=== PATIENT | female | born 1940 | race Caucasian/White ===

== ENCOUNTER 2021-02-08 10:16 | Inpatient (IN) ==
[2021-02-08] MEDS ORDERED: dexAMETHasone**PF** 10 MG/ML VIAL IV ONE (10:26)
[2021-02-08] MEDS ORDERED: ALBUT/IPRATROP 3MG/0.5MG NEB 3 ML VIAL INH STA (10:26)
--- NOTE | 2021-02-08 10:29 | Emergency Department Note ---
Impression & Plan Chronic respiratory failure with hypoxia and hypercapnia, AICD (automatic cardioverter/defibrillator) present, Influenza A ED Provider Note NAME: JENNI ARECHIGA AGE: 81 SEX: F : 1940 ARRIVES VIA: Ambulance INFORMANT: Patient, ED PROVIDER(S): Dain Fonseca MD Chief Complaint: Shortness of breath HPI: Patient does present due to concern for shortness of breath which is been ongoing. The daughter Kristine with whom I spoke via telephone and stated that she has been home since the from [facility] after an illness with flu and Covid. Patient was pending last dose of steroid and Tamiflu today. The patient has had significant shortness of breath tachypnea and decreased oxygen saturation on her baseline 4 L with just moving from the bed to the bedside commode. The daughter states that typically she would improve in about 5 to 10 minutes of time over the last several days but that today after about 45 to 50 minutes did not improve in her symptoms. The patient has had some shortness of breath and cough. Patient last smoked 3 weeks ago. The patient was vaccinated for Covid with maternal but did not receive a booster. No seasonal flu shot. The patient has not had any chest pains abdominal pains vomiting or diarrhea. No loss of taste or smell. The daughter is the power of claims attorney and states that she is DNR/DNI but if she is in significant distress she would like her to be made comfortable. ROS: See HPI for pertinent positives and negatives. A total of 10 systems were reviewed and otherwise negative. Past medical history: See below Surgical history: See below Social history: See below Physical Exam: GENERAL: Moderately ill in appearance, wearing a mask, nasal cannula in place EYE EXAM: Normal conjunctiva. PERRL, no anisocoria and EOM's grossly intact w/o pain. NECK: Supple, no nuchal rigidity, no adenopathy, non-tender. No signs of meningismus. LUNGS: Coarse sounds bilateral bases with associated tachypnea. HEART: Tachycardic, no MRG. ABDOMEN: Abdomen soft, non-tender, normo-active bowel sounds, no masses, no rebound or guarding. BACK: No CVA TTP. SKIN: No rashes and no bruising. UPPER EXTREMITIES: Upper extremities are grossly normal. LOWER EXTREMITIES: Grossly normal, no edema. Negative Homans' sign bilaterally. NEURO EXAM: A&O x3, cranial nerves II-XII grossly intact, normal speech, moves all 4 extremities on command w/o issue. Differential diagnoses: Reactive airway disease, pneumonia, pneumothorax, COPD, CHF, infections, cardiac ischemia, pulmonary embolism, musculoskeletal, gastrointestinal, as well as other pathologies. Course: Patient was seen and evaluated the bedside. Full history physical exam was performed. EKG interpreted by me Sinus tachycardia, rate of 107, PVCs noted. Normal axis. Imaging Studies: See Below Cardiac monitoring: An order was placed for continuous cardiac monitoring. The monitor shows a rate of 98 with sinus rhythm. MDM: Patient was seen due to concern for worsening shortness of breath. Patient was ordered dexamethasone as well as duo nebs. The patient was placed on CPAP blood work was obtained. Patient is a white count of 13 with a normal H&H and platelet count. Patient's kidney function is normal with an elevated bicarb. The patient likely does have an elements of chronic CO2 retention as the patient's VBG shows a PCO2 of 65 with a pH of 7.38. Patient does have an elevated BUN to creatinine ratio. The patient's flu is positive Covid negative. RSV negative. Patient's chest x-ray does show atelectasis versus pneumonia with a trace left pleural effusion. I did speak to the on-call hospitalist Dr. Jaffe a CT angiography was ordered. Patient has no evidence of PE. No acute abnormalities based on CT angiography. Patient's procalcitonin is not elevated. BNP is not elevated. Critical Care: I have personally spent 75 minutes of critical care time in direct management of this patient. This includes bedside care, interpretation of diagnostic studies, and testing, discussion with consultants, patient, and family members, and other require inpatient management activities. This 75 minutes is in excess of all separately billable procedures. Past Med/Surg History Medical History Arthritis Chronic back pain Chronic systolic CHF (congestive heart failure) Dementia Depression GERD (gastroesophageal reflux disease) Goiter, nodular Hypokalemia Myocardial infarction Nephrolithiasis Paroxysmal atrial fibrillation Peripheral neuropathy Ulcerative colitis UTI (urinary tract infection) Surgical History AICD (automatic cardioverter/defibrillator) present Hx of cholecystectomy Social History Smoking Status: Unknown if ever smoked Tobacco Type: Cigarettes Smoking End Date: Last smoked 3 weeks ago; Hx Alcohol Use: No Hx Substance Use: No Current Living Situation: Family current occupational status: retired Feels Safe at Home: Yes Immunizations: Vaccinated for COVID-19 Moderna but without booster, unvaccinated for seasonal flu. Allergies Allergies Allergy/AdvReac Type Severity Reaction Status Date / Time No Known Allergies Allergy Verified 02/08/21 12:09 Home Meds Home Medications Medication Instructions Recorded Confirmed Lactobac 51-Bifidobac 1 cap PO DAILY@1200 03/28/20 02/08/21 3-L.lactis-S.thermophilus 4 billion cell capsule (Daily Probiotic (10 Strains)) atorvastatin 40 mg tablet 40 mg PO DAILY@1500 03/28/20 02/08/21 biotin 10,000 mcg capsule 10,000 mcg PO DAILY 03/28/20 02/08/21 cetirizine 10 mg tablet 10 mg PO QAM 03/28/20 02/08/21 cyanocobalamin (vitamin B-12) 5,000 mcg PO QAM 03/28/20 02/08/21 5,000 mcg sublingual tablet (Vitamin B-12) furosemide 40 mg tablet 40 mg PO QAM 03/28/20 02/08/21 lamotrigine 100 mg tablet 100 mg PO AMHS 03/28/20 02/08/21 lorazepam 0.5 mg tablet 0.5 mg PO DAILY@1500 03/28/20 02/08/21 multivitamin with calcium and 1 tab PO DAILY 03/28/20 02/08/21 minerals-folic acid 200 mcg tablet (One-A-Day Proactive 65 Plus) naloxegol 25 mg tablet (Movantik) 25 mg PO QAM 03/28/20 02/08/21 omeprazole 20 mg capsule,delayed 20 mg PO BID 03/28/20 02/08/21 release oxycodone-acetaminophen 10 mg-325 1 tab PO QID PRN 03/28/20 02/08/21 mg tablet paroxetine HCl 30 mg tablet 30 mg PO DAILY 03/28/20 02/08/21 potassium chloride 20 mEq 20 meq PO DAILY@1500 03/28/20 02/08/21 tablet,extended release(part/cryst) rivastigmine 1 patch TRANSDERMAL DAILY 03/28/20 02/08/21 sennosides 8.6 mg-docusate sodium 1 tab PO HS 03/28/20 02/08/21 50 mg tablet (Stool Softener-Laxative) baclofen 10 mg tablet 10 mg PO BID 02/08/21 02/08/21 fluticasone furoate 100 2 inh INHALATION BID 02/08/21 02/08/21 mcg-vilanterol 25 mcg/dose inhalation powder (Breo Ellipta) fluticasone propionate 50 2 spray INTRANASAL DAILY PRN 02/08/21 02/08/21 mcg/actuation nasal spray,suspension paroxetine HCl 37.5 mg 37.5 mg PO DAILY 02/08/21 02/08/21 tablet,extended release 24 hr quetiapine 25 mg tablet 50 mg PO HS 02/08/21 02/08/21 Results & Data (ED) Vital Signs Vital Signs - 24 hr 02/08/21 10:33 02/08/21 10:54 02/08/21 11:00 Temperature Temperature Source Pulse Rate 95 H 107 H 107 H Pulse Rate [Right Finger] Pulse Rate from SpO2 Sensor 106 H 114 H Respiratory Rate 40 H 33 H 32 H Respiratory Effort / Characteristics Spontaneous Respiratory Depth Shallow Respiratory Pattern Tachypnea Blood Pressure 135/90 Blood Pressure Mean 105 Pulse Oximetry 99 97 89 L Oxygen Delivery Method Fraction of Inspired Oxygen 50 Sepsis Recent Fever Within 48 Hours Sepsis New/Unexplained Change in Mental Status Sepsis Action Taken by Nursing 02/08/21 11:13 02/08/21 11:30 02/08/21 11:45 Temperature Temperature Source Pulse Rate 103 H Pulse Rate [Right Finger] 103 H Pulse Rate from SpO2 Sensor 99 H Respiratory Rate 40 H 34 H 20 Respiratory Effort / Characteristics Spontaneous Labored Spontaneous Respiratory Depth Respiratory Pattern Tachypnea Blood Pressure 118/84 Blood Pressure Mean 95 Pulse Oximetry 40 L 100 95 Oxygen Delivery Method CPAP CPAP Fraction of Inspired Oxygen Sepsis Recent Fever Within 48 Hours Sepsis New/Unexplained Change in Mental Status Sepsis Action Taken by Nursing 02/08/21 11:54 02/08/21 12:00 02/08/21 13:48 Temperature 37.3 C Temperature Source Oral Pulse Rate 99 H 96 H Pulse Rate [Right Finger] Pulse Rate from SpO2 Sensor 97 H Respiratory Rate 32 H 22 Respiratory Effort / Characteristics Spontaneous Respiratory Depth Normal Respiratory Pattern Regular Blood Pressure 117/78 Blood Pressure Mean 91 Pulse Oximetry 96 98 Oxygen Delivery Method Fraction of Inspired Oxygen 40 Sepsis Recent Fever Within 48 Hours No Sepsis New/Unexplained Change in Mental Status No Sepsis Action Taken by Nursing No Action Required Home Medications Current Medication List: was personally reviewed by me Laboratory Data Attestation: I reviewed the patient's lab results. Result diagrams: 02/08/21 11:04 02/08/21 11:04 Lab Results 02/08/21 02/08/21 02/08/21 Range/Units 10:48 11:04 11:04 WBC 13.49 H (4.8-10.8) K/uL RBC 4.22 (4.2-5.4) M/uL Hgb 12.2 (12.0-16.0) g/dL Hct 39.3 (37-47) % MCV 93.1 (80-100) fL MCH 28.9 (25-34) pg MCHC 31.0 L (32-36) g/dL RDW Std Deviation 57.4 H (36.4-46.3) fL RDW Coeff of Eric 17.3 H (11.5-14.5) % Plt Count 257 (130-400) K/uL MPV 10.8 H (7.4-10.4) fL Immature Gran % (Auto) 0.7 % Neut % (Auto) 80.2 % Lymph % (Auto) 11.4 % Ware % (Auto) 7.4 % Eos % (Auto) 0.2 % Baso % (Auto) 0.1 % Neut # (Auto) 10.81 H (1.4-6.5) K/uL Lymph # (Auto) 1.54 (1.2-3.4) K/uL Ware # (Auto) 1.00 H (0.11-0.59) K/uL Eos # (Auto) 0.03 (0-0.5) K/uL Baso # (Auto) 0.01 (0-0.2) K/uL Immature Gran # (Auto) 0.10 H (0.00-0.02) K/uL VBG pH (7.36-7.41) VBG pCO2 (38-50) mmHg VBG pO2 mmHg VBG HCO3 mmol/L VBG O2 Saturation % VBG Base Excess mEq/L Barometric Pressure mm/Hg Sodium 141 (136-145) mmol/L Potassium 3.8 (3.5-5.1) mmol/L Chloride 100 (98-107) mmol/L Carbon Dioxide 41 H* (21-32) mmol/L Anion Gap 0 L (3-11) BUN 24 H (7-18) mg/dl Creatinine 0.79 (0.6-1.2) mg/dl Est Cr Clr Drug Dosing 45.8 ml/min Est GFR ( Amer) 80.2 ml/min Est GFR (Non-Af Amer) 69.2 ml/min BUN/Creatinine Ratio 30.5 H (10-20) Glucose 98 (70-99) mg/dl Calcium 9.7 (8.5-10.1) mg/dl Magnesium 2.4 (1.8-2.4) mg/dl AST 17 (15-37) U/L ALT 23 (12-78) Alkaline Phosphatase 50 (45-117) U/L Troponin I < 0.015 (0-0.045) ng/ml NT-Pro-B Natriuret Pep 1406 (0-1800) pg/ml Total Protein 6.5 (6.4-8.2) gm/dl Albumin 3.1 L (3.4-5.0) gm/dl Globulin 3.4 (2.5-4.0) gm/dl Albumin/Globulin Ratio 0.9 (0.9-2) Procalcitonin (0-0.5) ng/ml SARS-CoV-2 (PCR) NEGATIVE (Negative) Influenza Type A (PCR) Positive A* (Neg) Influenza Type B (PCR) Negative (Neg) RSV (RT-PCR) Negative (Neg) 02/08/21 02/08/21 Range/Units 11:04 11:04 WBC (4.8-10.8) K/uL RBC (4.2-5.4) M/uL Hgb (12.0-16.0) g/dL Hct (37-47) % MCV (80-100) fL MCH (25-34) pg MCHC (32-36) g/dL RDW Std Deviation (36.4-46.3) fL RDW Coeff of Eric (11.5-14.5) % Plt Count (130-400) K/uL MPV (7.4-10.4) fL Immature Gran % (Auto) % Neut % (Auto) % Lymph % (Auto) % Ware % (Auto) % Eos % (Auto) % Baso % (Auto) % Neut # (Auto) (1.4-6.5) K/uL Lymph # (Auto) (1.2-3.4) K/uL Ware # (Auto) (0.11-0.59) K/uL Eos # (Auto) (0-0.5) K/uL Baso # (Auto) (0-0.2) K/uL Immature Gran # (Auto) (0.00-0.02) K/uL VBG pH 7.38 (7.36-7.41) VBG pCO2 65 H (38-50) mmHg VBG pO2 35 mmHg VBG HCO3 38 mmol/L VBG O2 Saturation < 60.0 % VBG Base Excess 10.5 mEq/L Barometric Pressure 740.1 mm/Hg Sodium (136-145) mmol/L Potassium (3.5-5.1) mmol/L Chloride (98-107) mmol/L Carbon Dioxide (21-32) mmol/L Anion Gap (3-11) BUN (7-18) mg/dl Creatinine (0.6-1.2) mg/dl Est Cr Clr Drug Dosing ml/min Est GFR ( Amer) ml/min Est GFR (Non-Af Amer) ml/min BUN/Creatinine Ratio (10-20) Glucose (70-99) mg/dl Calcium (8.5-10.1) mg/dl Magnesium (1.8-2.4) mg/dl AST (15-37) U/L ALT (12-78) Alkaline Phosphatase (45-117) U/L Troponin I (0-0.045) ng/ml NT-Pro-B Natriuret Pep (0-1800) pg/ml Total Protein (6.4-8.2) gm/dl Albumin (3.4-5.0) gm/dl Globulin (2.5-4.0) gm/dl Albumin/Globulin Ratio (0.9-2) Procalcitonin < 0.05 (0-0.5) ng/ml SARS-CoV-2 (PCR) (Negative) Influenza Type A (PCR) (Neg) Influenza Type B (PCR) (Neg) RSV (RT-PCR) (Neg) Administered Medications Discontinued Medications Albuterol (Albut/Ipratrop 3mg/0.5mg Neb 3 Ml Vial) 6 ml INH NOW STA Stop: 02/08/21 10:27 Last Admin: 02/08/21 11:12 Dose: 6 ml Documented by: [id number] Dexamethasone Sodium Phosphate (DexamethasonePf 10 Mg/Ml Vial) 6 mg IV NOW ONE Stop: 02/08/21 10:27 Last Admin: 02/08/21 11:10 Dose: 6 mg Documented by: [id number] Ioversol (Optiray 320 125ml) 88 ml IV ONCE ONE Stop: 02/08/21 14:05 Last Admin: 02/08/21 14:12 Dose: 88 ml Documented by: [id number] Imaging Data Radiologist's Impression: Chest X-Ray 02/08/21 10:26 XR chest 1V portable HISTORY: Dyspnea COMPARISON: Chest and left rib series 03/28/2020. FINDINGS: No pneumothorax. Blunting of the left lateral costophrenic sulcus may represent a trace left pleural effusion. Faint patchy density also noted at the left lung base. The right lung appears clear. The heart is normal in size. There are poststernotomy changes and left-sided pacemaker/defibrillator. No evidence for pulmonary edema. IMPRESSION: 1. Trace left pleural effusion. 2. Patchy densities within the left lung base may represent atelectasis or pneumonia. 3. No evidence for pulmonary edema. ACT 112: Negative or not required by law. Electronically signed by: Fred Corbett M.D. 02/08/2021 10:58 AM Chest CTA 02/08/21 12:46 CT angio chest PE protocol CLINICAL HISTORY: Dyspnea TECHNIQUE: Multidetector row helical CT of the chest was performed. Coronal and sagittal reformations were obtained. Coronal and sagittal MIPS were obtained from the axial data set and were submitted for review. Automated dose lowering techniques and/or adjustment according to patient size were utilized for this e xam. Comparison: Comparison is made to chest one view 02/08/2021 FINDINGS: Lungs and pleura: Scattered calcified granulomata are seen. There is atelectasis at the bilateral lung bases. Heart and pericardium: There is cardiomegaly without evidence of pericardial effusion. Mitral valvular prosthesis is partially visualized. Vessels: No evidence of pulmonary embolism. Moderate atherosclerotic disease is seen. Mediastinum and vaishnavi: Unremarkable. Chest wall and lower neck: Unremarkable. Abdomen: A hiatal hernia is seen. Bones: Degenerative changes in the thoracic spine. IMPRESSION: No evidence of pulmonary embolism. No acute abnormalities are seen. ACT 112: Negative or not required by law. Electronically signed by: Gerald Hawk M.D. 02/08/2021 2:31 PM Discharge Plan Visit Data Chief Complaint: Shortness of Breath/Dyspnea Stated Complaint: SOB ED Provider: Dain Fonseca Discharge Problem: Chronic respiratory failure with hypoxia and hypercapnia, AICD (automatic cardioverter/defibrillator) present, Influenza A Forms Stand Alone Forms: [facility] Prescriptions Prescriptions: No Action furosemide 40 mg tablet 40 mg PO QAM RF: 0 atorvastatin 40 mg tablet 40 mg PO DAILY@1500 RF: 0 cetirizine 10 mg tablet 10 mg PO QAM RF: 0 sennosides-docusate sodium [Stool Softener-Laxative] 8.6-50 mg tablet 1 tab PO HS RF: 0 potassium chloride 20 mEq tablet,ER particles/crystals 20 meq PO DAILY@1500 RF: 0 lorazepam 0.5 mg tablet 0.5 mg PO DAILY@1500 RF: 0 oxycodone-acetaminophen 10-325 mg tablet 1 tab PO QID PRN (Reason: Pain) RF: 0 paroxetine HCl 30 mg tablet 30 mg PO DAILY RF: 0 biotin 10,000 mcg capsule 10,000 mcg PO DAILY RF: 0 omeprazole 20 mg capsule,delayed release(DR/EC) 20 mg PO BID RF: 0 lamotrigine 100 mg tablet 100 mg PO AMHS RF: 0 rivastigmine 9.5 mg/24 hr patch 24 hour 1 patch transdermal DAILY RF: 0 cyanocobalamin (vitamin B-12) [Vitamin B-12] 5,000 mcg tablet, sublingual 5,000 mcg PO QAM RF: 0 Movantik 25 mg tablet 25 mg PO QAM RF: 0 One-A-Day Proactive 65 Plus 200 mcg tablet 1 tab PO DAILY RF: 0 Daily Probiotic (10 Strains) 4 billion cell capsule 1 cap PO DAILY@1200 RF: 0 quetiapine 25 mg tablet 50 mg PO HS RF: 0 baclofen 10 mg tablet 10 mg PO BID RF: 0 fluticasone propionate 50 mcg/actuation spray,suspension 2 spray INTRANASAL DAILY PRN (Reason: Congestion) RF: 0 paroxetine HCl 37.5 mg tablet extended release 24 hr 37.5 mg PO DAILY RF: 0 Breo Ellipta 100-25 mcg/dose blister with device 2 inh INHALATION BID RF: 0 Referrals Referrals: Bony Guerrero M.D. [Primary Care Provider] -
--- NOTE | 2021-02-08 11:00 | XRay Report ---
XR chest 1V portable HISTORY: Dyspnea COMPARISON: Chest and left rib series 03/28/2020. FINDINGS: No pneumothorax. Blunting of the left lateral costophrenic sulcus may represent a trace lef t pleural effusion. Faint patchy density also noted at the left lung base. The right lung appears mahnaz ar. The heart is normal in size. There are poststernotomy changes and left-sided pacemaker/defibrilla tor. No evidence for pulmonary edema. IMPRESSION: 1. Trace left pleural effusion. 2. Patchy densities within the left lung base may represent atelectasis or pneumonia. 3. No evidence for pulmonary edema. ACT 112: Negative or not required by law. Electronically signed by: Fred Corbett M.D. 02/08/2021 10:58 AM
[2021-02-08 11:24] LABS: Base Excess VBG 10.5 mEq/L; HCO3 VBG 38 mmol/L; PCO2 VBG 65 mmHg (38-50); PO2 VBG 35 mmHg; pH VBG 7.38 (7.36-7.41)
[2021-02-08 11:26] LABS: Basophils # (auto) 0.01 K/uL (0-0.2); Basophils % (auto) 0.1 %; Eosinophils # (auto) 0.03 K/uL (0-0.5); Eosinophils % (auto) 0.2 %; Hematocrit (blood only) 39.3 % (37-47); Hemoglobin 12.2 g/dL (12.0-16.0); Immature Granulocytes % (auto) 0.7 %; Lymphocytes # (auto) 1.54 K/uL (1.2-3.4); Lymphocytes % (auto) 11.4 %; Mean Corpuscular Hemoglobin 28.9 pg (25-34); Mean Corpuscular Volume 93.1 fL (80-100); Mean Platelet Volume 10.8 fL (7.4-10.4); Monocytes % (auto) 7.4 %; Neutrophils # (auto) 10.81 K/uL (1.4-6.5); Neutrophils % (auto) 80.2 %; Platelet Count 257 K/uL (130-400); RDW Coefficient of Variation 17.3 % (11.5-14.5); RDW Standard Deviation 57.4 fL (36.4-46.3); Red Blood Count 4.22 M/uL (4.2-5.4); White Blood Count 13.49 K/uL (4.8-10.8)
[2021-02-08 11:29] LABS: Oxygen Saturation VBG < 60.0 %
[2021-02-08 12:01] LABS: Alanine Aminotransferase 23 (12-78); Albumin Globulin Ratio 0.9 (0.9-2); Albumin Level 3.1 gm/dl (3.4-5.0); Alkaline Phosphatase 50 U/L (45-117); Anion Gap 0 (3-11); Aspartate Aminotransferase 17 U/L (15-37); BUN Creatinine Ratio 30.5 (10-20); Blood Urea Nitrogen 24 mg/dl (7-18); Calcium 9.7 mg/dl (8.5-10.1); Carbon Dioxide 41 mmol/L (21-32); Chloride 100 mmol/L (98-107); Creatinine Clr Calc Pharmacy 45.8 ml/min; Est GFR (African American) 80.2 ml/min; Est GFR (Non-African American) 69.2 ml/min; Globulin 3.4 gm/dl (2.5-4.0); Glucose 98 mg/dl (70-99); Magnesium 2.4 mg/dl (1.8-2.4); NT Pro B Type Natriuretic Pept 1406 pg/ml (0-1800); Potassium 3.8 mmol/L (3.5-5.1); Sodium 141 mmol/L (136-145); Total Protein 6.5 gm/dl (6.4-8.2); Troponin I < 0.015 ng/ml (0-0.045)
[2021-02-08 12:06] LABS: Influenza B virus by PCR Negative (Neg); RSV by PCR Negative (Neg); SARS CoV2 RNA(COVID-19) InHosp NEGATIVE (Negative)
[2021-02-08 12:20] LABS: Influenza A virus by PCR Positive (Neg)
--- NOTE | 2021-02-08 12:20 | Electrocardiogram Report ---
Test Reason : Blood Pressure : / mmHG Vent. Rate : 107 BPM Atrial Rate : 108 BPM P-R Int : 142 ms QRS Dur : 092 ms QT Int : 322 ms P-R-T Axes : 058 061 -26 degrees QTc Int : 429 ms Poor data quality, interpretation may be adversely affected Sinus tachycardia with frequent , and consecutive Premature ventricular complexes Poor R wave progression, consider anterior FL vs. lead placement vs. LVH Abnormal ECG No previous ECGs available Confirmed by Malick Barfield ([id number]) on 02/08/2021 12:19:49 PM Referred By: REFERRED SELF Confirmed By:Malick Barfield
--- NOTE | 2021-02-08 13:32 | History & Physical Report ---
Date of Service February 08, 2021 Assessment & Plan (1) Influenza A: (2) Pneumonia and influenza: Plan: Ms. Keita is an 81 year old female with a history of Asthma, COPD, Chronic Hypoxic and Hypercapnic Respiratory Failure (on chronic supplemental O2 at 4 L/min), CAD s/p NM 2005 s/p 2 Intracoronary Stents followed by CABG x 2 Vessels, Ischemic Cardiomyopathy s/p AICD, Chronic Systolic CHF, Dementia, GERD, Depression, Nodular Goiter, Peripheral Neuropathy, Ulcerative Colitis, Nephrolithiasis, and Paroxysmal Atrial Fibrillation who developed significant shortness of breath, adventitious breath sounds, coughing, and hypoxemia on 01/21/2021. She was subsequently admitted [facility] on 01/25/25 -- but I do not have access to her medical records that hospitalization but this is when she was diagnosed with COVID 19 pneumonia. She was subsequently discharged, but she continued to have SOB, hypoxia, cough, pleuritic chest pain and was subsequently admitted [facility] from 01/29/21 through 02/03/21 with SARS Co-V 2 Pneumonia, tested positive for Influenza, and was diagnosed with Acute on Chronic Hypoxic and Hypercapnic Respiratory Failure. During that hospitalization her troponin level was elevated and she was diagnosed with an NSTEMI. Patient was treated with IV Solu-Medrol, supplemental O2, and Tamiflu. She continued on oral Dexamethasone and Tamiflu x 5 days following discharge (today was her last day of these medications). Patient has continued to cough, is SOB at rest and with exertion, becomes hypoxic with minimal exertion (according to her daughter her SpO2 dropped from the mid 90's into the mid 80's just transferring to her bedside commode today). Her oxygen level would come back up within 5-10 minutes of rest, however over the past couple of days her SpO2 remained in the mid 80s for about 45 to 50 minutes after resting. Today she was struggling very much to catch her breath, so EMS was activated, and she was brought here for further evaluation. Patient was started on CPAP in the ER, her oxygen saturations are staying up in the upper 90's and she is much less short of breath at this point. CTA of the chest shows no evidence of pulmonary embolism. Chest x-ray shows patchy densities in the left base which could represent pneumonia versus atelectasis. She is currently afebrile, but has an elevated WBC count of 13.49 K/uL with a leftward shift. Venous blood gas shows a pCO2 of 65 with a PO2 of 35 and a pH of 7.38. Procalcitonin level is < 0.05ng/ml. Influenza a is positive. SARS-CoV-2 PCR is negative. Recommend the followin. Admit to telemetry. 2. Continue CPAP with supplemental oxygen, wean off as tolerated. 3. Continue Cefepime and azithro in case of secondary bacterial PNA, Gram neg PNA given recent hospitalizations -check MRSA swab and start MRSA coverage if positive 4. Continue IV Dexamethasone 6 mg daily. 5. DuoNeb nebulizers q.i.d.. 6. Monitor daily laboratories. 7. Pulmonology consult. 8. COVID precautions, droplet precautions. 9. Repeat SARS-CoV-2 PCR on 02/09/21 and if negative again, can come off COVID precautions as per Infection Control (3) Chronic respiratory failure with hypoxia and hypercapnia: Plan: -- As outlined above. (4) COPD (chronic obstructive pulmonary disease): Plan: -- Continue usual inhalers. -- Duoneb nebulizer treatments. -- Continue supplemental O2. -- Wean off of CPAP as tolerated. (5) CAD (coronary artery disease): Plan: CAD s/p NM 2004 s/p 2 Intracoronary Stents followed by CABG x 2 Vessels. Details not known. -- Continue Atorvastatin 40 mg daily. -- She should be on Aspirin 81 mg daily. -- Troponin I undetectable. (6) Cardiomyopathy: Plan: -- Obtain records from recent hospitalizations, she likely had an echocardiogram when she bumped her troponin I level. -- No evidence of heart failure at this time. -- Continue Lasix 40 mg daily. -- Monitor I&O's. (7) AICD (automatic cardioverter/defibrillator) present: Plan: DVT proph-Lovenox Dispo-admit to PCU, COVID precautions History of Present Illness Chief Complaint: -- SOB, Tachypnea, Hypoxia secondary to Pneumonia. -- Influenza. -- Recent SARS CoV 2 Pneumonia complicated by Acute on Chronic Respiratory Failure. -- COPD Exacerbation. Primary Care Provider: Bony Guerrero Ms. Keita is an 81 year old female with a history of Asthma, COPD, Chronic Hypoxic and Hypercapnic Respiratory Failure (on chronic supplemental O2 at 4 L/min), CAD s/p NM 2004 s/p 2 Intracoronary Stents followed by CABG x 2 Vessels, Ischemic Cardiomyopathy s/p AICD, Chronic Systolic CHF, Dementia, GERD, D epression, Nodular Goiter, Peripheral Neuropathy, Ulcerative Colitis, Nephrolithiasis, and Paroxysmal Atrial Fibrillation who developed significant shortness of breath, adventitious breath sounds, coughing, and hypoxemia on 01/21/2021. She was subsequently admitted [facility] on 01/25/25 -- but I do not have access to her medical records that hospitalization. She continued to have SOB, hypoxia, cough, pleuritic chest pain and was subsequently admitted [facility] from 01/29/21 through 02/03/21 with SARS Co-V 2 Pneumonia, tested positive for Influenza, and was diagnosed with Acute on Chronic Hypoxic and Hypercapnic Respiratory Failure. During that hospitalization her troponin level was elevated and she was diagnosed with an NSTEMI. Patient was treated with IV Solu-Medrol, supplemental O2, and Tamiflu. She continued on oral Dexamethasone and Tamiflu x 5 days following discharge (today was her last day of these medications). Patient has continued to cough, is SOB at rest and with exertion, becomes hypoxic with minimal exertion (according to her daughter her SpO2 dropped from the mid 90's into the mid 80's). Typically her oxygen level would come back up within 5-10 minutes of rest, however over the past couple of days her SpO2 remained in the mid 80s for about 45 to 50 minutes after resting. Today she was struggling very much to catch her breath, so EMS was activated, and she was brought here for further evaluation. Patient was started on CPAP in the ER, her oxygen saturations are staying up in the upper 90's and she is much less short of breath at this point. Patient denies any fevers, chills, headache, stiff neck. She does admit to pleuritic right anterior chest pain, but has not had any anginal discomfort. She denies any nausea, vomiting, or diaphoresis. She has not been coughing up sputum but she has been wheezing a lot. She denies any hemoptysis. Allergies Allergy/AdvReac Type Severity Reaction Status Date / Time No Known Allergies Allergy Verified 02/08/21 12:09 Home Medications Medication Instructions Recorded Confirmed Type Lactobac 51-Bifidobac 1 cap PO DAILY@1200 03/28/20 02/08/21 History 3-L.lactis-S.thermophilus 4 billion cell capsule (Daily Probiotic (10 Strains)) atorvastatin 40 mg tablet 40 mg PO DAILY@1500 03/28/20 02/08/21 History biotin 10,000 mcg capsule 10,000 mcg PO DAILY 03/28/20 02/08/21 History cetirizine 10 mg tablet 10 mg PO QAM 03/28/20 02/08/21 History cyanocobalamin (vitamin B-12) 5,000 mcg PO QAM 03/28/20 02/08/21 History 5,000 mcg sublingual tablet (Vitamin B-12) furosemide 40 mg tablet 40 mg PO QAM 03/28/20 02/08/21 History lamotrigine 100 mg tablet 100 mg PO AMHS 03/28/20 02/08/21 History lorazepam 0.5 mg tablet 0.5 mg PO DAILY@1500 03/28/20 02/08/21 History multivitamin with calcium and 1 tab PO DAILY 03/28/20 02/08/21 History minerals-folic acid 200 mcg tablet (One-A-Day Proactive 65 Plus) naloxegol 25 mg tablet (Movantik) 25 mg PO QAM 03/28/20 02/08/21 History omeprazole 20 mg capsule,delayed 20 mg PO BID 03/28/20 02/08/21 History release oxycodone-acetaminophen 10 mg-325 1 tab PO QID PRN 03/28/20 02/08/21 History mg tablet potassium chloride 20 mEq 20 meq PO DAILY@1500 03/28/20 02/08/21 History tablet,extended release(part/cryst) rivastigmine 1 patch TRANSDERMAL DAILY 03/28/20 02/08/21 History sennosides 8.6 mg-docusate sodium 1 tab PO HS 03/28/20 02/08/21 History 50 mg tablet (Stool Softener-Laxative) baclofen 10 mg tablet 10 mg PO BID 02/08/21 02/08/21 History fluticasone furoate 100 1 inh INHALATION DAILY 02/08/21 02/08/21 History mcg-vilanterol 25 mcg/dose inhalation powder (Breo Ellipta) fluticasone propionate 50 2 spray INTRANASAL DAILY PRN 02/08/21 02/08/21 History mcg/actuation nasal spray,suspension paroxetine HCl 37.5 mg 37.5 mg PO DAILY 02/08/21 02/08/21 History tablet,extended release 24 hr quetiapine 25 mg tablet 50 mg PO HS 02/08/21 02/08/21 History Past Med/Surg History Medical History Arthritis Chronic back pain Chronic systolic CHF (congestive heart failure) Dementia Depression GERD (gastroesophageal reflux disease) Goiter, nodular Hypokalemia Myocardial infarction Nephrolithiasis Paroxysmal atrial fibrillation Peripheral neuropathy Ulcerative colitis UTI (urinary tract infection) Surgical History AICD (automatic cardioverter/defibrillator) present Hx of cholecystectomy Social History Smoking Status: Unknown if ever smoked Tobacco Type: Cigarettes Smoking End Date: Last smoked 3 weeks ago; Hx Alcohol Use: No Hx Substance Use: No Current Living Situation: Family current occupational status: retired Feels Safe at Home: Yes Review of Systems Review of Systems: Ten point review of systems was completed and is negative with the exception of what is mentioned in the HPI. Physical Exam Physical Exam: GENERAL: Patient sitting upright in hospital bed with CPAP mask in place, she is in no acute distress. HEENT: Head is atraumatic, normocephalic. EOM's intact. Facies symmetric. No perioral cyanosis. NECK: No JVD. JVP is not elevated. Carotid upstrokes are + 2 bilaterally. CHEST/LUNGS: Diffuse expiratory wheezes throughout, with crackles in the left base. CVS: S1 and S2 are regular without obvious murmurs, gallops, or rubs. PMI is nonpalpable. No lifts, heaves, or thrills. No abdominal aortic or renal bruits. ABDOMINAL EXAM: Bowel sounds are present. No masses, organomegaly, or tenderness. EXTREMITIES: No clubbing or cyanosis. No edema. Intact radial pulses bilaterally. NEUROLOGIC EXAM: Patient is awake, alert, and interactive. She is oriented to self, place, and year. Pleasant and cooperative. Answers questions appropriately. Speech is clear. Normal movement in all 4 extremities. Gait pattern was not assessed. shelter monitor shows normal sinus rhythm to sinus tachycardia. EKG 02/08/2021: Sinus tachycardia at 107 beats per minute, with ventricular couplets, poor R-wave progression across precordium, consider anterior NM versus lead placement verses LVH. No prior tracings available for comparison. Results & Data Results & Data ([facility]) Vital Signs (Past 12 Hours) Vital Signs Temp Pulse Pulse Resp BP Pulse Ox 02/08/21 12:00 99 H 32 H 117/78 96 02/08/21 11:54 37.3 C 02/08/21 11:45 20 95 02/08/21 11:30 103 H 34 H 118/84 100 02/08/21 11:13 103 H 40 H 40 L 02/08/21 11:00 107 H 32 H 135/90 89 L 02/08/21 10:54 107 H 33 H 97 02/08/21 10:33 95 H 40 H 99 Laboratory Results Laboratory Results - last 24 hr 02/08/21 02/08/21 02/08/21 10:48 11:04 11:04 WBC 13.49 H RBC 4.22 Hgb 12.2 Hct 39.3 MCV 93.1 MCH 28.9 MCHC 31.0 L RDW Std Deviation 57.4 H RDW Coeff of Eric 17.3 H Plt Count 257 MPV 10.8 H Immature Gran % (Auto) 0.7 Neut % (Auto) 80.2 Lymph % (Auto) 11.4 Whitfield % (Auto) 7.4 Eos % (Auto) 0.2 Baso % (Auto) 0.1 Neut # (Auto) 10.81 H Lymph # (Auto) 1.54 Whitfield # (Auto) 1.00 H Eos # (Auto) 0.03 Baso # (Auto) 0.01 Immature Gran # (Auto) 0.10 H VBG pH VBG pCO2 VBG pO2 VBG HCO3 VBG O2 Saturation VBG Base Excess Barometric Pressure Sodium 141 Potassium 3.8 Chloride 100 Carbon Dioxide 41 H* Anion Gap 0 L BUN 24 H Creatinine 0.79 Est Cr Clr Drug Dosing 45.8 Est GFR ( Amer) 80.2 Est GFR (Non-Af Amer) 69.2 BUN/Creatinine Ratio 30.5 H Glucose 98 Calcium 9.7 Magnesium 2.4 Total Bilirubin Pending AST 17 ALT 23 Alkaline Phosphatase 50 Troponin I < 0.015 NT-Pro-B Natriuret Pep 1406 Total Protein 6.5 Albumin 3.1 L Globulin 3.4 Albumin/Globulin Ratio 0.9 Procalcitonin SARS-CoV-2 (PCR) NEGATIVE Influenza Type A (PCR) Positive A* Influenza Type B (PCR) Negative RSV (RT-PCR) Negative 02/08/21 02/08/21 11:04 11:04 WBC RBC Hgb Hct MCV MCH MCHC RDW Std Deviation RDW Coeff of Eric Plt Count MPV Immature Gran % (Auto) Neut % (Auto) Lymph % (Auto) Whitfield % (Auto) Eos % (Auto) Baso % (Auto) Neut # (Auto) Lymph # (Auto) Whitfield # (Auto) Eos # (Auto) Baso # (Auto) Immature Gran # (Auto) VBG pH 7.38 VBG pCO2 65 H VBG pO2 35 VBG HCO3 38 VBG O2 Saturation < 60.0 VBG Base Excess 10.5 Barometric Pressure 740.1 Sodium Potassium Chloride Carbon Dioxide Anion Gap BUN Creatinine Est Cr Clr Drug Dosing Est GFR ( Amer) Est GFR (Non-Af Amer) BUN/Creatinine Ratio Glucose Calcium Magnesium Total Bilirubin AST ALT Alkaline Phosphatase Troponin I NT-Pro-B Natriuret Pep Total Protein Albumin Globulin Albumin/Globulin Ratio Procalcitonin < 0.05 SARS-CoV-2 (PCR) Influenza Type A (PCR) Influenza Type B (PCR) RSV (RT-PCR) Diagnostic Findings CTA 02/08/21: Lungs and pleura: Scattered calcified granulomata are seen. There is atelectasis at the bilateral lung bases. Heart and pericardium: There is cardiomegaly without evidence of pericardial effusion. Mitral valvular prosthesis is partially visualized. Vessels: No evidence of pulmonary embolism. Moderate atherosclerotic disease is seen. Mediastinum and vaishnavi: Unremarkable. Chest wall and lower neck: Unremarkable. Abdomen: A hiatal hernia is seen. Bones: Degenerative changes in the thoracic spine. IMPRESSION: -- No evidence of pulmonary embolism. -- No acute abnormalities are seen. CXR 02/08/21: No pneumothorax. Blunting of the left lateral costophrenic sulcus may represent a trace left pleural effusion. Faint patchy density also noted at the left lung base. The right lung appears clear. The heart is normal in size. There are poststernotomy changes and left-sided pacemaker/defibrillator. No evidence for pulmonary edema. IMPRESSION: 1. Trace left pleural effusion. 2. Patchy densities within the left lung base may represent atelectasis or pneumonia. 3. No evidence for pulmonary edema. Code Status & VTE Plan Code Status DNR/DNI VTE Prophylaxis Plan VTE Prophylaxis will be ordered: Yes Supervising Physician Co-Signing Physician Notes PA Supervision Note: I personally saw and examined the patient. I verified all rivero points and agree with PATRICIA Garcia with the following exceptions and/or additions: Pt presents with owrsening hypoxia after wo recent hospitalizations for COVID-19 PNA and Influenza A simultaneously. SH ehas a long h/o COPD and CHF, cardiac issues as noted above. Is on 4L NC O2 at home since hospitalization. Here appears more comfortable on CPAP. Knows she is in the hospital and is pleasant, interactive. History and ROS reviewed Vitals reviewed NAD, AAOx2, CPAP in place RRR no mgr Lungs with bilat wheezes and rhonchi Abd +BS soft NT ND Ext mild edema legs L>R, no calf tenderness Labs and Rads reviewed 81 yo female with Influenza A and recent COVID-19 infection, with COPD and acute on chronic resp failure with hypoxia and hypercapnia, requiring more O2 and with tachypnea Ruled out PE and no PTX, no significant PNA really on CTA Chest Could be from wheezing or atypical secondary bacterial infection Continue supplemental O2 and wean down as tolerated continue abx continue steroids PG Care Time/CCT Total # of Minutes Spent Total Time Spent with Patient: Total time spent is greater than 50% in coordination of care (as documented) at patient's floor/unit and/or counseling patient:46 Coding Level of Care Code 99141 Initial Inpt Care Lvl 3 Diagnoses Influenza A J10.1 Pneumonia and influenza J11.00 Chronic respiratory failure with hypoxia and hypercapnia J96.11; J96.12 COPD (chronic obstructive pulmonary disease) J44.9 CAD (coronary artery disease) I25.10 Cardiomyopathy I42.9 AICD (automatic cardioverter/defibrillator) present Z95.810 Time Spent (min) 64
[2021-02-08] MEDS ORDERED: OPTIRAY 320 125ml IV ONE (14:04)
--- NOTE | 2021-02-08 14:32 | CT Scan Report ---
CT angio chest PE protocol CLINICAL HISTORY: Dyspnea TECHNIQUE: Multidetector row helical CT of the chest was performed. Coronal and sagittal reformations were obtained. Coronal and sagittal MIPS were obtained from the axial data set and were submitted fo r review. Automated dose lowering techniques and/or adjustment according to patient size were utiliz ed for this exam. Comparison: Comparison is made to chest one view 02/08/2021 FINDINGS: Lungs and pleura: Scattered calcified granulomata are seen. There is atelectasis at the bilateral daysi g bases. Heart and pericardium: There is cardiomegaly without evidence of pericardial effusion. Mitral valvula r prosthesis is partially visualized. Vessels: No evidence of pulmonary embolism. Moderate atherosclerotic disease is seen. Mediastinum and vaishnavi: Unremarkable. Chest wall and lower neck: Unremarkable. Abdomen: A hiatal hernia is seen. Bones: Degenerative changes in the thoracic spine. IMPRESSION: No evidence of pulmonary embolism. No acute abnormalities are seen. ACT 112: Negative or not required by law. Electronically signed by: Gerald Hawk M.D. 02/08/2021 2:31 PM
[2021-02-08] MEDS ORDERED: MoRPHine SULFATE 2 MG/ML CARP IV PRN (17:37)
[2021-02-08] MEDS ORDERED: MAGNESIUM HYDROXIDE SUSP 30 ML UDC PO PRN (17:37)
[2021-02-08] MEDS ORDERED: ALUMINUM/MAGNESIUM SUSP 30 ML UDC PO PRN (17:37)
[2021-02-08] MEDS ORDERED: FLUTICASONE PROPIONATE NA SPR 16 GM BTL PRN (17:37)
[2021-02-08] MEDS ORDERED: NITROGLYCERIN SL 0.4 MG/TAB TAB SL PRN (17:37)
[2021-02-08] MEDS ORDERED: ONDANSETRON INJ 2 MG/ML 2 ML VIAL IV PRN (17:37)
[2021-02-08] MEDS ORDERED: oxyCODONE/ACETAMINOPHEN 10-325 TAB PO PRN (17:37)
[2021-02-08] MEDS ORDERED: POLYETHYLENE (MIRALAX) 17 GM PACK PO PRN (17:37)
[2021-02-08] MEDS ORDERED: PIPERACILL/TAZOBAC CONSULT ACTIVE PRN (18:02)
[2021-02-08] MEDS ORDERED: PIPERACILLIN/TAZOBACTAM 3.375 GM in DEXTROSE 5% 100 ML IV SCH (18:15)
[2021-02-08 18:43] LABS: Bilirubin,Total 0.2 mg/dl (0.2-1)
[2021-02-08] MEDS: ATORVASTATIN 40 MG TAB PO SCH (20:18)
[2021-02-08] MEDS: ALBUT/IPRATROP 3MG/0.5MG NEB 3 ML VIAL NEB SCH ×2 (20:47→20:48)
[2021-02-08] MEDS: LORazepam 0.5 MG TAB PO SCH (20:56)
[2021-02-08] MEDS: POTASSIUM CHLORIDE CRTAB 20 MEQ TABCR PO SCH (20:56)
[2021-02-08] MEDS: AZITHROMYCIN 500 MG in DEXTROSE 5% 250 ML IV SCH (21:00)
[2021-02-08] MEDS: CEFEPIME 2,000 MG in SYRINGE 0 ML IV SCH (21:01)
[2021-02-08] MEDS: ENOXAPARIN INJ 30 MG/0.3 ML SYR SQ SCH (21:02)
[2021-02-08] MEDS: BACLOFEN 10 MG TAB PO SCH (21:04)
[2021-02-08] MEDS: QUEtiapine FUMARATE 25 MG TABLET PO SCH (21:07)
[2021-02-08] MEDS: lamoTRIgine 100 MG TAB PO SCH (21:07)
[2021-02-08] MEDS: PANTOprazole 40 MG TAB PO SCH (21:08)
[2021-02-08] MEDS: DOCUSATE SODIUM/SENNA 50/8.6MG TAB PO SCH (21:09)
[2021-02-09] MEDS: CEFEPIME 2,000 MG in SYRINGE 0 ML IV SCH (06:03)
[2021-02-09] MEDS: ALBUT/IPRATROP 3MG/0.5MG NEB 3 ML VIAL NEB SCH ×4 (07:40→19:13)
[2021-02-09 08:07] LABS: Basophils # (auto) 0.01 K/uL (0-0.2); Basophils % (auto) 0.1 %; Eosinophils # (auto) 0.03 K/uL (0-0.5); Eosinophils % (auto) 0.2 %; Hematocrit (blood only) 37.2 % (37-47); Hemoglobin 11.6 g/dL (12.0-16.0); Immature Granulocytes # (auto) 0.06 K/uL (0.00-0.02); Immature Granulocytes % (auto) 0.5 %; Lymphocytes # (auto) 1.33 K/uL (1.2-3.4); Lymphocytes % (auto) 10.8 %; Mean Corpuscular Hemoglobin 28.8 pg (25-34); Mean Corpuscular Hgb Conc 31.2 g/dL (32-36); Mean Corpuscular Volume 92.3 fL (80-100); Mean Platelet Volume 10.3 fL (7.4-10.4); Monocytes # (auto) 0.91 K/uL (0.11-0.59); Monocytes % (auto) 7.4 %; Neutrophils # (auto) 9.92 K/uL (1.4-6.5); Platelet Count 237 K/uL (130-400); RDW Coefficient of Variation 17.2 % (11.5-14.5); RDW Standard Deviation 56.4 fL (36.4-46.3); Red Blood Count 4.03 M/uL (4.2-5.4); White Blood Count 12.26 K/uL (4.8-10.8)
[2021-02-09 08:34] LABS: BUN Creatinine Ratio 33.1 (10-20); Calcium 9.6 mg/dl (8.5-10.1); Creatinine Clr Calc Pharmacy 50.1 ml/min; Est GFR (African American) 92.9 ml/min; Est GFR (Non-African American) 80.1 ml/min; Magnesium 2.6 mg/dl (1.8-2.4); Potassium 4.3 mmol/L (3.5-5.1)
--- NOTE | 2021-02-09 08:36 | Pulmonary Consultation ---
Date of Consultation February 09, 2021 Assessment & Plan (1) Influenza A: (2) COPD (chronic obstructive pulmonary disease): (3) Chronic respiratory failure with hypoxia and hypercapnia: CT chest 02/08/2021 personally reviewed: Centrilobular emphysema appreciated bilaterally Right lower lobe cyst, Right lower lobe peripheral nodule. No clear pulmonary infiltrate Air trapping No PE No mediastinal adenopathy --Acute on chronic hypoxic hypercapnic respiratory failure Multifactorial Patient's underlying CHF playing a role on top of COPD and recent influenza COVID-19 PCR negative x2 on this admission Influenza A positive Procalcitonin negative NT BNP 1406 Patient has completed Tamiflu --COPD Continue with inhaled bronchodilators as well as nebulizers I will add Incruse to the regimen --History of COVID-19 pneumonia 01/25/2021 S/p hospitalization and discharge on 01/29/2021 Plan: O2 supplementation only to keep oxygen saturation 88-92%. Patient is back to her baseline O2 requirement. I would actually recommend to go lower than 4 L Given the recent COVID-19 pneumonia as well as influenza she might need more oxygen on exertion I am going to discontinue dexamethasone as it is not a good combination to be given if the patient has flu positive. I did not hear any wheezing on physical exam as well I had added Tamiflu but then I realized the patient has already completed the course of Tamiflu and will discontinue it. I do not see any clear pulmonary infiltrate. Procalcitonin is negative. Can discontinue cefepime if it is for pulmonary source. Can continue with azithromycin for 3 days and then stop BiPAP nightly and as needed shortness of breath Anxiety might also be playing a role in patient's complaint of chest pain. Will defer this to primary care If any respiratory depressant medications are given to the patient I would recommend to give a lower dose and if higher dose are given to keep the patient on BiPAP during that time No further recommendation from pulmonary perspective. Would recommend to have pulmonary rehab on discharge We will sign off. Please call directly with any questions Please note the above document was generated using voice recognition software. It may contain grammatical, syntax or spelling errors.Any formal questions or concerns about the content, text or information contained within the body of this dictation should be directly addressed to the provider for clarification. History of Present Illness Attending Physician: Sumi Jaffe MD History of Present Illness 81-year-old female past medical history of COPD on chronic oxygen 4 L, coronary artery disease s/p SD and CABG in the past, cardiomyopathy s/p AICD, dementia, GERD presented to the hospital with complaints of Shortness of breath as well as hypoxia on exertion. Patient had prolonged course of admissions in the last month. She tested positive for COVID-19 on 01/25/2025 where she was treated for it. She again had another admission at [facility] where she tested positive for influenza and was treated with 5 days of Tamiflu. She has completed dexamethasone course as well Please make note patient is a very poor historian At the time of examination denied any issues when it comes to her breathing She was only complaining of chest pain and wanted hot coffee with extra sugar in it. On asking if she has any cough she denies. As per the patient she has been having chest pain for a long time it is not new. Denies any radiation. Has been coughing. Does not bring up any phlegm. Denies any dysuria or diarrhea Social history: [id number] smoking history Allergies Allergy/AdvReac Type Severity Reaction Status Date / Time No Known Allergies Allergy Verified 02/08/21 12:09 Home Medications Medication Instructions Recorded Confirmed Type Lactobac 51-Bifidobac 1 cap PO DAILY@1200 03/28/20 02/08/21 History 3-L.lactis-S.thermophilus 4 billion cell capsule (Daily Probiotic (10 Strains)) atorvastatin 40 mg tablet 40 mg PO DAILY@1500 03/28/20 02/08/21 History biotin 10,000 mcg capsule 10,000 mcg PO DAILY 03/28/20 02/08/21 History cetirizine 10 mg tablet 10 mg PO QAM 03/28/20 02/08/21 History cyanocobalamin (vitamin B-12) 5,000 mcg PO QAM 03/28/20 02/08/21 History 5,000 mcg sublingual tablet (Vitamin B-12) furosemide 40 mg tablet 40 mg PO QAM 03/28/20 02/08/21 History lamotrigine 100 mg tablet 100 mg PO AMHS 03/28/20 02/08/21 History lorazepam 0.5 mg tablet 0.5 mg PO DAILY@1500 03/28/20 02/08/21 History multivitamin with calcium and 1 tab PO DAILY 03/28/20 02/08/21 History minerals-folic acid 200 mcg tablet (One-A-Day Proactive 65 Plus) naloxegol 25 mg tablet (Movantik) 25 mg PO QAM 03/28/20 02/08/21 History omeprazole 20 mg capsule,delayed 20 mg PO BID 03/28/20 02/08/21 History release oxycodone-acetaminophen 10 mg-325 1 tab PO QID PRN 03/28/20 02/08/21 History mg tablet potassium chloride 20 mEq 20 meq PO DAILY@1500 03/28/20 02/08/21 History tablet,extended release(part/cryst) rivastigmine 1 patch TRANSDERMAL DAILY 03/28/20 02/08/21 History sennosides 8.6 mg-docusate sodium 1 tab PO HS 03/28/20 02/08/21 History 50 mg tablet (Stool Softener-Laxative) baclofen 10 mg tablet 10 mg PO BID 02/08/21 02/08/21 History fluticasone furoate 100 1 inh INHALATION DAILY 02/08/21 02/08/21 History mcg-vilanterol 25 mcg/dose inhalation powder (Breo Ellipta) fluticasone propionate 50 2 spray INTRANASAL DAILY PRN 02/08/21 02/08/21 History mcg/actuation nasal spray,suspension paroxetine HCl 37.5 mg 37.5 mg PO DAILY 02/08/21 02/08/21 History tablet,extended release 24 hr quetiapine 25 mg tablet 50 mg PO HS 02/08/21 02/08/21 History Patient History Medical History (Updated 02/09/21 @ 15:52 by Sumi Jaffe MD) Arthritis Chronic back pain Chronic systolic CHF (congestive heart failure) Dementia Depression GERD (gastroesophageal reflux disease) Goiter, nodular Hypokalemia Myocardial infarction Nephrolithiasis Paroxysmal atrial fibrillation Peripheral neuropathy Ulcerative colitis UTI (urinary tract infection) Surgical History AICD (automatic cardioverter/defibrillator) present Hx of cholecystectomy Social History Smoking Status: Unknown if ever smoked Tobacco Type: Cigarettes Smoking End Date: Last smoked 3 weeks ago; Hx Alcohol Use: No Hx Substance Use: No Communication Ability: Impaired Current Living Situation: Family current occupational status: retired Feels Safe at Home: Yes Assistive Devices: Oxygen - Continuous, Walker and Wheelchair Review of Systems Review of Systems: All systems reviewed & are unremarkable except as noted in HPI & below Physical Exam Physical Exam: Constitutional: No acute distress HEENT: EOMI, PERRLA Respiratory system: Decreased air entry bilaterally, no wheeze, rhonchi, positive crackles bilateral lower lobe CVS: S1-S2 positive, positive 2 out of 6 systolic murmur appreciated best at the aorta, left-sided AICD Abdomen: Soft, nontender, nondistended, positive bowel sounds x4, obese Extremities: +2 pulses bilaterally radialis/ dorsalis pedis, no cyanosis, no edema Neuro: Awake alert oriented x3 Psych: Normal mood and affect G/U: No Velasquez Skin: no rashes, warm and dry Lymphatic: no cervical or axillary lymphadenopathy Results & Data Results & Data ([facility]) Vital Signs (Past 12 Hours) Vital Signs Temp Pulse Pulse Resp BP Pulse Ox 02/09/21 07:41 90 18 94 02/09/21 06:43 36.8 C 86 19 113/69 94 02/09/21 03:23 36.6 C 85 18 109/71 97 02/09/21 00:11 82 02/09/21 00:10 86 02/08/21 23:24 36.7 C 84 18 102/70 99 02/08/21 22:13 37.1 C 89 16 131/78 99 02/08/21 20:47 83 18 99 Laboratory Results 02/09/21 07:48 PG Care Time/CCT Total # of Minutes Spent Total Time Spent with Patient: Total time spent is greater than 50% in coordination of care (as documented) at patient's floor/unit and/or counseling patient: Coding Level of Care Code 86006 Initial Inpt Care Lvl 3 Diagnoses Influenza A J10.1 COPD (chronic obstructive pulmonary disease) J44.9 Chronic respiratory failure with hypoxia and hypercapnia J96.11; J96.12
[2021-02-09] MEDS ORDERED: OSELTAMIVIR PHOSPHATE 75 MG CAP PO SCH (09:00)
[2021-02-09] MEDS ORDERED: PARoxetine HCL 10 MG TAB PO SCH (09:00)
[2021-02-09] MEDS ORDERED: OSELTAMIVIR PHOSPHATE SUSP 30 MG/5 ML UDP PO SCH (09:00)
[2021-02-09] MEDS ORDERED: dexAMETHasone 6 MG in SYRINGE 0 ML IV SCH (09:00)
[2021-02-09] MEDS: ASPIRIN 81 MG ECTAB PO SCH (09:12)
[2021-02-09] MEDS: CETIRIZINE HCL 10 MG TABLET PO SCH (09:12)
[2021-02-09] MEDS: BACLOFEN 10 MG TAB PO SCH ×2 (09:12→21:53)
[2021-02-09] MEDS: CYANOCOBALAMIN (B-12) 2,500 MCG TABLET SCH (09:13)
[2021-02-09] MEDS: FLUTICASONE/VILANTEROL 100/25MCG 14 PUFFS/INHALER INH SCH (09:13)
[2021-02-09] MEDS: lamoTRIgine 100 MG TAB PO SCH ×2 (09:13→20:35)
[2021-02-09] MEDS: FUROSEMIDE 40 MG TAB PO SCH (09:13)
[2021-02-09] MEDS: CEROVITE ADV FORMULA TAB PO SCH (09:14)
[2021-02-09] MEDS: PANTOprazole 40 MG TAB PO SCH ×2 (09:16→20:37)
[2021-02-09] MEDS: PARoxetine HCl CONTROLLED REL 12.5 MG TABCR PO SCH (09:16)
--- NOTE | 2021-02-09 12:46 | Electrocardiogram Report ---
Test Reason : Blood Pressure : / mmHG Vent. Rate : 096 BPM Atrial Rate : 096 BPM P-R Int : 148 ms QRS Dur : 094 ms QT Int : 372 ms P-R-T Axes : 074 071 030 degrees QTc Int : 469 ms Sinus rhythm with Premature supraventricular complexes and with occasional Premature ventricular comp lexes Low voltage QRS Borderline ECG When compared with ECG of 08-FEB-2021 10:37, Premature supraventricular complexes are now Present Nonspecific T wave abnormality, improved in Inferior leads Confirmed by Malick Barfield ([id number]) on 02/09/2021 12:46:41 PM Referred By: REFERRED SELF Confirmed By:Malick Barfield
[2021-02-09] MEDS: ACETAMINOPHEN 325 MG TAB PO PRN (13:02)
[2021-02-09] MEDS: ADVANCED PROBIOTIC 1250 MG CAPSULE PO SCH (13:03)
--- NOTE | 2021-02-09 16:01 | Hospitalist Progress Note ---
Date of Service February 09, 2021 Assessment & Plan (1) Pneumonia and influenza: Plan: Ms. Keita is an 81 year old female with a history of Asthma, COPD, Chronic Hypoxic and Hypercapnic Respiratory Failure (on chronic supplemental O2 at 4 L/min), CAD s/p AR 2005 s/p 2 Intracoronary Stents followed by CABG x 2 Vessels, Ischemic Cardiomyopathy s/p AICD, Chronic Systolic CHF, Dementia, GERD, Depression, Nodular Goiter, Peripheral Neuropathy, Ulcerative Colitis, Neph rolithiasis, and Paroxysmal Atrial Fibrillation who developed significant shortness of breath, adventitious breath sounds, coughing, and hypoxemia on 01/21/2021. She was subsequently admitted [facility] on 01/25/25 -- but I do not have access to her medical records that hospitalization but this is when she was diagnosed with COVID 19 pneumonia. She was subsequently discharged, but she continued to have SOB, hypoxia, cough, pleuritic chest pain and was subsequently admitted [facility] from 01/29/21 through 02/03/21 with SARS Co-V 2 Pneumonia, tested positive for Influenza, and was diagnosed with Acute on Chronic Hypoxic and Hypercapnic Respiratory Failure. During that hospitalization her troponin level was elevated and she was diagnosed with an NSTEMI. Patient was treated with IV Solu-Medrol, supplemental O2, and Tamiflu. She continued on oral Dexamethasone and Tamiflu x 5 days following discharge (today was her last day of these medications). Patient has continued to cough, is SOB at rest and with exertion, becomes hypoxic with minimal exertion (according to her daughter her SpO2 dropped from the mid 90's into the mid 80's just transferring to her bedside commode today). Her oxygen level would come back up within 5-10 minutes of rest, however over the past couple of days her SpO2 remained in the mid 80s for about 45 to 50 minutes after resting. Today she was struggling very much to catch her breath, so EMS was activated, and she was brought here for further evaluation. Patient was started on CPAP in the ER, her oxygen saturations are staying up in the upper 90's and she is much less short of breath at this point. CTA of the chest shows no evidence of pulmonary embolism. Chest x-ray shows patchy densities in the left base which could represent pneumonia versus atelectasis. She is currently afebrile, but has an elevated WBC count of 13.49 K/uL with a leftward shift. Venous blood gas shows a pCO2 of 65 with a PO2 of 35 and a pH of 7.38. Procalcitonin level is < 0.05ng/ml. Influenza a is positive. SARS-CoV-2 PCR is negative. Improved today, is back to baseline 4LNC and POx 96%--> can wean down -Continue Cefepime and azithro in case of secondary bacterial PNA, Gram neg PNA given recent hospitalizations MRSA swab neg--> no need for MRSA abx coverage -Continue IV Dexamethasone 6 mg daily. -continue DuoNeb nebulizers q.i.d.. -Pulmonology consult appreciated -repeat COVID negative today--> can remove COVID precautions, maintain droplet precautions for Flu -PULM added Tamiflu back but did complete a 5 day course already, could be ext ending the course (2) Chronic respiratory failure with hypoxia and hypercapnia: Plan: with evidence of chronic CO2 retention on VBG requiring CPAP on arrival, now on 4LNC which was her baseline prior to admission, but unclear if this is just since discharge from outside hospital recently (3) COPD (chronic obstructive pulmonary disease): Plan: -- Continue usual inhalers. -- Duoneb nebulizer treatments. -- Continue supplemental O2. (4) CAD (coronary artery disease): Plan: CAD s/p AR 2004 s/p 2 Intracoronary Stents followed by CABG x 2 Vessels. Details not known. -- Continue Atorvastatin 40 mg daily. -- She should be on Aspirin 81 mg daily-started this here -- Troponin I undetectable. (5) Cardiomyopathy: Plan: -- Obtain records from recent hospitalizations, she likely had an echocardiogram when she bumped her troponin I level. -- No evidence of heart failure at this time. -- Continue Lasix 40 mg daily. -- Monitor I&O's. (6) AICD (automatic cardioverter/defibrillator) present: (7) Dementia: Plan: supportive care continue Rivastigmine (8) Chronic systolic CHF (congestive heart failure): Plan: as above (9) Peripheral neuropathy: Plan: not on meds (10) Ulcerative colitis: Plan: not on meds (11) Paroxysmal atrial fibrillation: Plan: in sinus rhythm here maintain tele (12) GERD (gastroesophageal reflux disease): Plan: continue PPI (13) Depression: Plan: continue Paxil, lorazepam Plan: DVT proph-Lovenox Dispo-continued stay PCU,now off COIVD precautions Admission and Anticipated Discharge Date Admission Date: February 08, 2021 Subjective Pt feels much better, asks repeatedly if she can go home and states she has 24/7 caregivers that can help her. She denies SOB. Says she still has some right sided chest pains at times but improved from previous. No other concerns. Tele with NSR, bigem, rates 80-90s Review of Systems Review of Systems: All systems reviewed & are unremarkable except as noted in HPI & below Physical Exam Constitutional: WD/WN, vitals as above Eyes: + anicteric sclerae Neck: trachea midline, no thyromegaly Respiratory: normal respiratory effort; no cough Auscultation: + rhonchi (bilat); no crackles and no wheezes Cardiovascular: RRR, no murmur, no edema Chest (Breasts): Chest: normal inspection of chest Gastrointestinal (Abdomen): normal bowel sounds, soft, nontender, no hepatosplenomegaly Musculoskeletal: Extremities: extremities normal to inspection; no cyanosis and no clubbing Skin: no rashes, warm and dry Neurologic: moves all extremities and awake; no focal motor deficits Psychiatric: Orientation: alert, oriented to person, oriented to place and cooperative Lymphatic: no lymphedema Results & Data Results & Data ([facility]) Vital Signs (Past 12 Hours) Vital Signs Temp Pulse Pulse Resp BP Pulse Ox 02/09/21 15:13 81 22 96 02/09/21 12:35 36.7 C 87 24 109/60 95 02/09/21 10:44 103 H 22 93 02/09/21 08:00 88 02/09/21 07:41 90 18 94 02/09/21 06:43 36.8 C 86 19 113/69 94 Laboratory Results 02/09/21 02/09/21 02/09/21 Range/Units 13:05 07:48 07:48 WBC 12.26 H (4.8-10.8) K/uL RBC 4.03 L (4.2-5.4) M/uL Hgb 11.6 L (12.0-16.0) g/dL Hct 37.2 (37-47) % MCV 92.3 (80-100) fL MCH 28.8 (25-34) pg MCHC 31.2 L (32-36) g/dL RDW Std Deviation 56.4 H (36.4-46.3) fL RDW Coeff of Eric 17.2 H (11.5-14.5) % Plt Count 237 (130-400) K/uL MPV 10.3 (7.4-10.4) fL Immature Gran % (Auto) 0.5 % Neut % (Auto) 81.0 % Lymph % (Auto) 10.8 % [place] % (Auto) 7.4 % Eos % (Auto) 0.2 % Baso % (Auto) 0.1 % Neut # (Auto) 9.92 H (1.4-6.5) K/uL Lymph # (Auto) 1.33 (1.2-3.4) K/uL [place] # (Auto) 0.91 H (0.11-0.59) K/uL Eos # (Auto) 0.03 (0-0.5) K/uL Baso # (Auto) 0.01 (0-0.2) K/uL Immature Gran # (Auto) 0.06 H (0.00-0.02) K/uL Sodium 140 (136-145) mmol/L Potassium 4.3 (3.5-5.1) mmol/L Chloride 102 (98-107) mmol/L Carbon Dioxide 36 H (21-32) mmol/L Anion Gap 2.0 L (3-11) BUN 23 H (7-18) mg/dl Creatinine 0.70 (0.6-1.2) mg/dl Est Cr Clr Drug Dosing 50.1 ml/min Est GFR ( Amer) 92.9 ml/min Est GFR (Non-Af Amer) 80.1 ml/min BUN/Creatinine Ratio 33.1 H (10-20) Glucose 91 (70-99) mg/dl Calcium 9.6 (8.5-10.1) mg/dl Magnesium 2.6 H (1.8-2.4) mg/dl Total Bilirubin (0.2-1) mg/dl Nasal Screen MRSA (PCR) (Negative) SARS-CoV-2, RNA, NAAT NEGATIVE (NEGATIVE) 02/08/21 02/08/21 Range/Units Unknown 11:04 WBC (4.8-10.8) K/uL RBC (4.2-5.4) M/uL Hgb (12.0-16.0) g/dL Hct (37-47) % MCV (80-100) fL MCH (25-34) pg MCHC (32-36) g/dL RDW Std Deviation (36.4-46.3) fL RDW Coeff of Eric (11.5-14.5) % Plt Count (130-400) K/uL MPV (7.4-10.4) fL Immature Gran % (Auto) % Neut % (Auto) % Lymph % (Auto) % [place] % (Auto) % Eos % (Auto) % Baso % (Auto) % Neut # (Auto) (1.4-6.5) K/uL Lymph # (Auto) (1.2-3.4) K/uL [place] # (Auto) (0.11-0.59) K/uL Eos # (Auto) (0-0.5) K/uL Baso # (Auto) (0-0.2) K/uL Immature Gran # (Auto) (0.00-0.02) K/uL Sodium (136-145) mmol/L Potassium (3.5-5.1) mmol/L Chloride (98-107) mmol/L Carbon Dioxide (21-32) mmol/L Anion Gap (3-11) BUN (7-18) mg/dl Creatinine (0.6-1.2) mg/dl Est Cr Clr Drug Dosing ml/min Est GFR ( Amer) ml/min Est GFR (Non-Af Amer) ml/min BUN/Creatinine Ratio (10-20) Glucose (70-99) mg/dl Calcium (8.5-10.1) mg/dl Magnesium (1.8-2.4) mg/dl Total Bilirubin 0.2 (0.2-1) mg/dl Nasal Screen MRSA (PCR) Negative (Negative) SARS-CoV-2, RNA, NAAT (NEGATIVE) PG Care Time/CCT Total # of Minutes Spent Total Time Spent with Patient: Total time spent is greater than 50% in coordination of care (as documented) at patient's floor/unit and/or counseling patient: Coding Level of Care Code 90399 Subseq Hosp Care Lvl 3 Diagnoses Pneumonia and influenza J11.00 Chronic respiratory failure with hypoxia and hypercapnia J96.11; J96.12 COPD (chronic obstructive pulmonary disease) J44.9 CAD (coronary artery disease) I25.10 Cardiomyopathy I42.9 AICD (automatic cardioverter/defibrillator) present Z95.810 Dementia F03.90 Chronic systolic CHF (congestive heart failure) I50.22 Peripheral neuropathy G62.9 Ulcerative colitis K51.90 Paroxysmal atrial fibrillation I48.0 GERD (gastroesophageal reflux disease) K21.9 Depression F32.A
[2021-02-09] MEDS: POTASSIUM CHLORIDE CRTAB 20 MEQ TABCR PO SCH (16:25)
[2021-02-09] MEDS: LORazepam 0.5 MG TAB PO SCH (16:25)
[2021-02-09] MEDS: ATORVASTATIN 40 MG TAB PO SCH (17:13)
[2021-02-09] MEDS: AZITHROMYCIN 500 MG in DEXTROSE 5% 250 ML IV SCH (18:17)
[2021-02-09] MEDS: ENOXAPARIN INJ 30 MG/0.3 ML SYR SQ SCH (20:32)
[2021-02-09] MEDS: QUEtiapine FUMARATE 25 MG TABLET PO SCH (20:36)
[2021-02-09] MEDS: ZOLPIDEM TARTRATE 5 MG TAB PO PRN (20:36)
[2021-02-09] MEDS: DOCUSATE SODIUM/SENNA 50/8.6MG TAB PO SCH (21:53)
[2021-02-10] MEDS: ALBUT/IPRATROP 3MG/0.5MG NEB 3 ML VIAL NEB SCH ×4 (07:19→20:08)
[2021-02-10 08:12] LABS: Eosinophils # (auto) 0.01 K/uL (0-0.5); Eosinophils % (auto) 0.1 %; Hematocrit (blood only) 35.4 % (37-47); Hemoglobin 11.1 g/dL (12.0-16.0); Immature Granulocytes # (auto) 0.04 K/uL (0.00-0.02); Immature Granulocytes % (auto) 0.4 %; Lymphocytes # (auto) 1.03 K/uL (1.2-3.4); Lymphocytes % (auto) 9.2 %; Mean Corpuscular Hemoglobin 28.9 pg (25-34); Mean Corpuscular Hgb Conc 31.4 g/dL (32-36); Mean Corpuscular Volume 92.2 fL (80-100); Mean Platelet Volume 10.3 fL (7.4-10.4); Monocytes # (auto) 0.66 K/uL (0.11-0.59); Monocytes % (auto) 5.9 %; Neutrophils # (auto) 9.45 K/uL (1.4-6.5); Neutrophils % (auto) 84.4 %; Platelet Count 192 K/uL (130-400); RDW Coefficient of Variation 17.4 % (11.5-14.5); RDW Standard Deviation 56.4 fL (36.4-46.3); Red Blood Count 3.84 M/uL (4.2-5.4); White Blood Count 11.19 K/uL (4.8-10.8)
[2021-02-10] MEDS: FLUTICASONE/VILANTEROL 100/25MCG 14 PUFFS/INHALER INH SCH (08:34)
[2021-02-10] MEDS: ASPIRIN 81 MG ECTAB PO SCH (08:35)
[2021-02-10] MEDS: PANTOprazole 40 MG TAB PO SCH ×2 (08:36→20:01)
[2021-02-10] MEDS: FUROSEMIDE 40 MG TAB PO SCH (08:36)
[2021-02-10] MEDS: CETIRIZINE HCL 10 MG TABLET PO SCH (08:36)
[2021-02-10] MEDS: PARoxetine HCl CONTROLLED REL 12.5 MG TABCR PO SCH (08:36)
[2021-02-10] MEDS: lamoTRIgine 100 MG TAB PO SCH ×2 (08:36→20:01)
[2021-02-10] MEDS: BACLOFEN 10 MG TAB PO SCH ×2 (08:36→20:00)
[2021-02-10] MEDS: CEROVITE ADV FORMULA TAB PO SCH (08:36)
[2021-02-10] MEDS: CYANOCOBALAMIN (B-12) 2,500 MCG TABLET SCH (08:36)
[2021-02-10] MEDS: UMECLIDINIUM BROMIDE 62.5MCG/BLISTER 7 PUFFS/INHALER INH SCH (08:41)
[2021-02-10] MEDS: ACETAMINOPHEN 325 MG TAB PO PRN (08:41)
[2021-02-10 08:46] LABS: BUN Creatinine Ratio 27.3 (10-20); Calcium 9.1 mg/dl (8.5-10.1); Creatinine Clr Calc Pharmacy 49.4 ml/min; Est GFR (African American) 91.3 ml/min; Est GFR (Non-African American) 78.8 ml/min; Magnesium 2.2 mg/dl (1.8-2.4); Potassium 3.7 mmol/L (3.5-5.1)
[2021-02-10] MEDS: ADVANCED PROBIOTIC 1250 MG CAPSULE PO SCH (11:15)
[2021-02-10] MEDS ORDERED: FUROSEMIDE INJ 20 MG/2 ML VIAL IV ONE (13:30)
--- NOTE | 2021-02-10 15:56 | Hospitalist Progress Note ---
Date of Service February 10, 2021 Assessment & Plan (1) Pneumonia and influenza: Plan: Ms. Keita is an 81 year old female with a history of Asthma, COPD, Chronic Hypoxic and Hypercapnic Respiratory Failure (on chronic supplemental O2 at 4 L/min), CAD s/p [place] 2005 s/p 2 Intracoronary Stents followed by CABG x 2 Vessels, Ischemic Cardiomyopathy s/p AICD, Chronic Systolic CHF, Dementia, GERD, Depression, Nodular Goiter, Peripheral Neuropathy, Ulcerative Colitis, Neph rolithiasis, and Paroxysmal Atrial Fibrillation who developed significant shortness of breath, adventitious breath sounds, coughing, and hypoxemia on 01/21/2021. She was subsequently admitted [facility] on 01/25/25 -- but I do not have access to her medical records that hospitalization but this is when she was diagnosed with COVID 19 pneumonia. She was subsequently discharged, but she continued to have SOB, hypoxia, cough, pleuritic chest pain and was subsequently admitted [facility] from 01/29/21 through 02/03/21 with SARS Co-V 2 Pneumonia, tested positive for Influenza, and was diagnosed with Acute on Chronic Hypoxic and Hypercapnic Respiratory Failure. During that hospitalization her troponin level was elevated and she was diagnosed with an NSTEMI. Patient was treated with IV Solu-Medrol, supplemental O2, and Tamiflu. She continued on oral Dexamethasone and Tamiflu x 5 days following discharge. Patient has continued to cough, is SOB at rest and with exertion, becomes hypoxic with minimal exertion (according to her daughter her SpO2 dropped from the mid 90's into the mid 80's just transferring to her bedside commode). Her oxygen level would come back up within 5-10 minutes of rest, however over the past couple of days her SpO2 remained in the mid 80s for about 45 to 50 minutes after resting. Today she was struggling very much to catch her breath, so EMS was activated, and she was brought here for further evaluation. Patient was started on CPAP in the ER, her oxygen saturations are staying up in the upper 90's and she is much less short of breath at this point. CTA of the chest shows no evidence of pulmonary embolism and no pneumonia. Chest x-ray shows patchy densities in the left base which could represent pneumonia versus atelectasis. She is currently afebrile, but has an elevated WBC count of 13.49 K/uL with a leftward shift. Venous blood gas shows a pCO2 of 65 with a PO2 of 35 and a pH of 7.38. Procalcitonin level is < 0.05ng/ml. Influenza A is positive. SARS-CoV-2 PCR is negative. Patient is significantly improved since admission, is back to baseline 4LNC and POx 96%--> did wean down to 2 L earlier on 02/10, but may need increased amounts of oxygen with exertion When working with physical therapy, her pulse ox did increase to 96% when she took 2 steps to the bedside chair Daughter's biggest concern is that she needs reassessment of the O2 requirement prior to discharge-I will order a two-step for tomorrow which will hopefully be the day of discharge She still has a lot of wheezing and some rhonchi throughout. Seen by pulmonology-does not feel that antibiotics for pneumonia are necessary- cefepime was discontinued and azithromycin to only be continued for total of 3 days She completed a 10-day course of steroids on 02/09 and none further recommended She completed a 5-day course of Tamiflu prior to admission -continue DuoNeb nebulizers q.i.d.. Her repeat COVID-19 test here was negative and infection control instructed that she could be removed from COVID precautions, but should maintain droplet precautions for Flu The patient's daughter did not feel the patient was ready for discharge on 02/10 which is understandable given that this is her third admission in 2 weeks to the hospital -Two-step walk test in the morning, hopeful for discharge to home on 02/11 (2) Chronic respiratory failure with hypoxia and hypercapnia: Plan: with evidence of chronic CO2 retention on VBG requiring CPAP on arrival, now on 4LNC which was her baseline prior to ad mission, but unclear if this is just since discharge from outside hospital recently Check two-step walk test prior to discharge to reassess O2 need (3) COPD (chronic obstructive pulmonary disease): Plan: -- Continue usual inhalers. -- Duoneb nebulizer treatments. -- Continue supplemental O2. (4) CAD (coronary artery disease): Plan: CAD s/p AR 2004 s/p 2 Intracoronary Stents followed by CABG x 2 Vessels. Details not known. -- Continue Atorvastatin 40 mg daily. -- She should be on Aspirin 81 mg daily-started this here -- Troponin I undetectable. (5) Cardiomyopathy: Plan: -No records for review -- No evidence of heart failure at this time. -- Continue Lasix 40 mg daily. -- Monitor I&O's. (6) AICD (automatic cardioverter/defibrillator) present: Plan: Noted (7) Dementia: Plan: supportive care continue Rivastigmine (8) Chronic systolic CHF (congestive heart failure): Plan: as above (9) Peripheral neuropathy: Plan: not on meds (10) Ulcerative colitis: Plan: not on meds (11) Paroxysmal atrial fibrillation: Plan: in sinus rhythm here maintain tele (12) GERD (gastroesophageal reflux disease): Plan: continue PPI (13) Depression: Plan: continue Paxil, lorazepam Plan: DVT proph-Lovenox Dispo-continued stay PCU, hopeful for discharge to home on 02/11. She has 12 hours of caretakers every day and her daughter stays with her overnight, therefore she has 28/08 care and family not interested in her going to SNF Admission and Anticipated Discharge Date Admission Date: February 08, 2021 Subjective Patient reports she is feeling much better. And she repeatedly requests that I talk to her daughter to see if she will take her home today. I did discuss her care with her daughter and her concern was that her oxygen levels were dropping as soon as she would stand up to transfer to the bedside chair at home. The daughter would like to see how she does with physical therapy and what her oxygen levels do to ensure that this will not happen again when she goes home. Otherwise the patient is somewhat pleasantly confused and has no other concerns. Telemetry with normal sinus rhythm and sinus tachycardia with rates in the 80s to 110s. Review of Systems Review of Systems: All systems reviewed & are unremarkable except as noted in HPI & below Physical Exam Constitutional: WD/WN, vitals as above Constantly makes a humming sound when she is not speaking Eyes: + anicteric sclerae Neck: trachea midline, no thyromegaly Respiratory: normal respiratory effort; no cough Auscultation: + rhonchi (bilat) and + wheezes (Bilateral, diffuse); no crackles Cardiovascular: RRR, no murmur, no edema Chest (Breasts): Chest: normal inspection of chest Gastrointestinal (Abdomen): normal bowel sounds, soft, nontender, no hepatosplenomegaly Musculoskeletal: Extremities: extremities normal to inspection; no cyanosis and no clubbing Skin: no rashes, warm and dry Neurologic: moves all extremities and awake; no focal motor deficits Psychiatric: Orientation: alert, oriented to person, oriented to place and cooperative Lymphatic: no lymphedema Results & Data Results & Data ([facility]) Vital Signs (Past 12 Hours) Vital Signs Temp Pulse Pulse Resp BP Pulse Ox 02/10/21 15:29 106 H 20 92 02/10/21 13:53 93 02/10/21 12:24 36.8 C 98 H 20 103/68 95 02/10/21 10:36 76 18 93 02/10/21 08:02 36.8 C 103 H 20 109/69 95 02/10/21 07:19 103 H 20 92 02/10/21 07:07 103 H 02/10/21 04:15 36.8 C 109 H 20 147/89 H 92 Laboratory Results 02/10/21 02/10/21 Range/Units 07:52 07:52 WBC 11.19 H (4.8-10.8) K/uL RBC 3.84 L (4.2-5.4) M/uL Hgb 11.1 L (12.0-16.0) g/dL Hct 35.4 L (37-47) % MCV 92.2 (80-100) fL MCH 28.9 (25-34) pg MCHC 31.4 L (32-36) g/dL RDW Std Deviation 56.4 H (36.4-46.3) fL RDW Coeff of Eric 17.4 H (11.5-14.5) % Plt Count 192 (130-400) K/uL MPV 10.3 (7.4-10.4) fL Immature Gran % (Auto) 0.4 % Neut % (Auto) 84.4 % Lymph % (Auto) 9.2 % [place] % (Auto) 5.9 % Eos % (Auto) 0.1 % Baso % (Auto) 0.0 % Neut # (Auto) 9.45 H (1.4-6.5) K/uL Lymph # (Auto) 1.03 L (1.2-3.4) K/uL [place] # (Auto) 0.66 H (0.11-0.59) K/uL Eos # (Auto) 0.01 (0-0.5) K/uL Baso # (Auto) 0.00 (0-0.2) K/uL Immature Gran # (Auto) 0.04 H (0.00-0.02) K/uL Sodium 138 (136-145) mmol/L Potassium 3.7 (3.5-5.1) mmol/L Chloride 100 (98-107) mmol/L Carbon Dioxide 34 H (21-32) mmol/L Anion Gap 3.0 (3-11) BUN 19 H (7-18) mg/dl Creatinine 0.71 (0.6-1.2) mg/dl Est Cr Clr Drug Dosing 49.4 ml/min Est GFR ( Amer) 91.3 ml/min Est GFR (Non-Af Amer) 78.8 ml/min BUN/Creatinine Ratio 27.3 H (10-20) Glucose 91 (70-99) mg/dl Calcium 9.1 (8.5-10.1) mg/dl Magnesium 2.2 (1.8-2.4) mg/dl PG Care Time/CCT Total # of Minutes Spent Total Time Spent with Patient: Total time spent is greater than 50% in coordination of care (as documented) at patient's floor/unit and/or counseling patient: Coding Level of Care Code 80384 Subseq Hosp Care Lvl 3 Diagnoses Pneumonia and influenza J11.00 Chronic respiratory failure with hypoxia and hypercapnia J96.11; J96.12 COPD (chronic obstructive pulmonary disease) J44.9 CAD (coronary artery disease) I25.10 Cardiomyopathy I42.9 AICD (automatic cardioverter/defibrillator) present Z95.810 Dementia F03.90 Chronic systolic CHF (congestive heart failure) I50.22 Peripheral neuropathy G62.9 Ulcerative colitis K51.90 Paroxysmal atrial fibrillation I48.0 GERD (gastroesophageal reflux disease) K21.9 Depression F32.A
[2021-02-10] MEDS: LORazepam 0.5 MG TAB PO SCH (16:30)
[2021-02-10] MEDS: ATORVASTATIN 40 MG TAB PO SCH (16:30)
[2021-02-10] MEDS: POTASSIUM CHLORIDE CRTAB 20 MEQ TABCR PO SCH (16:31)
[2021-02-10] MEDS: AZITHROMYCIN 500 MG in DEXTROSE 5% 250 ML IV SCH (18:30)
[2021-02-10] MEDS: ENOXAPARIN INJ 30 MG/0.3 ML SYR SQ SCH (19:58)
[2021-02-10] MEDS: ZOLPIDEM TARTRATE 5 MG TAB PO PRN (20:00)
[2021-02-10] MEDS: DOCUSATE SODIUM/SENNA 50/8.6MG TAB PO SCH (20:00)
[2021-02-10] MEDS: QUEtiapine FUMARATE 25 MG TABLET PO SCH (20:02)
[2021-02-11 07:08] LABS: Eosinophils # (auto) 0.05 K/uL (0-0.5); Eosinophils % (auto) 0.5 %; Hematocrit (blood only) 35.5 % (37-47); Hemoglobin 11.3 g/dL (12.0-16.0); Immature Granulocytes # (auto) 0.05 K/uL (0.00-0.02); Immature Granulocytes % (auto) 0.5 %; Lymphocytes # (auto) 1.01 K/uL (1.2-3.4); Lymphocytes % (auto) 10.6 %; Mean Corpuscular Hgb Conc 31.8 g/dL (32-36); Mean Corpuscular Volume 91.3 fL (80-100); Mean Platelet Volume 10.2 fL (7.4-10.4); Monocytes % (auto) 6.3 %; Neutrophils % (auto) 82.1 %; Platelet Count 180 K/uL (130-400); RDW Coefficient of Variation 16.7 % (11.5-14.5); Red Blood Count 3.89 M/uL (4.2-5.4); White Blood Count 9.51 K/uL (4.8-10.8)
[2021-02-11] MEDS: ALBUT/IPRATROP 3MG/0.5MG NEB 3 ML VIAL NEB SCH ×2 (07:08→10:55)
[2021-02-11 07:36] LABS: Calcium 9.1 mg/dl (8.5-10.1); Creatinine Clr Calc Pharmacy 49.3 ml/min; Est GFR (African American) 91.3 ml/min; Est GFR (Non-African American) 78.8 ml/min; Potassium 3.6 mmol/L (3.5-5.1)
[2021-02-11] MEDS: BACLOFEN 10 MG TAB PO SCH (08:17)
[2021-02-11] MEDS: CETIRIZINE HCL 10 MG TABLET PO SCH (08:18)
[2021-02-11] MEDS: PANTOprazole 40 MG TAB PO SCH (08:18)
[2021-02-11] MEDS: lamoTRIgine 100 MG TAB PO SCH (08:18)
[2021-02-11] MEDS: ASPIRIN 81 MG ECTAB PO SCH (08:18)
[2021-02-11] MEDS: CYANOCOBALAMIN (B-12) 2,500 MCG TABLET SCH (08:18)
[2021-02-11] MEDS: FLUTICASONE/VILANTEROL 100/25MCG 14 PUFFS/INHALER INH SCH (08:19)
[2021-02-11] MEDS: PARoxetine HCl CONTROLLED REL 12.5 MG TABCR PO SCH (08:19)
[2021-02-11] MEDS: CEROVITE ADV FORMULA TAB PO SCH (08:19)
[2021-02-11] MEDS: UMECLIDINIUM BROMIDE 62.5MCG/BLISTER 7 PUFFS/INHALER INH SCH (08:19)
[2021-02-11] MEDS: FUROSEMIDE 40 MG TAB PO SCH (08:20)
--- NOTE | 2021-02-11 11:45 | Discharge Summary ---
Date of Service February 11, 2021 Admission HPI Per Admitting Provider Ms. Keita is an 81 year old female with a history of Asthma, COPD, Chronic Hypoxic and Hypercapnic Respiratory Failure (on chronic supplemental O2 at 4 L/min), CAD s/p [place] 2005 s/p 2 Intracoronary Stents followed by CABG x 2 Vessels, Ischemic Cardiomyopathy s/p AICD, Chronic Systolic CHF, Dementia, GERD, Depression, Nodular Goiter, Peripheral Neuropathy, Ulcerative Colitis, Nephrolithiasis, and Paroxysmal Atrial Fibrillation who developed significant shortness of breath, adventitious breath sounds, coughing, and hypoxemia on 01/21/2021. She was subsequently admitted [facility] on 01/25/25 -- but I do not have access to her medical records that hospitalization. She continued to have SOB, hypoxia, cough, pleuritic chest pain and was subsequently admitted [facility] from 01/29/21 through 02/03/21 with SARS Co-V 2 Pneumonia, tested positive for Influenza, and was diagnosed with Acute on Chronic Hypoxic and Hypercapnic Respiratory Failure. During that hospitalization her troponin level was elevated and she was diagnosed with an NSTEMI. Patient was treated with IV Solu-Medrol, supplemental O2, and Tamiflu. She continued on oral Dexamethasone and Tamiflu x 5 days following discharge (today was her last day of these medications). Patient has continued to cough, is SOB at rest and with exertion, becomes hypoxic with minimal exertion (according to her daughter her SpO2 dropped from the mid 90's into the mid 80's). Typically her oxygen level would come back up within 5-10 minutes of rest, however over the past couple of days her SpO2 remained in the mid 80s for about 45 to 50 minutes after resting. Today she was struggling very much to catch her breath, so EMS was activated, and she was brought here for further evaluation. Patient was started on CPAP in the ER, her oxygen saturations are staying up in the upper 90's and she is much less short of breath at this point. Patient denies any fevers, chills, headache, stiff neck. She does admit to pleuritic right anterior chest pain, but has not had any anginal discomfort. She denies any nausea, vomiting, or diaphoresis. She has not been coughing up sputum but she has been wheezing a lot. She denies any hemoptysis. Principal Diagnosis Acute on chronic hypoxic respiratory failure Discharge Exam General: well developed, well nourished, elderly female, confused but cooperative, no distress Neck: supple, trachea midline, normal thyroid Lungs: clear to auscultation bilaterally, normal respiratory effort, no accessory muscle use, no distress Heart: regular S1 and S2, no murmur, peripheral pulses normal, capillary refill normal, no edema Abdomen: soft, NT, ND, + BS, no hepatomegaly, normal to percussion Extremities: normal in appearance, no cyanosis, no petechiae, strength is 5/5 bilaterally Neuro: awake, cooperative, moves all extremities, no focal motor deficits, CN II-XII intact Skin: warm, dry, no rash, normal turgor Psych: Awake, oriented to person but not place or time Discharge Data Allergies Allergy/AdvReac Type Severity Reaction Status Date / Time No Known Allergies Allergy Verified 02/08/21 12:09 Consultations 02/08/21 12:25 ED Decision to Admit Stat 02/08/21 17:37 Consult Pulmonology Routine Ordered Studies 02/08/21 12:46 CT angio chest PE protocol Stat Hospital Course (1) Pneumonia and influenza: Ms. Keita is an 81 year old female with a history of Asthma, COPD, Chronic Hypoxic and Hypercapnic Respiratory Failure (on chronic supplemental O2 at 4 L/min), CAD s/p [place] 2005 s/p 2 Intracoronary Stents followed by CABG x 2 Vessels, Ischemic Cardiomyopathy s/p AICD, Chronic Systolic CHF, Dementia, GERD, Depression, Nodular Goiter, Peripheral Neuropathy, Ulcerative Colitis, Nephrolithiasis, and Paroxysmal Atrial Fibrillation who developed significant shortness of breath, adventitious breath sounds, coughing, and hypoxemia on 01/21/2021. She was subsequently admitted [facility] on 01/25/25 -- but I do not have access to her medical records that hospitalization but this is when she was diagnosed with COVID 19 pneumonia. She was subsequently discharged, but she continued to have SOB, hypoxia, cough, pleuritic chest pain and was subsequently admitted [facility] from 01/29/21 through 02/03/21 with SARS Co-V 2 Pneumonia, tested positive for Influenza, and was diagnosed with Acute on Chronic Hypoxic and Hypercapnic Respiratory Failure. During that hospitalization her troponin level was elevated and she was diagnosed with an NSTEMI. Patient was treated with IV Solu-Medrol, supplemental O2, and Tamiflu. She continued on oral Dexamethasone and Tamiflu x 5 days following discharge. Patient has continued to cough, is SOB at rest and with exertion, becomes hypoxic with minimal exertion (according to her daughter her SpO2 dropped from the mid 90's into the mid 80's just transferring to her bedside commode). Her oxygen level would come back up within 5-10 minutes of rest, however over the past couple of days her SpO2 remained in the mid 80s for about 45 to 50 minutes after resting. Today she was struggling very much to catch her breath, so EMS was activated, and she was brought here for further evaluation. Patient was started on CPAP in the ER, her oxygen saturations are staying up in the upper 90's and she is much less short of breath at this point. CTA of the chest shows no evidence of pulmonary embolism and no pneumonia. Chest x-ray shows patchy densities in the left base which could represent pneumonia versus atelectasis. She is currently afebrile, but has an elevated WBC count of 13.49 K/uL with a leftward shift. Venous blood gas shows a pCO2 of 65 with a PO2 of 35 and a pH of 7.38. Procalcitonin level is < 0.05ng/ml. Influenza A is positive. SARS-CoV-2 PCR is negative. lungs are clearing up on day of discharge she was evaluated by pulmonology-does not feel that antibiotics for pneumonia are necessary-cefepime was discontinued and azithromycin to only be continued for total of 3 days She completed a 10-day course of steroids on 02/09 and none further recommended She completed a 5-day course of Tamiflu prior to admission -continue DuoNeb nebulizers q.i.d.. Her repeat COVID-19 test here was negative and infection control instructed that she could be removed from COVID precautions, but should maintain droplet precautions for Flu 2 step on the day of discharge shows that she needs no oxygen at rest but needed 2L on exertion arranged for home oxygen and daughter took her home (2) Chronic respiratory failure with hypoxia and hypercapnia: with evidence of chronic CO2 retention on VBG 2 step: only needed 2L on exertion (3) COPD (chronic obstructive pulmonary disease): -- Continue usual inhalers. -- Duoneb nebulizer treatments. -- Continue supplemental O2. (4) CAD (coronary artery disease): CAD s/p [place] 2004 s/p 2 Intracoronary Stents followed by CABG x 2 Vessels. Details not known. -- Continue Atorvastatin 40 mg daily. -- She should be on Aspirin 81 mg daily-started this here -- Troponin I undetectable. (5) Cardiomyopathy: -No records for review -- No evidence of heart failure at this time. -- Continue Lasix 40 mg daily. -- Monitor I&O's. (6) AICD (automatic cardioverter/defibrillator) present: Noted (7) Dementia: supportive care continue Rivastigmine (8) Chronic systolic CHF (congestive heart failure): as above (9) Peripheral neuropathy: not on meds (10) Ulcerative colitis: not on meds (11) Paroxysmal atrial fibrillation: in sinus rhythm here maintain tele (12) GERD (gastroesophageal reflux disease): continue PPI (13) Depression: continue Paxil, lorazepam DVT proph-Lovenox Total Time Total Time Spent Total Time Spent (In Minutes): 33 minutes Total Time Includes: Examination of the Patient, Discharge Planning, Medication Reconciliation and Other (discussion with her daughter) Discharge Plan Discharge Items Patient Disposition: Home - Home Health Services Reason For Visit: PNEUMONIA, INFLUENZA A, RECENT COVID, COPD Discharge Diagnosis: Acute on chronic hypoxic respiratory failure Influenza A Recent COVID 19 infection Condition on Discharge: Good Goals: stay well nourished, well rested gradually increase activity, improve strength Activity: Resume your previous activity Weightbearing: Full weightbearing Non-emergency contact: Primary Care Provider Call non-emergency contact if: you have any medication questions and your symptoms worsen Follow-up/Referrals: Bony Guerrero M.D. [Primary Care Provider] - 02/17/21 2:45 pm (Please follow up with Dr. Guerrero on 02/17/21 at 2:45 pm. Please arrive to the office at 2:30 pm for your appointment. If you are unable to keep this appointment, please call the office to reschedule at [phone].) Diet: Regular Addtl Attending Provider Instructions: Medications: no changes to prior medications Acute on chronic hypoxic respiratory failure: unclear etiology, responded quickly to CPAP then down to 4L, now down to room air at rest 2 step oxygen test on day of discharge shows saturations 93% at rest, went down to 86% on exertion, placed on 2L and rebounded above 90% so you need 2L on exertion only adequately treated for COVID, influenza, no concerns for bacterial infection (antibiotics stopped) no evidence of acute heart failure on imaging continue with therapy at home, continue to encourage adequate nutrition, improve strength Pending Studies at Discharge: No Stand-Alone Forms: My [facility] Help/Systems, Smoking Cessation Medications and DC Order Prescriptions: Continued furosemide 40 mg tablet 40 mg PO QAM RF: 0 atorvastatin 40 mg tablet 40 mg PO DAILY@1500 RF: 0 cetirizine 10 mg tablet 10 mg PO QAM RF: 0 sennosides-docusate sodium [Stool Softener-Laxative] 8.6-50 mg tablet 1 tab PO HS RF: 0 potassium chloride 20 mEq tablet,ER particles/crystals 20 meq PO DAILY@1500 RF: 0 lorazepam 0.5 mg tablet 0.5 mg PO DAILY@1500 RF: 0 oxycodone-acetaminophen 10-325 mg tablet 1 tab PO QID PRN (Reason: Pain) RF: 0 biotin 10,000 mcg capsule 10,000 mcg PO DAILY RF: 0 omeprazole 20 mg capsule,delayed release(DR/EC) 20 mg PO BID RF: 0 lamotrigine 100 mg tablet 100 mg PO AMHS RF: 0 rivastigmine 9.5 mg/24 hr patch 24 hour 1 patch transdermal DAILY RF: 0 cyanocobalamin (vitamin B-12) [Vitamin B-12] 5,000 mcg tablet, sublingual 5,000 mcg PO QAM RF: 0 Movantik 25 mg tablet 25 mg PO QAM RF: 0 One-A-Day Proactive 65 Plus 200 mcg tablet 1 tab PO DAILY RF: 0 Daily Probiotic (10 Strains) 4 billion cell capsule 1 cap PO DAILY@1200 RF: 0 quetiapine 25 mg tablet 50 mg PO HS RF: 0 baclofen 10 mg tablet 10 mg PO BID RF: 0 fluticasone propionate 50 mcg/actuation spray,suspension 2 spray INTRANASAL DAILY PRN (Reason: Congestion) RF: 0 paroxetine HCl 37.5 mg tablet extended release 24 hr 37.5 mg PO DAILY RF: 0 Breo Ellipta 100-25 mcg/dose blister with device 1 inh INHALATION DAILY RF: 0 Discharge Orders: Discharge Order (Routine); Ordered 02/11/21 Ordered By: Gerald Kulkarni Admission Data Admit Date/Time: 02/08/21 14:14 Attending Provider: Gerald Kulkarni Admit Provider: Sumi Jaffe Primary Care Provider: Bony Guerrero Other Providers: Sumi Jaffe ; Carmelita Landers ; [facility] ; [facility] Other Interventions: Discharge Summary Assessment (RN) Last Done: 02/11/21 13:54 Coding Level of Care Code D/C DAY MANAGEMENT >30 MINS Diagnoses Pneumonia and influenza J11.00 Chronic respiratory failure with hypoxia and hypercapnia J96.11; J96.12 COPD (chronic obstructive pulmonary disease) J44.9 CAD (coronary artery disease) I25.10 Cardiomyopathy I42.9 AICD (automatic cardioverter/defibrillator) present Z95.810 Dementia F03.90 Chronic systolic CHF (congestive heart failure) I50.22 Peripheral neuropathy G62.9 Ulcerative colitis K51.90 Paroxysmal atrial fibrillation I48.0 GERD (gastroesophageal reflux disease) K21.9 Depression F32.A
[2021-02-11] MEDS: ADVANCED PROBIOTIC 1250 MG CAPSULE PO SCH (12:25)
--- NOTE | 2021-02-28 07:14 | Coding Query ---
CODING QUERY To promote full compliance with coding requirements relating to patient care, provider participation is requested in all cases of focuser uncertainty. Please assist us with the question(s) below: Coding Question(s): Pt with recent prior adm for covid pneumonia and influenza A. Admitted with acute/chronic resp failure with hypoxia/hypercarbia. Pulmonary consult- antibiotics discontinued. CTA/Chest showed no pneumonia. Please check below the phrase that describes the pneumonia.Thanks for your help. Zach Mcwilliams [facility] Physician's Response(s): Patient admitted/treated for pneumonia Patient did not have pneumonia Cannot clinically correlate if paitent had pneumonia Other: Please document: Principal Diagnosis: "that condition established after study, to be chiefly responsible for occasioning the admission of the patient to the hospital for care." Co-Existing Principal Diagnosis: "when two or more diagnoses equally meet the criteria for principal diagnosis as determined by the circumstances of admission, diagnostic work up, and/or therapy provided, and the Alphabetic Index, Tabular List, or another coding guideline does not provide sequencing direction, any one of the diagnoses may be sequenced first." "When the physician has documented what appears to be a current diagnosis in the body of the record, but has not included the diagnosis in the final diagnostic statement, the physician should be asked whether the diagnosis should be added." (Source Coding [facility] 2 QTR90. p3-4) RANDY
== END 2021-02-11 15:00 | disposition home health service (06) | DRG 193 ==
LOC: ED 10:16 → SUATTDRO 14:14 → EDINP 14:14 → 2S 17:43

== ENCOUNTER 2021-02-27 08:09 | Inpatient (IN) ==
--- NOTE | 2021-02-27 08:25 | Emergency Department Note ---
History of Present Illness General Chief complaint: Fall Stated complaint: FALL, CONFUSION, NECK & BACK PAIN Time Seen by Provider: 02/27/21 08:14 Source: patient, family, EMS, RN notes reviewed and old records reviewed Mode of arrival: EMS Limitations: no limitations History of Present Illness Maximum Pain Intensity: 2 This patient was brought in by EMS after apparently falling out of her bed. She does wear oxygen and they said there was a brand advisor nearby and they think she was smoking in bed but took the oxygen off when they arrived she did not have her oxygen on and was on the floor. He is carpeted she has been having back pain the patient tells me she did not actually fall she says her back pain preexisted this she is also has neck pain so they brought her in. The paramedics do know her well they said they been out to her house multiple times for falls and issues. She does have some mild dementia and has some help during the day but nobody at night. Patient has chronic shortness of breath which is unchanged. No new numbness weakness. no fever or chills. She has been vaccinated against COVID. Denies chest pain or headache or head trauma. The paramedics did not note any injuries. Her neck and back pain she feels are chronic and predated her fall Home Medications Medication Instructions Recorded Confirmed Type Lactobac 51-Bifidobac 1 cap PO DAILY@1200 03/28/20 02/27/21 History 3-L.lactis-S.thermophilus 4 billion cell capsule (Daily Probiotic (10 Strains)) atorvastatin 40 mg tablet 40 mg PO DAILY@1500 03/28/20 02/27/21 History biotin 10,000 mcg capsule 10,000 mcg PO DAILY 03/28/20 02/27/21 History cetirizine 10 mg tablet 10 mg PO QAM 03/28/20 02/27/21 History cyanocobalamin (vitamin B-12) 5,000 mcg PO QAM 03/28/20 02/27/21 History 5,000 mcg sublingual tablet (Vitamin B-12) furosemide 40 mg tablet 40 mg PO QAM 03/28/20 02/27/21 History lamotrigine 100 mg tablet 100 mg PO AMHS 03/28/20 02/27/21 History lorazepam 0.5 mg tablet 0.5 mg PO DAILY@1500 03/28/20 02/27/21 History multivitamin with calcium and 1 tab PO DAILY 03/28/20 02/27/21 History minerals-folic acid 200 mcg tablet (One-A-Day Proactive 65 Plus) naloxegol 25 mg tablet (Movantik) 25 mg PO QAM 03/28/20 02/27/21 History omeprazole 20 mg capsule,delayed 20 mg PO BID 03/28/20 02/27/21 History release oxycodone-acetaminophen 10 mg-325 1 tab PO QID PRN 03/28/20 02/27/21 History mg tablet potassium chloride 20 mEq 20 meq PO DAILY@1500 03/28/20 02/27/21 History tablet,extended release(part/cryst) rivastigmine 1 patch TRANSDERMAL DAILY 03/28/20 02/27/21 History sennosides 8.6 mg-docusate sodium 1 tab PO HS 03/28/20 02/27/21 History 50 mg tablet (Stool Softener-Laxative) baclofen 10 mg tablet 10 mg PO BID 02/08/21 02/27/21 History fluticasone furoate 100 1 inh INHALATION DAILY 02/08/21 02/27/21 History mcg-vilanterol 25 mcg/dose inhalation powder (Breo Ellipta) fluticasone propionate 50 2 spray INTRANASAL DAILY PRN 02/08/21 02/27/21 History mcg/actuation nasal spray,suspension paroxetine HCl 37.5 mg 37.5 mg PO DAILY 02/08/21 02/27/21 History tablet,extended release 24 hr quetiapine 25 mg tablet 50 mg PO HS 02/08/21 02/27/21 History sucralfate 1 gram tablet 1 g PO TID 02/27/21 02/27/21 History Allergies Allergy/AdvReac Type Severity Reaction Status Date / Time No Known Allergies Allergy Verified 02/08/21 12:09 Past Med/Surg History Medical History Arthritis Chronic back pain Chronic systolic CHF (congestive heart failure) Dementia Depression GERD (gastroesophageal reflux disease) Goiter, nodular Hypokalemia Myocardial infarction Nephrolithiasis Paroxysmal atrial fibrillation Peripheral neuropathy Ulcerative colitis UTI (urinary tract infection) Surgical History AICD (automatic cardioverter/defibrillator) present Hx of cholecystectomy Social History Smoking Status: Current every day smoker Tobacco Type: Cigarettes Hx Alcohol Use: No Hx Substance Use: No Communication Ability: Impaired Current Living Situation: Family current occupational status: retired Feels Safe at Home: Yes Assistive Devices: Oxygen - Continuous Review of Systems A total of 10 systems reviewed and were otherwise negative Physical Exam Vital Signs Vital Signs - 24 hr 02/27/21 08:10 02/27/21 08:19 02/27/21 08:20 Temperature 36.6 C 36.6 C Temperature Source Oral Oral Pulse Rate 101 H Pulse Rate [Finger] 98 H Respiratory Rate 22 24 Blood Pressure 108/77 Blood Pressure [Left Arm] 108/77 Blood Pressure Mean 87 Blood Pressure Mean [Left Arm] 87 Blood Pressure Position Lying Blood Pressure Position [Left Arm] Lying Pulse Oximetry 100 100 100 Oxygen Delivery Method Nasal Cannula Nasal Cannula Nasal Cannula Oxygen Flow Rate 3 3 3 Sepsis Recent Fever Within 48 Hours No Sepsis New/Unexplained Change in Mental Status No Sepsis Action Taken by Nursing No Action Required 02/27/21 10:00 02/27/21 12:36 Temperature Temperature Source Pulse Rate Pulse Rate [Finger] 102 H 71 Respiratory Rate Blood Pressure Blood Pressure [Left Arm] 138/89 154/72 H Blood Pressure Mean Blood Pressure Mean [Left Arm] 105 99 Blood Pressure Position Blood Pressure Position [Left Arm] Lying Lying Pulse Oximetry 99 98 Oxygen Delivery Method Nasal Cannula Nasal Cannula Oxygen Flow Rate 3 3 Sepsis Recent Fever Within 48 Hours Sepsis New/Unexplained Change in Mental Status Sepsis Action Taken by Nursing General: Well developed well nourished not ill-appearing older female who is wearing her baseline oxygen and appears in no acute distress, breathing comfortably on room air. Normal speech HEENT: Normal cephalic atraumatic. Pupils are equal round and reactive to light. Extraocular movements are intact. Oropharynx is pink with moist mucous membranes. No swelling of the mouth lips or tongue. Neck: Cervical collar is in place with a midline trachea. Chest: Clear to auscultation bilaterally. No wheezes or rhonchi. No increased work of breathing. Heart: Regular rate and rhythm without murmurs or gallops. Abdomen: Soft nontender, nondistended without rebound guarding or rigidity. Extremities: No cyanosis clubbing or edema. No calf tenderness or assymetry Spine/Back. Non tender to palpation. No CVA tenderness Skin: Good turgor without rashes. Neurologic exam: Cranial nerves two through 12 are intact. Motor and sensation are intact and symmetrical throughout. Medical Decision Making Differential Diagnosis Traumatic injury, cervical strain, cervical fracture, lumbar strain, lumbar fracture, cardiac disease, infection, electrolyte or metabolic abnormality, COVID Medical Records Attestation: I reviewed the patient's medical records. Home Medications Current Medication List: was personally reviewed by me Laboratory Data Attestation: I reviewed the patient's lab results. Result diagrams: 02/27/21 08:30 02/27/21 08:30 Lab Results 02/27/21 02/27/21 02/27/21 Range/Units 08:30 08:30 08:30 WBC 5.55 (4.8-10.8) K/uL RBC 4.03 L (4.2-5.4) M/uL Hgb 11.9 L (12.0-16.0) g/dL Hct 37.8 (37-47) % MCV 93.8 (80-100) fL MCH 29.5 (25-34) pg MCHC 31.5 L (32-36) g/dL RDW Std Deviation 57.6 H (36.4-46.3) fL RDW Coeff of Eric 16.9 H (11.5-14.5) % Plt Count 286 (130-400) K/uL MPV 9.9 (7.4-10.4) fL Immature Gran % (Auto) 0.4 % Neut % (Auto) 65.7 % Lymph % (Auto) 20.4 % Living[place] % (Auto) 12.4 % Eos % (Auto) 0.9 % Baso % (Auto) 0.2 % Neut # (Auto) 3.65 (1.4-6.5) K/uL Lymph # (Auto) 1.13 L (1.2-3.4) K/uL Livingston # (Auto) 0.69 H (0.11-0.59) K/uL Eos # (Auto) 0.05 (0-0.5) K/uL Baso # (Auto) 0.01 (0-0.2) K/uL Immature Gran # (Auto) 0.02 (0.00-0.02) K/uL PT 10.3 (9.0-12.0) Seconds INR 1.0 (0.9-1.1) Sodium 140 (136-145) mmol/L Potassium 3.6 (3.5-5.1) mmol/L Chloride 105 (98-107) mmol/L Carbon Dioxide 32 (21-32) mmol/L Anion Gap 3 (3-11) BUN 15 (6-23) mg/dl Creatinine 0.56 L (0.6-1.2) mg/dl Est Cr Clr Drug Dosing 66.8 ml/min Est GFR ( Amer) 99.9 ml/min Est GFR (Non-Af Amer) 86.2 ml/min BUN/Creatinine Ratio 26.8 H (10-20) Glucose 98 (70-99(Fasting)) mg/dl Calcium 9.5 (8.5-10.1) mg/dl Total Bilirubin 0.3 (0.2-1.0) mg/dl AST 22 (13-39) U/L ALT 12 (7-52) U/L Alkaline Phosphatase 47 (34-104) U/L Total Creatine Kinase 188 (26-192) U/L Troponin I 0.03 (0-0.04) ng/ml Total Protein 6.4 (6.0-8.3) gm/dl Albumin 3.5 (3.4-5.0) gm/dl Globulin 2.9 (2.5-4.0) gm/dl Albumin/Globulin Ratio 1.2 (0.9-2) TSH (0.300-4.500) uIu/ml SARS-CoV-2, RNA, NAAT (NEGATIVE) 02/27/21 02/27/21 Range/Units 08:30 08:40 WBC (4.8-10.8) K/uL RBC (4.2-5.4) M/uL Hgb (12.0-16.0) g/dL Hct (37-47) % MCV (80-100) fL MCH (25-34) pg MCHC (32-36) g/dL RDW Std Deviation (36.4-46.3) fL RDW Coeff of Eric (11.5-14.5) % Plt Count (130-400) K/uL MPV (7.4-10.4) fL Immature Gran % (Auto) % Neut % (Auto) % Lymph % (Auto) % Livingston % (Auto) % Eos % (Auto) % Baso % (Auto) % Neut # (Auto) (1.4-6.5) K/uL Lymph # (Auto) (1.2-3.4) K/uL Livingston # (Auto) (0.11-0.59) K/uL Eos # (Auto) (0-0.5) K/uL Baso # (Auto) (0-0.2) K/uL Immature Gran # (Auto) (0.00-0.02) K/uL PT (9.0-12.0) Seconds INR (0.9-1.1) Sodium (136-145) mmol/L Potassium (3.5-5.1) mmol/L Chloride (98-107) mmol/L Carbon Dioxide (21-32) mmol/L Anion Gap (3-11) BUN (6-23) mg/dl Creatinine (0.6-1.2) mg/dl Est Cr Clr Drug Dosing ml/min Est GFR ( Amer) ml/min Est GFR (Non-Af Amer) ml/min BUN/Creatinine Ratio (10-20) Glucose (70-99(Fasting)) mg/dl Calcium (8.5-10.1) mg/dl Total Bilirubin (0.2-1.0) mg/dl AST (13-39) U/L ALT (7-52) U/L Alkaline Phosphatase (34-104) U/L Total Creatine Kinase (26-192) U/L Troponin I (0-0.04) ng/ml Total Protein (6.0-8.3) gm/dl Albumin (3.4-5.0) gm/dl Globulin (2.5-4.0) gm/dl Albumin/Globulin Ratio (0.9-2) TSH 3.492 (0.300-4.500) uIu/ml SARS-CoV-2, RNA, NAAT NEGATIVE (NEGATIVE) Imaging Data Attestation: I personally reviewed and interpreted this imaging study as follow s: My Impression: Chest x-raycardiomegaly without any definite focal infiltrates, increased opacities in the bases bilaterally. Radiologist's Impression: Chest X-Ray 02/27/21 08:15 XR chest 1V portable CLINICAL HISTORY: weakness TECHNIQUE: Single frontal radiograph of the chest was obtained. Comparison: Comparison is made to chest one view 02/08/2021 FINDINGS: Median sternotomy wires are seen. Pacemaker defibrillator is noted. Cardiomegaly is noted. Bilateral lower lung predominant airspace opacities are seen. No evidence of pleural effusion or pneumothorax. IMPRESSION: Bilateral lower lung predominant airspace opacities which may represent atelectasis, pneumonia, and/or aspiration. ACT 112: Negative or not required by law. Electronically signed by: Gerald Hawk M.D. 02/27/2021 9:00 AM Abdomen/Pelvis CT 02/27/21 08:16 CT abd pelvis wo con, CT lumbar spine wo con CLINICAL HISTORY: fall, back pain TECHNIQUE: Helical axial images of the abdomen and pelvis were obtained. Automated dose lowering techniques and/or adjustment according to patient size were utilized for this exam. Dedicated images of the lumbar spine were obtained. This exam was performed without intravenous contrast. COMPARISON: None available at the time of this dictation. FINDINGS: Lower chest: Bibasilar atelectasis versus scarring is seen. Cardiomegaly is seen with partial visualization of severe atherosclerotic disease. Liver: Unremarkable. No focal lesions are seen. Gallbladder and biliary tree: Patient is status post cholecystectomy. No intra- or extrahepatic biliary ductal dilation. Pancreas: Fatty replacement of the pancreas is seen. Spleen: Unremarkable. Adrenals: There is mild diffuse thickening of the left adrenal gland. 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 Kidneys and ureters: Unremarkable. Bladder: Limited evaluation due to underdistention. Reproductive organs: Unremarkable. Bowel: Diverticulosis is seen without evidence of diverticulitis. A hiatal hernia is seen. Lymph nodes Retroperitoneal: Unremarkable. Mesenteric: Unremarkable. Pelvic: Unremarkable. Peritoneum: Normal. Vessels: Unremarkable. Abdominal wall: Unremarkable. Bones: Multilevel degenerative changes are seen. Anterior wedge deformity is seen at T12. Posterior fixation hardware is seen at L4-L5. IMPRESSION: No evidence of acute abnormalities. In particular no evidence of fractures in this patient with low back pain. ACT 112: Negative or not required by law. Electronically signed by: Gerald Hawk M.D. 02/27/2021 9:[address] 02/27/21 08:16 CT cervical spine wo con CLINICAL HISTORY: fall TECHNIQUE: Multidetector row helical CT of the cervical spine was performed without administration of intravenous contrast. Coronal and sagittal reformations were obtained. Automated dose lowering techniques and/or adjustment according to patient size were utilized for this exam. Comparison: Comparison is made to CT cervical spine 03/28/2020 FINDINGS: No acute fractures or subluxations are identified. Degenerative changes are seen in the visualized spine. The alignment is normal. An 8 millimeter nodule seen in the left upper lobe. IMPRESSION: Degenerative changes without evidence of acute bony injury. 7.5 mm nodule in the right upper lobe. According to Fleischner criteria, CT chest should be performed at 6-12 months. In high-risk patients, a 18-24 month follow-up is recommended, in low-risk patients, this 18-24 month follow-up CT is optional. ACT 112: Negative or not required by law. Electronically signed by: Gerald Hawk M.D. 02/27/2021 9:[address] 02/27/21 08:16 CT head/brain w con CLINICAL HISTORY: fall TECHNIQUE: Contiguous axial CT images of the head from the base of the skull to the vertex before and after intravenous administration of IV contrast and submitted for interpretation. Automated dose lowering techniques and/or adjustment according to patient size were utilized for this examination. COMPARISON: Comparison is made to CT head 03/28/2020 FINDINGS: Areas of decreased attenuation are present in the periventricular and subcortical white matter bilaterally consistent with small vessel ischemic disease. Generalized cerebral atrophy with commensurate enlargement of the ventricles, sulci, and cisterns is also present. There is no acute intracranial hemorrhage or evidence of acute territorial infarction. No shift of the midline structures, mass effect, or extra-axial abnormalities are shown. Atherosclerotic calcifications are present in the intracranial segments of the internal carotid arteries. Imaged portions of the paranasal sinuses and mastoid air cells are clear. The orbits appear normal. There are no acute fractures of the calvaria or scalp swelling. IMPRESSION: No acute intracranial hemorrhage, evidence of large acute territorial infarction, or other acute intracranial disease process. ACT 112: Negative or not required by law. Electronically signed by: Gerald Hawk M.D. 02/27/2021 9:[address] 02/27/21 08:16 CT abd pelvis wo con, CT lumbar spine wo con CLINICAL HISTORY: fall, back pain TECHNIQUE: Helical axial images of the abdomen and pelvis were obtained. Automated dose lowering techniques and/or adjustment according to patient size were utilized for this exam. Dedicated images of the lumbar spine were obtained. This exam was performed without intravenous contrast. COMPARISON: None available at the time of this dictation. FINDINGS: Lower chest: Bibasilar atelectasis versus scarring is seen. Cardiomegaly is seen with partial visualization of severe atherosclerotic disease. Liver: Unremarkable. No focal lesions are seen. Gallbladder and biliary tree: Patient is status post cholecystectomy. No intra- or extrahepatic biliary ductal dilation. Pancreas: Fatty replacement of the pancreas is seen. Spleen: Unremarkable. Adrenals: There is mild diffuse thickening of the left adrenal gland. 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 Kidneys and ureters: Unremarkable. Bladder: Limited evaluation due to underdistention. Reproductive organs: Unremarkable. Bowel: Diverticulosis is seen without evidence of diverticulitis. A hiatal hernia is seen. Lymph nodes Retroperitoneal: Unremarkable. Mesenteric: Unremarkable. Pelvic: Unremarkable. Peritoneum: Normal. Vessels: Unremarkable. Abdominal wall: Unremarkable. Bones: Multilevel degenerative changes are seen. Anterior wedge deformity is seen at T12. Posterior fixation hardware is seen at L4-L5. IMPRESSION: No evidence of acute abnormalities. In particular no evidence of fractures in this patient with low back pain. ACT 112: Negative or not required by law. Electronically signed by: Gerald Hawk M.D. 02/27/2021 9:44 AM ECG Data Attestation: I personally reviewed and interpreted this ECG as follows: Indication: + weakness Rate (beats per minute): 99 Rhythm: + normal sinus ECG Intervals/blocks: + Normal QRS and + Normal QT ECG ST segments: + Nonspecific ST abnormalities ECG Findings: + PVCs; no PACs Comparison ECG Date: from (02/08/21) Change: no significant change MDM Narrative This patient is an 81-year-old female who is brought in by EMS. They do know her well because she apparently falls frequently she has had some neck and back pain which apparently predated seeded the fall. Given the fact that she did fall, I did order CAT scans as well as blood work and EKG and cardiac monitoring. A CK-MB was ordered as well. She was reassessed frequently. COVID test was negative. Chest x-ray does not show any definite pathology she has some slight haziness in the base which is likely atelectasis. she has no symptoms to suggest pneumonia. The patient remained stable and asymptomatic. I do think she needs to be admitted/observed. Our case management team talked to the daughter. She has been falling frequently and they have tried at home but the daughter does not feel she is safe at home. She stable here although she did have 1 episode where she had about a 15 or so beat of wide-complex tachycardia she does have a ICD in place it did not fire. I did report this to Dr. 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 Upon interpretation was noted to be normal sinus rhythm with a rate of 95 Impression & Plan Weakness, Fall, AICD (automatic cardioverter/defibrillator) present, Tachycardia Discharge Plan Visit Data Chief Complaint: Fall Stated Complaint: FALL, CONFUSION, NECK & BACK PAIN ED Provider: Noam Hastings Discharge Problem: Weakness, Fall, AICD (automatic cardioverter/defibrillator) present, Tachycardia Patient Disposition: Admitted As Inpatient Discharge Instructions Interventions: ED Discharge Assessment Last Done: 02/27/21 13:55
[2021-02-27 08:48] LABS: Basophils # (auto) 0.01 K/uL (0-0.2); Basophils % (auto) 0.2 %; Eosinophils # (auto) 0.05 K/uL (0-0.5); Eosinophils % (auto) 0.9 %; Hematocrit (blood only) 37.8 % (37-47); Hemoglobin 11.9 g/dL (12.0-16.0); Immature Granulocytes # (auto) 0.02 K/uL (0.00-0.02); Immature Granulocytes % (auto) 0.4 %; Lymphocytes # (auto) 1.13 K/uL (1.2-3.4); Lymphocytes % (auto) 20.4 %; Mean Corpuscular Hemoglobin 29.5 pg (25-34); Mean Corpuscular Hgb Conc 31.5 g/dL (32-36); Mean Corpuscular Volume 93.8 fL (80-100); Mean Platelet Volume 9.9 fL (7.4-10.4); Monocytes # (auto) 0.69 K/uL (0.11-0.59); Monocytes % (auto) 12.4 %; Neutrophils # (auto) 3.65 K/uL (1.4-6.5); Neutrophils % (auto) 65.7 %; Platelet Count 286 K/uL (130-400); RDW Coefficient of Variation 16.9 % (11.5-14.5); RDW Standard Deviation 57.6 fL (36.4-46.3); Red Blood Count 4.03 M/uL (4.2-5.4); White Blood Count 5.55 K/uL (4.8-10.8)
[2021-02-27 08:56] LABS: Prothrombin Time 10.3 Seconds (9.0-12.0)
--- NOTE | 2021-02-27 09:02 | XRay Report ---
XR chest 1V portable CLINICAL HISTORY: weakness TECHNIQUE: Single frontal radiograph of the chest was obtained. Comparison: Comparison is made to chest one view 02/08/2021 FINDINGS: Median sternotomy wires are seen. Pacemaker defibrillator is noted. Cardiomegaly is noted. Bilateral lower lung predominant airspace opacities are seen. No evidence of pleural effusion or pneumothorax. IMPRESSION: Bilateral lower lung predominant airspace opacities which may represent atelectasis, pneumonia, and/o r aspiration. ACT 112: Negative or not required by law. Electronically signed by: Gerald Hawk M.D. 02/27/2021 9:00 AM
[2021-02-27 09:13] LABS: Troponin I 0.03 ng/ml (0-0.04)
[2021-02-27 09:32] LABS: Albumin Globulin Ratio 1.2 (0.9-2); Albumin Level 3.5 gm/dl (3.4-5.0); BUN Creatinine Ratio 26.8 (10-20); Bilirubin,Total 0.3 mg/dl (0.2-1.0); Calcium 9.5 mg/dl (8.5-10.1); Creatinine Clr Calc Pharmacy 66.8 ml/min; Est GFR (African American) 99.9 ml/min; Est GFR (Non-African American) 86.2 ml/min; Globulin 2.9 gm/dl (2.5-4.0); Potassium 3.6 mmol/L (3.5-5.1); Total Protein 6.4 gm/dl (6.0-8.3)
--- NOTE | 2021-02-27 09:34 | CT Scan Report ---
CT head/brain w con CLINICAL HISTORY: fall TECHNIQUE: Contiguous axial CT images of the head from the base of the skull to the vertex before and after intravenous administration of IV contrast and submitted for interpretation. Automated dose low ering techniques and/or adjustment according to patient size were utilized for this examination. COMPARISON: Comparison is made to CT head 03/28/2020 FINDINGS: Areas of decreased attenuation are present in the periventricular and subcortical white matter bilate rally consistent with small vessel ischemic disease. Generalized cerebral atrophy with commensurate e nlargement of the ventricles, sulci, and cisterns is also present. There is no acute intracranial hem orrhage or evidence of acute territorial infarction. No shift of the midline structures, mass effect, or extra-axial abnormalities are shown. Atherosclerotic calcifications are present in the intracran ial segments of the internal carotid arteries. Imaged portions of the paranasal sinuses and mastoid air cells are clear. The orbits appear normal. There are no acute fractures of the calvaria or scalp swelling. IMPRESSION: No acute intracranial hemorrhage, evidence of large acute territorial infarction, or othe r acute intracranial disease process. ACT 112: Negative or not required by law. Electronically signed by: Gerald Hawk M.D. 02/27/2021 9:33 AM
--- NOTE | 2021-02-27 09:37 | CT Scan Report ---
CT cervical spine wo con CLINICAL HISTORY: fall TECHNIQUE: Multidetector row helical CT of the cervical spine was performed without administration of intravenous contrast. Coronal and sagittal reformations were obtained. Automated dose lowering techn iques and/or adjustment according to patient size were utilized for this exam. Comparison: Comparison is made to CT cervical spine 03/28/2020 FINDINGS: No acute fractures or subluxations are identified. Degenerative changes are seen in the visualized sp ine. The alignment is normal. An 8 millimeter nodule seen in the left upper lobe. IMPRESSION: Degenerative changes without evidence of acute bony injury. 7.5 mm nodule in the right upper lobe. Ac cording to Fleischner criteria, CT chest should be performed at 6-12 months. In high-risk patients, a 18-24 month follow-up is recommended, in low-risk patients, this 18-24 month follow-up CT is optiona l. ACT 112: Negative or not required by law. Electronically signed by: Gerald Hawk M.D. 02/27/2021 9:36 AM
--- NOTE | 2021-02-27 09:46 | CT Scan Report ---
CT abd pelvis wo con, CT lumbar spine wo con CLINICAL HISTORY: fall, back pain TECHNIQUE: Helical axial images of the abdomen and pelvis were obtained. Automated dose lowering tech niques and/or adjustment according to patient size were utilized for this exam. Dedicated images of t he lumbar spine were obtained. This exam was performed without intravenous contrast. COMPARISON: None available at the time of this dictation. FINDINGS: Lower chest: Bibasilar atelectasis versus scarring is seen. Cardiomegaly is seen with partial visual ization of severe atherosclerotic disease. Liver: Unremarkable. No focal lesions are seen. Gallbladder and biliary tree: Patient is status post cholecystectomy. No intra- or extrahepatic bilia ry ductal dilation. Pancreas: Fatty replacement of the pancreas is seen. Spleen: Unremarkable. Adrenals: There is mild diffuse thickening of the left adrenal gland. There is a lipid rich adenoma i n the right adrenal gland. Kidneys and ureters: Unremarkable. Bladder: Limited evaluation due to underdistention. Reproductive organs: Unremarkable. Bowel: Diverticulosis is seen without evidence of diverticulitis. A hiatal hernia is seen. Lymph nodes Retroperitoneal: Unremarkable. Mesenteric: Unremarkable. Pelvic: Unremarkable. Peritoneum: Normal. Vessels: Unremarkable. Abdominal wall: Unremarkable. Bones: Multilevel degenerative changes are seen. Anterior wedge deformity is seen at T12. Posterior f ixation hardware is seen at L4-L5. IMPRESSION: No evidence of acute abnormalities. In particular no evidence of fractures in this patient with low b ack pain. ACT 112: Negative or not required by law. Electronically signed by: Gerald Hawk M.D. 02/27/2021 9:44 AM
--- NOTE | 2021-02-27 11:39 | History & Physical Report ---
Date of Service February 27, 2021 Assessment & Plan (1) Fall: Plan: recurrent falls in an 81 yo female with history of dementia Patient will be admitted to tele under OBS due to a brief run of V tach. (noted in communication report) Patient appears that she will ultimately need placement as she does not appear to be safe at home. (2) Tachycardia: Plan: paroxysmal a fib noted in history. current sinus tach. will monitor. ordered d-dimer, P/E appears low in differential, will order lower extremity doppler. If positive, WILL THEN order P/E CT scan. (3) Ulcerative colitis: Plan: not on meds (4) GERD (gastroesophageal reflux disease): Plan: continue PPI (5) Chronic systolic CHF (congestive heart failure): Plan: -No records for review -- No evidence of heart failure at this time. -- Continue Lasix 40 mg daily. -- Monitor I&O's. (6) Dementia: Plan: supportive care continue Rivastigmine \ (7) COPD (chronic obstructive pulmonary disease): Plan: -- Continue usual inhalers. -- Duoneb nebulizer treatments. -- Continue supplemental O2. (8) Stented coronary artery: (9) S/P CABG x 2: (10) AICD (automatic cardioverter/defibrillator) present: Plan: Noted (11) Cardiomyopathy: Plan: as above (12) CAD (coronary artery disease): History of Present Illness Chief Complaint: fall Primary Care Provider: Bony Guerrero Ms. Keita is an 81 year old female with a history of Dementia, multiple falls, Asthma, COPD, Chronic Hypoxic and Hypercapnic Respiratory Failure (on chronic supplemental O2 at 4 L/min), CAD s/p ID 2004 s/p 2 Intracoronary Stents followed by CABG x 2 Vessels, Ischemic Cardiomyopathy s/p AICD, Chronic Systolic CHF, GERD, Depression, Nodular Goiter, Peripheral Neuropathy, Ulcerative Colitis, Nephrolithiasis, and Paroxysmal Atrial Fibrillation, presents with a fall. Patient was found to be on the floor near her bed. She appears to have been smoking, and was not wearing her oxygen when the paramedics arrived. Patient has COPD and normally requires to be on oxygen. Paramedics have been visiting her house for falls, and due to this, ER provider relays that patient may not be safe to live home. Allergies Allergy/AdvReac Type Severity Reaction Status Date / Time No Known Allergies Allergy Verified 02/08/21 12:09 Home Medications Medication Instructions Recorded Confirmed Type Lactobac 51-Bifidobac 1 cap PO DAILY@1200 03/28/20 02/27/21 History 3-L.lactis-S.thermophilus 4 billion cell capsule (Daily Probiotic (10 Strains)) atorvastatin 40 mg tablet 40 mg PO DAILY@1500 03/28/20 02/27/21 History biotin 10,000 mcg capsule 10,000 mcg PO DAILY 03/28/20 02/27/21 History cetirizine 10 mg tablet 10 mg PO QAM 03/28/20 02/27/21 History cyanocobalamin (vitamin B-12) 5,000 mcg PO QAM 03/28/20 02/27/21 History 5,000 mcg sublingual tablet (Vitamin B-12) furosemide 40 mg tablet 40 mg PO QAM 03/28/20 02/27/21 History lamotrigine 100 mg tablet 100 mg PO AMHS 03/28/20 02/27/21 History lorazepam 0.5 mg tablet 0.5 mg PO DAILY@1500 03/28/20 02/27/21 History multivitamin with calcium and 1 tab PO DAILY 03/28/20 02/27/21 History minerals-folic acid 200 mcg tablet (One-A-Day Proactive 65 Plus) naloxegol 25 mg tablet (Movantik) 25 mg PO QAM 03/28/20 02/27/21 History omeprazole 20 mg capsule,delayed 20 mg PO BID 03/28/20 02/27/21 History release oxycodone-acetaminophen 10 mg-325 1 tab PO QID PRN 03/28/20 02/27/21 History mg tablet potassium chloride 20 mEq 20 meq PO DAILY@1500 03/28/20 02/27/21 History tablet,extended release(part/cryst) rivastigmine 1 patch TRANSDERMAL DAILY 03/28/20 02/27/21 History sennosides 8.6 mg-docusate sodium 1 tab PO HS 03/28/20 02/27/21 History 50 mg tablet (Stool Softener-Laxative) baclofen 10 mg tablet 10 mg PO BID 02/08/21 02/27/21 History fluticasone furoate 100 1 inh INHALATION DAILY 02/08/21 02/27/21 History mcg-vilanterol 25 mcg/dose inhalation powder (Breo Ellipta) fluticasone propionate 50 2 spray INTRANASAL DAILY PRN 02/08/21 02/27/21 History mcg/actuation nasal spray,suspension paroxetine HCl 37.5 mg 37.5 mg PO DAILY 02/08/21 02/27/21 History tablet,extended release 24 hr quetiapine 25 mg tablet 50 mg PO HS 02/08/21 02/27/21 History sucralfate 1 gram tablet 1 g PO TID 02/27/21 02/27/21 History Past Med/Surg History Medical History Arthritis Chronic back pain Chronic systolic CHF (congestive heart failure) Dementia Depression GERD (gastroesophageal reflux disease) Goiter, nodular Hypokalemia Myocardial infarction Nephrolithiasis Paroxysmal atrial fibrillation Peripheral neuropathy Ulcerative colitis UTI (urinary tract infection) Surgical History AICD (automatic cardioverter/defibrillator) present Hx of cholecystectomy Social History Smoking Status: Former smoker Tobacco Type: Cigarettes Cigarettes Per Day: 1 pack per day; Smoking End Date: approx August 2020; Second Hand Exposure: No; Tobacco Cessation Education Requested by Patient: No Hx Alcohol Use: No Hx Substance Use: No Preferred Language: Hungarian Communication Ability: Impaired Science Intern Required: No Beliefs That Will Affect Care: None Current Living Situation: Alone and Other Current Living Situation Comment: Caregivers, see CM note in EHR current occupational status: retired Other Information That Helps Us Care for You: Yes ( approx 2018) Feels Safe at Home: Yes Safety Concerns: Feels Safe At This Time Assistive Devices: Oxygen - Continuous Assistive Devices Comment: Upper dentures not in room 303, Pt thinks they are still at home Review of Systems Review of Systems: All systems reviewed & are unremarkable except as noted in HPI & below Physical Exam Physical Exam: GENERAL: Patient lying in bed, she is in no acute distress. HEENT: Head is atraumatic, normocephalic. EOM's intact. Facies symmetric. No perioral cyanosis. NECK: No JVD. JVP is not elevated. Carotid upstrokes are + 2 bilaterally. CHEST/LUNGS: lungs appear clear. CVS: S1 and S2 are regular without obvious murmurs, gallops, or rubs. PMI is nonpalpable. No lifts, heaves, or thrills. No abdominal aortic or renal bruits. ABDOMINAL EXAM: Bowel sounds are present. No masses, organomegaly, or tenderness. EXTREMITIES: No clubbing or cyanosis. No edema. Intact radial pulses bilaterally. NEUROLOGIC EXAM: Patient is awake, alert, and interactive. She is oriented to self, place. Not to time. Results & Data Results & Data ([facility]) Vital Signs (Past 12 Hours) Vital Signs Temp Pulse Pulse Resp BP BP Pulse Ox 02/27/21 10:00 102 H 138/89 99 02/27/21 08:20 100 02/27/21 08:19 36.6 C 98 H 24 108/77 100 02/27/21 08:10 36.6 C 101 H 22 108/77 100 PG Care Time/CCT Total # of Minutes Spent Total Time Spent with Patient: Total time spent is greater than 50% in coordination of care (as documented) at patient's floor/unit and/or counseling patient: Coding Level of Care Code INT OBSERVATION CARE 70M LVL 3 Diagnoses Fall W19.XXXA Encounter type: initial encounter Tachycardia R00.0 Ulcerative colitis K51.90 GERD (gastroesophageal reflux disease) K21.9 Chronic systolic CHF (congestive heart failure) I50.22 Dementia F03.90 COPD (chronic obstructive pulmonary disease) J44.9 Stented coronary artery Z95.5 S/P CABG x 2 Z95.1 AICD (automatic cardioverter/defibrillator) present Z95.810 Cardiomyopathy I42.9 CAD (coronary artery disease) I25.10 (1) Fall Encounter type: initial encounter Qualified Code(s): W19.XXXA - Unspecified fall, initial encounter
[2021-02-27] MEDS ORDERED: ACETAMINOPHEN 325 MG TAB PO PRN (12:44)
[2021-02-27] MEDS ORDERED: ONDANSETRON INJ 2 MG/ML 2 ML VIAL IV PRN (12:44)
[2021-02-27] MEDS ORDERED: oxyCODONE/ACETAMINOPHEN 10-325 TAB PO PRN (12:47)
--- NOTE | 2021-02-27 13:40 | Communication Note ---
Date of Service: February 27, 2021 I was notified by emergency room physician the patient had an asymptomatic run of what appeared to be a wide-complex tachycardia that self resolved. Patient's chart was reviewed and cardiac enzymes checked initially at time of emergency room visit were negative. No significant electrolyte deficiencies or abnormalities were noted on admission labs. Due to this noted arrhythmia we will upgrade the patient's admission status to telemetry and repeat cardiac enzymes approximately 6 hours from time of initial labs. We will continue to monitor closely.
[2021-02-27 15:35] LABS: D Dimer 2190 ug/L FEU (0-500)
[2021-02-27] MEDS: POTASSIUM CHLORIDE CRTAB 20 MEQ TABCR PO SCH (15:46)
[2021-02-27] MEDS: SUCRALFATE 1 GM TAB PO SCH ×2 (15:46→21:53)
[2021-02-27] MEDS: LORazepam 0.5 MG TAB PO SCH (15:46)
[2021-02-27] MEDS: ATORVASTATIN 40 MG TAB PO SCH (16:12)
--- NOTE | 2021-02-27 20:33 | Electrocardiogram Report ---
Test Reason : Blood Pressure : / mmHG Vent. Rate : 099 BPM Atrial Rate : 099 BPM P-R Int : 158 ms QRS Dur : 088 ms QT Int : 370 ms P-R-T Axes : 060 059 -33 degrees QTc Int : 474 ms Poor data quality, interpretation may be adversely affected Sinus rhythm with frequent Premature ventricular complexes and Fusion complexes Abnormal ECG When compared with ECG of 08-FEB-2021 18:46, Fusion complexes are now Present Premature supraventricular complexes are no longer Present ST now depressed in Anterior leads T wave inversion now evident in Inferior leads Confirmed by Hiram Perez ([id number]) on 02/27/2021 8:33:20 PM Referred By: REFERRED SELF Confirmed By:Talib Perez
[2021-02-27] MEDS: ENOXAPARIN INJ 40 MG/0.4 ML SYR SQ SCH (21:53)
[2021-02-27] MEDS: PANTOprazole 40 MG TAB PO SCH (21:53)
[2021-02-27] MEDS: BACLOFEN 10 MG TAB PO SCH (21:54)
[2021-02-27] MEDS: DOCUSATE SODIUM/SENNA 50/8.6MG TAB PO SCH (21:54)
[2021-02-27] MEDS: lamoTRIgine 100 MG TAB PO SCH (21:54)
[2021-02-27] MEDS: QUEtiapine FUMARATE 25 MG TABLET PO SCH (21:55)
[2021-02-28 06:48] LABS: Appearance Urine Clear (Clear); Bilirubin Urine Negative (Negative); Blood Urine Negative (Negative); Color Urine Yellow; Epithelial Cell Urine Auto >30 /lpf (0-5); Glucose Urine UA Negative (Negative); Ketones Urine Trace (Negative); Leukocyte Esterase Urine 1+ (Negative); Nitrite Urine Negative (Negative); Protein Urine Negative (Negative); Specific Gravity Urine 1.022 (1.000-1.030); Urobilinogen Urine Negative (Negative); WBC Urine Automated >30 /hpf (0-5)
[2021-02-28 07:02] LABS: Calcium Oxalate Crystals Urine Present (None Prsent); Mucus Urine Present (None Prsent); RBC Urine Automated 0-4 /hpf (0-4)
[2021-02-28 07:03] LABS: Bacteria Urine Automated 1+ (Negative)
[2021-02-28] MEDS: SUCRALFATE 1 GM TAB PO SCH ×3 (07:50→20:18)
[2021-02-28] MEDS: PANTOprazole 40 MG TAB PO SCH ×2 (07:50→20:18)
[2021-02-28] MEDS: MULTIVITAMIN TAB PO SCH (07:50)
[2021-02-28] MEDS: PARoxetine HCl CONTROLLED REL 12.5 MG TABCR PO SCH (07:50)
[2021-02-28] MEDS: lamoTRIgine 100 MG TAB PO SCH ×2 (07:51→20:17)
[2021-02-28] MEDS: CETIRIZINE HCL 10 MG TABLET PO SCH (07:51)
[2021-02-28] MEDS: BACLOFEN 10 MG TAB PO SCH ×2 (07:51→20:29)
[2021-02-28] MEDS: FUROSEMIDE 40 MG TAB PO SCH (07:51)
[2021-02-28] MEDS: FLUTICASONE/VILANTEROL 100/25MCG 14 PUFFS/INHALER INH SCH (07:51)
--- NOTE | 2021-02-28 08:35 | Hospitalist Progress Note ---
Date of Service February 28, 2021 Assessment & Plan (1) Fall: Plan: recurrent falls in an 81 yo female with history of dementia. Patient appears that she will ultimately need placement as she does not appear to be safe at home per EMS reported finding patient at end of bed possibly smoking, not wearing supplemental oxygen Patient will be admitted to tele under OBS due to a brief run of V tach. (noted in communication report --> notified by emergency room physician the patient had an asymptomatic run of what appeared to be a wide-complex tachycardia that self resolved. Patient's chart was reviewed and cardiac enzymes checked initially at time of emergency room visit were negative. No significant electrolyte deficiencies or abnormalities were noted on admission labs. Due to this noted arrhythmia we will upgrade the patient's admission status to telemetry and repeat cardiac enzymes approximately 6 hours from time of initial labs, repeat negative) Recent COVID/Flu admission and previously completed 10 days dexamethasone and [address] Head No acute intracranial hemorrhage, evidence of large acute territorial infarction, or other acute intracranial disease process CT Cervical Spine Degenerative changes without evidence of acute bony injury. 7.5 mm nodule in the right upper lobe. According to Fleischner criteria, CT chest should be performed at 6-12 months. In high-risk patients, a 18-24 month follow-up is recommended, in low-risk patients, this 18-24 month follow-up CT is optional. CTA/P IMPRESSION: No evidence of acute abnormalities. In particular no evidence of fractures in this patient with low back pain. CXR on admission b/l lower lung predominant airspace opacities which may represent atelectasis, pneumonia or aspiration Ddimer positive on admission Venous Dopplers NEGATIVE for DVT Check CTA to r/o PE --> NEGATIVE for PE, but did note: * mild patchy nodular airspace consolidation as above, greatest in the left upper lobe. This is new from 02/08/2021 and typical for an infectious/inflammatory pneumonitis. A follow-up chest CT in 3-4 months time is recommended to document complete resolution. Will add azithromycin for COPD exacerbation (got last admission), add mucinex. Sputum cx if able to obtain Check iron studies as well as B12 given anemia. TSH wnl B12 >1500 Will start on empiric thiamine UA pending -- appears contaminated but follow cx. No urinary symptoms reported but given dementia/negative ROS will monitor cx. No fever. No leukocytosis (2) Tachycardia: Plan: paroxysmal a fib noted in history, ?unclear why not on anticoagulation ?hx GI bleeding? --> Hx bleeding on plavix 150mg (2 tablets daily) and aspirin but nothing since that time --> has hx parosyxmal afib but has a watchman device per daughter On aspirin 81mg daily -- per daughter, she had been providing and patient has been getting Remains sinus tachy on monitor CTA NEGATIVE for PE ?anxiety -- she is very anxious about being in hospital and not wanting to go to rehab as well. However, daughter states this has been chronic issue Not on BB --> will request records from her yard hostler in [place] for more information Monitor on telemetry -- no further episodes of wide complex tachy (on admission, self-resolved). will check mag as well, not checked on admit (3) Ulcerative colitis: Plan: hx of such, increased risk of clotting. checking CTA/venous doppler as above not on meds (4) GERD (gastroesophageal reflux disease): Plan: continue PPI, also on Carafate (5) Chronic systolic CHF (congestive heart failure): Plan: CAD s/p MD 2004 s/p 2 Intracoronary Stents followed by CABG x 2 Vessels, Ischemic Cardiomyopathy s/p AICD, Chronic Systolic CHF -No records for review -- No evidence of heart failure at this time. -- Continue Lasix 40 mg daily -- Monitor I&O's. Continue ASA (will restart as started last admission, not continued at discharge but daughter did state she does take 81mg daily that she provides for her), atorvastatin (6) Dementia: Plan: supportive care continue Rivastigmine will check B12 as well, TSH wnl on admission (7) COPD (chronic obstructive pulmonary disease): Plan: -- Continue usual inhalers -- breo -- Duoneb nebulizer treatments. -- Continue supplemental O2. --> Last admission 2 step done prior to d/c and no need supplemental O2 at rest, 2L needed with exertion --> wean O2 as tolerated, currently upper 90s on 3L NC titrate as able check iron studies/b12/folate (8) Stented coronary artery: Plan: remains on aspirin daily (9) S/P CABG x 2: Plan: continue home medications (10) AICD (automatic cardioverter/defibrillator) present: Plan: Noted also has watchman device/history of paroxysmal afib (11) Cardiomyopathy: Plan: as above req records from [place] for more information (12) CAD (coronary artery disease): Plan: continue ASA/statin Plan: PT/OT consults pending -- will likely need rehab/placement as unsafe to return home safely Admission and Anticipated Discharge Date Admission Date: February 27, 2021 Supervising Physician Co-Signing Physician Notes PATRICIA Supervision Note: I did not personally see or examine the patient today, but I verified all rivero points of PATRICIA Justice's assessment and plan with the following exceptions/additions: None Subjective patient evaluated this afternoon states she is doing well and wanting to leave hospital as she is bored denied falling discussed will need therapy evals to determine safety prior to d/c and ok'd if I called her daughter to discuss. She agreed patient denies fever, chills, chest pain, shortness of breath, cough, abdominal pain, nausea, vomiting, dysuria at this time. Eating/drinking no issues. Per daughter, patient with progressive decline/increased needs at home. Upon admission thought 24/7 care at home but per daughter 12 hours at home and got approved for 4 additional but obviously this has not been enough. Discussed therapy evals and rehab facilities and if able to make improvements they may consider d/c back with caregivers but if does not would look into cell installer placement. She notes mother did have hx GIB in past many years ago after being on plavix 150mg daily (on generic and name brand and pharmacy did not notice) as well as 81mg aspirin daily and once this was caught, no further GI bleeding issues. Discussed hx of paroxysmal afib -- daughter does note this history but unsure why no on has ever mentioned AC, but then did note her mother has Watchman device, which as discussed likely why not on AC. She does note her mothers HR has been on the higher side and concerned about her working with rehab. Questioned if patient on BB in the past -- unsure but did not BPs always on the lower side so that may be why. Review of Systems Review of Systems: All systems reviewed & are unremarkable except as noted in HPI & below Physical Exam Physical Exam: GENERAL:WD/WN elderly female, laying in bed, no acute distress. On 3L NC with SpO2 90s. ENT: slightly dry mm, no JVD CV: regular rhythm, rate 102bpm, no m/r/g, trace b/l edema Resp: diminished in the bases, scattered crackles, rales/rhonchi to L>R anterior/posterior lung miller, on 3L NC GI: +BS, soft, non-tender : no dumont MSK: moves all extremities, no calf edema/erythema/tenderness, no focal back pain/spinal tenderness Neuro: CN intact grossly, 4/5 strength b/l LE Psych: awake, alert and oriented to self/that she is in the hospital. Not to time/situation. Poor insight. Results & Data Results & Data ([facility]) Vital Signs (Past 12 Hours) Vital Signs Temp Pulse Pulse Resp BP BP Pulse Ox 02/28/21 07:31 36.8 C 99 H 19 122/74 98 02/28/21 04:56 37.0 C 99 H 20 144/78 H 96 02/27/21 23:51 91 H 02/27/21 22:55 36.6 C 93 H 16 94/63 L 97 02/27/21 20:37 101 H 02/27/21 20:36 36.8 C 95 H 22 116/77 95 Laboratory Results 02/28/21 02/28/21 02/28/21 Range/Units 15:20 11:25 09:47 WBC (4.8-10.8) K/uL RBC (4.2-5.4) M/uL Hgb (12.0-16.0) g/dL Hct (37-47) % MCV (80-100) fL MCH (25-34) pg MCHC (32-36) g/dL RDW Std Deviation (36.4-46.3) fL RDW Coeff of Eric (11.5-14.5) % Plt Count (130-400) K/uL MPV (7.4-10.4) fL Sodium (136-145) mmol/L Potassium (3.5-5.1) mmol/L Chloride (98-107) mmol/L Carbon Dioxide (21-32) mmol/L Anion Gap (3-11) BUN (6-23) mg/dl Creatinine (0.6-1.2) mg/dl Est Cr Clr Drug Dosing ml/min Est GFR ( Amer) ml/min Est GFR (Non-Af Amer) ml/min BUN/Creatinine Ratio (10-20) Glucose (70-99(Fasting)) mg/dl POC Glucose 116 H (70-99) mg/dl Calcium (8.5-10.1) mg/dl Iron Pending TIBC Pending Unsaturated IBC Pending Transferrin Pending Transferrin % Sat Pending Vitamin B12 (211-911) pg/ml Urine Color Urine Appearance (Clear) Urine pH (4.5-7.5) Ur Specific [place] (1.000-1.030) Urine Protein (Negative) Urine Glucose (UA) (Negative) Urine Ketones (Negative) Urine Blood (Negative) Urine Nitrite (Negative) Urine Bilirubin (Negative) Urine Urobilinogen (Negative) Ur Leukocyte Esterase (Negative) Urine WBC (Auto) (0-5) /hpf Urine RBC (Auto) (0-4) /hpf U Hyaline Cast (Auto) (0-5) /lpf U Epithel Cells (Auto) (0-5) /lpf Urine Bacteria (Auto) (Negative) Ur Renal Epithelial Cell Calcium Oxalate Crystal (None Prsent) Urine Mucus (None Prsent) Nasal Screen MRSA (PCR) Pending 02/28/21 02/28/21 02/28/21 Range/Units 09:47 09:47 09:47 WBC 3.27 L (4.8-10.8) K/uL RBC 3.72 L (4.2-5.4) M/uL Hgb 10.9 L (12.0-16.0) g/dL Hct 34.8 L (37-47) % MCV 93.5 (80-100) fL MCH 29.3 (25-34) pg MCHC 31.3 L (32-36) g/dL RDW Std Deviation 58.2 H (36.4-46.3) fL RDW Coeff of Eric 17.1 H (11.5-14.5) % Plt Count 225 (130-400) K/uL MPV 9.8 (7.4-10.4) fL Sodium 136 (136-145) mmol/L Potassium 3.7 (3.5-5.1) mmol/L Chloride 100 (98-107) mmol/L Carbon Dioxide 31 (21-32) mmol/L Anion Gap 5 (3-11) BUN 14 (6-23) mg/dl Creatinine 0.70 (0.6-1.2) mg/dl Est Cr Clr Drug Dosing 53.5 ml/min Est GFR ( Amer) 92.9 ml/min Est GFR (Non-Af Amer) 80.1 ml/min BUN/Creatinine Ratio 20.0 (10-20) Glucose 137 H (70-99(Fasting)) mg/dl POC Glucose (70-99) mg/dl Calcium 8.7 (8.5-10.1) mg/dl Iron TIBC Unsaturated IBC Transferrin Transferrin % Sat Vitamin B12 > 1500 H (211-911) pg/ml Urine Color Urine Appearance (Clear) Urine pH (4.5-7.5) Ur Specific [place] (1.000-1.030) Urine Protein (Negative) Urine Glucose (UA) (Negative) Urine Ketones (Negative) Urine Blood (Negative) Urine Nitrite (Negative) Urine Bilirubin (Negative) Urine Urobilinogen (Negative) Ur Leukocyte Esterase (Negative) Urine WBC (Auto) (0-5) /hpf Urine RBC (Auto) (0-4) /hpf U Hyaline Cast (Auto) (0-5) /lpf U Epithel Cells (Auto) (0-5) /lpf Urine Bacteria (Auto) (Negative) Ur Renal Epithelial Cell Calcium Oxalate Crystal (None Prsent) Urine Mucus (None Prsent) Nasal Screen MRSA (PCR) 02/28/21 02/28/21 Range/Units 07:29 06:30 WBC (4.8-10.8) K/uL RBC (4.2-5.4) M/uL Hgb (12.0-16.0) g/dL Hct (37-47) % MCV (80-100) fL MCH (25-34) pg MCHC (32-36) g/dL RDW Std Deviation (36.4-46.3) fL RDW Coeff of Eric (11.5-14.5) % Plt Count (130-400) K/uL MPV (7.4-10.4) fL Sodium (136-145) mmol/L Potassium (3.5-5.1) mmol/L Chloride (98-107) mmol/L Carbon Dioxide (21-32) mmol/L Anion Gap (3-11) BUN (6-23) mg/dl Creatinine (0.6-1.2) mg/dl Est Cr Clr Drug Dosing ml/min Est GFR ( Amer) ml/min Est GFR (Non-Af Amer) ml/min BUN/Creatinine Ratio (10-20) Glucose (70-99(Fasting)) mg/dl POC Glucose 108 H (70-99) mg/dl Calcium (8.5-10.1) mg/dl Iron TIBC Unsaturated IBC Transferrin Transferrin % Sat Vitamin B12 (211-911) pg/ml Urine Color Yellow Urine Appearance Clear (Clear) Urine pH 5.0 (4.5-7.5) Ur Specific [place] 1.022 (1.000-1.030) Urine Protein Negative (Negative) Urine Glucose (UA) Negative (Negative) Urine Ketones Trace H (Negative) Urine Blood Negative (Negative) Urine Nitrite Negative (Negative) Urine Bilirubin Negative (Negative) Urine Urobilinogen Negative (Negative) Ur Leukocyte Esterase 1+ H (Negative) Urine WBC (Auto) >30 H (0-5) /hpf Urine RBC (Auto) 0-4 (0-4) /hpf U Hyaline Cast (Auto) 1-5 (0-5) /lpf U Epithel Cells (Auto) >30 H (0-5) /lpf Urine Bacteria (Auto) 1+ H (Negative) Ur Renal Epithelial Cell Not Reportable Calcium Oxalate Crystal Present A (None Prsent) Urine Mucus Present A (None Prsent) Nasal Screen MRSA (PCR) Diagnostic Findings Chest X-Ray 02/27/21 08:15 XR chest 1V portable CLINICAL HISTORY: weakness TECHNIQUE: Single frontal radiograph of the chest was obtained. Comparison: Comparison is made to chest one view 02/08/2021 FINDINGS: Median sternotomy wires are seen. Pacemaker defibrillator is noted. Cardiomegaly is noted. Bilateral lower lung predominant airspace opacities are seen. No evidence of pleural effusion or pneumothorax. IMPRESSION: Bilateral lower lung predominant airspace opacities which may represent atelectasis, pneumonia, and/or aspiration. ACT 112: Negative or not required by law. Electronically signed by: Gerald Hawk M.D. 02/27/2021 9:00 AM Abdomen/Pelvis CT 02/27/21 08:16 CT abd pelvis wo con, CT lumbar spine wo con CLINICAL HISTORY: fall, back pain TECHNIQUE: Helical axial images of the abdomen and pelvis were obtained. Automated dose lowering techniques and/or adjustment according to patient size were utilized for this exam. Dedicated images of the lumbar spine were obtained. This exam was performed without intravenous contrast. COMPARISON: None available at the time of this dictation. FINDINGS: Lower chest: Bibasilar atelectasis versus scarring is seen. Cardiomegaly is seen with partial visualization of severe atherosclerotic disease. Liver: Unremarkable. No focal lesions are seen. Gallbladder and biliary tree: Patient is status post cholecystectomy. No intra- or extrahepatic biliary ductal dilation. Pancreas: Fatty replacement of the pancreas is seen. Spleen: Unremarkable. Adrenals: There is mild diffuse thickening of the left adrenal gland. 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 Kidneys and ureters: Unremarkable. Bladder: Limited evaluation due to underdistention. Reproductive organs: Unremarkable. Bowel: Diverticulosis is seen without evidence of diverticulitis. A hiatal hernia is seen. Lymph nodes Retroperitoneal: Unremarkable. Mesenteric: Unremarkable. Pelvic: Unremarkable. Peritoneum: Normal. Vessels: Unremarkable. Abdominal wall: Unremarkable. Bones: Multilevel degenerative changes are seen. Anterior wedge deformity is seen at T12. Posterior fixation hardware is seen at L4-L5. IMPRESSION: No evidence of acute abnormalities. In particular no evidence of fractures in this patient with low back pain. ACT 112: Negative or not required by law. Electronically signed by: Gerald Hawk M.D. 02/27/2021 9:[address] 02/27/21 08:16 CT cervical spine wo con CLINICAL HISTORY: fall TECHNIQUE: Multidetector row helical CT of the cervical spine was performed without administration of intravenous contrast. Coronal and sagittal reformations were obtained. Automated dose lowering techniques and/or adjustment according to patient size were utilized for this exam. Comparison: Comparison is made to CT cervical spine 03/28/2020 FINDINGS: No acute fractures or subluxations are identified. Degenerative changes are seen in the visualized spine. The alignment is normal. An 8 millimeter nodule seen in the left upper lobe. IMPRESSION: Degenerative changes without evidence of acute bony injury. 7.5 mm nodule in the right upper lobe. According to Fleischner criteria, CT chest should be performed at 6-12 months. In high-risk patients, a 18-24 month follow-up is recommended, in low-risk patients, this 18-24 month follow-up CT is optional. ACT 112: Negative or not required by law. Electronically signed by: Gerald Hawk M.D. 02/27/2021 9:[address] 02/27/21 08:16 CT head/brain w con CLINICAL HISTORY: fall TECHNIQUE: Contiguous axial CT images of the head from the base of the skull to the vertex before and after intravenous administration of IV contrast and submitted for interpretation. Automated dose lowering techniques and/or a djustment according to patient size were utilized for this examination. COMPARISON: Comparison is made to CT head 03/28/2020 FINDINGS: Areas of decreased attenuation are present in the periventricular and subcortical white matter bilaterally consistent with small vessel ischemic disease. Generalized cerebral atrophy with commensurate enlargement of the ventricles, sulci, and cisterns is also present. There is no acute intracranial hemorrhage or evidence of acute territorial infarction. No shift of the midline structures, mass effect, or extra-axial abnormalities are shown. Atherosclerotic calcifications are present in the intracranial segments of the internal carotid arteries. Imaged portions of the paranasal sinuses and mastoid air cells are clear. The orbits appear normal. There are no acute fractures of the calvaria or scalp swelling. IMPRESSION: No acute intracranial hemorrhage, evidence of large acute territorial infarction, or other acute intracranial disease process. ACT 112: Negative or not required by law. Electronically signed by: Gerald Hawk M.D. 02/27/2021 9:[address] 02/27/21 08:16 CT abd pelvis wo con, CT lumbar spine wo con CLINICAL HISTORY: fall, back pain TECHNIQUE: Helical axial images of the abdomen and pelvis were obtained. Automated dose lowering techniques and/or adjustment according to patient size were utilized for this exam. Dedicated images of the lumbar spine were obtained. This exam was performed without intravenous contrast. COMPARISON: None available at the time of this dictation. FINDINGS: Lower chest: Bibasilar atelectasis versus scarring is seen. Cardiomegaly is seen with partial visualization of severe atherosclerotic disease. Liver: Unremarkable. No focal lesions are seen. Gallbladder and biliary tree: Patient is status post cholecystectomy. No intra- or extrahepatic biliary ductal dilation. Pancreas: Fatty replacement of the pancreas is seen. Spleen: Unremarkable. Adrenals: There is mild diffuse thickening of the left adrenal gland. 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 Kidneys and ureters: Unremarkable. Bladder: Limited evaluation due to underdistention. Reproductive organs: Unremarkable. Bowel: Diverticulosis is seen without evidence of diverticulitis. A hiatal hernia is seen. Lymph nodes Retroperitoneal: Unremarkable. Mesenteric: Unremarkable. Pelvic: Unremarkable. Peritoneum: Normal. Vessels: Unremarkable. Abdominal wall: Unremarkable. Bones: Multilevel degenerative changes are seen. Anterior wedge deformity is seen at T12. Posterior fixation hardware is seen at L4-L5. IMPRESSION: No evidence of acute abnormalities. In particular no evidence of fractures in this patient with low back pain. ACT 112: Negative or not required by law. Electronically signed by: Gerald Hawk M.D. 02/27/2021 9:44 AM Chest CTA 02/28/21 08:25 CT ANGIOGRAM OF THE CHEST CLINICAL HISTORY: Fall. Elevated d-dimer. Recent Covid. COMPARISON STUDY: Chest x-ray dated 02/27/2021. Chest CT dated 02/08/2021. TECHNIQUE: Following the IV administration of 118 cc of Optiray 320, CT angiogram of the chest was performed from the upper abdomen to the thoracic inlet utilizing the pulmonary embolus protocol. Images are reviewed in the axial, sagittal, and coronal planes. 3-D MIPS images are created and assessed. IV contrast was administered without complication. A dose lowering technique was utilized adhering to the principles of ALARA. CT DOSE: 279.85 mGycm FINDINGS: Thyroid: Imaged portions of the thyroid gland are normal in size and attenuation. Thoracic aorta: There is atherosclerotic calcification of the thoracic aorta, which is normal in caliber and demonstrates standard 3-vessel arch anatomy. No dissection is seen. Pulmonary vasculature: The pulmonary trunk is normal in caliber. There are no filling defects identified in main or lobar pulmonary branches to suggest pulmonary embolus. The segmental and subsegmental branches are not well assessed due to motion artifact. Heart: A 2-lead cardiac AICD is present in the left chest wall. The patient is status post midline sternotomy. The heart is enlarged and without pericardial effusion. The coronary arteries are densely calcified. Lungs and pleural spaces: Evaluation of the lung parenchyma is compromised by motion artifact. There is moderate emphysema. The trachea and central airways appear clear. No pleural effusion is identified. There is mild patchy nodular airspace consolidation in the left upper lobe, with faint groundglass opacities also seen in the right upper lobe and the superior segment of the right lower lobe. Scarring/atelectasis is seen at the lung bases. There are scattered calcified granulomas. Mediastinum: There is no mediastinal lymphadenopathy. Tammie: Clear. Axillae: There is no axillary lymphadenopathy. Upper abdomen: Partially visualized upper abdominal viscera is within normal limits. Skeletal structures: The skeletal structures are osteopenic. Degenerative change is noted in the shoulders and thoracic spine. There is a minimal chronic superior endplate compression deformity of T4. No lytic or blastic bony lesions are seen. IMPRESSION: 1. Significantly motion compromised examination. 2. There is no evidence of central pulmonary embolus in the main or lobar pulmonary arteries. Evaluation of the segmental and subsegmental branches is significantly compromised by motion artifact. 3. Cardiomegaly and emphysema. 4. There is mild patchy nodular airspace consolidation as above, greatest in the left upper lobe. This is new from 02/08/2021 and typical for an infectious/inflammatory pneumonitis. A follow-up chest CT in 3-4 months time is recommended to document complete resolution. ACT 112: Negative or not required by law. Electronically signed by: Doe Thibodeaux M.D. 02/28/2021 9:50 AM Venous Doppler Study 02/28/21 08:51 ULTRASOUND BILATERAL LOWER EXTREMITY VENOUS CLINICAL HISTORY: Hypoxia. Tachycardia. Clinical concern for deep venous thrombosis. COMPARISON STUDY: No priors. TECHNIQUE: Real-time, grayscale, and color Doppler sonography of the deep veins of the right and left lower extremity was performed from the inguinal crease to the calf. Compression and augmentation were utilized. FINDINGS: There is no sonographic evidence of deep venous thrombosis identified in the right or left lower extremity. The common femoral, superficial femoral, and popliteal veins are patent and normally compressible bilaterally. The greater saphenous vein and the profunda femoris vein at the junction with the common femoral vein are clear in both legs. The visualized calf veins are patent bilaterally. IMPRESSION: There is no sonographic evidence of deep venous thrombosis identified in the right or left lower extremity. ACT 112: Negative or not required by law. Electronically signed by: Doe Thibodeaux M.D. 02/28/2021 9:11 AM PG Care Time/CCT Total # of Minutes Spent Total Time Spent with Patient: Total time spent is greater than 50% in coordination of care (as documented) at patient's floor/unit and/or counseling patient: Coding Level of Care Code 59701 Subseq Obs Care Lvl 3 Diagnoses Fall W19.XXXA Encounter type: initial encounter Tachycardia R00.0 Ulcerative colitis K51.90 GERD (gastroesophageal reflux disease) K21.9 Chronic systolic CHF (congestive heart failure) I50.22 Dementia F03.90 COPD (chronic obstructive pulmonary disease) J44.9 Stented coronary artery Z95.5 S/P CABG x 2 Z95.1 AICD (automatic cardioverter/defibrillator) present Z95.810 Cardiomyopathy I42.9 CAD (coronary artery disease) I25.10 (1) Fall Encounter type: initial encounter Qualified Code(s): W19.XXXA - Unspecified fall, initial encounter
--- NOTE | 2021-02-28 09:12 | Ultrasound Report ---
ULTRASOUND BILATERAL LOWER EXTREMITY VENOUS CLINICAL HISTORY: Hypoxia. Tachycardia. Clinical concern for deep venous thrombosis. COMPARISON STUDY: No priors. TECHNIQUE: Real-time, grayscale, and color Doppler sonography of the deep veins of the right and left lower extremity was performed from the inguinal crease to the calf. Compression and augmentation wer e utilized. FINDINGS: There is no sonographic evidence of deep venous thrombosis identified in the right or left lower extremity. The common femoral, superficial femoral, and popliteal veins are patent and normally compressible bilaterally. The greater saphenous vein and the profunda femoris vein at the junction w ith the common femoral vein are clear in both legs. The visualized calf veins are patent bilaterally. IMPRESSION: There is no sonographic evidence of deep venous thrombosis identified in the right or lef t lower extremity. ACT 112: Negative or not required by law. Electronically signed by: Doe Thibodeaux M.D. 02/28/2021 9:11 AM
[2021-02-28] MEDS ORDERED: OPTIRAY 320 125ml IV ONE (09:35)
--- NOTE | 2021-02-28 09:51 | CT Scan Report ---
CT ANGIOGRAM OF THE CHEST CLINICAL HISTORY: Fall. Elevated d-dimer. Recent Covid. COMPARISON STUDY: Chest x-ray dated 02/27/2021. Chest CT dated 02/08/2021. TECHNIQUE: Following the IV administration of 118 cc of Optiray 320, CT angiogram of the chest was pe rformed from the upper abdomen to the thoracic inlet utilizing the pulmonary embolus protocol. Images are reviewed in the axial, sagittal, and coronal planes. 3-D MIPS images are created and assessed. I V contrast was administered without complication. A dose lowering technique was utilized adhering to the principles of ALARA. CT DOSE: 279.85 mGycm FINDINGS: Thyroid: Imaged portions of the thyroid gland are normal in size and attenuation. Thoracic aorta: There is atherosclerotic calcification of the thoracic aorta, which is normal in johnson flip and demonstrates standard 3-vessel arch anatomy. No dissection is seen. Pulmonary vasculature: The pulmonary trunk is normal in caliber. There are no filling defects identif ied in main or lobar pulmonary branches to suggest pulmonary embolus. The segmental and subsegmental branches are not well assessed due to motion artifact. Heart: A 2-lead cardiac AICD is present in the left chest wall. The patient is status post midline st ernotomy. The heart is enlarged and without pericardial effusion. The coronary arteries are densely c alcified. Lungs and pleural spaces: Evaluation of the lung parenchyma is compromised by motion artifact. There is moderate emphysema. The trachea and central airways appear clear. No pleural effusion is identifie d. There is mild patchy nodular airspace consolidation in the left upper lobe, with faint groundglass opacities also seen in the right upper lobe and the superior segment of the right lower lobe. Scarri ng/atelectasis is seen at the lung bases. There are scattered calcified granulomas. Mediastinum: There is no mediastinal lymphadenopathy. Tammie: Clear. Axillae: There is no axillary lymphadenopathy. Upper abdomen: Partially visualized upper abdominal viscera is within normal limits. Skeletal structures: The skeletal structures are osteopenic. Degenerative change is noted in the shou lders and thoracic spine. There is a minimal chronic superior endplate compression deformity of T4. N o lytic or blastic bony lesions are seen. IMPRESSION: 1. Significantly motion compromised examination. 2. There is no evidence of central pulmonary embolus in the main or lobar pulmonary arteries. Evaluat ion of the segmental and subsegmental branches is significantly compromised by motion artifact. 3. Cardiomegaly and emphysema. 4. There is mild patchy nodular airspace consolidation as above, greatest in the left upper lobe. Thi s is new from 02/08/2021 and typical for an infectious/inflammatory pneumonitis. A follow-up chest CT i n 3-4 months time is recommended to document complete resolution. ACT 112: Negative or not required by law. Electronically signed by: Doe Thibodeaux M.D. 02/28/2021 9:50 AM
[2021-02-28 10:00] LABS: Hematocrit (blood only) 34.8 % (37-47); Hemoglobin 10.9 g/dL (12.0-16.0); Mean Corpuscular Hemoglobin 29.3 pg (25-34); Mean Corpuscular Hgb Conc 31.3 g/dL (32-36); Mean Corpuscular Volume 93.5 fL (80-100); Mean Platelet Volume 9.8 fL (7.4-10.4); Platelet Count 225 K/uL (130-400); RDW Coefficient of Variation 17.1 % (11.5-14.5); RDW Standard Deviation 58.2 fL (36.4-46.3); Red Blood Count 3.72 M/uL (4.2-5.4); White Blood Count 3.27 K/uL (4.8-10.8)
[2021-02-28 10:19] LABS: Calcium 8.7 mg/dl (8.5-10.1); Creatinine Clr Calc Pharmacy 53.5 ml/min; Est GFR (African American) 92.9 ml/min; Est GFR (Non-African American) 80.1 ml/min; Potassium 3.7 mmol/L (3.5-5.1)
[2021-02-28] MEDS: ADVANCED PROBIOTIC 1250 MG CAPSULE PO SCH (11:01)
[2021-02-28] MEDS: ASPIRIN 81 MG ECTAB PO SCH (11:01)
[2021-02-28] MEDS ORDERED: AZITHROMYCIN 250 MG TAB PO ONE (13:32)
[2021-02-28] MEDS ORDERED: CYANOCOBALAMIN 1000 MCG/ML VIAL IM SCH (13:45)
[2021-02-28] MEDS: LORazepam 0.5 MG TAB PO SCH (15:05)
[2021-02-28] MEDS: ATORVASTATIN 40 MG TAB PO SCH (15:06)
[2021-02-28] MEDS: POTASSIUM CHLORIDE CRTAB 20 MEQ TABCR PO SCH (15:09)
[2021-02-28] MEDS ORDERED: THIAMINE HCL 100 MG in SYRINGE 9 ML IV STA (17:00)
[2021-02-28 17:47] LABS: Iron 68 mcg/dl (35-150); Total Iron Binding Cap Calc 319 mcg/dl (250-450); Transferrin 232 mg/dl (200-360); Transferrin (FE) Percent Satur 21 % (15-50); Unsaturated Iron Binding Cap 251 mcg/dl (155-355)
[2021-02-28] MEDS: guaiFENesin 600 MG TABCR PO SCH (20:18)
[2021-02-28] MEDS: QUEtiapine FUMARATE 25 MG TABLET PO SCH (20:18)
[2021-02-28] MEDS: DOCUSATE SODIUM/SENNA 50/8.6MG TAB PO SCH (20:29)
--- NOTE | 2021-02-28 20:40 | Communication Note ---
Date of Service: February 28, 2021 I was called to bedside at 8PM. Patient had fallen and was found lying on floor next to bed by nursing. Patient has baseline dementia. Initially told nurses she did not hit her head but told me that she hit her occiput. This exacerbated her previous head and neck pain. She has full neck ROM but is painful when turning neck to right. Tender to touch at c spine but not at occiput. No mental status change, no numbness/tingling, no weakness of extremities on my exam. Patient is not on anticoagulation. Currently, the pain is milder than initially after the fall. She had head and neck imaging yesterday but in the context of worsened pain after a fall, I will check CT head and c spine without contrast. Continue fall precautions and use of bed alarm.
[2021-02-28] MEDS: MAGNESIUM SULFATE / D5W 1 GM/100 ML BAG IV SCH (22:29)
[2021-02-28] MEDS: ENOXAPARIN INJ 40 MG/0.4 ML SYR SQ SCH (22:30)
[2021-03-01] MEDS: MAGNESIUM SULFATE / D5W 1 GM/100 ML BAG IV SCH (00:21)
[2021-03-01 06:12] LABS: Hematocrit (blood only) 35.5 % (37-47); Hemoglobin 11.4 g/dL (12.0-16.0); Mean Corpuscular Hemoglobin 29.3 pg (25-34); Mean Corpuscular Hgb Conc 32.1 g/dL (32-36); Mean Corpuscular Volume 91.3 fL (80-100); Mean Platelet Volume 9.9 fL (7.4-10.4); Platelet Count 239 K/uL (130-400); RDW Coefficient of Variation 16.9 % (11.5-14.5); RDW Standard Deviation 55.8 fL (36.4-46.3); Red Blood Count 3.89 M/uL (4.2-5.4); White Blood Count 3.79 K/uL (4.8-10.8)
[2021-03-01 06:27] LABS: BUN Creatinine Ratio 16.4 (10-20); Calcium 8.9 mg/dl (8.5-10.1); Creatinine Clr Calc Pharmacy 54.8 ml/min; Est GFR (African American) 94.2 ml/min; Est GFR (Non-African American) 81.3 ml/min; Potassium 3.6 mmol/L (3.5-5.1)
--- NOTE | 2021-03-01 07:05 | CT Scan Report ---
CT SCAN OF THE BRAIN WITHOUT IV CONTRAST CLINICAL HISTORY: Fall. Head injury. COMPARISON STUDY: CT of the brain dated 02/27/2021. TECHNIQUE: Unenhanced axial CT scan of the brain is performed from the vertex to the skull base. A do se lowering technique was utilized adhering to the principles of ALARA. FINDINGS: Brain parenchyma: There are age-related involutional changes noting moderate to advanced confluent s ubcortical and periventricular microangiopathic change. There is no hemorrhage, mass effect, or evide nce of acute territorial ischemia by CT criteria. Apple-white matter differentiation is preserved. No extra-axial fluid collection is seen. Mineralization is noted in the basal ganglia. Ventricles, sulci, cisterns: Prominent secondary to involutional change. Intracranial vasculature: There is atherosclerotic calcification of the cavernous carotid arteries. Calvarium: The skeletal structures are osteopenic. There is no depressed calvarial fracture. Sinuses and mastoids: The visualized paranasal sinuses are clear. The mastoid air cells are well pneu matized. Orbits: The bony orbits are grossly intact. There are bilateral ocular lens implants. IMPRESSION: There is no hemorrhage, mass effect, or evidence of acute territorial ischemia by CT carlos neri. ACT 112: Negative or not required by law. Electronically signed by: Doe Thibodeaux M.D. 03/01/2021 7:04 AM
[2021-03-01] MEDS: FLUTICASONE/VILANTEROL 100/25MCG 14 PUFFS/INHALER INH SCH (07:30)
--- NOTE | 2021-03-01 07:30 | CT Scan Report ---
CT SCAN OF THE CERVICAL SPINE CLINICAL HISTORY: Fall. COMPARISON STUDY: CT of the cervical spine dated 02/27/2021 and 03/28/2020. TECHNIQUE: CT scan of the cervical spine is performed from the skull base to the upper thoracic spine . Images are reviewed in the axial, sagittal, and coronal planes. IV contrast was not administered fo r this examination. A dose lowering technique was utilized adhering to the principles of ALARA. CT DOSE: 985.77 mGy.cm FINDINGS: Skeletal structures: The skeletal structures are osteopenic. There is no evidence of fracture or subl uxation involving the cervical spine. Vertebral body height is maintained. There is minimal anterolis thesis at C3-C4, and minimal retrolisthesis at C4-C5. Alignment is otherwise preserved. Anterior oste ophytes are seen throughout. There is straightening of the cervical lordosis. The odontoid process an d lateral masses are intact. The atlantoaxial articulation is preserved noting productive degenerativ e change. The spinous processes appear intact. There is moderate to advanced multilevel cervical spon dylosis. Uncovertebral and facet arthropathy contribute to neural foraminal narrowing at most levels. Intervertebral discs: There is moderate to advanced disc space narrowing at all cervical levels betwe en C3-C4 and C6-C7. Central canal: Posterior disc osteophyte complexes at C4-C5, C5-C6, and C6-C7 may contribute to acqui red compromise of the central canal. Soft tissues: The prevertebral and paraspinous soft tissues are within normal limits. Pacemaker leads are noted at the left thoracic inlet. There is atherosclerotic calcification of the carotid bulbs. Calvarium: The visualized calvarium at the skull base appears intact. Brain parenchyma: Partially visualized brain parenchyma at the skull base is within normal limits. Sinuses and mastoids: The visualized paranasal sinuses are clear. The mastoid air cells are well pneu matized. Lung apices: Emphysematous change is noted. A 9 mm nodular density is seen at the left apex on image #[id number]. IMPRESSION: 1. There is no evidence of fracture or subluxation involving the cervical spine. 2. Osteopenia and spondylotic change as above. 3. Emphysema. 4. There is a nodular opacity at the left apex which is unchanged from yesterday but new from older p rior studies. This may be on an inflammatory basis. Chest CT follow-up is again recommended to docume nt resolution. ACT 112: Negative or not required by law. Electronically signed by: Doe Thibodeaux M.D. 03/01/2021 7:29 AM
[2021-03-01] MEDS: FUROSEMIDE 40 MG TAB PO SCH (07:31)
[2021-03-01] MEDS: THIAMINE HCL 100 MG in SYRINGE 9 ML IV SCH (07:31)
[2021-03-01] MEDS: guaiFENesin 600 MG TABCR PO SCH ×2 (07:32→20:29)
[2021-03-01] MEDS: SUCRALFATE 1 GM TAB PO SCH ×3 (07:32→20:29)
[2021-03-01] MEDS: PANTOprazole 40 MG TAB PO SCH ×2 (07:32→20:30)
[2021-03-01] MEDS: PARoxetine HCl CONTROLLED REL 12.5 MG TABCR PO SCH (07:33)
[2021-03-01] MEDS: CETIRIZINE HCL 10 MG TABLET PO SCH (07:33)
[2021-03-01] MEDS: lamoTRIgine 100 MG TAB PO SCH ×2 (07:33→20:30)
[2021-03-01] MEDS: MULTIVITAMIN TAB PO SCH (07:33)
[2021-03-01] MEDS: ASPIRIN 81 MG ECTAB PO SCH (07:33)
[2021-03-01] MEDS: AZITHROMYCIN 250 MG TAB PO SCH (07:34)
[2021-03-01] MEDS: BACLOFEN 10 MG TAB PO SCH ×2 (07:40→20:30)
--- NOTE | 2021-03-01 07:51 | Hospitalist Progress Note ---
Date of Service March 01, 2021 Assessment & Plan (1) Fall: Plan: recurrent falls in an 81 yo female with history of dementia. Patient appears that she will ultimately need placement as she does not appear to be safe at home per EMS reported finding patient at end of bed possibly smoking, not wearing supplemental oxygen Recent COVID/Flu admission -->previously completed 10 days dexamethasone and [address] Head * No acute intracranial hemorrhage, evidence of large acute territorial infarction, or other acute intracranial disease process CT Cervical Spine * Degenerative changes without evidence of acute bony injury. 7.5 mm nodule in the right upper lobe. According to Fleischner criteria, CT chest should be performed at 6-12 months. In high-risk patients, a 18-24 month follow-up is recommended, in low-risk patients, this 18-24 month follow-up CT is optional. CTA/P * No evidence of acute abnormalities. In particular no evidence of fractures in this patient with low back pain. CXR * b/l lower lung predominant airspace opacities which may represent atelectasis, pneumonia or aspiration D-dimer positive on admission Venous Dopplers NEGATIVE for DVT Check CTA to r/o PE --> NEGATIVE for PE, but did note: * mild patchy nodular airspace consolidation as above, greatest in the left upper lobe. This is new from 02/08/2021 and typical for an infectious/inflammatory pneumonitis. A follow-up chest CT in 3-4 months time is recommended to document complete resolution. Azithromycin for COPD exacerbation (got last admission, on day 2/5), added mucinex 02/28 -- continue Sputum cx if able to obtain Iron studies wnl, B12 >1500, folate wnl TSH wnl Fall again overnight 02/28 --> repeat CT head and cervical spine --> no acute findings/stroke/fracture Started on empiric thiamine 02/28 --> continue Repeat UA obtained -- did not appear affected, +ketones, no nitrates/leuk est/bacteria Will also check carotid US given +bruits on examination and underlying CAD --> ?if contributing to falls/also with hx dementia (2) Tachycardia: Plan: paroxysmal a fib noted in history, ?unclear why not on anticoagulation ?hx GI bleeding? --> Hx bleeding on plavix 150mg (2 tablets daily) and aspirin but nothing since that time --> has hx parosyxmal afib but has a watchman device per daughter Admitted to tele under OBS due to a brief run of V tach. (noted in communication report --> notified by emergency room physician the patient had an asymptomatic run of what appeared to be a wide-complex tachycardia that self resolved. Patient's chart was reviewed and cardiac enzymes checked initially at time of emergency room visit were negative. No significant electrolyte deficiencies or abnormalities were noted on admission labs. Due to this noted arrhythmia we will upgrade the patient's admission status to telemetry and repeat cardiac enzymes approximately 6 hours from time of initial labs, repeat negative) --> no mag checked on admission, low at 1.6 and ordered 2gm IV last night Repeat wnl On aspirin 81mg daily -- per daughter, she had been providing and patient has been getting Remains sinus tachy on monitor CTA NEGATIVE for PE ?anxiety -- she is very anxious about being in hospital and not wanting to go to rehab as well. 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 checking CTA/venous doppler as above --> negative but does note pulm nodule that will need follow up not on meds (4) GERD (gastroesophageal reflux disease): Plan: continue PPI, also on Carafate (5) Chronic systolic CHF (congestive heart failure): Plan: CAD s/p TX 2004 s/p 2 Intracoronary Stents followed by CABG x 2 Vessels, Ischemic Cardiomyopathy s/p AICD, Chronic Systolic CHF -No records for review -- No evidence of heart failure at this time. -- Continue Lasix 40 mg daily -- Monitor I&O's. Continue ASA (will restart as started last admission, not continued at discharge but daughter did state she does take 81mg daily that she provides for her), atorvastatin (6) Dementia: Plan: supportive care continue Rivastigmine will check B12 as well, TSH wnl on admission (7) COPD (chronic obstructive pulmonary disease): Plan: -- Continue usual inhalers -- breo -- Duoneb nebulizer treatments. -- Continue supplemental O2. --> Last admission 2 step done prior to d/c and no need supplemental O2 at rest, 2L needed with exertion --> wean O2 as tolerated, currently upper 90s on 3L NC titrate as able check iron studies/b12/folate (8) Stented coronary artery: Plan: remains on aspirin daily (9) S/P CABG x 2: Plan: continue home medications (10) AICD (automatic cardioverter/defibrillator) present: Plan: Noted also has watchman device/history of paroxysmal afib (11) Cardiomyopathy: Plan: as above req records from [employer] for more information (12) CAD (coronary artery disease): Plan: continue ASA/statin (13) Hypomagnesemia: Plan: ordered for tachycardia, low 1.6 on 02/28, 2gm IV ordered repeat wnl Plan: PT/OT consults pending -- will likely need rehab/placement as unsafe to return home safely Admission and Anticipated Discharge Date Admission Date: February 27, 2021 Supervising Physician Co-Signing Physician Notes PA Supervision Note: I did not personally see or examine the patient today, but I verified all rivero points of PATRICIA Justice's assessment and plan with the following exceptions/additions: None Subjective patient evaluated this morning had fall last evening -- she denies remembering this and also denied letting nursing overnight contact her daughter regarding such discussed this is reason not safe to return home, but this is patient's ideal wish discussed short term rehab to see if able to make progress and daughter working on addiditonal help at home. she is agreeable to short term rehab denies fever, chills, lightheadedness, dizziness, chest pain, shortness of breath, abdominal pain, nausea or vomiting at this time. she does not like the idea of remaining in the hospital, but discussed once able to get to SNF will arrange and hopefully she will make some improvements started on empiric thiamine yesterday, continued mag was low last evening and replaced --> HRs now low 90s-100s today and overnight Review of Systems Review of Systems: All systems reviewed & are unremarkable except as noted in HPI & below Physical Exam Physical Exam: GENERAL:WD/WN elderly female, laying in bed, no acute distress. On 2L NC with SpO2 96. ENT: mmm, no JVD, +bruit bilaterally CV: regular rhythm, rate 92bpm, no m/r/g, trace b/l edema Resp: much improved, better air movement, less crackles, faint rales to L posterior upper lung field, no wheezing, on 2L NC GI: +BS, soft, non-tender : no dumont MSK: moves all extremities, no calf edema/erythema/tenderness, +paraspinal muscle tenderness Neuro: CN intact grossly, 4/5 strength b/l LE Psych: awake, alert and oriented to self/that she is in the hospital. Not to time/situation. Poor insight. Results & Data Results & Data ([facility]) Vital Signs (Past 12 Hours) Vital Signs Temp Pulse Pulse Resp BP BP Pulse Ox 03/01/21 12:00 36.6 C 79 20 106/70 96 03/01/21 09:39 105 H 03/01/21 08:27 36.7 C 96 H 18 109/78 96 03/01/21 06:02 36.7 C 103 H 18 97/62 L 96 02/28/21 22:44 36.7 C 108 H 18 90/60 L 98 02/28/21 19:42 36.3 C L 107 H 18 117/79 92 02/28/21 16:00 101 H 02/28/21 15:19 36.7 C 105 H 19 118/78 97 Intake and Output 02/28/21 03/01/21 03/01/21 22:59 06:59 14:59 Intake Total 193.333 / 673.333 Balance 193.333 / 423.333 Intake: IV 193.333 / 193.333 Magnesium Sulfate / D5w 1 gm In 193.333 / 193.333 100 ml @ 50 mls/hr IV Q1H CHANA Rx#:[id number] Other: Other Intake Source sips sips # Unmeasured Voids 2 Weight 61.3 kg Weight Measurement Method Built in [facility] Laboratory Results 03/01/21 03/01/21 03/01/21 Range/Units 05:40 05:40 05:40 WBC 3.79 L (4.8-10.8) K/uL RBC 3.89 L (4.2-5.4) M/uL Hgb 11.4 L (12.0-16.0) g/dL Hct 35.5 L (37-47) % MCV 91.3 (80-100) fL MCH 29.3 (25-34) pg MCHC 32.1 (32-36) g/dL RDW Std Deviation 55.8 H (36.4-46.3) fL RDW Coeff of Eirc 16.9 H (11.5-14.5) % Plt Count 239 (130-400) K/uL MPV 9.9 (7.4-10.4) fL Sodium 139 (136-145) mmol/L Potassium 3.6 (3.5-5.1) mmol/L Chloride 103 (98-107) mmol/L Carbon Dioxide 30 (21-32) mmol/L Anion Gap 6 (3-11) BUN 11 (6-23) mg/dl Creatinine 0.67 (0.6-1.2) mg/dl Est Cr Clr Drug Dosing 54.8 ml/min Est GFR ( Amer) 94.2 ml/min Est GFR (Non-Af Amer) 81.3 ml/min BUN/Creatinine Ratio 16.4 (10-20) Glucose 95 (70-99(Fasting)) mg/dl POC Glucose (70-99) mg/dl Calcium 8.9 (8.5-10.1) mg/dl Magnesium (1.7-2.4) mg/dl Iron (35-150) mcg/dl TIBC (250-450) mcg/dl Unsaturated IBC (155-355) mcg/dl Transferrin (200-360) mg/dl Transferrin % Sat (15-50) % Vitamin B12 (211-911) pg/ml Folate > 22.30 (>5.38) ng/ml Nasal Screen MRSA (PCR) (Negative) 02/28/21 02/28/21 02/28/21 Range/Units 15:20 11:25 09:47 WBC (4.8-10.8) K/uL RBC (4.2-5.4) M/uL Hgb (12.0-16.0) g/dL Hct (37-47) % MCV (80-100) fL MCH (25-34) pg MCHC (32-36) g/dL RDW Std Deviation (36.4-46.3) fL RDW Coeff of Eric (11.5-14.5) % Plt Count (130-400) K/uL MPV (7.4-10.4) fL Sodium (136-145) mmol/L Potassium (3.5-5.1) mmol/L Chloride (98-107) mmol/L Carbon Dioxide (21-32) mmol/L Anion Gap (3-11) BUN (6-23) mg/dl Creatinine (0.6-1.2) mg/dl Est Cr Clr Drug Dosing ml/min Est GFR ( Amer) ml/min Est GFR (Non-Af Amer) ml/min BUN/Creatinine Ratio (10-20) Glucose (70-99(Fasting)) mg/dl POC Glucose 116 H (70-99) mg/dl Calcium (8.5-10.1) mg/dl Magnesium 1.6 L (1.7-2.4) mg/dl Iron (35-150) mcg/dl TIBC (250-450) mcg/dl Unsaturated IBC (155-355) mcg/dl Transferrin (200-360) mg/dl Transferrin % Sat (15-50) % Vitamin B12 (211-911) pg/ml Folate (>5.38) ng/ml Nasal Screen MRSA (PCR) Negative (Negative) 02/28/21 02/28/21 02/28/21 Range/Units 09:47 09:47 09:47 WBC (4.8-10.8) K/uL RBC (4.2-5.4) M/uL Hgb (12.0-16.0) g/dL Hct (37-47) % MCV (80-100) fL MCH (25-34) pg MCHC (32-36) g/dL RDW Std Deviation (36.4-46.3) fL RDW Coeff of Eric (11.5-14.5) % Plt Count (130-400) K/uL MPV (7.4-10.4) fL Sodium 136 (136-145) mmol/L Potassium 3.7 (3.5-5.1) mmol/L Chloride 100 (98-107) mmol/L Carbon Dioxide 31 (21-32) mmol/L Anion Gap 5 (3-11) BUN 14 (6-23) mg/dl Creatinine 0.70 (0.6-1.2) mg/dl Est Cr Clr Drug Dosing 53.5 ml/min Est GFR ( Amer) 92.9 ml/min Est GFR (Non-Af Amer) 80.1 ml/min BUN/Creatinine Ratio 20.0 (10-20) Glucose 137 H (70-99(Fasting)) mg/dl POC Glucose (70-99) mg/dl Calcium 8.7 (8.5-10.1) mg/dl Magnesium (1.7-2.4) mg/dl Iron 68 (35-150) mcg/dl TIBC 319 (250-450) mcg/dl Unsaturated IBC 251 (155-355) mcg/dl Transferrin 232 (200-360) mg/dl Transferrin % Sat 21 (15-50) % Vitamin B12 > 1500 H (211-911) pg/ml Folate (>5.38) ng/ml Nasal Screen MRSA (PCR) (Negative) 02/28/21 Range/Units 09:47 WBC 3.27 L (4.8-10.8) K/uL RBC 3.72 L (4.2-5.4) M/uL Hgb 10.9 L (12.0-16.0) g/dL Hct 34.8 L (37-47) % MCV 93.5 (80-100) fL MCH 29.3 (25-34) pg MCHC 31.3 L (32-36) g/dL RDW Std Deviation 58.2 H (36.4-46.3) fL RDW Coeff of Eric 17.1 H (11.5-14.5) % Plt Count 225 (130-400) K/uL MPV 9.8 (7.4-10.4) fL Sodium (136-145) mmol/L Potassium (3.5-5.1) mmol/L Chloride (98-107) mmol/L Carbon Dioxide (21-32) mmol/L Anion Gap (3-11) BUN (6-23) mg/dl Creatinine (0.6-1.2) mg/dl Est Cr Clr Drug Dosing ml/min Est GFR ( Amer) ml/min Est GFR (Non-Af Amer) ml/min BUN/Creatinine Ratio (10-20) Glucose (70-99(Fasting)) mg/dl POC Glucose (70-99) mg/dl Calcium (8.5-10.1) mg/dl Magnesium (1.7-2.4) mg/dl Iron (35-150) mcg/dl TIBC (250-450) mcg/dl Unsaturated IBC (155-355) mcg/dl Transferrin (200-360) mg/dl Transferrin % Sat (15-50) % Vitamin B12 (211-911) pg/ml Folate (>5.38) ng/ml Nasal Screen MRSA (PCR) (Negative) Diagnostic Findings Cervical Spine CT 02/28/21 20:40 CT SCAN OF THE CERVICAL SPINE CLINICAL HISTORY: Fall. COMPARISON STUDY: CT of the cervical spine dated 02/27/2021 and 03/28/2020. TECHNIQUE: CT scan of the cervical spine is performed from the skull base to the upper thoracic spine. Images are reviewed in the axial, sagittal, and coronal planes. IV contrast was not administered for this examination. A dose lowering technique was utilized adhering to the principles of ALARA. CT DOSE: 985.77 mGy.cm FINDINGS: Skeletal structures: The skeletal structures are osteopenic. There is no evidence of fracture or subluxation involving the cervical spine. Vertebral body height is maintained. There is minimal anterolisthesis at C3-C4, and minimal retrolisthesis at C4-C5. Alignment is otherwise preserved. Anterior osteophytes are seen throughout. There is straightening of the cervical lordosis. The odontoid process and lateral masses are intact. The atlantoaxial articulation is preserved noting productive degenerative change. The spinous processes appear intact. There is moderate to advanced multilevel cervical spondylosis. Uncovertebral and facet arthropathy contribute to neural foraminal narrowing at most levels. Intervertebral discs: There is moderate to advanced disc space narrowing at all cervical levels between C3-C4 and C6-C7. Central canal: Posterior disc osteophyte complexes at C4-C5, C5-C6, and C6-C7 may contribute to acquired compromise of the central canal. Soft tissues: The prevertebral and paraspinous soft tissues are within normal limits. Pacemaker leads are noted at the left thoracic inlet. There is atherosclerotic calcification of the carotid bulbs. Calvarium: The visualized calvarium at the skull base appears intact. Brain parenchyma: Partially visualized brain parenchyma at the skull base is within normal limits. Sinuses and mastoids: The visualized paranasal sinuses are clear. The mastoid air cells are well pneumatized. Lung apices: Emphysematous change is noted. A 9 mm nodular density is seen at the left apex on image #[id number]. IMPRESSION: 1. There is no evidence of fracture or subluxation involving the cervical spine. 2. Osteopenia and spondylotic change as above. 3. Emphysema. 4. There is a nodular opacity at the left apex which is unchanged from yesterday but new from older prior studies. This may be on an inflammatory basis. Chest CT follow-up is again recommended to document resolution. ACT 112: Negative or not required by law. Electronically signed by: Doe Thibodeaux M.D. 03/01/2021 7:[address] 02/28/21 20:40 CT SCAN OF THE BRAIN WITHOUT IV CONTRAST CLINICAL HISTORY: Fall. Head injury. COMPARISON STUDY: CT of the brain dated 02/27/2021. TECHNIQUE: Unenhanced axial CT scan of the brain is performed from the vertex to the skull base. A dose lowering technique was utilized adhering to the principles of ALARA. FINDINGS: Brain parenchyma: There are age-related involutional changes noting moderate to advanced confluent subcortical and periventricular microangiopathic change. There is no hemorrhage, mass effect, or evidence of acute territorial ischemia by CT criteria. Apple-white matter differentiation is preserved. No extra-axial fluid collection is seen. Mineralization is noted in the basal ganglia. Ventricles, sulci, cisterns: Prominent secondary to involutional change. Intracranial vasculature: There is atherosclerotic calcification of the cavernous carotid arteries. Calvarium: The skeletal structures are osteopenic. There is no depressed calvarial fracture. Sinuses and mastoids: The visualized paranasal sinuses are clear. The mastoid air cells are well pneumatized. Orbits: The bony orbits are grossly intact. There are bilateral ocular lens implants. IMPRESSION: There is no hemorrhage, mass effect, or evidence of acute territorial ischemia by CT criteria. ACT 112: Negative or not required by law. Electronically signed by: Doe Thibodeaux M.D. 03/01/2021 7:04 AM PG Care Time/CCT Total # of Minutes Spent Total Time Spent with Patient: Total time spent is greater than 50% in coordination of care (as documented) at patient's floor/unit and/or counseling patient: Coding Level of Care Code 48018 Subseq Hosp Care Lvl 3 Diagnoses Fall W19.XXXA Encounter type: initial encounter Tachycardia R00.0 Ulcerative colitis K51.90 GERD (gastroesophageal reflux disease) K21.9 Chronic systolic CHF (congestive heart failure) I50.22 Dementia F03.90 COPD (chronic obstructive pulmonary disease) J44.9 Stented coronary artery Z95.5 S/P CABG x 2 Z95.1 AICD (automatic cardioverter/defibrillator) present Z95.810 Cardiomyopathy I42.9 CAD (coronary artery disease) I25.10 Hypomagnesemia E83.42 (1) Fall Encounter type: initial encounter Qualified Code(s): W19.XXXA - Unspecified fall, initial encounter
[2021-03-01 09:22] LABS: Appearance Urine Clear (Clear); Bilirubin Urine Negative (Negative); Blood Urine Negative (Negative); Color Urine Dark Yellow; Glucose Urine UA Negative (Negative); Ketones Urine Trace (Negative); Leukocyte Esterase Urine Negative (Negative); Nitrite Urine Negative (Negative); Protein Urine Negative (Negative); Specific Gravity Urine > 1.045 (1.000-1.030); Urobilinogen Urine Negative (Negative)
[2021-03-01] MEDS: ADVANCED PROBIOTIC 1250 MG CAPSULE PO SCH (12:01)
--- NOTE | 2021-03-01 14:42 | Ultrasound Report ---
US carotid doppler BI CLINICAL HISTORY: 81 years-old Female with falls, hx CEA. Follow-up study in a patient with history of prior stroke COMPARISON: Head CT 02/28/2021 TECHNIQUE: Multiple real time sonographic images of the carotid bifurcations were obtained assessing mancini scale, color Doppler and spectral wave form appearance FINDINGS: RIGHT CAROTID: The peak systolic velocity measured within the right ICA is76 cm/sec. The end diasto lic velocity measured 28 cm/sec. The ICA to CCA ratio measured 2.7 which correlates with a stenosis of 0-50%. Moderate atherosclerotic plaque of the right carotid bulb and proximal right ICA. LEFT CAROTID: The peak systolic velocity measured within the left ICA is82 cm/sec. The end diastoli c velocity measured 18 cm/sec. The ICA to CCA ratio measured 1.5 which correlates with a stenosis of 0-50%. Moderate atherosclerotic plaque of the left carotid bulb and proximal left ICA. There is normal antegrade vertebral flow bilaterally. IMPRESSION: 1. Moderate atherosclerosis without hemodynamically significant stenosis. 2. Normal antegrade vertebral flow bilaterally. ACT 112: Negative or not required by law. The above report was generated using voice recognition software. It may contain grammatical, syntax o r spelling errors. Electronically signed by: Monster Viera M.D. 03/01/2021 2:41 PM
[2021-03-01] MEDS: ATORVASTATIN 40 MG TAB PO SCH (15:43)
[2021-03-01] MEDS: LORazepam 0.5 MG TAB PO SCH (15:43)
[2021-03-01] MEDS: POTASSIUM CHLORIDE CRTAB 20 MEQ TABCR PO SCH (15:46)
[2021-03-01] MEDS: DOCUSATE SODIUM/SENNA 50/8.6MG TAB PO SCH (20:28)
[2021-03-01] MEDS: ENOXAPARIN INJ 40 MG/0.4 ML SYR SQ SCH (20:28)
[2021-03-01] MEDS: QUEtiapine FUMARATE 25 MG TABLET PO SCH (20:29)
[2021-03-02 07:20] LABS: Estimated Average Glucose 137 mg/dl; Hemoglobin A1C 6.4 % (4.5-5.6)
[2021-03-02] MEDS: FLUTICASONE/VILANTEROL 100/25MCG 14 PUFFS/INHALER INH SCH (08:16)
[2021-03-02] MEDS: PANTOprazole 40 MG TAB PO SCH ×2 (08:16→20:12)
[2021-03-02] MEDS: PARoxetine HCl CONTROLLED REL 12.5 MG TABCR PO SCH (08:16)
[2021-03-02] MEDS: SUCRALFATE 1 GM TAB PO SCH ×3 (08:16→20:15)
[2021-03-02] MEDS: FUROSEMIDE 40 MG TAB PO SCH (08:17)
[2021-03-02] MEDS: lamoTRIgine 100 MG TAB PO SCH ×2 (08:17→20:12)
[2021-03-02] MEDS: ASPIRIN 81 MG ECTAB PO SCH (08:17)
[2021-03-02] MEDS: guaiFENesin 600 MG TABCR PO SCH ×2 (08:17→20:12)
[2021-03-02] MEDS: THIAMINE HCL 100 MG in SYRINGE 9 ML IV SCH (08:17)
[2021-03-02] MEDS: AZITHROMYCIN 250 MG TAB PO SCH (08:17)
[2021-03-02] MEDS: CETIRIZINE HCL 10 MG TABLET PO SCH (08:17)
[2021-03-02] MEDS: MULTIVITAMIN TAB PO SCH (08:17)
--- NOTE | 2021-03-02 09:02 | Hospitalist Progress Note ---
Date of Service March 02, 2021 Assessment & Plan (1) Fall: Plan: recurrent falls in an 81 yo female with history of dementia. Patient appears that she will ultimately need placement as she does not appear to be safe at home per EMS reported finding patient at end of bed possibly smoking, not wearing supplemental oxygen Recent COVID/Flu admission -->previously completed 10 days dexamethasone and [address] Head * No acute intracranial hemorrhage, evidence of large acute territorial infarction, or other acute intracranial disease process CT Cervical Spine * Degenerative changes without evidence of acute bony injury. 7.5 mm nodule in the right upper lobe. According to Fleischner criteria, CT chest should be performed at 6-12 months. In high-risk patients, a 18-24 month follow-up is recommended, in low-risk patients, this 18-24 month follow-up CT is optional. CTA/P * No evidence of acute abnormalities. In particular no evidence of fractures in this patient with low back pain. CXR * b/l lower lung predominant airspace opacities which may represent atelectasis, pneumonia or aspiration D-dimer positive on admission Venous Dopplers NEGATIVE for DVT Check CTA to r/o PE --> NEGATIVE for PE, but did note: * mild patchy nodular airspace consolidation as above, greatest in the left upper lobe. This is new from 02/08/2021 and typical for an infectious/inflammatory pneumonitis. A follow-up chest CT in 3-4 months time is recommended to document complete resolution. Azithromycin for COPD exacerbation (got last admission, on day 3/5), added mucinex 02/28 -- continue Sputum cx if able to obtain Iron studies wnl, B12 >1500, folate wnl TSH wnl Fall again overnight 02/28 --> repeat CT head and cervical spine --> no acute findings/stroke/fracture Started on empiric thiamine 02/28 --> continue Repeat UA obtained -- did not appear affected, +ketones, no nitrates/leuk est/bacteria Carotid dopplers NEGATIVE for significant stenosis Awaiting placement -- daughter to call CM back today after reviewing options provided last night Pacemaker interrogation to be done this afternoon to see if possibly contributing to falls -- no arrythmia on monitor and rates have been in the 90s (with exception of low 100 this aftenoon after room change) (2) Tachycardia: Plan: paroxysmal a fib noted in history, ?unclear why not on anticoagulation ?hx GI bleeding? --> Hx bleeding on plavix 150mg (2 tablets daily) and aspirin but nothing since that time --> has hx parosyxmal afib but has a watchman device per daughter Admitted to tele under OBS due to a brief run of V tach. (noted in communication report --> notified by emergency room physician the patient had an asymptomatic run of what appeared to be a wide-complex tachycardia that self resolved. Patient's chart was reviewed and cardiac enzymes checked initially at time of emergency room visit were negative. No significant electrolyte deficiencies or abnormalities were noted on admission labs. Due to this noted arrhythmia we will upgrade the patient's admission status to telemetry and repeat cardiac enzymes approximately 6 hours from time of initial labs, repeat negative) --> no mag checked on admission, low at 1.6 and ordered 2gm IV--> repeat wnl and remains stable On aspirin 81mg daily -- per daughter, she had been providing and patient has been getting Remains sinus tachy on monitor CTA NEGATIVE for PE ?anxiety -- she is very anxious about being in hospital and not wanting to go to rehab as well. However, daughter states this has been chronic issue Not on BB --> will request records from her bacon slicer in [place] for more information. still have not received Monitor on telemetry -- no further episodes of wide complex tachy (on admission, self-resolved, also replaced mag) --> Has been running 90s overnight into this morning, currently in 90s -Add metoprolol succinate 25 mg once daily (3) Ulcerative colitis: Plan: hx of such, increased risk of clotting. checking CTA/venous doppler as above --> negative but does note pulm nodule that will need follow up not on meds (4) GERD (gastroesophageal reflux disease): Plan: continue PPI, also on Carafate (5) Chronic systolic CHF (congestive heart failure): Plan: CAD s/p HI 2004 s/p 2 Intracoronary Stents followed by CABG x 2 Vessels, Ischemic Cardiomyopathy s/p AICD, Chronic Systolic CHF -No records for review -- No evidence of heart failure at this time. -- Continue Lasix 40 mg daily -- Monitor I&O's. Continue ASA (will restart as started last admission, not continued at discharge but daughter did state she does take 81mg daily that she provides for her), atorvastatin (6) Dementia: Plan: supportive care continue Rivastigmine No def in B12/TSH (7) COPD (chronic obstructive pulmonary disease): Plan: -- Continue usual inhalers -- breo -- Duoneb nebulizer treatments. -- Continue supplemental O2. --> Last admission 2 step done prior to d/c and no need supplemental O2 at rest, 2L needed with exertion --> wean O2 as tolerated, currently upper 97s on 2L NC --> asked RN to wean while at rest as does not need and given underlying COPD should not be 97% on 2L while in bed resting titrate as able checked iron studies/b12/folate -- no deficiency (8) Stented coronary artery: Plan: remains on aspirin daily per daughter. recs from [place] not yet obtained (9) S/P CABG x 2: Plan: continue home medications (10) AICD (automatic cardioverter/defibrillator) present: Plan: Noted also has watchman device/history of paroxysmal afib (11) Cardiomyopathy: Plan: as above req'd records from [facility] for more information (12) CAD (coronary artery disease): Plan: continue ASA/statin (13) Hypomagnesemia: Plan: ordered for tachycardia, low 1.6 on 02/28, 2gm IV ordered repeat wnl Plan: PT/OT consults pending -- will likely need rehab/placement as unsafe to return home safely CM discussion with daughter and she is to call back later today to discuss other option. centre care without bed likely the rest of the week, but if no other options will reach back on sunday if no arrythmia on monitor/pacer interrogation can consider moving off tele later today Admission and Anticipated Discharge Date Admission Date: March 01, 2021 Supervising Physician Co-Signing Physician Notes PA Supervision Note: I did not personally see or examine the patient today, but I verified all rivero points of PATRICIA Justice's assessment and plan with the following exceptions/additions: None Subjective patient eval this afternoon changed rooms no issues currently, no increased pain continues to decline falling but discussed looking into rehabs. updated daughter on phone last evening -- she was to review placement options and call CM today to discuss alternative options.of note, daughter confirmed patient to only be on ASA daily, not plavix at all per cards [place] pacemaker rep contacted for interrogation as not reading/?any issues contributing to current fall. Review of Systems Review of Systems: All systems reviewed & are unremarkable except as noted in HPI & below Physical Exam Physical Exam: GENERAL:WD/WN elderly female, laying in bed, no acute distress. On 2L NC with SpO2 97. ENT: mmm, no JVD, +bruit bilaterally CV: regular rhythm, rate 86bpm, no m/r/g, trace b/l edema Resp: much improved, better air movement, less crackles, faint rales to L posterior upper lung field, no wheezing, on 2L NC GI: +BS, soft, non-tender : no dumont MSK: moves all extremities, no calf edema/erythema/tenderness, +paraspinal muscle tenderness Neuro: CN intact grossly, 4/5 strength b/l LE, poor gait/balance Psych: awake, alert and oriented to self/that she is in the hospital. Not to time/situation. Poor insight. Results & Data Results & Data ([facility]) Vital Signs (Past 12 Hours) Vital Signs Temp Pulse Pulse Resp BP BP Pulse Ox 03/02/21 07:59 37.1 C 89 18 115/71 93 03/02/21 07:58 92 H 03/02/21 04:25 37.1 C 92 H 18 110/69 93 03/02/21 00:07 36.8 C 88 18 99/54 L 96 Laboratory Results 03/02/21 03/01/21 03/01/21 Range/Units 05:40 08:50 05:40 Estimat Average Glucose 137 mg/dl Hemoglobin A1c 6.4 H (4.5-5.6) % Magnesium 2.4 (1.7-2.4) mg/dl Urine Color Dark Yellow Urine Appearance Clear (Clear) Urine pH 5.0 (4.5-7.5) Ur Specific [place] > 1.045 H (1.000-1.030) Urine Protein Negative (Negative) Urine Glucose (UA) Negative (Negative) Urine Ketones Trace H (Negative) Urine Blood Negative (Negative) Urine Nitrite Negative (Negative) Urine Bilirubin Negative (Negative) Urine Urobilinogen Negative (Negative) Ur Leukocyte Esterase Negative (Negative) PG Care Time/CCT Total # of Minutes Spent Total Time Spent with Patient: Total time spent is greater than 50% in coordination of care (as documented) at patient's floor/unit and/or counseling patient: Coding Level of Care Code 83709 Subseq Hosp Care Lvl 2 Diagnoses Fall W19.XXXA Encounter type: initial encounter Tachycardia R00.0 Ulcerative colitis K51.90 GERD (gastroesophageal reflux disease) K21.9 Chronic systolic CHF (congestive heart failure) I50.22 Dementia F03.90 COPD (chronic obstructive pulmonary disease) J44.9 Stented coronary artery Z95.5 S/P CABG x 2 Z95.1 AICD (automatic cardioverter/defibrillator) present Z95.810 Cardiomyopathy I42.9 CAD (coronary artery disease) I25.10 Hypomagnesemia E83.42 (1) Fall Encounter type: initial encounter Qualified Code(s): W19.XXXA - Unspecified fall, initial encounter
[2021-03-02] MEDS: BACLOFEN 10 MG TAB PO SCH ×2 (10:27→21:44)
[2021-03-02] MEDS: ADVANCED PROBIOTIC 1250 MG CAPSULE PO SCH (12:48)
--- NOTE | 2021-03-02 14:07 | Cardiology Consultation ---
Date of Consultation March 02, 2021 Assessment & Plan (1) Paroxysmal atrial fibrillation: (2) AICD (automatic cardioverter/defibrillator) present: (3) Cardiomyopathy: (4) CAD (coronary artery disease): (5) Mitral regurgitation: 1. Cardiomyopathy: She has a history of coronary artery disease. There was some mention in her record of her LV dysfunction being nonischemic in nature. She has been revascularized. She is not on guideline directed medical therapy at the time of this admission. Her records report a history of metoprolol use. No TOSHIA-inhibitor was listed on her prior medicine list. I suspect this was related to a history of hypotension and falls. She seems well compensated currently. Lung examination is benign. She is lying flat. She be continued on her current dose of diuretic. I would add metoprolol succinate 25 mg daily. 2. Normally functioning dual-chamber [employer] ICD: Normal longevity. 3. Atrial fibrillation: This is reported in her record. Does not appear that she has had any documented atrial fibrillation in some time. She did undergo implantation a Watchman left atrial appendage occlusion device. This obviates the need for systemic anticoagulation. No recent episodes of atrial fibrillation recorded on her device interrogation. 4. Mitral regurgitation: Mild to moderate. 5. Coronary artery disease: She had a catheterization performed just over a year ago. Patent bypass grafts. No new obstructive lesions. Not currently manifesting symptoms of angina or coronary insufficiency. She should continue aggressive secondary prevention with high-dose atorvastatin and a daily aspirin. 6. Ventricular tachycardia: Nonsustained VT noted in the emergency room. This was also recorded on her device. She did have 1 episode of wide complex tachycardia on February 07 that resolved spontaneously. We will restart her beta-blockade 7. Falls: Does not appear that any particular arrhythmia is responsible for her falls. 8. Recent NSTEMI: This was in the setting of an acute respiratory process. This was not felt to represent an acute coronary syndrome. Continued daily aspirin and management of her comorbidities would be the preferred strategy. Her current dose of diuretic, continue atorvastatin and daily baby aspirin. Would reinstitute metoprolol succinate 25 mg daily. She can follow-up with her regular director validation at some point after discharge. History of Present Illness Reason for Consultation: Sinus tachycardia Requesting Physician: mitchell Attending Physician: Sumi Jaffe MD History of Present Illness The patient is an 81-year-old woman with an extensive cardiac history to include coronary artery disease status post surgical revascularization, reduced LV systolic function, paroxysmal atrial fibrillation, mild to moderate mitral regurgitation, prior implantation of Watchman device and dual-chamber [employer] ICD. She was brought to the hospital after being found on the ground at home. The patient states that she laid on the floor to sleep, but there was some concern that she had fallen. Apparently she has a history of falls. The patient states that she is normally ambulatory but unsteady on her feet. She generally uses a walker at home for ambulation. She did not endorse symptoms of dizziness or lightheadedness. She did not endorse breathing difficulty. She denies orthopnea. She did not report chest pains. She has not been aware of any palpitations. She denies any history of syncope. She has not noticed any swelling in her lower extremities. Currently she claims to be feeling well and wishes to go home. Allergies Allergy/AdvReac Type Severity Reaction Status Date / Time No Known Allergies Allergy Verified 02/08/21 12:09 Home Medications Medication Instructions Recorded Confirmed Type Lactobac 51-Bifidobac 1 cap PO DAILY@1200 03/28/20 02/27/21 History 3-L.lactis-S.thermophilus 4 billion cell capsule (Daily Probiotic (10 Strains)) atorvastatin 40 mg tablet 40 mg PO DAILY@1500 03/28/20 02/27/21 History biotin 10,000 mcg capsule 10,000 mcg PO DAILY 03/28/20 02/27/21 History cetirizine 10 mg tablet 10 mg PO QAM 03/28/20 02/27/21 History cyanocobalamin (vitamin B-12) 5,000 mcg PO QAM 03/28/20 02/27/21 History 5,000 mcg sublingual tablet (Vitamin B-12) furosemide 40 mg tablet 40 mg PO QAM 03/28/20 02/27/21 History lamotrigine 100 mg tablet 100 mg PO AMHS 03/28/20 02/27/21 History lorazepam 0.5 mg tablet 0.5 mg PO DAILY@1500 03/28/20 02/27/21 History multivitamin with calcium and 1 tab PO DAILY 03/28/20 02/27/21 History minerals-folic acid 200 mcg tablet (One-A-Day Proactive 65 Plus) naloxegol 25 mg tablet (Movantik) 25 mg PO QAM 03/28/20 02/27/21 History omeprazole 20 mg capsule,delayed 20 mg PO BID 03/28/20 02/27/21 History release oxycodone-acetaminophen 10 mg-325 1 tab PO QID PRN 03/28/20 02/27/21 History mg tablet potassium chloride 20 mEq 20 meq PO DAILY@1500 03/28/20 02/27/21 History tablet,extended release(part/cryst) rivastigmine 1 patch TRANSDERMAL DAILY 03/28/20 02/27/21 History sennosides 8.6 mg-docusate sodium 1 tab PO HS 03/28/20 02/27/21 History 50 mg tablet (Stool Softener-Laxative) baclofen 10 mg tablet 10 mg PO BID 02/08/21 02/27/21 History fluticasone furoate 100 1 inh INHALATION DAILY 02/08/21 02/27/21 History mcg-vilanterol 25 mcg/dose inhalation powder (Breo Ellipta) fluticasone propionate 50 2 spray INTRANASAL DAILY PRN 02/08/21 02/27/21 History mcg/actuation nasal spray,suspension paroxetine HCl 37.5 mg 37.5 mg PO DAILY 02/08/21 02/27/21 History tablet,extended release 24 hr quetiapine 25 mg tablet 50 mg PO HS 02/08/21 02/27/21 History sucralfate 1 gram tablet 1 g PO TID 02/27/21 02/27/21 History Patient History Medical History Arthritis Chronic back pain Chronic systolic CHF (congestive heart failure) Dementia Depression GERD (gastroesophageal reflux disease) Goiter, nodular Hypokalemia Myocardial infarction Nephrolithiasis Paroxysmal atrial fibrillation Peripheral neuropathy Ulcerative colitis UTI (urinary tract infection) Surgical History AICD (automatic cardioverter/defibrillator) present Hx of cholecystectomy Social History Smoking Status: Former smoker Tobacco Type: Cigarettes Cigarettes Per Day: 1 pack per day; Smoking End Date: approx August 2020; Second Hand Exposure: No; Tobacco Cessation Education Requested by Patient: No Hx Alcohol Use: No Hx Substance Use: No Preferred Language: Northern Irish Communication Ability: Effective Medical Doctor Md Required: No Beliefs That Will Affect Care: None Current Living Situation: Alone and Other Current Living Situation Comment: Caregivers, see CM note in EHR current occupational status: retired How many Children do You have: 3 Other Information That Helps Us Care for You: Yes ( approx 2019) Feels Safe at Home: Yes Safety Concerns: Feels Safe At This Time Assistive Devices: Oxygen - Continuous and Walker Assistive Devices Comment: Upper dentures not in room 303, Pt thinks they are still at home Review of Systems Review of Systems: Per HPI Physical Exam 2 Physical Exam: She is alert and oriented to person. She answer questions appropriately. She was forgetful at times. HEENT: Sclerae are anicteric. Pupils are equal and reactive to light and accommodation. Extraocular movements were intact. Neuro: Cranial nerves intact Lungs: Lungs are clear to auscultation bilaterally. There are no rales wheezes or rhonchi. She has normal respiratory effort without use of accessory muscles. There is normal pulmonary excursion. Cardiac: The rhythm was regular. S1 and S2 were normal. Soft holosystolic murmur. The PMI was not markedly displaced on palpation. Chest: Well-healed sternotomy scar. Abdomen: The abdomen was soft and nontender. Extremities: Patient has bilateral radial pulses that are equal in intensity. There is no evidence cyanosis or clubbing. There was no evidence of significant peripheral edema bilaterally. Skin: There are no rashes noted on examination today. Results & Data ([facility]) Vital Signs (Past 12 Hours) Vital Signs Temp Pulse Pulse Resp BP BP Pulse Ox 03/02/21 12:00 36.8 C 74 18 141/73 H 97 03/02/21 07:59 37.1 C 89 18 115/71 93 03/02/21 07:58 92 H 03/02/21 04:25 37.1 C 92 H 18 110/69 93 Laboratory Results Abnormal Lab Results 03/02/21 05:40 Estimat Average Glucose 137 Hemoglobin A1c 6.4 H Diagnostic Findings I performed a complete interrogation of her dual-chamber [employer] ICD. Estimated longevity of 4.5 years. Normal sensing and threshold parameters on the atrial ventricular leads. She did have several arrhythmias recorded. Most of these represent sinus tachycardia. There were 2 episodes, 1 occurred on February 27 and represented an episode of nonsustained ventricular tachycardia. One episode occurred on February 07 and represented polymorphic ventricular tachycardia versus VF that resolved spontaneously. Coronary bypass grafting 2005, saphenous vein graft to OM and saphenous vein graft to right coronary artery Cardiac catheterization 12/2019: Ejection fraction 25-30%. Normal left main. 70% proximal OM1 with patent graft, 80% proximal RCA with patent graft, nonobstructive disease in left anterior descending Echocardiogram 10/2020: Ejection fraction 25-30%, [id number] mitral regurgitation Echocardiogram 11/2019: Ejection fraction 30 35%, [id number] mitral regurgitation Watchman implantation 08/2019 PG Care Time/CCT Total # of Minutes Spent Total Time Spent with Patient: Total time spent is greater than 50% in coordination of care (as documented) at patient's floor/unit and/or counseling patient: Coding Level of Care Code 30636 Initial Inpt Care Lvl 3 Diagnoses Paroxysmal atrial fibrillation I48.0 AICD (automatic cardioverter/defibrillator) present Z95.810 Cardiomyopathy I42.9 CAD (coronary artery disease) I25.10 Mitral regurgitation I34.0
[2021-03-02] MEDS: ATORVASTATIN 40 MG TAB PO SCH (15:49)
[2021-03-02] MEDS: POTASSIUM CHLORIDE CRTAB 20 MEQ TABCR PO SCH (15:52)
[2021-03-02] MEDS: LORazepam 0.5 MG TAB PO SCH (15:52)
[2021-03-02] MEDS: METOPROLOL SUCC 25MG EXT REL TAB PO SCH (15:52)
[2021-03-02] MEDS ORDERED: FLUTICASONE PROPIONATE NA SPR 16 GM BTL NAE PRN (18:06)
[2021-03-02] MEDS: QUEtiapine FUMARATE 25 MG TABLET PO SCH (20:12)
[2021-03-02] MEDS: ENOXAPARIN INJ 40 MG/0.4 ML SYR SQ SCH (20:15)
[2021-03-02] MEDS: DOCUSATE SODIUM/SENNA 50/8.6MG TAB PO SCH (20:17)
[2021-03-03 06:33] LABS: Basophils # (auto) 0.01 K/uL (0-0.2); Basophils % (auto) 0.3 %; Eosinophils # (auto) 0.04 K/uL (0-0.5); Eosinophils % (auto) 1.1 %; Hematocrit (blood only) 34.8 % (37-47); Immature Granulocytes # (auto) 0.01 K/uL (0.00-0.02); Immature Granulocytes % (auto) 0.3 %; Lymphocytes # (auto) 1.03 K/uL (1.2-3.4); Lymphocytes % (auto) 29.4 %; Mean Corpuscular Hemoglobin 29.3 pg (25-34); Mean Corpuscular Hgb Conc 31.6 g/dL (32-36); Mean Corpuscular Volume 92.8 fL (80-100); Monocytes # (auto) 0.57 K/uL (0.11-0.59); Monocytes % (auto) 16.3 %; Neutrophils # (auto) 1.84 K/uL (1.4-6.5); Neutrophils % (auto) 52.6 %; Platelet Count 215 K/uL (130-400); RDW Standard Deviation 57.7 fL (36.4-46.3); Red Blood Count 3.75 M/uL (4.2-5.4)
[2021-03-03 06:57] LABS: BUN Creatinine Ratio 15.7 (10-20); Calcium 8.6 mg/dl (8.5-10.1); Creatinine Clr Calc Pharmacy 48.2 ml/min; Est GFR (African American) 92.9 ml/min; Est GFR (Non-African American) 80.1 ml/min; Magnesium 1.9 mg/dl (1.7-2.4); Potassium 3.6 mmol/L (3.5-5.1)
--- NOTE | 2021-03-03 08:39 | Hospitalist Progress Note ---
Date of Service March 03, 2021 Assessment & Plan (1) Fall: Plan: recurrent falls in an 81 yo female with history of dementia. Patient appears that she will ultimately need placement as she does not appear to be safe at home per EMS reported finding patient at end of bed possibly smoking, not wearing supplemental oxygen Recent COVID/Flu admission -->previously completed 10 days dexamethasone and [address] Head - No acute intracranial hemorrhage, evidence of large acute territorial infarction, or other acute intracranial disease process CT Cervical Spine - Degenerative changes without evidence of acute bony injury. 7.5 mm nodule in the right upper lobe. According to Fleischner criteria, CT chest should be performed at 6-12 months. In high-risk patients, a 18-24 month follow-up is recommended, in low-risk patients, this 18-24 month follow-up CT is optional. CTA/P No evidence of acute abnormalities. In particular no evidence of fractures in this patient with low back pain. CXR b/l lower lung predominant airspace opacities which may represent atelectasis, pneumonia or aspiration D-dimer positive on admission Venous Dopplers NEGATIVE for DVT Check CTA to r/o PE --> NEGATIVE for PE, but did note: mild patchy nodular airspace consolidation as above, greatest in the left upper lobe. This is new from 02/08/2021 and typical for an infectious/inflammatory pneumonitis. A follow- up chest CT in 3-4 months time is recommended to document complete resolution. Azithromycin for COPD exacerbation (got last admission, on day 4/5), added mucinex 02/28 -- continue Iron studies wnl, B12 >1500, folate wnl TSH wnl Fall again overnight 02/28 --> repeat CT head and cervical spine --> no acute findings/stroke/fracture Started on empiric thiamine 02/28 --> continue at discharge Repeat UA obtained -- did not appear affected, +ketones, no nitrates/leuk est/bacteria Carotid dopplers NEGATIVE for significant stenosis Awaiting placement -- Additional referrals placed 03/02, pending response. [facility] without beds until next week Pacemaker interrogation --> pacemaker interrogation with several arrhythmias per Dr Perez, most sinus tachycardia --> 2 episodes--> 1 on Feb 27 non-sustained vtach, one spidoe February 07 polymorphic ventricular tachycardia vs VF that responded spontaneously which would have been day prior to admission on 02/08 (2) Tachycardia: Plan: paroxysmal a fib noted in history, ?unclear why not on anticoagulation ?hx GI bleeding? --> Hx bleeding on plavix 150mg (2 tablets daily) and aspirin but nothing since that time --> has hx parosyxmal afib but has a watchman device per daughter Admitted to tele under OBS due to a brief run of V tach. (noted in communication report --> notified by emergency room physician the patient had an asymptomatic run of what appeared to be a wide-complex tachycardia that self resolved. Patient's chart was reviewed and cardiac enzymes checked initially at time of emergency room visit were negative. No significant electrolyte deficiencies or abnormalities were noted on admission labs. Due to this noted arrhythmia we will upgrade the patient's admission status to telemetry and repeat cardiac enzymes approximately 6 hours from time of initial labs, repeat negative) --> no mag checked on admission, low at 1.6 and ordered 2gm IV--> repeat wnl and remains stable On aspirin 81mg daily -- per daughter, she had been providing and patient has been getting Remains sinus tachy on monitor--> CTA NEGATIVE for PE records from cards w patient previously on metoprolol --> started back 25mg succinate daily and continued --> HRs in 70-80s, up to 90s but overall improved. Will d/c telemetry later this evening if remains stable -- no further episodes of wide complex tachy (on admission, self-resolved, also replaced mag) (3) Ulcerative colitis: Plan: hx of such, increased risk of clotting. checking CTA/venous doppler as above --> negative but does note pulm nodule that will need follow up not on meds (4) GERD (gastroesophageal reflux disease): Plan: continue PPI, also on Carafate (5) Chronic systolic CHF (congestive heart failure): Plan: CAD s/p MN 2004 s/p 2 Intracoronary Stents followed by CABG x 2 Vessels, Ischemic Cardiomyopathy s/p AICD, Chronic Systolic CHF Coronary bypass grafting 2005, saphenous vein graft to OM and saphenous vein graft to right coronary artery Cardiac catheterization 12/2019: Ejection fraction 25-30%. Normal left main. 70% proximal OM1 with patent graft, 80% proximal RCA with patent graft, nonobstructive disease in left anterior descending No evidence of heart failure at this time. Continues on lasix 40mg daily Continue ASA, atorvastatin, restarted metoprolol (6) Dementia: Plan: supportive care continue Rivastigmine No def in B12/TSH (7) COPD (chronic obstructive pulmonary disease): Plan: -- Continue usual inhalers -- breo -- Duoneb nebulizer treatments. -- Continue supplemental O2. --> Last admission 2 step done prior to d/c and no need supplemental O2 at rest, 2L needed with exertion --> wean O2 as tolerated, currently upper 97s on 2L NC --> asked RN to wean while at rest as does not need and given underlying COPD should not be 97% on 2L while in bed resting --> taken off today and remains stable. will ask rn again to wean today as being placed back on O2 at times without desaturation checked iron studies/b12/folate -- no deficiency (8) Stented coronary artery: Plan: as above remains on aspirin daily per daughter. recs from [facility] (9) S/P CABG x 2: Plan: continue home medications (10) AICD (automatic cardioverter/defibrillator) present: Plan: Noted also has watchman device/history of paroxysmal afib (11) Cardiomyopathy: Plan: as above req'd records from [facility] for more information ECHO Nov 2019 with EF 30-35% (prior sept with EF 25-30%), mild-moderate mitral regurgitation (12) CAD (coronary artery disease): Plan: continue ASA/statin (13) Hypomagnesemia: Plan: ordered for tachycardia, low 1.6 on 02/28, 2gm IV ordered repeat wnl HRs improved, no further tachycardia Plan: PT/OT consults pending -- will likely need rehab/placement as unsafe to return home safely CM discussion with daughter and she is to call back later today to discuss other option. [facility] care without bed likely the rest of the week, but if no other options will reach back on sunday --> additional referrals placed 03/02 D/c telemetry later this afternoon Admission and Anticipated Discharge Date Admission Date: March 01, 2021 Supervising Physician Co-Signing Physician Notes PATRICIA Supervision Note: I did not personally see or examine the patient today, but I verified all rivero points of PATRICIA Justice's assessment and plan with the following exceptions/additions: None Subjective patient seen this morning. no new complaints no fever, chills, chest pain, shortness of breath, abdominal pain, nausea or vomiting. Review of Systems Review of Systems: All systems reviewed & are unremarkable except as noted in HPI & below Physical Exam Physical Exam: GENERAL:WD/WN elderly female, laying in bed, no acute distress. On 2L NC with SpO2 97. ENT: mmm, no JVD, +bruit b/l CV: regular rhythm, rate 78bpm, no m/r/g, trace pedal edema Resp: much improved, better air movement, less crackles but still diminished in the bases, faint crackles L upper post field, no wheezing, on room air GI: +BS, soft, non-tender MSK: moves all extremities, no calf edema/erythema/tenderness Neuro: CN intact grossly, 4/5 strength b/l LE, poor gait/balance Psych: awake, alert and oriented to self/that she is in the hospital. Not to time/situation. Poor insight. Results & Data Results & Data ([facility]) Vital Signs (Past 12 Hours) Vital Signs Temp Pulse Pulse Resp BP Pulse Ox 03/03/21 07:25 36.4 C L 74 18 117/80 97 03/03/21 07:00 87 03/03/21 03:13 36.3 C L 73 16 100/65 100 03/02/21 23:28 36.4 C L 81 16 106/65 97 Laboratory Results 03/03/21 03/03/21 Range/Units 06:13 06:13 WBC 3.50 L (4.8-10.8) K/uL RBC 3.75 L (4.2-5.4) M/uL Hgb 11.0 L (12.0-16.0) g/dL Hct 34.8 L (37-47) % MCV 92.8 (80-100) fL MCH 29.3 (25-34) pg MCHC 31.6 L (32-36) g/dL RDW Std Deviation 57.7 H (36.4-46.3) fL RDW Coeff of Eric 17.0 H (11.5-14.5) % Plt Count 215 (130-400) K/uL MPV 10.0 (7.4-10.4) fL Immature Gran % (Auto) 0.3 % Neut % (Auto) 52.6 % Lymph % (Auto) 29.4 % Crenshaw % (Auto) 16.3 % Eos % (Auto) 1.1 % Baso % (Auto) 0.3 % Neut # (Auto) 1.84 (1.4-6.5) K/uL Lymph # (Auto) 1.03 L (1.2-3.4) K/uL Crenshaw # (Auto) 0.57 (0.11-0.59) K/uL Eos # (Auto) 0.04 (0-0.5) K/uL Baso # (Auto) 0.01 (0-0.2) K/uL Immature Gran # (Auto) 0.01 (0.00-0.02) K/uL Sodium 139 (136-145) mmol/L Potassium 3.6 (3.5-5.1) mmol/L Chloride 105 (98-107) mmol/L Carbon Dioxide 29 (21-32) mmol/L Anion Gap 5 (3-11) BUN 11 (6-23) mg/dl Creatinine 0.70 (0.6-1.2) mg/dl Est Cr Clr Drug Dosing 48.2 ml/min Est GFR ( Amer) 92.9 ml/min Est GFR (Non-Af Amer) 80.1 ml/min BUN/Creatinine Ratio 15.7 (10-20) Glucose 90 (70-99(Fasting)) mg/dl Calcium 8.6 (8.5-10.1) mg/dl Magnesium 1.9 (1.7-2.4) mg/dl PG Care Time/CCT Total # of Minutes Spent Total Time Spent with Patient: Total time spent is greater than 50% in coordination of care (as documented) at patient's floor/unit and/or counseling patient: Coding Level of Care Code 33706 Subseq Hosp Care Lvl 2 Diagnoses Fall W19.XXXA Encounter type: initial encounter Tachycardia R00.0 Ulcerative colitis K51.90 GERD (gastroesophageal reflux disease) K21.9 Chronic systolic CHF (congestive heart failure) I50.22 Dementia F03.90 COPD (chronic obstructive pulmonary disease) J44.9 Stented coronary artery Z95.5 S/P CABG x 2 Z95.1 AICD (automatic cardioverter/defibrillator) present Z95.810 Cardiomyopathy I42.9 CAD (coronary artery disease) I25.10 Hypomagnesemia E83.42 (1) Fall Encounter type: initial encounter Qualified Code(s): W19.XXXA - Unspecified fall, initial encounter
[2021-03-03] MEDS: BACLOFEN 10 MG TAB PO SCH ×2 (08:56→20:26)
[2021-03-03] MEDS: CETIRIZINE HCL 10 MG TABLET PO SCH (08:56)
[2021-03-03] MEDS: METOPROLOL SUCC 25MG EXT REL TAB PO SCH (08:56)
[2021-03-03] MEDS: MULTIVITAMIN TAB PO SCH (08:57)
[2021-03-03] MEDS: PARoxetine HCl CONTROLLED REL 12.5 MG TABCR PO SCH (08:57)
[2021-03-03] MEDS: PANTOprazole 40 MG TAB PO SCH ×2 (08:57→20:27)
[2021-03-03] MEDS: SUCRALFATE 1 GM TAB PO SCH ×3 (08:57→20:27)
[2021-03-03] MEDS: ASPIRIN 81 MG ECTAB PO SCH (08:57)
[2021-03-03] MEDS: FUROSEMIDE 40 MG TAB PO SCH (08:57)
[2021-03-03] MEDS: AZITHROMYCIN 250 MG TAB PO SCH (08:57)
[2021-03-03] MEDS: lamoTRIgine 100 MG TAB PO SCH ×2 (08:58→20:27)
[2021-03-03] MEDS: guaiFENesin 600 MG TABCR PO SCH ×2 (08:58→20:26)
[2021-03-03] MEDS: FLUTICASONE/VILANTEROL 100/25MCG 14 PUFFS/INHALER INH SCH (08:58)
[2021-03-03] MEDS: THIAMINE HCL 100 MG in SYRINGE 9 ML IV SCH (11:50)
[2021-03-03] MEDS: ADVANCED PROBIOTIC 1250 MG CAPSULE PO SCH (11:51)
[2021-03-03] MEDS: LORazepam 0.5 MG TAB PO SCH (14:09)
[2021-03-03] MEDS: ATORVASTATIN 40 MG TAB PO SCH (15:23)
[2021-03-03] MEDS: POTASSIUM CHLORIDE CRTAB 20 MEQ TABCR PO SCH (15:23)
[2021-03-03] MEDS: DOCUSATE SODIUM/SENNA 50/8.6MG TAB PO SCH (20:26)
[2021-03-03] MEDS: QUEtiapine FUMARATE 25 MG TABLET PO SCH (20:27)
[2021-03-03] MEDS: ENOXAPARIN INJ 40 MG/0.4 ML SYR SQ SCH (20:28)
--- NOTE | 2021-03-04 07:28 | Discharge Summary ---
Date of Service March 04, 2021 Admission HPI Per Admitting Provider Ms. Keita is an 81 year old female with a history of Dementia, multiple falls, Asthma, COPD, Chronic Hypoxic and Hypercapnic Respiratory Failure (on chronic supplemental O2 at 4 L/min), CAD s/p LA 2005 s/p 2 Intracoronary Stents followed by CABG x 2 Vessels, Ischemic Cardiomyopathy s/p AICD, Chronic Systolic CHF, GERD, Depression, Nodular Goiter, Peripheral Neuropathy, Ulcerative Colitis, Nephrolithiasis, and Paroxysmal Atrial Fibrillation, presents with a fall. Patient was found to be on the floor near her bed. She appears to have been smoking, and was not wearing her oxygen when the paramedics arrived. Patient has COPD and normally requires to be on oxygen. Paramedics have been visiting her house for falls, and due to this, ER provider relays that patient may not be safe to live home. Admission Exam Per Admitting Provider GENERAL: Patient lying in bed, she is in no acute distress. HEENT: Head is atraumatic, normocephalic. EOM's intact. Facies symmetric. No perioral cyanosis. NECK: No JVD. JVP is not elevated. Carotid upstrokes are + 2 bilaterally. CHEST/LUNGS: lungs appear clear. CVS: S1 and S2 are regular without obvious murmurs, gallops, or rubs. PMI is nonpalpable. No lifts, heaves, or thrills. No abdominal aortic or renal bruits. ABDOMINAL EXAM: Bowel sounds are present. No masses, organomegaly, or tenderness. EXTREMITIES: No clubbing or cyanosis. No edema. Intact radial pulses bilaterally. NEUROLOGIC EXAM: Patient is awake, alert, and interactive. She is oriented to self, place. Not to time. Principal Diagnosis Fall Discharge Exam GENERAL:WD/WN elderly female, laying in bed, no acute distress. On room air sitting in bed ENT: mmm, no JVD, +bruit b/l CV: regular rhythm, rate 84bpm, no m/r/g, trace pedal edema Resp: much improved, better air movement, less crackles but still diminished in the bases, faint crackles L upper post field, no wheezing, on room air GI: +BS, soft, non-tender MSK: moves all extremities, no calf edema/erythema/tenderness Neuro: CN intact grossly, 4/5 strength b/l LE, poor gait/balance Psych: awake, alert and oriented to self/that she is in the hospital. Not to time/situation. Poor insight. Discharge Data Allergies Allergy/AdvReac Type Severity Reaction Status Date / Time No Known Allergies Allergy Verified 02/08/21 12:09 Consultations 02/27/21 11:32 ED Decision to Admit Stat 02/28/21 14:05 Consult Health Information Management Routine Consult Health Information Management Routine 02/28/21 14:13 Consult Health Information Management Routine 03/01/21 20:22 Consult Cardiology Routine Ordered Studies Chest X-Ray 02/27/21 08:15 XR chest 1V portable CLINICAL HISTORY: weakness TECHNIQUE: Single frontal radiograph of the chest was obtained. Comparison: Comparison is made to chest one view 02/08/2021 FINDINGS: Median sternotomy wires are seen. Pacemaker defibrillator is noted. Cardiomegaly is noted. Bilateral lower lung predominant airspace opacities are seen. No evidence of pleural effusion or pneumothorax. IMPRESSION: Bilateral lower lung predominant airspace opacities which may represent atelectasis, pneumonia, and/or aspiration. ACT 112: Negative or not required by law. Electronically signed by: Gerald Hawk M.D. 02/27/2021 9:00 AM Abdomen/Pelvis CT 02/27/21 08:16 CT abd pelvis wo con, CT lumbar spine wo con CLINICAL HISTORY: fall, back pain TECHNIQUE: Helical axial images of the abdomen and pelvis were obtained. Automated dose lowering techniques and/or adjustment according to patient size were utilized for this exam. Dedicated images of the lumbar spine were obtained. This exam was performed without intravenous contrast. COMPARISON: None available at the time of this dictation. FINDINGS: Lower chest: Bibasilar atelectasis versus scarring is seen. Cardiomegaly is seen with partial visualization of severe atherosclerotic disease. Liver: Unremarkable. No focal lesions are seen. Gallbladder and biliary tree: Patient is status post cholecystectomy. No intra- or extrahepatic biliary ductal dilation. Pancreas: Fatty replacement of the pancreas is seen. Spleen: Unremarkable. Adrenals: There is mild diffuse thickening of the left adrenal gland. 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 Kidneys and ureters: Unremarkable. Bladder: Limited evaluation due to underdistention. Reproductive organs: Unremarkable. Bowel: Diverticulosis is seen without evidence of diverticulitis. A hiatal hernia is seen. Lymph nodes Retroperitoneal: Unremarkable. Mesenteric: Unremarkable. Pelvic: Unremarkable. Peritoneum: Normal. Vessels: Unremarkable. Abdominal wall: Unremarkable. Bones: Multilevel degenerative changes are seen. Anterior wedge deformity is seen at T12. Posterior fixation hardware is seen at L4-L5. IMPRESSION: No evidence of acute abnormalities. In particular no evidence of fractures in this patient with low back pain. ACT 112: Negative or not required by law. Electronically signed by: Gerald Hawk M.D. 02/27/2021 9:[address] 02/27/21 08:16 CT cervical spine wo con CLINICAL HISTORY: fall TECHNIQUE: Multidetector row helical CT of the cervical spine was performed without administration of intravenous contrast. Coronal and sagittal reformations were obtained. Automated dose lowering techniques and/or adjustment according to patient size were utilized for this exam. Comparison: Comparison is made to CT cervical spine 03/28/2020 FINDINGS: No acute fractures or subluxations are identified. Degenerative changes are seen in the visualized spine. The alignment is normal. An 8 millimeter nodule seen in the left upper lobe. IMPRESSION: Degenerative changes without evidence of acute bony injury. 7.5 mm nodule in the right upper lobe. According to Fleischner criteria, CT chest should be performed at 6-12 months. In high-risk patients, a 18-24 month follow-up is recommended, in low-risk patients, this 18-24 month follow-up CT is optional. ACT 112: Negative or not required by law. Electronically signed by: Gerald Hawk M.D. 02/27/2021 9:[address] 02/27/21 08:16 CT head/brain w con CLINICAL HISTORY: fall TECHNIQUE: Contiguous axial CT images of the head from the base of the skull to the vertex before and after intravenous administration of IV contrast and submitted for interpretation. Automated dose lowering techniques and/or adjustment according to patient size were utilized for this examination. COMPARISON: Comparison is made to CT head 03/28/2020 FINDINGS: Areas of decreased attenuation are present in the periventricular and subcortical white matter bilaterally consistent with small vessel ischemic disease. Generalized cerebral atrophy with commensurate enlargement of the ventricles, sulci, and cisterns is also present. There is no acute intracranial hemorrhage or evidence of acute territorial infarction. No shift of the midline structures, mass effect, or extra-axial abnormalities are shown. Atherosclerotic calcifications are present in the intracranial segments of the internal carotid arteries. Imaged portions of the paranasal sinuses and mastoid air cells are clear. The orbits appear normal. There are no acute fractures of the calvaria or scalp swelling. IMPRESSION: No acute intracranial hemorrhage, evidence of large acute territorial infarction, or other acute intracranial disease process. ACT 112: Negative or not required by law. Electronically signed by: Gerald Hawk M.D. 02/27/2021 9:[address] 02/27/21 08:16 CT abd pelvis wo con, CT lumbar spine wo con CLINICAL HISTORY: fall, back pain TECHNIQUE: Helical axial images of the abdomen and pelvis were obtained. Automated dose lowering techniques and/or adjustment according to patient size were utilized for this exam. Dedicated images of the lumbar spine were obtained. This exam was performed without intravenous contrast. COMPARISON: None available at the time of this dictation. FINDINGS: Lower chest: Bibasilar atelectasis versus scarring is seen. Cardiomegaly is seen with partial visualization of severe atherosclerotic disease. Liver: Unremarkable. No focal lesions are seen. Gallbladder and biliary tree: Patient is status post cholecystectomy. No intra- or extrahepatic biliary ductal dilation. Pancreas: Fatty replacement of the pancreas is seen. Spleen: Unremarkable. Adrenals: There is mild diffuse thickening of the left adrenal gland. 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 Kidneys and ureters: Unremarkable. Bladder: Limited evaluation due to underdistention. Reproductive organs: Unremarkable. Bowel: Diverticulosis is seen without evidence of diverticulitis. A hiatal hernia is seen. Lymph nodes Retroperitoneal: Unremarkable. Mesenteric: Unremarkable. Pelvic: Unremarkable. Peritoneum: Normal. Vessels: Unremarkable. Abdominal wall: Unremarkable. Bones: Multilevel degenerative changes are seen. Anterior wedge deformity is seen at T12. Posterior fixation hardware is seen at L4-L5. IMPRESSION: No evidence of acute abnormalities. In particular no evidence of fractures in this patient with low back pain. ACT 112: Negative or not required by law. Electronically signed by: Gerald Hawk M.D. 02/27/2021 9:44 AM Chest CTA 02/28/21 08:25 CT ANGIOGRAM OF THE CHEST CLINICAL HISTORY: Fall. Elevated d-dimer. Recent Covid. COMPARISON STUDY: Chest x-ray dated 02/27/2021. Chest CT dated 02/08/2021. TECHNIQUE: Following the IV administration of 118 cc of Optiray 320, CT angiogram of the chest was performed from the upper abdomen to the thoracic inlet utilizing the pulmonary embolus protocol. Images are reviewed in the axial, sagittal, and coronal planes. 3-D MIPS images are created and assessed. IV contrast was administered without complication. A dose lowering technique was utilized adhering to the principles of ALARA. CT DOSE: 279.85 mGycm FINDINGS: Thyroid: Imaged portions of the thyroid gland are normal in size and attenuation. Thoracic aorta: There is atherosclerotic calcification of the thoracic aorta, which is normal in caliber and demonstrates standard 3-vessel arch anatomy. No dissection is seen. Pulmonary vasculature: The pulmonary trunk is normal in caliber. There are no filling defects identified in main or lobar pulmonary branches to suggest pulmonary embolus. The segmental and subsegmental branches are not well assessed due to motion artifact. Heart: A 2-lead cardiac AICD is present in the left chest wall. The patient is status post midline sternotomy. The heart is enlarged and without pericardial effusion. The coronary arteries are densely calcified. Lungs and pleural spaces: Evaluation of the lung parenchyma is compromised by motion artifact. There is moderate emphysema. The trachea and central airways appear clear. No pleural effusion is identified. There is mild patchy nodular airspace consolidation in the left upper lobe, with faint groundglass opacities also seen in the right upper lobe and the superior segment of the right lower lobe. Scarring/atelectasis is seen at the lung bases. There are scattered calcified granulomas. Mediastinum: There is no mediastinal lymphadenopathy. Tammie: Clear. Axillae: There is no axillary lymphadenopathy. Upper abdomen: Partially visualized upper abdominal viscera is within normal limits. Skeletal structures: The skeletal structures are osteopenic. Degenerative change is noted in the shoulders and thoracic spine. There is a minimal chronic superior endplate compression deformity of T4. No lytic or blastic bony lesions are seen. IMPRESSION: 1. Significantly motion compromised examination. 2. There is no evidence of central pulmonary embolus in the main or lobar pulmonary arteries. Evaluation of the segmental and subsegmental branches is significantly compromised by motion artifact. 3. Cardiomegaly and emphysema. 4. There is mild patchy nodular airspace consolidation as above, greatest in the left upper lobe. This is new from 02/08/2021 and typical for an infectious/inflammatory pneumonitis. A follow-up chest CT in 3-4 months time is recommended to document complete resolution. ACT 112: Negative or not required by law. Electronically signed by: Doe Thibodeaux M.D. 02/28/2021 9:50 AM Venous Doppler Study 02/28/21 08:51 ULTRASOUND BILATERAL LOWER EXTREMITY VENOUS CLINICAL HISTORY: Hypoxia. Tachycardia. Clinical concern for deep venous thrombosis. COMPARISON STUDY: No priors. TECHNIQUE: Real-time, grayscale, and color Doppler sonography of the deep veins of the right and left lower extremity was performed from the inguinal crease to the calf. Compression and augmentation were utilized. FINDINGS: There is no sonographic evidence of deep venous thrombosis identified in the right or left lower extremity. The common femoral, superficial femoral, and popliteal veins are patent and normally compressible bilaterally. The greater saphenous vein and the profunda femoris vein at the junction with the common femoral vein are clear in both legs. The visualized calf veins are patent bilaterally. IMPRESSION: There is no sonographic evidence of deep venous thrombosis identified in the right or left lower extremity. ACT 112: Negative or not required by law. Electronically signed by: Doe Thibodeaux M.D. 02/28/2021 9:[address] 02/28/21 20:40 CT SCAN OF THE CERVICAL SPINE CLINICAL HISTORY: Fall. COMPARISON STUDY: CT of the cervical spine dated 02/27/2021 and 03/28/2020. TECHNIQUE: CT scan of the cervical spine is performed from the skull base to the upper thoracic spine. Images are reviewed in the axial, sagittal, and coronal planes. IV contrast was not administered for this examination. A dose lowering technique was utilized adhering to the principles of ALARA. CT DOSE: 985.77 mGy.cm FINDINGS: Skeletal structures: The skeletal structures are osteopenic. There is no evidence of fracture or subluxation involving the cervical spine. Vertebral body height is maintained. There is minimal anterolisthesis at C3-C4, and minimal retrolisthesis at C4-C5. Alignment is otherwise preserved. Anterior osteophytes are seen throughout. There is straightening of the cervical lordosis. The odontoid process and lateral masses are intact. The atlantoaxial articulation is preserved noting productive degenerative change. The spinous processes appear intact. There is moderate to advanced multilevel cervical spondylosis. Uncovertebral and facet arthropathy contribute to neural foraminal narrowing at most levels. Intervertebral discs: There is moderate to advanced disc space narrowing at all cervical levels between C3-C4 and C6-C7. Central canal: Posterior disc osteophyte complexes at C4-C5, C5-C6, and C6-C7 may contribute to acquired compromise of the central canal. Soft tissues: The prevertebral and paraspinous soft tissues are within normal limits. Pacemaker leads are noted at the left thoracic inlet. There is atherosclerotic calcification of the carotid bulbs. Calvarium: The visualized calvarium at the skull base appears intact. Brain parenchyma: Partially visualized brain parenchyma at the skull base is within normal limits. Sinuses and mastoids: The visualized paranasal sinuses are clear. The mastoid air cells are well pneumatized. Lung apices: Emphysematous change is noted. A 9 mm nodular density is seen at the left apex on image #[id number]. IMPRESSION: 1. There is no evidence of fracture or subluxation involving the cervical spine. 2. Osteopenia and spondylotic change as above. 3. Emphysema. 4. There is a nodular opacity at the left apex which is unchanged from yesterday but new from older prior studies. This may be on an inflammatory basis. Chest CT follow-up is again recommended to document resolution. ACT 112: Negative or not required by law. Electronically signed by: Doe Thibodeaux M.D. 03/01/2021 7:[address] 02/28/21 20:40 CT SCAN OF THE BRAIN WITHOUT IV CONTRAST CLINICAL HISTORY: Fall. Head injury. COMPARISON STUDY: CT of the brain dated 02/27/2021. TECHNIQUE: Unenhanced axial CT scan of the brain is performed from the vertex to the skull base. A dose lowering technique was utilized adhering to the principles of ALARA. FINDINGS: Brain parenchyma: There are age-related involutional changes noting moderate to advanced confluent subcortical and periventricular microangiopathic change. There is no hemorrhage, mass effect, or evidence of acute territorial ischemia by CT criteria. Apple-white matter differentiation is preserved. No extra-axial fluid collection is seen. Mineralization is noted in the basal ganglia. Ventricles, sulci, cisterns: Prominent secondary to involutional change. Intracranial vasculature: There is atherosclerotic calcification of the cavernous carotid arteries. Calvarium: The skeletal structures are osteopenic. There is no depressed calvarial fracture. Sinuses and mastoids: The visualized paranasal sinuses are clear. The mastoid air cells are well pneumatized. Orbits: The bony orbits are grossly intact. There are bilateral ocular lens implants. IMPRESSION: There is no hemorrhage, mass effect, or evidence of acute territorial ischemia by CT criteria. ACT 112: Negative or not required by law. Electronically signed by: Doe Thibodeaux M.D. 03/01/2021 7:04 AM Carotid Doppler Study 03/01/21 14:00 US carotid doppler BI CLINICAL HISTORY: 81 years-old Female with falls, hx CEA. Follow-up study in a patient with history of prior stroke COMPARISON: Head CT 02/28/2021 TECHNIQUE: Multiple real time sonographic images of the carotid bifurcations were obtained assessing apple scale, color Doppler and spectral wave form appearance FINDINGS: RIGHT CAROTID: The peak systolic velocity measured within the right ICA is76 cm/sec. The end diastolic velocity measured 28 cm/sec. The ICA to CCA ratio measured 2.7 which correlates with a stenosis of 0-50%. Moderate atherosclerotic plaque of the right carotid bulb and proximal right ICA. LEFT CAROTID: The peak systolic velocity measured within the left ICA is82 cm/sec. The end diastolic velocity measured 18 cm/sec. The ICA to CCA ratio measured 1.5 which correlates with a stenosis of 0-50%. Moderate atherosclerotic plaque of the left carotid bulb and proximal left ICA. There is normal antegrade vertebral flow bilaterally. IMPRESSION: 1. Moderate atherosclerosis without hemodynamically significant stenosis. 2. Normal antegrade vertebral flow bilaterally. ACT 112: Negative or not required by law. The above report was generated using voice recognition software. It may contain grammatical, syntax or spelling errors. Electronically signed by: Monster Viera M.D. 03/01/2021 2:41 PM Hospital Course (1) Fall: recurrent falls in an 81 yo female with history of dementia. Patient appears that she will ultimately need placement as she does not appear to be safe at home per EMS reported finding patient at end of bed possibly smoking, not wearing supplemental oxygen Recent COVID/Flu admission -->previously completed 10 days dexamethasone and [address] Head - No acute intracranial hemorrhage, evidence of large acute territorial infarction, or other acute intracranial disease process CT Cervical Spine - Degenerative changes without evidence of acute bony injury. 7.5 mm nodule in the right upper lobe. According to Fleischner criteria, CT chest should be performed at 6-12 months. In high-risk patients, a 18-24 month follow-up is recommended, in low-risk patients, this 18-24 month follow-up CT is optional. CTA/P No evidence of acute abnormalities. In particular no evidence of fractures in this patient with low back pain. CXR b/l lower lung predominant airspace opacities which may represent atelectasis, pneumonia or aspiration D-dimer positive on admission (recent COVID/flu) Venous Dopplers NEGATIVE for DVT Check CTA to r/o PE --> NEGATIVE for PE, but did note: mild patchy nodular airspace consolidation as above, greatest in the left upper lobe. This is new from 02/08/2021 and typical for an infectious/inflammatory pneumonitis. A follow- up chest CT in 3-4 months time is recommended to document complete resolution. Azithromycin for COPD exacerbation - completed 5 days while inpatient + MUcinex Iron studies wnl, B12 >1500, folate wnl TSH wnl Fall again overnight 02/28 --> repeat CT head and cervical spine --> no acute findings/stroke/fracture Started on empiric thiamine 02/28 --> continued at discharge 100mg BID Repeat UA obtained -- did not appear affected, +ketones, no nitrates/leuk est/bacteria Carotid dopplers NEGATIVE for significant stenosis Awaiting placement -- Additional referrals placed 03/02, pending response. [facility] without beds until next week. --> Discussion with daughter and looking into additional hours at home. Has 16 now through [employer] and working on 28/08 but staying with her until caregivers able to be arranged arranged home health therapy PT/OT through [facility] Pacemaker interrogation. Normal longevity. --> pacemaker interrogation with several arrhythmias per Dr Perez, most sinus tachycardia --> 2 episodes--> 1 on Feb 27 non-sustained vtach, one episode February 07 polymorphic ventricular tachycardia vs VF that responded spontaneously which would have been day prior to admission on 02/08 [id number] daily added, decreased to 12.5mg daily due to low BPs but if BP tolerates would increase back to 25mg during follow up with her usual [facility] Dr Barger Of note, could have progressive decline in patient with dementia and recent covid/flu and continued worsening/falls over past several months. --> IF continued issues likely will need long term care social worker placement. Patient adamantly against this and daughter wanting to take home but will need to consider in the future for recurrent events if remains unstable at home/unable to obtain additional caregivers (2) Tachycardia: paroxysmal a fib noted in history, ?unclear why not on anticoagulation ?hx GI bleeding? --> Hx bleeding on plavix 150mg (2 tablets daily) and aspirin but nothing since that time --> has hx parosyxmal afib but has a watchman device per daughter Admitted to tele under OBS due to a brief run of V tach. (noted in communication report --> notified by emergency room physician the patient had an asymptomatic run of what appeared to be a wide-complex tachycardia that self resolved. Patient's chart was reviewed and cardiac enzymes checked initially at time of emergency room visit were negative. No significant electrolyte deficiencies or abnormalities were noted on admission labs. Due to this noted arrhythmia we will upgrade the patient's admission status to telemetry and repeat cardiac enzymes approximately 6 hours from time of initial labs, repeat negative) --> no mag checked on admission, low at 1.6 and ordered 2gm IV--> repeat wnl and remains stable On aspirin 81mg daily -- per daughter, she had been providing and patient has been getting Remains sinus tachy on monitor--> CTA NEGATIVE for PE records from cards w patient previously on metoprolol --> started back 25mg succinate daily, decreased to 12.5mg due to hypotension to decrease risk of falls. --> Titrate at cards follow up if BPs tolerated at follow up with Dr. Barger. nurse navigator called their office and they have availability and will be calling patient this upcoming week this appointment d/c'd telemetry as no further episode of wide complex tachy after replacement of mag on admission (3) Ulcerative colitis: hx of such, increased risk of clotting. checking CTA/venous doppler as above --> negative but does note pulm nodule that will need follow up --> follow up with PCP not on meds, no blood in stool noted/abd pain, hgb stable (4) GERD (gastroesophageal reflux disease): continued PPI, Carafate (5) Chronic systolic CHF (congestive heart failure): CAD s/p LA 2004 s/p 2 Intracoronary Stents followed by CABG x 2 Vessels, Ischemic Cardiomyopathy s/p AICD, Chronic Systolic CHF Coronary bypass grafting 2005, saphenous vein graft to OM and saphenous vein graft to right coronary artery Cardiac catheterization 12/2019: Ejection fraction 25-30%. Normal left main. 70% proximal OM1 with patent graft, 80% proximal RCA with patent graft, nonobstructive disease in left anterior descending No evidence of heart failure at this time. Continued on lasix 40mg daily restarted metoprolol as above Continue ASA, atorvastatin for CAD Would recommend considering addition of lisinopril at follow up with her usual clay miller, unclear why she was not on in the past -- per cards on consult, would consider addition in outpatient setting (6) Dementia: supportive care continue Rivastigmine No def in B12/TSH (7) COPD (chronic obstructive pulmonary disease): Continue home inhalers Duoneb prn Supplemental O2 as needed Prior 2 step --2L w ambulation/ none at rest. Remains stable on ambulation, sometimes slow to recover. Encouraged continued follow up with PCP/ref to pulm in [place] near primary webbing supervisor at discretion of PCP (8) Stented coronary artery: as above remains on aspirin daily per daughter. f/u Dr Kaplan at discharge (9) S/P CABG x 2: continue home medications (10) AICD (automatic cardioverter/defibrillator) present: Noted also has watchman device/history of paroxysmal afib (11) Cardiomyopathy: as above ECHO Nov 2019 with EF 30-35% (prior sept with EF 25-30%), mild-moderate mitral regurgitation follow up Dr Kaplan Added metoprolol as above COnsider lisinopril in outpatient setting (12) CAD (coronary artery disease): continued ASA/statin (13) Hypomagnesemia: ordered for tachycardia, low 1.6 on 02/28, 2gm IV ordered repeat wnl x2 supp mag at discharge to prevent further arrythmias given on protonix BID I certify that this patient is under my care and that I, or a physicians assistant manager working with me, had a face to-face encounter that meets the home health [id number] encounter requirements with this patient. The encounter with the patient was in whole, or in part, for the following medical condition, which is the primary reason for home health care (list medical condition): I certify that, based on my findings, the following services are medically necessary home health services: My clinical findings support the need for the above services because: OT Assess ADL Status and Restore Function w ADLs PT Assessment for Endurance / Balance / Strength Skilled Nsg Assessment Further, I certify that my clinical findings support that this patient is homebound (i.e. absences from home require considerable and taxing effort and are for medical reasons or episcopal services or infrequently or of short du ration when for other reasons) because: Certification for Home Health Services: Based on the above findings, I certify that this patient is confined to the home and needs intermittent mcc care, physical therapy and/or speech therapy or continues to need occupational therapy. The patient is under my care, and I have initiated the establishment of the plan of care. This patient will be followed by a physician who will periodically review the plan of care. Total Time Total Time Spent Total Time Spent (In Minutes): 40 Discharge Plan Discharge Items Patient Disposition: Home - Home Health Services Reason For Visit: FALL Discharge Diagnosis: Fall Goals: You have been hospitalized for an acute medical problem. During your stay at [facility], we have made an effort to correct the problem that brought you to the hospital while keeping you as comfortable as possible. Medications were used to bring your condition under control and your discharge instructions will include directions for any medications you should take after leaving the hospital. Please make sure you see your Primary Care Provider as part of your follow up plan. Activity: As commented below Activity Comment: ambulate with walker as tolerated, advance with therpy Non-emergency contact: Primary Care Provider and Financial Sales Associate Call non-emergency contact if: you have any medication questions, your symptoms worsen and your pain is not controlled Follow-up/Referrals: Bony Guerrero M.D. [Primary Care Provider] - (PLEASE CALL YOUR PRIMARY CARE PROVIDER TO SCHEDULE A DISCHARGE FOLLOW-UP APPOINTMENT WITHIN 7-10 DAYS.) Kamar Barger MD [Outside Practitioners] - (Dr. Barger's office will call your daughter to get a hospital follow up appointment scheduled.) Diet: Heart Healthy Addtl Attending Provider Instructions: You have been hospitalized for a fall. You had a low magnesium and this was replaced and stable, and all imaging was negative for acute process. You completed a course of azithromycin for a COPD exacerbation while in the hospital. You should continue 2L oxygen with and do not need anything at rest. B12 was normal. Thyroid function was normal. You have been started back on metoprolol but at reduced 12.5mg dose to prevent low blood pressure that could contribute to falls. This can be further increased to 25mg if your blood pressure tolerates. You were seen by cardiology while in the hospital and should have follow up with Dr. Kaplan at discharge for continued monitoring. Given dementia, you were started on B1 supplementation empirically as this can contribute to balance issues/memory issues and will not hurt at discharge. You should continue thiamine (b1) 100mg by mouth twice daily for a month to see if this helps with symptoms.. Your daughter is working on getting additional caregivers at the house and you should not be left alone. Home therapy has been arranged and if this issue persists you may end up needing fci placement but wishes are to return home with family support at this time. You were switched from omeprazole to protonix twice daily at discharge and also sent in magnesium just in case as prior levels low and omeprazole and protonix can sometimes cause these lows. Your magnesium has been stable and the same for the past two days without supplementation currently. Please follow up with your PCP in a week after discharge to monitor your progress. Please return to the emergency department with any fever/chills, chest pain, shortness of breath or for any other symptoms concerning for you. Take care! Pending Studies at Discharge: No Stand-Alone Forms: My [facility] Sync.ME, Smoking Cessation Medications and DC Order Prescriptions: New aspirin 81 mg Tablet,Delayed Release (Dr/Ec) 81 mg PO QAM 30 Days Qty: 30 RF: 0 pantoprazole 40 mg Tablet,Delayed Release (Dr/Ec) 40 mg PO BID 30 Days Qty: 60 RF: 0 metoprolol succinate 25 mg Tablet Extended Release 24 Hr 12.5 mg PO QAM Qty: 30 RF: 0 thiamine HCl (vitamin B1) 100 mg tablet 100 mg PO BID Qty: 60 RF: 3 magnesium oxide 500 mg capsule 500 mg PO DAILY Qty: 30 RF: 0 Continued furosemide 40 mg tablet 40 mg PO QAM RF: 0 atorvastatin 40 mg tablet 40 mg PO DAILY@1500 RF: 0 cetirizine 10 mg tablet 10 mg PO QAM RF: 0 sennosides-docusate sodium [Stool Softener-Laxative] 8.6-50 mg tablet 1 tab PO HS RF: 0 potassium chloride 20 mEq tablet,ER particles/crystals 20 meq PO DAILY@1500 RF: 0 lorazepam 0.5 mg tablet 0.5 mg PO DAILY@1500 RF: 0 oxycodone-acetaminophen 10-325 mg tablet 1 tab PO QID PRN (Reason: Pain) RF: 0 biotin 10,000 mcg capsule 10,000 mcg PO DAILY RF: 0 lamotrigine 100 mg tablet 100 mg PO AMHS RF: 0 rivastigmine 9.5 mg/24 hr patch 24 hour 1 patch transdermal DAILY RF: 0 cyanocobalamin (vitamin B-12) [Vitamin B-12] 5,000 mcg tablet, sublingual 5,000 mcg PO QAM RF: 0 Movantik 25 mg tablet 25 mg PO QAM RF: 0 One-A-Day Proactive 65 Plus 200 mcg tablet 1 tab PO DAILY RF: 0 Daily Probiotic (10 Strains) 4 billion cell capsule 1 cap PO DAILY@1200 RF: 0 quetiapine 25 mg tablet 50 mg PO HS RF: 0 baclofen 10 mg tablet 10 mg PO BID RF: 0 fluticasone propionate 50 mcg/actuation spray,suspension 2 spray INTRANASAL DAILY PRN (Reason: Congestion) RF: 0 paroxetine HCl 37.5 mg tablet extended release 24 hr 37.5 mg PO DAILY RF: 0 Breo Ellipta 100-25 mcg/dose blister with device 1 inh INHALATION DAILY RF: 0 sucralfate 1 gram tablet 1 g PO TID RF: 0 Discontinued omeprazole 20 mg capsule,delayed release(DR/EC) 20 mg PO BID RF: 0 Discharge Orders: Discharge Order (Routine); Ordered 03/04/21 Ordered By: Sharri Talamantes/Other Patient Handouts: A1C Admission Data Admit Date/Time: 03/01/21 12:44 Attending Provider: Sumi Jaffe Admit Provider: Kamar Metcalf Primary Care Provider: Bony Guerrero [facility] ; [place] ; [facility] ; Kamar Metcalf ; Robbin Mcclelland ; [facility] Other Interventions: Discharge Summary Assessment (RN) Last Done: 03/04/21 14:11 Supervising Physician Co-Signing Physician Notes PA Supervision Note: I personally saw and examined the patient. I verified all rivero points and agree with PATRICIA Justice with the following exceptions and/or additions: S-Pt anxious to go home. Has no complaints otherwise O- Vitals reviewed Gen: [AAOx2, NAD] HEENT: [anicteric sclerae, EOMI] CV: [RRR no mgr nl S1S2] Pulm: [CTAB no wcr] Abd: [+BS soft NT ND no masses or hernias] Ext: [no edema] Skin: [no rashes, warm/dry] Neuro: [full strength throughout] A/P-81 yo female here with fall from bed, atypical PNA, no other acute issues but did note NSVT as above, added on Toprol XL Dc to home with 28/08 care Coding Level of Care Code D/C DAY MANAGEMENT >30 MINS Diagnoses Fall W19.XXXA Encounter type: initial encounter Tachycardia R00.0 Ulcerative colitis K51.90 GERD (gastroesophageal reflux disease) K21.9 Chronic systolic CHF (congestive heart failure) I50.22 Dementia F03.90 COPD (chronic obstructive pulmonary disease) J44.9 Stented coronary artery Z95.5 S/P CABG x 2 Z95.1 AICD (automatic cardioverter/defibrillator) present Z95.810 Cardiomyopathy I42.9 CAD (coronary artery disease) I25.10 Hypomagnesemia E83.42
[2021-03-04 07:54] LABS: BUN Creatinine Ratio 17.7 (10-20); Creatinine Clr Calc Pharmacy 42.7 ml/min; Est GFR (African American) 80.2 ml/min; Est GFR (Non-African American) 69.2 ml/min; Magnesium 1.9 mg/dl (1.7-2.4); Potassium 3.7 mmol/L (3.5-5.1)
[2021-03-04] MEDS ORDERED: METOPROLOL SUCC 25MG EXT REL TAB PO SCH (09:00)
[2021-03-04] MEDS: THIAMINE HCL 100 MG in SYRINGE 9 ML IV SCH (09:23)
[2021-03-04] MEDS: BACLOFEN 10 MG TAB PO SCH (09:24)
[2021-03-04] MEDS: lamoTRIgine 100 MG TAB PO SCH (09:24)
[2021-03-04] MEDS: guaiFENesin 600 MG TABCR PO SCH (09:24)
[2021-03-04] MEDS: SUCRALFATE 1 GM TAB PO SCH ×2 (09:25→14:24)
[2021-03-04] MEDS: PANTOprazole 40 MG TAB PO SCH (09:25)
[2021-03-04] MEDS: ASPIRIN 81 MG ECTAB PO SCH (09:25)
[2021-03-04] MEDS: MULTIVITAMIN TAB PO SCH (09:25)
[2021-03-04] MEDS: PARoxetine HCl CONTROLLED REL 12.5 MG TABCR PO SCH (09:26)
[2021-03-04] MEDS: AZITHROMYCIN 250 MG TAB PO SCH (09:26)
[2021-03-04] MEDS: FLUTICASONE/VILANTEROL 100/25MCG 14 PUFFS/INHALER INH SCH (09:27)
[2021-03-04] MEDS: CETIRIZINE HCL 10 MG TABLET PO SCH (09:27)
[2021-03-04] MEDS: FUROSEMIDE 40 MG TAB PO SCH (09:27)
[2021-03-04] MEDS: ADVANCED PROBIOTIC 1250 MG CAPSULE PO SCH (12:39)
--- NOTE | 2021-03-04 13:10 | Cardiology Progress Note ---
Date of Service March 04, 2021 Assessment & Plan (1) Paroxysmal atrial fibrillation: (2) AICD (automatic cardioverter/defibrillator) present: (3) Cardiomyopathy: (4) CAD (coronary artery disease): (5) Mitral regurgitation: Plan: 1. Cardiomyopathy: No evidence of decompensation, pulmonary vascular congestion or edema. I think she can continue on metoprolol succinate and a daily dose of Lasix. We could consider the addition of lisinopril in the outpatient setting. 2. Normally functioning dual-chamber [employer] ICD: Normal longevity. 3. Atrial fibrillation: Currently off telemetry. No recorded atrial fibrillation during her hospitalization. Not on anticoagulation as she has a left atrial appendage occluder 4. Mitral regurgitation: Mild to moderate. 5. Coronary artery disease: No current symptoms of coronary insufficiency or angina. She can be continued on her daily aspirin and atorvastatin. 6. Ventricular tachycardia: No additional symptoms. Continue metoprolol succinate 7. Falls: Does not appear that any particular arrhythmia is responsible for her falls. 8. Recent NSTEMI: No current symptoms of coronary insufficiency or angina I would suggest increasing her metoprolol succinate 25 mg daily. Otherwise, she can continue her current medical therapy. She can follow-up with her regular vise hand at some point after discharge. I will be out of the hospital for the next 2 days. If there are any questions regarding her care these can be directed to the on-call [facility] vise hand. Admission and Anticipated Discharge Date Admission Date: March 01, 2021 Subjective This morning the patient claims to be feeling well. She reported being ambulatory with a walker. She denies breathing difficulty. No symptoms of chest discomfort. No sense of palpitation. Anxious for discharge. Review of Systems Review of Systems: Per HPI Physical Exam Physical Exam: She is alert and oriented to person. She answer questions appropriately. HEENT: Sclerae are anicteric. Pupils are equal and reactive to light and accommodation. Extraocular movements were intact. Neuro: Cranial nerves intact Lungs: Lungs are clear to auscultation bilaterally. There are no rales wheezes or rhonchi. She has normal respiratory effort without use of accessory muscles. There is normal pulmonary excursion. Cardiac: The rhythm was regular. S1 and S2 were normal. Soft holosystolic murmur. Chest: Well-healed sternotomy scar. Extremities: Patient has bilateral radial pulses that are equal in intensity. There is no evidence cyanosis or clubbing. Skin: There are no rashes noted on examination today. Results & Data ([facility]) Vital Signs (Past 12 Hours) Vital Signs Temp Pulse Resp BP Pulse Ox 03/04/21 07:59 36.6 C 110 H 18 125/79 90 Laboratory Results Abnormal Lab Results 03/04/21 06:54 Sodium 139 Potassium 3.7 Chloride 103 Carbon Dioxide 30 Anion Gap 6 BUN 14 Creatinine 0.79 Est Cr Clr Drug Dosing 42.7 Est GFR ( Amer) 80.2 Est GFR (Non-Af Amer) 69.2 BUN/Creatinine Ratio 17.7 Glucose 88 Calcium 9.0 Magnesium 1.9 Diagnostic Findings Coronary bypass grafting 2005, saphenous vein graft to OM and saphenous vein graft to right coronary artery Cardiac catheterization 12/2019: Ejection fraction 25-30%. Normal left main. 70% proximal OM1 with patent graft, 80% proximal RCA with patent graft, nonobstructive disease in left anterior descending Echocardiogram 10/2020: Ejection fraction 25-30%, [id number] mitral regurgitation Echocardiogram 11/2019: Ejection fraction 30 35%, [id number] mitral regurgitation Watchman implantation 08/2019 PG Care Time/CCT Total # of Minutes Spent Total Time Spent with Patient: Total time spent is greater than 50% in coordination of care (as documented) at patient's floor/unit and/or counseling patient: Coding Level of Care Code 95659 Subseq Hosp Care Lvl 2 Diagnoses Paroxysmal atrial fibrillation I48.0 AICD (automatic cardioverter/defibrillator) present Z95.810 Cardiomyopathy I42.9 CAD (coronary artery disease) I25.10 Mitral regurgitation I34.0
[2021-03-04] MEDS: LORazepam 0.5 MG TAB PO SCH (14:24)
[2021-03-04] MEDS: ATORVASTATIN 40 MG TAB PO SCH (14:51)
[2021-03-04] MEDS: POTASSIUM CHLORIDE CRTAB 20 MEQ TABCR PO SCH (14:56)
== END 2021-03-04 16:38 | disposition home health service (06) | DRG 191 ==
LOC: 3E 08:09 → ED 08:09 → SUATTDRO 13:23 → 3E 13:55 → 2S 20:03 → 2N 03-02 17:57

== ENCOUNTER 2021-07-10 09:01 | Inpatient (IN) ==
[2021-07-10] MEDS ORDERED: SODIUM CHLORIDE 0.9% 1000ML 1,000 ML IV STA (09:15)
--- NOTE | 2021-07-10 09:18 | Emergency Department Note ---
Impression & Plan Fall, Elevated troponin, CAD (coronary artery disease) ED Provider Note NAME: JENNI ARECHIGA AGE: 81 SEX: F : 1940 ARRIVES VIA: Ambulance INFORMANT: Patient ED PROVIDER(S): Cain Wilhelm DO CHIEF COMPLAINT: fall HPI: Patient is an 81-year-old female who presents to the ER with a past medical history of CAD, AICD, cardiomyopathy, COPD chronically on 4L NC, and dementia who notes that she was tring to get out of bed last night and fell on the ground. She was unable to get up. She is complaining of mild headache and neck pain but currently has no pain as she is at rest. Denies any chest pain, shortness of breath or belly pain. No pain in the extremities. No other exacerbating or remitting factors. ROS: See above HPI for pertinent positives & negatives. A total of 10 systems reviewed and were otherwise negative. PAST MEDICAL HISTORY:See Below PAST SURGICAL HISTORY:See Below FAMILY HISTORY:See Below SOCIAL HISTORY:See Below HOME MEDICATIONS:See Below ALLERGIES:See Below VITALS:See Below PHYSICAL EXAMINATION: GENERAL: Sitting up in bed, alert, well appearing, well nourished, no distress, non-toxic HEAD: Cervical collar in place with 4 L nasal cannula and bruising and swelling around the left eye EYE EXAM: normal conjunctiva. PERRL and EOM's grossly intact. OROPHARYNX: no exudate, no erythema, lips, buccal mucosa, and tongue normal and mucous membranes are moist CHEST: Stable compression anteriorly and posterior with an old midline incision no tenderness to palpation NECK: supple, no nuchal rigidity, no adenopathy, non-tender LUNGS: Clear to auscultation. Normal chest wall mechanics HEART: no murmurs, S1 normal and S2 normal ABDOMEN: abdomen soft, non-tender, normo-active bowel sounds, no masses, no rebound or guarding. UPPER EXTREMITIES: upper extremities are grossly normal. LOWER EXTREMITIES: No pitting edema. NEURO EXAM: Awake alert following commands, cranial nerves II-XII intact, normal speech, no weakness of arms, no weakness of legs. No drift. Finger to nose intact. Gross sensation intact. MEDICAL DECISION MAKING: Patient is an 81-year-old female with extensive cardiac history that presents to the ER following a fall. She has no other complaints with exception of some mild headache and facial pain. IV was established blood work was obtained. Labs show no significant leukocytosis or anemia. INR was unremarkable. BMP with a CO2 of 33. LFTs bilirubin magnesium was unremarkable. Troponin was elevated at 170. BNP was up at 305. Lipase normal. UA with small amount of k etones suggesting dehydration. COVID was negative. No blood in the urine to suggest rhabdo and there is no skin breakdown to suggest this either. X-rays of the pelvis and chest were unremarkable. CT head face cervical spine was negative. She has no cardiac complaints. Nothing to suggest PE at this time. She was discussed with hospitalist admitted for further work-up for repeat troponins. Did add on a CK as well. Triage Nursing notes reviewed. Limited review of prior medical records performed Vital Signs: reviewed and remarkable for HTN Differential diagnosis: Differential diagnoses include major intracranial, cervical, spinal, thoracic, abdominal, pelvic and neurologic injury. Fracture, contusion, sprain, strain, laceration, abrasions included as well. ER treatment provided: See below Diagnostics interpreted by me: ECG: Sinus rhythm rate of 76 Normal axis T wave inversion in the inferior leads ST depressions in inferior leads No significant change from previous June 25, 2021 Cardiac Monitoring: An order was placed for continuous cardiac monitoring. The monitor shows a rate of 80 with sinus rhythm. Laboratory studies: As stated above and show below. Imaging studies: CT head face and cervical spine were negative Portable AP upright 1 view the chest and pelvic x-ray was unremarkable Consultation(s): Discussed with Siva from the hospitalist for further evaluation Procedures: none Critical Care: None Past Med/Surg History Medical History Arthritis Chronic back pain Chronic systolic CHF (congestive heart failure) Dementia Depression GERD (gastroesophageal reflux disease) Goiter, nodular Hypokalemia Influenza A Myocardial infarction Nephrolithiasis Paroxysmal atrial fibrillation Peripheral neuropathy Ulcerative colitis UTI (urinary tract infection) Surgical History AICD (automatic cardioverter/defibrillator) present Hx of cholecystectomy Social History Smoking Status: Unknown if ever smoked Tobacco Type: E-cigarettes / Vaping Cigarettes Per Day: 1 pack per day; Second Hand Exposure: No; Hx Alcohol Use: No Hx Substance Use: No Preferred Language: [place] Communication Ability: 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 Beliefs That Will Affect Care: None Current Living Situation: Alone Current Living Situation Comment: Caregivers, see CM note in EHR current occupational status: retired How many Children do You have: 3 Other Information That Helps Us Care for You: No Feels Safe at Home: Yes Safety Concerns: Feels Safe At This Time Assistive Devices: Oxygen - Continuous Allergies Allergies Allergy/AdvReac Type Severity Reaction Status Date / Time No Known Allergies Allergy Verified 07/10/21 10:55 Home Meds Home Medications Medication Instructions Recorded Confirmed Lactobac 51-Bifidobac 1 cap PO DAILY@1200 03/28/20 07/10/21 3-L.lactis-S.thermophilus 4 billion cell capsule (Daily Probiotic (10 Strains)) atorvastatin 40 mg tablet 40 mg PO DAILY@1500 03/28/20 07/10/21 biotin 10,000 mcg capsule 10,000 mcg PO DAILY 03/28/20 07/10/21 cetirizine 10 mg tablet 10 mg PO QAM 03/28/20 07/10/21 cyanocobalamin (vitamin B-12) 5,000 mcg PO QAM 03/28/20 07/10/21 5,000 mcg sublingual tablet (Vitamin B-12) furosemide 40 mg tablet 40 mg PO QAM 03/28/20 07/10/21 lamotrigine 100 mg tablet 100 mg PO AMHS 03/28/20 07/10/21 multivitamin with calcium and 1 tab PO DAILY 03/28/20 07/10/21 minerals-folic acid 200 mcg tablet (One-A-Day Proactive 65 Plus) naloxegol 25 mg tablet (Movantik) 25 mg PO QAM 03/28/20 07/10/21 oxycodone-acetaminophen 10 mg-325 1 tab PO QID PRN 03/28/20 07/10/21 mg tablet potassium chloride 20 mEq 20 meq PO DAILY@1500 03/28/20 07/10/21 tablet,extended release(part/cryst) rivastigmine 1 patch TRANSDERMAL DAILY 03/28/20 07/10/21 sennosides 8.6 mg-docusate sodium 1 tab PO HS 03/28/20 07/10/21 50 mg tablet (Stool Softener-Laxative) baclofen 10 mg tablet 10 mg PO BID 02/08/21 07/10/21 fluticasone furoate 100 1 inh INHALATION DAILY 02/08/21 07/10/21 mcg-vilanterol 25 mcg/dose inhalation powder (Breo Ellipta) fluticasone propionate 50 2 spray INTRANASAL DAILY PRN 02/08/21 07/10/21 mcg/actuation nasal spray,suspension paroxetine HCl 37.5 mg 37.5 mg PO DAILY 02/08/21 07/10/21 tablet,extended release 24 hr quetiapine 25 mg tablet 75 mg PO HS 02/08/21 07/10/21 sucralfate 1 gram tablet 1 g PO TID 02/27/21 07/10/21 aspirin 81 mg tablet,delayed 81 mg PO QAM 05/28/21 07/10/21 release lorazepam 0.5 mg tablet 0.5 mg PO .DAILY AT 1500 05/28/21 07/10/21 metoprolol succinate 25 mg 25 mg PO QAM 05/28/21 07/10/21 tablet,extended release 24 hr onabotulinumtoxinA 200 unit 0 unit UD 05/28/21 07/10/21 solution for injection (Botox) pantoprazole 40 mg tablet,delayed 40 mg PO BID 05/28/21 07/10/21 release polyethylene glycol 3350 17 17 g PO DAILY 05/28/21 07/10/21 gram/dose oral powder (Gavilax) Previous Rx's Medication Instructions Recorded magnesium oxide 500 mg capsule 500 mg PO DAILY #30 cap 03/04/21 thiamine HCl (vitamin B1) 100 mg 100 mg PO BID #60 tab 03/04/21 tablet Results & Data (ED) Vital Signs Vital Signs - 24 hr 07/10/21 08:53 07/10/21 09:16 07/10/21 09:28 Temperature 36.9 C Temperature Source Oral Pulse Rate 76 Pulse Rate from SpO2 Sensor Pulse Rhythm Regular Pulse Strength Normal Respiratory Rate 16 Respiratory Effort / Characteristics Non-Labored Respiratory Depth Normal Blood Pressure 144/71 H Blood Pressure Mean 95 Pulse Oximetry 98 98 96 Oxygen Delivery Method Room Air Nasal Cannula Nasal Cannula Oxygen Flow Rate 4 4 Sepsis Recent Fever Within 48 Hours No Sepsis New/Unexplained Change in Mental Status No Sepsis Action Taken by Nursing No Action Required 07/10/21 09:44 07/10/21 10:17 07/10/21 10:31 Temperature Temperature Source Pulse Rate 77 66 78 Pulse Rate from SpO2 Sensor 82 71 Pulse Rhythm Pulse Strength Respiratory Rate 22 17 20 Respiratory Effort / Characteristics Respiratory Depth Blood Pressure 120/74 117/69 140/68 Blood Pressure Mean 89 85 92 Pulse Oximetry 100 99 99 Oxygen Delivery Method Nasal Cannula Nasal Cannula Nasal Cannula Oxygen Flow Rate 4 4 4 Sepsis Recent Fever Within 48 Hours Sepsis New/Unexplained Change in Mental Status Sepsis Action Taken by Nursing Laboratory Data Result diagrams: 07/10/21 Unknown 07/10/21 Unknown Lab Results 07/10/21 Range/Units 10:07 Urine Color Dark Yellow Urine Appearance Clear (Clear) Urine pH 8.0 H (4.5-7.5) Ur Specific [place] 1.025 (1.000-1.030) Urine Protein 1+ H (Negative) Urine Glucose (UA) Negative (Negative) Urine Ketones Trace H (Negative) Urine Blood Negative (Negative) Urine Nitrite Negative (Negative) Urine Bilirubin Negative (Negative) Urine Urobilinogen Negative (Negative) Ur Leukocyte Esterase Negative (Negative) Urine WBC (Auto) 1-5 (0-5) /hpf Urine RBC (Auto) 0-4 (0-4) /hpf U Hyaline Cast (Auto) 1-5 (0-5) /lpf U Epithel Cells (Auto) 20-30 H (0-5) /lpf Urine Bacteria (Auto) Negative (Negative) Administered Medications Enoxaparin Sodium (Enoxaparin Inj 40 Mg/0.4 Ml Syr) 40 mg SQ Q24H [facility] Stop: 08/09/21 13:59 Last Admin: 07/10/21 13:40 Dose: 40 mg Documented by: [id number] Lorazepam (Lorazepam 0.5 Mg Tab) 0.5 mg PO DAILY@1500 [facility] Stop: 08/09/21 14:59 Last Admin: 07/10/21 14:38 Dose: 0.5 mg Documented by: [id number] Miscellaneous (Naloxegol [Movantik] 25 Mg Tablet ~ Order Awaiting Action) 1 ea N/A [facility] Stop: 08/09/21 15:59 Last Admin: 07/10/21 14:38 Dose: Not Given Documented by: [id number] Miscellaneous (Rivastigmine 9.5 Mg/24 Hr Patch~ Order Awaiting Action) 1 ea N/A [facility] Stop: 08/09/21 15:59 Last Admin: 07/10/21 14:39 Dose: Not Given Documented by: [id number] Oxycodone/Acetaminophen (Oxycodone/Acetaminophen 10-325 Tab) 1 tab PO QID PRN PRN Reason: Pain Stop: 07/24/21 13:03 Last Admin: 07/10/21 14:46 Dose: 1 tab Documented by: [id number] Potassium Chloride (Potassium Chloride Crtab 20 Meq Tabcr) 20 meq PO DAILY@1500 [facility] Stop: 08/09/21 14:59 Last Admin: 07/10/21 14:46 Dose: 20 meq Documented by: [id number] Sucralfate (Sucralfate 1 Gm Tab) 1 gm PO TID [facility] Stop: 08/09/21 13:59 Last Admin: 07/10/21 13:40 Dose: 1 gm Documented by: [id number] Discontinued Medications Sodium Chloride (Nss 1000ml) 1,000 mls @ 999 mls/hr IV .Q1H1M [facility] Stop: 07/10/21 10:15 Last Infusion: 07/10/21 11:40 Dose: 0 mls/hr Documented by: [id number] Admin: 07/10/21 09:45 Dose: 999 mls/hr Documented by: [id number] Imaging Data Radiologist's Impression: Cervical Spine CT 07/10/21 09:15 CT SCAN OF THE CERVICAL SPINE CLINICAL HISTORY: Fall. COMPARISON STUDY: CT of the cervical spine dated 05/27/2021. TECHNIQUE: CT scan of the cervical spine is performed from the skull base to the upper thoracic spine. Images are reviewed in the axial, sagittal, and coronal planes. IV contrast was not administered for this examination. A dose lowering technique was utilized adhering to the principles of ALARA. CT DOSE: 903.36 mGy.cm FINDINGS: Skeletal structures: The skeletal structures are osteopenic. There is no evidence of fracture or subluxation involving the cervical spine. Vertebral body height is maintained. There is minimal anterolisthesis at C3-C4, and minimal retrolisthesis at C4-C5. Alignment is otherwise preserved. Anterior osteophytes are seen throughout. There is straightening of the cervical lordosis. The odontoid process and lateral masses are intact. The atlantoaxial articulation is preserved noting productive degenerative change. The spinous processes appear intact. There is moderate to advanced multilevel cervical spondylosis. Uncovertebral and facet arthropathy contribute to neural foraminal narrowing at most levels. Intervertebral discs: There is moderate to advanced disc space narrowing at all cervical levels between C3-C4 and C6-C7. Central canal: Posterior disc osteophyte complexes at C4-C5, C5-C6, and C6-C7 may contribute to acquired compromise of the central canal. Soft tissues: The prevertebral and paraspinous soft tissues are within normal limits. Pacemaker leads are noted at the left thoracic inlet. There is atherosclerotic calcification of the carotid bulbs. Calvarium: The visualized calvarium at the skull base appears intact. Brain parenchyma: Partially visualized brain parenchyma at the skull base is within normal limits. Sinuses and mastoids: The visualized paranasal sinuses are clear. The mastoid air cells are well pneumatized. Lung apices: Emphysematous change is noted. IMPRESSION: 1. There is no evidence of fracture or subluxation involving the cervical spine. 2. Osteopenia and spondylotic change as above. 3. Emphysema. ACT 112: Negative or not required by law. Electronically signed by: Doe Thibodeaux M.D. 07/10/2021 10:[address] 07/10/21 09:15 CT SCAN OF THE FACIAL BONES WITHOUT IV CONTRAST CLINICAL HISTORY: Fall. Left facial injury. COMPARISON STUDY: CT of the facial bones dated 03/28/2020. TECHNIQUE: High-resolution CT scan of the facial bones is performed. Images are reviewed in the axial, sagittal, and coronal planes. IV contrast was not administered for this examination. A dose lowering technique was utilized adhering to the principles of ALARA. FINDINGS: The skeletal structures are osteopenic. There is no evidence of facial bone fracture. The bony orbits are intact and the orbital contents are within normal limits noting bilateral ocular lens implants. There is chronic deformity of the nasal bones. The zygomatic arches, nasal bones, and pterygoid plates are preserved. The maxilla and mandible are intact. There are no layering blood products within the paranasal sinuses. There is trace mucosal thickening within the maxillary antra. The remaining nasal sinuses are clear. The mastoid air cells are well pneumatized. The visualized calvarium and upper cervical spine are maintained. Partially imaged brain parenchyma is within normal limits noting age-related involutional change. There are no remaining maxillary teeth. Several dental caries are noted within the remaining mandibular teeth. IMPRESSION: 1. There is no evidence of facial bone fracture. 2. Several dental caries are noted within the remaining mandibular teeth. Nonemergent follow-up with dentistry is recommended. ACT 112: Negative or not required by law. Electronically signed by: Doe Thibodeaux M.D. 07/10/2021 10:[address] 07/10/21 09:15 CT SCAN OF THE BRAIN WITHOUT IV CONTRAST CLINICAL HISTORY: Fall. COMPARISON STUDY: CT of the brain dated 05/27/2021. TECHNIQUE: Unenhanced axial CT scan of the brain is performed from the vertex to the skull base. A dose lowering technique was utilized adhering to the principles of ALARA. FINDINGS: Brain parenchyma: There is age-related involutional change noting moderate to advanced confluent subcortical and periventricular microangiopathic disease. There is no hemorrhage, mass effect, or evidence of acute territorial ischemia by CT criteria. Apple-white matter differentiation is preserved. No extra-axial fluid collection is seen. Mineralization is noted in the basal ganglia. Ventricles, sulci, cisterns: Prominent secondary to involutional change. Intracranial vasculature: There is atherosclerotic calcification of the cavernous carotid and vertebral arteries. Calvarium: The skeletal structures are osteopenic. No depressed calvarial fracture is identified. Sinuses and mastoids: The visualized paranasal sinuses are clear. The mastoid air cells are well pneumatized. Orbits: The bony orbits are grossly intact. There are bilateral ocular lens implants. IMPRESSION: There is no hemorrhage, mass effect, or evidence of acute territorial ischemia by CT criteria. ACT 112: Negative or not required by law. Electronically signed by: Doe Thibodeaux M.D. 07/10/2021 10:18 AM Chest X-Ray 07/10/21 09:18 SINGLE VIEW CHEST CLINICAL HISTORY: Fall. FINDINGS: An AP, portable, upright chest radiograph is compared to study dated 06/25/2021. Correlation is made with chest CT dated 02/28/2021 The examination is degraded by portable technique and apical lordotic positioning. The patient is status post midline sternotomy. A 2-lead cardiac ICD is unchanged in position and largely obscures the left upper chest. The heart is enlarged noting atherosclerotic calcification of the thoracic aorta. The pulmonary vasculature is noncongested. Emphysema and chronic interstitial thickening is similar to previous. There are low lung volumes with mild elevation of the right hemidiaphragm and bibasilar atelectasis. The lungs and pleural spaces are otherwise clear. No pneumothorax is seen. The skeletal structures are osteopenic. The bony thorax is grossly intact. IMPRESSION: 1. Cardiomegaly and AICD without radiographic evidence of congestive failure. 2. Emphysematous change with no airspace consolidation or large pleural effusion identified. 3. The left apical pulmonary lesion seen on the recent chest CT is not visualized by x-ray. ACT 112: Negative or not required by law. Electronically signed by: Doe Thibodeaux M.D. 07/10/2021 9:47 AM Pelvis X-Ray 07/10/21 09:18 SINGLE VIEW PELVIS CLINICAL HISTORY: Fall. FINDINGS: An AP view of the pelvis is compared to study dated 03/28/2020 and correlated with pelvic CT dated 05/28/2021. The skeletal structures are osteopenic. There is no radiographic evidence of acute fracture involving the hips or bony pelvis. Mild arthritic change and joint space narrowing seen in the hips. Degenerative sclerosis is noted in the sacroiliac joints. Fusion hardware is noted at the lumbosacral junction. The overlying soft tissues are within normal limits. Numerous phleboliths are seen in the pelvis. Surgical clips proje ct over the left groin. IMPRESSION: No acute bony abnormality is identified. Electronically signed by: Doe Thibodeaux M.D. 07/10/2021 9:41 AM Discharge Plan Visit Data Chief Complaint: Fall ED Provider: Cain Wilhelm Discharge Problem: Fall, Elevated troponin, CAD (coronary artery disease) Patient Disposition: Admitted As Inpatient Discharge Instructions Interventions: ED Discharge Assessment Last Done: 07/10/21 12:39 Discharge Problem: Fall Qualifiers: Encounter type: initial encounter Qualified Code(s): W19.XXXA - Unspecified fall, initial encounter CAD (coronary artery disease) Qualifiers: Coronary Disease-Associated Artery/Lesion type: unspecified vessel or lesion type [place] vs. transplanted heart: unspecified whether [place] or transplanted heart Associated angina: unspecified whether angina present Qualified Code(s): I25.10 - Atherosclerotic heart disease of [place] coronary artery without angina pectoris
--- NOTE | 2021-07-10 09:42 | XRay Report ---
SINGLE VIEW PELVIS CLINICAL HISTORY: Fall. FINDINGS: An AP view of the pelvis is compared to study dated 03/28/2020 and correlated with pelvic CT dated 05/28/2021. The skeletal structures are osteopenic. There is no radiographic evidence of acute fracture involving the hips or bony pelvis. Mild arthritic change and joint space narrowing seen in t he hips. Degenerative sclerosis is noted in the sacroiliac joints. Fusion hardware is noted at the zia mbosacral junction. The overlying soft tissues are within normal limits. Numerous phleboliths are see n in the pelvis. Surgical clips project over the left groin. IMPRESSION: No acute bony abnormality is identified. Electronically signed by: Doe Thibodeaux M.D. 07/10/2021 9:41 AM
--- NOTE | 2021-07-10 09:48 | XRay Report ---
SINGLE VIEW CHEST CLINICAL HISTORY: Fall. FINDINGS: An AP, portable, upright chest radiograph is compared to study dated 06/25/2021. Correlation is made with chest CT dated 02/28/2021 The examination is degraded by portable technique and apical l ordotic positioning. The patient is status post midline sternotomy. A 2-lead cardiac ICD is unchanged in position and largely obscures the left upper chest. The heart is enlarged noting atherosclerotic calcification of the thoracic aorta. The pulmonary vasculature is noncongested. Emphysema and chronic interstitial thickening is similar to previous. There are low lung volumes with mild elevation of th e right hemidiaphragm and bibasilar atelectasis. The lungs and pleural spaces are otherwise clear. No pneumothorax is seen. The skeletal structures are osteopenic. The bony thorax is grossly intact. IMPRESSION: 1. Cardiomegaly and AICD without radiographic evidence of congestive failure. 2. Emphysematous change with no airspace consolidation or large pleural effusion identified. 3. The left apical pulmonary lesion seen on the recent chest CT is not visualized by x-ray. ACT 112: Negative or not required by law. Electronically signed by: Doe Thibodeaux M.D. 07/10/2021 9:47 AM
[2021-07-10 09:53] LABS: Eosinophils # (auto) 0.03 K/uL (0-0.5); Eosinophils % (auto) 0.3 %; Hematocrit (blood only) 37.4 % (37-47); Hemoglobin 12.2 g/dL (12.0-16.0); Immature Granulocytes # (auto) 0.02 K/uL (0.00-0.02); Immature Granulocytes % (auto) 0.2 %; Lymphocytes # (auto) 1.56 K/uL (1.2-3.4); Lymphocytes % (auto) 18.2 %; Mean Corpuscular Hemoglobin 30.3 pg (25-34); Mean Corpuscular Hgb Conc 32.6 g/dL (32-36); Mean Corpuscular Volume 92.8 fL (80-100); Mean Platelet Volume 10.5 fL (7.4-10.4); Monocytes # (auto) 0.53 K/uL (0.11-0.59); Monocytes % (auto) 6.2 %; Neutrophils # (auto) 6.45 K/uL (1.4-6.5); Neutrophils % (auto) 75.1 %; Platelet Count 173 K/uL (130-400); RDW Coefficient of Variation 17.5 % (11.5-14.5); RDW Standard Deviation 59.3 fL (36.4-46.3); Red Blood Count 4.03 M/uL (4.2-5.4); White Blood Count 8.59 K/uL (4.8-10.8)
[2021-07-10 09:59] LABS: Prothrombin Time 10.7 Seconds (9.0-12.0)
--- NOTE | 2021-07-10 10:21 | CT Scan Report ---
CT SCAN OF THE BRAIN WITHOUT IV CONTRAST CLINICAL HISTORY: Fall. COMPARISON STUDY: CT of the brain dated 05/27/2021. TECHNIQUE: Unenhanced axial CT scan of the brain is performed from the vertex to the skull base. A do se lowering technique was utilized adhering to the principles of ALARA. FINDINGS: Brain parenchyma: There is age-related involutional change noting moderate to advanced confluent subc ortical and periventricular microangiopathic disease. There is no hemorrhage, mass effect, or evidenc e of acute territorial ischemia by CT criteria. Apple-white matter differentiation is preserved. No ex tra-axial fluid collection is seen. Mineralization is noted in the basal ganglia. Ventricles, sulci, cisterns: Prominent secondary to involutional change. Intracranial vasculature: There is atherosclerotic calcification of the cavernous carotid and vertebr al arteries. Calvarium: The skeletal structures are osteopenic. No depressed calvarial fracture is identified. Sinuses and mastoids: The visualized paranasal sinuses are clear. The mastoid air cells are well pneu matized. Orbits: The bony orbits are grossly intact. There are bilateral ocular lens implants. IMPRESSION: There is no hemorrhage, mass effect, or evidence of acute territorial ischemia by CT carlos neri. ACT 112: Negative or not required by law. Electronically signed by: Doe Thibodeaux M.D. 07/10/2021 10:18 AM
[2021-07-10 10:22] LABS: Albumin Globulin Ratio 1.4 (0.9-2); Albumin Level 3.9 gm/dl (3.4-5.0); Bilirubin,Total 0.4 mg/dl (0.2-1.0); Calcium 9.9 mg/dl (8.5-10.1); Creatinine Clr Calc Pharmacy 38.1 ml/min; Est GFR (African American) 63.4 ml/min; Est GFR (Non-African American) 54.7 ml/min; Globulin 2.7 gm/dl (2.5-4.0); Potassium 4.5 mmol/L (3.5-5.1); Total Protein 6.6 gm/dl (6.0-8.3)
[2021-07-10 10:23] LABS: Appearance Urine Clear (Clear); Bacteria Urine Automated Negative (Negative); Bilirubin Urine Negative (Negative); Blood Urine Negative (Negative); Color Urine Dark Yellow; Epithelial Cell Urine Auto 20-30 /lpf (0-5); Glucose Urine UA Negative (Negative); Ketones Urine Trace (Negative); Leukocyte Esterase Urine Negative (Negative); Nitrite Urine Negative (Negative); RBC Urine Automated 0-4 /hpf (0-4); Specific Gravity Urine 1.025 (1.000-1.030); Urobilinogen Urine Negative (Negative)
[2021-07-10 10:25] LABS: Protein Urine 1+ (Negative)
--- NOTE | 2021-07-10 10:25 | CT Scan Report ---
CT SCAN OF THE CERVICAL SPINE CLINICAL HISTORY: Fall. COMPARISON STUDY: CT of the cervical spine dated 05/27/2021. TECHNIQUE: CT scan of the cervical spine is performed from the skull base to the upper thoracic spine . Images are reviewed in the axial, sagittal, and coronal planes. IV contrast was not administered fo r this examination. A dose lowering technique was utilized adhering to the principles of ALARA. CT DOSE: 903.36 mGy.cm FINDINGS: Skeletal structures: The skeletal structures are osteopenic. There is no evidence of fracture or subl uxation involving the cervical spine. Vertebral body height is maintained. There is minimal anterolis thesis at C3-C4, and minimal retrolisthesis at C4-C5. Alignment is otherwise preserved. Anterior oste ophytes are seen throughout. There is straightening of the cervical lordosis. The odontoid process an d lateral masses are intact. The atlantoaxial articulation is preserved noting productive degenerativ e change. The spinous processes appear intact. There is moderate to advanced multilevel cervical spon dylosis. Uncovertebral and facet arthropathy contribute to neural foraminal narrowing at most levels. Intervertebral discs: There is moderate to advanced disc space narrowing at all cervical levels betwe en C3-C4 and C6-C7. Central canal: Posterior disc osteophyte complexes at C4-C5, C5-C6, and C6-C7 may contribute to acqui red compromise of the central canal. Soft tissues: The prevertebral and paraspinous soft tissues are within normal limits. Pacemaker leads are noted at the left thoracic inlet. There is atherosclerotic calcification of the carotid bulbs. Calvarium: The visualized calvarium at the skull base appears intact. Brain parenchyma: Partially visualized brain parenchyma at the skull base is within normal limits. Sinuses and mastoids: The visualized paranasal sinuses are clear. The mastoid air cells are well pneu matized. Lung apices: Emphysematous change is noted. IMPRESSION: 1. There is no evidence of fracture or subluxation involving the cervical spine. 2. Osteopenia and spondylotic change as above. 3. Emphysema. ACT 112: Negative or not required by law. Electronically signed by: Doe Thibodeaux M.D. 07/10/2021 10:22 AM
[2021-07-10 10:31] LABS: Troponin I High Sensitivity 172.8 pg/ml (0-14)
--- NOTE | 2021-07-10 10:47 | CT Scan Report ---
CT SCAN OF THE FACIAL BONES WITHOUT IV CONTRAST CLINICAL HISTORY: Fall. Left facial injury. COMPARISON STUDY: CT of the facial bones dated 03/28/2020. TECHNIQUE: High-resolution CT scan of the facial bones is performed. Images are reviewed in the axia l, sagittal, and coronal planes. IV contrast was not administered for this examination. A dose lower ing technique was utilized adhering to the principles of ALARA. FINDINGS: The skeletal structures are osteopenic. There is no evidence of facial bone fracture. The b demetrio orbits are intact and the orbital contents are within normal limits noting bilateral ocular lens implants. There is chronic deformity of the nasal bones. The zygomatic arches, nasal bones, and ptery goid plates are preserved. The maxilla and mandible are intact. There are no layering blood products within the paranasal sinuses. There is trace mucosal thickening within the maxillary antra. The remai guy nasal sinuses are clear. The mastoid air cells are well pneumatized. The visualized calvarium an d upper cervical spine are maintained. Partially imaged brain parenchyma is within normal limits noti ng age-related involutional change. There are no remaining maxillary teeth. Several dental caries are noted within the remaining mandibular teeth. IMPRESSION: 1. There is no evidence of facial bone fracture. 2. Several dental caries are noted within the remaining mandibular teeth. Nonemergent follow-up with dentistry is recommended. ACT 112: Negative or not required by law. Electronically signed by: Doe Thibodeaux M.D. 07/10/2021 10:44 AM
--- NOTE | 2021-07-10 11:31 | History & Physical Report ---
Date of Service July 10, 2021 Assessment & Plan (1) NSTEMI (non-ST elevated myocardial infarction): Plan: NStemi with HScTNI elevation level - ECG without acute changes - unclear at this time if rate/device related/stress related - or if she had some ischemia- as she states she has some chest pain on and off - but unclear when - Will follow HScTNI levels and ECG - She is noted to have nonsustained VT on [id number] per device interrogation - Continue BB, ASA, BP control - Cardiology consultation for further risk stratification/evaluation (2) Fall: Plan: Recent fall with bruising to face - CT and plain films as above without acute fractures or dislocations - cervical spine cleared by EMD- cervical collar removed by EMD - Neurological exam q 4 hours any change obtain non-con head CT evaluate for DASH - PT/OT consult (3) Cervical disc disease: Plan: Posterior disc osteophyte complexes at C4-C5, C5-C6, and C6-C7 moderate to advanced disc space narrowing at all cervical levels between C3-C4 and C6-C7 No medical intervention needed- PT/OT pain control (4) Paroxysmal atrial fibrillation: Plan: With watchman's device- not on chronic anticoagulation - Continue with BB - follow rates and rhythm- trend for any change needed to current pharmacological therapy (5) GERD (gastroesophageal reflux disease): Plan: Continue Carafate Continue PPI (6) Depression: Plan: Continue Seroquel continue lamotrigine Continue paroxetine (7) COPD (chronic obstructive pulmonary disease): Plan: Continue SHERITA PRN Continue BREO or equivalent Continue Cetirizine (8) CAD (coronary artery disease): Plan: CAB with CABG (2005) to SVG-OM and SVG to RPDA - Continue ASA - Cardiology consult appreciated for further risk stratication Cardiac catheterization 12/2019: Ejection fraction 25-30%. Normal left main. 70% proximal OM1 with patent graft, 80% proximal RCA with patent graft, nonobstructive disease in left anterior descending (9) Cardiomyopathy: Plan: ECHO from 10/26 with EF 25-30% with mild to moderate MR - Continue with BB and Lasix- consideration was in the past to adition of TOSHIA/ARB - this may have been limited secondary to hypotensive episodes in the past - With AICD (10) AICD (automatic cardioverter/defibrillator) present: Plan: AICD- DDDR with ATR - interrogated on admission to EMD- report on hard chart History of Present Illness Primary Care Provider: Bony Guerrero 81 YOF with medical history of: PAF(watchman's procedure), AICD secondary to CM, MR, CAD with CABG, Frequent Falls, Dementia, COVID and influenza 01/25. Patient was brought to the EMD today secondary to what she reports was a fall out of bed last night. She presents with left eye bruising, and bruising to her extremities. She reports that she falls all the time at home, but she knows she has a problem with her heart and legs. She says that at times she has some chest pain, but is unsure of when and can't characterize this. In the EMD the patient had routine labs performed to include HScTNI, ECG, interrogation of her AICD, and CT scan of head, cervical, face, Pelvis X-ray, Chest X-ray. The patient cervical spine was cleared by EMD radiographically and clinically- C- collar was removed. She had no other fractures. She was noted to have increase in her HScTNI to 172.8, with ECG without acute ST elevations or depressions. Interrogation of her AICD has nonsustained VT on , with no discharge and Anti-tachycardic response on Apr 21. Patient will be admitted for evaluation of her cardiac markers and following her ECG. Will have PT/OT consult. Did discuss the patient status with the daughter- The patient has fallen multiple times over the past 3 days at home. She is interested if rehab may help her out. Will consult Case management COVID test on admission is: NEGATIVE Allergies Allergy/AdvReac Type Severity Reaction Status Date / Time No Known Allergies Allergy Verified 07/10/21 10:55 Home Medications Medication Instructions Recorded Confirmed Type Lactobac 51-Bifidobac 1 cap PO DAILY@1200 03/28/20 07/10/21 History 3-L.lactis-S.thermophilus 4 billion cell capsule (Daily Probiotic (10 Strains)) atorvastatin 40 mg tablet 40 mg PO DAILY@1500 03/28/20 07/10/21 History biotin 10,000 mcg capsule 10,000 mcg PO DAILY 03/28/20 07/10/21 History cetirizine 10 mg tablet 10 mg PO QAM 03/28/20 07/10/21 History cyanocobalamin (vitamin B-12) 5,000 mcg PO QAM 03/28/20 07/10/21 History 5,000 mcg sublingual tablet (Vitamin B-12) furosemide 40 mg tablet 40 mg PO QAM 03/28/20 07/10/21 History lamotrigine 100 mg tablet 100 mg PO AMHS 03/28/20 07/10/21 History multivitamin with calcium and 1 tab PO DAILY 03/28/20 07/10/21 History minerals-folic acid 200 mcg tablet (One-A-Day Proactive 65 Plus) naloxegol 25 mg tablet (Movantik) 25 mg PO QAM 03/28/20 07/10/21 History oxycodone-acetaminophen 10 mg-325 1 tab PO QID PRN 03/28/20 07/10/21 History mg tablet potassium chloride 20 mEq 20 meq PO DAILY@1500 03/28/20 07/10/21 History tablet,extended release(part/cryst) rivastigmine 1 patch TRANSDERMAL DAILY 03/28/20 07/10/21 History sennosides 8.6 mg-docusate sodium 1 tab PO HS 03/28/20 07/10/21 History 50 mg tablet (Stool Softener-Laxative) baclofen 10 mg tablet 10 mg PO BID 02/08/21 07/10/21 History fluticasone furoate 100 1 inh INHALATION DAILY 02/08/21 07/10/21 History mcg-vilanterol 25 mcg/dose inhalation powder (Breo Ellipta) fluticasone propionate 50 2 spray INTRANASAL DAILY PRN 02/08/21 07/10/21 History mcg/actuation nasal spray,suspension paroxetine HCl 37.5 mg 37.5 mg PO DAILY 02/08/21 07/10/21 History tablet,extended release 24 hr quetiapine 25 mg tablet 75 mg PO HS 02/08/21 07/10/21 History sucralfate 1 gram tablet 1 g PO TID 02/27/21 07/10/21 History magnesium oxide 500 mg capsule 500 mg PO DAILY #30 cap 03/04/21 07/10/21 Rx thiamine HCl (vitamin B1) 100 mg 100 mg PO BID #60 tab 03/04/21 07/10/21 Rx tablet aspirin 81 mg tablet,delayed 81 mg PO QAM 05/28/21 07/10/21 History release lorazepam 0.5 mg tablet 0.5 mg PO .DAILY AT 1500 05/28/21 07/10/21 History metoprolol succinate 25 mg 25 mg PO QAM 05/28/21 07/10/21 History tablet,extended release 24 hr onabotulinumtoxinA 200 unit 0 unit UD 05/28/21 07/10/21 History solution for injection (Botox) pantoprazole 40 mg tablet,delayed 40 mg PO BID 05/28/21 07/10/21 History release polyethylene glycol 3350 17 17 g PO DAILY 05/28/21 07/10/21 History gram/dose oral powder (Gavilax) Past Med/Surg History Medical History Arthritis Chronic back pain Chronic systolic CHF (congestive heart failure) Dementia Depression GERD (gastroesophageal reflux disease) Goiter, nodular Hypokalemia Influenza A Myocardial infarction Nephrolithiasis Paroxysmal atrial fibrillation Peripheral neuropathy Ulcerative colitis UTI (urinary tract infection) Surgical History AICD (automatic cardioverter/defibrillator) present Hx of cholecystectomy Social History Smoking Status: Unknown if ever smoked Tobacco Type: E-cigarettes / Vaping Cigarettes Per Day: 1 pack per day; Second Hand Exposure: No; Hx Alcohol Use: No Hx Substance Use: No Preferred Language: Indonesian Communication Ability: Effective Brand Inspector Required: No Beliefs That Will Affect Care: None Current Living Situation: Alone Current Living Situation Comment: Caregivers, see CM note in EHR current occupational status: retired How many Children do You have: 3 Other Information That Helps Us Care for You: No Feels Safe at Home: Yes Safety Concerns: Feels Safe At This Time Assistive Devices: Oxygen - Continuous Review of Systems Review of Systems: REVIEW OF SYSTEMS: Limited by dementia response Constitutional: No fever, sweats or chills Eyes: No diplopia, no worsening or blurred vision ENT: normal hearing, no trouble swallowing Respiratory: No cough, sputum, dyspnea at rest or on exertion Cardiovascular: (+) chest pain comes and goes, palpitations Abdomen: No pain, nausea, vomiting, diarrhea or constipation Musculoskeletal: (+) legs get weak, frequent falls No joint pain, calf pain, swelling Neurologic: No weakness, numbness/tingling, or balance problems Psychiatric: No anxiety or depression Skin: (+) bruising Physical Exam Physical Exam: PHYSICAL EXAM: General: awake, alert, no apparent distress Head: Normocephalic, atraumatic ENT: PERRLA, EOMI, no pharyngeal exudate, mucous membranes dry Neuro: AAO x 2, Person place, speech clear strength intact bilaterally 5/5, sensation intact and equal all extremities and dermatomes, no pronator drift Chest: equal rise and fall of the chest, no accessory muscle use, no heaves or thrills, Clear to auscultation, on room air, Cardiac: irregular rate and rhythm, telemetry reviewed-V pace, skin warm dry, cap refill <3 seconds, peripheral pulses +2 no JVD, no murmur, no edema GI: NABS x 4 quadrants, soft, nontender to palpation, no rebound, guarding or tenderness : Spontaneously voiding, no pain, no CVA tenderness, Extremities: Normal inspection, no peripheral edema or erythema, calfs non tender to palpation Skin: bruise to left face, arm, lower leg Results & Data Results & Data ([facility]) Vital Signs (Past 12 Hours) Vital Signs Temp Pulse Resp BP Pulse Ox 07/10/21 10:31 78 20 140/68 99 07/10/21 10:17 66 17 117/69 99 07/10/21 09:44 77 22 120/74 100 07/10/21 09:28 96 07/10/21 09:16 98 07/10/21 08:53 36.9 C 76 16 144/71 H 98 Laboratory Results Abnormal lab results 07/10/21 07/10/21 07/10/21 Range/Units 10:07 Unknown Unknown RBC 4.03 L (4.2-5.4) M/uL RDW Std Deviation 59.3 H (36.4-46.3) fL RDW Coeff of Eric 17.5 H (11.5-14.5) % MPV 10.5 H (7.4-10.4) fL Carbon Dioxide 33 H (21-32) mmol/L BUN/Creatinine Ratio 24.0 H (10-20) Glucose 100 H (70-99(Fasting)) mg/dl AST 51 H (13-39) U/L Troponin I High Sens 172.8 H* (0-14) pg/ml Lipase 10 L (11-82) U/L Urine pH 8.0 H (4.5-7.5) Urine Protein 1+ H (Negative) Urine Ketones Trace H (Negative) U Epithel Cells (Auto) 20-30 H (0-5) /lpf Diagnostic Findings Cervical Spine CT 07/10/21 09:15 CT SCAN OF THE CERVICAL SPINE CLINICAL HISTORY: Fall. COMPARISON STUDY: CT of the cervical spine dated 05/27/2021. TECHNIQUE: CT scan of the cervical spine is performed from the skull base to the upper thoracic spine. Images are reviewed in the axial, sagittal, and coronal planes. IV contrast was not administered for this examination. A dose lowering technique was utilized adhering to the principles of ALARA. CT DOSE: 903.36 mGy.cm FINDINGS: Skeletal structures: The skeletal structures are osteopenic. There is no evidence of fracture or subluxation involving the cervical spine. Vertebral body height is maintained. There is minimal anterolisthesis at C3-C4, and minimal retrolisthesis at C4-C5. Alignment is otherwise preserved. Anterior osteophytes are seen throughout. There is straightening of the cervical lordosis. The odontoid process and lateral masses are intact. The atlantoaxial articulation is preserved noting productive degenerative change. The spinous processes appear intact. There is moderate to advanced multilevel cervical spondylosis. Uncovertebral and facet arthropathy contribute to neural foraminal narrowing at most levels. Intervertebral discs: There is moderate to advanced disc space narrowing at all cervical levels between C3-C4 and C6-C7. Central canal: Posterior disc osteophyte complexes at C4-C5, C5-C6, and C6-C7 may contribute to acquired compromise of the central canal. Soft tissues: The prevertebral and paraspinous soft tissues are within normal limits. Pacemaker leads are noted at the left thoracic inlet. There is atherosclerotic calcification of the carotid bulbs. Calvarium: The visualized calvarium at the skull base appears intact. Brain parenchyma: Partially visualized brain parenchyma at the skull base is within normal limits. Sinuses and mastoids: The visualized paranasal sinuses are clear. The mastoid air cells are well pneumatized. Lung apices: Emphysematous change is noted. IMPRESSION: 1. There is no evidence of fracture or subluxation involving the cervical spine. 2. Osteopenia and spondylotic change as above. 3. Emphysema. ACT 112: Negative or not required by law. Electronically signed by: Doe Thibodeaux M.D. 07/10/2021 10:[address] 07/10/21 09:15 CT SCAN OF THE FACIAL BONES WITHOUT IV CONTRAST CLINICAL HISTORY: Fall. Left facial injury. COMPARISON STUDY: CT of the facial bones dated 03/28/2020. TECHNIQUE: High-resolution CT scan of the facial bones is performed. Images are reviewed in the axial, sagittal, and coronal planes. IV contrast was not administered for this examination. A dose lowering technique was utilized adhering to the principles of ALARA. FINDINGS: The skeletal structures are osteopenic. There is no evidence of facial bone fracture. The bony orbits are intact and the orbital contents are within normal limits noting bilateral ocular lens implants. There is chronic deformity of the nasal bones. The zygomatic arches, nasal bones, and pterygoid plates are preserved. The maxilla and mandible are intact. There are no layering blood products within the paranasal sinuses. There is trace mucosal thickening within the maxillary antra. The remaining nasal sinuses are clear. The mastoid air cells are well pneumatized. The visualized calvarium and upper cervical spine are maintained. Partially imaged brain parenchyma is within normal limits noting age-related involutional change. There are no remaining maxillary teeth. Several dental caries are noted within the remaining mandibular teeth. IMPRESSION: 1. There is no evidence of facial bone fracture. 2. Several dental caries are noted within the remaining mandibular teeth. Nonemergent follow-up with dentistry is recommended. ACT 112: Negative or not required by law. Electronically signed by: Doe Thibodeaux M.D. 07/10/2021 10:[address] 07/10/21 09:15 CT SCAN OF THE BRAIN WITHOUT IV CONTRAST CLINICAL HISTORY: Fall. COMPARISON STUDY: CT of the brain dated 05/27/2021. TECHNIQUE: Unenhanced axial CT scan of the brain is performed from the vertex to the skull base. A dose lowering technique was utilized adhering to the principles of ALARA. FINDINGS: Brain parenchyma: There is age-related involutional change noting moderate to advanced confluent subcortical and periventricular microangiopathic disease. There is no hemorrhage, mass effect, or evidence of acute territorial ischemia by CT criteria. Apple-white matter differentiation is preserved. No extra-axial fluid collection is seen. Mineralization is noted in the basal ganglia. Ventricles, sulci, cisterns: Prominent secondary to involutional change. Intracranial vasculature: There is atherosclerotic calcification of the cavernous carotid and vertebral arteries. Calvarium: The skeletal structures are osteopenic. No depressed calvarial fracture is identified. Sinuses and mastoids: The visualized paranasal sinuses are clear. The mastoid air cells are well pneumatized. Orbits: The bony orbits are grossly intact. There are bilateral ocular lens implants. IMPRESSION: There is no hemorrhage, mass effect, or evidence of acute territorial ischemia by CT criteria. ACT 112: Negative or not required by law. Electronically signed by: Doe Thibodeaux M.D. 07/10/2021 10:18 AM Chest X-Ray 07/10/21 09:18 SINGLE VIEW CHEST CLINICAL HISTORY: Fall. FINDINGS: An AP, portable, upright chest radiograph is compared to study dated 06/25/2021. Correlation is made with chest CT dated 02/28/2021 The examination is degraded by portable technique and apical lordotic positioning. The patient is status post midline sternotomy. A 2-lead cardiac ICD is unchanged in position and largely obscures the left upper chest. The heart is enlarged noting atherosclerotic calcification of the thoracic aorta. The pulmonary vasculature is noncongested. Emphysema and chronic interstitial thickening is similar to previous. There are low lung volumes with mild elevation of the right hemidiaphragm and bibasilar atelectasis. The lungs and pleural spaces are otherwise clear. No pneumothorax is seen. The skeletal structures are osteopenic. The bony thorax is grossly intact. IMPRESSION: 1. Cardiomegaly and AICD without radiographic evidence of congestive failure. 2. Emphysematous change with no airspace consolidation or large pleural effusion identified. 3. The left apical pulmonary lesion seen on the recent chest CT is not visualized by x-ray. ACT 112: Negative or not required by law. Electronically signed by: Doe Thibodeaux M.D. 07/10/2021 9:47 AM Pelvis X-Ray 07/10/21 09:18 SINGLE VIEW PELVIS CLINICAL HISTORY: Fall. FINDINGS: An AP view of the pelvis is compared to study dated 03/28/2020 and co rrelated with pelvic CT dated 05/28/2021. The skeletal structures are osteopenic. There is no radiographic evidence of acute fracture involving the hips or bony pelvis. Mild arthritic change and joint space narrowing seen in the hips. Degenerative sclerosis is noted in the sacroiliac joints. Fusion hardware is noted at the lumbosacral junction. The overlying soft tissues are within normal limits. Numerous phleboliths are seen in the pelvis. Surgical clips project over the left groin. IMPRESSION: No acute bony abnormality is identified. Electronically signed by: Doe Thibodeaux M.D. 07/10/2021 9:41 AM Medications Administered Home Medications Lactobac 51-Bifidobac 3-L.lactis-S.thermophilus 4 billion cell capsule (Daily Probiotic (10 Strains)) 1 cap PO DAILY@1200 03/28/20 [History Confirmed 07/10/21] atorvastatin 40 mg tablet 40 mg PO DAILY@1500 03/28/20 [History Confirmed 07/10/21] biotin 10,000 mcg capsule 10,000 mcg PO DAILY 03/28/20 [History Confirmed 07/10/21] cetirizine 10 mg tablet 10 mg PO QAM 03/28/20 [History Confirmed 07/10/21] cyanocobalamin (vitamin B-12) 5,000 mcg sublingual tablet (Vitamin B-12) 5,000 mcg PO QAM 03/28/20 [History Confirmed 07/10/21] furosemide 40 mg tablet 40 mg PO QAM 03/28/20 [History Confirmed 07/10/21] lamotrigine 100 mg tablet 100 mg PO AMHS 03/28/20 [History Confirmed 07/10/21] multivitamin with calcium and minerals-folic acid 200 mcg tablet (One-A-Day Proactive 65 Plus) 1 tab PO DAILY 03/28/20 [History Confirmed 07/10/21] naloxegol 25 mg tablet (Movantik) 25 mg PO QAM 03/28/20 [History Confirmed 07/10/21] oxycodone-acetaminophen 10 mg-325 mg tablet 1 tab PO QID PRN 03/28/20 [History Confirmed 07/10/21] potassium chloride 20 mEq tablet,extended release(part/cryst) 20 meq PO DAILY@1500 03/28/20 [History Confirmed 07/10/21] rivastigmine 1 patch TRANSDERMAL DAILY 03/28/20 [History Confirmed 07/10/21] sennosides 8.6 mg-docusate sodium 50 mg tablet (Stool Softener-Laxative) 1 tab PO HS 03/28/20 [History Confirmed 07/10/21] baclofen 10 mg tablet 10 mg PO BID 02/08/21 [History Confirmed 07/10/21] fluticasone furoate 100 mcg-vilanterol 25 mcg/dose inhalation powder (Breo Ellipta) 1 inh INHALATION DAILY 02/08/21 [History Confirmed 07/10/21] fluticasone propionate 50 mcg/actuation nasal spray,suspension 2 spray INTRANASAL DAILY PRN 02/08/21 [History Confirmed 07/10/21] paroxetine HCl 37.5 mg tablet,extended release 24 hr 37.5 mg PO DAILY 02/08/21 [History Confirmed 07/10/21] quetiapine 25 mg tablet 75 mg PO HS 02/08/21 [History Confirmed 07/10/21] sucralfate 1 gram tablet 1 g PO TID 02/27/21 [History Confirmed 07/10/21] magnesium oxide 500 mg capsule 500 mg PO DAILY #30 cap 03/04/21 [Rx Confirmed 07/10/21] thiamine HCl (vitamin B1) 100 mg tablet 100 mg PO BID #60 tab 03/04/21 [Rx Confirmed 07/10/21] aspirin 81 mg tablet,delayed release 81 mg PO QAM 05/28/21 [History Confirmed 07/10/21] lorazepam 0.5 mg tablet 0.5 mg PO .DAILY AT 1500 05/28/21 [History Confirmed 07/10/21] metoprolol succinate 25 mg tablet,extended release 24 hr 25 mg PO QAM 05/28/21 [History Confirmed 07/10/21] onabotulinumtoxinA 200 unit solution for injection (Botox) 0 unit UD 05/28/21 [History Confirmed 07/10/21] pantoprazole 40 mg tablet,delayed release 40 mg PO BID 05/28/21 [History Confirmed 07/10/21] polyethylene glycol 3350 17 gram/dose oral powder (Gavilax) 17 g PO DAILY 05/28/21 [History Confirmed 07/10/21] Discontinued Medications Sodium Chloride (Nss 1000ml) 1,000 mls @ 999 mls/hr IV .Q1H1M STA Stop: 07/10/21 10:15 Last Infusion: 07/10/21 11:40 Dose: 0 mls/hr Documented by: [id number] Admin: 07/10/21 09:45 Dose: 999 mls/hr Documented by: [id number] ECG Additional Comments: Normal sinus rhythm ST & T wave abnormality, consider inferior ischemia Abnormal ECG When compared with ECG of 25-JUN-2021 04:17, Nonspecific T wave abnormality no longer evident in Anterior leads Code Status & VTE Plan Code Status CODE: DNR/DNI VTE: SCD, Lovenox 40mg SQ daily VTE Prophylaxis Plan VTE Prophylaxis will be ordered: Yes Supervising Physician Co-Signing Physician Notes 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 I verified all rivero points and agree with SHAYNA Bello with the following exceptions and/or additions: Patient presents after a fall out of bed. She does not remember what happened but knows that she hit her left side of her face. Denies chest pains or pains anywhere else except for her lower back. No shortness of breath. Has some pain around the left eye. In the ER, troponin was found to be somewhat elevated compared to previous. O- Vitals reviewed Gen: AAOx1-knew she was in the hospital but said it was [facility], did not know the date, NAD HEENT: Anicteric sclerae, EOMI, PERRL, periorbital ecchymosis on left, cervical spine collar in place CV: RRR no mgr nl S1S2 Pulm: CTAB no wcr Abd: +BS soft NT ND no masses or hernias Ext: No edema, 2+ DP pulses Skin: No rashes, warm/dry Neuro: Full strength throughout Labs, rads, ECG reviewed A/M-79-xf[age]-old female with history as above, here with fall from bed with left facial contusions, found to have mildly elevated troponin. No ventricular arrhythmias during the time of her fall. Bring in for further evaluation of cardiac status PT/OT consults and likely needs rehab placement due to history of multiple falls PG Care Time/CCT Total # of Minutes Spent Total Time Spent with Patient: Total time spent is greater than 50% in coordination of care (as documented) at patient's floor/unit and/or counseling patient: Coding Level of Care Code 07358 Initial Inpt Care Lvl 3 Diagnoses Fall W19.XXXA Encounter type: initial encounter Cervical disc disease M50.90 Paroxysmal atrial fibrillation I48.0 GERD (gastroesophageal reflux disease) K21.9 Depression F32.A COPD (chronic obstructive pulmonary disease) J44.9 CAD (coronary artery disease) I25.10 Cardiomyopathy I42.9 AICD (automatic cardioverter/defibrillator) present Z95.810 NSTEMI (non-ST elevated myocardial infarction) I21.4 (1) Fall Encounter type: initial encounter Qualified Code(s): W19.XXXA - Unspecified fall, initial encounter
[2021-07-10] MEDS ORDERED: FLUTICASONE PROPIONATE NA SPR 16 GM BTL NAE PRN (13:04)
[2021-07-10] MEDS ORDERED: ONDANSETRON INJ 2 MG/ML 2 ML VIAL IV PRN (13:04)
--- NOTE | 2021-07-10 13:14 | Electrocardiogram Report ---
Test Reason : Blood Pressure : / mmHG Vent. Rate : 076 BPM Atrial Rate : 076 BPM P-R Int : 168 ms QRS Dur : 098 ms QT Int : 396 ms P-R-T Axes : 066 053 -35 degrees QTc Int : 445 ms Normal sinus rhythm Abnormal ECG When compared with ECG of 25-JUN-2021 04:17, Nonspecific T wave abnormality no longer evident in Anterior leads Confirmed by Robbin Mcclelland ([id number]) on 07/10/2021 1:14:02 PM Referred By: Confirmed By:Robbin Mcclelland
[2021-07-10] MEDS: ENOXAPARIN INJ 40 MG/0.4 ML SYR SQ SCH (13:40)
[2021-07-10] MEDS: SUCRALFATE 1 GM TAB PO SCH ×2 (13:40→20:56)
[2021-07-10] MEDS: LORazepam 0.5 MG TAB PO SCH (14:38)
[2021-07-10] MEDS: POTASSIUM CHLORIDE CRTAB 20 MEQ TABCR PO SCH (14:46)
[2021-07-10] MEDS: oxyCODONE/ACETAMINOPHEN 10-325 TAB PO PRN (14:46)
[2021-07-10] MEDS: ATORVASTATIN 40 MG TAB PO SCH (16:46)
--- NOTE | 2021-07-10 17:58 | XCELERA ---
[id number]
[2021-07-10] MEDS: BACLOFEN 10 MG TAB PO SCH (20:55)
[2021-07-10] MEDS: THIAMINE HCL 100 MG TAB PO SCH (20:55)
[2021-07-10] MEDS: PANTOprazole 40 MG TAB PO SCH (20:56)
[2021-07-10] MEDS: lamoTRIgine 100 MG TAB PO SCH (20:56)
[2021-07-10] MEDS: DOCUSATE SODIUM/SENNA 50/8.6MG TAB PO SCH (20:56)
[2021-07-10] MEDS: QUEtiapine FUMARATE 25 MG TABLET PO SCH (20:56)
[2021-07-10] MEDS ORDERED: OLANZAPINE 2.5 MG TAB PO ONE (23:45)
[2021-07-11 07:35] LABS: Eosinophils # (auto) 0.08 K/uL (0-0.5); Eosinophils % (auto) 1.5 %; Hematocrit (blood only) 34.5 % (37-47); Immature Granulocytes # (auto) 0.02 K/uL (0.00-0.02); Immature Granulocytes % (auto) 0.4 %; Lymphocytes # (auto) 1.51 K/uL (1.2-3.4); Lymphocytes % (auto) 28.8 %; Mean Corpuscular Hemoglobin 29.3 pg (25-34); Mean Corpuscular Hgb Conc 31.9 g/dL (32-36); Mean Platelet Volume 10.2 fL (7.4-10.4); Monocytes # (auto) 0.51 K/uL (0.11-0.59); Monocytes % (auto) 9.7 %; Neutrophils # (auto) 3.13 K/uL (1.4-6.5); Neutrophils % (auto) 59.6 %; Platelet Count 149 K/uL (130-400); RDW Coefficient of Variation 17.8 % (11.5-14.5); Red Blood Count 3.75 M/uL (4.2-5.4); White Blood Count 5.25 K/uL (4.8-10.8)
[2021-07-11 07:56] LABS: BUN Creatinine Ratio 20.3 (10-20); Calcium 9.4 mg/dl (8.5-10.1); Creatinine Clr Calc Pharmacy 46.3 ml/min; Est GFR (African American) 80.2 ml/min; Est GFR (Non-African American) 69.2 ml/min; Magnesium 1.8 mg/dl (1.7-2.4)
[2021-07-11] MEDS: ASPIRIN 81 MG ECTAB PO SCH (08:31)
[2021-07-11] MEDS: SUCRALFATE 1 GM TAB PO SCH ×3 (08:31→22:22)
[2021-07-11] MEDS: FUROSEMIDE 40 MG TAB PO SCH (08:32)
[2021-07-11] MEDS: lamoTRIgine 100 MG TAB PO SCH ×2 (08:32→22:20)
[2021-07-11] MEDS: PANTOprazole 40 MG TAB PO SCH ×2 (08:32→22:21)
[2021-07-11] MEDS: BACLOFEN 10 MG TAB PO SCH ×2 (08:32→22:20)
[2021-07-11] MEDS: THIAMINE HCL 100 MG TAB PO SCH ×2 (08:32→22:22)
[2021-07-11] MEDS: CETIRIZINE HCL 10 MG TABLET PO SCH (08:33)
[2021-07-11] MEDS: METOPROLOL SUCC 25MG EXT REL TAB PO SCH (08:33)
[2021-07-11] MEDS: MAGNESIUM OXIDE 400 MG TAB PO SCH (08:33)
[2021-07-11] MEDS: PARoxetine HCl CONTROLLED REL 12.5 MG TABCR PO SCH (08:33)
[2021-07-11] MEDS: POLYETHYLENE (MIRALAX) 17 GM PACK PO SCH (08:34)
[2021-07-11] MEDS: FLUTICASONE/VILANTEROL 100/25MCG 14 PUFFS/INHALER INH SCH (08:35)
[2021-07-11] MEDS: ENOXAPARIN INJ 40 MG/0.4 ML SYR SQ SCH (14:53)
--- NOTE | 2021-07-11 15:46 | Cardiology Consultation ---
Date of Consultation July 11, 2021 Assessment & Plan (1) Elevated troponin: (2) CAD (coronary artery disease): (3) S/P CABG x 2: (4) Cardiomyopathy: (5) Fall: (6) Mitral regurgitation: (7) Dementia: (8) Nonsustained ventricular tachycardia: (9) Paroxysmal atrial fibrillation: (10) Presence of Watchman left atrial appendage closure device: ASSESSMENT/PLAN: 1. Nonsustained ventricular tachycardia: Not a new diagnosis for her. With only 1 episode detected by ICD, would not account for her multiple falls. Has known ischemic heart disease and evidence of myocardial infarction not echo, which could be a nidus for ventricular tachycardia. Would continue beta-ever and can titrate if necessary. No ventricular tachycardia noted since presentation. 2. CAD s/p CABG x 2: No reported definite angina however poor historian given baseline dementia and now unable to communicate verbally. Continue anti- platelet therapy if no contraindication. Continue statin therapy and beta- ever. 3. Elevated troponin: Not diagnostic of myocardial infarction. No ischemic evaluation recommended at this time, especially given the fact that her mental status change and frequent falls are not likely related to her cardiac issues. 4. Cardiomyopathy: Severely reduced LV systolic function in the past however improved based on current echo. Can optimize medical therapy if possible a based on outside cardiology records, she has had issues with symptomatic hypotension, which has limited optimization of her medical therapy. This can be left to her primary elevator service mechanic as an outpatient, especially with frequent falls as cannot exclude orthostatic hypotension as the cause of her symptoms. ICD in place. 5. Chronic heart failure with improved EF: She appears euvolemic. Can continue on her outpatient regimen of diuretic. 6. Chest pain: There are records indicating that she has chronic chest discomfort including a cardiology note from 11/05/2020 from her primary elevator service mechanic team. 7. Mitral regurgitation: Non severe. Has been evaluated by transesophageal echo in the past. Appears to be moderate on current echo. Follow with primary elevator service mechanic. 8. Paroxysmal atrial fibrillation: Details not well known. Watchman device in place without leak. Not on anticoagulation therapy chronically. Currently in sinus rhythm. 9. Dementia/mental status change: Has baseline dementia and has episodes of worsening disorientation per her daughter. Being nonverbal is new and may be related to medication administration during this hospital stay, per primary service. Will defer her mental status evaluation to primary service. 10. Disposition: Please call with any other questions or concerns. She does not appear to be experiencing any significant acute cardiology issue. She should follow-up with her primary elevator service mechanic on discharge. Patient care discussed with Dr. Lujan of the primary hospitalist service. Thank you for allowing me to participate in the care of your patient. Please call for any other questions or concerns. Sincerely, Max Maria M.D. History of Present Illness Reason for Consultation: Nonsustained VT and elevated troponin Requesting Physician: Nura Bello Attending Physician: Cain Lujan DO History of Present Illness Ms. Keita his an 81-year-old female with a history significant for CAD s/p CABG, cardiomyopathy, paroxysmal atrial fibrillation, mitral regurgitation, watchman device, dual chamber ICD ([employer]), dementia and systolic CHF. She was admitted on 07/10/2021 after a fall. Her primary elevator service mechanic is Dr. Garcia. She has been seen in this facility by Dr. Perez in the past. She has had the following studies/procedures: 1. CABG x 2 in [place] 2004. 2. Watchman device implantation August 2019. 3. Nuclear stress December 2019: EF 27%. 4. Cardiac catheterization December 2019: Mild LAD disease. Proximal OM1 70%. SVG to OM patent. Proximal RCA 80%. SVG to PDA patent. EF 25-30%. 5. ROXANE 10/14/2020 [facility]: EF 25-30%. Watchman closure device visualized. No evidence of thrombus or significant angelo device leak. Mild to moderate MR. Mild to moderate TR. Unfortunately, her mental status does not allow for her to provide any history. When asked questions, she moved her lips at times and sometimes mumbles with no discernible words. When discussing this with Dr. Lujan of the primary hospitalist service, her mental status has been like this since receiving olanzapine at 12:12 a.m. this morning. According to the history and physical she was brought to the emergency department due to falling out of bed the previous night, bruising the left side of her face and extremities. She reportedly mention that she falls often at home. There were apparently multiple falls over the 3 days prior to presentation. She reported some degree of chest pain at times but was unable to further characterize it. She underwent imaging including the C-spine, head, pelvis, with no fractures reported. High sensitivity troponin was elevated and interrogation of her ICD reported 1 episode of nonsustained ventricular tachycardia on 07/07/2021, but it did not require any therapy. She has a history of nonsustained ventricular tachycardia per records and ICD interrogation but only 1 episode since last interrogation a few months ago. I spoke with her daughter via telephone. She states that she has been falling. After falling, she seems to be more distant oriented compared to baseline for approximately 1 week. She is able to speak however, which is different than her current status. She admits that when she has any medication that can be sedating, it tends to affect her more significantly. She is on oxycodone chronically and therefore if she has to use another medication for anxiety or such, she will typically reduce or hold oxycodone. Review of systems: Unobtainable due to patient's mental status. Family history: Unobtainable. Social history: Unobtainable due to current mental status. Allergies Allergy/AdvReac Type Severity Reaction Status Date / Time No Known Allergies Allergy Verified 07/10/21 10:55 Home Medications Medication Instructions Recorded Confirmed Type Lactobac 51-Bifidobac 1 cap PO DAILY@1200 03/28/20 07/10/21 History 3-L.lactis-S.thermophilus 4 billion cell capsule (Daily Probiotic (10 Strains)) atorvastatin 40 mg tablet 40 mg PO DAILY@1500 03/28/20 07/10/21 History biotin 10,000 mcg capsule 10,000 mcg PO DAILY 03/28/20 07/10/21 History cetirizine 10 mg tablet 10 mg PO QAM 03/28/20 07/10/21 History cyanocobalamin (vitamin B-12) 5,000 mcg PO QAM 03/28/20 07/10/21 History 5,000 mcg sublingual tablet (Vitamin B-12) furosemide 40 mg tablet 40 mg PO QAM 03/28/20 07/10/21 History lamotrigine 100 mg tablet 100 mg PO AMHS 03/28/20 07/10/21 History multivitamin with calcium and 1 tab PO DAILY 03/28/20 07/10/21 History minerals-folic acid 200 mcg tablet (One-A-Day Proactive 65 Plus) naloxegol 25 mg tablet (Movantik) 25 mg PO QAM 03/28/20 07/10/21 History oxycodone-acetaminophen 10 mg-325 1 tab PO QID PRN 03/28/20 07/10/21 History mg tablet potassium chloride 20 mEq 20 meq PO DAILY@1500 03/28/20 07/10/21 History tablet,extended release(part/cryst) rivastigmine 1 patch TRANSDERMAL DAILY 03/28/20 07/10/21 History sennosides 8.6 mg-docusate sodium 1 tab PO HS 03/28/20 07/10/21 History 50 mg tablet (Stool Softener-Laxative) baclofen 10 mg tablet 10 mg PO BID 02/08/21 07/10/21 History fluticasone furoate 100 1 inh INHALATION DAILY 02/08/21 07/10/21 History mcg-vilanterol 25 mcg/dose inhalation powder (Breo Ellipta) fluticasone propionate 50 2 spray INTRANASAL DAILY PRN 02/08/21 07/10/21 History mcg/actuation nasal spray,suspension paroxetine HCl 37.5 mg 37.5 mg PO DAILY 02/08/21 07/10/21 History tablet,extended release 24 hr quetiapine 25 mg tablet 75 mg PO HS 02/08/21 07/10/21 History sucralfate 1 gram tablet 1 g PO TID 02/27/21 07/10/21 History magnesium oxide 500 mg capsule 500 mg PO DAILY #30 cap 03/04/21 07/10/21 Rx thiamine HCl (vitamin B1) 100 mg 100 mg PO BID #60 tab 03/04/21 07/10/21 Rx tablet aspirin 81 mg tablet,delayed 81 mg PO QAM 05/28/21 07/10/21 History release lorazepam 0.5 mg tablet 0.5 mg PO .DAILY AT 1500 05/28/21 07/10/21 History metoprolol succinate 25 mg 25 mg PO QAM 05/28/21 07/10/21 History tablet,extended release 24 hr onabotulinumtoxinA 200 unit 0 unit UD 05/28/21 07/10/21 History solution for injection (Botox) pantoprazole 40 mg tablet,delayed 40 mg PO BID 05/28/21 07/10/21 History release polyethylene glycol 3350 17 17 g PO DAILY 05/28/21 07/10/21 History gram/dose oral powder (Gavilax) Patient History Medical History Arthritis CAD (coronary artery disease) Cardiomyopathy Chronic back pain Chronic systolic CHF (congestive heart failure) Dementia Depression GERD (gastroesophageal reflux disease) Goiter, nodular Hypokalemia Influenza A Mitral regurgitation Myocardial infarction Nephrolithiasis Nonsustained ventricular tachycardia Paroxysmal atrial fibrillation Peripheral neuropathy Presence of Watchman left atrial appendage closure device Ulcerative colitis UTI (urinary tract infection) Surgical History (Updated 07/11/21 @ 16:19 by Phani Maria MD) AICD (automatic cardioverter/defibrillator) present Hx of cholecystectomy S/P CABG x 2 Social History Smoking Status: Unknown if ever smoked Tobacco Type: E-cigarettes / Vaping Cigarettes Per Day: 1 pack per day; Second Hand Exposure: No; Hx Alcohol Use: No Hx Substance Use: No Preferred Language: Niuean Communication Ability: Effective [employer] Required: No Beliefs That Will Affect Care: None Current Living Situation: Alone Current Living Situation Comment: Caregivers, see CM note in EHR current occupational status: retired How many Children do You have: 3 Other Information That Helps Us Care for You: No Feels Safe at Home: Yes Safety Concerns: Feels Safe At This Time Assistive Devices: Oxygen - Continuous Physical Exam Physical Exam: Gen.: No acute distress. Awake. HEENT: Anicteric sclera. Neck: No JVD. No bruits. Normal carotid upstrokes bilaterally. Cardiac: PMI was nondisplaced. No ventricular heave. Regular. Normal S1-S2. No murmurs, rubs, or gallops. Pulmonary: Clear to auscultation bilaterally without wheezes, rales, or rhonchi. Abdomen: Soft, nontender, nondistended, with normoactive bowel sounds. No bruits noted. Extremities: 2+ radial pulses bilaterally. 2+ posterior tibialis pulses bilaterally. No edema or cyanosis. Psychiatric: Affect appears appropriate. Results & Data ([facility]) Vital Signs (Past 12 Hours) Vital Signs Temp Pulse Pulse Resp BP Pulse Ox 07/11/21 14:09 36.4 C L 63 20 102/64 98 07/11/21 10:58 36.2 C L 76 20 123/79 94 07/11/21 07:27 36.4 C L 73 20 116/70 99 07/11/21 06:03 70 07/11/21 03:50 36.6 C 80 16 128/77 99 Laboratory Results Laboratory Results - last 24 hr 07/10/21 07/11/21 07/11/21 18:36 00:29 07:17 WBC RBC Hgb Hct MCV MCH MCHC RDW Std Deviation RDW Coeff of Eric Plt Count MPV Immature Gran % (Auto) Neut % (Auto) Lymph % (Auto) Wise % (Auto) Eos % (Auto) Baso % (Auto) Neut # (Auto) Lymph # (Auto) Wise # (Auto) Eos # (Auto) Baso # (Auto) Immature Gran # (Auto) Sodium 142 Potassium 4.0 Chloride 108 H Carbon Dioxide 29 Anion Gap 5 BUN 16 Creatinine 0.79 Est Cr Clr Drug Dosing 46.3 Est GFR ( Amer) 80.2 Est GFR (Non-Af Amer) 69.2 BUN/Creatinine Ratio 20.3 H Glucose 102 H Calcium 9.4 Magnesium 1.8 Total Creatine Kinase 1900 H Troponin I High Sens 173.0 H* 133.0 H* D 07/11/21 07:17 WBC 5.25 RBC 3.75 L Hgb 11.0 L Hct 34.5 L MCV 92.0 MCH 29.3 MCHC 31.9 L RDW Std Deviation 60.0 H RDW Coeff of Eric 17.8 H Plt Count 149 MPV 10.2 Immature Gran % (Auto) 0.4 Neut % (Auto) 59.6 Lymph % (Auto) 28.8 Wise % (Auto) 9.7 Eos % (Auto) 1.5 Baso % (Auto) 0.0 Neut # (Auto) 3.13 Lymph # (Auto) 1.51 Wise # (Auto) 0.51 Eos # (Auto) 0.08 Baso # (Auto) 0.00 Immature Gran # (Auto) 0.02 Sodium Potassium Chloride Carbon Dioxide Anion Gap BUN Creatinine Est Cr Clr Drug Dosing Est GFR ( Amer) Est GFR (Non-Af Amer) BUN/Creatinine Ratio Glucose Calcium Magnesium Total Creatine Kinase Troponin I High Sens Diagnostic Findings Telemetry personally reviewed: Sinus rhythm. No arrhythmia. ICD interrogation report reviewed: 1 episode of nonsustained ventricular tachycardia since last interrogation. As noted above in HPI. No therapy administered. Head CT 07/10/2021: No hemorrhage, mass effect, or evidence of acute territorial ischemia. Chest x-ray 07/10/2021: Cardiomegaly. Emphysematous change. No congestion. Echo images personally reviewed from 07/10/2021: Probable mildly reduced LV systolic function. Akinesis of the basal inferior wall. Hypokinesis of the inferolateral wall and mid to distal inferior wall. Moderate mitral regurgitation. ECGs personally reviewed: ECG 07/10/2021 at 9:09 a.m.: Sinus rhythm 76 beats per minute. Inferior T-wave abnormality. ECG 07/11/2021 at 6:42 a.m.: Sinus rhythm 82 beats per minute. PVCs. Inferior T-wave abnormality. Medications Administered Current Inpatient Medications Aspirin (Aspirin 81 Mg Ectab) [facility] [place] Stop: 08/10/21 08:59 Last Admin: 07/11/21 08:31 Dose: 81 mg Documented by: Atorvastatin Calcium (Atorvastatin 40 Mg Tab) 40 mg PO DAILY@1500 [facility] Stop: 08/09/21 14:59 Last Admin: 07/11/21 16:20 Dose: 40 mg Documented by: Baclofen (Baclofen 10 Mg Tab) 10 mg PO BID [facility] Stop: 08/09/21 20:59 Last Admin: 07/11/21 08:32 Dose: 10 mg Documented by: Cetirizine HCl (Cetirizine Hcl 10 Mg Tablet) 10 mg PO QAM [facility] Stop: 08/10/21 08:59 Last Admin: 07/11/21 08:33 Dose: 10 mg Documented by: Enoxaparin Sodium (Enoxaparin Inj 40 Mg/0.4 Ml Syr) 40 mg SQ Q24H [facility] Stop: 08/09/21 13:59 Last Admin: 07/11/21 14:53 Dose: 40 mg Documented by: Fluticasone Propionate (Fluticasone Propionate Na Spr 16 Gm Btl) 2 sprays MANJIT DAILY PRN PRN Reason: Congestion Stop: 08/09/21 13:03 Fluticasone/Vilanterol (Fluticasone/Vilanterol 100/25mcg 14 Puffs/Inhaler) 1 puffs INH DAILY [facility] Stop: 08/10/21 08:59 Last Admin: 07/11/21 08:35 Dose: 1 puffs Documented by: Furosemide (Furosemide 40 Mg Tab) 40 mg PO QAM [facility] Stop: 08/10/21 08:59 Last Admin: 07/11/21 08:32 Dose: 40 mg Documented by: Lamotrigine (Lamotrigine 100 Mg Tab) 100 mg PO AMHS [facility] Stop: 08/09/21 20:59 Last Admin: 07/11/21 08:32 Dose: 100 mg Documented by: Lorazepam (Lorazepam 0.5 Mg Tab) 0.5 mg PO DAILY@1500 [facility] Stop: 08/09/21 14:59 Last Admin: 07/11/21 16:22 Dose: 0.5 mg Documented by: Magnesium Oxide (Magnesium Oxide 400 Mg Tab) 400 mg PO DAILY [facility] Stop: 08/10/21 08:59 Last Admin: 07/11/21 08:33 Dose: 400 mg Documented by: Metoprolol Succinate (Metoprolol Succ 25mg Ext Rel Tab) [facility] [place] Stop: 08/10/21 08:59 Last Admin: 07/11/21 08:33 Dose: 25 mg Documented by: Miscellaneous (Naloxegol [Movantik] 25 Mg Tablet ~ Order Awaiting Action) 1 ea N/A QS [facility] Stop: 08/09/21 15:59 Last Admin: 07/11/21 16:19 Dose: Not Given Documented by: Miscellaneous (Rivastigmine 9.5 Mg/24 Hr Patch~ Order Awaiting Action) 1 ea N/A QS [facility] Stop: 08/09/21 15:59 Last Admin: 07/11/21 16:19 Dose: Not Given Documented by: Ondansetron HCl (Ondansetron Inj 2 Mg/Ml 2 Ml Vial) 4 mg IV Q6H PRN PRN Reason: Nausea Stop: 08/09/21 13:03 Oxycodone/Acetaminophen (Oxycodone/Acetaminophen 10-325 Tab) 1 tab PO QID PRN PRN Reason: Pain Stop: 07/24/21 13:03 Last Admin: 07/10/21 14:46 Dose: 1 tab Documented by: Pantoprazole Sodium (Pantoprazole 40 Mg Tab) 40 mg PO BID [facility] Stop: 08/09/21 20:59 Last Admin: 07/11/21 08:32 Dose: 40 mg Documented by: Paroxetine HCl (Paroxetine Hcl Controlled Rel 12.5 Mg Tabcr) 37.5 mg PO DAILY [facility] Stop: 08/10/21 08:59 Last Admin: 07/11/21 08:33 Dose: 37.5 mg Documented by: Polyethylene Glycol (Polyethylene (Miralax) 17 Gm Pack) 17 gm PO DAILY [facility] Stop: 08/10/21 08:59 Last Admin: 07/11/21 08:34 Dose: 17 gm Documented by: Potassium Chloride (Potassium Chloride Crtab 20 Meq Tabcr) 20 meq PO DAILY@1500 [facility] Stop: 08/09/21 14:59 Last Admin: 07/11/21 16:19 Dose: 20 meq Documented by: Quetiapine Fumarate (Quetiapine Fumarate 25 Mg Tablet) 75 mg PO HS [facility] Stop: 08/09/21 20:59 Last Admin: 07/10/21 20:56 Dose: 75 mg Documented by: Senna/Docusate Sodium (Docusate Sodium/Senna 50/8.6mg Tab) 1 tab PO HS [facility] Stop: 08/09/21 20:59 Last Admin: 07/10/21 20:56 Dose: 1 tab Documented by: Sucralfate (Sucralfate 1 Gm Tab) 1 gm PO TID [facility] Stop: 08/09/21 13:59 Last Admin: 07/11/21 14:54 Dose: 1 gm Documented by: Thiamine HCl (Thiamine Hcl 100 Mg Tab) 100 mg PO BID [facility] Stop: 08/09/21 20:59 Last Admin: 07/11/21 08:32 Dose: 100 mg Documented by: PG Care Time/CCT Total # of Minutes Spent Total Time Spent with Patient: Total time spent is greater than 50% in coordination of care (as documented) at patient's floor/unit and/or counseling patient: Coding Level of Care Code 43758 Initial Inpt Care Lvl 3 Diagnoses Elevated troponin R77.8 CAD (coronary artery disease) I25.10 Associated angina: unspecified whether angina present Coronary Disease-Associated Artery/Lesion type: unspecified vessel or lesion type [place] vs. transplanted heart: unspecified whether [place] or transplanted heart S/P CABG x 2 Z95.1 Cardiomyopathy I42.9 Fall W19.XXXA Encounter type: initial encounter Mitral regurgitation I34.0 Dementia F03.91 Dementia behavioral disturbance: with behavioral disturbance Dementia type: unspecified type Nonsustained ventricular tachycardia I47.2 Paroxysmal atrial fibrillation I48.0 Presence of Watchman left atrial appendage closure device Z95.818 (1) CAD (coronary artery disease) Associated angina: unspecified whether angina present Coronary Disease- Associated Artery/Lesion type: unspecified vessel or lesion type [place] vs. transplanted heart: unspecified whether [place] or transplanted heart Qualified Code(s): I25.10 - Atherosclerotic heart disease of [place] coronary artery without angina pectoris (2) Fall Encounter type: initial encounter Qualified Code(s): W19.XXXA - Unspecified fall, initial encounter (3) Dementia Dementia behavioral disturbance: with behavioral disturbance Dementia type: unspecified type Qualified Code(s): F03.91 - Unspecified dementia with behavioral disturbance
[2021-07-11] MEDS: POTASSIUM CHLORIDE CRTAB 20 MEQ TABCR PO SCH (16:19)
[2021-07-11] MEDS: ATORVASTATIN 40 MG TAB PO SCH (16:20)
[2021-07-11] MEDS: LORazepam 0.5 MG TAB PO SCH (16:22)
--- NOTE | 2021-07-11 17:56 | Hospitalist Progress Note ---
Date of Service July 11, 2021 Assessment & Plan (1) Fall: Plan: Patient is an 81 y/o female with pmh of dementia, CHF, COPD, paroxysmal afib, watchman and AICD who presented after a fall and increased high sensitivity troponin and CK. ECG without acute changes. Fall: Recent fall with bruising to face - Etiology ddx polypharmacy, arrhythmia, fall due to tripping, dehydration - Avoid additional sedating PRN medications due to suspicion for polypharmacy - Confirm home medications with daughter/pharmacy - CT and plain films as above without acute fractures or dislocations - cervical spine cleared by EMD- cervical collar removed by EMD - increased CK likely due to fall - Neurological exam q 4 hours any change obtain non-con head CT evaluate for DASH - PT/OT consult - repeat CBC, CMP, mag, EKG tomorrow AM Non-sustained vtach: - ECG without acute changes, high sensitivity troponin 183->133 today - On admission, she stated she has some chest pain on and off - but unclear when. Not able to corroborate today - She is noted to have nonsustained VT on [id number] per device interrogation - Continue BB, ASA, BP control - Appreciate cardiology consultation: "No ischemic evaluation recommended at this time, especially given the fact that her mental status change and frequent falls are not likely related to her cardiac issues." Paroxysmal atrial fibrillation: With watchman's device- not on chronic anticoagulation - Continue with BB - follow rates and rhythm- trend for any change needed to current pharmacological therapy - currently sinus rhythm GERD (gastroesophageal reflux disease): - Continue Carafate - Continue PPI Depression/Dementia: - Continue Seroquel - continue lamotrigine - Continue paroxetine COPD (chronic obstructive pulmonary disease): - Continue SHERITA PRN - Continue BREO or equivalent - Continue Cetirizine - On 4L O2 NC saturation at 98%, CO2 at 29 CAD (coronary artery disease): - CAB with CABG (2005) to SVG-OM and SVG to RPDA - Continue ASA Cardiac catheterization 12/2019: Ejection fraction 25-30%. Normal left main. 70% proximal OM1 with patent graft, 80% proximal RCA with patent graft, nonobstructive disease in left anterior descending Echo from 07/10: EF 50-55% Cardiomyopathy: ECHO from 10/26 with EF 25-30% with mild to moderate MR - Continue with BB and Lasix- consideration was in the past to adition of TOSHIA/ARB - this may have been limited secondary to hypotensive episodes in the past - With AICD AICD (automatic cardioverter/defibrillator) present: AICD- DDDR with ATR - interrogated on admission to [facility]- report on hard chart Cervical disc disease: Posterior disc osteophyte complexes at C4-C5, C5-C6, and C6-C7 moderate to advanced disc space narrowing at all cervical levels between C3-C4 and C6-C7 No medical intervention needed- PT/OT pain control Code Status: DNR/DNI DVT prophylaxis: lovenox FEN/GI: heart healthy minced and moist Dispo: med/surg with tele (2) Dementia: (3) Chronic systolic CHF (congestive heart failure): (4) COPD (chronic obstructive pulmonary disease): (5) Paroxysmal atrial fibrillation: (6) Nonsustained ventricular tachycardia: Admission and Anticipated Discharge Date Admission Date: July 10, 2021 Supervising Physician Co-Signing Physician Notes I personally examined the patient and verified all rivero points of history and exam, discussed case, and agree with decision making with Beth Celeste MS4 no meaningful HPI or ROS obtainable viatls noted nad heent nc bruising L eyelid eomi mmm breathing unlabored no accessory muscles good effort skin no rashes no pallor or icterus neuro no focal deficits fall, AMS - polypharmacy, maybe dehydration; fortunately after discussion w cardiology rhythm issues do not appear to be culprit. PT/OT eval and treat, obtain collateral hx from family, work on safe discharge planning - likely will need facility. probably wean/taper/transition of home meds otherwise as above Subjective Overnight, patient received 1 dose of olanzapine. Patient was not coherent or oriented to person place or time this morning so was not able to elicit any history. Per cardiology who spoke to the patient's daughter, this is not her baseline mental status. She has been falling and more disoriented for about 1 week but has been verbal at home. Daughter states that she is usually sensitive to sedating medications. Unclear which medications patient is actually taking at home. Review of Systems Review of Systems: unable to elicit coherent response Physical Exam Physical Exam: physical exam limited by patient being unable to respond to commands Constitutional: patient laying comfortably in bed, in no apparent distress Respiratory: normal respiratory effort Skin: warm and dry. Bruise around left scientologist/eye Neurologic: States that her name is Anton, correct , unable to recall year or location. Results & Data Results & Data ([facility]) Vital Signs (Past 12 Hours) Vital Signs Temp Pulse Pulse Resp BP Pulse Ox 07/11/21 14:09 36.4 C L 63 20 102/64 98 07/11/21 10:58 36.2 C L 76 20 123/79 94 07/11/21 07:27 36.4 C L 73 20 116/70 99 07/11/21 06:03 70 (1) Dementia Dementia behavioral disturbance: with behavioral disturbance Dementia type: unspecified type Qualified Code(s): F03.91 - Unspecified dementia with behavioral disturbance (2) Fall Encounter type: initial encounter Qualified Code(s): W19.XXXA - Unspecified fall, initial encounter
--- NOTE | 2021-07-11 18:44 | Billing Data ---
Date of Service July 11, 2021 Coding Level of Care Code 60775 Subseq Hosp Care Lvl 3
[2021-07-11] MEDS: QUEtiapine FUMARATE 25 MG TABLET PO SCH (22:21)
[2021-07-11] MEDS: DOCUSATE SODIUM/SENNA 50/8.6MG TAB PO SCH (22:21)
[2021-07-12 07:36] LABS: Basophils # (auto) 0.01 K/uL (0-0.2); Basophils % (auto) 0.2 %; Eosinophils # (auto) 0.07 K/uL (0-0.5); Eosinophils % (auto) 1.2 %; Hematocrit (blood only) 34.2 % (37-47); Hemoglobin 11.3 g/dL (12.0-16.0); Immature Granulocytes # (auto) 0.01 K/uL (0.00-0.02); Immature Granulocytes % (auto) 0.2 %; Lymphocytes # (auto) 1.36 K/uL (1.2-3.4); Lymphocytes % (auto) 23.9 %; Mean Corpuscular Hemoglobin 30.1 pg (25-34); Mean Corpuscular Volume 91.2 fL (80-100); Mean Platelet Volume 9.8 fL (7.4-10.4); Monocytes # (auto) 0.52 K/uL (0.11-0.59); Monocytes % (auto) 9.1 %; Neutrophils # (auto) 3.72 K/uL (1.4-6.5); Neutrophils % (auto) 65.4 %; Platelet Count 157 K/uL (130-400); RDW Coefficient of Variation 17.5 % (11.5-14.5); Red Blood Count 3.75 M/uL (4.2-5.4); White Blood Count 5.69 K/uL (4.8-10.8)
[2021-07-12 07:54] LABS: BUN Creatinine Ratio 14.6 (10-20); Calcium 9.4 mg/dl (8.5-10.1); Creatinine Clr Calc Pharmacy 41.1 ml/min; Est GFR (African American) 76.7 ml/min; Est GFR (Non-African American) 66.2 ml/min; Potassium 3.9 mmol/L (3.5-5.1)
[2021-07-12] MEDS: lamoTRIgine 100 MG TAB PO SCH ×2 (08:14→21:17)
[2021-07-12] MEDS: METOPROLOL SUCC 25MG EXT REL TAB PO SCH (08:14)
[2021-07-12] MEDS: BACLOFEN 10 MG TAB PO SCH ×2 (08:14→21:16)
[2021-07-12] MEDS: THIAMINE HCL 100 MG TAB PO SCH ×2 (08:14→21:17)
[2021-07-12] MEDS: ASPIRIN 81 MG ECTAB PO SCH (08:15)
[2021-07-12] MEDS: PARoxetine HCl CONTROLLED REL 12.5 MG TABCR PO SCH (08:15)
[2021-07-12] MEDS: CETIRIZINE HCL 10 MG TABLET PO SCH (08:15)
[2021-07-12] MEDS: MAGNESIUM OXIDE 400 MG TAB PO SCH (08:15)
[2021-07-12] MEDS: FUROSEMIDE 40 MG TAB PO SCH (08:15)
[2021-07-12] MEDS: SUCRALFATE 1 GM TAB PO SCH ×3 (08:16→21:18)
[2021-07-12] MEDS: PANTOprazole 40 MG TAB PO SCH ×2 (08:16→21:18)
[2021-07-12] MEDS: FLUTICASONE/VILANTEROL 100/25MCG 14 PUFFS/INHALER INH SCH (08:16)
[2021-07-12] MEDS: POLYETHYLENE (MIRALAX) 17 GM PACK PO SCH (08:19)
[2021-07-12] MEDS ORDERED: DICLOFENAC SOD 1% GEL 100 GM TUBE EXT PRN (11:46)
--- NOTE | 2021-07-12 14:45 | Hospitalist Progress Note ---
Date of Service July 12, 2021 Assessment & Plan (1) Fall: Plan: Patient is an 81 y/o female with pmh of dementia, CHF, COPD, paroxysmal afib, watchman and AICD who presented after a fall and increased high sensitivity troponin and CK. ECG without acute changes. Fall: Recent fall with bruising to face - Etiology ddx polypharmacy, arrhythmia, fall due to tripping or deconditioning, dehydration, UTI - Avoid additional sedating PRN medications due to suspicion for polypharmacy - Confirm home medications with daughter/pharmacy - CT and plain films as above without acute fractures or dislocations - cervical spine cleared by EMD- cervical collar removed by EMD - increased CK likely due to fall - Neurological exam q 4 hours any change obtain non-con head CT evaluate for DASH - PT/OT consult - fell today while transferring to the bedside commode by herself - fell to her knees likely due to weakness/loss of balance - no arrhythmias on telemetry - did not hit head, no tenderness on knees or head on exam - reiterated importance of using call parry when she needs to use the bathroom and to not attempt to walk without assistance - bed alarm set, patient provided with diaper brief due to significant urinary urgency - orthostatic BPs ordered - repeat CBC, CMP, mag, EKG tomorrow AM UTI: - patient endorses dysuria, frequency, and urinary incontinence for a few days - per daughter patient has had daily falls starting this weekend which is more than her baseline occasional falls, mainly when patient is trying to transfer herself to her bedside commode without help - UA indicative of UTI with +leuk est, WBC, bacteria without epithelial contamination. trace RBCs - Urine culture pending - Ordered blood cultures pre-abx treatment - Start 1g ceftriaxone IV Non-sustained vtach: - ECG without acute changes, high sensitivity troponin 183->133 on admission - On admission, she stated she has some chest pain on and off - but unclear when. Denies chest pain today - She is noted to have nonsustained VT on [id number] per device interrogation - Continue BB, ASA, BP control - Appreciate cardiology consultation: "No ischemic evaluation recommended at this time, especially given the fact that her mental status change and frequent falls are not likely related to her cardiac issues." Paroxysmal atrial fibrillation: With watchman's device- not on chronic anticoagulation - Continue with BB - follow rates and rhythm- trend for any change needed to current pharmacological therapy - currently sinus rhythm GERD (gastroesophageal reflux disease): - Continue Carafate - Continue PPI Depression/Dementia: - Decrease Seroquel from 75 to 50mg PO HS due to potential polypharmacy/sedation etiology for falls - continue lamotrigine - Continue paroxetine - history of neurosyphilis - Per daughter, patient's mental status waxes and wanes, recently more . States patient got Covid in January and has been declining mentally since then - daughter has POA and prefers rehab faciilty over a senior living for a few weeks while she prepares to move the patient into her home COPD (chronic obstructive pulmonary disease): - Continue SHERITA PRN - Continue BREO or equivalent - Continue Cetirizine - On 4L O2 NC saturation at 98%, CO2 at 29 CAD (coronary artery disease): - CAB with CABG (2005) to SVG-OM and SVG to RPDA - Continue ASA Cardiac catheterization 12/2019: Ejection fraction 25-30%. Normal left main. 70% proximal OM1 with patent graft, 80% proximal RCA with patent graft, nonobstructive disease in left anterior descending Echo from 07/10: EF 50-55% Cardiomyopathy: ECHO from 10/26 with EF 25-30% with mild to moderate MR - Continue with BB and Lasix- consideration was in the past to adition of TOSHIA/ARB - this may have been limited secondary to hypotensive episodes in the past - With AICD AICD (automatic cardioverter/defibrillator) present: AICD- DDDR with ATR - interrogated on admission to [facility]- report on hard chart Cervical disc disease: Posterior disc osteophyte complexes at C4-C5, C5-C6, and C6-C7 moderate to advanced disc space narrowing at all cervical levels between C3-C4 and C6-C7 No medical intervention needed- PT/OT pain control Code Status: DNR/DNI DVT prophylaxis: lovenox FEN/GI: heart healthy minced and moist Dispo: med/surg with tele (2) Dementia: (3) Chronic systolic CHF (congestive heart failure): (4) COPD (chronic obstructive pulmonary disease): (5) Paroxysmal atrial fibrillation: (6) Nonsustained ventricular tachycardia: Admission and Anticipated Discharge Date Admission Date: July 10, 2021 Supervising Physician Co-Signing Physician Notes I personally examined the patient and verified all rivero points of history and exam, discussed case, and agree with decision making with Beth Celeste MS4 more alert, HPI and ROS of questionable veracity but does have some R sided neck pain viatls noted nad heent nc bruising L eyelid eomi mmm breathing unlabored no accessory muscles good effort skin no rashes no pallor or icterus neuro no focal deficits ost/msk - R sided Cspine paraspinals high tone/tender/decreased ROM - counterstrain and direct myofascial - tissue texture improved some although tenderness did not fall, AMS - polypharmacy (possible toxic encephalopathy due to polypharmacy), maybe dehydration; fortunately after discussion w cardiology rhythm issues do not appear to be culprit. PT/OT eval and treat, needs safe discharge planning - likely will need facility. slowly wean/taper/transition of home meds (for now reduce seroquel to 50 HS) otherwise as above Subjective Today patient is more oriented (+person, place but not time or reason for hospitalization). She states that she is in the hospital to treat her neck pain and arrived by bus (she arrived by ambulance after a fall). Today her main complaint is neck pain 08/14. She does endorse burning when she pees with frequency and incontinence. Patient fell today while transferring to her bedside commode without assistance. She fell on her knees and did not injure her knees or head. Called patient's daughter Kristine Dick ([phone]) today. Per daughter, patient's mental status waxes and wanes, recently more . States patient got Covid in January and has been declining mentally since then. Daughter has POA and prefers rehab facility over a senior living for a few weeks while she prepares to move the patient into her home. Currently the patient lives alone in [place] with home nursing that is unreliable. Historically, patient has refused going to rehab facility. Daughter states that the patient has had rare falls and has had neck and back pain for years treated with oxycodone, injections, lumbar fusion and past spinal cord stimulator. However, patient started having daily falls starting this past weekend when trying to get to the bedside commode without assistance and had been found on the floor several times. Review of Systems Constitutional: no fever or chills Respiratory: no cough, chronic SOB Cardiovascular: Additional Comments: no chest pain or palpitations Gastrointestinal: no abdominal pain, no constipation or diarrhea Genitourinary: dysuria, increased frequency and urgency with urinary incontinence Musculoskeletal: pain in neck 7/10 when moving head Physical Exam Constitutional: laying comfortably in bed, no acute distress Eyes: bruising on left muslim, bruising extending to left eyelid, no increase in swelling Neck: tenderness to palpation along right paraspinals in neck, no point tenderness over bony prominences Respiratory: normal respiratory effort, decreased lung sounds bilaterally in base of lungs, no crackles Cardiovascular: RRR no murmurs of gallops appreciated due to distant heart sounds Gastrointestinal (Abdomen): some pain to palpation in lower abdomen, unable to localize to specific quadrant, active bowel sounds Results & Data Results & Data ([facility]) Vital Signs (Past 12 Hours) Vital Signs Temp Pulse Pulse Resp BP BP Pulse Ox 07/12/21 11:41 36.7 C 74 18 120/65 96 07/12/21 08:00 36.7 C 67 18 146/60 H 95 07/12/21 07:44 79 07/12/21 04:00 36.7 C 74 18 144/87 H 95 Laboratory Results Laboratory Results - last 24 hr 07/12/21 07/12/21 07/12/21 07:15 07:15 15:50 WBC 5.69 RBC 3.75 L Hgb 11.3 L Hct 34.2 L MCV 91.2 MCH 30.1 MCHC 33.0 RDW Std Deviation 59.0 H RDW Coeff of Eric 17.5 H Plt Count 157 MPV 9.8 Immature Gran % (Auto) 0.2 Neut % (Auto) 65.4 Lymph % (Auto) 23.9 [place] % (Auto) 9.1 Eos % (Auto) 1.2 Baso % (Auto) 0.2 Neut # (Auto) 3.72 Lymph # (Auto) 1.36 [place] # (Auto) 0.52 Eos # (Auto) 0.07 Baso # (Auto) 0.01 Immature Gran # (Auto) 0.01 Sodium 140 Potassium 3.9 Chloride 106 Carbon Dioxide 31 Anion Gap 3 BUN 12 Creatinine 0.82 Est Cr Clr Drug Dosing 41.1 Est GFR ( Amer) 76.7 Est GFR (Non-Af Amer) 66.2 BUN/Creatinine Ratio 14.6 Glucose 91 Calcium 9.4 Magnesium 2.0 Urine Color Yellow Urine Appearance Clear Urine pH 5.0 Ur Specific [place] 1.010 Urine Protein Negative Urine Glucose (UA) Negative Urine Ketones Negative Urine Blood Trace H Urine Nitrite Negative Urine Bilirubin Negative Urine Urobilinogen Negative Ur Leukocyte Esterase 2+ H Urine WBC (Auto) >30 H Urine RBC (Auto) 0-4 U Hyaline Cast (Auto) 1-5 U Epithel Cells (Auto) 0-5 Urine Bacteria (Auto) 4+ H (1) Dementia Dementia behavioral disturbance: with behavioral disturbance Dementia type: unspecified type Qualified Code(s): F03.91 - Unspecified dementia with behavioral disturbance (2) Fall Encounter type: initial encounter Qualified Code(s): W19.XXXA - Unspecified fall, initial encounter
[2021-07-12] MEDS: LORazepam 0.5 MG TAB PO SCH (15:30)
[2021-07-12] MEDS: ATORVASTATIN 40 MG TAB PO SCH (15:31)
[2021-07-12] MEDS: POTASSIUM CHLORIDE CRTAB 20 MEQ TABCR PO SCH (15:32)
[2021-07-12] MEDS: ENOXAPARIN INJ 40 MG/0.4 ML SYR SQ SCH (15:33)
[2021-07-12 16:25] LABS: Appearance Urine Clear (Clear); Bacteria Urine Automated 4+ (Negative); Bilirubin Urine Negative (Negative); Blood Urine Trace (Negative); Color Urine Yellow; Epithelial Cell Urine Auto 0-5 /lpf (0-5); Glucose Urine UA Negative (Negative); Ketones Urine Negative (Negative); Leukocyte Esterase Urine 2+ (Negative); Nitrite Urine Negative (Negative); Protein Urine Negative (Negative); RBC Urine Automated 0-4 /hpf (0-4); Urobilinogen Urine Negative (Negative); WBC Urine Automated >30 /hpf (0-5)
[2021-07-12] MEDS ORDERED: cefTRIAXone SODIUM 1,000 MG in DEXTROSE 5% 50 ML IV STA (17:30)
--- NOTE | 2021-07-12 18:29 | Billing Data ---
Date of Service July 12, 2021 Coding Level of Care Code 45571 Subseq Hosp Care Lvl 3
[2021-07-12] MEDS: QUEtiapine FUMARATE 25 MG TABLET PO SCH (21:18)
[2021-07-12] MEDS: DOCUSATE SODIUM/SENNA 50/8.6MG TAB PO SCH (21:23)
--- NOTE | 2021-07-13 06:12 | Electrocardiogram Report ---
Test Reason : Blood Pressure : / mmHG Vent. Rate : 082 BPM Atrial Rate : 085 BPM P-R Int : 172 ms QRS Dur : 092 ms QT Int : 360 ms P-R-T Axes : 079 092 -55 degrees QTc Int : 420 ms Normal sinus rhythm with frequent Premature ventricular complexes Rightward axis Abnormal ECG When compared with ECG of 10-JUL-2021 09:09, Premature ventricular complexes are now Present Confirmed by Phani Maria ([id number]) on 07/13/2021 6:11:38 AM Referred By: REFERRED SELF Confirmed By:Phani Maria
[2021-07-13 06:57] LABS: Basophils # (auto) 0.01 K/uL (0-0.2); Basophils % (auto) 0.2 %; Eosinophils # (auto) 0.11 K/uL (0-0.5); Eosinophils % (auto) 2.1 %; Hematocrit (blood only) 37.6 % (37-47); Hemoglobin 12.1 g/dL (12.0-16.0); Immature Granulocytes # (auto) 0.01 K/uL (0.00-0.02); Immature Granulocytes % (auto) 0.2 %; Lymphocytes # (auto) 1.43 K/uL (1.2-3.4); Lymphocytes % (auto) 27.7 %; Mean Corpuscular Hemoglobin 29.1 pg (25-34); Mean Corpuscular Hgb Conc 32.2 g/dL (32-36); Mean Corpuscular Volume 90.4 fL (80-100); Mean Platelet Volume 10.4 fL (7.4-10.4); Monocytes # (auto) 0.55 K/uL (0.11-0.59); Monocytes % (auto) 10.6 %; Neutrophils # (auto) 3.06 K/uL (1.4-6.5); Neutrophils % (auto) 59.2 %; Platelet Count 184 K/uL (130-400); RDW Coefficient of Variation 17.2 % (11.5-14.5); RDW Standard Deviation 57.4 fL (36.4-46.3); Red Blood Count 4.16 M/uL (4.2-5.4); White Blood Count 5.17 K/uL (4.8-10.8)
[2021-07-13 07:14] LABS: BUN Creatinine Ratio 14.8 (10-20); Calcium 9.8 mg/dl (8.5-10.1); Creatinine Clr Calc Pharmacy 41.6 ml/min; Est GFR (African American) 77.8 ml/min; Est GFR (Non-African American) 67.2 ml/min; Magnesium 2.2 mg/dl (1.7-2.4)
--- NOTE | 2021-07-13 08:01 | Hospitalist Progress Note ---
Date of Service July 13, 2021 Assessment & Plan (1) Fall: Plan: Patient is an 81 y/o female with pmh of dementia, CHF, COPD, paroxysmal afib, watchman and AICD who presented after a fall and increased high sensitivity troponin and CK. ECG without acute changes. Fall: Recent fall with bruising to face - Etiology ddx polypharmacy, arrhythmia, fall due to tripping or deconditioning, dehydration, UTI - Avoid additional sedating PRN medications due to suspicion for polypharmacy - CT and plain films as above without acute fractures or dislocations - cervical spine cleared by EMD- cervical collar removed by EMD - increased CK likely due to fall - Neurological exam q 4 hours any change obtain non-con head CT evaluate for DASH - PT/OT consult - fell on 07/12 while transferring to the bedside commode by herself - fell to her knees likely due to weakness/loss of balance - no arrhythmias on telemetry - did not hit head, no tenderness on knees or head on exam - reiterated importance of using call parry when she needs to use the bathroom and to not attempt to walk without assistance - bed alarm set, patient provided with diaper brief due to significant urinary urgency - orthostatic BPs ordered -med rec done with [facility] [place] in [place]: per pharmacy pt is prescribed Lamictal 100mg BID not QD, lorazepam 0.5 PRN not scheduled QD, and baclofen 20 BID not 10mg BID. Also on movantic 25mg QD and exelon patch 9.5mg BID outpatient. Other home meds correct in chart. -re-start UTI: - patient endorses dysuria, frequency, and urinary incontinence for a few days - per daughter patient has had daily falls starting this weekend which is more than her baseline occasional falls, mainly when patient is trying to transfer herself to her bedside commode without help - UA indicative of UTI with +leuk est, WBC, bacteria without epithelial contamination. trace RBCs - Urine culture with gram negative bacilli - Blood cultures pre-abx treatment pending - Day 2 of 1g ceftriaxone IV Non-sustained vtach: - ECG without acute changes, high sensitivity troponin 183->133 on admission - On admission, she stated she has some chest pain on and off - but unclear when. Denies chest pain today - She is noted to have nonsustained VT on [id number] per device interrogation - Continue BB, ASA, BP control - Appreciate cardiology consultation: "No ischemic evaluation recommended at this time, especially given the fact that her mental status change and frequent falls are not likely related to her cardiac issues." Paroxysmal atrial fibrillation: With watchman's device- not on chronic anticoagulation - Continue with BB - follow rates and rhythm- trend for any change needed to current pharmacological therapy - currently sinus rhythm GERD (gastroesophageal reflux disease): - Continue Carafate - Continue PPI Depression/Dementia: - On 07/12, decreased Seroquel from 75 to 50mg PO HS due to potential polypharmacy/sedation etiology for falls - continue lamotrigine - Continue paroxetine - history of neurosyphilis - Per daughter, patient's mental status waxes and wanes, recently more . States patient got Covid in January and has been declining mentally since then - daughter has POA and prefers rehab facility over a shelter for a few weeks while she prepares to move the patient into her home COPD (chronic obstructive pulmonary disease): - Continue SHERITA PRN - Continue BREO or equivalent - Continue Cetirizine - On 4L O2 NC saturation at 98%, CO2 at 29 CAD (coronary artery disease): - CAB with CABG (2005) to SVG-OM and SVG to RPDA - Continue ASA Cardiac catheterization 12/2019: Ejection fraction 25-30%. Normal left main. 70% proximal OM1 with patent graft, 80% proximal RCA with patent graft, nonobstructive disease in left anterior descending Echo from 07/10: EF 50-55% Cardiomyopathy: ECHO from 10/26 with EF 25-30% with mild to moderate MR - Continue with BB and Lasix- consideration was in the past to adition of TOSHIA/ARB - this may have been limited secondary to hypotensive episodes in the past - With AICD AICD (automatic cardioverter/defibrillator) present: AICD- DDDR with ATR - interrogated on admission to [facility]- report on hard chart Cervical disc disease: Posterior disc osteophyte complexes at C4-C5, C5-C6, and C6-C7 moderate to advanced disc space narrowing at all cervical levels between C3-C4 and C6-C7 No medical intervention needed- PT/OT pain control Code Status: DNR/DNI DVT prophylaxis: lovenox FEN/GI: heart healthy minced and moist Dispo: med/surg with tele (2) Dementia: (3) Chronic systolic CHF (congestive heart failure): (4) COPD (chronic obstructive pulmonary disease): (5) Paroxysmal atrial fibrillation: (6) Nonsustained ventricular tachycardia: Admission and Anticipated Discharge Date Admission Date: July 10, 2021 Supervising Physician Co-Signing Physician Notes I personally examined the patient and verified all rivero points of history and exam, discussed case, and agree with decision making with O Roula MS4 alert and disoriented. worried about family. worried about coming to the hospital. hard to redirect. viatls noted awake and dysphoric, no physical distress. heent nc healing bruising L eye mmm breathing unlabored no accessory muscles good effort skin no rashes no pallor or icterus fall, AMS - polypharmacy (possible toxic encephalopathy due to polypharmacy), maybe dehydration; fortunately after discussion w cardiology rhythm issues do not appear to be culprit. PT/OT eval and treat, needs safe discharge planning - likely will need facility. slowly wean/taper/transition of home meds (but follow dysphoria - very common with delirium but if it is a persistent mood then may need to consider risk/benefit of increasing meds again) otherwise as above, pending placement Subjective No acute events overnight. Patient states she slept well. Her main complaint this morning is 7/10 pain in her neck and upper back which is chronic. She also has chronic SOB. No headache, chest pain, abdominal pain. Still having dysuria and urinary urgency but no fever or chill. Review of Systems Constitutional: no fever or chills Respiratory: chronic SOB, no cough Cardiovascular: Additional Comments: no palpitations o chest pain Gastrointestinal: no abdominal pain. +constipation Genitourinary: dysuria, urgency and frequency with urinary incontinence Musculoskeletal: 7/10 pain in neck and upper back Physical Exam Constitutional: resting comfortably in bed, no acute distress Respiratory: normal respiratory effort, clear to auscultation bilaterally, decreased breath sounds in lower lobes bilaterally Cardiovascular: RRR no murmurs of gallops appreciated due to distant heart sounds Gastrointestinal (Abdomen): some tenderness to palpation in lower abdomen, soft with no masses Musculoskeletal: tenderness to palpation of right paraspinals in neck, no point tenderness over body prominences in neck Neurologic: oriented to person, not oriented to place, time, or reason for hospitalization Results & Data Results & Data ([facility]) Vital Signs (Past 12 Hours) Vital Signs Temp Pulse Pulse Resp BP BP Pulse Ox 07/13/21 07:58 74 07/13/21 03:00 36 C L 64 20 129/69 95 07/12/21 23:00 36.4 C L 60 18 113/72 96 07/12/21 22:18 65 (1) Dementia Dementia behavioral disturbance: with behavioral disturbance Dementia type: unspecified type Qualified Code(s): F03.91 - Unspecified dementia with behavioral disturbance (2) Fall Encounter type: initial encounter Qualified Code(s): W19.XXXA - Unspecified fall, initial encounter
[2021-07-13] MEDS: METOPROLOL SUCC 25MG EXT REL TAB PO SCH (08:55)
[2021-07-13] MEDS: lamoTRIgine 100 MG TAB PO SCH ×2 (08:55→20:24)
[2021-07-13] MEDS: THIAMINE HCL 100 MG TAB PO SCH ×2 (08:55→20:25)
[2021-07-13] MEDS: PARoxetine HCl CONTROLLED REL 12.5 MG TABCR PO SCH (08:55)
[2021-07-13] MEDS: ASPIRIN 81 MG ECTAB PO SCH (08:55)
[2021-07-13] MEDS: MAGNESIUM OXIDE 400 MG TAB PO SCH (08:55)
[2021-07-13] MEDS: FUROSEMIDE 40 MG TAB PO SCH (08:56)
[2021-07-13] MEDS: FLUTICASONE/VILANTEROL 100/25MCG 14 PUFFS/INHALER INH SCH (08:56)
[2021-07-13] MEDS: SUCRALFATE 1 GM TAB PO SCH ×3 (08:56→20:25)
[2021-07-13] MEDS: CETIRIZINE HCL 10 MG TABLET PO SCH (08:56)
[2021-07-13] MEDS: PANTOprazole 40 MG TAB PO SCH ×2 (08:56→20:24)
[2021-07-13] MEDS: BACLOFEN 10 MG TAB PO SCH (08:59)
[2021-07-13] MEDS: POLYETHYLENE (MIRALAX) 17 GM PACK PO SCH (08:59)
--- NOTE | 2021-07-13 14:03 | Electrocardiogram Report ---
Test Reason : Blood Pressure : / mmHG Vent. Rate : 068 BPM Atrial Rate : 068 BPM P-R Int : 160 ms QRS Dur : 098 ms QT Int : 406 ms P-R-T Axes : 073 075 -34 degrees QTc Int : 431 ms Sinus rhythm with occasional Premature ventricular complexes Low voltage QRS T wave abnormality, consider inferior ischemia Abnormal ECG When compared with ECG of 11-JUL-2021 06:42, No significant change Confirmed by Phani Maria ([id number]) on 07/13/2021 2:03:08 PM Referred By: REFERRED SELF Confirmed By:Phani Maria
[2021-07-13] MEDS: ATORVASTATIN 40 MG TAB PO SCH (16:01)
[2021-07-13] MEDS: ENOXAPARIN INJ 40 MG/0.4 ML SYR SQ SCH (16:01)
[2021-07-13] MEDS: POTASSIUM CHLORIDE CRTAB 20 MEQ TABCR PO SCH (16:01)
[2021-07-13] MEDS: LORazepam 0.5 MG TAB PO SCH (16:01)
[2021-07-13] MEDS: DICLOFENAC SOD 1% GEL 100 GM TUBE EXT SCH ×3 (16:02→23:13)
--- NOTE | 2021-07-13 16:14 | Billing Data ---
Date of Service July 13, 2021 Coding Level of Care Code 94956 Subseq Hosp Care Lvl 3
[2021-07-13] MEDS: cefTRIAXone SODIUM 1,000 MG in DEXTROSE 5% 50 ML IV SCH (17:32)
[2021-07-13] MEDS: QUEtiapine FUMARATE 25 MG TABLET PO SCH (20:23)
[2021-07-13] MEDS: BACLOFEN 20 MG TAB PO SCH (20:23)
[2021-07-13] MEDS: DOCUSATE SODIUM/SENNA 50/8.6MG TAB PO SCH (20:26)
[2021-07-14] MEDS: DICLOFENAC SOD 1% GEL 100 GM TUBE EXT SCH ×4 (06:03→23:43)
[2021-07-14 06:49] LABS: Hemoglobin 11.4 g/dL (12.0-16.0); Mean Corpuscular Hemoglobin 29.9 pg (25-34); Mean Corpuscular Hgb Conc 31.7 g/dL (32-36); Mean Corpuscular Volume 94.5 fL (80-100); Mean Platelet Volume 10.2 fL (7.4-10.4); Platelet Count 150 K/uL (130-400); RDW Coefficient of Variation 17.4 % (11.5-14.5); RDW Standard Deviation 59.9 fL (36.4-46.3); Red Blood Count 3.81 M/uL (4.2-5.4); White Blood Count 4.97 K/uL (4.8-10.8)
[2021-07-14 07:05] LABS: BUN Creatinine Ratio 18.6 (10-20); Calcium 9.5 mg/dl (8.5-10.1); Creatinine Clr Calc Pharmacy 39.2 ml/min; Est GFR (African American) 72.4 ml/min; Est GFR (Non-African American) 62.5 ml/min; Potassium 4.1 mmol/L (3.5-5.1)
[2021-07-14] MEDS: lamoTRIgine 100 MG TAB PO SCH ×2 (07:37→20:14)
[2021-07-14] MEDS: PARoxetine HCl CONTROLLED REL 12.5 MG TABCR PO SCH (07:38)
[2021-07-14] MEDS: CETIRIZINE HCL 10 MG TABLET PO SCH (07:38)
[2021-07-14] MEDS: MAGNESIUM OXIDE 400 MG TAB PO SCH (07:39)
[2021-07-14] MEDS: BACLOFEN 20 MG TAB PO SCH ×2 (07:41→20:15)
[2021-07-14] MEDS: ASPIRIN 81 MG ECTAB PO SCH (07:41)
[2021-07-14] MEDS: METOPROLOL SUCC 25MG EXT REL TAB PO SCH (07:41)
[2021-07-14] MEDS: THIAMINE HCL 100 MG TAB PO SCH ×2 (07:42→20:13)
[2021-07-14] MEDS: SUCRALFATE 1 GM TAB PO SCH ×3 (07:42→20:14)
[2021-07-14] MEDS: FUROSEMIDE 40 MG TAB PO SCH (07:42)
[2021-07-14] MEDS: POLYETHYLENE (MIRALAX) 17 GM PACK PO SCH (07:43)
[2021-07-14] MEDS: FLUTICASONE/VILANTEROL 100/25MCG 14 PUFFS/INHALER INH SCH (07:43)
[2021-07-14] MEDS: PANTOprazole 40 MG TAB PO SCH ×2 (07:43→20:14)
--- NOTE | 2021-07-14 11:23 | Hospitalist Progress Note ---
Date of Service July 14, 2021 Assessment & Plan (1) Fall: Plan: 81 y/o female with PMHx of dementia, CHF, COPD, paroxysmal afib, watchman and AICD who presented after a fall and increased high sensitivity troponin and CK. ECG without acute changes. Fall: Recent fall with bruising to face - Etiology ddx polypharmacy, arrhythmia, fall due to tripping or deconditioning, dehydration, UTI -Avoid additional sedating PRN medications due to suspicion for polypharmacy - CT and plain on admission without acute fractures or dislocations - PT/OT consult - Patient with fall in hospital on 07/12 when transferring to the bedside commode by herself - fell to her knees likely due to weakness/loss of balance; immediately evaluated by hospitalist team; patient with no arrhythmias on telemetry, did not hit head, no tenderness on knees or head on exam - reiterated importance of using call parry when she needs to use the bathroom and to not attempt to walk without assistance - bed alarm set, patient provided with diaper brief due to significant urinary urgency - orthostatic BPs ordered -med rec done with [facility] - [place] in [place]: per pharmacy pt is prescribed Lamictal 100mg BID not QD, lorazepam 0.5 PRN not scheduled QD, and baclofen 20 BID not 10mg BID. Also on movantic 25mg QD and exelon patch 9.5mg BID outpatient. Other home meds correct in chart. UTI: - patient endorses dysuria, frequency, and urinary incontinence for a few days, improving - per daughter patient has had daily falls starting this weekend which is more than her baseline occasional falls, mainly when patient is trying to transfer herself to her bedside commode without help - UA indicative of UTI with +leuk est, WBC, bacteria without epithelial contamination. trace RBCs - Urine culture + pansensitive E. coli - Blood cultures pre-abx treatment with no growth to date. -Day 3 of 1g ceftriaxone IV (will complete 5 day course with last day of tx being 07/18/21) Non-sustained vtach: - ECG without acute changes, high sensitivity troponin 183->133 on admission - On admission, she stated she has some chest pain on and off - but unclear when. No recurrent complaints of chest pain. - Previously noted to have nonsustained VT on per device interrogation - Continue BB, ASA, BP control - Appreciate cardiology consultation: "No ischemic evaluation recommended at this time, especially given the fact that her mental status change and frequent falls are not likely related to her cardiac issues." Paroxysmal atrial fibrillation: With watchman's device- not on chronic anticoagulation - Continue with BB - currently sinus rhythm GERD (gastroesophageal reflux disease): - Continue Carafate - Continue PPI Depression/Dementia: - On 07/12, decreased Seroquel from 75 to 50mg PO HS due to potential polypharmacy/sedation etiology for falls - continue lamotrigine - Continue paroxetine - history of neurosyphilis - Per daughter, patient's mental status waxes and wanes, recently more . States patient got Covid in January and has been declining mentally since then - daughter has POA and prefers rehab facility over a chcf for a few weeks while she prepares to move the patient into her home COPD (chronic obstructive pulmonary disease): - Continue SHERITA PRN - Continue BREO or equivalent - Continue Cetirizine - On 4L O2 NC saturation at 98%, CO2 at 29 CAD (coronary artery disease) and cardiomyopathy: - CAB with CABG (2005) to SVG-OM and SVG to RPDA - Continue ASA - Cardiac catheterization 12/2019: Ejection fraction 25-30%. Normal left main. 70% proximal OM1 with patent graft, 80% proximal RCA with patent graft, nonobstructive disease in left anterior descending - ECHO from 10/26 with EF 25-30% with mild to moderate MR - Echo from 07/10/21: EF 50-55% - Continue with BB and Lasix- consideration was in the past to addition of TOSHIA/ARB - this may have been limited secondary to hypotensive episodes in the past - With AICD AICD (automatic cardioverter/defibrillator) present: AICD- DDDR with ATR: interrogated on admission to [facility]- report on hard chart Cervical disc disease: - Posterior disc osteophyte complexes at C4-C5, C5-C6, and C6-C7. Moderate to advanced disc space narrowing at all cervical levels between C3-C4 and C6-C7 - No medical intervention needed - Continue PT/OT and pain control Code Status: DNR/DNI DVT prophylaxis: lovenox FEN/GI: heart healthy minced and moist Dispo: med/surg; awaiting placement (2) UTI (urinary tract infection): (3) Nonsustained ventricular tachycardia: (4) Paroxysmal atrial fibrillation: (5) GERD (gastroesophageal reflux disease): (6) Depression: (7) Dementia: (8) Chronic systolic CHF (congestive heart failure): (9) COPD (chronic obstructive pulmonary disease): (10) Cervical disc disease: (11) AICD (automatic cardioverter/defibrillator) present: Admission and Anticipated Discharge Date Admission Date: July 10, 2021 Supervising Physician Co-Signing Physician Notes I personally examined the patient and verified all rivero points of history and exam, discussed case, and agree with decision making with Dr Rios alert and disoriented. eating. not upset today. viatls noted awake pleasant nad. heent nc healing bruising L eye mmm breathing unlabored no accessory muscles good effort skin no rashes no pallor or icterus fall, AMS - polypharmacy (possible toxic encephalopathy due to polypharmacy), maybe dehydration; fortunately after discussion w cardiology rhythm issues do not appear to be culprit. PT/OT eval and treat, needs safe discharge planning - likely will need facility - referral process pending. slowly wean/taper/transition of home meds (but follow dysphoria - very common with delirium but if it is a persistent mood then may need to consider risk/benefit of increasing meds again - not a problem today though so continue on current dosing) otherwise as above, pending placement Subjective Patient seen and evaluated at bedside this AM. No acute events overnight. Eating well and sleeping well. Complains of neck pain that is unchanged. Patient states dysuria has resolved. Patient with no new concerns or questions. Review of Systems Review of Systems: See HPI Physical Exam Physical Exam: GENERAL: No acute distress. Resting comfortably in bed. Vital signs reviewed. HENT: Moist mucous membranes. RESPIRATORY: Unlabored respirations. Able to speak in full sentences without increased work of breathing. ABDOMEN: Soft, non-tender and non-distended. Normal bowel sounds. EXTREMITIES: No edema. Non-tender. SKIN: Warm, dry. NEUROLOGIC: Alert and oriented x2 (person and place). Not oriented to time or situation. PSYCHIATRIC: Cooperative. Mood labile. Results & Data Results & Data ([facility]) Vital Signs (Past 12 Hours) Vital Signs Temp Pulse Pulse Resp BP Pulse Ox 07/14/21 07:27 62 07/14/21 07:24 36.5 C 65 20 122/70 92 07/14/21 03:47 37 C 58 L 20 120/64 96 Laboratory Results 07/14/21 07/14/21 Range/Units 05:48 05:48 WBC 4.97 (4.8-10.8) K/uL RBC 3.81 L (4.2-5.4) M/uL Hgb 11.4 L (12.0-16.0) g/dL Hct 36.0 L (37-47) % MCV 94.5 (80-100) fL MCH 29.9 (25-34) pg MCHC 31.7 L (32-36) g/dL RDW Std Deviation 59.9 H (36.4-46.3) fL RDW Coeff of Eric 17.4 H (11.5-14.5) % Plt Count 150 (130-400) K/uL MPV 10.2 (7.4-10.4) fL Sodium 139 (136-145) mmol/L Potassium 4.1 (3.5-5.1) mmol/L Chloride 105 (98-107) mmol/L Carbon Dioxide 28 (21-32) mmol/L Anion Gap 6 (3-11) BUN 16 (6-23) mg/dl Creatinine 0.86 (0.6-1.2) mg/dl Est Cr Clr Drug Dosing 39.2 ml/min Est GFR ( Amer) 72.4 ml/min Est GFR (Non-Af Amer) 62.5 ml/min BUN/Creatinine Ratio 18.6 (10-20) Glucose 97 (70-99(Fasting)) mg/dl Calcium 9.5 (8.5-10.1) mg/dl Resident Activity Tracking Resident Involvement: Resident Care Provided Care Provided: Adult Hospital Medicine (1) Dementia Dementia behavioral disturbance: with behavioral disturbance Dementia type: unspecified type Qualified Code(s): F03.91 - Unspecified dementia with behavioral disturbance (2) Fall Encounter type: initial encounter Qualified Code(s): W19.XXXA - Unspecified fall, initial encounter
[2021-07-14] MEDS: ENOXAPARIN INJ 40 MG/0.4 ML SYR SQ SCH (13:18)
[2021-07-14] MEDS: ATORVASTATIN 40 MG TAB PO SCH (15:22)
[2021-07-14] MEDS: POTASSIUM CHLORIDE CRTAB 20 MEQ TABCR PO SCH (15:23)
[2021-07-14] MEDS: LORazepam 0.5 MG TAB PO SCH (15:32)
[2021-07-14] MEDS: cefTRIAXone SODIUM 1,000 MG in DEXTROSE 5% 50 ML IV SCH ×2 (17:13→17:50)
--- NOTE | 2021-07-14 17:49 | Billing Data ---
Date of Service July 14, 2021 Coding Level of Care Code 28384 Subseq Hosp Care Lvl 2
[2021-07-14] MEDS: QUEtiapine FUMARATE 25 MG TABLET PO SCH (20:14)
[2021-07-14] MEDS: DOCUSATE SODIUM/SENNA 50/8.6MG TAB PO SCH (20:14)
[2021-07-15] MEDS: DICLOFENAC SOD 1% GEL 100 GM TUBE EXT SCH ×4 (05:57→23:24)
[2021-07-15] MEDS: PANTOprazole 40 MG TAB PO SCH ×2 (08:39→21:37)
[2021-07-15] MEDS: lamoTRIgine 100 MG TAB PO SCH ×2 (08:39→21:35)
[2021-07-15] MEDS: FUROSEMIDE 40 MG TAB PO SCH (08:39)
[2021-07-15] MEDS: BACLOFEN 20 MG TAB PO SCH ×2 (08:40→21:34)
[2021-07-15] MEDS: PARoxetine HCl CONTROLLED REL 12.5 MG TABCR PO SCH (08:40)
[2021-07-15] MEDS: THIAMINE HCL 100 MG TAB PO SCH ×2 (08:40→21:36)
[2021-07-15] MEDS: POLYETHYLENE (MIRALAX) 17 GM PACK PO SCH (08:40)
[2021-07-15] MEDS: CETIRIZINE HCL 10 MG TABLET PO SCH (08:40)
[2021-07-15] MEDS: FLUTICASONE/VILANTEROL 100/25MCG 14 PUFFS/INHALER INH SCH (08:40)
[2021-07-15] MEDS: METOPROLOL SUCC 25MG EXT REL TAB PO SCH (08:40)
[2021-07-15] MEDS: ASPIRIN 81 MG ECTAB PO SCH (08:40)
[2021-07-15] MEDS: SUCRALFATE 1 GM TAB PO SCH ×3 (08:41→21:37)
[2021-07-15] MEDS: MAGNESIUM OXIDE 400 MG TAB PO SCH (08:41)
--- NOTE | 2021-07-15 09:34 | Hospitalist Progress Note ---
Date of Service July 15, 2021 Assessment & Plan (1) Fall: Plan: 81 y/o female with PMHx of dementia, CHF, COPD, paroxysmal afib, watchman and AICD who presented after a fall and increased high sensitivity troponin and CK. ECG without acute changes. Fall: Recent fall with bruising to face - Etiology ddx polypharmacy, arrhythmia, fall due to tripping or deconditioning, dehydration, UTI -Avoid additional sedating PRN medications due to suspicion for polypharmacy - CT and plain film on admission without acute fractures or dislocations - PT/OT consult - Patient with fall in hospital on 07/12 when transferring to the bedside commode by herself - fell to her knees likely due to weakness/loss of balance; immediately evaluated by hospitalist team; patient with no arrhythmias on telemetry, did not hit head, no tenderness on knees or head on exam - reiterated importance of using call parry when she needs to use the bathroom and to not attempt to walk without assistance - bed alarm set, patient provided with diaper brief due to significant urinary urgency - orthostatic BPs normal -[place] [facility] [place]: per pharmacy pt is prescribed Lamictal 100mg BID not QD, lorazepam 0.5 PRN not scheduled QD, and baclofen 20 BID not 10mg BID. Also on movantic 25mg QD and exelon patch 9.5mg BID outpatient. Other home meds correct in chart. UTI: - patient endorses dysuria, frequency, and urinary incontinence for a few days, improving - per daughter patient has had daily falls starting this weekend which is more than her baseline occasional falls, mainly when patient is trying to transfer herself to her bedside commode without help - UA indicative of UTI with +leuk est, WBC, bacteria without epithelial contamination. trace RBCs - Urine culture + pansensitive E. coli - Blood cultures pre-abx treatment with no growth to date. -Day 4/5 of 1g ceftriaxone IV (last day of tx being 07/16/21) Non-sustained vtach: - ECG without acute changes, high sensitivity troponin 183->133 on admission - On admission, she stated she has some chest pain on and off - but unclear when. No recurrent complaints of chest pain. - Previously noted to have nonsustained VT on per device interrogation - Continue BB, ASA, BP control - Appreciate cardiology consultation: "No ischemic evaluation recommended at this time, especially given the fact that her mental status change and frequent falls are not likely related to her cardiac issues." Paroxysmal atrial fibrillation: With watchman's device- not on chronic anticoagulation - Continue with BB - currently sinus rhythm GERD (gastroesophageal reflux disease): - Continue Carafate - Continue PPI Depression/Dementia: - On 07/12, decreased Seroquel from 75 to 50mg PO HS due to potential polypharmacy/sedation etiology for falls - continue lamotrigine - Continue paroxetine - history of neurosyphilis - Per daughter, patient's mental status waxes and wanes, recently more . States patient got Covid in January and has been declining mentally since then - daughter has POA and prefers rehab facility over a [facility] for a few weeks while she prepares to move the patient into her home COPD (chronic obstructive pulmonary disease): - Continue SHERITA PRN - Continue BREO or equivalent - Continue Cetirizine - On room air, saturation at 98% CAD (coronary artery disease) and cardiomyopathy: - CAB with CABG (2005) to SVG-OM and SVG to RPDA - Continue ASA - Cardiac catheterization 12/2019: Ejection fraction 25-30%. Normal left main. 70% proximal OM1 with patent graft, 80% proximal RCA with patent graft, nonobstructive disease in left anterior descending - ECHO from 10/26 with EF 25-30% with mild to moderate MR - Echo from 07/10/21: EF 50-55% - Continue with BB and Lasix- consideration was in the past to addition of TOSHIA/ARB - this may have been limited secondary to hypotensive episodes in the past - With AICD AICD (automatic cardioverter/defibrillator) present: AICD- DDDR with ATR: interrogated on admission to [facility]- report on hard chart Cervical disc disease: - Posterior disc osteophyte complexes at C4-C5, C5-C6, and C6-C7. Moderate to advanced disc space narrowing at all cervical levels between C3-C4 and C6-C7 - No medical intervention needed - Continue PT/OT and pain control Code Status: DNR/DNI DVT prophylaxis: lovenox FEN/GI: heart healthy minced and moist + nutritional supplement drink Dispo: med/surg; awaiting placement (2) UTI (urinary tract infection): (3) Nonsustained ventricular tachycardia: (4) Paroxysmal atrial fibrillation: (5) GERD (gastroesophageal reflux disease): (6) Depression: (7) Dementia: (8) Chronic systolic CHF (congestive heart failure): (9) COPD (chronic obstructive pulmonary disease): (10) Cervical disc disease: (11) AICD (automatic cardioverter/defibrillator) present: Admission and Anticipated Discharge Date Admission Date: July 10, 2021 Supervising Physician Co-Signing Physician Notes I personally examined the patient and verified all rivero points of history and exam, discussed case, and agree with decision making with Beth Celeste MS4 alert and disoriented. Pleasant, happy, no complaints viatls noted awake pleasant nad. heent nc healing bruising L eye healing nicelyfar less noticeable today mmm breathing unlabored no accessory muscles good effort skin no rashes no pallor or icterus fall, AMS - polypharmacy (possible toxic encephalopathy due to polypharmacy), maybe dehydration; fortunately after discussion w cardiology rhythm issues do not appear to be culprit. PT/OT eval and treat, needs safe discharge planning - likely will need facility - referral process pending. slowly wean/taper/transition of home meds (but follow dysphoria -but this has not been persistently present, so I suspect its really more a function of the delirium) otherwise as above, pending placement Subjective No acute events overnight. Patient was not complaining of any pain this morning. She was perseverating on family members passing away and was confused but re- directable. She says she still has urinary incontinence but no dysuria. She remembered that she had a UTI and was being treated without prompting. She stated that she did not like the food and did not want to eat. She agreed to try a meal replacement drink. Spoke to daughter Kristine today ([phone]) to update her that the patient is medically stable and is waiting for placement at a rehab facility. Per case management, patient may have a bed early next week, possibly Sunday. The daughter would like to be updated daily by the medical team. Review of Systems Respiratory: no cough Cardiovascular: Additional Comments: no chest pain Gastrointestinal: no abdominal pain Genitourinary: no dysuria, +urinary incontinence Musculoskeletal: no neck or back pain today Physical Exam Constitutional: laying in bed comfortably, no acute distress Respiratory: normal respiratory effort, upper frontal lung miller clear, unable to assess posterior lung miller due to patient being unable to follow directions to sit up Cardiovascular: RRR no murmurs or gallops appreciated Gastrointestinal (Abdomen): soft, no guarding, no pain to palpation Musculoskeletal: no dystonia or muscle rigidity with passive movement of upper extremities Neurologic: oriented to person, not oriented to place or time. Results & Data Results & Data ([facility]) Vital Signs (Past 12 Hours) Vital Signs Temp Pulse Resp BP BP Pulse Ox 07/15/21 08:14 36.5 C 64 17 146/55 H 98 07/14/21 22:35 36.4 C L 72 20 135/78 93 (1) Dementia Dementia behavioral disturbance: with behavioral disturbance Dementia type: unspecified type Qualified Code(s): F03.91 - Unspecified dementia with behavioral disturbance (2) Fall Encounter type: initial encounter Qualified Code(s): W19.XXXA - Unspecified fall, initial encounter
[2021-07-15] MEDS: ENOXAPARIN INJ 40 MG/0.4 ML SYR SQ SCH (13:34)
[2021-07-15] MEDS: oxyCODONE/ACETAMINOPHEN 10-325 TAB PO PRN (13:44)
[2021-07-15] MEDS ORDERED: OLANZapine ZYDIS 5 MG ORALLY DIS. TAB PO ONE (18:02)
[2021-07-15] MEDS ORDERED: HALOPERIDOL LACTATE 5 MG/ML 1 ML VIAL IV STA (18:06)
[2021-07-15] MEDS ORDERED: HALOPERIDOL LACTATE 5 MG/ML 1 ML VIAL IM STA (18:15)
--- NOTE | 2021-07-15 18:16 | Billing Data ---
Date of Service July 15, 2021 Coding Level of Care Code 73904 Subseq Hosp Care Lvl 2
[2021-07-15] MEDS: cefTRIAXone SODIUM 1,000 MG in DEXTROSE 5% 50 ML IV SCH (18:40)
[2021-07-15] MEDS: POTASSIUM CHLORIDE CRTAB 20 MEQ TABCR PO SCH (18:40)
[2021-07-15] MEDS: LORazepam 0.5 MG TAB PO SCH (18:40)
[2021-07-15] MEDS: ATORVASTATIN 40 MG TAB PO SCH (18:40)
[2021-07-15] MEDS: QUEtiapine FUMARATE 25 MG TABLET PO SCH (21:36)
[2021-07-15] MEDS: DOCUSATE SODIUM/SENNA 50/8.6MG TAB PO SCH (21:38)
[2021-07-16] MEDS: DICLOFENAC SOD 1% GEL 100 GM TUBE EXT SCH ×3 (05:51→18:50)
--- NOTE | 2021-07-16 07:07 | Hospitalist Progress Note ---
Date of Service July 16, 2021 Assessment & Plan (1) Fall: Plan: 81 y/o female with PMHx of dementia, CHF, COPD, paroxysmal afib, watchman and AICD who presented after a fall and increased high sensitivity troponin and CK. ECG without acute changes. Fall: Recent fall with bruising to face - Etiology ddx polypharmacy, arrhythmia, fall due to tripping or deconditioning, dehydration, UTI -Avoid additional sedating PRN medications due to suspicion for polypharmacy - CT and plain film on admission without acute fractures or dislocations - PT/OT consult - Patient with fall in hospital on 07/12 when transferring to the bedside commode by herself - fell to her knees likely due to weakness/loss of balance; immediately evaluated by hospitalist team; patient with no arrhythmias on telemetry, did not hit head, no tenderness on knees or head on exam - reiterated importance of using call parry when she needs to use the bathroom and to not attempt to walk without assistance - bed alarm set, patient provided with diaper brief due to significant urinary urgency - orthostatic BPs normal -med rec done with [facility] - [place] in [place]: per pharmacy pt is prescribed Lamictal 100mg BID not QD, lorazepam 0.5 PRN not scheduled QD, and baclofen 20 BID not 10mg BID. Also on movantic 25mg QD and exelon patch 9.5mg BID outpatient. Other home meds correct in chart. UTI: - patient endorses dysuria, frequency, and urinary incontinence for a few days, improving - per daughter patient has had daily falls starting this weekend which is more than her baseline occasional falls, mainly when patient is trying to transfer herself to her bedside commode without help - UA indicative of UTI with +leuk est, WBC, bacteria without epithelial contamination. trace RBCs - Urine culture + pansensitive E. coli - Blood cultures pre-abx treatment with no growth to date. - Completed 5 day course of Ceftriaxone on 07/16/21 Non-sustained vtach: - ECG without acute changes, high sensitivity troponin 183->133 on admission - On admission, she stated she has some chest pain on and off - but unclear whe n. No recurrent complaints of chest pain. - Previously noted to have nonsustained VT on per device interrogation - Continue BB, ASA, BP control - Appreciate cardiology consultation: "No ischemic evaluation recommended at this time, especially given the fact that her mental status change and frequent falls are not likely related to her cardiac issues." Paroxysmal atrial fibrillation: With watchman's device- not on chronic anticoagulation - Continue with BB - currently sinus rhythm GERD (gastroesophageal reflux disease): - Continue Carafate - Continue PPI Depression/Dementia: - On 07/12, decreased Seroquel from 75 to 50mg PO HS due to potential polypharmacy/sedation etiology for falls - continue lamotrigine - Continue paroxetine - history of neurosyphilis - Per daughter, patient's mental status waxes and wanes, recently more . States patient got Covid in January and has been declining mentally since then - daughter has POA and prefers rehab facility over a custodial for a few weeks while she prepares to move the patient into her home COPD (chronic obstructive pulmonary disease): - Continue SHERITA PRN - Continue BREO or equivalent - Continue Cetirizine - On room air, saturation at 98% CAD (coronary artery disease) and cardiomyopathy: - CAB with CABG (2005) to SVG-OM and SVG to RPDA - Continue ASA - Cardiac catheterization 12/2019: Ejection fraction 25-30%. Normal left main. 70% proximal OM1 with patent graft, 80% proximal RCA with patent graft, nonobstructive disease in left anterior descending - ECHO from 10/26 with EF 25-30% with mild to moderate MR -Echo from 07/10/21: EF 50-55% - Continue with BB and Lasix- consideration was in the past to addition of TOSHIA/ARB - this may have been limited secondary to hypotensive episodes in the past - With AICD AICD (automatic cardioverter/defibrillator) present: AICD- DDDR with ATR: interrogated on admission to [facility]- report on hard chart Cervical disc disease: - Posterior disc osteophyte complexes at C4-C5, C5-C6, and C6-C7. Moderate to advanced disc space narrowing at all cervical levels between C3-C4 and C6-C7 - No medical intervention needed - Continue PT/OT and pain control Code Status: DNR/DNI DVT prophylaxis: lovenox FEN/GI: heart healthy minced and moist + nutritional supplement drink Dispo: med/surg; awaiting placement (2) UTI (urinary tract infection): (3) Nonsustained ventricular tachycardia: (4) Paroxysmal atrial fibrillation: (5) GERD (gastroesophageal reflux disease): (6) Depression: (7) Dementia: (8) Chronic systolic CHF (congestive heart failure): (9) COPD (chronic obstructive pulmonary disease): (10) Cervical disc disease: (11) AICD (automatic cardioverter/defibrillator) present: Admission and Anticipated Discharge Date Admission Date: July 10, 2021 Supervising Physician Co-Signing Physician Notes I personally examined the patient and verified all rivero points of history and exam, discussed case, and agree with decision making with Dr Sosa alert and disoriented. Pleasant, happy, no complaints viatls noted awake pleasant nad. heent nc healing bruising L eye healing nicelynow barely noticeable mmm breathing unlabored no accessory muscles good effort skin no rashes no pallor or icterus fall, AMS - polypharmacy (possible toxic encephalopathy due to polypharmacy), maybe dehydration; fortunately after discussion w cardiology rhythm issues do not appear to be culprit. PT/OT eval and treat, needs safe discharge planning - likely will need facility - referral process pending. slowly wean/taper/transition of home meds (but follow dysphoria -but this has not been persistently present, so I suspect its really more a function of the delirium)continue current dosing for now since she required 1 small dose of Haldol last night otherwise as above, pending placement Subjective Patient evaluated at the bedside this AM. Patient pleasant, though confused on her location. Believed that we were in [place] at this time. Was able to note that she was not in any pain or discomfort currently. Review of Systems Review of Systems: All systems reviewed & are unremarkable except as noted in Subjective Physical Exam Constitutional: no acute distress Eyes: normal visual miller by confrontation ENMT: external ear and nose normal, oropharynx normal Neck: trachea midline, no thyromegaly Respiratory: normal respiratory effort, lungs clear to auscultation Cardiovascular: Rate/Rhythm: regular rate and regular rhythm Heart Sounds: no murmur Extremities: no calf tenderness Gastrointestinal (Abdomen): normal bowel sounds, soft, nontender, no hepatosplenomegaly Results & Data Results & Data ([facility]) Vital Signs (Past 12 Hours) Vital Signs Pulse Resp BP Pulse Ox 07/16/21 04:23 94 07/16/21 03:32 73 18 153/88 H 90 Resident Activity Tracking Resident Involvement: Resident Care Provided Care Provided: Adult Hospital Medicine (1) Dementia Dementia behavioral disturbance: with behavioral disturbance Dementia type: unspecified type Qualified Code(s): F03.91 - Unspecified dementia with behavioral disturbance (2) Fall Encounter type: initial encounter Qualified Code(s): W19.XXXA - Unspecified fall, initial encounter
[2021-07-16 08:05] LABS: Basophils # (auto) 0.01 K/uL (0-0.2); Basophils % (auto) 0.2 %; Eosinophils # (auto) 0.09 K/uL (0-0.5); Eosinophils % (auto) 2.2 %; Hematocrit (blood only) 35.5 % (37-47); Hemoglobin 11.6 g/dL (12.0-16.0); Immature Granulocytes # (auto) 0.01 K/uL (0.00-0.02); Immature Granulocytes % (auto) 0.2 %; Lymphocytes # (auto) 1.46 K/uL (1.2-3.4); Lymphocytes % (auto) 35.4 %; Mean Corpuscular Hemoglobin 29.6 pg (25-34); Mean Corpuscular Hgb Conc 32.7 g/dL (32-36); Mean Corpuscular Volume 90.6 fL (80-100); Mean Platelet Volume 10.4 fL (7.4-10.4); Monocytes # (auto) 0.46 K/uL (0.11-0.59); Monocytes % (auto) 11.1 %; Neutrophils % (auto) 50.9 %; Platelet Count 199 K/uL (130-400); RDW Coefficient of Variation 17.5 % (11.5-14.5); RDW Standard Deviation 57.6 fL (36.4-46.3); Red Blood Count 3.92 M/uL (4.2-5.4); White Blood Count 4.13 K/uL (4.8-10.8)
[2021-07-16 08:23] LABS: BUN Creatinine Ratio 15.9 (10-20); Calcium 9.5 mg/dl (8.5-10.1); Creatinine Clr Calc Pharmacy 38.3 ml/min; Est GFR (African American) 70.4 ml/min; Est GFR (Non-African American) 60.8 ml/min; Potassium 3.6 mmol/L (3.5-5.1)
[2021-07-16] MEDS: CETIRIZINE HCL 10 MG TABLET PO SCH (09:15)
[2021-07-16] MEDS: lamoTRIgine 100 MG TAB PO SCH ×2 (09:15→20:33)
[2021-07-16] MEDS: MAGNESIUM OXIDE 400 MG TAB PO SCH (09:15)
[2021-07-16] MEDS: SUCRALFATE 1 GM TAB PO SCH ×3 (09:16→20:36)
[2021-07-16] MEDS: PANTOprazole 40 MG TAB PO SCH ×2 (09:16→20:34)
[2021-07-16] MEDS: FLUTICASONE/VILANTEROL 100/25MCG 14 PUFFS/INHALER INH SCH (09:16)
[2021-07-16] MEDS: ASPIRIN 81 MG ECTAB PO SCH (09:16)
[2021-07-16] MEDS: PARoxetine HCl CONTROLLED REL 12.5 MG TABCR PO SCH (09:16)
[2021-07-16] MEDS: METOPROLOL SUCC 25MG EXT REL TAB PO SCH (09:16)
[2021-07-16] MEDS: THIAMINE HCL 100 MG TAB PO SCH ×2 (09:16→20:35)
[2021-07-16] MEDS: FUROSEMIDE 40 MG TAB PO SCH (09:16)
[2021-07-16] MEDS: BACLOFEN 20 MG TAB PO SCH ×2 (09:17→20:32)
[2021-07-16] MEDS: POLYETHYLENE (MIRALAX) 17 GM PACK PO SCH (09:19)
[2021-07-16] MEDS: ENOXAPARIN INJ 40 MG/0.4 ML SYR SQ SCH (13:19)
[2021-07-16] MEDS: LORazepam 0.5 MG TAB PO SCH (14:57)
[2021-07-16] MEDS: ATORVASTATIN 40 MG TAB PO SCH (14:58)
[2021-07-16] MEDS: POTASSIUM CHLORIDE CRTAB 20 MEQ TABCR PO SCH (15:01)
--- NOTE | 2021-07-16 16:19 | Billing Data ---
Date of Service July 16, 2021 Coding Level of Care Code 30638 Subseq Hosp Care Lvl 2
[2021-07-16] MEDS ORDERED: OLANZapine ZYDIS 5 MG ORALLY DIS. TAB PO ONE (16:48)
[2021-07-16] MEDS: cefTRIAXone SODIUM 1,000 MG in DEXTROSE 5% 50 ML IV SCH (18:50)
[2021-07-16] MEDS: DOCUSATE SODIUM/SENNA 50/8.6MG TAB PO SCH (20:33)
[2021-07-16] MEDS: QUEtiapine FUMARATE 25 MG TABLET PO SCH (20:34)
[2021-07-17] MEDS: DICLOFENAC SOD 1% GEL 100 GM TUBE EXT SCH ×5 (00:21→23:27)
[2021-07-17 07:36] LABS: Basophils # (auto) 0.01 K/uL (0-0.2); Basophils % (auto) 0.2 %; Eosinophils # (auto) 0.11 K/uL (0-0.5); Eosinophils % (auto) 2.2 %; Hemoglobin 11.8 g/dL (12.0-16.0); Immature Granulocytes # (auto) 0.01 K/uL (0.00-0.02); Immature Granulocytes % (auto) 0.2 %; Lymphocytes # (auto) 1.63 K/uL (1.2-3.4); Lymphocytes % (auto) 32.4 %; Mean Corpuscular Hemoglobin 29.8 pg (25-34); Mean Corpuscular Hgb Conc 32.8 g/dL (32-36); Mean Corpuscular Volume 90.9 fL (80-100); Mean Platelet Volume 10.4 fL (7.4-10.4); Monocytes % (auto) 11.9 %; Neutrophils # (auto) 2.67 K/uL (1.4-6.5); Neutrophils % (auto) 53.1 %; Platelet Count 214 K/uL (130-400); RDW Coefficient of Variation 17.2 % (11.5-14.5); RDW Standard Deviation 56.7 fL (36.4-46.3); Red Blood Count 3.96 M/uL (4.2-5.4); White Blood Count 5.03 K/uL (4.8-10.8)
--- NOTE | 2021-07-17 07:36 | Hospitalist Progress Note ---
Date of Service July 17, 2021 Assessment & Plan (1) Fall: Plan: 81 y/o female with PMHx of dementia, CHF, COPD, paroxysmal afib, watchman and AICD who presented after a fall and increased high sensitivity troponin and CK. ECG without acute changes. Fall: Recent fall with bruising to face - Etiology ddx polypharmacy, arrhythmia, fall due to tripping or deconditioning, dehydration, UTI -Avoid additional sedating PRN medications due to suspicion for polypharmacy - CT and plain film on admission without acute fractures or dislocations - PT/OT consult - Patient with fall in hospital on 07/12 when transferring to the bedside commode by herself - fell to her knees likely due to weakness/loss of balance; immediately evaluated by hospitalist team; patient with no arrhythmias on telemetry, did not hit head, no tenderness on knees or head on exam - reiterated importance of using call parry when she needs to use the bathroom and to not attempt to walk without assistance - bed alarm set, patient provided with diaper brief due to significant urinary urgency - orthostatic BPs normal -[place] [facility] [place] [place]: per pharmacy pt is prescribed Lamictal 100mg BID not QD, lorazepam 0.5 PRN not scheduled QD, and baclofen 20 BID not 10mg BID. Also on movantic 25mg QD and exelon patch 9.5mg BID outpatient. Other home meds correct in chart. UTI: - patient endorses dysuria, frequency, and urinary incontinence for a few days, improving - per daughter patient has had daily falls starting this weekend which is more than her baseline occasional falls, mainly when patient is trying to transfer herself to her bedside commode without help - UA indicative of UTI with +leuk est, WBC, bacteria without epithelial contamination. trace RBCs - Urine culture + pansensitive E. coli - Blood cultures pre-abx treatment with no growth to date. - Completed 5 day course of Ceftriaxone on 07/16/21 Non-sustained vtach: - ECG without acute changes, high sensitivity troponin 183->133 on admission - On admission, she stated she has some chest pain on and off - but unclear whe n. No recurrent complaints of chest pain. - Previously noted to have nonsustained VT on per device interrogation - Continue BB, ASA, BP control - Appreciate cardiology consultation: "No ischemic evaluation recommended at this time, especially given the fact that her mental status change and frequent falls are not likely related to her cardiac issues." Paroxysmal atrial fibrillation: With watchman's device- not on chronic anticoagulation - Continue with BB - currently sinus rhythm GERD (gastroesophageal reflux disease): - Continue Carafate - Continue PPI Depression/Dementia: - On 07/12, decreased Seroquel from 75 to 50mg PO HS due to potential polypharmacy/sedation etiology for falls - continue lamotrigine - Continue paroxetine - history of neurosyphilis - Per daughter, patient's mental status waxes and wanes, recently more . States patient got Covid in January and has been declining mentally since then - daughter has POA and prefers rehab facility over a shelter for a few weeks while she prepares to move the patient into her home - With waxing and waning of symptoms, consider re-increase of Seroquel if dementia/delirium worsens while inpatient COPD (chronic obstructive pulmonary disease): - Continue SHERITA PRN - Continue BREO or equivalent - Continue Cetirizine - On room air, saturation at 98% CAD (coronary artery disease) and cardiomyopathy: - CAB with CABG (2005) to SVG-OM and SVG to RPDA - Continue ASA - Cardiac catheterization 12/2019: Ejection fraction 25-30%. Normal left main. 70% proximal OM1 with patent graft, 80% proximal RCA with patent graft, nonobstructive disease in left anterior descending - ECHO from 10/26 with EF 25-30% with mild to moderate MR -Echo from 07/10/21: EF 50-55% - Continue with BB and Lasix- consideration was in the past to addition of TOSHIA/ARB - this may have been limited secondary to hypotensive episodes in the past - With AICD AICD (automatic cardioverter/defibrillator) present: AICD- DDDR with ATR: interrogated on admission to [facility]- report on hard chart Cervical disc disease: - Posterior disc osteophyte complexes at C4-C5, C5-C6, and C6-C7. Moderate to advanced disc space narrowing at all cervical levels between C3-C4 and C6-C7 - No medical intervention needed - Continue PT/OT and pain control Code Status: DNR/DNI DVT prophylaxis: lovenox FEN/GI: heart healthy minced and moist + nutritional supplement drink Dispo: med/surg; awaiting placement (2) UTI (urinary tract infection): (3) Nonsustained ventricular tachycardia: (4) Paroxysmal atrial fibrillation: (5) GERD (gastroesophageal reflux disease): (6) Depression: (7) Dementia: (8) Chronic systolic CHF (congestive heart failure): (9) COPD (chronic obstructive pulmonary disease): (10) Cervical disc disease: (11) AICD (automatic cardioverter/defibrillator) present: Admission and Anticipated Discharge Date Admission Date: July 10, 2021 Supervising Physician Co-Signing Physician Notes I personally examined the patient and verified all rivero points of history and exam, discussed case, and agree with decision making with Dr Sosa alert and disoriented. Again today she is pleasant, happy, no complaints viatls noted awake pleasant nad. heent nc healing bruising L eye healing nicelynow barely noticeable mmm breathing unlabored no accessory muscles good effort skin no rashes no pallor or icterus fall, AMS - polypharmacy (possible toxic encephalopathy due to polypharmacy), maybe dehydration; fortunately after discussion w cardiology rhythm issues do not appear to be culprit. PT/OT eval and treat, needs safe discharge planning - likely will need facility - referral process pending. slowly wean/taper/transition of home meds (depending on dysphoria, and/or recurrence of agitation, probably have to keep Seroquel at current dosing, or possibly even bump back to 75but given that her mental status also easily could tie to hospital delirium in this regard, keep at the reduced 50 mg and follow for now) otherwise as above, pending placement Subjective Patient evaluated at the bedside. Fairly disoriented this morning and thinking that her daughter had fallen and had previously been hospitalized in the bed adjacent to hers. Difficult to reorient. Allowed for physical exam. No meaningful history obtainable this AM. Review of Systems Review of Systems: Unobtainable due to cognitive status Physical Exam Constitutional: + disheveled and + in distress Eyes: normal visual miller by confrontation ENMT: external ear and nose normal, oropharynx normal Neck: trachea midline, no thyromegaly Respiratory: normal respiratory effort, lungs clear to auscultation Cardiovascular: Rate/Rhythm: regular rate and regular rhythm Heart Sounds: no murmur Extremities: no calf tenderness Gastrointestinal (Abdomen): normal bowel sounds, soft, nontender, no hepatosplenomegaly Results & Data Results & Data ([facility]) Vital Signs (Past 12 Hours) Vital Signs Temp Pulse Resp BP Pulse Ox 07/17/21 00:45 36.6 C 64 14 102/60 94 Resident Activity Tracking Resident Involvement: Resident Care Provided Care Provided: Adult Hospital Medicine (1) Dementia Dementia behavioral disturbance: with behavioral disturbance Dementia type: unspecified type Qualified Code(s): F03.91 - Unspecified dementia with behavioral disturbance (2) Fall Encounter type: initial encounter Qualified Code(s): W19.XXXA - Unspecified fall, initial encounter
[2021-07-17 07:57] LABS: BUN Creatinine Ratio 25.3 (10-20); Calcium 8.9 mg/dl (8.5-10.1); Creatinine Clr Calc Pharmacy 40.6 ml/min; Est GFR (African American) 75.6 ml/min; Est GFR (Non-African American) 65.2 ml/min; Potassium 3.4 mmol/L (3.5-5.1)
[2021-07-17] MEDS ORDERED: POTASSIUM CHLORIDE CRTAB 20 MEQ TABCR PO STA (08:01)
[2021-07-17] MEDS: lamoTRIgine 100 MG TAB PO SCH ×2 (10:49→21:40)
[2021-07-17] MEDS: ASPIRIN 81 MG ECTAB PO SCH (10:49)
[2021-07-17] MEDS: METOPROLOL SUCC 25MG EXT REL TAB PO SCH (10:49)
[2021-07-17] MEDS: CETIRIZINE HCL 10 MG TABLET PO SCH (10:50)
[2021-07-17] MEDS: MAGNESIUM OXIDE 400 MG TAB PO SCH (10:50)
[2021-07-17] MEDS: FUROSEMIDE 40 MG TAB PO SCH (10:50)
[2021-07-17] MEDS: SUCRALFATE 1 GM TAB PO SCH ×3 (10:50→21:41)
[2021-07-17] MEDS: PANTOprazole 40 MG TAB PO SCH ×2 (10:50→21:40)
[2021-07-17] MEDS: THIAMINE HCL 100 MG TAB PO SCH ×2 (10:50→21:41)
[2021-07-17] MEDS: POLYETHYLENE (MIRALAX) 17 GM PACK PO SCH (10:50)
[2021-07-17] MEDS: BACLOFEN 20 MG TAB PO SCH ×2 (10:50→21:38)
[2021-07-17] MEDS: PARoxetine HCl CONTROLLED REL 12.5 MG TABCR PO SCH (10:51)
[2021-07-17] MEDS: FLUTICASONE/VILANTEROL 100/25MCG 14 PUFFS/INHALER INH SCH (10:51)
[2021-07-17] MEDS: POTASSIUM CHLORIDE CRTAB 20 MEQ TABCR PO SCH (14:54)
[2021-07-17] MEDS: ENOXAPARIN INJ 40 MG/0.4 ML SYR SQ SCH (14:54)
[2021-07-17] MEDS: LORazepam 0.5 MG TAB PO SCH (14:54)
[2021-07-17] MEDS: ATORVASTATIN 40 MG TAB PO SCH (14:55)
--- NOTE | 2021-07-17 15:30 | Billing Data ---
Date of Service July 17, 2021 Coding Level of Care Code 31566 Subseq Hosp Care Lvl 1
[2021-07-17] MEDS: DOCUSATE SODIUM/SENNA 50/8.6MG TAB PO SCH (21:39)
[2021-07-17] MEDS: QUEtiapine FUMARATE 25 MG TABLET PO SCH (21:42)
[2021-07-18] MEDS: DICLOFENAC SOD 1% GEL 100 GM TUBE EXT SCH ×3 (06:06→17:23)
--- NOTE | 2021-07-18 07:23 | Hospitalist Progress Note ---
Date of Service July 18, 2021 Assessment & Plan (1) Fall: Plan: 81 y/o female with PMHx of dementia, CHF, COPD, paroxysmal afib (s/p watchman and AICD) who presented after a mechanical fall and increased high sensitivity troponin and CK. ECG without acute changes. Mechanical Fall Recent fall with bruising to face. Multifactorial etiology: polypharmacy, deconditioning, dehydration, UTI. -Avoid additional sedating PRN medications due to suspicion for polypharmacy - CT and plain film on admission without acute fractures or dislocations - PT/OT consulted - recommends rehab placement (pending) - med rec done with [facility] in [place]: per pharmacy pt is prescribed Lamictal 100mg BID not QD, lorazepam 0.5 PRN not scheduled QD, and baclofen 20 BID not 10mg BID. Also on movantic 25mg QD and exelon patch 9.5mg BID outpatient. Other home meds correct in chart. UTI, resolved Presented dysuria, frequency, and urinary incontinence. Urine cx + for huggins- sensitive E. coli. May have contributed to fall. - Symptoms resolved s/p CTX x5 days (completed on 07/16). - blood cx no growth Non-sustained Ventricular Tachycardia - ECG without acute changes, high sensitivity troponin 183->133 on admission - On admission, she stated she has some chest pain on and off - but unclear when. No recurrent complaints of chest pain. - Previously noted to have nonsustained VT on [id number] per device interrogation - Continue BB, ASA, BP control - Appreciate cardiology consultation: "No ischemic evaluation recommended at this time, especially given the fact that her mental status change and frequent falls are not likely related to her cardiac issues." Paroxysmal atrial fibrillation With watchman's device- not on chronic anticoagulation - Continue with BB - currently sinus rhythm GERD - Continue Carafate - Continue PPI Depression;Dementia - On 07/12, decreased Seroquel from 75 to 50mg PO HS due to potential polyph armacy/sedation etiology for falls - continue lamotrigine - Continue paroxetine - history of neurosyphilis - Per daughter, patient's mental status waxes and wanes, recently more . States patient got Covid in January and has been declining mentally since then - daughter has POA and prefers rehab facility over a senior care for a few weeks while she prepares to move the patient into her home - With waxing and waning of symptoms, consider re-increase of Seroquel if dementia/delirium worsens while inpatient COPD (chronic obstructive pulmonary disease) - Continue SHERITA PRN - Continue BREO or equivalent - Continue Cetirizine CAD (coronary artery disease) and cardiomyopathy CAD with CABG (2005) to SVG-OM and SVG to RPDA - Continue ASA - Cardiac catheterization 12/2019: Ejection fraction 25-30%. Normal left main. 70% proximal OM1 with patent graft, 80% proximal RCA with patent graft, nonobstructive disease in left anterior descending - ECHO from 10/26 with EF 25-30% with mild to moderate MR -Echo from 07/10/21: EF 50-55% - Continue with BB and Lasix- consideration was in the past to addition of TOSHIA/ARB - this may have been limited secondary to hypotensive episodes in the past - With AICD AICD (automatic cardioverter/defibrillator) present AICD- DDDR with ATR: interrogated on admission to [facility]- report on hard chart Cervical disc disease - Posterior disc osteophyte complexes at C4-C5, C5-C6, and C6-C7. Moderate to advanced disc space narrowing at all cervical levels between C3-C4 and C6-C7 - No medical intervention needed - Continue PT/OT and pain control Code Status: DNR/DNI DVT prophylaxis: Lovenox FEN/GI: heart healthy minced and moist + nutritional supplement drink Dispo: med/surg; awaiting rehab placement (2) UTI (urinary tract infection): (3) Nonsustained ventricular tachycardia: (4) Paroxysmal atrial fibrillation: (5) GERD (gastroesophageal reflux disease): (6) Depression: (7) Dementia: (8) Chronic systolic CHF (congestive heart failure): (9) COPD (chronic obstructive pulmonary disease): (10) Cervical disc disease: (11) AICD (automatic cardioverter/defibrillator) present: Admission and Anticipated Discharge Date Admission Date: July 10, 2021 Supervising Physician Co-Signing Physician Notes Attending attestation Pt seen and examined in concert with Dr. Pike. In agreement with the documented findings as noted in the resident documentation with any exceptions or additions as noted here. No acute complaints at present, pleasantly confused. On examination, S1/S2 nl RRR no MCG. CTAB. Abd NT/ND BS+ve Mechanical fall with contusions - PT/OT consult NSVT - continue ASA, BB Dementia in the setting of polypharmacy with h/o neurosyphilis - tolerating decreased seroquel at 50mg. Continue to monitor and increase if worsened confusion. Else see resident documentation as noted. Subjective No acute events overnight, no agitation. This morning patient is pleasant and oriented to self and year only (chronic baseline). Does not complain of pain. Remainder of history/ROS limited by mental status. Review of Systems Review of Systems: Unobtainable due to cognitive status Physical Exam Physical Exam: General: A&Ox2 (self and year only). NAD. Cooperative. HEENT: Atraumatic, normocephalic. Pulm: CTAB A&P. -wheezes, -rales, -rhonchi. Symmetrical chest rise. No increase work of breathing. No respiratory distress. Cardiac: RRR, -mrg. Radial pulses intact and symmetrical. No LE edema. Abdominal: soft, non-tender, non-distended, BS x 4 Skin: warm, dry, no rash Results & Data Results & Data ([facility]) Vital Signs (Past 12 Hours) Vital Signs Temp Pulse Resp BP Pulse Ox 07/17/21 23:52 36.5 C 74 18 117/75 95 07/17/21 19:46 36.5 C 75 18 119/72 92 Resident Activity Tracking Resident Involvement: Resident Care Provided Care Provided: Adult Hospital Medicine (1) Dementia Dementia behavioral disturbance: with behavioral disturbance Dementia type: unspecified type Qualified Code(s): F03.91 - Unspecified dementia with behavioral disturbance (2) Fall Encounter type: initial encounter Qualified Code(s): W19.XXXA - Unspecified fall, initial encounter
[2021-07-18] MEDS: ASPIRIN 81 MG ECTAB PO SCH (08:00)
[2021-07-18] MEDS: MAGNESIUM OXIDE 400 MG TAB PO SCH (08:00)
[2021-07-18] MEDS: PANTOprazole 40 MG TAB PO SCH ×2 (08:00→21:53)
[2021-07-18] MEDS: BACLOFEN 20 MG TAB PO SCH ×2 (08:00→21:52)
[2021-07-18] MEDS: lamoTRIgine 100 MG TAB PO SCH ×2 (08:00→21:52)
[2021-07-18] MEDS: FUROSEMIDE 40 MG TAB PO SCH (08:00)
[2021-07-18] MEDS: THIAMINE HCL 100 MG TAB PO SCH ×2 (08:00→21:54)
[2021-07-18] MEDS: CETIRIZINE HCL 10 MG TABLET PO SCH (08:01)
[2021-07-18] MEDS: FLUTICASONE/VILANTEROL 100/25MCG 14 PUFFS/INHALER INH SCH (08:01)
[2021-07-18] MEDS: SUCRALFATE 1 GM TAB PO SCH ×3 (08:01→21:53)
[2021-07-18] MEDS: METOPROLOL SUCC 25MG EXT REL TAB PO SCH (08:02)
[2021-07-18 09:15] LABS: Basophils # (auto) 0.01 K/uL (0-0.2); Basophils % (auto) 0.2 %; Eosinophils # (auto) 0.08 K/uL (0-0.5); Eosinophils % (auto) 1.3 %; Hematocrit (blood only) 40.4 % (37-47); Hemoglobin 13.2 g/dL (12.0-16.0); Immature Granulocytes # (auto) 0.01 K/uL (0.00-0.02); Immature Granulocytes % (auto) 0.2 %; Lymphocytes # (auto) 2.18 K/uL (1.2-3.4); Lymphocytes % (auto) 34.2 %; Mean Corpuscular Hemoglobin 29.5 pg (25-34); Mean Corpuscular Hgb Conc 32.7 g/dL (32-36); Mean Corpuscular Volume 90.4 fL (80-100); Mean Platelet Volume 10.1 fL (7.4-10.4); Monocytes # (auto) 0.58 K/uL (0.11-0.59); Monocytes % (auto) 9.1 %; Neutrophils # (auto) 3.52 K/uL (1.4-6.5); Platelet Count 241 K/uL (130-400); RDW Coefficient of Variation 17.2 % (11.5-14.5); RDW Standard Deviation 56.9 fL (36.4-46.3); Red Blood Count 4.47 M/uL (4.2-5.4); White Blood Count 6.38 K/uL (4.8-10.8)
[2021-07-18] MEDS: PARoxetine HCl CONTROLLED REL 12.5 MG TABCR PO SCH (09:37)
[2021-07-18 09:56] LABS: Calcium 9.8 mg/dl (8.5-10.1); Creatinine Clr Calc Pharmacy 40.1 ml/min; Est GFR (African American) 74.5 ml/min; Est GFR (Non-African American) 64.3 ml/min; Potassium 3.4 mmol/L (3.5-5.1)
[2021-07-18] MEDS: POLYETHYLENE (MIRALAX) 17 GM PACK PO SCH (09:58)
[2021-07-18] MEDS ORDERED: POTASSIUM CHLORIDE CRTAB 20 MEQ TABCR PO STA (10:14)
[2021-07-18] MEDS: ENOXAPARIN INJ 40 MG/0.4 ML SYR SQ SCH (12:33)
[2021-07-18] MEDS: ATORVASTATIN 40 MG TAB PO SCH (12:33)
[2021-07-18] MEDS: POTASSIUM CHLORIDE CRTAB 20 MEQ TABCR PO SCH (12:35)
[2021-07-18] MEDS: LORazepam 0.5 MG TAB PO SCH (15:36)
[2021-07-18] MEDS: DOCUSATE SODIUM/SENNA 50/8.6MG TAB PO SCH (21:52)
[2021-07-18] MEDS: QUEtiapine FUMARATE 25 MG TABLET PO SCH (21:53)
[2021-07-19] MEDS: DICLOFENAC SOD 1% GEL 100 GM TUBE EXT SCH ×4 (00:48→17:20)
--- NOTE | 2021-07-19 08:02 | Hospitalist Progress Note ---
Date of Service July 19, 2021 Assessment & Plan (1) Fall: Plan: 81 y/o female with PMHx of dementia, CHF, COPD, paroxysmal afib (s/p watchman and AICD) who presented after a mechanical fall and increased high sensitivity troponin and CK. ECG without acute changes. Mechanical Fall Recent fall with bruising to face. Multifactorial etiology: polypharmacy, deconditioning, dehydration, UTI. -Avoid additional sedating PRN medications due to suspicion for polypharmacy - CT and plain film on admission without acute fractures or dislocations - PT/OT consulted - recommends rehab placement (pending) - med rec done with [facility] [place]: per pharmacy pt is prescribed Lamictal 100mg BID not QD, lorazepam 0.5 PRN not scheduled QD, and baclofen 20 BID not 10mg BID. Also on movantic 25mg QD and exelon patch 9.5mg BID outpatient. Other home meds correct in chart. UTI, resolved Presented dysuria, frequency, and urinary incontinence. Urine cx + for huggins- sensitive E. coli. May have contributed to fall. - Symptoms resolved s/p CTX x5 days (completed on 07/16). - blood cx no growth Non-sustained Ventricular Tachycardia - ECG without acute changes, high sensitivity troponin 183->133 on admission - On admission, she stated she has some chest pain on and off - but unclear when. No recurrent complaints of chest pain. - Previously noted to have nonsustained VT on [id number] per device interrogation - Continue BB, ASA, BP control - Appreciate cardiology consultation: "No ischemic evaluation recommended at this time, especially given the fact that her mental status change and frequent falls are not likely related to her cardiac issues." Paroxysmal atrial fibrillation With watchman's device- not on chronic anticoagulation - Continue with BB - currently sinus rhythm GERD - Continue Carafate - Continue PPI Depression;Dementia - On 07/12, decreased Seroquel from 75 to 50mg PO HS due to potential polyph armacy/sedation etiology for falls - continue lamotrigine - Continue paroxetine - history of neurosyphilis - With waxing and waning of symptoms, consider re-increase of Seroquel if dementia/delirium worsens while inpatient COPD (chronic obstructive pulmonary disease) - Continue SHERITA PRN - Continue BREO or equivalent - Continue Cetirizine CAD (coronary artery disease) and cardiomyopathy CAD with CABG (2005) to SVG-OM and SVG to RPDA - Continue ASA - Cardiac catheterization 12/2019: Ejection fraction 25-30%. Normal left main. 70% proximal OM1 with patent graft, 80% proximal RCA with patent graft, nonobstructive disease in left anterior descending - ECHO from 10/26 with EF 25-30% with mild to moderate MR -Echo from 07/10/21: EF 50-55% - Continue with BB and Lasix- consideration was in the past to addition of TOSHIA/ARB - this may have been limited secondary to hypotensive episodes in the past - With AICD AICD (automatic cardioverter/defibrillator) present AICD- DDDR with ATR: interrogated on admission to [facility]- report on hard chart Cervical disc disease - Posterior disc osteophyte complexes at C4-C5, C5-C6, and C6-C7. Moderate to advanced disc space narrowing at all cervical levels between C3-C4 and C6-C7 - No medical intervention needed - Continue PT/OT and pain control Code Status: DNR/DNI DVT prophylaxis: Lovenox FEN/GI: heart healthy minced and moist + nutritional supplement drink Dispo: med/surg; awaiting rehab placement (2) UTI (urinary tract infection): (3) Nonsustained ventricular tachycardia: (4) Paroxysmal atrial fibrillation: (5) GERD (gastroesophageal reflux disease): (6) Depression: (7) Dementia: (8) Chronic systolic CHF (congestive heart failure): (9) COPD (chronic obstructive pulmonary disease): (10) Cervical disc disease: (11) AICD (automatic cardioverter/defibrillator) present: Admission and Anticipated Discharge Date Admission Date: July 10, 2021 Supervising Physician Co-Signing Physician Notes Attending attestation Pt seen and examined in concert with Dr. Pike. In agreement with the documented findings as noted in the resident documentation with any exceptions or additions as noted here. Patient reports mild neck pain which is positional and nonradiating, improves with stretching. Still pleasant, confused, tangential VS reviewed. On examination, S1/S2 nl RRR no MCG. CTAB. Abd NT/ND BS+ve Mechanical fall with contusions - PT/OT consult - pending placement NSVT - continue ASA, BB Dementia in the setting of polypharmacy with h/o neurosyphilis - continues to tolerate decreased 50 mg seroquel. Continue to monitor, consider return to 75mg if needed. Neck pain - likely MSK - APAP for pain control and monitor Else see resident documentation as noted. Subjective No acute events overnight, no agitation. This morning patient is pleasant and oriented to self and year only (chronic baseline). Does not complain of pain. Remainder of history/ROS limited by mental status. Review of Systems Review of Systems: Unobtainable due to cognitive status Physical Exam Physical Exam: General: A&Ox2 (self and year only). NAD. Cooperative. HEENT: Atraumatic, normocephalic. Pulm: CTAB A&P. -wheezes, -rales, -rhonchi. Symmetrical chest rise. No increase work of breathing. No respiratory distress. Cardiac: RRR, -mrg. Radial pulses intact and symmetrical. No LE edema. Abdominal: soft, non-tender, non-distended, BS x 4 Skin: warm, dry, no rash Results & Data Results & Data ([facility]) Vital Signs (Past 12 Hours) Vital Signs Temp Pulse Resp BP Pulse Ox 07/19/21 06:43 36.6 C 62 18 115/69 94 07/18/21 23:08 36.8 C 70 18 112/70 93 Resident Activity Tracking Resident Involvement: Resident Care Provided Care Provided: Adult Hospital Medicine (1) Dementia Dementia behavioral disturbance: with behavioral disturbance Dementia type: unspecified type Qualified Code(s): F03.91 - Unspecified dementia with behavioral disturbance (2) Fall Encounter type: initial encounter Qualified Code(s): W19.XXXA - Unspecified fall, initial encounter
[2021-07-19] MEDS: SUCRALFATE 1 GM TAB PO SCH ×3 (09:18→20:17)
[2021-07-19] MEDS: THIAMINE HCL 100 MG TAB PO SCH ×2 (09:18→20:16)
[2021-07-19] MEDS: METOPROLOL SUCC 25MG EXT REL TAB PO SCH (09:18)
[2021-07-19] MEDS: MAGNESIUM OXIDE 400 MG TAB PO SCH (09:18)
[2021-07-19] MEDS: CETIRIZINE HCL 10 MG TABLET PO SCH (09:19)
[2021-07-19] MEDS: BACLOFEN 20 MG TAB PO SCH ×2 (09:19→20:18)
[2021-07-19] MEDS: FUROSEMIDE 40 MG TAB PO SCH (09:19)
[2021-07-19] MEDS: PANTOprazole 40 MG TAB PO SCH ×2 (09:19→20:17)
[2021-07-19] MEDS: ASPIRIN 81 MG ECTAB PO SCH (09:19)
[2021-07-19] MEDS: lamoTRIgine 100 MG TAB PO SCH ×2 (09:19→20:18)
[2021-07-19] MEDS: FLUTICASONE/VILANTEROL 100/25MCG 14 PUFFS/INHALER INH SCH (09:20)
[2021-07-19] MEDS: POLYETHYLENE (MIRALAX) 17 GM PACK PO SCH (09:25)
[2021-07-19] MEDS: PARoxetine HCl CONTROLLED REL 12.5 MG TABCR PO SCH (11:17)
[2021-07-19] MEDS: ENOXAPARIN INJ 40 MG/0.4 ML SYR SQ SCH (14:37)
[2021-07-19] MEDS: ATORVASTATIN 40 MG TAB PO SCH (14:37)
[2021-07-19] MEDS: POTASSIUM CHLORIDE CRTAB 20 MEQ TABCR PO SCH (14:37)
[2021-07-19] MEDS: LORazepam 0.5 MG TAB PO SCH (14:37)
[2021-07-19] MEDS: QUEtiapine FUMARATE 25 MG TABLET PO SCH (20:17)
[2021-07-19] MEDS: DOCUSATE SODIUM/SENNA 50/8.6MG TAB PO SCH (20:18)
[2021-07-20] MEDS: DICLOFENAC SOD 1% GEL 100 GM TUBE EXT SCH ×2 (00:36→07:47)
--- NOTE | 2021-07-20 06:57 | Hospitalist Progress Note ---
Date of Service July 20, 2021 Assessment & Plan (1) Fall: Plan: 81 y/o female with PMHx of dementia, CHF, COPD, paroxysmal afib (s/p watchman and AICD) who presented after a mechanical fall and increased high sensitivity troponin and CK. ECG without acute changes. Mechanical Fall Recent fall with bruising to face. Multifactorial etiology: polypharmacy, deconditioning, dehydration, UTI. -Avoid additional sedating PRN medications due to suspicion for polypharmacy - CT and plain film on admission without acute fractures or dislocations - PT/OT consulted - recommends rehab placement (pending) - med rec done with [facility] in [place]: per pharmacy pt is prescribed Lamictal 100mg BID not QD, lorazepam 0.5 PRN not scheduled QD, and baclofen 20 BID not 10mg BID. Also on movantic 25mg QD and exelon patch 9.5mg BID outpatient. Other home meds correct in chart. UTI, resolved Presented dysuria, frequency, and urinary incontinence. Urine cx + for huggins- sensitive E. coli. May have contributed to fall. - Symptoms resolved s/p CTX x5 days (completed on 07/16). - blood cx no growth Non-sustained Ventricular Tachycardia - ECG without acute changes, high sensitivity troponin 183->133 on admission - On admission, she stated she has some chest pain on and off - but unclear when. No recurrent complaints of chest pain. - Previously noted to have nonsustained VT on [id number] per device interrogation - Continue BB, ASA, BP control - Appreciate cardiology consultation: "No ischemic evaluation recommended at this time, especially given the fact that her mental status change and frequent falls are not likely related to her cardiac issues." Paroxysmal atrial fibrillation With watchman's device- not on chronic anticoagulation - Continue with BB - currently sinus rhythm GERD - Continue Carafate - Continue PPI Depression;Dementia - On 07/12, decreased Seroquel from 75 to 50mg PO HS due to potential polyph armacy/sedation etiology for falls - continue lamotrigine - Continue paroxetine - history of neurosyphilis - With waxing and waning of symptoms, consider re-increase of Seroquel if dementia/delirium worsens while inpatient COPD (chronic obstructive pulmonary disease) - Continue SHERITA PRN - Continue BREO or equivalent - Continue Cetirizine CAD (coronary artery disease) and cardiomyopathy CAD with CABG (2005) to SVG-OM and SVG to RPDA - Continue ASA - Cardiac catheterization 12/2019: Ejection fraction 25-30%. Normal left main. 70% proximal OM1 with patent graft, 80% proximal RCA with patent graft, nonobstructive disease in left anterior descending - ECHO from 10/26 with EF 25-30% with mild to moderate MR -Echo from 07/10/21: EF 50-55% - Continue with BB and Lasix- consideration was in the past to addition of TOSHIA/ARB - this may have been limited secondary to hypotensive episodes in the past - With AICD AICD (automatic cardioverter/defibrillator) present AICD- DDDR with ATR: interrogated on admission to [facility]- report on hard chart Cervical disc disease - Posterior disc osteophyte complexes at C4-C5, C5-C6, and C6-C7. Moderate to advanced disc space narrowing at all cervical levels between C3-C4 and C6-C7 - No medical intervention needed - Continue PT/OT and pain control Code Status: DNR/DNI DVT prophylaxis: Lovenox FEN/GI: heart healthy minced and moist + nutritional supplement drink Dispo: med/surg; awaiting rehab placement (2) UTI (urinary tract infection): (3) Nonsustained ventricular tachycardia: (4) Paroxysmal atrial fibrillation: (5) GERD (gastroesophageal reflux disease): (6) Depression: (7) Dementia: (8) Chronic systolic CHF (congestive heart failure): (9) COPD (chronic obstructive pulmonary disease): (10) Cervical disc disease: (11) AICD (automatic cardioverter/defibrillator) present: Admission and Anticipated Discharge Date Admission Date: July 10, 2021 (1) Fall Encounter type: initial encounter Qualified Code(s): W19.XXXA - Unspecified fall, initial encounter (2) Dementia Dementia behavioral disturbance: with behavioral disturbance Dementia type: unspecified type Qualified Code(s): F03.91 - Unspecified dementia with behavioral disturbance
[2021-07-20] MEDS: FLUTICASONE/VILANTEROL 100/25MCG 14 PUFFS/INHALER INH SCH (07:49)
[2021-07-20] MEDS: BACLOFEN 20 MG TAB PO SCH (07:49)
[2021-07-20] MEDS: SUCRALFATE 1 GM TAB PO SCH (07:50)
[2021-07-20] MEDS: MAGNESIUM OXIDE 400 MG TAB PO SCH (07:50)
[2021-07-20] MEDS: PARoxetine HCl CONTROLLED REL 12.5 MG TABCR PO SCH (07:50)
[2021-07-20] MEDS: lamoTRIgine 100 MG TAB PO SCH (07:50)
[2021-07-20] MEDS: METOPROLOL SUCC 25MG EXT REL TAB PO SCH (07:50)
[2021-07-20] MEDS: FUROSEMIDE 40 MG TAB PO SCH (07:50)
[2021-07-20] MEDS: PANTOprazole 40 MG TAB PO SCH (07:50)
[2021-07-20] MEDS: ASPIRIN 81 MG ECTAB PO SCH (07:51)
[2021-07-20] MEDS: CETIRIZINE HCL 10 MG TABLET PO SCH (07:51)
[2021-07-20] MEDS: THIAMINE HCL 100 MG TAB PO SCH (07:51)
[2021-07-20] MEDS: POLYETHYLENE (MIRALAX) 17 GM PACK PO SCH (07:53)
--- NOTE | 2021-07-20 09:38 | Discharge Summary ---
Date of Service July 20, 2021 Admission HPI Per Admitting Provider 81 YOF with medical history of: PAF(watchman's procedure), AICD secondary to CM, MR, CAD with CABG, Frequent Falls, Dementia, COVID and influenza 01/25. Patient was brought to the EMD today secondary to what she reports was a fall out of bed last night. She presents with left eye bruising, and bruising to her extremities. She reports that she falls all the time at home, but she knows she has a problem with her heart and legs. She says that at times she has some chest pain, but is unsure of when and can't characterize this. In the EMD the patient had routine labs performed to include HScTNI, ECG, interrogation of her AICD, and CT scan of head, cervical, face, Pelvis X-ray, Chest X-ray. The patient cervical spine was cleared by EMD radiographically and clinically- C- collar was removed. She had no other fractures. She was noted to have increase in her HScTNI to 172.8, with ECG without acute ST elevations or depressions. Interrogation of her AICD has nonsustained VT on , with no discharge and Anti-tachycardic response on Apr 21. Patient will be admitted for evaluation of her cardiac markers and following her ECG. Will have PT/OT consult. Did discuss the patient status with the daughter- The patient has fallen multiple times over the past 3 days at home. She is interested if rehab may help her out. Will consult Case management COVID test on admission is: NEGATIVE Admission Exam Per Admitting Provider PHYSICAL EXAM: General: awake, alert, no apparent distress Head: Normocephalic, atraumatic ENT: PERRLA, EOMI, no pharyngeal exudate, mucous membranes dry Neuro: AAO x 2, Person place, speech clear strength intact bilaterally 5/5, sensation intact and equal all extremities and dermatomes, no pronator drift Chest: equal rise and fall of the chest, no accessory muscle use, no heaves or thrills, Clear to auscultation, on room air, Cardiac: irregular rate and rhythm, telemetry reviewed-V pace, skin warm dry, cap refill <3 seconds, peripheral pulses +2 no JVD, no murmur, no edema GI: NABS x 4 quadrants, soft, nontender to palpation, no rebound, guarding or tenderness : Spontaneously voiding, no pain, no CVA tenderness, Extremities: Normal inspection, no peripheral edema or erythema, calfs nontender to palpation Skin: bruise to left face, arm, lower leg Principal Diagnosis Mechanical Fall UTI Discharge Exam General: A&Ox2 (self and year only). NAD. Cooperative. HEENT: Atraumatic, normocephalic. Pulm: CTAB A&P. -wheezes, -rales, -rhonchi. Symmetrical chest rise. No increase work of breathing. No respiratory distress. Cardiac: RRR, -mrg. Radial pulses intact and symmetrical. No LE edema. Abdominal: soft, non-tender, non-distended, BS x 4 Skin: warm, dry, no rash Discharge Data Allergies Allergy/AdvReac Type Severity Reaction Status Date / Time No Known Allergies Allergy Verified 07/10/21 10:55 Consultations 07/10/21 11:11 ED Decision to Admit Stat 07/10/21 13:04 Consult Cardiology Routine Ordered Studies 07/10/21 09:15 CT cervical spine wo con Stat CT facial bones wo con Stat CT head/brain wo con Stat Hospital Course (1) Fall: 81 y/o female with PMHx of dementia, CHF, COPD, paroxysmal afib (s/p watchman and AICD) who presented after a mechanical fall and was found to have UTI - admitted from 07/10 to 07/20 and will be transferred to [facility] SN[facility]. Mechanical Fall Recent fall with bruising to face. Multifactorial etiology: polypharmacy, deconditioning, dehydration, UTI. -Avoid additional sedating PRN medications due to suspicion for polypharmacy - CT and plain film on admission without acute fractures or dislocations - PT/OT consulted - recommends rehab placement - will be transferred to SNF on 07/20 as stated above - med rec done with [facility] in [place]: per pharmacy pt is prescribed Lamictal 100mg BID not QD, lorazepam 0.5 PRN not scheduled QD, and baclofen 20 BID not 10mg BID. Also on movantic 25mg QD and exelon patch 9.5mg BID outpatient. Other home meds correct in chart. UTI, resolved Presented dysuria, frequency, and urinary incontinence. Urine cx + for huggins- sensitive E. coli. May have contributed to fall. - Symptoms resolved s/p CTX x5 days (completed on 07/16). - blood cx no growth Non-sustained Ventricular Tachycardia; Elevated Troponin ECG without acute changes, high sensitivity troponin 183->133 on admission. No chest pain while in the hospital. Suspect demand ischemia due to nonsustained ventricular tachycardia. - Previously noted to have nonsustained VT on [id number] per device interrogation - Continue BB, ASA, BP control - Appreciate cardiology consultation: "No ischemic evaluation recommended at this time, especially given the fact that her mental status change and frequent falls are not likely related to her cardiac issues." Paroxysmal atrial fibrillation With watchman's device- not on chronic anticoagulation - Continue with BB - currently sinus rhythm GERD - Continue Carafate - Continue PPI Depression; Dementia - On 07/12, decreased Seroquel from 75 to 50mg PO HS due to potential polypharmacy/sedation etiology for falls - continue lamotrigine - Continue paroxetine - history of neurosyphilis - With waxing and waning of symptoms, consider re-increase of Seroquel if dementia/delirium worsens while inpatient COPD (chronic obstructive pulmonary disease) - Continue SHERITA PRN - Continue BREO or equivalent - Continue Cetirizine CAD (coronary artery disease) and cardiomyopathy CAD with CABG (2005) to SVG-OM and SVG to RPDA - Continue ASA - Cardiac catheterization 12/2019: Ejection fraction 25-30%. Normal left main. 70% proximal OM1 with patent graft, 80% proximal RCA with patent graft, nonobstructive disease in left anterior descending - ECHO from 10/26 with EF 25-30% with mild to moderate MR -Echo from 07/10/21: EF 50-55% - Continue with BB and Lasix- consideration was in the past to addition of TOSHIA/ARB - this may have been limited secondary to hypotensive episodes in the past - With AICD AICD (automatic cardioverter/defibrillator) present AICD- DDDR with ATR: interrogated on admission to [facility]- report on hard chart Cervical disc disease - Posterior disc osteophyte complexes at C4-C5, C5-C6, and C6-C7. Moderate to advanced disc space narrowing at all cervical levels between C3-C4 and C6-C7 - No medical intervention needed - Continue PT/OT and pain control Code Status: DNR/DNI DVT prophylaxis: Lovenox FEN/GI: heart healthy minced and moist + nutritional supplement drink (2) UTI (urinary tract infection): (3) Nonsustained ventricular tachycardia: (4) Paroxysmal atrial fibrillation: (5) GERD (gastroesophageal reflux disease): (6) Depression: (7) Dementia: (8) Chronic systolic CHF (congestive heart failure): (9) COPD (chronic obstructive pulmonary disease): (10) Cervical disc disease: (11) AICD (automatic cardioverter/defibrillator) present: Total Time Total Time Spent Total Time Spent (In Minutes): 30 minutes Discharge Plan Discharge Items Patient Disposition: Transfer Inpatient Rehab Fac Reason For Visit: ELEVATED TROPONIN Discharge Diagnosis: Mechanical Fall UTI Activity: Per Instructions section Non-emergency contact: Primary Care Provider Call non-emergency contact if: you have any medication questions Follow-up/Referrals: Bony Guerrero M.D. [Primary Care Provider] - Diet: Heart Healthy Addtl Attending Provider Instructions: 81 y/o female with PMHx of dementia, CHF, COPD, paroxysmal afib (s/p watchman and AICD) who presented after a mechanical fall and was found to have UTI - admitted from 07/10 to 07/20 and will be transferred to [facility] SNF. Mechanical Fall Recent fall with bruising to face. Multifactorial etiology: polypharmacy, deconditioning, dehydration, UTI. -Avoid additional sedating PRN medications due to suspicion for polypharmacy - CT and plain film on admission without acute fractures or dislocations - PT/OT consulted - recommends rehab placement - will be transferred to SNF on 07/20 as stated above - med rec done with [facility] in [place]: per pharmacy pt is prescribed Lamictal 100mg BID not QD, lorazepam 0.5 PRN not scheduled QD, and baclofen 20 BID not 10mg BID. Also on movantic 25mg QD and exelon patch 9.5mg BID outpatient. Other home meds correct in chart. UTI, resolved Presented dysuria, frequency, and urinary incontinence. Urine cx + for huggins- sensitive E. coli. May have contributed to fall. - Symptoms resolved s/p CTX x5 days (completed on 07/16). - blood cx no growth Non-sustained Ventricular Tachycardia; Elevated Troponin ECG without acute changes, high sensitivity troponin 183->133 on admission. No chest pain while in the hospital. Suspect demand ischemia due to nonsustained ventricular tachycardia. - Previously noted to have nonsustained VT on [id number] per device interrogation - Continue BB, ASA, BP control - Appreciate cardiology consultation: "No ischemic evaluation recommended at this time, especially given the fact that her mental status change and frequent falls are not likely related to her cardiac issues." Paroxysmal atrial fibrillation With watchman's device- not on chronic anticoagulation - Continue with BB - currently sinus rhythm GERD - Continue Carafate - Continue PPI Depression; Dementia - On 07/12, decreased Seroquel from 75 to 50mg PO HS due to potential polypharmacy/sedation etiology for falls - continue lamotrigine - Continue paroxetine - history of neurosyphilis - With waxing and waning of symptoms, consider re-increase of Seroquel if dementia/delirium worsens while inpatient COPD (chronic obstructive pulmonary disease) - Continue SHERITA PRN - Continue BREO or equivalent - Continue Cetirizine CAD (coronary artery disease) and cardiomyopathy CAD with CABG (2005) to SVG-OM and SVG to RPDA - Continue ASA - Cardiac catheterization 12/2019: Ejection fraction 25-30%. Normal left main. 70% proximal OM1 with patent graft, 80% proximal RCA with patent graft, nonobstructive disease in left anterior descending - ECHO from 10/26 with EF 25-30% with mild to moderate MR -Echo from 07/10/21: EF 50-55% - Continue with BB and Lasix- consideration was in the past to addition of TOSHIA/ARB - this may have been limited secondary to hypotensive episodes in the past - With AICD AICD (automatic cardioverter/defibrillator) present AICD- DDDR with ATR: interrogated on admission to [facility]- report on hard chart Cervical disc disease - Posterior disc osteophyte complexes at C4-C5, C5-C6, and C6-C7. Moderate to advanced disc space narrowing at all cervical levels between C3-C4 and C6-C7 - No medical intervention needed - Continue PT/OT and pain control Code Status: DNR/DNI DVT prophylaxis: Lovenox FEN/GI: heart healthy minced and moist + nutritional supplement drink Pending Studies at Discharge: No Stand-Alone Forms: My [employer] Skilled Items Patient informed of condition?: Yes DNR: Yes Discharge Level of Care: Skilled Communicable Disease: No Discharge Prognosis: Stable Lines: None Urinary Catheter: No Medications and DC Order Prescriptions: Continued furosemide 40 mg tablet 40 mg PO QAM RF: 0 atorvastatin 40 mg tablet 40 mg PO DAILY@1500 RF: 0 cetirizine 10 mg tablet 10 mg PO QAM RF: 0 sennosides-docusate sodium [Stool Softener-Laxative] 8.6-50 mg tablet 1 tab PO HS RF: 0 potassium chloride 20 mEq tablet,ER particles/crystals 20 meq PO DAILY@1500 RF: 0 oxycodone-acetaminophen 10-325 mg tablet 1 tab PO QID PRN (Reason: Pain) RF: 0 biotin 10,000 mcg capsule 10,000 mcg PO DAILY RF: 0 lamotrigine 100 mg tablet 100 mg PO AMHS RF: 0 rivastigmine 9.5 mg/24 hr patch 24 hour 1 patch transdermal DAILY RF: 0 cyanocobalamin (vitamin B-12) [Vitamin B-12] 5,000 mcg tablet, sublingual 5,000 mcg PO QAM RF: 0 Movantik 25 mg tablet 25 mg PO QAM RF: 0 One-A-Day Proactive 65 Plus 200 mcg tablet 1 tab PO DAILY RF: 0 Daily Probiotic (10 Strains) 4 billion cell capsule 1 cap PO DAILY@1200 RF: 0 baclofen 10 mg tablet 10 mg PO BID RF: 0 fluticasone propionate 50 mcg/actuation spray,suspension 2 spray INTRANASAL DAILY PRN (Reason: Congestion) RF: 0 paroxetine HCl 37.5 mg tablet extended release 24 hr 37.5 mg PO DAILY RF: 0 fluticasone furoate-vilanterol [Breo Ellipta] 100-25 mcg/dose blister with device 1 inh INHALATION DAILY RF: 0 sucralfate 1 gram tablet 1 g PO TID RF: 0 thiamine HCl (vitamin B1) 100 mg tablet 100 mg PO BID Qty: 60 RF: 3 magnesium oxide 500 mg capsule 500 mg PO DAILY Qty: 30 RF: 0 pantoprazole 40 mg tablet,delayed release (DR/EC) 40 mg PO BID RF: 0 aspirin 81 mg tablet,delayed release (DR/EC) 81 mg PO QAM RF: 0 lorazepam 0.5 mg tablet 0.5 mg PO .DAILY AT 1500 RF: 0 metoprolol succinate 25 mg tablet extended release 24 hr 25 mg PO QAM RF: 0 Botox 200 unit recon soln 0 unit UD RF: 0 polyethylene glycol 3350 [Gavilax] 17 gram/dose powder 17 g PO DAILY RF: 0 Changed quetiapine 25 mg tablet 50 mg PO HS 30 Days Qty: 1 RF: 0 Discharge Orders: Discharge Order (Routine); Ordered 07/20/21 Ordered By: Gray Pike Admission Data Admit Date/Time: 07/10/21 11:12 Attending Provider: David Yeung Admit Provider: Sumi Jaffe Primary Care Provider: Bony Guerrero Other Providers: Sumi Jaffe ; Robbin Mcclelland Other Interventions: Discharge Summary Assessment (RN) Last Done: 07/20/21 09:44 Supervising Physician Co-Signing Physician Notes Attending attestation Pt seen and examined in concert with Dr. Pike. In agreement with the documented findings as noted in the resident documentation with any exceptions or additions as noted here. Resting comfortably in bed without complaint at present. Ongoing baseline confusion/tangentiality VS reviewed. On examination, S1/S2 nl RRR no MCG. CTAB. Abd NT/ND BS+ve Mechanical fall with contusions - PT/OT consult with impending SNF for continued management NSVT - continue ASA, BB Dementia in the setting of polypharmacy with h/o neurosyphilis - continues to tolerate decreased 50 mg seroquel. Continue to monitor, consider return to 75mg if needed. Neck pain - likely MSK - APAP for pain control and monitor Else see resident documentation as noted. Total attending physician time spent on this patient's care on the day of discharge: 35 minutes. Resident Activity Tracking Resident Involvement: Resident Care Provided Care Provided: Adult Hospital Medicine
[2021-07-20] MEDS ORDERED: LORazepam 0.5 MG TAB PO ONE (11:30)
[2021-07-20] MEDS ORDERED: COVID-19 VACC, TRIS(PFIZER)/PF 30 MCG/0.3 ML VIAL IM ONE (12:00)
== END 2021-07-20 12:37 | DRG 689 ==
LOC: ED 09:01 → 2W 11:12 → SUATTDRO 11:12 → 2W 12:39

== ENCOUNTER 2021-10-27 12:55 | Inpatient (IN) ==
--- NOTE | 2021-10-27 14:17 | Emergency Department Note ---
History of Present Illness General Chief complaint: Fall Stated complaint: FALL Time Seen by Provider: 10/27/21 13:43 Source: patient, family (Daughter who is at the bedside), RN notes reviewed and old records reviewed Mode of arrival: ambulatory Limitations: no limitations History of Present Illness Maximum Pain Intensity: 7 This patient 6-year-old female who has a history of multiple medical problems including cardiac disease frequent falls and dementia, comes in after falling. Her daughter says she was hospitalized in her approximately July and went to the prison she said that the patient begged them to take her home and she did 5 weeks ago she said they have been difficult time with her and cannot handle her. Apparently PT and OT stopped coming to the house because she would not be compliant. They had a rough day yesterday she fell again yesterday as well and has pain in her right wrist which is chronic in her neck which is also chronic which may have hit her head as well. She is on no blood thinners. She denies any fevers. No sick contacts no exposure to COVID no urinary symptoms no cough. Her daughter feels she needs to be placed. Home Medications Medication Instructions Recorded Confirmed Type Lactobac 51-Bifidobac 1 cap PO DAILY@1200 03/28/20 07/10/21 History 3-L.lactis-S.thermophilus 4 billion cell capsule (Daily Probiotic (10 Strains)) atorvastatin 40 mg tablet 40 mg PO DAILY@1500 03/28/20 07/10/21 History biotin 10,000 mcg capsule 10,000 mcg PO DAILY 03/28/20 07/10/21 History cetirizine 10 mg tablet 10 mg PO QAM 03/28/20 07/10/21 History cyanocobalamin (vitamin B-12) 5,000 mcg PO QAM 03/28/20 07/10/21 History 5,000 mcg sublingual tablet (Vitamin B-12) furosemide 40 mg tablet 40 mg PO QAM 03/28/20 07/10/21 History lamotrigine 100 mg tablet 100 mg PO AMHS 03/28/20 07/10/21 History multivitamin with calcium and 1 tab PO DAILY 03/28/20 07/10/21 History minerals-folic acid 200 mcg tablet (One-A-Day Proactive 65 Plus) naloxegol 25 mg tablet (Movantik) 25 mg PO QAM 03/28/20 07/10/21 History oxycodone-acetaminophen 10 mg-325 1 tab PO QID PRN Pain 03/28/20 07/10/21 History mg tablet potassium chloride 20 mEq 20 meq PO DAILY@1500 03/28/20 07/10/21 History tablet,extended release(part/cryst) rivastigmine 9.5 mg/24 hour 1 patch transdermal DAILY 03/28/20 07/10/21 History transdermal patch sennosides 8.6 mg-docusate sodium 1 tab PO HS 03/28/20 07/10/21 History 50 mg tablet (Stool Softener-Laxative) baclofen 10 mg tablet 10 mg PO BID 02/08/21 07/10/21 History fluticasone furoate 100 1 inh inhalation DAILY 02/08/21 07/10/21 History mcg-vilanterol 25 mcg/dose inhalation powder (Breo Ellipta) fluticasone propionate 50 2 spray intranasal DAILY PRN 02/08/21 07/10/21 History mcg/actuation nasal Congestion spray,suspension paroxetine HCl 37.5 mg 37.5 mg PO DAILY 02/08/21 07/10/21 History tablet,extended release 24 hr sucralfate 1 gram tablet 1 g PO TID 02/27/21 07/10/21 History magnesium oxide 500 mg capsule 500 mg PO DAILY #30 caps 03/04/21 07/10/21 Rx thiamine HCl (vitamin B1) 100 mg 100 mg PO BID #60 tabs 03/04/21 07/10/21 Rx tablet aspirin 81 mg tablet,delayed 81 mg PO QAM 05/28/21 07/10/21 History release lorazepam 0.5 mg tablet 0.5 mg PO .DAILY AT 1500 05/28/21 07/10/21 History metoprolol succinate 25 mg 25 mg PO QAM 05/28/21 07/10/21 History tablet,extended release 24 hr onabotulinumtoxinA 200 unit 0 unit UD 05/28/21 07/10/21 History solution for injection (Botox) pantoprazole 40 mg tablet,delayed 40 mg PO BID 05/28/21 07/10/21 History release polyethylene glycol 3350 17 17 g PO DAILY 05/28/21 07/10/21 History gram/dose oral powder (Gavilax) quetiapine 25 mg tablet 50 mg PO HS 30 days #1 tab 07/20/21 07/10/21 Rx Allergies Allergy/AdvReac Type Severity Reaction Status Date / Time No Known Allergies Allergy Verified 07/10/21 10:55 Past Med/Surg History Medical History Arthritis CAD (coronary artery disease) Cardiomyopathy Chronic back pain Chronic systolic CHF (congestive heart failure) Dementia Depression Elevated troponin GERD (gastroesophageal reflux disease) Goiter, nodular Hypokalemia Influenza A Mitral regurgitation Myocardial infarction Nephrolithiasis Nonsustained ventricular tachycardia Paroxysmal atrial fibrillation Peripheral neuropathy Presence of Watchman left atrial appendage closure device Ulcerative colitis Surgical History AICD (automatic cardioverter/defibrillator) present Hx of cholecystectomy S/P CABG x 2 Social History Smoking Status: Current every day smoker Tobacco Type: Cigarettes Cigarettes Per Day: 1 pack per day; Second Hand Exposure: No; Hx Alcohol Use: No Hx Substance Use: No Preferred Language: Korean Communication Ability: Effective Civil Celebrant Required: No Beliefs That Will Affect Care: None marital status: Current Living Situation: Alone Current Living Situation Comment: Caregivers, see CM note in EHR current occupational status: retired How many Children do You have: 3 Feels Safe at Home: Yes Assistive Devices: Cane, Oxygen - Continuous, Walker and Wheelchair Review of Systems A total of 10 systems reviewed and were otherwise negative Physical Exam Vital Signs Vital Signs - 24 hr 10/27/21 13:02 10/27/21 14:55 Temperature 36.6 C Temperature Source Temporal Artery Scan Pulse Rate 103 H Pulse Rate [Finger] 91 H Pulse Rhythm Regular Pulse Strength Normal Respiratory Rate 18 20 Respiratory Effort / Characteristics Non-Labored Spontaneous Non-Labored Spontaneous Respiratory Depth Normal Normal Blood Pressure 127/67 Blood Pressure [Left Arm] 130/94 Blood Pressure Mean 87 Blood Pressure Mean [Left Arm] 106 Blood Pressure Position Sitting Blood Pressure Position [Left Arm] Lying Pulse Oximetry 92 99 Oxygen Delivery Method Room Air Nasal Cannula Oxygen Flow Rate 3 Sepsis Recent Fever Within 48 Hours No Sepsis New/Unexplained Change in Mental Status No Sepsis Action Taken by Nursing No Action Required General: Well developed well nourished older female who appears in no acute distress, breathing comfortably on room air. Normal speech HEENT: Normal cephalic atraumatic. Pupils are equal round and reactive to light. Extraocular movements are intact. Oropharynx is pink with moist mucous membranes. No swelling of the mouth lips or tongue. Neck: Supple with a midline trachea. No meningeal signs or stiffness, no JVD or bruits. No Stridor. Chest: Clear to auscultation bilaterally. No wheezes or rhonchi. No increased work of breathing. Heart: Regular rate and rhythm without murmurs or gallops. Abdomen: Soft nontender, nondistended without rebound guarding or rigidity. Extremities: No cyanosis clubbing or edema. No calf tenderness or assymetry Spine/Back. Non tender to palpation. No CVA tenderness Skin: Good turgor without rashes. Neurologic exam: Cranial nerves two through 12 are intact. Motor and sensation are intact and symmetrical throughout. Medical Decision Making Differential Diagnosis Fall, trauma, electrolyte or metabolic abnormality, dementia, COVID, UTI, cardiac disease Medical Records Attestation: I reviewed the patient's medical records. Home Medications Current Medication List: was personally reviewed by me Laboratory Data Attestation: I reviewed the patient's lab results. Result diagrams: 10/27/21 15:00 10/27/21 15:00 Lab Results 10/27/21 10/27/21 10/27/21 Range/Units 15:00 15:00 15:00 WBC 5.75 (4.8-10.8) K/ul RBC 4.30 (3.93-5.22) M/uL Hgb 12.3 (12.0-16.0) g/dl Hct 38.2 (34.1-44.9) % MCV 88.8 (80.0-100.0) fL MCH 28.6 (25.0-34.0) pg MCHC 32.2 (32.0-36.0) g/dL RDW Std Deviation 45.8 (36.4-46.3) fL RDW Coeff of Eric 14.2 (11.5-14.5) % Plt Count 311 (130-400) K/uL MPV 10.2 (9.4-12.3) fL Immature Gran % (Auto) 0.3 % Neut % (Auto) 69.6 % Lymph % (Auto) 15.5 % Hernando % (Auto) 11.5 % Eos % (Auto) 2.8 % Baso % (Auto) 0.3 % Neut # (Auto) 4.00 (1.4-6.5) K/uL Lymph # (Auto) 0.89 L (1.2-3.4) K/uL Hernando # (Auto) 0.66 (0.24-0.82) K/uL Eos # (Auto) 0.16 (0-0.50) K/uL Baso # (Auto) 0.02 (0-0.2) K/uL Immature Gran # (Auto) 0.02 (0.00-0.02) K/uL PT 11.6 (9.0-12.0) Seconds INR 1.1 (0.9-1.1) APTT 28.3 (21.0-31.0) Seconds PTT Ratio 1.0 Sodium 141 (136-145) mmol/L Potassium 3.0 L (3.5-5.1) mmol/L Chloride 97 L (98-107) mmol/L Carbon Dioxide 34 H (21-32) mmol/L Anion Gap 10 (3-11) BUN 12 (6-23) mg/dl Creatinine 0.61 (0.6-1.2) mg/dl Est Cr Clr Drug Dosing 55.3 ml/min Est GFR ( Amer) 97.2 ml/min Est GFR (Non-Af Amer) 83.8 ml/min BUN/Creatinine Ratio 19.7 (10-20) Glucose 98 (70-99(Fasting)) mg/dl Calcium 9.5 (8.5-10.1) mg/dl Total Bilirubin 0.4 (0.2-1.0) mg/dl AST 24 (13-39) U/L ALT 10 (7-52) U/L Alkaline Phosphatase 66 (34-104) U/L Troponin I High Sens 16.6 H D (0-14) pg/ml Total Protein 6.6 (6.0-8.3) gm/dl Albumin 3.5 (3.4-5.0) gm/dl Globulin 3.1 (2.5-4.0) gm/dl Albumin/Globulin Ratio 1.1 (0.9-2) Lipase 7 L (11-82) U/L SARS-CoV-2, RNA, NAAT (NEGATIVE) 10/27/21 Range/Units 15:00 WBC (4.8-10.8) K/ul RBC (3.93-5.22) M/uL Hgb (12.0-16.0) g/dl Hct (34.1-44.9) % MCV (80.0-100.0) fL MCH (25.0-34.0) pg MCHC (32.0-36.0) g/dL RDW Std Deviation (36.4-46.3) fL RDW Coeff of Eric (11.5-14.5) % Plt Count (130-400) K/uL MPV (9.4-12.3) fL Immature Gran % (Auto) % Neut % (Auto) % Lymph % (Auto) % Hernando % (Auto) % Eos % (Auto) % Baso % (Auto) % Neut # (Auto) (1.4-6.5) K/uL Lymph # (Auto) (1.2-3.4) K/uL Hernando # (Auto) (0.24-0.82) K/uL Eos # (Auto) (0-0.50) K/uL Baso # (Auto) (0-0.2) K/uL Immature Gran # (Auto) (0.00-0.02) K/uL PT (9.0-12.0) Seconds INR (0.9-1.1) APTT (21.0-31.0) Seconds PTT Ratio Sodium (136-145) mmol/L Potassium (3.5-5.1) mmol/L Chloride (98-107) mmol/L Carbon Dioxide (21-32) mmol/L Anion Gap (3-11) BUN (6-23) mg/dl Creatinine (0.6-1.2) mg/dl Est Cr Clr Drug Dosing ml/min Est GFR ( Amer) ml/min Est GFR (Non-Af Amer) ml/min BUN/Creatinine Ratio (10-20) Glucose (70-99(Fasting)) mg/dl Calcium (8.5-10.1) mg/dl Total Bilirubin (0.2-1.0) mg/dl AST (13-39) U/L ALT (7-52) U/L Alkaline Phosphatase (34-104) U/L Troponin I High Sens (0-14) pg/ml Total Protein (6.0-8.3) gm/dl Albumin (3.4-5.0) gm/dl Globulin (2.5-4.0) gm/dl Albumin/Globulin Ratio (0.9-2) Lipase (11-82) U/L SARS-CoV-2, RNA, NAAT NEGATIVE (NEGATIVE) Imaging Data Attestation: I personally reviewed and interpreted this imaging study as follows: My Impression: X-ray of right wristor acute fracture dislocation or abnormality seen. Head CT--no hemorrhage or mass-effect seen. Radiologist's Impression: Cervical Spine CT 10/27/21 13:[address] DOSE: HISTORY: Neck pain. fall TECHNIQUE: Multiaxial CT images of the cervical spine were performed and reformatted in the sagittal and coronal plane without the use of contrast. A dose lowering technique was utilized adhering to the principles of ALARA. COMPARISON: Cervical spine CT 07/10/2021. FINDINGS: No fractures. Prevertebral soft tissues and the C1-C2 interval are intact. No pneumothorax. Left-sided pacemaker wires are noted. Emphysema. Interstitial thickening within the right lung apex. Moderate to severe disc space narrowing from C3 through C7, unchanged. There is stable 2 mm of ante rolisthesis of C3 on C4 likely due to the long-standing degenerative change. IMPRESSION: No fractures within the cervical spine. ACT 112: Negative or not required by law. Electronically signed by: Fred Corbett M.D. 10/27/2021 3:[address] 10/27/21 13:57 CT SCAN OF THE CHEST WITHOUT IV CONTRAST; CT SCAN OF THE THORACIC SPINE WITHOUT IV CONTRAST CLINICAL HISTORY: Trauma. Fall. COMPARISON STUDY: Chest x-ray dated 10/27/2021. Chest CT dated 02/28/2021. TECHNIQUE: CT scan of the thorax was performed from the thoracic inlet to the upper abdomen. Additionally, CT scan of the thoracic spine is performed from the lower cervical spine to the upper lumbar spine. Images for both examinations are reviewed in the axial, sagittal, and coronal planes. IV contrast was not administered for this examination as per the referring clinician. A dose lowering technique was utilized adhering to the principles of ALARA. CT DOSE: 1666.95 mGy.cm FINDINGS: Thyroid: Normal in size and heterogeneous in attenuation. Thoracic aorta: There is atherosclerotic calcification of the thoracic aorta, which is normal in caliber and demonstrates standard 3-vessel arch anatomy. Heart: A cardiac pacemaker is present in the left chest wall. The patient is status post midline sternotomy appear The heart is enlarged and without pericardial effusion. There is diminished attenuation of the cardiac blood pool as compared to the myocardium suggesting anemia. The coronary arteries are densely calcified. A presumed occlusion device is noted in the left atrial appendage. Lungs and pleural spaces: Evaluation of the lung parenchyma is degraded by motion artifact. The trachea and central airways are clear. There is moderate emphysema. No airspace consolidation, pleural effusion, or pneumothorax is identified. Foci of probable scarring/atelectasis are seen throughout both lungs. There are scattered calcified granulomas. A 6 mm pulmonary nodule in the right lower lobe is seen on image #[id number]. Mediastinum: There is no mediastinal hematoma or lymphadenopathy. Tammie: Not well assessed without IV contrast. Axillae: There is no axillary lymphadenopathy. Upper abdomen: There is a calcified hepatic granuloma. Partially visualized upper abdominal viscera is otherwise grossly unremarkable. Skeletal structures: The skeletal structures are osteopenic. See below for dedicated discussion of the thoracic spine. No lytic or blastic bony lesions are seen. The bony thorax appears intact. There is a mild chronic superior endplate compression deformity of L1. THORACIC SPINE: There is a minimal chronic superior endplate compression de formity of T4. Vertebral body height and alignment are otherwise maintained throughout the thoracic spine. There is no evidence of fracture or malalignment. Anterior osteophytes are seen throughout. The transverse and spinous processes are intact. There is multilevel degenerative disc space narrowing with associated endplate sclerosis. This is greatest between T8-T9 and T11-T12. There is no CT evidence of large disc herniation or high-grade central canal stenosis The paraspinous soft tissues are normal in appearance. IMPRESSION: 1. There is no acute posttraumatic intrathoracic abnormality. 2. There is no airspace consolidation, pleural effusion, or pneumothorax. 3. There is no evidence of fracture or malalignment involving the thoracic spine. 4. Cardiomegaly and emphysema. 5. There is a 6 mm right lower lobe pulmonary nodule. This is is unchanged from previous and can be followed as per the Fleischner criteria. See below. 6. Additional findings as above. Please refer to below summary of Fleischner criteria recommendations for follow-up of incidental CT nodules (Lisseth Quiñones, Guidelines for management of small pulmonary nodules detected on CT scans: A statement from the Fleischner Society, Radiology 237: [phone].) SOLID NODULES Solitary nodule size: <6 mm * low risk patients: no follow-up needed * high risk patients: optional CT at 12 months Solitary nodule size: 6-8 mm * low risk patients: follow-up at 6-12 months, then consider further follow-up at 18-24 months * high risk patients: initial follow-up CT at 6-12 months and then at 18-24 months if no change Solitary nodule size: >8 mm * either low or high risk patients - consider follow-up CT at 3 months, and/or CT-PET, and/or biopsy Multiple nodules size: <6 mm * low risk patients: no routine follow-up * high risk patients: optional CT at 12 months Multiple nodules size: 6-8 mm * low risk patients: follow-up at 3-6 months, then consider further follow-up at 18-24 months * high risk patients: follow-up at 3-6 months, then at 18-24 months if no change Multiple nodules size: >8 mm * low risk patients: follow-up at 3-6 months, then consider further follow-up at 18-24 months * high risk patients: follow-up at 3-6 months, then at 18-24 months if no change Note: newly detected indeterminate nodule in persons 35 years of age or older. * low risk patients: minimal or absent history of smoking and/or other known risk factors * high risk patients: history of smoking or of other known risk factors (e.g. first degree relative with lung cancer, or exposure to asbestos, radon, uranium) * if a nodule up to 8 mm is partly solid or is ground glass further follow-up is required after 24 months to exclude possible slow growing adenocarcinoma (CAYLA) SUBSOLID NODULES Solitary pure ground-glass nodule * nodule size <6 mm - no CT follow-up required * nodule size >=6 mm - follow-up CT at 6-12 months, then every 2 years until 5 years Solitary part-solid nodule * nodule size <6 mm - no CT follow-up required * nodule size >=6 mm - follow-up CT at 3-6 months. If unchanged, and solid component remains <6 mm, then annual follow-up for 5 years Multiple subsolid nodules * nodule size <6 mm - follow-up CT at 3-6 months, consider further follow-up at 2 and 4 years if stable * nodule size >=6 mm - follow-up CT at 3-6 months, subsequent management based on the most suspicious nodule(s) ACT 112: Negative or not required by law. Electronically signed by: Doe Thibodeaux M.D. 10/27/2021 3:29 PM Chest X-Ray 10/27/21 13:57 XR chest 1V portable HISTORY: 81 years-old Female Chest Pain . Acute atypical chest pain COMPARISON: Chest radiograph 07/10/2021 TECHNIQUE: Portable AP view of the chest FINDINGS: Cardiac silhouette is enlarged. Prior median sternotomy. Left subclavian pacer/AICD. An occlusion device projects over the left heart border. Athe rosclerosis of the thoracic aorta. No pneumothorax, pleural effusion, airspace consolidation or overt pulmonary edema. Chronic interstitial coarsening. Degenerative changes of the shoulders and spine. IMPRESSION: Cardiomegaly without acute process. ACT 112: Negative or not required by law. The above report was generated using voice recognition software. It may contain grammatical, syntax or spelling errors. Electronically signed by: Monster Viera M.D. 10/27/2021 2:[address] 10/27/21 13:57 CT head/brain wo con CLINICAL HISTORY: 81 years-old Female with fall. Acute head trauma status post fall TECHNIQUE: Multiple axial CT images of the head were obtained without contrast. A dose lowering technique was utilized adhering to the principles of ALARA. COMPARISON: Head CT 07/10/2021 FINDINGS: No acute intracranial hemorrhage, midline shift, intracranial mass, hydrocephalus, territorial ischemia or abnormal extra-axial collection. Age-related involutional changes with ex vacuo ventriculomegaly. Extensive white matter hypodensities suggest chronic microvascular ischemic disease. Cerebral vascular and senescent basal ganglia calcifications. The calvarium is intact. Prior bilateral lens repair. Paranasal sinuses, mastoid air cells, and middle ear cavities are clear. IMPRESSION: No acute intracranial abnormality or calvarial fracture. ACT 112: Negative or not required by law. The above report was generated using voice recognition software. It may contain grammatical, syntax or spelling errors. Electronically signed by: Monster Viera M.D. 10/27/2021 3:[address] 10/27/21 13:57 CT SCAN OF THE CHEST WITHOUT IV CONTRAST; CT SCAN OF THE THORACIC SPINE WITHOUT IV CONTRAST CLINICAL HISTORY: Trauma. Fall. COMPARISON STUDY: Chest x-ray dated 10/27/2021. Chest CT dated 02/28/2021. TECHNIQUE: CT scan of the thorax was performed from the thoracic inlet to the upper abdomen. Additionally, CT scan of the thoracic spine is performed from the lower cervical spine to the upper lumbar spine. Images for both examinations are reviewed in the axial, sagittal, and coronal planes. IV contrast was not administered for this examination as per the referring clinician. A dose lowering technique was utilized adhering to the principles of ALARA. CT DOSE: 1666.95 mGy.cm FINDINGS: Thyroid: Normal in size and heterogeneous in attenuation. Thoracic aorta: There is atherosclerotic calcification of the thoracic aorta, which is normal in caliber and demonstrates standard 3-vessel arch anatomy. Heart: A cardiac pacemaker is present in the left chest wall. The patient is status post midline sternotomy appear The heart is enlarged and without pericardial effusion. There is diminished attenuation of the cardiac blood pool as compared to the myocardium suggesting anemia. The coronary arteries are densely calcified. A presumed occlusion device is noted in the left atrial appendage. Lungs and pleural spaces: Evaluation of the lung parenchyma is degraded by motion artifact. The trachea and central airways are clear. There is moderate emphysema. No airspace consolidation, pleural effusion, or pneumothorax is identified. Foci of probable scarring/atelectasis are seen throughout both lungs. There are scattered calcified granulomas. A 6 mm pulmonary nodule in the right lower lobe is seen on image #198. Mediastinum: There is no mediastinal hematoma or lymphadenopathy. Tammie: Not well assessed without IV contrast. Axillae: There is no axillary lymphadenopathy. Upper abdomen: There is a calcified hepatic granuloma. Partially visualized upper abdominal viscera is otherwise grossly unremarkable. Skeletal structures: The skeletal structures are osteopenic. See below for dedicated discussion of the thoracic spine. No lytic or blastic bony lesions are seen. The bony thorax appears intact. There is a mild chronic superior endplate compression deformity of L1. THORACIC SPINE: There is a minimal chronic superior endplate compression deformity of T4. Vertebral body height and alignment are otherwise maintained throughout the thoracic spine. There is no evidence of fracture or malalignment. Anterior osteophytes are seen throughout. The transverse and spinous processes are intact. There is multilevel degenerative disc space narrowing with associated endplate sclerosis. This is greatest between T8-T9 and T11-T12. There is no CT evidence of large disc herniation or high-grade central canal stenosis The paraspinous soft tissues are normal in appearance. IMPRESSION: 1. There is no acute posttraumatic intrathoracic abnormality. 2. There is no airspace consolidation, pleural effusion, or pneumothorax. 3. There is no evidence of fracture or malalignment involving the thoracic spine. 4. Cardiomegaly and emphysema. 5. There is a 6 mm right lower lobe pulmonary nodule. This is is unchanged from previous and can be followed as per the Fleischner criteria. See below. 6. Additional findings as above. Please refer to below summary of Fleischner criteria recommendations for follow- up of incidental CT nodules (Lisseth Quiñones, Guidelines for management of small pulmonary nodules detected on CT scans: A statement from the Fleischner Society, Radiology 237: [phone].) SOLID NODULES Solitary nodule size: <6 mm * low risk patients: no follow-up needed * high risk patients: optional CT at 12 months Solitary nodule size: 6-8 mm * low risk patients: follow-up at 6-12 months, then consider further follow-up at 18-24 months * high risk patients: initial follow-up CT at 6-12 months and then at 18-24 months if no change Solitary nodule size: >8 mm * either low or high risk patients - consider follow-up CT at 3 months, and/or CT-PET, and/or biopsy Multiple nodules size: <6 mm * low risk patients: no routine follow-up * high risk patients: optional CT at 12 months Multiple nodules size: 6-8 mm * low risk patients: follow-up at 3-6 months, then consider further follow-up at 18-24 months * high risk patients: follow-up at 3-6 months, then at 18-24 months if no change Multiple nodules size: >8 mm * low risk patients: follow-up at 3-6 months, then consider further follow-up at 18-24 months * high risk patients: follow-up at 3-6 months, then at 18-24 months if no change Note: newly detected indeterminate nodule in persons 35 years of age or older. * low risk patients: minimal or absent history of smoking and/or other known risk factors * high risk patients: history of smoking or of other known risk factors (e.g. first degree relative with lung cancer, or exposure to asbestos, radon, uranium) * if a nodule up to 8 mm is partly solid or is ground glass further follow-up is required after 24 months to exclude possible slow growing adenocarcinoma (CAYLA) SUBSOLID NODULES Solitary pure ground-glass nodule * nodule size <6 mm - no CT follow-up required * nodule size >=6 mm - follow-up CT at 6-12 months, then every 2 years until 5 years Solitary part-solid nodule * nodule size <6 mm - no CT follow-up required * nodule size >=6 mm - follow-up CT at 3-6 months. If unchanged, and solid component remains <6 mm, then annual follow-up for 5 years Multiple subsolid nodules * nodule size <6 mm - follow-up CT at 3-6 months, consider further follow-up at 2 and 4 years if stable * nodule size >=6 mm - follow-up CT at 3-6 months, subsequent management based on the most suspicious nodule(s) ACT 112: Negative or not required by law. Electronically signed by: Doe Thibodeaux M.D. 10/27/2021 3:29 PM Wrist X-Ray 10/27/21 13:59 RIGHT WRIST 4 VIEWS CLINICAL HISTORY: Fall. Right wrist pain. FINDINGS: 4 views of the right wrist are obtained. No prior studies are avai lable for comparison at the time of dictation. The skeletal structures are osteopenic. No acute fracture is seen. There is chronic posttraumatic deformity of the distal radius with a buttress plate along the volar cortex. The orthopedic hardware appears intact. There is a chronic avulsion injury of the ulnar styloid. Degenerative narrowing is seen at the radiocarpal articulation. 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 Milder degenerative change is seen throughout the remainder of the wrist. There is chondrocalcinosis of the triangular fibrocartilage. Mild soft tissue swelling is suggested dorsally. IMPRESSION: 1. No acute fracture is identified. 2. Osteopenia with chronic posttraumatic, postoperative, and degenerative changes as above. Electronically signed by: Doe Thibodeaux M.D. 10/27/2021 2:44 PM ECG Data Attestation: I personally reviewed and interpreted this ECG as follows: Indication: + weakness Rate (beats per minute): 88 Rhythm: + normal sinus ECG Intervals/blocks: + Normal QRS, + Normal QT and + Normal PA ECG [place]: + Normal ECG ST segments: + Nonspecific ST abnormalities ECG Findings: + PVCs Comparison ECG Date: from (07/11/21) Change: no significant change MDM Narrative This patient comes in as described above. She was placed in room C1. She has frequent falls. Multiple blood testing was obtained. She was hydrated with IV normal saline. CAT scans and x-rays were obtained, she was reassessed frequently. EKG was obtained. There is no ischemic changes. She has no severe electrolyte or metabolic abnormalities. CAT scans not show any acute findings. There is no acute findings on her chest x-ray and her right wrist has no acute findings. Although work-up looks negative the family feels she is unsafe to go home. And she needs to be placed as well. They feel they cannot safely handle her at home. I did consult the hospitalist to see her in the ER for these measures Continuous cardiac monitoring: Given the patient's cardiac history and frequent fall she was placed on a continuous gas prover. She was noted upon my interpretation to be normal sinus rhythm at a rate of 75. Impression & Plan Weakness, Cardiomyopathy, AICD (automatic cardioverter/defibrillator) present, Dementia, Fall Discharge Plan Visit Data Chief Complaint: Fall Stated Complaint: FALL ED Provider: Noam Hastings Discharge Problem: Weakness, Cardiomyopathy, AICD (automatic cardioverter/defibrillator) present, Dementia, Fall Forms Stand Alone Forms: My [facility] Prescriptions Prescriptions: No Action furosemide 40 mg tablet 40 mg PO QAM atorvastatin 40 mg tablet 40 mg PO DAILY@1500 cetirizine 10 mg tablet 10 mg PO QAM sennosides-docusate sodium [Stool Softener-Laxative] 8.6-50 mg tablet 1 tab PO HS potassium chloride 20 mEq tablet,ER particles/crystals 20 meq PO DAILY@1500 oxycodone-acetaminophen 10-325 mg tablet 1 tab PO QID PRN (Reason: Pain) biotin 10,000 mcg capsule 10,000 mcg PO DAILY lamotrigine 100 mg tablet 100 mg PO AMHS rivastigmine 9.5 mg/24 hr patch 24 hour 1 patch transdermal DAILY cyanocobalamin (vitamin B-12) [Vitamin B-12] 5,000 mcg tablet, sublingual 5,000 mcg PO QAM Movantik 25 mg tablet 25 mg PO QAM One-A-Day Proactive 65 Plus 200 mcg tablet 1 tab PO DAILY Daily Probiotic (10 Strains) 4 billion cell capsule 1 cap PO DAILY@1200 baclofen 10 mg tablet 10 mg PO BID fluticasone propionate 50 mcg/actuation spray,suspension 2 spray INTRANASAL DAILY PRN (Reason: Congestion) paroxetine HCl 37.5 mg tablet extended release 24 hr 37.5 mg PO DAILY fluticasone furoate-vilanterol [Breo Ellipta] 100-25 mcg/dose blister with device 1 inh INHALATION DAILY sucralfate 1 gram tablet 1 g PO TID thiamine HCl (vitamin B1) 100 mg tablet 100 mg PO BID Qty: 60 3RF magnesium oxide 500 mg capsule 500 mg PO DAILY Qty: 30 0RF pantoprazole 40 mg tablet,delayed release (DR/EC) 40 mg PO BID aspirin 81 mg tablet,delayed release (DR/EC) 81 mg PO QAM lorazepam 0.5 mg tablet 0.5 mg PO .DAILY AT 1500 metoprolol succinate 25 mg tablet extended release 24 hr 25 mg PO QAM Botox 200 unit recon soln 0 unit UD polyethylene glycol 3350 [Gavilax] 17 gram/dose powder 17 g PO DAILY quetiapine 25 mg tablet 50 mg PO HS 30 Days Qty: 1 0RF Rx Instructions: 3 tablet dose Referrals Referrals: Bony Guerrero M.D. [Primary Care Provider] -
--- NOTE | 2021-10-27 14:43 | XRay Report ---
XR chest 1V portable HISTORY: 81 years-old Female Chest Pain . Acute atypical chest pain COMPARISON: Chest radiograph 07/10/2021 TECHNIQUE: Portable AP view of the chest FINDINGS: Cardiac silhouette is enlarged. Prior median sternotomy. Left subclavian pacer/AICD. An occlusion dev ice projects over the left heart border. Atherosclerosis of the thoracic aorta. No pneumothorax, pleu ral effusion, airspace consolidation or overt pulmonary edema. Chronic interstitial coarsening. Degen erative changes of the shoulders and spine. IMPRESSION: Cardiomegaly without acute process. ACT 112: Negative or not required by law. The above report was generated using voice recognition software. It may contain grammatical, syntax o r spelling errors. Electronically signed by: Monster Viera M.D. 10/27/2021 2:42 PM
--- NOTE | 2021-10-27 14:46 | XRay Report ---
RIGHT WRIST 4 VIEWS CLINICAL HISTORY: Fall. Right wrist pain. FINDINGS: 4 views of the right wrist are obtained. No prior studies are available for comparison at t he time of dictation. The skeletal structures are osteopenic. No acute fracture is seen. There is chr onic posttraumatic deformity of the distal radius with a buttress plate along the volar cortex. The o rthopedic hardware appears intact. There is a chronic avulsion injury of the ulnar styloid. Degenerat lachelle narrowing is seen at the radiocarpal articulation. 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 Milder degenerative change is seen throughout the remainder of the wrist. There is chondrocalcinosis of the triangular fibrocartilage. Mild soft tissue swelling is suggested dorsally. IMPRESSION: 1. No acute fracture is identified. 2. Osteopenia with chronic posttraumatic, postoperative, and degenerative changes as above. Electronically signed by: Doe Thibodeaux M.D. 10/27/2021 2:44 PM
--- NOTE | 2021-10-27 15:08 | CT Scan Report ---
CT head/brain wo con CLINICAL HISTORY: 81 years-old Female with fall. Acute head trauma status post fall TECHNIQUE: Multiple axial CT images of the head were obtained without contrast. A dose lowering tech nique was utilized adhering to the principles of ALARA. COMPARISON: Head CT 07/10/2021 FINDINGS: No acute intracranial hemorrhage, midline shift, intracranial mass, hydrocephalus, territorial ischem ia or abnormal extra-axial collection. Age-related involutional changes with ex vacuo ventriculomegal y. Extensive white matter hypodensities suggest chronic microvascular ischemic disease. Cerebral vasc ular and senescent basal ganglia calcifications. The calvarium is intact. Prior bilateral lens repair. Paranasal sinuses, mastoid air cells, and midd le ear cavities are clear. IMPRESSION: No acute intracranial abnormality or calvarial fracture. ACT 112: Negative or not required by law. The above report was generated using voice recognition software. It may contain grammatical, syntax o r spelling errors. Electronically signed by: Monster Viera M.D. 10/27/2021 3:07 PM
--- NOTE | 2021-10-27 15:21 | CT Scan Report ---
CERVICAL SPINE CT CT DOSE: HISTORY: Neck pain. fall TECHNIQUE: Multiaxial CT images of the cervical spine were performed and reformatted in the sagittal and coronal plane without the use of contrast. A dose lowering technique was utilized adhering to e principles of ALARA. COMPARISON: Cervical spine CT 07/10/2021. FINDINGS: No fractures. Prevertebral soft tissues and the C1-C2 interval are intact. No pneumothorax. Left-sided pacemaker wires are noted. Emphysema. Interstitial thickening within the right lung apex. Moderate to severe disc space narrowing from C3 through C7, unchanged. There is stable 2 mm of anter olisthesis of C3 on C4 likely due to the long-standing degenerative change. IMPRESSION: No fractures within the cervical spine. ACT 112: Negative or not required by law. Electronically signed by: Fred Corbett M.D. 10/27/2021 3:19 PM
--- NOTE | 2021-10-27 15:30 | CT Scan Report ---
CT SCAN OF THE CHEST WITHOUT IV CONTRAST; CT SCAN OF THE THORACIC SPINE WITHOUT IV CONTRAST CLINICAL HISTORY: Trauma. Fall. COMPARISON STUDY: Chest x-ray dated 10/27/2021. Chest CT dated 02/28/2021. TECHNIQUE: CT scan of the thorax was performed from the thoracic inlet to the upper abdomen. Additio hernan, CT scan of the thoracic spine is performed from the lower cervical spine to the upper lumbar s pine. Images for both examinations are reviewed in the axial, sagittal, and coronal planes. IV contra st was not administered for this examination as per the referring clinician. A dose lowering techniq ue was utilized adhering to the principles of ALARA. CT DOSE: 1666.95 mGy.cm FINDINGS: Thyroid: Normal in size and heterogeneous in attenuation. Thoracic aorta: There is atherosclerotic calcification of the thoracic aorta, which is normal in johnson flip and demonstrates standard 3-vessel arch anatomy. Heart: A cardiac pacemaker is present in the left chest wall. The patient is status post midline ster notomy appear The heart is enlarged and without pericardial effusion. There is diminished attenuation of the cardiac blood pool as compared to the myocardium suggesting anemia. The coronary arteries are densely calcified. A presumed occlusion device is noted in the left atrial appendage. Lungs and pleural spaces: Evaluation of the lung parenchyma is degraded by motion artifact. The trach ea and central airways are clear. There is moderate emphysema. No airspace consolidation, pleural eff usion, or pneumothorax is identified. Foci of probable scarring/atelectasis are seen throughout both lungs. There are scattered calcified granulomas. A 6 mm pulmonary nodule in the right lower lobe is s een on image #[id number]. Mediastinum: There is no mediastinal hematoma or lymphadenopathy. Tammie: Not well assessed without IV contrast. Axillae: There is no axillary lymphadenopathy. Upper abdomen: There is a calcified hepatic granuloma. Partially visualized upper abdominal viscera i s otherwise grossly unremarkable. Skeletal structures: The skeletal structures are osteopenic. See below for dedicated discussion of th e thoracic spine. No lytic or blastic bony lesions are seen. The bony thorax appears intact. There is a mild chronic superior endplate compression deformity of L1. THORACIC SPINE: There is a minimal chronic superior endplate compression deformity of T4. Vertebral b santo height and alignment are otherwise maintained throughout the thoracic spine. There is no evidence of fracture or malalignment. Anterior osteophytes are seen throughout. The transverse and spinous pr ocesses are intact. There is multilevel degenerative disc space narrowing with associated endplate sc lerosis. This is greatest between T8-T9 and T11-T12. There is no CT evidence of large disc herniation or high-grade central canal stenosis The paraspinous soft tissues are normal in appearance. IMPRESSION: 1. There is no acute posttraumatic intrathoracic abnormality. 2. There is no airspace consolidation, pleural effusion, or pneumothorax. 3. There is no evidence of fracture or malalignment involving the thoracic spine. 4. Cardiomegaly and emphysema. 5. There is a 6 mm right lower lobe pulmonary nodule. This is is unchanged from previous and can be f ollowed as per the Fleischner criteria. See below. 6. Additional findings as above. Please refer to below summary of Fleischner criteria recommendations for follow-up of incidental CT n odules (Lisseth Quiñones, Guidelines for management of small pulmonary nodules detected on CT scans: A sta tement from the Fleischner Society, Radiology 237: [phone].) SOLID NODULES Solitary nodule size: <6 mm * low risk patients: no follow-up needed * high risk patients: optional CT at 12 months Solitary nodule size: 6-8 mm * low risk patients: follow-up at 6-12 months, then consider further follow-up at 18-24 months * high risk patients: initial follow-up CT at 6-12 months and then at 18-24 months if no change Solitary nodule size: >8 mm * either low or high risk patients - consider follow-up CT at 3 months, and/or CT-PET, and/or biopsy Multiple nodules size: <6 mm * low risk patients: no routine follow-up * high risk patients: optional CT at 12 months Multiple nodules size: 6-8 mm * low risk patients: follow-up at 3-6 months, then consider further follow-up at 18-24 months * high risk patients: follow-up at 3-6 months, then at 18-24 months if no change Multiple nodules size: >8 mm * low risk patients: follow-up at 3-6 months, then consider further follow-up at 18-24 months * high risk patients: follow-up at 3-6 months, then at 18-24 months if no change Note: newly detected indeterminate nodule in persons 35 years of age or older. * low risk patients: minimal or absent history of smoking and/or other known risk factors * high risk patients: history of smoking or of other known risk factors (e.g. first degree relative with lung cancer, or exposure to asbestos, radon, uranium) * if a nodule up to 8 mm is partly solid or is ground glass further follow-up is required after 24 m onths to exclude possible slow growing adenocarcinoma (CAYLA) SUBSOLID NODULES Solitary pure ground-glass nodule * nodule size <6 mm - no CT follow-up required * nodule size >=6 mm - follow-up CT at 6-12 months, then every 2 years until 5 years Solitary part-solid nodule * nodule size <6 mm - no CT follow-up required * nodule size >=6 mm - follow-up CT at 3-6 months. If unchanged, and solid component remains <6 mm, then annual follow-up for 5 years Multiple subsolid nodules * nodule size <6 mm - follow-up CT at 3-6 months, consider further follow-up at 2 and 4 years if sta ble * nodule size >=6 mm - follow-up CT at 3-6 months, subsequent management based on the most suspiciou s nodule(s) ACT 112: Negative or not required by law. Electronically signed by: Doe Thibodeaux M.D. 10/27/2021 3:29 PM
[2021-10-27 15:47] LABS: Basophils # (auto) 0.02 K/uL (0-0.2); Basophils % (auto) 0.3 %; Eosinophils # (auto) 0.16 K/uL (0-0.50); Eosinophils % (auto) 2.8 %; Hematocrit (blood only) 38.2 % (34.1-44.9); Hemoglobin 12.3 g/dl (12.0-16.0); Immature Granulocytes # (auto) 0.02 K/uL (0.00-0.02); Immature Granulocytes % (auto) 0.3 %; Lymphocytes # (auto) 0.89 K/uL (1.2-3.4); Lymphocytes % (auto) 15.5 %; Mean Corpuscular Hemoglobin 28.6 pg (25.0-34.0); Mean Corpuscular Hgb Conc 32.2 g/dL (32.0-36.0); Mean Corpuscular Volume 88.8 fL (80.0-100.0); Mean Platelet Volume 10.2 fL (9.4-12.3); Monocytes # (auto) 0.66 K/uL (0.24-0.82); Monocytes % (auto) 11.5 %; Neutrophils % (auto) 69.6 %; Platelet Count 311 K/uL (130-400); RDW Coefficient of Variation 14.2 % (11.5-14.5); RDW Standard Deviation 45.8 fL (36.4-46.3); White Blood Count 5.75 K/ul (4.8-10.8)
[2021-10-27 16:04] LABS: INR 1.1 (0.9-1.1); Partial Thromboplastin Time 28.3 Seconds (21.0-31.0); Prothrombin Time 11.6 Seconds (9.0-12.0)
--- NOTE | 2021-10-27 16:13 | Electrocardiogram Report ---
Test Reason : Blood Pressure : / mmHG Vent. Rate : 088 BPM Atrial Rate : 088 BPM P-R Int : 158 ms QRS Dur : 102 ms QT Int : 420 ms P-R-T Axes : 060 059 -11 degrees QTc Int : 508 ms Sinus rhythm with Premature supraventricular complexes and with occasional Premature ventricular comp lexes Diffuse Minor Nonspecific ST and T wave abnormality Abnormal ECG When compared with ECG of 12-JUL-2021 06:59, Premature supraventricular complexes are now Present Confirmed by Bryce Flynn ([id number]) on 10/27/2021 4:13:12 PM Referred By: REFERRED SELF Confirmed By:Bryce Flynn
[2021-10-27 16:18] LABS: Troponin I High Sensitivity 16.6 pg/ml (0-14)
[2021-10-27 16:21] LABS: Albumin Globulin Ratio 1.1 (0.9-2); Albumin Level 3.5 gm/dl (3.4-5.0); BUN Creatinine Ratio 19.7 (10-20); Bilirubin,Total 0.4 mg/dl (0.2-1.0); Calcium 9.5 mg/dl (8.5-10.1); Creatinine Clr Calc Pharmacy 55.3 ml/min; Est GFR (African American) 97.2 ml/min; Est GFR (Non-African American) 83.8 ml/min; Globulin 3.1 gm/dl (2.5-4.0); Total Protein 6.6 gm/dl (6.0-8.3)
--- NOTE | 2021-10-27 18:00 | History & Physical Report ---
Date of Service October 27, 2021 Assessment & Plan (1) Fall: Plan: -admit to medicine -Patient is currently afebrile, hemodynamically stable, and stable on her baseline 3L NC -Multiple mechanical falls at home, trauma workup today is negative, family is requesting placement -Fall precautions ordered -PT/OT consults placed -Pain control with tylenol and lidocaine patch for now, will continue [employer] baclofen but reduce dose from 10 mg BID to 5 mg BID to reduce sedative effects (2) Hypokalemia: Plan: -Likely poor oral intake and continue lasix use -Currently at 3.0, will order PO now -No EKG changes noted -Will add on mag level now -Continue [employer] KCL while on lasix and consider increasing dose if needed (3) Elevated troponin: Plan: -Noted to be 16.6 on ED labs -No chest pain or ECG changes, likely due to demand -Will repeat another troponin to monitor for adequate plateau (4) Paroxysmal atrial fibrillation: Plan: -S/P watchman procedure so not on anticoagulation -Continue [employer] metoprolol (5) Nonsustained ventricular tachycardia: Plan: -See afib (6) CAD (coronary artery disease): Plan: -[employer] aspirin (7) GERD (gastroesophageal reflux disease): Plan: -[employer] protonix (8) Chronic systolic CHF (congestive heart failure): Plan: -[employer] lasix and KCL -Appears euvolemic on exam (9) Dementia: Plan: -[employer] Seroquel, lamictal, and ativan (10) Chronic respiratory failure with hypoxia and hypercapnia: Plan: -Baseline O2 is 3L NC, currently stable on 3L NC here -Continue [employer] breathing treatments with prn albuterol for wheezing (11) COPD (chronic obstructive pulmonary disease): Plan: -See chronic respiratory failure with hypoxia and hypercapnia Plan The patient was discussed with Dr. Metcalf at the time of admisison History of Present Illness Chief Complaint: fall Primary Care Provider: Bony Guerrero 81 YOF with medical history of: PAF(watchman's procedure), AICD secondary to CM, MR, CAD with CABG, COPD, GERD, Frequent Falls, Dementia, COVID and influenza 01/25 who presented to the [facility] ED on 10/27/21 with a chief complaint of fall. In the ED the patient was found to be afebrile, hemodynamically stable, and stable on 3L NC. Trauma scans including xray of the wrsit, thoracic spine CT, head CT, chest CT, and cervical spine CT were negative for acute trauma. Labs were remarkable for a potassium of 3.0, high sensitivity troponin of 16.6. At the time of the exam the patient was resting comfortably in bed in no acute distress. History is difficult to obtain as patient has a history of dementia. The patient knows who she is and where she is, she tells me she is here because she fell out of bed. She states that her neck and right wrist hurt but has no other complaints at this time. I called and spoke to her Daughter (Kristine [phone]) to get the rest of the history. She states that her mother was initially in a fpc a few months ago for recurrent falls but her daughter brought her back home when the patient was begging her. Initially the patient was doing well at her daughter's home with PT/OT but she has become progressively less compliant, aggressive, weak, and has had multiple falls over the past week. Her Daughter states that she cannot safely take care of her mother at this time and she will need to be placed again. She confirmed that the patient is normally on 3L NC at all times and is a DNR/DNI. Allergies Allergy/AdvReac Type Severity Reaction Status Date / Time No Known Allergies Allergy Verified 07/10/21 10:55 Home Medications Medication Instructions Recorded Confirmed Type Lactobac 51-Bifidobac 1 cap PO DAILY@1200 03/28/20 10/28/21 History 3-L.lactis-S.thermophilus 4 billion cell capsule (Daily Probiotic (10 Strains)) atorvastatin 40 mg tablet 40 mg PO DAILY@1500 03/28/20 10/28/21 History furosemide 40 mg tablet 40 mg PO QAM 03/28/20 10/28/21 History lamotrigine 100 mg tablet 100 mg PO AMHS 03/28/20 10/28/21 History multivitamin with calcium and 1 tab PO DAILY 03/28/20 10/28/21 History minerals-folic acid 200 mcg tablet (One-A-Day Proactive 65 Plus) naloxegol 25 mg tablet (Movantik) 25 mg PO QAM 03/28/20 10/28/21 History oxycodone-acetaminophen 10 mg-325 1 tab PO QID 03/28/20 10/28/21 History mg tablet potassium chloride 20 mEq 20 meq PO DAILY@1500 03/28/20 10/28/21 History tablet,extended release(part/cryst) sennosides 8.6 mg-docusate sodium 1 tab PO HS 03/28/20 10/28/21 History 50 mg tablet (Stool Softener-Laxative) fluticasone furoate 100 1 inh inhalation DAILY 02/08/21 10/30/21 History mcg-vilanterol 25 mcg/dose inhalation powder (Breo Ellipta) sucralfate 1 gram tablet 1 g PO TID 02/27/21 10/28/21 History aspirin 81 mg tablet,delayed 81 mg PO QAM 05/28/21 10/30/21 History release lorazepam 0.5 mg tablet 0.5 mg PO HS 05/28/21 10/29/21 History quetiapine 25 mg tablet 50 mg PO HS 30 days #1 tab 07/20/21 10/28/21 Rx omeprazole 20 mg capsule,delayed 20 mg PO BID 10/28/21 10/28/21 History release biotin 10,000 mcg capsule 10,000 mcg PO DAILY 10/29/21 10/29/21 History cyanocobalamin (vitamin B-12) 500 500 mcg PO DAILY 10/29/21 10/29/21 History mcg tablet metoprolol succinate 25 mg 25 mg PO QAM 10/29/21 10/29/21 History tablet,extended release 24 hr paroxetine HCl 37.5 mg 37.5 mg PO QAM 10/29/21 10/29/21 History tablet,extended release 24 hr Past Med/Surg History Medical History Anemia Arthritis CAD (coronary artery disease) Cardiomyopathy Chronic back pain Chronic systolic CHF (congestive heart failure) Dementia Depression Elevated troponin GERD (gastroesophageal reflux disease) Goiter, nodular Hypokalemia Influenza A Mitral regurgitation Myocardial infarction Nephrolithiasis Nonsustained ventricular tachycardia Paroxysmal atrial fibrillation Peripheral neuropathy Presence of Watchman left atrial appendage closure device Ulcerative colitis Surgical History AICD (automatic cardioverter/defibrillator) present Hx of cholecystectomy S/P CABG x 2 Social History Smoking Status: Current every day smoker Tobacco Type: Cigarettes Cigarettes Per Day: 1 pack per day; Second Hand Exposure: No; Do You Dip or Chew Tobacco: No; Hx Alcohol Use: No Hx Substance Use: No Preferred Language: Malian Communication Ability: Effective Porcelain Buildup Assistant Required: No Beliefs That Will Affect Care: None marital status: Current Living Situation: Family Current Living Situation Comment: Caregivers, see CM note in EHR current occupational status: retired How many Children do You have: 3 Feels Safe at Home: Yes Safety Concerns: Feels Safe At This Time Assistive Devices: Walker Review of Systems Review of Systems: Denies current fever, chills, headache, changes in vision, hearing, taste, and smell, chest pain, SOB, cough, abdominal pain, nausea, vomiting, diarrhea, hematemesis, melena, dysuria, hematuria, and recent falls. All systems have been reviewed and are otherwise negative. Physical Exam Physical Exam: Physical Exam: General: In no acute distress, stated age, chronically ill-appearing HEENT: Normocephalic, atraumatic, no scleral icterus, pupils around round, symmetrical, and reactive to light, moist mucus membranes, trachea midline, no thyromegaly Chest/Pulm: Currently on 3L NC, No respiratory distress, symmetrical chest expansion, expiratory wheezing noted throughout Cardiac: RRR, systolic murmur noted Abdomen: Negative for ascites and bruising, normoactive bowel sounds, soft, non-tender to palpation throughout Musculoskeletal: Patient is tender to palpation over the cervical spine but without acute trauma or crepitus, pain/tenderness to the right wrist but has full ROM of the upper and lower extremities, no other acute trauma noted Extremities: Radial, dorsalis pedis, and posterior tibial pulses are intact and symmetrical, no edema noted in the BL LE's Skin: Warm, dry, no rashes , lesions, or scars noted Neuro: Alert and oriented to person and place but not to month, year, or president, no focal defects, CN II-XII tested and intact Psych: No acute distress, calm and cooperative during the exam Results & Data Results & Data ([facility]) Vital Signs (Past 12 Hours) Vital Signs Temp Pulse Pulse Resp BP BP Pulse Ox 10/27/21 14:55 91 H 20 130/94 99 10/27/21 13:02 36.6 C 103 H 18 127/67 92 O2 Del Method O2 Flow Rate 10/27/21 14:55 Nasal Cannula 3 10/27/21 13:02 Room Air Laboratory Results Abnormal lab results 10/27/21 10/27/21 Range/Units 15:00 15:00 Lymph # (Auto) 0.89 L (1.2-3.4) K/uL Potassium 3.0 L (3.5-5.1) mmol/L Chloride 97 L (98-107) mmol/L Carbon Dioxide 34 H (21-32) mmol/L Troponin I High Sens 16.6 H D (0-14) pg/ml Lipase 7 L (11-82) U/L Diagnostic Findings Cervical Spine CT 10/27/21 13:[address] DOSE: HISTORY: Neck pain. fall TECHNIQUE: Multiaxial CT images of the cervical spine were performed and reformatted in the sagittal and coronal plane without the use of contrast. A dose lowering technique was utilized adhering to the principles of ALARA. COMPARISON: Cervical spine CT 07/10/2021. FINDINGS: No fractures. Prevertebral soft tissues and the C1-C2 interval are intact. No pneumothorax. Left-sided pacemaker wires are noted. Emphysema. Interstitial thickening within the right lung apex. Moderate to severe disc space narrowing from C3 through C7, unchanged. There is stable 2 mm of anterolisthesis of C3 on C4 likely due to the long-standing degenerative change. IMPRESSION: No fractures within the cervical spine. ACT 112: Negative or not required by law. Electronically signed by: Fred Corbett M.D. 10/27/2021 3:[address] 10/27/21 13:57 CT SCAN OF THE CHEST WITHOUT IV CONTRAST; CT SCAN OF THE THORACIC SPINE WITHOUT IV CONTRAST CLINICAL HISTORY: Trauma. Fall. COMPARISON STUDY: Chest x-ray dated 10/27/2021. Chest CT dated 02/28/2021. TECHNIQUE: CT scan of the thorax was performed from the thoracic inlet to the upper abdomen. Additionally, CT scan of the thoracic spine is performed from the lower cervical spine to the upper lumbar spine. Images for both examinations are reviewed in the axial, sagittal, and coronal planes. IV contrast was not administered for this examination as per the referring clinician. A dose lowering technique was utilized adhering to the principles of ALARA. CT DOSE: 1666.95 mGy.cm FINDINGS: Thyroid: Normal in size and heterogeneous in attenuation. Thoracic aorta: There is atherosclerotic calcification of the thoracic aorta, which is normal in caliber and demonstrates standard 3-vessel arch anatomy. Heart: A cardiac pacemaker is present in the left chest wall. The patient is status post midline sternotomy appear The heart is enlarged and without pericardial effusion. There is diminished attenuation of the cardiac blood pool as compared to the myocardium suggesting anemia. The coronary arteries are densely calcified. A presumed occlusion device is noted in the left atrial appendage. Lungs and pleural spaces: Evaluation of the lung parenchyma is degraded by motion artifact. The trachea and central airways are clear. There is moderate emphysema. No airspace consolidation, pleural effusion, or pneumothorax is identified. Foci of probable scarring/atelectasis are seen throughout both lungs. There are scattered calcified granulomas. A 6 mm pulmonary nodule in the right lower lobe is seen on image #[id number]. Mediastinum: There is no mediastinal hematoma or lymphadenopathy. Tammie: Not well assessed without IV contrast. Axillae: There is no axillary lymphadenopathy. Upper abdomen: There is a calcified hepatic granuloma. Partially visualized upper abdominal viscera is otherwise grossly unremarkable. Skeletal structures: The skeletal structures are osteopenic. See below for dedicated discussion of the thoracic spine. No lytic or blastic bony lesions are seen. The bony thorax appears intact. There is a mild chronic superior endplate compression deformity of L1. THORACIC SPINE: There is a minimal chronic superior endplate compression deformity of T4. Vertebral body height and alignment are otherwise maintained throughout the thoracic spine. There is no evidence of fracture or malalignment. Anterior osteophytes are seen throughout. The transverse and spinous processes are intact. There is multilevel degenerative disc space narrowing with associated endplate sclerosis. This is greatest between T8-T9 and T11-T12. There is no CT evidence of large disc herniation or high-grade central canal stenosis The paraspinous soft tissues are normal in appearance. IMPRESSION: 1. There is no acute posttraumatic intrathoracic abnormality. 2. There is no airspace consolidation, pleural effusion, or pneumothorax. 3. There is no evidence of fracture or malalignment involving the thoracic spine. 4. Cardiomegaly and emphysema. 5. There is a 6 mm right lower lobe pulmonary nodule. This is is unchanged from previous and can be followed as per the Fleischner criteria. See below. 6. Additional findings as above. Please refer to below summary of Fleischner criteria recommendations for follow- up of incidental CT nodules (Lisseth Quiñones, Guidelines for management of small pulmonary nodules detected on CT scans: A statement from the Fleischner Society, Radiology 237: [phone].) SOLID NODULES Solitary nodule size: <6 mm * low risk patients: no follow-up needed * high risk patients: optional CT at 12 months Solitary nodule size: 6-8 mm * low risk patients: follow-up at 6-12 months, then consider further follow-up at 18-24 months * high risk patients: initial follow-up CT at 6-12 months and then at 18-24 months if no change Solitary nodule size: >8 mm * either low or high risk patients - consider follow-up CT at 3 months, and/or CT-PET, and/or biopsy Multiple nodules size: <6 mm * low risk patients: no routine follow-up * high risk patients: optional CT at 12 months Multiple nodules size: 6-8 mm * low risk patients: follow-up at 3-6 months, then consider further follow-up at 18-24 months * high risk patients: follow-up at 3-6 months, then at 18-24 months if no change Multiple nodules size: >8 mm * low risk patients: follow-up at 3-6 months, then consider further follow-up at 18-24 months * high risk patients: follow-up at 3-6 months, then at 18-24 months if no change Note: newly detected indeterminate nodule in persons 35 years of age or older. * low risk patients: minimal or absent history of smoking and/or other known risk factors * high risk patients: history of smoking or of other known risk factors (e.g. first degree relative with lung cancer, or exposure to asbestos, radon, uranium) * if a nodule up to 8 mm is partly solid or is ground glass further follow-up is required after 24 months to exclude possible slow growing adenocarcinoma (CAYLA) SUBSOLID NODULES Solitary pure ground-glass nodule * nodule size <6 mm - no CT follow-up required * nodule size >=6 mm - follow-up CT at 6-12 months, then every 2 years until 5 years Solitary part-solid nodule * nodule size <6 mm - no CT follow-up required * nodule size >=6 mm - follow-up CT at 3-6 months. If unchanged, and solid component remains <6 mm, then annual follow-up for 5 years Multiple subsolid nodules * nodule size <6 mm - follow-up CT at 3-6 months, consider further follow-up at 2 and 4 years if stable * nodule size >=6 mm - follow-up CT at 3-6 months, subsequent management based on the most suspicious nodule(s) ACT 112: Negative or not required by law. Electronically signed by: Doe Thibodeaux M.D. 10/27/2021 3:29 PM Chest X-Ray 10/27/21 13:57 XR chest 1V portable HISTORY: 81 years-old Female Chest Pain . Acute atypical chest pain COMPARISON: Chest radiograph 07/10/2021 TECHNIQUE: Portable AP view of the chest FINDINGS: Cardiac silhouette is enlarged. Prior median sternotomy. Left subclavian pacer/AICD. An occlusion device projects over the left heart border. Atherosclerosis of the thoracic aorta. No pneumothorax, pleural effusion, airspace consolidation or overt pulmonary edema. Chronic interstitial coarsening. Degenerative changes of the shoulders and spine. IMPRESSION: Cardiomegaly without acute process. ACT 112: Negative or not required by law. The above report was generated using voice recognition software. It may contain grammatical, syntax or spelling errors. Electronically signed by: Monster Viera M.D. 10/27/2021 2:[address] 10/27/21 13:57 CT head/brain wo con CLINICAL HISTORY: 81 years-old Female with fall. Acute head trauma status post fall TECHNIQUE: Multiple axial CT images of the head were obtained without contrast. A dose lowering technique was utilized adhering to the principles of ALARA. COMPARISON: Head CT 07/10/2021 FINDINGS: No acute intracranial hemorrhage, midline shift, intracranial mass, hydrocephalus, territorial ischemia or abnormal extra-axial collection. Age- related involutional changes with ex vacuo ventriculomegaly. Extensive white ma tter hypodensities suggest chronic microvascular ischemic disease. Cerebral vascular and senescent basal ganglia calcifications. The calvarium is intact. Prior bilateral lens repair. Paranasal sinuses, mastoid air cells, and middle ear cavities are clear. IMPRESSION: No acute intracranial abnormality or calvarial fracture. ACT 112: Negative or not required by law. The above report was generated using voice recognition software. It may contain grammatical, syntax or spelling errors. Electronically signed by: Monster Viera M.D. 10/27/2021 3:[address] 10/27/21 13:57 CT SCAN OF THE CHEST WITHOUT IV CONTRAST; CT SCAN OF THE THORACIC SPINE WITHOUT IV CONTRAST CLINICAL HISTORY: Trauma. Fall. COMPARISON STUDY: Chest x-ray dated 10/27/2021. Chest CT dated 02/28/2021. TECHNIQUE: CT scan of the thorax was performed from the thoracic inlet to the upper abdomen. Additionally, CT scan of the thoracic spine is performed from the lower cervical spine to the upper lumbar spine. Images for both examinations are reviewed in the axial, sagittal, and coronal planes. IV contrast was not administered for this examination as per the referring clinician. A dose lowering technique was utilized adhering to the principles of ALARA. CT DOSE: 1666.95 mGy.cm FINDINGS: Thyroid: Normal in size and heterogeneous in attenuation. Thoracic aorta: There is atherosclerotic calcification of the thoracic aorta, which is normal in caliber and demonstrates standard 3-vessel arch anatomy. Heart: A cardiac pacemaker is present in the left chest wall. The patient is status post midline sternotomy appear The heart is enlarged and without pericardial effusion. There is diminished attenuation of the cardiac blood pool as compared to the myocardium suggesting anemia. The coronary arteries are densely calcified. A presumed occlusion device is noted in the left atrial appendage. Lungs and pleural spaces: Evaluation of the lung parenchyma is degraded by motion artifact. The trachea and central airways are clear. There is moderate emphysema. No airspace consolidation, pleural effusion, or pneumothorax is identified. Foci of probable scarring/atelectasis are seen throughout both lungs. There are scattered calcified granulomas. A 6 mm pulmonary nodule in the right lower lobe is seen on image #198. Mediastinum: There is no mediastinal hematoma or lymphadenopathy. Tammie: Not well assessed without IV contrast. Axillae: There is no axillary lymphadenopathy. Upper abdomen: There is a calcified hepatic granuloma. Partially visualized upper abdominal viscera is otherwise grossly unremarkable. Skeletal structures: The skeletal structures are osteopenic. See below for dedicated discussion of the thoracic spine. No lytic or blastic bony lesions are seen. The bony thorax appears intact. There is a mild chronic superior endplate compression deformity of L1. THORACIC SPINE: There is a minimal chronic superior endplate compression deformity of T4. Vertebral body height and alignment are otherwise maintained throughout the thoracic spine. There is no evidence of fracture or malalignment. Anterior osteophytes are seen throughout. The transverse and spinous processes are intact. There is multilevel degenerative disc space narrowing with associated endplate sclerosis. This is greatest between T8-T9 and T11-T12. There is no CT evidence of large disc herniation or high-grade central canal stenosis The paraspinous soft tissues are normal in appearance. IMPRESSION: 1. There is no acute posttraumatic intrathoracic abnormality. 2. There is no airspace consolidation, pleural effusion, or pneumothorax. 3. There is no evidence of fracture or malalignment involving the thoracic spine. 4. Cardiomegaly and emphysema. 5. There is a 6 mm right lower lobe pulmonary nodule. This is is unchanged from previous and can be followed as per the Fleischner criteria. See below. 6. Additional findings as above. Please refer to below summary of Fleischner criteria recommendations for follow- up of incidental CT nodules (Lisseth Quiñones, Guidelines for management of small pulmonary nodules detected on CT scans: A statement from the Fleischner Society, Radiology 237: [phone].) SOLID NODULES Solitary nodule size: <6 mm * low risk patients: no follow-up needed * high risk patients: optional CT at 12 months Solitary nodule size: 6-8 mm * low risk patients: follow-up at 6-12 months, then consider further follow-up at 18-24 months * high risk patients: initial follow-up CT at 6-12 months and then at 18-24 months if no change Solitary nodule size: >8 mm * either low or high risk patients - consider follow-up CT at 3 months, and/or CT-PET, and/or biopsy Multiple nodules size: <6 mm * low risk patients: no routine follow-up * high risk patients: optional CT at 12 months Multiple nodules size: 6-8 mm * low risk patients: follow-up at 3-6 months, then consider further follow-up at 18-24 months * high risk patients: follow-up at 3-6 months, then at 18-24 months if no change Multiple nodules size: >8 mm * low risk patients: follow-up at 3-6 months, then consider further follow-up at 18-24 months * high risk patients: follow-up at 3-6 months, then at 18-24 months if no change Note: newly detected indeterminate nodule in persons 35 years of age or older. * low risk patients: minimal or absent history of smoking and/or other known risk factors * high risk patients: history of smoking or of other known risk factors (e.g. first degree relative with lung cancer, or exposure to asbestos, radon, uranium) * if a nodule up to 8 mm is partly solid or is ground glass further follow-up is required after 24 months to exclude possible slow growing adenocarcinoma (CAYLA) SUBSOLID NODULES Solitary pure ground-glass nodule * nodule size <6 mm - no CT follow-up required * nodule size >=6 mm - follow-up CT at 6-12 months, then every 2 years until 5 years Solitary part-solid nodule * nodule size <6 mm - no CT follow-up required * nodule size >=6 mm - follow-up CT at 3-6 months. If unchanged, and solid component remains <6 mm, then annual follow-up for 5 years Multiple subsolid nodules * nodule size <6 mm - follow-up CT at 3-6 months, consider further follow-up at 2 and 4 years if stable * nodule size >=6 mm - follow-up CT at 3-6 months, subsequent management based on the most suspicious nodule(s) ACT 112: Negative or not required by law. Electronically signed by: Doe Thibodeaux M.D. 10/27/2021 3:29 PM Wrist X-Ray 10/27/21 13:59 RIGHT WRIST 4 VIEWS CLINICAL HISTORY: Fall. Right wrist pain. FINDINGS: 4 views of the right wrist are obtained. No prior studies are available for comparison at the time of dictation. The skeletal structures are osteopenic. No acute fracture is seen. There is chronic posttraumatic deformity of the distal radius with a buttress plate along the volar cortex. The orthopedic hardware appears intact. There is a chronic avulsion injury of the ulnar styloid. Degenerative narrowing is seen at the radiocarpal articulation. 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 Milder degenerative change is seen throughout the remainder of the wrist. There is chondrocalcinosis of the triangular fibrocartilage. Mild soft tissue swelling is suggested dorsally. IMPRESSION: 1. No acute fracture is identified. 2. Osteopenia with chronic posttraumatic, postoperative, and degenerative changes as above. Electronically signed by: Doe Thibodeaux M.D. 10/27/2021 2:44 PM ECG Additional Comments: Sinus rhythm with Premature supraventricular complexes and with occasional Premature ventricular complexes Diffuse Minor Nonspecific ST and T wave abnormality Abnormal ECG When compared with ECG of 12-JUL-2021 06:59, Premature supraventricular complexes are now Present Confirmed by Bryce Flynn ([id number]) on 10/27/2021 4:13:12 PM Code Status & VTE Plan Code Status DNR/DNI VTE Prophylaxis Plan VTE Prophylaxis will be ordered: Yes Supervising Physician Co-Signing Physician Notes Patient seen and examined at bedside. During face to face encounter obtained a history and physical examination. I reviewed above note and agree with it. Plan of care discussed with patient and APC Peno. Due to multiple falls, patient will require PT for likely placement. PG Care Time/CCT Total # of Minutes Spent Total Time Spent with Patient: Total time spent is greater than 50% in coordination of care (as documented) at patient's floor/unit and/or counseling patient: [place] [id number] Initial Inpt Care Lvl 2 Patient Type Established Medical Decision Making Moderate Complexity Diagnoses Fall W19.XXXA Encounter type: initial encounter Hypokalemia E87.6 Elevated troponin R77.8 Paroxysmal atrial fibrillation I48.0 Nonsustained ventricular tachycardia I47.2 CAD (coronary artery disease) I25.10 Associated angina: unspecified whether angina present Coronary Disease-Associated Artery/Lesion type: unspecified vessel or lesion type [place] vs. transplanted heart: unspecified whether [place] or transplanted heart GERD (gastroesophageal reflux disease) K21.9 Chronic systolic CHF (congestive heart failure) I50.22 Dementia F03.91 Dementia behavioral disturbance: with behavioral disturbance Dementia type: unspecified type Chronic respiratory failure with hypoxia and hypercapnia J96.11; J96.12 COPD (chronic obstructive pulmonary disease) J44.9 (1) CAD (coronary artery disease) Associated angina: unspecified whether angina present Coronary Disease- Associated Artery/Lesion type: unspecified vessel or lesion type [place] vs. transplanted heart: unspecified whether [place] or transplanted heart Qualified Code(s): I25.10 - Atherosclerotic heart disease of [place] coronary artery without angina pectoris (2) Dementia Dementia behavioral disturbance: with behavioral disturbance Dementia type: unspecified type Qualified Code(s): F03.91 - Unspecified dementia with behavioral disturbance (3) Fall Encounter type: initial encounter Qualified Code(s): W19.XXXA - Unspecified fall, initial encounter
[2021-10-27 19:45] LABS: Magnesium 1.7 mg/dl (1.7-2.4)
[2021-10-27] MEDS ORDERED: ALBUTEROL 0.5% NEB SOLN 2.5 MG/0.5 ML VIAL NEB PRN (20:48)
[2021-10-27] MEDS: POTASSIUM CHLORIDE CRTAB 20 MEQ TABCR PO SCH ×2 (21:55→21:56)
[2021-10-27] MEDS: PANTOprazole 40 MG TAB PO SCH (21:56)
[2021-10-27] MEDS: lamoTRIgine 100 MG TAB PO SCH (21:56)
[2021-10-27] MEDS: QUEtiapine FUMARATE 25 MG TABLET PO SCH (21:56)
[2021-10-27] MEDS: THIAMINE HCL 100 MG TAB PO SCH (21:56)
[2021-10-27] MEDS: BACLOFEN 10 MG TAB PO SCH (21:57)
[2021-10-27] MEDS: [UNRECOGNIZED DRUG - REMARK] SCH (21:58)
[2021-10-27] MEDS: LIDOCAINE 5% 1 PATCH TD SCH (21:58)
[2021-10-28] MEDS: [UNRECOGNIZED DRUG - REMARK] SCH ×3 (00:04→15:35)
[2021-10-28 00:05] LABS: Appearance Urine Cloudy (Clear); Bacteria Urine Automated 4+ (Negative); Blood Urine Negative (Negative); Color Urine Dark Yellow; Epithelial Cell Urine Auto >30 /lpf (0-5); Glucose Urine UA Negative (Negative); Ketones Urine 2+ (Negative); Leukocyte Esterase Urine 2+ (Negative); Nitrite Urine Positive (Negative); Protein Urine 1+ (Negative); Urobilinogen Urine Negative (Negative); WBC Urine Automated >30 /hpf (0-5); pH Urine 5.5 (4.5-7.5)
[2021-10-28 00:10] LABS: Bilirubin Urine 1+ (Negative)
[2021-10-28 00:35] LABS: RBC Urine Automated 0-4 /hpf (0-4)
[2021-10-28] MEDS: POTASSIUM CHLORIDE CRTAB 20 MEQ TABCR PO SCH ×2 (00:36→15:35)
[2021-10-28 06:28] LABS: Hematocrit (blood only) 33.3 % (34.1-44.9); Hemoglobin 11.1 g/dl (12.0-16.0); Mean Corpuscular Hemoglobin 28.9 pg (25.0-34.0); Mean Corpuscular Hgb Conc 33.3 g/dL (32.0-36.0); Mean Corpuscular Volume 86.7 fL (80.0-100.0); Platelet Count 282 K/uL (130-400); RDW Coefficient of Variation 14.2 % (11.5-14.5); RDW Standard Deviation 45.1 fL (36.4-46.3); Red Blood Count 3.84 M/uL (3.93-5.22); White Blood Count 6.04 K/ul (4.8-10.8)
[2021-10-28] MEDS: SUCRALFATE 1 GM TAB PO SCH ×3 (06:33→17:40)
[2021-10-28 06:57] LABS: BUN Creatinine Ratio 17.3 (10-20); Calcium 9.2 mg/dl (8.5-10.1); Est GFR (African American) 85.4 ml/min; Est GFR (Non-African American) 73.7 ml/min; Magnesium 1.7 mg/dl (1.7-2.4); Potassium 3.9 mmol/L (3.5-5.1)
[2021-10-28] MEDS ORDERED: PARoxetine HCl CONTROLLED REL 12.5 MG TABCR PO SCH (09:00)
[2021-10-28] MEDS ORDERED: METOPROLOL SUCC 25MG EXT REL TAB PO SCH (09:00)
[2021-10-28] MEDS ORDERED: POLYETHYLENE (MIRALAX) 17 GM PACK PO SCH (09:00)
[2021-10-28] MEDS ORDERED: MAGNESIUM OXIDE 400 MG TAB PO SCH (09:00)
[2021-10-28] MEDS: ASPIRIN 81 MG ECTAB PO SCH (09:58)
[2021-10-28] MEDS: BACLOFEN 10 MG TAB PO SCH (09:58)
[2021-10-28] MEDS: FLUTICASONE/VILANTEROL 100/25MCG 14 PUFFS/INHALER INH SCH (09:59)
[2021-10-28] MEDS: FUROSEMIDE 40 MG TAB PO SCH (09:59)
[2021-10-28] MEDS: lamoTRIgine 100 MG TAB PO SCH ×2 (10:00→20:37)
[2021-10-28] MEDS: PANTOprazole 40 MG TAB PO SCH ×2 (10:00→20:36)
[2021-10-28] MEDS: THIAMINE HCL 100 MG TAB PO SCH (10:02)
[2021-10-28] MEDS: cefTRIAXone SODIUM 1,000 MG in DEXTROSE 5% 50 ML IV SCH (11:11)
[2021-10-28] MEDS ORDERED: LORazepam 0.5 MG TAB PO SCH (15:00)
[2021-10-28] MEDS: ATORVASTATIN 40 MG TAB PO SCH (15:34)
--- NOTE | 2021-10-28 20:09 | Hospitalist Progress Note ---
Date of Service October 28, 2021 Assessment & Plan (1) Fall: Plan: -with h/o falls and weakness, needs placement Was previously in a NH but then was brought home after a few months at pt's request -Patient is currently afebrile, hemodynamically stable, and stable on her baseline 3L NC -Multiple mechanical falls at home, trauma workup here is negative, family is requesting placement -Fall precautions ordered -PT/OT consults placed -Pain control with tylenol and lidocaine patch for now,pt is no longer on baclofen-stopped -daughter also reports pt takes scheduled percocet qid-reordered (2) Hypokalemia: Plan: -Likely poor oral intake and continue lasix use -No EKG changes noted -replaced and now improved -Continue home KCL while on lasix (3) Elevated troponin: Plan: -Noted to be 16.6 on ED labs , trended and peaked at 20 and back down this AM -No chest pain or ECG changes, likely due to demand has a h/o CABG continue ASA her metoprolol is n longer on her list, not sure why stopped since last admission continue statin (4) Paroxysmal atrial fibrillation: Plan: -S/P watchman procedure so not on anticoagulation -no longer on metoprolol as per recent outpt med list-rates here controlled and is in sinus on admission (5) Nonsustained ventricular tachycardia: Plan: -has ICD (6) CAD (coronary artery disease): Plan: -not on aspirin and metoprolol any more as per med list from outpt? continue asa here, hold metoprolol fo rnow and will find out why no longer on this h/o CABG continue statin (7) GERD (gastroesophageal reflux disease): Plan: -continue protonix (8) Chronic systolic CHF (congestive heart failure): Plan: -continue lasix and KCL -Appears euvolemic on exam (9) Dementia: Plan: -continue Seroquel, lamictal, and ativan (10) Chronic respiratory failure with hypoxia and hypercapnia: Plan: -Baseline O2 is 3L NC, currently stable on 3L NC here -Continue home breathing treatments with prn albuterol for wheezing (11) COPD (chronic obstructive pulmonary disease): Plan: -See chronic respiratory failure with hypoxia and hypercapnia Plan Dispo-stable for discharge, awaiting rehab placement Admission and Anticipated Discharge Date Admission Date: October 27, 2021 Subjective Pt has no complaints. Says "I feel much better." Daughter called in and spoke with nurse earlier about medication list and was upset that baclofen was still on list as thi has been discontinued as na outpt. Pt did receive a dose this AM and was sleeping for the morning as per RN but was wide awake and doing well when I saw her later in the day. Pt denies CP, SOB. Denies pain anywhere and has not received pain meds all day. Pt's daughter reports pt takes Percocet qid scheduled every day Review of Systems Review of Systems: All systems reviewed & are unremarkable except as noted in HPI & below Physical Exam Constitutional: WD/WN, vitals as above Eyes: PERRL, conjunctivae normal, anicteric sclerae ENMT: external ear and nose normal, oropharynx normal Neck: trachea midline, no thyromegaly Respiratory: normal respiratory effort, lungs clear to auscultation Cardiovascular: RRR, no murmur, no edema Chest (Breasts): Chest: normal inspection of chest Gastrointestinal (Abdomen): normal bowel sounds, soft, nontender, no hepatosplenomegaly Musculoskeletal: Extremities: extremities normal to inspection; no cyanosis and no clubbing Skin: no rashes, warm and dry Neurologic: moves all extremities and awake; no focal motor deficits Psychiatric: Orientation: alert, oriented to person, oriented to place and cooperative Lymphatic: no lymphedema Results & Data Results & Data ([facility]) Vital Signs (Past 12 Hours) Vital Signs Temp Pulse Pulse Resp BP Pulse Ox O2 Del Method 10/28/21 15:45 36.3 C L 83 20 111/68 95 Nasal Cannula 10/28/21 08:35 Nasal Cannula 10/28/21 09:56 37.2 C 91 H 122/75 O2 Flow Rate 10/28/21 15:45 2 10/28/21 08:35 2 10/28/21 09:56 Laboratory Results 10/28/21 05:35 10/28/21 05:35 PG Care Time/CCT Total # of Minutes Spent Total Time Spent with Patient: Total time spent is greater than 50% in coordination of care (as documented) at patient's floor/unit and/or counseling patient: Coding Level of Care Code 01316 Subseq Hosp Care Lvl 2 Diagnoses Fall W19.XXXA Encounter type: initial encounter Hypokalemia E87.6 Elevated troponin R77.8 Paroxysmal atrial fibrillation I48.0 Nonsustained ventricular tachycardia I47.2 CAD (coronary artery disease) I25.10 Associated angina: unspecified whether angina present Coronary Disease-Associated Artery/Lesion type: unspecified vessel or lesion type [place] vs. transplanted heart: unspecified whether [place] or transplanted heart GERD (gastroesophageal reflux disease) K21.9 Chronic systolic CHF (congestive heart failure) I50.22 Dementia F03.91 Dementia behavioral disturbance: with behavioral disturbance Dementia type: unspecified type Chronic respiratory failure with hypoxia and hypercapnia J96.11; J96.12 COPD (chronic obstructive pulmonary disease) J44.9 (1) CAD (coronary artery disease) Associated angina: unspecified whether angina present Coronary Disease- Associated Artery/Lesion type: unspecified vessel or lesion type [place] vs. transplanted heart: unspecified whether [place] or transplanted heart Qualified Code(s): I25.10 - Atherosclerotic heart disease of [place] coronary artery without angina pectoris (2) Dementia Dementia behavioral disturbance: with behavioral disturbance Dementia type: unspecified type Qualified Code(s): F03.91 - Unspecified dementia with behavioral disturbance (3) Fall Encounter type: initial encounter Qualified Code(s): W19.XXXA - Unspecified fall, initial encounter
[2021-10-28] MEDS: QUEtiapine FUMARATE 25 MG TABLET PO SCH (20:36)
[2021-10-28] MEDS: DOCUSATE SODIUM/SENNA 50/8.6MG TAB PO SCH (20:37)
[2021-10-28] MEDS: LIDOCAINE 5% 1 PATCH TD SCH (20:38)
[2021-10-28] MEDS: oxyCODONE/ACETAMINOPHEN 10-325 TAB PO SCH (20:39)
[2021-10-28] MEDS ORDERED: oxyCODONE/ACETAMINOPHEN 10-325 TAB PO SCH (21:00)
[2021-10-29] MEDS: SUCRALFATE 1 GM TAB PO SCH ×3 (06:28→15:39)
[2021-10-29] MEDS ORDERED: PARoxetine HCl CONTROLLED REL 12.5 MG TABCR PO SCH (09:00)
[2021-10-29] MEDS: oxyCODONE/ACETAMINOPHEN 10-325 TAB PO SCH ×4 (09:08→21:26)
[2021-10-29] MEDS: FLUTICASONE/VILANTEROL 100/25MCG 14 PUFFS/INHALER INH SCH (09:09)
[2021-10-29] MEDS: lamoTRIgine 100 MG TAB PO SCH ×2 (09:09→21:27)
[2021-10-29] MEDS: FUROSEMIDE 40 MG TAB PO SCH (09:09)
[2021-10-29] MEDS: ASPIRIN 81 MG ECTAB PO SCH (09:09)
[2021-10-29] MEDS: PANTOprazole 40 MG TAB PO SCH ×2 (09:09→21:28)
[2021-10-29] MEDS: cefTRIAXone SODIUM 1,000 MG in DEXTROSE 5% 50 ML IV SCH (10:20)
--- NOTE | 2021-10-29 13:32 | Hospitalist Progress Note ---
Date of Service October 29, 2021 Assessment & Plan (1) Fall: Plan: -with h/o falls and weakness, needs placement -UTI here may be contributing to worsening confusion Was previously in a NH but then was brought home after a few months at pt's request -Patient is currently afebrile, hemodynamically stable, and stable on her baseline 2-3L NC -Multiple mechanical falls at home, trauma workup here is negative, family is requesting placement -Fall precautions ordered -PT/OT consults placed -Pain control with tylenol and lidocaine patch, Percocet,,pt is no longer on baclofen-stopped -daughter also reports pt takes scheduled percocet but is okay with decreasing dose down every 8 hours (2) UTI (urinary tract infection): Plan: Abnormal UA on arrival, urine culture growing gram-negative rods Started on ceftriaxone on 10/28-continue narrow down to p.o. antibiotics once culture results and (3) Hypokalemia: Plan: -Likely poor oral intake and continue lasix use -No EKG changes noted -replaced and now improved -Continue home KCL while on lasix (4) Elevated troponin: Plan: -Noted to be 16.6 on ED labs , trended and peaked at 20 and back down this AM -No chest pain or ECG changes, likely due to demand has a h/o CABG continue ASA her metoprolol is no longer on her list, not sure why stopped since last admission-daughter is not sure either but is okay with restarting it -Restart Toprol-XL 25 mg p.o. once daily continue statin (5) Paroxysmal atrial fibrillation: Plan: -S/P watchman procedure so not on anticoagulation Was in sinus on EKG on admission and remains in a normal rhythm on examination, is not on telemetry Restart Toprol-XL 25 mg once daily (6) Nonsustained ventricular tachycardia: Plan: -has ICD With beta-ever as above (7) CAD (coronary artery disease): Plan: -Continue aspirin and metoprolol, statin h/o CABG (8) GERD (gastroesophageal reflux disease): Plan: -continue protonix (9) Chronic systolic CHF (congestive heart failure): Plan: -continue lasix and KCL -Appears euvolemic on exam (10) Dementia: Plan: -continue Seroquel, lamictal, and ativan-move this to bedtime as per daughter for sleep (11) Chronic respiratory failure with hypoxia and hypercapnia: Plan: -Baseline O2 is 3L NC, currently stable on 3L NC here -Continue home breathing treatments with prn albuterol for wheezing (12) COPD (chronic obstructive pulmonary disease): Plan: -See chronic respiratory failure with hypoxia and hypercapnia Plan Dispo-stable for discharge, awaiting rehab placement Admission and Anticipated Discharge Date Admission Date: October 27, 2021 Subjective Patient has no complaints except some right wrist and forearm pain. She is eating and drinking, denies chest pains or shortness of breath. She reports that she would like to go live with her brothers on their farm in [place]. I discussed this with her daughter who said that the patient's brothers are . Discussed her care with her daughter on the phone and reviewed the medication list in detail. Daughter reports that she alternates giving the Percocet between 3-4 times a day but does report patient gets a little bit loopy if she has it 4 times a day for more than a few days in a row. She does indeed take a baby aspirin at home and the patient's daughter is not sure why she is no longer on metoprolol but is okay with restarting it. Review of Systems Review of Systems: All systems reviewed & are unremarkable except as noted in HPI & below Physical Exam Constitutional: WD/WN, vitals as above Eyes: + anicteric sclerae ENMT: external ear and nose normal, oropharynx normal Neck: trachea midline, no thyromegaly Respiratory: normal respiratory effort, lungs clear to auscultation Cardiovascular: RRR, no murmur, no edema Chest (Breasts): Chest: normal inspection of chest Gastrointestinal (Abdomen): normal bowel sounds, soft, nontender, no hepatosplenomegaly Musculoskeletal: Extremities: extremities normal to inspection; no cyanosis and no clubbing Skin: no rashes, warm and dry Neurologic: moves all extremities and awake; no focal motor deficits Psychiatric: Orientation: alert, oriented to person, oriented to place and cooperative Lymphatic: no lymphedema Results & Data Results & Data ([facility]) Vital Signs (Past 12 Hours) Vital Signs Temp Pulse Resp BP Pulse Ox O2 Del Method O2 Flow Rate 10/29/21 08:36 Room Air 2 10/29/21 06:27 36.3 C L 89 16 117/75 92 Nasal Cannula 2 PG Care Time/CCT Total # of Minutes Spent Total Time Spent with Patient: Total time spent is greater than 50% in coordination of care (as documented) at patient's floor/unit and/or counseling patient: Coding Level of Care Code 74700 Subseq Hosp Care Lvl 2 Diagnoses Fall W19.XXXA Encounter type: initial encounter UTI (urinary tract infection) N39.0 Hypokalemia E87.6 Elevated troponin R77.8 Paroxysmal atrial fibrillation I48.0 Nonsustained ventricular tachycardia I47.2 CAD (coronary artery disease) I25.10 Associated angina: unspecified whether angina present Coronary Disease-Associated Artery/Lesion type: unspecified vessel or lesion type [place] vs. transplanted heart: unspecified whether [place] or transplanted heart GERD (gastroesophageal reflux disease) K21.9 Chronic systolic CHF (congestive heart failure) I50.22 Dementia F03.91 Dementia behavioral disturbance: with behavioral disturbance Dementia type: unspecified type Chronic respiratory failure with hypoxia and hypercapnia J96.11; J96.12 COPD (chronic obstructive pulmonary disease) J44.9 (1) CAD (coronary artery disease) Associated angina: unspecified whether angina present Coronary Disease- Associated Artery/Lesion type: unspecified vessel or lesion type [place] vs. transplanted heart: unspecified whether [place] or transplanted heart Qualified Code(s): I25.10 - Atherosclerotic heart disease of [place] coronary artery without angina pectoris (2) Dementia Dementia behavioral disturbance: with behavioral disturbance Dementia type: unspecified type Qualified Code(s): F03.91 - Unspecified dementia with behavioral disturbance (3) Fall Encounter type: initial encounter Qualified Code(s): W19.XXXA - Unspecified fall, initial encounter
[2021-10-29] MEDS: METOPROLOL SUCC 25MG EXT REL TAB PO SCH (14:32)
[2021-10-29] MEDS: POTASSIUM CHLORIDE CRTAB 20 MEQ TABCR PO SCH (14:33)
[2021-10-29] MEDS: ATORVASTATIN 40 MG TAB PO SCH (15:38)
[2021-10-29] MEDS ORDERED: LORazepam 0.5 MG TAB ONE (19:32)
[2021-10-29] MEDS: LORazepam 0.5 MG TAB PO SCH (19:33)
[2021-10-29] MEDS: QUEtiapine FUMARATE 25 MG TABLET PO SCH (19:33)
[2021-10-29] MEDS: DOCUSATE SODIUM/SENNA 50/8.6MG TAB PO SCH (21:26)
[2021-10-29] MEDS: LIDOCAINE 5% 1 PATCH TD SCH (21:27)
[2021-10-29] MEDS: MELATONIN 3 MG TAB PO PRN (21:27)
[2021-10-30] MEDS: oxyCODONE/ACETAMINOPHEN 10-325 TAB PO SCH ×3 (05:37→21:19)
[2021-10-30] MEDS: SUCRALFATE 1 GM TAB PO SCH ×3 (06:26→16:08)
[2021-10-30] MEDS: METOPROLOL SUCC 25MG EXT REL TAB PO SCH (08:41)
[2021-10-30] MEDS: PARoxetine HCl CONTROLLED REL 12.5 MG TABCR PO SCH (09:11)
[2021-10-30] MEDS: ASPIRIN 81 MG ECTAB PO SCH (09:11)
[2021-10-30] MEDS: PANTOprazole 40 MG TAB PO SCH ×2 (09:11→20:29)
[2021-10-30] MEDS: lamoTRIgine 100 MG TAB PO SCH ×2 (09:11→20:29)
[2021-10-30] MEDS: FLUTICASONE/VILANTEROL 100/25MCG 14 PUFFS/INHALER INH SCH (09:11)
[2021-10-30] MEDS: FUROSEMIDE 40 MG TAB PO SCH (09:12)
[2021-10-30] MEDS: cefTRIAXone SODIUM 1,000 MG in DEXTROSE 5% 50 ML IV SCH (09:16)
[2021-10-30] MEDS: ERTAPENEM SODIUM 1,000 MG in SYRINGE 0 ML IV SCH (10:47)
[2021-10-30] MEDS: POTASSIUM CHLORIDE CRTAB 20 MEQ TABCR PO SCH (14:09)
[2021-10-30] MEDS: ATORVASTATIN 40 MG TAB PO SCH (14:10)
--- NOTE | 2021-10-30 16:18 | Hospitalist Progress Note ---
Date of Service October 30, 2021 Assessment & Plan (1) Fall: Plan: -with h/o falls and weakness, needs placement -UTI here may be contributing to worsening confusion Was previously in a NH but then was brought home after a few months at pt's request -Patient is currently afebrile, hemodynamically stable, and stable on her baseline 2-3L NC -Multiple mechanical falls at home, trauma workup here is negative, family is requesting placement -Fall precautions ordered -PT/OT consults placed -Pain control with tylenol and lidocaine patch, Percocet,,pt is no longer on baclofen-stopped -daughter also reports pt takes scheduled percocet but is okay with decreasing dose down every 8 hours (2) UTI (urinary tract infection): Plan: Abnormal UA on arrival, urine culture growing ESBL E. coli sensitive to Augmentin, ertapenem, meropenem, nitrofurantoin, Zosyn, and Bactrim Did have a low grade fever here on 2nd hospital day but no signs of sepsis, flank pain, etc. so could be considered uncomplicated UTI Started on ceftriaxone on 10/28 and received 3 doses, but then switched to IV ertapenem on 10/30 once cx results returned -continue IV while here and then can convert to po Augmentin on discharge to finish out 7 day course-will d/w pharmacy to make sure this antibiotic choice seems appropriate (3) Hypokalemia: Plan: -Likely 2/2 poor oral intake and continue lasix use -No EKG changes noted -replaced and now improved -Continue home KCL while on lasix (4) Elevated troponin: Plan: -Noted to be 16.6 on ED labs , trended and peaked at 20 and back down this AM -No chest pain or ECG changes, likely due to demand has a h/o CABG continue ASA her metoprolol is no longer on her list, not sure why stopped since last admission-daughter is not sure either but is okay with restarting it -Restarted Toprol-XL 25 mg p.o. once daily but had SBP<100 today so was held--> will reduce dose to 12.5mg daily continue statin (5) Paroxysmal atrial fibrillation: Plan: -S/P watchman procedure so not on anticoagulation Was in sinus on EKG on admission and remains in a normal rhythm on examination, is not on telemetry Restarted Toprol-XL 12.5 mg once daily (6) Nonsustained ventricular tachycardia: Plan: -has ICD With beta-ever as above (7) CAD (coronary artery disease): Plan: -Continue aspirin and metoprolol, statin h/o CABG (8) GERD (gastroesophageal reflux disease): Plan: -continue protonix (9) Chronic systolic CHF (congestive heart failure): Plan: -continue lasix and KCL -Appears euvolemic on exam (10) Dementia: Plan: -continue Seroquel, lamictal, and ativan at bedtime as per daughter for sleep (11) Chronic respiratory failure with hypoxia and hypercapnia: Plan: -Baseline O2 is 3L NC, currently stable on 3L NC here -Continue home breathing treatments with prn albuterol for wheezing (12) COPD (chronic obstructive pulmonary disease): Plan: -See chronic respiratory failure with hypoxia and hypercapnia Plan Dispo-stable for discharge, awaiting rehab placement Admission and Anticipated Discharge Date Admission Date: October 27, 2021 Subjective Feels well, no pain, no complaints. Remains pleasantly confused Review of Systems Review of Systems: All systems reviewed & are unremarkable except as noted in HPI & below Physical Exam Constitutional: WD/WN, vitals as above Eyes: + anicteric sclerae Neck: trachea midline, no thyromegaly Respiratory: normal respiratory effort, lungs clear to auscultation Cardiovascular: RRR, no murmur, no edema Chest (Breasts): Chest: normal inspection of chest Gastrointestinal (Abdomen): normal bowel sounds, soft, nontender, no hepatosplenomegaly Musculoskeletal: Extremities: extremities normal to inspection; no cyanosis and no clubbing Skin: no rashes, warm and dry Neurologic: moves all extremities and awake; no focal motor deficits Psychiatric: Orientation: alert, oriented to person, oriented to place and cooperative Lymphatic: no lymphedema Results & Data Results & Data ([facility]) Vital Signs (Past 12 Hours) Vital Signs Temp Pulse Resp BP Pulse Ox O2 Del Method O2 Flow Rate 10/30/21 09:34 Nasal Cannula 3 10/30/21 05:38 36.4 C L 81 20 98/63 L 93 Room Air PG Care Time/CCT Total # of Minutes Spent Total Time Spent with Patient: Total time spent is greater than 50% in coordination of care (as documented) at patient's floor/unit and/or counseling patient: Coding Level of Care Code 98149 Subseq Hosp Care Lvl 2 Diagnoses Fall W19.XXXA Encounter type: initial encounter UTI (urinary tract infection) N39.0 Hypokalemia E87.6 Elevated troponin R77.8 Paroxysmal atrial fibrillation I48.0 Nonsustained ventricular tachycardia I47.2 CAD (coronary artery disease) I25.10 Associated angina: unspecified whether angina present Coronary Disease-Associated Artery/Lesion type: unspecified vessel or lesion type [place] vs. transplanted heart: unspecified whether [place] or transplanted heart GERD (gastroesophageal reflux disease) K21.9 Chronic systolic CHF (congestive heart failure) I50.22 Dementia F03.91 Dementia behavioral disturbance: with behavioral disturbance Dementia type: unspecified type Chronic respiratory failure with hypoxia and hypercapnia J96.11; J96.12 COPD (chronic obstructive pulmonary disease) J44.9 (1) Fall Encounter type: initial encounter Qualified Code(s): W19.XXXA - Unspecified fall, initial encounter (2) CAD (coronary artery disease) Associated angina: unspecified whether angina present Coronary Disease- Associated Artery/Lesion type: unspecified vessel or lesion type [place] vs. transplanted heart: unspecified whether [place] or transplanted heart Qualified Code(s): I25.10 - Atherosclerotic heart disease of [place] coronary artery without angina pectoris (3) Dementia Dementia behavioral disturbance: with behavioral disturbance Dementia type: unspecified type Qualified Code(s): F03.91 - Unspecified dementia with b ehavioral disturbance
[2021-10-30] MEDS: LORazepam 0.5 MG TAB PO SCH (20:29)
[2021-10-30] MEDS: LIDOCAINE 5% 1 PATCH TD SCH (20:29)
[2021-10-30] MEDS: QUEtiapine FUMARATE 25 MG TABLET PO SCH (20:29)
[2021-10-30] MEDS: DOCUSATE SODIUM/SENNA 50/8.6MG TAB PO SCH (20:29)
[2021-10-30] MEDS: MELATONIN 3 MG TAB PO PRN (21:19)
[2021-10-31] MEDS: oxyCODONE/ACETAMINOPHEN 10-325 TAB PO SCH ×3 (06:04→21:10)
[2021-10-31 07:25] LABS: Basophils # (auto) 0.02 K/uL (0-0.2); Basophils % (auto) 0.4 %; Eosinophils # (auto) 0.38 K/uL (0-0.50); Eosinophils % (auto) 8.4 %; Hematocrit (blood only) 32.8 % (34.1-44.9); Hemoglobin 10.5 g/dl (12.0-16.0); Immature Granulocytes # (auto) 0.02 K/uL (0.00-0.02); Immature Granulocytes % (auto) 0.4 %; Lymphocytes % (auto) 24.3 %; Mean Corpuscular Hemoglobin 28.5 pg (25.0-34.0); Mean Corpuscular Volume 88.9 fL (80.0-100.0); Mean Platelet Volume 9.7 fL (9.4-12.3); Monocytes # (auto) 0.73 K/uL (0.24-0.82); Monocytes % (auto) 16.1 %; Neutrophils # (auto) 2.28 K/uL (1.4-6.5); Neutrophils % (auto) 50.4 %; Platelet Count 210 K/uL (130-400); RDW Coefficient of Variation 14.4 % (11.5-14.5); RDW Standard Deviation 46.5 fL (36.4-46.3); Red Blood Count 3.69 M/uL (3.93-5.22); White Blood Count 4.53 K/ul (4.8-10.8)
[2021-10-31 08:05] LABS: Albumin Globulin Ratio 1.2 (0.9-2); BUN Creatinine Ratio 21.1 (10-20); Bilirubin,Total 0.3 mg/dl (0.2-1.0); Calcium 9.2 mg/dl (8.5-10.1); Creatinine Clr Calc Pharmacy 47.5 ml/min; Est GFR (African American) 91.3 ml/min; Est GFR (Non-African American) 78.8 ml/min; Globulin 2.6 gm/dl (2.5-4.0); Magnesium 1.7 mg/dl (1.7-2.4); Potassium 3.8 mmol/L (3.5-5.1); Total Protein 5.6 gm/dl (6.0-8.3)
[2021-10-31] MEDS: lamoTRIgine 100 MG TAB PO SCH ×2 (09:53→21:09)
[2021-10-31] MEDS: SUCRALFATE 1 GM TAB PO SCH ×3 (09:54→17:35)
[2021-10-31] MEDS: ASPIRIN 81 MG ECTAB PO SCH (09:54)
[2021-10-31] MEDS: PARoxetine HCl CONTROLLED REL 12.5 MG TABCR PO SCH (09:54)
[2021-10-31] MEDS: PANTOprazole 40 MG TAB PO SCH ×2 (09:54→21:08)
[2021-10-31] MEDS: FLUTICASONE/VILANTEROL 100/25MCG 14 PUFFS/INHALER INH SCH (09:55)
[2021-10-31] MEDS: METOPROLOL SUCC 25MG EXT REL TAB PO SCH (09:58)
[2021-10-31] MEDS: FUROSEMIDE 40 MG TAB PO SCH (09:58)
[2021-10-31] MEDS: ERTAPENEM SODIUM 1,000 MG in SYRINGE 0 ML IV SCH (10:46)
[2021-10-31] MEDS: POTASSIUM CHLORIDE CRTAB 20 MEQ TABCR PO SCH (14:57)
[2021-10-31] MEDS: ATORVASTATIN 40 MG TAB PO SCH (14:57)
--- NOTE | 2021-10-31 18:40 | Hospitalist Progress Note ---
Date of Service October 31, 2021 Assessment & Plan (1) Fall: Plan: -with h/o falls and weakness, needs placement -UTI here may be contributing to worsening confusion Was previously in a NH but then was brought home after a few months at pt's request and her daughter has been taking care of her 28/08 on her own for the last 5 weeks -Patient is currently afebrile, hemodynamically stable, and stable on her baseline 2-3L NC -Multiple mechanical falls at home, trauma workup here is negative, family is requesting placement -Fall precautions ordered -PT/OT consults placed -Pain control with tylenol and lidocaine patch, Percocet scheduled-has a long history of chronic neck and back pain for which she used to receive injections and see pain management -daughter also reports pt takes scheduled percocet but is okay with decreasing dose down every 8 hours (2) UTI (urinary tract infection): Plan: Abnormal UA on arrival, urine culture growing ESBL E. coli sensitive to Augmentin, ertapenem, meropenem, nitrofurantoin, Zosyn, and Bactrim Did have a low grade fever here on 2nd hospital day but no signs of sepsis, flank pain, etc. so could be considered uncomplicated UTI Started on ceftriaxone on 10/28 and received 3 doses, but then switched to IV ertapenem on 10/30 once cx results returned Discussed antibiotic choice with pharmacy given the ESBL E. coli-despite sensitivities to Augmentin, Bactrim, pharmacy does recommend either nitrofurantoin or fosfomycin as more is known about the effectiveness of these drugs with ESBL E. coli. -Received 1 more dose of IV ertapenem on 10/31 and then convert to nitrofurantoin twice daily on 11/01 to finish out 7-day course (3) Hypokalemia: Plan: -Likely 2/2 poor oral intake and continue lasix use -No EKG changes noted -replaced and now improved -Continue home KCL while on lasix (4) Depression: Plan: In speaking with the patient's daughter on the phone, she has great concerns about the patient having significant depression. She reports that the patient has become withdrawn even from her favorite family members that she usually speaks to. Is refusing to take phone calls from people. Has been eating very minimally and has lost weight as per daughter. She has also made statements that she wishes her life was over, but is not threatening to harm herself. Daughter is requesting consultation with a therapist or a rn picu and is interested in perhaps starting her mother on an additional or different antidepressant. -Remeron would be a good option to stimulate appetite, help with depression, and help with insomnia from which the patient suffers-defer to psychiatry for choice of drug -Consult solution consultant as per daughter's request -Consult psychiatry at daughter's request (5) Elevated troponin: Plan: -Noted to be 16.6 on ED labs , trended and peaked at 20 and back down the morning after admission -No chest pain or ECG changes, likely due to demand ischemia has a h/o CABG continue ASA her metoprolol is no longer on her list, not sure why stopped since last admission-daughter is not sure either but is okay with restarting it -Restarted Toprol-XL 25 mg p.o. once daily but had SBP<100 so reduced dose to 12.5mg daily continue statin (6) Paroxysmal atrial fibrillation: Plan: -S/P watchman procedure so not on anticoagulation Was in sinus on EKG on admission and remains in a normal rhythm on examination, is not on telemetry Restarted Toprol-XL 12.5 mg once daily (7) Nonsustained ventricular tachycardia: Plan: -has ICD With beta-ever as above (8) CAD (coronary artery disease): Plan: -Continue aspirin and metoprolol, statin h/o CABG (9) GERD (gastroesophageal reflux disease): Plan: -continue protonix (10) Chronic systolic CHF (congestive heart failure): Plan: -continue lasix and KCL -Appears euvolemic on exam (11) Dementia: Plan: -continue Seroquel, lamictal, and ativan at bedtime as per daughter for sleep (12) Chronic respiratory failure with hypoxia and hypercapnia: Plan: -Baseline O2 is 3L NC, currently stable on 3L NC here -Continue home breathing treatments with prn albuterol for wheezing (13) COPD (chronic obstructive pulmonary disease): Plan: -See chronic respiratory failure with hypoxia and hypercapnia (14) Anemia: Plan: Hemoglobin mildly low at 10.5, normocytic Likely anemia of chronic disease B12, folate, and iron studies in 02/2021 all normal No bleeding from anywhere Plan Dispo-stable for discharge, awaiting rehab placement-multiple referrals made by case management, awaiting bed availability Admission and Anticipated Discharge Date Admission Date: October 27, 2021 Subjective Pleasantly confused at times. Does describe pain in her neck and her back which is her usual complaints as per daughter. Otherwise no new issues. In speaking with the patient's daughter on the phone today, she has great concerns about the patient having significant depression. She reports that the patient has become withdrawn even from her favorite family members that she usually speaks to. Is refusing to take phone calls from people. Has been eating very minimally and has lost weight as per daughter. She has also made statements that she wishes her life was over, but is not threatening to harm herself. Daughter is requesting consultation with a therapist or a rn picu and is interested in perhaps starting her mother on an additional or different antidepressant. Review of Systems Review of Systems: All systems reviewed & are unremarkable except as noted in HPI & below Physical Exam Constitutional: WD/WN, vitals as above Eyes: + anicteric sclerae Neck: trachea midline, no thyromegaly Respiratory: normal respiratory effort, lungs clear to auscultation Cardiovascular: RRR, no murmur, no edema Chest (Breasts): Chest: normal inspection of chest Gastrointestinal (Abdomen): normal bowel sounds, soft, nontender, no hepato splenomegaly Musculoskeletal: Extremities: extremities normal to inspection; no cyanosis and no clubbing Skin: no rashes, warm and dry Neurologic: moves all extremities and awake; no focal motor deficits Psychiatric: Orientation: alert, oriented to person, oriented to place and cooperative Lymphatic: no lymphedema Results & Data Results & Data ([facility]) Vital Signs (Past 12 Hours) Vital Signs Temp Pulse Pulse Resp BP BP Pulse Ox 10/31/21 14:33 36.6 C 73 18 112/72 97 10/31/21 07:45 10/31/21 09:56 74 113/74 10/31/21 08:25 36.5 C 74 16 100/66 97 O2 Del Method O2 Flow Rate 10/31/21 14:33 Nasal Cannula 3 10/31/21 07:45 Nasal Cannula 3 10/31/21 09:56 10/31/21 08:25 Nasal Cannula 3 Laboratory Results 10/31/21 10/31/21 Range/Units 06:44 06:44 WBC 4.53 L (4.8-10.8) K/ul RBC 3.69 L (3.93-5.22) M/uL Hgb 10.5 L (12.0-16.0) g/dl Hct 32.8 L (34.1-44.9) % MCV 88.9 (80.0-100.0) fL MCH 28.5 (25.0-34.0) pg MCHC 32.0 (32.0-36.0) g/dL RDW Std Deviation 46.5 H (36.4-46.3) fL RDW Coeff of Eric 14.4 (11.5-14.5) % Plt Count 210 (130-400) K/uL MPV 9.7 (9.4-12.3) fL Immature Gran % (Auto) 0.4 % Neut % (Auto) 50.4 % Lymph % (Auto) 24.3 % [place] % (Auto) 16.1 % Eos % (Auto) 8.4 % Baso % (Auto) 0.4 % Neut # (Auto) 2.28 (1.4-6.5) K/uL Lymph # (Auto) 1.10 L (1.2-3.4) K/uL [place] # (Auto) 0.73 (0.24-0.82) K/uL Eos # (Auto) 0.38 (0-0.50) K/uL Baso # (Auto) 0.02 (0-0.2) K/uL Immature Gran # (Auto) 0.02 (0.00-0.02) K/uL Sodium 138 (136-145) mmol/L Potassium 3.8 (3.5-5.1) mmol/L Chloride 101 (98-107) mmol/L Carbon Dioxide 32 (21-32) mmol/L Anion Gap 5 (3-11) BUN 15 (6-23) mg/dl Creatinine 0.71 (0.6-1.2) mg/dl Est Cr Clr Drug Dosing 47.5 ml/min Est GFR ( Amer) 91.3 ml/min Est GFR (Non-Af Amer) 78.8 ml/min BUN/Creatinine Ratio 21.1 H (10-20) Glucose 99 (70-99(Fasting)) mg/dl Calcium 9.2 (8.5-10.1) mg/dl Magnesium 1.7 (1.7-2.4) mg/dl Total Bilirubin 0.3 (0.2-1.0) mg/dl AST 11 L (13-39) U/L ALT 7 (7-52) U/L Alkaline Phosphatase 53 (34-104) U/L Total Protein 5.6 L (6.0-8.3) gm/dl Albumin 3.0 L (3.4-5.0) gm/dl Globulin 2.6 (2.5-4.0) gm/dl Albumin/Globulin Ratio 1.2 (0.9-2) PG Care Time/CCT Total # of Minutes Spent Total Time Spent with Patient: Total time spent is greater than 50% in coordination of care (as documented) at patient's floor/unit and/or counseling patient: Coding Level of Care Code 83961 Subseq Hosp Care Lvl 2 Diagnoses Fall W19.XXXA Encounter type: initial encounter UTI (urinary tract infection) N39.0 Hypokalemia E87.6 Depression F32.A Elevated troponin R77.8 Paroxysmal atrial fibrillation I48.0 Nonsustained ventricular tachycardia I47.2 CAD (coronary artery disease) I25.10 Associated angina: unspecified whether angina present Coronary Disease-Associated Artery/Lesion type: unspecified vessel or lesion type [place] vs. transplanted heart: unspecified whether [place] or transplanted heart GERD (gastroesophageal reflux disease) K21.9 Chronic systolic CHF (congestive heart failure) I50.22 Dementia F03.91 Dementia behavioral disturbance: with behavioral disturbance Dementia type: unspecified type Chronic respiratory failure with hypoxia and hypercapnia J96.11; J96.12 COPD (chronic obstructive pulmonary disease) J44.9 Anemia D64.9 (1) CAD (coronary artery disease) Associated angina: unspecified whether angina present Coronary Disease- Associated Artery/Lesion type: unspecified vessel or lesion type [place] vs. transplanted heart: unspecified whether [place] or transplanted heart Qualified Code(s): I25.10 - Atherosclerotic heart disease of [place] coronary artery without angina pectoris (2) Dementia Dementia behavioral disturbance: with behavioral disturbance Dementia type: unspecified type Qualified Code(s): F03.91 - Unspecified dementia with behavioral disturbance (3) Fall Encounter type: initial encounter Qualified Code(s): W19.XXXA - Unspecified fall, initial encounter
[2021-10-31] MEDS: LIDOCAINE 5% 1 PATCH TD SCH (21:06)
[2021-10-31] MEDS: QUEtiapine FUMARATE 25 MG TABLET PO SCH (21:07)
[2021-10-31] MEDS: MELATONIN 3 MG TAB PO PRN (21:09)
[2021-10-31] MEDS: DOCUSATE SODIUM/SENNA 50/8.6MG TAB PO SCH (21:09)
[2021-10-31] MEDS: LORazepam 0.5 MG TAB PO SCH (21:09)
[2021-11-01] MEDS: oxyCODONE/ACETAMINOPHEN 10-325 TAB PO SCH ×3 (06:30→21:18)
[2021-11-01] MEDS: NITROFURANTOIN MONOHYDRATE 100 MG CAP PO SCH ×2 (09:21→21:20)
[2021-11-01] MEDS: PANTOprazole 40 MG TAB PO SCH ×2 (09:21→21:17)
[2021-11-01] MEDS: lamoTRIgine 100 MG TAB PO SCH ×2 (09:21→21:20)
[2021-11-01] MEDS: ASPIRIN 81 MG ECTAB PO SCH (09:22)
[2021-11-01] MEDS: SUCRALFATE 1 GM TAB PO SCH ×3 (09:23→16:27)
[2021-11-01] MEDS: PARoxetine HCl CONTROLLED REL 12.5 MG TABCR PO SCH (09:24)
[2021-11-01] MEDS: FLUTICASONE/VILANTEROL 100/25MCG 14 PUFFS/INHALER INH SCH (09:27)
[2021-11-01] MEDS: FUROSEMIDE 40 MG TAB PO SCH (11:17)
[2021-11-01] MEDS: METOPROLOL SUCC 25MG EXT REL TAB PO SCH (11:18)
--- NOTE | 2021-11-01 15:35 | Psychiatric Consultation ---
Date of Consultation November 01, 2021 Impression / Recommendations Impression 81 yo female with personality change at home coinciding with progression of dementia, placement is pending. Patient's family expressed concern about worsening of depression/possible medication change given changes in sleep/appetite. Unclear how long patient has been on combo of Paxil CR 37.5 mg, Seroquel, and Lamictal as all are used for depression, behavioral disturbance in dementia, and /or bipolar. Last rx's appear to be by [facility]. (1) Dementia: Dementia behavioral disturbance: with behavioral disturbance Dementia type: unspecified type Qualified Code(s): F03.91 - Unspecified dementia with behavioral disturbance Plan awaiting more hx from family but changing antidepressants seems rather low yield and seems that nursing needs are primary. Options to further trials would be Paxil CR 50 mg vs. Augmentation with Remeron though if already requiring Seroquel could adjust rather than introducing a 4th psychiatric medication but certainly also carry warnings for elderly with dementia and she is not acutely agitated. Suggest continue current meds unchanged and readdress as settles in placement. Psych History Identifying Data The patient is an 81 yo female who lives with daughter in [place]. Consult is by the hospitalist service at the request of daughter. Chief Complaint "I'm good, you're not needed." History of Present Illness Patient declined interaction with the liaison last night. I attempted to speak with patient to complete consult and she allowed me to minimally assist her during her meal so questions were still limited and she essentially declined consult. Chart had already been reviewed. LM for daughter requesting collateral. Per hospitalist: In speaking with the patient's daughter on the phone, she has great concerns about the patient having significant depression. She reports that the patient has become withdrawn even from her favorite family members that she usually speaks to. Is refusing to take phone calls from people. Has been eating very minimally and has lost weight as per daughter. She has also made statements that she wishes her life was over, but is not threatening to harm herself. Allergies Allergy/AdvReac Type Severity Reaction Status Date / Time No Known Allergies Allergy Verified 07/10/21 10:55 Home Medications Medication Instructions Recorded Confirmed Type Lactobac 51-Bifidobac 1 cap PO DAILY@1200 03/28/20 10/28/21 History 3-L.lactis-S.thermophilus 4 billion cell capsule (Daily Probiotic (10 Strains)) atorvastatin 40 mg tablet 40 mg PO DAILY@1500 03/28/20 10/28/21 History furosemide 40 mg tablet 40 mg PO QAM 03/28/20 10/28/21 History lamotrigine 100 mg tablet 100 mg PO AMHS 03/28/20 10/28/21 History multivitamin with calcium and 1 tab PO DAILY 03/28/20 10/28/21 History minerals-folic acid 200 mcg tablet (One-A-Day Proactive 65 Plus) naloxegol 25 mg tablet (Movantik) 25 mg PO QAM 03/28/20 10/28/21 History oxycodone-acetaminophen 10 mg-325 1 tab PO QID 03/28/20 10/28/21 History mg tablet potassium chloride 20 mEq 20 meq PO DAILY@1500 03/28/20 10/28/21 History tablet,extended release(part/cryst) sennosides 8.6 mg-docusate sodium 1 tab PO HS 03/28/20 10/28/21 History 50 mg tablet (Stool Softener-Laxative) fluticasone furoate 100 1 inh inhalation DAILY 02/08/21 10/30/21 History mcg-vilanterol 25 mcg/dose inhalation powder (Breo Ellipta) sucralfate 1 gram tablet 1 g PO TID 02/27/21 10/28/21 History aspirin 81 mg tablet,delayed 81 mg PO QAM 05/28/21 10/30/21 History release lorazepam 0.5 mg tablet 0.5 mg PO HS 05/28/21 10/29/21 History quetiapine 25 mg tablet 50 mg PO HS 30 days #1 tab 07/20/21 10/28/21 Rx omeprazole 20 mg capsule,delayed 20 mg PO BID 10/28/21 10/28/21 History release biotin 10,000 mcg capsule 10,000 mcg PO DAILY 10/29/21 10/29/21 History cyanocobalamin (vitamin B-12) 500 500 mcg PO DAILY 10/29/21 10/29/21 History mcg tablet metoprolol succinate 25 mg 25 mg PO QAM 10/29/21 10/29/21 History tablet,extended release 24 hr paroxetine HCl 37.5 mg 37.5 mg PO QAM 09/24/22 09/24/22 History tablet,extended release 24 hr Family History unable to complete Personal History Beliefs That Will Affect Care: None Patient History Medical History Anemia Arthritis CAD (coronary artery disease) Cardiomyopathy Chronic back pain Chronic systolic CHF (congestive heart failure) Dementia Depression Elevated troponin GERD (gastroesophageal reflux disease) Goiter, nodular Hypokalemia Influenza A Mitral regurgitation Myocardial infarction Nephrolithiasis Nonsustained ventricular tachycardia Paroxysmal atrial fibrillation Peripheral neuropathy Presence of Watchman left atrial appendage closure device Ulcerative colitis Surgical History AICD (automatic cardioverter/defibrillator) present Hx of cholecystectomy S/P CABG x 2 Social History Smoking Status: Current every day smoker Tobacco Type: Cigarettes Cigarettes Per Day: 1 pack per day; Second Hand Exposure: No; Do You Dip or Chew Tobacco: No; Hx Alcohol Use: No Hx Substance Use: No Preferred Language: Argentine Communication Ability: Effective Recycling Attendant Required: No Beliefs That Will Affect Care: None marital status: Current Living Situation: Family Current Living Situation Comment: Caregivers, see CM note in EHR current occupational status: retired How many Children do You have: 3 Feels Safe at Home: Yes Safety Concerns: Feels Safe At This Time Assistive Devices: Walker Physical Exam Psychiatric: Orientation: alert and oriented to person Apperance: + disheveled Eye Contact: + poor eye contact Motor Behavior: + tremor Speech: + abnormal rate/rhythm/volume of speech Affect: + constricted affect Mood: no anxious mood Thought Process: + concrete thought process Suicidal Thoughts: denies suicidal thoughts Homicidal Thoughts: denies homicidal thoughts Hallucinations: no auditory hallucinations and no visual hallucinations Cognition: + attention not intact Vital Signs (Past 24 Hours): Last Vital Signs Temp 36.6 C 10/31/21 21:01 Pulse 82 11/01/21 09:09 Resp 16 11/01/21 09:09 BP 93/62 L 11/01/21 09:39 Pulse Ox 93 11/01/21 09:09 O2 Del Method 11/01/21 09:30 O2 Flow Rate 3 11/01/21 09:30 Review of Systems All systems reviewed & are unremarkable except as noted in HPI & below Results & Data (PSY) Laboratory Results Microbiology 10/27/21 18:25 Urine,Clean Catch Urine Culture - Final Escherichia coli ESBL Labs 10/27/21 10/27/21 10/27/21 15:00 15:00 15:00 WBC 5.75 RBC 4.30 Hgb 12.3 Hct 38.2 MCV 88.8 MCH 28.6 MCHC 32.2 RDW Std Deviation 45.8 RDW Coeff of Eric 14.2 Plt Count 311 MPV 10.2 Immature Gran % (Auto) 0.3 Neut % (Auto) 69.6 Lymph % (Auto) 15.5 [place] % (Auto) 11.5 Eos % (Auto) 2.8 Baso % (Auto) 0.3 Neut # (Auto) 4.00 Lymph # (Auto) 0.89 L [place] # (Auto) 0.66 Eos # (Auto) 0.16 Baso # (Auto) 0.02 Immature Gran # (Auto) 0.02 PT 11.6 INR 1.1 APTT 28.3 PTT Ratio 1.0 Sodium 141 Potassium 3.0 L Chloride 97 L Carbon Dioxide 34 H Anion Gap 10 BUN 12 Creatinine 0.61 Est Cr Clr Drug Dosing 55.3 Est GFR ( Amer) 97.2 Est GFR (Non-Af Amer) 83.8 BUN/Creatinine Ratio 19.7 Glucose 98 Calcium 9.5 Magnesium Total Bilirubin 0.4 AST 24 ALT 10 Alkaline Phosphatase 66 Troponin I High Sens 16.6 H D Total Protein 6.6 Albumin 3.5 Globulin 3.1 Albumin/Globulin Ratio 1.1 Lipase 7 L Urine Color Urine Appearance Urine pH Ur Specific [place] Urine Protein Urine Glucose (UA) Urine Ketones Urine Blood Urine Nitrite Urine Bilirubin Urine Urobilinogen Ur Leukocyte Esterase Urine WBC (Auto) Urine RBC (Auto) U Hyaline Cast (Auto) U Epithel Cells (Auto) Urine Bacteria (Auto) SARS-CoV-2, RNA, NAAT 10/27/21 10/27/21 10/27/21 15:00 18:25 19:06 WBC RBC Hgb Hct MCV MCH MCHC RDW Std Deviation RDW Coeff of Eric Plt Count MPV Immature Gran % (Auto) Neut % (Auto) Lymph % (Auto) [place] % (Auto) Eos % (Auto) Baso % (Auto) Neut # (Auto) Lymph # (Auto) [place] # (Auto) Eos # (Auto) Baso # (Auto) Immature Gran # (Auto) PT INR APTT PTT Ratio Sodium Potassium Chloride Carbon Dioxide Anion Gap BUN Creatinine Est Cr Clr Drug Dosing Est GFR ( Amer) Est GFR (Non-Af Amer) BUN/Creatinine Ratio Glucose Calcium Magnesium 1.7 Total Bilirubin AST ALT Alkaline Phosphatase Troponin I High Sens 20.0 H Total Protein Albumin Globulin Albumin/Globulin Ratio Lipase Urine Color Dark Yellow Urine Appearance Cloudy A Urine pH 5.5 Ur Specific [place] 1.030 Urine Protein 1+ H Urine Glucose (UA) Negative Urine Ketones 2+ H Urine Blood Negative Urine Nitrite Positive A Urine Bilirubin 1+ H Urine Urobilinogen Negative Ur Leukocyte Esterase 2+ H Urine WBC (Auto) >30 H Urine RBC (Auto) 0-4 U Hyaline Cast (Auto) Not Reportable U Epithel Cells (Auto) >30 H Urine Bacteria (Auto) 4+ H SARS-CoV-2, RNA, NAAT NEGATIVE 10/28/21 10/28/21 10/28/21 05:35 05:35 10:09 WBC 6.04 RBC 3.84 L Hgb 11.1 L Hct 33.3 L MCV 86.7 MCH 28.9 MCHC 33.3 RDW Std Deviation 45.1 RDW Coeff of Eric 14.2 Plt Count 282 MPV 10.0 Immature Gran % (Auto) Neut % (Auto) Lymph % (Auto) [place] % (Auto) Eos % (Auto) Baso % (Auto) Neut # (Auto) Lymph # (Auto) [place] # (Auto) Eos # (Auto) Baso # (Auto) Immature Gran # (Auto) PT INR APTT PTT Ratio Sodium 140 Potassium 3.9 D Chloride 102 Carbon Dioxide 32 Anion Gap 6 BUN 13 Creatinine 0.75 Est Cr Clr Drug Dosing 45.0 Est GFR ( Amer) 85.4 Est GFR (Non-Af Amer) 73.7 BUN/Creatinine Ratio 17.3 Glucose 93 Calcium 9.2 Magnesium 1.7 Total Bilirubin AST ALT Alkaline Phosphatase Troponin I High Sens 14.3 H D Total Protein Albumin Globulin Albumin/Globulin Ratio Lipase Urine Color Urine Appearance Urine pH Ur Specific [place] Urine Protein Urine Glucose (UA) Urine Ketones Urine Blood Urine Nitrite Urine Bilirubin Urine Urobilinogen Ur Leukocyte Esterase Urine WBC (Auto) Urine RBC (Auto) U Hyaline Cast (Auto) U Epithel Cells (Auto) Urine Bacteria (Auto) SARS-CoV-2, RNA, NAAT 10/31/21 10/31/21 06:44 06:44 WBC 4.53 L RBC 3.69 L Hgb 10.5 L Hct 32.8 L MCV 88.9 MCH 28.5 MCHC 32.0 RDW Std Deviation 46.5 H RDW Coeff of Eric 14.4 Plt Count 210 MPV 9.7 Immature Gran % (Auto) 0.4 Neut % (Auto) 50.4 Lymph % (Auto) 24.3 [place] % (Auto) 16.1 Eos % (Auto) 8.4 Baso % (Auto) 0.4 Neut # (Auto) 2.28 Lymph # (Auto) 1.10 L [place] # (Auto) 0.73 Eos # (Auto) 0.38 Baso # (Auto) 0.02 Immature Gran # (Auto) 0.02 PT INR APTT PTT Ratio Sodium 138 Potassium 3.8 Chloride 101 Carbon Dioxide 32 Anion Gap 5 BUN 15 Creatinine 0.71 Est Cr Clr Drug Dosing 47.5 Est GFR ( Amer) 91.3 Est GFR (Non-Af Amer) 78.8 BUN/Creatinine Ratio 21.1 H Glucose 99 Calcium 9.2 Magnesium 1.7 Total Bilirubin 0.3 AST 11 L ALT 7 Alkaline Phosphatase 53 Troponin I High Sens Total Protein 5.6 L Albumin 3.0 L Globulin 2.6 Albumin/Globulin Ratio 1.2 Lipase Urine Color Urine Appearance Urine pH Ur Specific [place] Urine Protein Urine Glucose (UA) Urine Ketones Urine Blood Urine Nitrite Urine Bilirubin Urine Urobilinogen Ur Leukocyte Esterase Urine WBC (Auto) Urine RBC (Auto) U Hyaline Cast (Auto) U Epithel Cells (Auto) Urine Bacteria (Auto) SARS-CoV-2, RNA, NAAT Medications Administered Aspirin (Aspirin 81 Mg Ectab) [facility] [place] Stop: 11/27/21 08:59 Last Admin: 11/01/21 09:22 Dose: 81 mg Documented By: Admin: 10/31/21 09:54 Dose: 81 mg Documented By: Admin: 10/30/21 09:11 Dose: 81 mg Documented By: Admin: 10/29/21 09:09 Dose: 81 mg Documented By: Admin: 10/28/21 09:58 Dose: 81 mg Documented By: [facility] Atorvastatin Calcium (Atorvastatin 40 Mg Tab) 40 mg PO DAILY@1500 [facility] Stop: 11/27/21 14:59 Last Admin: 10/31/21 14:57 Dose: 40 mg Documented By: Admin: 10/30/21 14:10 Dose: 40 mg Documented By: Admin: 10/29/21 15:38 Dose: 40 mg Documented By: Admin: 10/28/21 15:34 Dose: 40 mg Documented By: MATTHEW Fluticasone/Vilanterol (Fluticasone/Vilanterol 100/25mcg 14 Puffs/Inhaler) 1 puffs INH DAILY [facility] Stop: 11/27/21 08:59 Last Admin: 11/01/21 09:27 Dose: 1 puffs Documented By: Admin: 10/31/21 09:55 Dose: 1 puffs Documented By: Admin: 10/30/21 09:11 Dose: 1 puffs Documented By: Admin: 10/29/21 09:09 Dose: 1 puffs Documented By: Admin: 10/28/21 09:59 Dose: 1 puffs Documented By: MATTHEW Furosemide (Furosemide 40 Mg Tab) 40 mg PO QAM [facility] Stop: 11/27/21 08:59 Last Admin: 11/01/21 11:17 Dose: Not Given Documented By: Admin: 10/31/21 09:58 Dose: 40 mg Documented By: Admin: 10/30/21 09:12 Dose: Not Given Documented By: Admin: 10/29/21 09:09 Dose: 40 mg Documented By: Admin: 10/28/21 09:59 Dose: 40 mg Documented By: MATTHEW Lamotrigine (Lamotrigine 100 Mg Tab) 100 mg PO AMHS [facility] Stop: 11/26/21 20:59 Last Admin: 11/01/21 09:21 Dose: 100 mg Documented By: Admin: 10/31/21 21:09 Dose: 100 mg Documented By: Admin: 10/31/21 09:53 Dose: 100 mg Documented By: Admin: 10/30/21 20:29 Dose: 100 mg Documented By: Admin: 10/30/21 09:11 Dose: 100 mg Documented By: Admin: 10/29/21 21:27 Dose: 100 mg Documented By: Admin: 10/29/21 09:09 Dose: 100 mg Documented By: Admin: 10/28/21 20:37 Dose: 100 mg Documented By: Admin: 10/28/21 10:00 Dose: 100 mg Documented By: Admin: 10/27/21 21:56 Dose: 100 mg Documented By: MEERA Lidocaine (Lidocaine 5% 1 Patch) 1 patch TD HS [facility] Stop: 11/26/21 21:14 Last Admin: 10/31/21 21:06 Dose: 1 patch Documented By: Admin: 10/30/21 20:29 Dose: 1 patch Documented By: Admin: 10/29/21 21:27 Dose: 1 patch Documented By: Admin: 10/28/21 20:38 Dose: 1 patch Documented By: Admin: 10/27/21 21:58 Dose: 1 patch Documented By: MEERA Lorazepam (Lorazepam 0.5 Mg Tab) 0.5 mg PO [facility] Stop: 11/28/21 20:59 Last Admin: 10/31/21 21:09 Dose: 0.5 mg Documented By: Admin: 10/30/21 20:29 Dose: 0.5 mg Documented By: Admin: 10/29/21 19:33 Dose: 0.5 mg Documented By: MEERA Melatonin (Melatonin 3 Mg Tab) 3 mg PO HS PRN PRN Reason: Sleep Stop: 11/28/21 19:22 Last Admin: 10/31/21 21:09 Dose: 3 mg Documented By: Admin: 10/30/21 21:19 Dose: 3 mg Documented By: Admin: 10/29/21 21:27 Dose: 3 mg Documented By: MEERA Metoprolol Succinate (Metoprolol Succ 25mg Ext Rel Tab) 12.5 mg PO QAM [facility] Stop: 11/30/21 08:59 Last Admin: 11/01/21 11:18 Dose: Not Given Documented By: Admin: 10/31/21 09:58 Dose: 12.5 mg Documented By: HERNANDEZ Miscellaneous (Movantik~Order Awaiting Action) 1 each N/A QS [facility] Stop: 11/26/21 21:29 Last Admin: 11/01/21 15:13 Dose: Not Given Documented By: Admin: 11/01/21 09:26 Dose: Not Given Documented By: Admin: 11/01/21 00:01 Dose: Not Given Documented By: Admin: 10/31/21 15:00 Dose: Not Given Documented By: Admin: 10/31/21 07:29 Dose: Not Given Documented By: Admin: 10/30/21 23:55 Dose: Not Given Documented By: Admin: 10/30/21 15:47 Dose: Not Given Documented By: Admin: 10/30/21 08:40 Dose: Not Given Documented By: Admin: 10/30/21 00:17 Dose: Not Given Documented By: Admin: 10/29/21 15:09 Dose: Not Given Documented By: Admin: 10/29/21 09:04 Dose: Not Given Documented By: Admin: 10/29/21 02:23 Dose: Not Given Documented By: Admin: 10/28/21 15:35 Dose: Not Given Documented By: Admin: 10/28/21 09:57 Dose: Not Given Documented By: Admin: 10/28/21 00:04 Dose: Not Given Documented By: Admin: 10/27/21 21:58 Dose: Not Given Documented By: MEERA Miscellaneous (Remove Lidoderm Patch) 1 each N/A QAM [facility] Stop: 11/27/21 08:59 Last Admin: 11/01/21 10:50 Dose: 1 each Documented By: Admin: 10/31/21 09:55 Dose: 1 each Documented By: Admin: 10/30/21 09:12 Dose: 1 each Documented By: Admin: 10/29/21 09:10 Dose: 1 each Documented By: Admin: 10/28/21 10:03 Dose: 1 each Documented By: MATTHEW Nitrofurantoin Macrocrystals (Nitrofurantoin Monohydrate 100 Mg Cap) 100 mg PO BID [facility] Stop: 11/05/21 21:01 Last Admin: 11/01/21 09:21 Dose: 100 mg Documented By: TRUPTI Oxycodone/Acetaminophen (Oxycodone/Acetaminophen 10-325 Tab) 1 tab PO Q8H [facility] Stop: 11/12/21 13:44 Last Admin: 11/01/21 13:00 Dose: 1 tab Documented By: Admin: 11/01/21 06:30 Dose: 1 tab Documented By: Admin: 10/31/21 21:10 Dose: 1 tab Documented By: Admin: 10/31/21 14:57 Dose: 1 tab Documented By: Admin: 10/31/21 06:04 Dose: 1 tab Documented By: Admin: 10/30/21 21:19 Dose: 1 tab Documented By: Admin: 10/30/21 14:09 Dose: 1 tab Documented By: Admin: 10/30/21 05:37 Dose: 1 tab Documented By: Admin: 10/29/21 21:26 Dose: 1 tab Documented By: Admin: 10/29/21 14:02 Dose: Not Given Documented By: REYNA Pantoprazole Sodium (Pantoprazole 40 Mg Tab) 40 mg PO BID [facility] Stop: 11/26/21 20:59 Last Admin: 11/01/21 09:21 Dose: 40 mg Documented By: Admin: 10/31/21 21:08 Dose: 40 mg Documented By: Admin: 10/31/21 09:54 Dose: 40 mg Documented By: Admin: 10/30/21 20:29 Dose: 40 mg Documented By: Admin: 10/30/21 09:11 Dose: 40 mg Documented By: Admin: 10/29/21 21:28 Dose: 40 mg Documented By: Admin: 10/29/21 09:09 Dose: 40 mg Documented By: Admin: 10/28/21 20:36 Dose: 40 mg Documented By: Admin: 10/28/21 10:00 Dose: 40 mg Documented By: Admin: 10/27/21 21:56 Dose: 40 mg Documented By: MEERA Paroxetine HCl (Paroxetine Hcl Controlled Rel 12.5 Mg Tabcr) 37.5 mg PO DAILY [facility] Stop: 11/29/21 08:59 Last Admin: 11/01/21 09:24 Dose: 37.5 mg Documented By: Admin: 10/31/21 09:54 Dose: 37.5 mg Documented By: Admin: 10/30/21 09:11 Dose: 37.5 mg Documented By: REYNA Potassium Chloride (Potassium Chloride Crtab 20 Meq Tabcr) 20 meq PO DAILY@1500 [facility] Stop: 11/27/21 14:59 Last Admin: 10/31/21 14:57 Dose: 20 meq Documented By: Admin: 10/30/21 14:09 Dose: 20 meq Documented By: Admin: 10/29/21 14:33 Dose: 20 meq Documented By: Admin: 10/28/21 15:35 Dose: 20 meq Documented By: MATTHEW Quetiapine Fumarate (Quetiapine Fumarate 25 Mg Tablet) 50 mg PO HS [facility] Stop: 11/26/21 20:59 Last Admin: 10/31/21 21:07 Dose: 50 mg Documented By: Admin: 10/30/21 20:29 Dose: 50 mg Documented By: Admin: 10/29/21 19:33 Dose: 50 mg Documented By: Admin: 10/28/21 20:36 Dose: 50 mg Documented By: Admin: 10/27/21 21:56 Dose: 50 mg Documented By: MEERA Senna/Docusate Sodium (Docusate Sodium/Senna 50/8.6mg Tab) 1 tab PO HS [facility] Stop: 11/27/21 20:59 Last Admin: 10/31/21 21:09 Dose: 1 tab Documented By: Admin: 10/30/21 20:29 Dose: 1 tab Documented By: Admin: 10/29/21 21:26 Dose: 1 tab Documented By: Admin: 10/28/21 20:37 Dose: Not Given Documented By: MEERA Sucralfate (Sucralfate 1 Gm Tab) 1 gm PO AC [facility] Stop: 11/27/21 07:29 Last Admin: 11/01/21 12:59 Dose: 1 gm Documented By: Admin: 11/01/21 09:23 Dose: 1 gm Documented By: Admin: 10/31/21 17:35 Dose: 1 gm Documented By: Admin: 10/31/21 12:39 Dose: 1 gm Documented By: Admin: 10/31/21 09:54 Dose: 1 gm Documented By: Admin: 10/30/21 16:08 Dose: 1 gm Documented By: Admin: 10/30/21 10:48 Dose: 1 gm Documented By: Admin: 10/30/21 06:26 Dose: 1 gm Documented By: Admin: 10/29/21 15:39 Dose: 1 gm Documented By: Admin: 10/29/21 11:21 Dose: 1 gm Documented By: Admin: 10/29/21 06:28 Dose: 1 gm Documented By: Admin: 10/28/21 17:40 Dose: Not Given Documented By: Admin: 10/28/21 12:55 Dose: 1 gm Documented By: Admin: 10/28/21 06:33 Dose: 1 gm Documented By: MEERA Coding Level of Care Code 08405 Inpt Consult Level 3 Diagnoses Dementia F03.91 Dementia behavioral disturbance: with behavioral disturbance Dementia type: unspecified type
[2021-11-01] MEDS: ATORVASTATIN 40 MG TAB PO SCH (16:26)
[2021-11-01] MEDS: POTASSIUM CHLORIDE CRTAB 20 MEQ TABCR PO SCH (16:26)
[2021-11-01] MEDS: LIDOCAINE 5% 1 PATCH TD SCH (21:17)
[2021-11-01] MEDS: MELATONIN 3 MG TAB PO PRN (21:17)
[2021-11-01] MEDS: DOCUSATE SODIUM/SENNA 50/8.6MG TAB PO SCH (21:18)
[2021-11-01] MEDS: LORazepam 0.5 MG TAB PO SCH (21:18)
[2021-11-01] MEDS: QUEtiapine FUMARATE 25 MG TABLET PO SCH (21:19)
--- NOTE | 2021-11-01 21:32 | Hospitalist Progress Note ---
Date of Service November 01, 2021 Assessment & Plan (1) Fall: Plan: -with h/o falls and weakness, needs placement -UTI here may be contributing to worsening confusion Was previously in a NH but then was brought home after a few months at pt's request and her daughter has been taking care of her 28/08 on her own for the last 5 weeks -Patient is currently afebrile, hemodynamically stable, and stable on her baseline 2-3L NC -Multiple mechanical falls at home, trauma workup here is negative, family is requesting placement -Fall precautions ordered -PT/OT consults placed -Pain control with tylenol and lidocaine patch, Percocet scheduled-has a long history of chronic neck and back pain for which she used to receive injections and see pain management -daughter also reports pt takes scheduled percocet but is okay with decreasing dose down every 8 hours awaiting placement/ (2) UTI (urinary tract infection): Plan: Abnormal UA on arrival, urine culture growing ESBL E. coli sensitive to [place] gmentin, ertapenem, meropenem, nitrofurantoin, Zosyn, and Bactrim Did have a low grade fever here on 2nd hospital day but no signs of sepsis, flank pain, etc. so could be considered uncomplicated UTI Started on ceftriaxone on 10/28 and received 3 doses, but then switched to IV ertapenem on 10/30 once cx results returned Discussed antibiotic choice with pharmacy given the ESBL E. coli-despite sensit ivities to Augmentin, Bactrim, pharmacy does recommend either nitrofurantoin or fosfomycin as more is known about the effectiveness of these drugs with ESBL E. coli. -Received 1 more dose of IV ertapenem on 10/31 and then convert to nitrofurantoin twice daily on 11/01 to finish out 7-day course (3) Hypokalemia: Plan: -Likely 2/2 poor oral intake and continue lasix use -No EKG changes noted -replaced and now improved -Continue home KCL while on lasix (4) Depression: Plan: In speaking with the patient's daughter on the phone, she has great concerns about the patient having significant depression. She reports that the patient has become withdrawn even from her favorite family members that she usually speaks to. Is refusing to take phone calls from people. Has been eating very minimally and has lost weight as per daughter. She has also made statements that she wishes her life was over, but is not threatening to harm herself. Daughter is requesting consultation with a therapist or a chemical dependency therapist and is interested in perhaps starting her mother on an additional or different antidepressant. -Remeron would be a good option to stimulate appetite, help with depression, and help with insomnia from which the patient suffers-defer to psychiatry for choice of drug -Consult computer systems manager as per daughter's request -Consult psychiatry at daughter's request (5) Elevated troponin: Plan: -Noted to be 16.6 on ED labs , trended and peaked at 20 and back down the morning after admission -No chest pain or ECG changes, likely due to demand ischemia has a h/o CABG continue ASA her metoprolol is no longer on her list, not sure why stopped since last admission-daughter is not sure either but is okay with restarting it -Restarted Toprol-XL 25 mg p.o. once daily but had SBP<100 so reduced dose to 12.5mg daily continue statin (6) Paroxysmal atrial fibrillation: Plan: -S/P watchman procedure so not on anticoagulation Was in sinus on EKG on admission and remains in a normal rhythm on examination, is not on telemetry Restarted Toprol-XL 12.5 mg once daily (7) Nonsustained ventricular tachycardia: Plan: -has ICD With beta-ever as above (8) CAD (coronary artery disease): Plan: -Continue aspirin and metoprolol, statin h/o CABG (9) GERD (gastroesophageal reflux disease): Plan: -continue protonix (10) Chronic systolic CHF (congestive heart failure): Plan: -continue lasix and KCL -Appears euvolemic on exam (11) Dementia: Plan: -continue Seroquel, lamictal, and ativan at bedtime as per daughter for sleep (12) Chronic respiratory failure with hypoxia and hypercapnia: Plan: -Baseline O2 is 3L NC, currently stable on 3L NC here -Continue home breathing treatments with prn albuterol for wheezing (13) COPD (chronic obstructive pulmonary disease): Plan: -See chronic respiratory failure with hypoxia and hypercapnia (14) Anemia: Plan: Hemoglobin mildly low at 10.5, normocytic Likely anemia of chronic disease B12, folate, and iron studies in 02/2021 all normal No bleeding from anywhere Plan Dispo-stable for discharge, awaiting rehab placement-multiple referrals made by case management, awaiting bed availability Admission and Anticipated Discharge Date Admission Date: October 27, 2021 Subjective 81 yo female is a poor historian. Review of Systems Review of Systems: All systems reviewed & are unremarkable except as noted in HPI & below Physical Exam Constitutional: WD/WN, vitals as above Eyes: PERRL, conjunctivae normal, anicteric sclerae + anicteric sclerae ENMT: external ear and nose normal, oropharynx normal Neck: trachea midline, no thyromegaly Respiratory: normal respiratory effort, lungs clear to auscultation Cardiovascular: RRR, no murmur, no edema Chest (Breasts): Chest: normal inspection of chest Gastrointestinal (Abdomen): normal bowel sounds, soft, nontender, no hepatosplenomegaly Musculoskeletal: Extremities: extremities normal to inspection; no cyanosis and no clubbing Skin: no rashes, warm and dry Neurologic: moves all extremities and awake; no focal motor deficits Psychiatric: Orientation: alert, oriented to person, oriented to place and cooperative Lymphatic: no lymphedema Results & Data Results & Data ([facility]) Vital Signs (Past 12 Hours) Vital Signs Temp Pulse Resp BP BP Pulse Ox O2 Del Method 11/01/21 21:16 36.6 C 84 18 121/73 92 Nasal Cannula 11/01/21 16:17 80 18 117/73 96 Nasal Cannula 11/01/21 09:39 93/62 L O2 Flow Rate 11/01/21 21:16 11/01/21 16:17 2 11/01/21 09:39 PG Care Time/CCT Total # of Minutes Spent Total Time Spent with Patient: Total time spent is greater than 50% in coordination of care (as documented) at patient's floor/unit and/or counseling patient: Coding Level of Care Code 45414 Subseq Hosp Care Lvl 2 Diagnoses Fall W19.XXXA Encounter type: initial encounter UTI (urinary tract infection) N39.0 Hypokalemia E87.6 Depression F32.A Elevated troponin R77.8 Paroxysmal atrial fibrillation I48.0 Nonsustained ventricular tachycardia I47.2 CAD (coronary artery disease) I25.10 Associated angina: unspecified whether angina present Coronary Disease-Associated Artery/Lesion type: unspecified vessel or lesion type [place] vs. transplanted heart: unspecified whether [place] or transplanted heart GERD (gastroesophageal reflux disease) K21.9 Chronic systolic CHF (congestive heart failure) I50.22 Dementia F03.91 Dementia behavioral disturbance: with behavioral disturbance Dementia type: unspecified type Chronic respiratory failure with hypoxia and hypercapnia J96.11; J96.12 COPD (chronic obstructive pulmonary disease) J44.9 Anemia D64.9 Time Spent (min) 25 Comment chart review (1) CAD (coronary artery disease) Associated angina: unspecified whether angina present Coronary Disease- Associated Artery/Lesion type: unspecified vessel or lesion type [place] vs. transplanted heart: unspecified whether [place] or transplanted heart Qualified Code(s): I25.10 - Atherosclerotic heart disease of [place] coronary artery without angina pectoris (2) Dementia Dementia behavioral disturbance: with behavioral disturbance Dementia type: unspecified type Qualified Code(s): F03.91 - Unspecified dementia with behav ioral disturbance (3) Fall Encounter type: initial encounter Qualified Code(s): W19.XXXA - Unspecified fall, initial encounter
[2021-11-02] MEDS: oxyCODONE/ACETAMINOPHEN 10-325 TAB PO SCH ×3 (06:18→21:56)
[2021-11-02] MEDS: lamoTRIgine 100 MG TAB PO SCH ×2 (08:58→21:58)
[2021-11-02] MEDS: PANTOprazole 40 MG TAB PO SCH ×2 (08:58→21:57)
[2021-11-02] MEDS: NITROFURANTOIN MONOHYDRATE 100 MG CAP PO SCH ×2 (08:58→21:58)
[2021-11-02] MEDS: FLUTICASONE/VILANTEROL 100/25MCG 14 PUFFS/INHALER INH SCH (08:59)
[2021-11-02] MEDS: PARoxetine HCl CONTROLLED REL 12.5 MG TABCR PO SCH (08:59)
[2021-11-02] MEDS: SUCRALFATE 1 GM TAB PO SCH ×3 (09:00→17:28)
[2021-11-02] MEDS: ASPIRIN 81 MG ECTAB PO SCH (09:00)
[2021-11-02] MEDS: METOPROLOL SUCC 25MG EXT REL TAB PO SCH (09:01)
[2021-11-02] MEDS: FUROSEMIDE 40 MG TAB PO SCH (09:04)
[2021-11-02] MEDS: ATORVASTATIN 40 MG TAB PO SCH (13:38)
[2021-11-02] MEDS: POTASSIUM CHLORIDE CRTAB 20 MEQ TABCR PO SCH (13:39)
[2021-11-02] MEDS ORDERED: POLYETHYLENE (MIRALAX) 17 GM PACK PO PRN (19:16)
[2021-11-02] MEDS: DOCUSATE SODIUM/SENNA 50/8.6MG TAB PO SCH (21:55)
[2021-11-02] MEDS: LORazepam 0.5 MG TAB PO SCH (21:56)
[2021-11-02] MEDS: MELATONIN 3 MG TAB PO PRN (21:56)
[2021-11-02] MEDS: QUEtiapine FUMARATE 25 MG TABLET PO SCH (21:57)
[2021-11-02] MEDS: LIDOCAINE 5% 1 PATCH TD SCH (21:58)
--- NOTE | 2021-11-02 23:48 | Hospitalist Progress Note ---
Date of Service November 02, 2021 Assessment & Plan (1) Fall: Plan: -with h/o falls and weakness, needs placement -UTI here may be contributing to worsening confusion Was previously in a NH but then was brought home after a few months at pt's request and her daughter has been taking care of her 28/08 on her own for the last 5 weeks -Patient is currently afebrile, hemodynamically stable, and stable on her baseline 2-3L NC -Multiple mechanical falls at home, trauma workup here is negative, family is requesting placement -Fall precautions ordered -PT/OT consults placed -Pain control with tylenol and lidocaine patch, Percocet scheduled-has a long history of chronic neck and back pain for which she used to receive injections and see pain management -daughter also reports pt takes scheduled percocet but is okay with decreasing dose down every 8 hours awaiting placement (2) UTI (urinary tract infection): Plan: Abnormal UA on arrival, urine culture growing ESBL E. coli sensitive to Aug mentin, ertapenem, meropenem, nitrofurantoin, Zosyn, and Bactrim Did have a low grade fever here on 2nd hospital day but no signs of sepsis, flank pain, etc. so could be considered uncomplicated UTI Started on ceftriaxone on 10/28 and received 3 doses, but then switched to IV ertapenem on 10/30 once cx results returned Discussed antibiotic choice with pharmacy given the ESBL E. coli-despite sensiti vities to Augmentin, Bactrim, pharmacy does recommend either nitrofurantoin or fosfomycin as more is known about the effectiveness of these drugs with ESBL E. coli. -Received 1 more dose of IV ertapenem on 10/31 and then convert to nitrofurantoin twice daily on 11/01 to finish out 7-day course (3) Hypokalemia: Plan: -Likely 2/2 poor oral intake and continue lasix use -No EKG changes noted -replaced and now improved -Continue home KCL while on lasix (4) Depression: Plan: In speaking with the patient's daughter on the phone, she has great concerns about the patient having significant depression. She reports that the patient has become withdrawn even from her favorite family members that she usually speaks to. Is refusing to take phone calls from people. Has been eating very minimally and has lost weight as per daughter. She has also made statements that she wishes her life was over, but is not threatening to harm herself. Daughter is requesting consultation with a therapist or a zyglo technician and is interested in perhaps starting her mother on an additional or different antidepressant. -Remeron would be a good option to stimulate appetite, help with depression, and help with insomnia from which the patient suffers-defer to psychiatry for choice of drug -Consult principal associate as per daughter's request -Consult psychiatry at daughter's request (5) Elevated troponin: Plan: -Noted to be 16.6 on ED labs , trended and peaked at 20 and back down the morning after admission -No chest pain or ECG changes, likely due to demand ischemia has a h/o CABG continue ASA her metoprolol is no longer on her list, not sure why stopped since last admission-daughter is not sure either but is okay with restarting it -Restarted Toprol-XL 25 mg p.o. once daily but had SBP<100 so reduced dose to 12.5mg daily continue statin (6) Paroxysmal atrial fibrillation: Plan: -S/P watchman procedure so not on anticoagulation Was in sinus on EKG on admission and remains in a normal rhythm on examination, is not on telemetry Restarted Toprol-XL 12.5 mg once daily (7) Nonsustained ventricular tachycardia: Plan: -has ICD With beta-ever as above (8) CAD (coronary artery disease): Plan: -Continue aspirin and metoprolol, statin h/o CABG (9) GERD (gastroesophageal reflux disease): Plan: -continue protonix (10) Chronic systolic CHF (congestive heart failure): Plan: -continue lasix and KCL -Appears euvolemic on exam (11) Dementia: Plan: -continue Seroquel, lamictal, and ativan at bedtime as per daughter for sleep (12) Chronic respiratory failure with hypoxia and hypercapnia: Plan: -Baseline O2 is 3L NC, currently stable on 3L NC here -Continue home breathing treatments with prn albuterol for wheezing (13) COPD (chronic obstructive pulmonary disease): Plan: -See chronic respiratory failure with hypoxia and hypercapnia (14) Anemia: Plan: Hemoglobin mildly low at 10.5, normocytic Likely anemia of chronic disease B12, folate, and iron studies in 02/2021 all normal No bleeding from anywhere Plan Dispo-stable for discharge, awaiting rehab placement-multiple referrals made by case management, awaiting bed availability Admission and Anticipated Discharge Date Admission Date: October 27, 2021 Subjective 81 yo female is a poor historian, pleasantly demented. Review of Systems Review of Systems: Unobtainable due to cognitive status Physical Exam Constitutional: WD/WN, vitals as above Eyes: PERRL, conjunctivae normal, anicteric sclerae + anicteric sclerae ENMT: external ear and nose normal, oropharynx normal Neck: trachea midline, no thyromegaly Respiratory: normal respiratory effort, lungs clear to auscultation Cardiovascular: RRR, no murmur, no edema Chest (Breasts): Chest: normal inspection of chest Gastrointestinal (Abdomen): normal bowel sounds, soft, nontender, no hepatosplenomegaly Musculoskeletal: Extremities: extremities normal to inspection; no cyanosis and no clubbing Skin: no rashes, warm and dry Neurologic: moves all extremities and awake; no focal motor deficits Psychiatric: Orientation: alert, oriented to person, oriented to place and cooperative Lymphatic: no lymphedema Results & Data Results & Data ([facility]) Vital Signs (Past 12 Hours) Vital Signs Temp Pulse Resp BP BP Pulse Ox O2 Del Method 11/02/21 21:00 36.8 C 86 18 135/85 92 Nasal Cannula 11/02/21 15:33 36.3 C L 11/02/21 15:29 86 18 107/72 95 Nasal Cannula O2 Flow Rate 11/02/21 21:00 11/02/21 15:33 11/02/21 15:29 3 PG Care Time/CCT Total # of Minutes Spent Total Time Spent with Patient: Total time spent is greater than 50% in coordination of care (as documented) at patient's floor/unit and/or counseling patient: Coding Level of Care Code 47696 Subseq Hosp Care Lvl 2 Diagnoses Fall W19.XXXA Encounter type: initial encounter UTI (urinary tract infection) N39.0 Hypokalemia E87.6 Depression F32.A Elevated troponin R77.8 Paroxysmal atrial fibrillation I48.0 Nonsustained ventricular tachycardia I47.2 CAD (coronary artery disease) I25.10 Associated angina: unspecified whether angina present Coronary Disease-Associated Artery/Lesion type: unspecified vessel or lesion type [place] vs. transplanted heart: unspecified whether [place] or transplanted heart GERD (gastroesophageal reflux disease) K21.9 Chronic systolic CHF (congestive heart failure) I50.22 Dementia F03.91 Dementia behavioral disturbance: with behavioral disturbance Dementia type: unspecified type Chronic respiratory failure with hypoxia and hypercapnia J96.11; J96.12 COPD (chronic obstructive pulmonary disease) J44.9 Anemia D64.9 (1) CAD (coronary artery disease) Associated angina: unspecified whether angina present Coronary Disease- Associated Artery/Lesion type: unspecified vessel or lesion type [place] vs. transplanted heart: unspecified whether [place] or transplanted heart Qualified Code(s): I25.10 - Atherosclerotic heart disease of [place] coronary artery without angina pectoris (2) Dementia Dementia behavioral disturbance: with behavioral disturbance Dementia type: unspecified type Qualified Code(s): F03.91 - Unspecified dementia with behavioral disturbance (3) Fall Encounter type: initial encounter Qualified Code(s): W19.XXXA - Unspecified fall, initial encounter
[2021-11-03] MEDS: oxyCODONE/ACETAMINOPHEN 10-325 TAB PO SCH ×3 (05:38→23:00)
[2021-11-03] MEDS: ASPIRIN 81 MG ECTAB PO SCH (09:40)
[2021-11-03] MEDS: SUCRALFATE 1 GM TAB PO SCH ×3 (09:40→16:04)
[2021-11-03] MEDS: NITROFURANTOIN MONOHYDRATE 100 MG CAP PO SCH ×2 (09:47→21:04)
[2021-11-03] MEDS: lamoTRIgine 100 MG TAB PO SCH ×2 (09:47→21:01)
[2021-11-03] MEDS: METOPROLOL SUCC 25MG EXT REL TAB PO SCH (09:47)
[2021-11-03] MEDS: FUROSEMIDE 40 MG TAB PO SCH (09:47)
[2021-11-03] MEDS: PARoxetine HCl CONTROLLED REL 12.5 MG TABCR PO SCH (09:48)
[2021-11-03] MEDS: PANTOprazole 40 MG TAB PO SCH ×2 (09:48→21:05)
[2021-11-03] MEDS: FLUTICASONE/VILANTEROL 100/25MCG 14 PUFFS/INHALER INH SCH (11:41)
[2021-11-03] MEDS: ACETAMINOPHEN 325 MG TAB PO PRN (11:42)
--- NOTE | 2021-11-03 13:10 | Hospitalist Progress Note ---
Date of Service November 03, 2021 Assessment & Plan (1) Fall: Plan: -with h/o falls and weakness, needs placement -UTI here may be contributing to worsening confusion -Was previously in a NH but then was brought home after a few months at pt's request and her daughter has been taking care of her 28/08 on her own for the last 5 weeks -Patient is currently afebrile, hemodynamically stable, and stable on her baseline 2-3L NC -Multiple mechanical falls at home, trauma workup here is negative, family is requesting placement -Fall precautions ordered -PT/OT consults placed -Pain control with tylenol and lidocaine patch, Percocet scheduled-has a long history of chronic neck and back pain for which she used to receive injections and see pain management -daughter also reports pt takes scheduled percocet but is okay with decreasing dose down every 8 hours awaiting placement (2) UTI (urinary tract infection): Plan: Abnormal UA on arrival, urine culture growing ESBL E. coli sensitive to Aug mentin, ertapenem, meropenem, nitrofurantoin, Zosyn, and Bactrim Did have a low grade fever here on 2nd hospital day but no signs of sepsis, flank pain, etc. so could be considered uncomplicated UTI Started on ceftriaxone on 10/28 and received 3 doses, but then switched to IV ertapenem on 10/30 once cx results returned Discussed antibiotic choice with pharmacy given the ESBL E. coli-despite sensiti vities to Augmentin, Bactrim, pharmacy does recommend either nitrofurantoin or fosfomycin as more is known about the effectiveness of these drugs with ESBL E. coli. -Received 1 more dose of IV ertapenem on 10/31 and then convert to nitrofurantoin twice daily on 11/01 to finish out 7-day course (3) Hypokalemia: Plan: -Likely 2/2 poor oral intake and continue lasix use -No EKG changes noted -replaced and now improved -Continue home KCl while on lasix (4) Depression: Plan: In speaking with the patient's daughter on the phone, she has great concerns about the patient having significant depression. She reports that the patient has become withdrawn even from her favorite family members that she usually speaks to. Is refusing to take phone calls from people. Has been eating very minimally and has lost weight as per daughter. She has also made statements that she wishes her life was over, but is not threatening to harm herself. Daughter is requesting consultation with a therapist or a supervisor detasseling crew and is interested in perhaps starting her mother on an additional or different antidepressant. -Remeron would be a good option to stimulate appetite, help with depression, and help with insomnia from which the patient suffers-defer to psychiatry for choice of drug -Consult artillery specialist as per daughter's request -Consult psychiatry at daughter's request--reviewed consult, noted some recommendations but no changes made -daughter is adamantly requesting that the paxil be increased as she feels something needs adjusted to improve her mood/depression -appreciating her concern and bc this is a minimal increase and one that was mentioned by psychiatry, will increase her paxil to 50mg daily (5) Elevated troponin: Plan: -Noted to be 16.6 on ED labs , trended and peaked at 20 and back down the morning after admission -No chest pain or ECG changes, likely due to demand ischemia has a h/o CABG continue ASA her metoprolol is no longer on her list, not sure why stopped since last admissi on-daughter is not sure either but is okay with restarting it -Restarted Toprol-XL 25 mg p.o. once daily but had SBP<100 so reduced dose to 12.5mg daily continue statin (6) Paroxysmal atrial fibrillation: Plan: -S/P watchman procedure so not on anticoagulation Was in sinus on EKG on admission and remains in a normal rhythm on examination, is not on telemetry Restarted Toprol-XL 12.5 mg once daily (7) Nonsustained ventricular tachycardia: Plan: -has ICD -With beta-ever as above (8) CAD (coronary artery disease): Plan: -Continue aspirin and metoprolol, statin h/o CABG (9) GERD (gastroesophageal reflux disease): Plan: -continue protonix (10) Chronic systolic CHF (congestive heart failure): Plan: -continue lasix and KCL -Appears euvolemic on exam (11) Dementia: Plan: -continue Seroquel, lamictal, and ativan at bedtime as per daughter for sleep (12) Chronic respiratory failure with hypoxia and hypercapnia: Plan: -Baseline O2 is 3L NC, currently stable on 3L NC here -Continue home breathing treatments with prn albuterol for wheezing (13) COPD (chronic obstructive pulmonary disease): Plan: -See chronic respiratory failure with hypoxia and hypercapnia (14) Anemia: Plan: Hemoglobin mildly low at 10.5, normocytic Likely anemia of chronic disease B12, folate, and iron studies in 02/2021 all normal No bleeding from anywhere Plan Dispo-stable for discharge, awaiting placement in SNF. Daughter does not feel that she is able to provide 24-7 care for her at home. Case management has faxed referrals to multiple facilities and thus far no facility has accepted due to lack of beds. Plan d/w Dr. Garcia. Admission and Anticipated Discharge Date Admission Date: October 27, 2021 Subjective Patient seen on daily rounds, reports some pain in her back and neck but otherwise remains pleasantly confused. Apparently daughter is requesting more psychiatric medications due to her delirium as reported this morning by patient's RN. Review of Systems Review of Systems: Endorses back and neck pain but accurate ROS is limited given her dementia Physical Exam Physical Exam: GENERAL: 81 yo Well-developed, well-nourished WF. NAD. LUNGS: Clear to auscultation bilaterally. No W/R/R. CARDIOVASCULAR: Regular rate and rhythm. ABDOMEN: Soft, non-tender and non-distended. BS normoactive x 4 quad. EXTREMITIES: No edema. Non-tender. Peripheral pulses +2/4. NEUROLOGIC: A&O x1 PSYCHIATRIC: Cooperative. Appropriate mood and affect. SKIN: Warm, dry, intact. No rashes or lesions. Results & Data Results & Data ([facility]) Vital Signs (Past 12 Hours) Vital Signs Temp Pulse Resp BP Pulse Ox O2 Del Method O2 Flow Rate 11/03/21 07:29 36.3 C L 72 18 111/66 98 Nasal Cannula 2 PG Care Time/CCT Total # of Minutes Spent Total Time Spent with Patient: Total time spent is greater than 50% in coordination of care (as documented) at patient's floor/unit and/or counseling patient: Coding Level of Care Code 78939 Subseq Hosp Care Lvl 2 Diagnoses Fall W19.XXXA Encounter type: initial encounter UTI (urinary tract infection) N39.0 Hypokalemia E87.6 Depression F32.A Elevated troponin R77.8 Paroxysmal atrial fibrillation I48.0 Nonsustained ventricular tachycardia I47.2 CAD (coronary artery disease) I25.10 Associated angina: unspecified whether angina present Coronary Disease-Associated Artery/Lesion type: unspecified vessel or lesion type [place] vs. transplanted heart: unspecified whether [place] or transplanted heart GERD (gastroesophageal reflux disease) K21.9 Chronic systolic CHF (congestive heart failure) I50.22 Dementia F03.91 Dementia behavioral disturbance: with behavioral disturbance Dementia type: unspecified type Chronic respiratory failure with hypoxia and hypercapnia J96.11; J96.12 COPD (chronic obstructive pulmonary disease) J44.9 Anemia D64.9 (1) Fall Encounter type: initial encounter Qualified Code(s): W19.XXXA - Unspecified fall, initial encounter (2) CAD (coronary artery disease) Associated angina: unspecified whether angina present Coronary Disease- Associated Artery/Lesion type: unspecified vessel or lesion type [place] vs. transplanted heart: unspecified whether [place] or transplanted heart Qualified Code(s): I25.10 - Atherosclerotic heart disease of [place] coronary artery without angina pectoris (3) Dementia Dementia behavioral disturbance: with behavioral disturbance Dementia type: unspecified type Qualified Code(s): F03.91 - Unspecified dementia with behavioral disturbance
[2021-11-03] MEDS: POTASSIUM CHLORIDE CRTAB 20 MEQ TABCR PO SCH (16:04)
[2021-11-03] MEDS: ATORVASTATIN 40 MG TAB PO SCH (16:04)
[2021-11-03] MEDS: LORazepam 0.5 MG TAB PO SCH (21:01)
[2021-11-03] MEDS: LIDOCAINE 5% 1 PATCH TD SCH (21:02)
[2021-11-03] MEDS: DOCUSATE SODIUM/SENNA 50/8.6MG TAB PO SCH (21:04)
[2021-11-03] MEDS: QUEtiapine FUMARATE 25 MG TABLET PO SCH (21:05)
[2021-11-04] MEDS: oxyCODONE/ACETAMINOPHEN 10-325 TAB PO SCH ×3 (06:54→22:36)
[2021-11-04] MEDS: SUCRALFATE 1 GM TAB PO SCH ×3 (09:13→17:25)
[2021-11-04] MEDS: PARoxetine HCl CONTROLLED REL 12.5 MG TABCR PO SCH (09:13)
[2021-11-04] MEDS: ASPIRIN 81 MG ECTAB PO SCH (09:14)
[2021-11-04] MEDS: PANTOprazole 40 MG TAB PO SCH ×2 (09:14→20:30)
[2021-11-04] MEDS: METOPROLOL SUCC 25MG EXT REL TAB PO SCH (09:14)
[2021-11-04] MEDS: NITROFURANTOIN MONOHYDRATE 100 MG CAP PO SCH ×2 (09:14→20:31)
[2021-11-04] MEDS: FUROSEMIDE 40 MG TAB PO SCH (09:14)
[2021-11-04] MEDS: lamoTRIgine 100 MG TAB PO SCH ×2 (09:15→20:30)
[2021-11-04] MEDS: FLUTICASONE/VILANTEROL 100/25MCG 14 PUFFS/INHALER INH SCH (09:15)
[2021-11-04 09:58] LABS: BUN Creatinine Ratio 18.7 (10-20); Calcium 9.6 mg/dl (8.5-10.1); Est GFR (African American) 85.4 ml/min; Est GFR (Non-African American) 73.7 ml/min; Potassium 3.9 mmol/L (3.5-5.1)
[2021-11-04] MEDS: POTASSIUM CHLORIDE CRTAB 20 MEQ TABCR PO SCH (14:34)
[2021-11-04] MEDS: ATORVASTATIN 40 MG TAB PO SCH (14:34)
[2021-11-04] MEDS ORDERED: Nursing to Pharmacy Communication SCH (16:00)
--- NOTE | 2021-11-04 18:40 | Hospitalist Progress Note ---
Date of Service November 04, 2021 Assessment & Plan (1) Fall: Plan: -with h/o falls and weakness, needs placement -UTI here may be contributing to worsening confusion, but I suspect a lot of this is just baseline dementia -Was previously in a NH but then was brought home after a few months at pt's request and her daughter has been taking care of her 24/7 on her own for the last 5 weeks -Patient is currently afebrile, hemodynamically stable, and stable on her base line 2-3L NC -Multiple mechanical falls at home, trauma workup here is negative, family is requesting placement -Fall precautions ordered -PT/OT consults placed -Pain control with tylenol and lidocaine patch, Percocet scheduled-has a long history of chronic neck and back pain for which she used to receive injections and see pain management -daughter also reports pt takes scheduled percocet but is okay with decreasing dose down every 8 hours awaiting placement Admission and Anticipated Discharge Date Admission Date: October 27, 2021 Subjective Only complaint today is her back painwhich she notes is chronic (in which I remember having been chronic from prior care for her). Sitting in bed with a baby doll, awaiting placement, no acute issues noted. Physical Exam Physical Exam: In general she is awake and alert pleasant no distress does seem to be disoriented. HEENT normocephalic atraumatic mucous membranes moist. Breathing unlabored no accessory muscle use good effort. Skin shows no rashes no pallor or icterus. Results & Data Results & Data ([facility]) Vital Signs (Past 12 Hours) Vital Signs Temp Pulse Resp BP Pulse Ox O2 Del Method O2 Flow Rate 11/04/21 14:22 98.4 F 73 16 108/69 97 Nasal Cannula 2 11/04/21 12:19 Nasal Cannula 2 11/04/21 07:52 98.2 F 73 18 91/57 L 99 Nasal Cannula 2 PG Care Time/CCT Total # of Minutes Spent Total Time Spent with Patient: Total time spent is greater than 50% in coordination of care (as documented) at patient's floor/unit and/or counseling patient: Coding Level of Care Code 62643 Subseq Hosp Care Lvl 1 Diagnoses Fall W19.XXXA Encounter type: initial encounter (1) Fall Encounter type: initial encounter Qualified Code(s): W19.XXXA - Unspecified f all, initial encounter
[2021-11-04] MEDS: DOCUSATE SODIUM/SENNA 50/8.6MG TAB PO SCH (20:29)
[2021-11-04] MEDS: LIDOCAINE 5% 1 PATCH TD SCH (20:31)
[2021-11-04] MEDS: LORazepam 0.5 MG TAB PO SCH (20:31)
[2021-11-04] MEDS: QUEtiapine FUMARATE 25 MG TABLET PO SCH (20:31)
[2021-11-05] MEDS: oxyCODONE/ACETAMINOPHEN 10-325 TAB PO SCH ×3 (06:10→22:48)
[2021-11-05] MEDS: SUCRALFATE 1 GM TAB PO SCH ×3 (07:23→16:27)
[2021-11-05] MEDS: FUROSEMIDE 40 MG TAB PO SCH (08:33)
[2021-11-05] MEDS: ASPIRIN 81 MG ECTAB PO SCH (08:33)
[2021-11-05] MEDS: lamoTRIgine 100 MG TAB PO SCH ×2 (08:34→22:49)
[2021-11-05] MEDS: METOPROLOL SUCC 25MG EXT REL TAB PO SCH (08:34)
[2021-11-05] MEDS: NITROFURANTOIN MONOHYDRATE 100 MG CAP PO SCH ×2 (08:35→22:53)
[2021-11-05] MEDS: PANTOprazole 40 MG TAB PO SCH ×2 (08:35→22:53)
[2021-11-05] MEDS: PARoxetine HCl CONTROLLED REL 12.5 MG TABCR PO SCH (08:36)
[2021-11-05] MEDS: FLUTICASONE/VILANTEROL 100/25MCG 14 PUFFS/INHALER INH SCH (09:00)
[2021-11-05] MEDS: POTASSIUM CHLORIDE CRTAB 20 MEQ TABCR PO SCH (15:00)
[2021-11-05] MEDS: ATORVASTATIN 40 MG TAB PO SCH (15:00)
--- NOTE | 2021-11-05 17:51 | Hospitalist Progress Note ---
Date of Service November 05, 2021 Assessment & Plan (1) Fall: Plan: -with h/o falls and weakness, needs placement -UTI here may be contributing to worsening confusion, but I suspect a lot of this is just baseline dementia -Was previously in a NH but then was brought home after a few months at pt's request and her daughter has been taking care of her 24/7 on her own for the last 5 weeks -Patient is currently afebrile, hemodynamically stable, and stable on her baseline 2-3L NC -Multiple mechanical falls at home, trauma workup here is negative, family is requesting placement -Fall precautions ordered -PT/OT consults placed - for SNF -Pain control with tylenol and lidocaine patch, Percocet scheduled-has a long history of chronic neck and back pain for which she used to receive injections and see pain management -in conversation w prior team members, daughter also reports pt takes scheduled percocet but is okay with decreasing dose down every 8 hours awaiting placement Admission and Anticipated Discharge Date Admission Date: October 27, 2021 Subjective sitting up in bed. only problem nursing notes is a little congestion - thinks she would really only need cough drops. Physical Exam Physical Exam: sitting up in bed, nad heent nc at mmm breathing unlabored no accessory muscles good effort no pallor Results & Data Results & Data ([facility]) Vital Signs (Past 12 Hours) Vital Signs Temp Pulse Resp BP BP Pulse Ox O2 Del Method 11/05/21 16:19 97.9 F 80 18 117/70 94 Nasal Cannula 11/05/21 07:35 97.9 F 87 20 118/75 91 Nasal Cannula O2 Flow Rate 11/05/21 16:19 2 11/05/21 07:35 2 PG Care Time/CCT Total # of Minutes Spent Total Time Spent with Patient: Total time spent is greater than 50% in coordination of care (as documented) at patient's floor/unit and/or counseling patient: Coding Level of Care Code 07187 Subseq Hosp Care Lvl 1 Diagnoses Fall W19.XXXA Encounter type: initial encounter (1) Fall Encounter type: initial encounter Qualified Code(s): W19.XXXA - Unspecified fall, initial encounter
[2021-11-05] MEDS ORDERED: COUGH DROP (SUGAR FREE) LOZ 24 LOZ/1 BOX BUCCAL PRN (18:19)
[2021-11-05] MEDS: DOCUSATE SODIUM/SENNA 50/8.6MG TAB PO SCH (22:42)
[2021-11-05] MEDS: LORazepam 0.5 MG TAB PO SCH (22:43)
[2021-11-05] MEDS: LIDOCAINE 5% 1 PATCH TD SCH (22:52)
[2021-11-05] MEDS: QUEtiapine FUMARATE 25 MG TABLET PO SCH (22:53)
[2021-11-06 06:54] LABS: Calcium 9.1 mg/dl (8.5-10.1); Creatinine Clr Calc Pharmacy 42.7 ml/min; Est GFR (African American) 80.2 ml/min; Est GFR (Non-African American) 69.2 ml/min; Potassium 3.7 mmol/L (3.5-5.1)
[2021-11-06] MEDS: oxyCODONE/ACETAMINOPHEN 10-325 TAB PO SCH ×3 (07:19→22:21)
[2021-11-06] MEDS: FLUTICASONE/VILANTEROL 100/25MCG 14 PUFFS/INHALER INH SCH (07:52)
[2021-11-06] MEDS: ASPIRIN 81 MG ECTAB PO SCH (07:52)
[2021-11-06] MEDS: SUCRALFATE 1 GM TAB PO SCH ×3 (07:52→17:16)
[2021-11-06] MEDS: PARoxetine HCl CONTROLLED REL 12.5 MG TABCR PO SCH (07:52)
[2021-11-06] MEDS: lamoTRIgine 100 MG TAB PO SCH ×2 (07:53→20:44)
[2021-11-06] MEDS: PANTOprazole 40 MG TAB PO SCH ×2 (07:53→20:45)
[2021-11-06] MEDS: FUROSEMIDE 40 MG TAB PO SCH (07:53)
[2021-11-06] MEDS: METOPROLOL SUCC 25MG EXT REL TAB PO SCH (07:53)
[2021-11-06] MEDS: POTASSIUM CHLORIDE CRTAB 20 MEQ TABCR PO SCH (14:31)
[2021-11-06] MEDS: ATORVASTATIN 40 MG TAB PO SCH (14:31)
--- NOTE | 2021-11-06 19:28 | Hospitalist Progress Note ---
Date of Service November 06, 2021 Assessment & Plan (1) Fall: Plan: -with h/o falls and weakness, needs placement -UTI here may be contributing to worsening confusion, but I suspect a lot of this is just baseline dementia -Was previously in a NH but then was brought home after a few months at pt's request and her daughter has been taking care of her 24/7 on her own for the last 5 weeks -Patient is currently afebrile, hemodynamically stable, and stable on her baseline 2-3L NC -Multiple mechanical falls at home, trauma workup here is negative, family is requesting placement -Fall precautions ordered -PT/OT consults placed - for SNF when bed available/insurance approval/etc. -Pain control with tylenol and lidocaine patch, Percocet scheduled-has a long history of chronic neck and back pain for which she used to receive injections and see pain management -in conversation w prior team members, daughter also reports pt takes scheduled percocet but is okay with decreasing dose down every 8 hours awaiting placement Admission and Anticipated Discharge Date Admission Date: October 27, 2021 Subjective No complaints. Sitting in bed. Wonders when she can get out of here. Discussed plan for placement, case management working with her daughtershe notes that her daughter is very busy and does not have time for her. Physical Exam Physical Exam: gen awake pleasantly confused nad heent nc at mmm breathing unlabored no accessory muscles good effort skin no rashes no pallor or icterus neuro no lateralizing focal findings Results & Data Results & Data ([facility]) Vital Signs (Past 12 Hours) Vital Signs Temp Pulse Resp BP BP Pulse Ox O2 Del Method 11/06/21 16:00 97.5 F L 69 18 118/69 98 Nasal Cannula 11/06/21 07:36 Nasal Cannula 11/06/21 07:40 97.5 F L 69 18 106/70 98 O2 Flow Rate 11/06/21 16:00 2 11/06/21 07:36 2 11/06/21 07:40 PG Care Time/CCT Total # of Minutes Spent Total Time Spent with Patient: Total time spent is greater than 50% in coordination of care (as documented) at patient's floor/unit and/or counseling patient: Coding Level of Care Code 54941 Subseq Hosp Care Lvl 1 Diagnoses Fall W19.XXXA Encounter type: initial encounter (1) Fall Encounter type: initial encounter Qualified Code(s): W19.XXXA - Unspecified fall, initial encounter
[2021-11-06] MEDS: LORazepam 0.5 MG TAB PO SCH (20:44)
[2021-11-06] MEDS: DOCUSATE SODIUM/SENNA 50/8.6MG TAB PO SCH (20:44)
[2021-11-06] MEDS: LIDOCAINE 5% 1 PATCH TD SCH (20:44)
[2021-11-06] MEDS: QUEtiapine FUMARATE 25 MG TABLET PO SCH (20:45)
[2021-11-06] MEDS: MELATONIN 3 MG TAB PO PRN (20:45)
[2021-11-06] MEDS ORDERED: PHENAZOPYRIDINE HCL 100 MG TAB PO PRN (22:16)
[2021-11-07] MEDS: PARoxetine HCl CONTROLLED REL 12.5 MG TABCR PO SCH (09:06)
[2021-11-07] MEDS: SUCRALFATE 1 GM TAB PO SCH ×3 (09:07→16:58)
[2021-11-07] MEDS: FLUTICASONE/VILANTEROL 100/25MCG 14 PUFFS/INHALER INH SCH (09:07)
[2021-11-07] MEDS: ASPIRIN 81 MG ECTAB PO SCH (09:07)
[2021-11-07] MEDS: FUROSEMIDE 40 MG TAB PO SCH (09:07)
[2021-11-07] MEDS: lamoTRIgine 100 MG TAB PO SCH ×2 (09:07→19:49)
[2021-11-07] MEDS: PANTOprazole 40 MG TAB PO SCH ×2 (09:07→20:22)
[2021-11-07] MEDS: METOPROLOL SUCC 25MG EXT REL TAB PO SCH (09:07)
[2021-11-07] MEDS: oxyCODONE/ACETAMINOPHEN 10-325 TAB PO SCH ×3 (10:09→23:28)
[2021-11-07] MEDS: ATORVASTATIN 40 MG TAB PO SCH (14:04)
[2021-11-07] MEDS: POTASSIUM CHLORIDE CRTAB 20 MEQ TABCR PO SCH (14:05)
[2021-11-07 16:14] LABS: Appearance Urine Clear (Clear); Bacteria Urine Automated Negative (Negative); Blood Urine Negative (Negative); Color Urine Orange; Glucose Urine UA Negative (Negative); Ketones Urine Negative (Negative); Leukocyte Esterase Urine 1+ (Negative); Nitrite Urine Positive (Negative); Protein Urine Negative (Negative); Specific Gravity Urine 1.021 (1.000-1.030); Urobilinogen Urine Negative (Negative)
[2021-11-07 16:15] LABS: Bilirubin Urine 1+ (Negative)
[2021-11-07] MEDS: DOCUSATE SODIUM/SENNA 50/8.6MG TAB PO SCH (19:44)
[2021-11-07] MEDS: LIDOCAINE 5% 1 PATCH TD SCH (20:19)
[2021-11-07] MEDS: MELATONIN 3 MG TAB PO PRN (20:22)
[2021-11-07] MEDS: LORazepam 0.5 MG TAB PO SCH (20:22)
[2021-11-07] MEDS: QUEtiapine FUMARATE 25 MG TABLET PO SCH (20:23)
[2021-11-08] MEDS: oxyCODONE/ACETAMINOPHEN 10-325 TAB PO SCH ×3 (06:15→21:08)
[2021-11-08] MEDS: PANTOprazole 40 MG TAB PO SCH ×2 (08:35→21:08)
[2021-11-08] MEDS: ASPIRIN 81 MG ECTAB PO SCH (08:36)
[2021-11-08] MEDS: PARoxetine HCl CONTROLLED REL 12.5 MG TABCR PO SCH (08:36)
[2021-11-08] MEDS: lamoTRIgine 100 MG TAB PO SCH ×2 (08:36→21:08)
[2021-11-08] MEDS: SUCRALFATE 1 GM TAB PO SCH ×3 (08:36→16:53)
[2021-11-08] MEDS: FLUTICASONE/VILANTEROL 100/25MCG 14 PUFFS/INHALER INH SCH (08:37)
[2021-11-08] MEDS: METOPROLOL SUCC 25MG EXT REL TAB PO SCH (09:03)
[2021-11-08] MEDS: FUROSEMIDE 40 MG TAB PO SCH (09:04)
--- NOTE | 2021-11-08 11:53 | Hospitalist Progress Note ---
Date of Service November 08, 2021 Assessment & Plan (1) Fall: Plan: -with h/o falls and weakness, needs placement -UTI here may be contributing to worsening confusion -Was previously in a NH but then was brought home after a few months at pt's request and her daughter has been taking care of her 28/08 on her own for the last 5 weeks -Patient is currently afebrile, hemodynamically stable, and stable on her baseline 2-3L NC -Multiple mechanical falls at home, trauma workup here is negative, family is requesting placement -Fall precautions ordered -PT/OT consults placed - recommending SNF -Pain control with tylenol and lidocaine patch, Percocet scheduled-has a long history of chronic neck and back pain for which she used to receive injections and see pain management -daughter also reports pt takes scheduled percocet but is okay with decreasing dose down every 8 hours awaiting placement (2) UTI (urinary tract infection): Plan: Abnormal UA on arrival, urine culture growing ESBL E. coli sensitive to Augmentin, ertapenem, meropenem, nitrofurantoin, Zosyn, and Bactrim Did have a low grade fever here on 2nd hospital day but no signs of sepsis, flank pain, etc. so could be considered uncomplicated UTI Started on ceftriaxone on 10/28 and received 3 doses, but then switched to IV ertapenem on 10/30 once cx results returned Discussed antibiotic choice with pharmacy given the ESBL E. coli-despite sensitivities to Augmentin, Bactrim, pharmacy does recommend either nitrofurantoin or fosfomycin as more is known about the effectiveness of these drugs with ESBL E. coli. -Received 1 more dose of IV ertapenem on 10/31 and then convert to nitrofurantoin twice daily on 11/01 to finish out 7-day course (3) Depression: Plan: In speaking with the patient's daughter on the phone, she has great concerns about the patient having significant depression. She reports that the patient has become withdrawn even from her favorite family members that she usually speaks to. Is refusing to take phone calls from people. Has been eating very minimally and has lost weight as per daughter. She has also made statements that she wishes her life was over, but is not threatening to harm herself. Daughter is requesting consultation with a therapist or a resource engineer and is interested in perhaps starting her mother on an additional or different antidepressant. -Remeron would be a good option to stimulate appetite, help with depression, and help with insomnia from which the patient suffers-defer to psychiatry for choice of drug -Consult yard driver as per daughter's request -Consult psychiatry at daughter's request--reviewed consult, noted some recommendations but no changes made -daughter is adamantly requesting that the paxil be increased as she feels something needs adjusted to improve her mood/depression -appreciating her concern and bc this is a minimal increase and one that was mentioned by psychiatry, will increase her paxil to 50mg daily (4) Elevated troponin: Plan: -Noted to be 16.6 on ED labs , trended and peaked at 20 and back down the morning after admission -No chest pain or ECG changes, likely due to demand ischemia has a h/o CABG continue ASA her metoprolol is no longer on her list, not sure why stopped since last admission-daughter is not sure either but is okay with restarting it -Restarted Toprol-XL 25 mg p.o. once daily but had SBP<100 so reduced dose to 12.5mg daily continue statin (5) CAD (coronary artery disease): Plan: HTN, CAD (w h/o CABG), PAF (s/p watchman) -Continue aspirin and metoprolol, statin (6) Dementia: Plan: -continue Seroquel, lamictal, and ativan at bedtime as per daughter for sleep (7) Chronic respiratory failure with hypoxia and hypercapnia: Plan: D/t COPD -Baseline O2 is 3L NC, currently stable on 2L NC here -Continue home breathing treatments with prn albuterol for wheezing Plan Dispo-stable for discharge, awaiting placement in SNF. Daughter does not feel that she is able to provide 24-7 care for her at home. Case management has faxed referrals to multiple facilities and thus far no facility has accepted due to lack of beds. Plan d/w Dr. Garcia. Admission and Anticipated Discharge Date Admission Date: October 27, 2021 Subjective Patient seen on daily rounds this morning. She is resting in bedside chair, no complaints this AM. Remains pleasantly confused. Review of Systems Review of Systems: Endorses back and neck pain but accurate ROS is limited given her dementia Physical Exam Physical Exam: GENERAL: 81 yo Well-developed, well-nourished WF. NAD. LUNGS: Clear to auscultation bilaterally. No W/R/R. CARDIOVASCULAR: Regular rate and rhythm. ABDOMEN: Soft, non-tender and non-distended. BS normoactive x 4 quad. EXTREMITIES: No edema. Non-tender. Peripheral pulses +2/4. NEUROLOGIC: A&O x1 PSYCHIATRIC: Cooperative. Appropriate mood and affect. SKIN: Warm, dry, intact. No rashes or lesions. Results & Data Results & Data ([facility]) Vital Signs (Past 12 Hours) Vital Signs Pulse Resp BP 11/08/21 09:07 85 18 111/71 Laboratory Results UA collected from 11/07 appears either infected or contaminated urine cx pending PG Care Time/CCT Total # of Minutes Spent Total Time Spent with Patient: Total time spent is greater than 50% in coordination of care (as documented) at patient's floor/unit and/or counseling patient: Coding Level of Care Code 84136 Subseq Hosp Care Lvl 1 Diagnoses Fall W19.XXXA Encounter type: initial encounter UTI (urinary tract infection) N39.0 Depression F32.A Elevated troponin R77.8 CAD (coronary artery disease) I25.10 Associated angina: unspecified whether angina present Coronary Disease-Associated Artery/Lesion type: unspecified vessel or lesion type [place] vs. transplanted heart: unspecified whether [place] or transplanted heart Dementia F03.91 Dementia behavioral disturbance: with behavioral disturbance Dementia type: unspecified type Chronic respiratory failure with hypoxia and hypercapnia J96.11; J96.12 (1) Fall Encounter type: initial encounter Qualified Code(s): W19.XXXA - Unspecified fall, initial encounter (2) CAD (coronary artery disease) Associated angina: unspecified whether angina present Coronary Disease- Associated Artery/Lesion type: unspecified vessel or lesion type [place] vs. transplanted heart: unspecified whether [place] or transplanted heart Qualified Code(s): I25.10 - Atherosclerotic heart disease of [place] coronary artery without angina pectoris (3) Dementia Dementia behavioral disturbance: with behavioral disturbance Dementia type: unspecified type Qualified Code(s): F03.91 - Unspecified dementia with behavioral disturbance
[2021-11-08] MEDS: POTASSIUM CHLORIDE CRTAB 20 MEQ TABCR PO SCH (14:25)
[2021-11-08] MEDS: ATORVASTATIN 40 MG TAB PO SCH (14:25)
[2021-11-08] MEDS: DOCUSATE SODIUM/SENNA 50/8.6MG TAB PO SCH (21:07)
[2021-11-08] MEDS: LIDOCAINE 5% 1 PATCH TD SCH (21:07)
[2021-11-08] MEDS: LORazepam 0.5 MG TAB PO SCH (21:08)
[2021-11-08] MEDS: QUEtiapine FUMARATE 25 MG TABLET PO SCH (21:08)
[2021-11-08] MEDS: MELATONIN 3 MG TAB PO PRN (21:08)
[2021-11-09] MEDS: FLUTICASONE/VILANTEROL 100/25MCG 14 PUFFS/INHALER INH SCH (07:21)
[2021-11-09] MEDS: SUCRALFATE 1 GM TAB PO SCH ×3 (07:22→16:31)
[2021-11-09] MEDS: PARoxetine HCl CONTROLLED REL 12.5 MG TABCR PO SCH (07:23)
[2021-11-09] MEDS: lamoTRIgine 100 MG TAB PO SCH ×2 (07:24→21:34)
[2021-11-09] MEDS: PANTOprazole 40 MG TAB PO SCH ×2 (07:24→21:34)
[2021-11-09] MEDS: oxyCODONE/ACETAMINOPHEN 10-325 TAB PO SCH ×3 (07:56→21:29)
[2021-11-09] MEDS: METOPROLOL SUCC 25MG EXT REL TAB PO SCH (09:10)
[2021-11-09] MEDS: FUROSEMIDE 40 MG TAB PO SCH (09:10)
--- NOTE | 2021-11-09 09:18 | Hospitalist Progress Note ---
Date of Service November 09, 2021 Assessment & Plan (1) Fall: Plan: Admitted after a fall (with history of falls/weakness). Imaging with minimal chronic superior endplate compression deformity of T4. Also has multilevel degenerative disc disease. Needing placement, prior in [place] but brought home after few months at patient request and rohit had been taking care of her 24/7 x ~5 weeks Also with UTI --> completed course abx inpatient B12 wnl TSH wnl earlier this year Fall precautions Pain control --controlled with Tylenol and lidocaine patch, * Percocet scheduled-has a long history of chronic neck and back pain for which she used to receive injections and see pain management * -daughter also reports pt takes scheduled percocet but is okay with decreasing dose down every 8 hours * patient denies any increased pain/need for additional pain medication PT/OT -- rec SNF awaiting placement -- may need to consider additional facilities (pancho gave 6, CM following) (2) UTI (urinary tract infection): Plan: Abnormal UA on arrival, urine culture growing ESBL E. coli sensitive to Augmentin, ertapenem, meropenem, nitrofurantoin, Zosyn, and Bactrim Did have a low grade fever here on 2nd hospital day but no signs of sepsis, flank pain, etc. so could be considered uncomplicated UTI Given Rocephin 10/28 x 3 doses, then switched to IV Ertapenem 10/30 with culture results Discussed with pharmacy given ESBL Ecoli, despite sentitivities to Augmentin/Bactrim, pharmacy rec Nitro or dosfomycin as more known about effectiveness Given additional dose Ertapenem 10/31 and switched to Nitro PO BID and completed 7 day course inpatient Repeat cx more than 3 types, all moderate counts mixed skin aida Denies any urinary sx currently (3) Depression: Plan: In speaking with the patient's daughter on the phone, she has great concerns about the patient having significant depression. She reports that the patient has become withdrawn even from her favorite family members that she usually speaks to. Is refusing to take phone calls from people. Has been eating very minimally and has lost weight as per daughter. She has also made statements that she wishes her life was over, but is not threatening to harm herself. Daughter is requesting consultation with a therapist or a handle lathe operator and is interested in perhaps starting her mother on an additional or different antidepressant. -Remeron would be a good option to stimulate appetite, help with depression, and help with insomnia from which the patient suffers-defer to psychiatry for choice of drug Consulted farm machinery mechanic as per daughter's request -Consult psychiatry at daughter's request --reviewed consult, noted some recommendations but no changes made --> further discussions with daughter in days past and wanted increased Paxil. Increased to 50mg daily --> continue at d/c, also continue seroquel 50mg HS mood appears stable currently (4) Elevated troponin: Plan: Noted to be 16.6 on ED labs , trended and peaked at 20 and back down the morning after admission h/o CABG, CAD s/p [place] 2004 s/p 2 Intracoronary Stents followed by CABG x 2 Vessels, Ischemic Cardiomyopathy s/p AICD, Chronic Systolic CHF No chest pain or ECG changes, likely due to demand ischemia continue ASA her metoprolol is no longer on her list, not sure why stopped since last admission-daughter is not sure either but is okay with restarting it HAS BEEN CONTINUED ISSUE WITH THIS MEDICATION IN PASSED BEING DISCONTINUED * Restarted Toprol-XL 25 mg p.o. once daily but had SBP<100 so reduced dose to 12.5mg daily * BP currently 124/72, could consider increasing/parameters but will continue 12.5mg daily for now (had episode of wide complex tachycardia in February when off this medication) Had history of paroxysmal afib (has watchman device) continue statin (5) CAD (coronary artery disease): Plan: HTN, CAD (w h/o CABG), PAF (s/p watchman) -Continue aspirin and metoprolol, statin (6) Dementia: Plan: -continue Seroquel, lamictal, and ativan at bedtime as per daughter for sleep (7) Chronic respiratory failure with hypoxia and hypercapnia: Plan: D/t COPD -Baseline O2 is 3L NC, currently stable on 2L NC here -Continue home breathing treatments with prn albuterol for wheezing Plan Dispo-stable for discharge, awaiting placement in SNF. Daughter does not feel that she is able to provide 24-7 care for her at home. Case management has faxed referrals to multiple facilities and thus far no facility has accepted due to lack of beds. Plan d/w Dr. Garcia. Admission and Anticipated Discharge Date Admission Date: October 27, 2021 Supervising Physician Co-Signing Physician Notes PA Supervision Note: I did not personally see or examine the patient today, but I verified all rivero points of PATRICIA Justice's assessment and plan with the following exceptions/additions: None Subjective Patient eval this afternoon. Got cleaned up/hair done by RN this morning. Feeling well. Hoping to go home. Discussed rehab, she questioned this. Discussed unsafe at home until stronger and those are recommendations currently but if they change during inpatient course we can see about reaching back out to daughter. Breathing stable on 2L (baseline 2-3L). No fever/chills, chest pain, abdominal pain, nausea or vomiting. Questions/concerns addressed at this time.. Review of Systems Review of Systems: All systems reviewed & are unremarkable except as noted in HPI & below Physical Exam Physical Exam: General: WD/WN 81yo female sitting up in bed, babydoll on bedside table, NAD HEENT: head normocephalic, atraumatic, mmm, trachea midline without deviation Resp: CTAB, no w/c/r, on 2 L NC CV: RRR, +murmur, no calf tenderness, no pitting edema, pulses palapable GI: +BS, soft nontender MSK/Neuro: moves all extremities, no focal deficit Psych alert to person/place, wanting to go home, cooperative Skin: warm, dry Results & Data Results & Data ([facility]) Vital Signs (Past 12 Hours) Vital Signs Temp Pulse Resp BP Pulse Ox O2 Del Method O2 Flow Rate 11/09/21 09:11 77 124/72 11/09/21 07:26 Nasal Cannula 2 11/09/21 07:26 36.7 C 69 18 106/74 97 Nasal Cannula 2 11/08/21 22:21 36.6 C 78 18 92/54 L 93 Nasal Cannula 2 PG Care Time/CCT Total # of Minutes Spent Total Time Spent with Patient: Total time spent is greater than 50% in coordination of care (as documented) at patient's floor/unit and/or counseling patient: Coding Level of Care Code 57794 Subseq Hosp Care Lvl 2 Diagnoses Fall W19.XXXA Encounter type: initial encounter UTI (urinary tract infection) N39.0 Depression F32.A Elevated troponin R77.8 CAD (coronary artery disease) I25.10 Associated angina: unspecified whether angina present Coronary Disease-Associated Artery/Lesion type: unspecified vessel or lesion type [place] vs. transplanted heart: unspecified whether [place] or transplanted heart Dementia F03.91 Dementia behavioral disturbance: with behavioral disturbance Dementia type: unspecified type Chronic respiratory failure with hypoxia and hypercapnia J96.11; J96.12 (1) CAD (coronary artery disease) Associated angina: unspecified whether angina present Coronary Disease-A ssociated Artery/Lesion type: unspecified vessel or lesion type [place] vs. transplanted heart: unspecified whether [place] or transplanted heart Qualified Code(s): I25.10 - Atherosclerotic heart disease of [place] coronary artery without angina pectoris (2) Dementia Dementia behavioral disturbance: with behavioral disturbance Dementia type: unspecified type Qualified Code(s): F03.91 - Unspecified dementia with behavioral disturbance (3) Fall Encounter type: initial encounter Qualified Code(s): W19.XXXA - Unspecified fall, initial encounter
[2021-11-09] MEDS: ASPIRIN 81 MG ECTAB PO SCH (13:06)
[2021-11-09] MEDS: POTASSIUM CHLORIDE CRTAB 20 MEQ TABCR PO SCH (16:31)
[2021-11-09] MEDS: ATORVASTATIN 40 MG TAB PO SCH (16:31)
[2021-11-09] MEDS: LORazepam 0.5 MG TAB PO SCH (21:29)
[2021-11-09] MEDS: MELATONIN 3 MG TAB PO PRN (21:29)
[2021-11-09] MEDS: DOCUSATE SODIUM/SENNA 50/8.6MG TAB PO SCH (21:30)
[2021-11-09] MEDS: QUEtiapine FUMARATE 25 MG TABLET PO SCH (21:34)
[2021-11-09] MEDS: LIDOCAINE 5% 1 PATCH TD SCH (21:45)
[2021-11-10] MEDS: oxyCODONE/ACETAMINOPHEN 10-325 TAB PO SCH ×2 (06:24→15:43)
[2021-11-10] MEDS: METOPROLOL SUCC 25MG EXT REL TAB PO SCH (07:34)
[2021-11-10] MEDS: FUROSEMIDE 40 MG TAB PO SCH (07:35)
[2021-11-10] MEDS: PANTOprazole 40 MG TAB PO SCH (07:35)
[2021-11-10] MEDS: SUCRALFATE 1 GM TAB PO SCH ×3 (07:36→15:44)
[2021-11-10] MEDS: lamoTRIgine 100 MG TAB PO SCH (07:36)
[2021-11-10] MEDS: ASPIRIN 81 MG ECTAB PO SCH (07:36)
[2021-11-10] MEDS: FLUTICASONE/VILANTEROL 100/25MCG 14 PUFFS/INHALER INH SCH (07:36)
[2021-11-10] MEDS: PARoxetine HCl CONTROLLED REL 12.5 MG TABCR PO SCH (07:36)
--- NOTE | 2021-11-10 08:15 | Hospitalist Progress Note ---
Date of Service November 10, 2021 Assessment & Plan (1) Fall: Plan: Admitted after a fall (with history of falls/weakness). Imaging with minimal chronic superior endplate compression deformity of T4. Also has multilevel degenerative disc disease. Needing placement, prior in [place] but brought home after few months at patient request and [facility]hit had been taking care of her 24/7 x ~5 weeks Also with UTI --> completed course abx inpatient B12 wnl TSH wnl earlier this year Fall precautions Pain control --controlled with Tylenol and lidocaine patch, * Percocet scheduled-has a long history of chronic neck and back pain for which she used to receive injections and see pain management * -daughter also reports pt takes scheduled percocet but is okay with decreasing dose down every 8 hours * patient denies any increased pain/need for additional pain medication PT/OT -- rec SNF awaiting placement -- may need to consider additional facilities (pancho gave 6, CM following) (2) UTI (urinary tract infection): Plan: Abnormal UA on arrival, urine culture growing ESBL E. coli sensitive to Augmentin, ertapenem, meropenem, nitrofurantoin, Zosyn, and Bactrim Did have a low grade fever here on 2nd hospital day but no signs of sepsis, flank pain, etc. so could be considered uncomplicated UTI Given Rocephin 10/28 x 3 doses, then switched to IV Ertapenem 10/30 with culture results Discussed with pharmacy given ESBL Ecoli, despite sentitivities to Augmentin/Bactrim, pharmacy rec Nitro or dosfomycin as more known about effectiveness Given additional dose Ertapenem 10/31 and switched to Nitro PO BID and completed 7 day course inpatient Repeat cx more than 3 types, all moderate counts mixed skin aida Denies any urinary sx currently (3) Depression: Plan: In speaking with the patient's daughter on the phone, she has great concerns about the patient having significant depression. She reports that the patient has become withdrawn even from her favorite family members that she usually speaks to. Is refusing to take phone calls from people. Has been eating very minimally and has lost weight as per daughter. She has also made statements that she wishes her life was over, but is not threatening to harm herself. Daughter is requesting consultation with a therapist or a long wall mining machine helper and is interested in perhaps starting her mother on an additional or different antidepressant. -Remeron would be a good option to stimulate appetite, help with depression, and help with insomnia from which the patient suffers-defer to psychiatry for choice of drug Consulted information assurance officer as per daughter's request -- confirmed has visited more than once -Consult psychiatry at daughter's request --reviewed consult, noted some recommendations but no changes made --> further discussions with daughter in days past and wanted increased Paxil. Increased to 50mg daily --> continue at d/c, also continue seroquel 50mg HS mood appears stable currently Consider remeron if any decrease in mood, but appearing in good spirits and no issues reported by nursing. Patient wanting to watch lifetime movies, which she enjoyed in the past. (4) Elevated troponin: Plan: Noted to be 16.6 on ED labs , trended and peaked at 20 and back down the morning after admission h/o CABG, CAD s/p [place] 2004 s/p 2 Intracoronary Stents followed by CABG x 2 Vessels, Ischemic Cardiomyopathy s/p AICD, Chronic Systolic CHF No chest pain or ECG changes, likely due to demand ischemia continue ASA her metoprolol is no longer on her list, not sure why stopped since last admission-daughter is not sure either but is okay with restarting it HAS BEEN CONTINUED ISSUE WITH THIS MEDICATION IN PAST BEING DISCONTINUED * Restarted Toprol-XL 25 mg p.o. once daily but had SBP<100 so reduced dose to 12.5mg daily * BP currently 106/71, could consider increasing/parameters but will continue 12.5mg daily for now (had episode of wide complex tachycardia in February when off this medication) Had history of paroxysmal afib (has watchman device) continue statin (5) CAD (coronary artery disease): Plan: HTN, CAD (w h/o CABG), PAF (s/p watchman) -Continue aspirin and metoprolol, statin (6) Dementia: Plan: -continue Seroquel, lamictal, and ativan at bedtime as per daughter for sleep (7) Chronic respiratory failure with hypoxia and hypercapnia: Plan: D/t COPD -Baseline O2 is 3L NC, currently stable on 2L NC here -Continue home breathing treatments with prn albuterol for wheezing Plan continued inpatient stay awaiting placement [facility], hoping to be able to expand bed search Admission and Anticipated Discharge Date Admission Date: October 27, 2021 Supervising Physician Co-Signing Physician Notes PA Supervision Note: I did not personally see or examine the patient today, but I verified all rivero points of PATRICIA Justice's assessment and plan with the following exceptions/additions: None Subjective eval this morning, doing well. wanting to watch lifetime this morning resting comfortable in bed with baby doll. awaiting placement, CM reached out to daughter yesterday about additional locations. Discussed with hospital secretary, confirmed with information assurance officer that he has visited with patient several times. No fever/chills, chest pain, shortness of breath abdominal pain nausea or vomiting reported. Review of Systems Review of Systems: All systems reviewed & are unremarkable except as noted in HPI & below Physical Exam Physical Exam: General: WD/WN 81yo female sitting in bed, watching TV, babydoll in bed with patient, NAD HEENT: head normocephalic, atraumatic, mmm, trachea midline without deviation Resp: CTAB, no w/c/r, on 2 L NC CV: RRR, +murmur, no calf tenderness, no pitting edema, pulses palapable GI: +BS, soft nontender MSK/Neuro: moves all extremities, no focal deficit Psych alert to person/place, wanting to go home, cooperative Skin: warm, dry Results & Data Results & Data ([facility]) Vital Signs (Past 12 Hours) Vital Signs Temp Pulse Resp BP BP Pulse Ox O2 Del Method 11/10/21 07:55 36.7 C 62 16 106/71 96 Nasal Cannula 11/09/21 22:05 Room Air 11/09/21 21:18 36.5 C 79 18 117/69 92 Nasal Cannula O2 Flow Rate 11/10/21 07:55 2 11/09/21 22:05 11/09/21 21:18 2 PG Care Time/CCT Total # of Minutes Spent Total Time Spent with Patient: Total time spent is greater than 50% in coordination of care (as documented) at patient's floor/unit and/or counseling patient: Coding Level of Care Code 04980 Subseq Hosp Care Lvl 1 Diagnoses Fall W19.XXXA Encounter type: initial encounter UTI (urinary tract infection) N39.0 Depression F32.A Elevated troponin R77.8 CAD (coronary artery disease) I25.10 Associated angina: unspecified whether angina present Coronary Disease-Associated Artery/Lesion type: unspecified vessel or lesion type [place] vs. transplanted heart: unspecified whether [place] or transplanted heart Dementia F03.91 Dementia behavioral disturbance: with behavioral disturbance Dementia type: unspecified type Chronic respiratory failure with hypoxia and hypercapnia J96.11; J96.12 (1) CAD (coronary artery disease) Associated angina: unspecified whether angina present Coronary Disease- Associated Artery/Lesion type: unspecified vessel or lesion type [place] vs. transplanted heart: unspecified whether [place] or transplanted heart Qualified Code(s): I25.10 - Atherosclerotic heart disease of [place] coronary artery withou t angina pectoris (2) Dementia Dementia behavioral disturbance: with behavioral disturbance Dementia type: unspecified type Qualified Code(s): F03.91 - Unspecified dementia with behavioral disturbance (3) Fall Encounter type: initial encounter Qualified Code(s): W19.XXXA - Unspecified fall, initial encounter
[2021-11-10] MEDS: ATORVASTATIN 40 MG TAB PO SCH (15:44)
[2021-11-10] MEDS: POTASSIUM CHLORIDE CRTAB 20 MEQ TABCR PO SCH (15:44)
[2021-11-10] MEDS: MELATONIN 3 MG TAB PO PRN (20:01)
[2021-11-10] MEDS: LORazepam 0.5 MG TAB PO SCH (20:01)
[2021-11-10] MEDS: QUEtiapine FUMARATE 25 MG TABLET PO SCH (20:02)
[2021-11-11] MEDS: PANTOprazole 40 MG TAB PO SCH ×4 (01:42→20:12)
[2021-11-11] MEDS: LORazepam 0.5 MG TAB PO SCH ×2 (01:43→20:19)
[2021-11-11] MEDS: LIDOCAINE 5% 1 PATCH TD SCH ×2 (01:43→20:11)
[2021-11-11] MEDS: DOCUSATE SODIUM/SENNA 50/8.6MG TAB PO SCH ×2 (01:43→20:11)
[2021-11-11] MEDS: QUEtiapine FUMARATE 25 MG TABLET PO SCH ×2 (01:43→20:19)
[2021-11-11] MEDS: oxyCODONE/ACETAMINOPHEN 10-325 TAB PO SCH ×3 (01:43→14:19)
[2021-11-11] MEDS: lamoTRIgine 100 MG TAB PO SCH ×4 (01:43→20:11)
[2021-11-11] MEDS: FLUTICASONE/VILANTEROL 100/25MCG 14 PUFFS/INHALER INH SCH (08:51)
[2021-11-11] MEDS: ASPIRIN 81 MG ECTAB PO SCH ×2 (08:51→09:53)
[2021-11-11] MEDS: FUROSEMIDE 40 MG TAB PO SCH ×2 (08:51→09:52)
[2021-11-11] MEDS: SUCRALFATE 1 GM TAB PO SCH ×4 (08:51→16:18)
[2021-11-11] MEDS: PARoxetine HCl CONTROLLED REL 12.5 MG TABCR PO SCH ×2 (08:53→09:50)
[2021-11-11] MEDS: METOPROLOL SUCC 25MG EXT REL TAB PO SCH ×2 (08:53→09:52)
--- NOTE | 2021-11-11 09:14 | Hospitalist Progress Note ---
Date of Service November 11, 2021 Assessment & Plan (1) Fall: Plan: Admitted after a fall (with history of falls/weakness). Imaging with minimal chronic superior endplate compression deformity of T4. Also has multilevel degenerative disc disease. Needing placement, prior in [place] but brought home after few months at patient request and [facility] had been taking care of her 28/08 x ~5 weeks Also with UTI --> completed course abx inpatient B12 wnl TSH wnl earlier this year Fall precautions Pain control --controlled with Tylenol and lidocaine patch, * Percocet scheduled-has a long history of chronic neck and back pain for which she used to receive injections and see pain management * -daughter also reports pt takes scheduled percocet but is okay with decreasing dose down every 8 hours * patient denies any increased pain/need for additional pain medication PT/OT -- rec SNF awaiting placement -- may need to consider additional facilities (pacnho gave 6, CM following) 11/11 --> refused all medications last evening and this morning but was able to late administer this morning without issue. Initially just said "no no no" but was able to convince VSS and remains 94% on 2L (2) UTI (urinary tract infection): Plan: Abnormal UA on arrival, urine culture growing ESBL E. coli sensitive to Augmentin, ertapenem, meropenem, nitrofurantoin, Zosyn, and Bactrim Did have a low grade fever here on 2nd hospital day but no signs of sepsis, flank pain, etc. so could be considered uncomplicated UTI Given Rocephin 10/28 x 3 doses, then switched to IV Ertapenem 10/30 with culture results Discussed with pharmacy given ESBL Ecoli, despite sentitivities to Augmentin/Bactrim, pharmacy rec Nitro or dosfomycin as more known about effectiveness Given additional dose Ertapenem 10/31 and switched to Nitro PO BID and completed 7 day course inpatient Repeat cx more than 3 types, all moderate counts mixed skin aida Denies any urinary sx currently (3) Depression: Plan: In speaking with the patient's daughter on the phone, she has great concerns about the patient having significant depression. She reports that the patient has become withdrawn even from her favorite family members that she usually speaks to. Is refusing to take phone calls from people. Has been eating very minimally and has lost weight as per daughter. She has also made statements that she wishes her life was over, but is not threatening to harm herself. Daughter is requesting consultation with a therapist or a hotel attendant and is interested in perhaps starting her mother on an additional or different antidepressant. -Remeron would be a good option to stimulate appetite, help with depression, and help with insomnia from which the patient suffers-defer to psychiatry for choice of drug Consulted yardage tufting machine operator as per daughter's request -- confirmed has visited more than once -Consult psychiatry at daughter's request --reviewed consult, noted some recommendations but no changes made --> further discussions with daughter in days past and wanted increased Paxil. Increased to 50mg daily --> continue at d/c, also continue seroquel 50mg HS mood appears stable currently Consider remeron if any decrease in mood, but appearing in good spirits and no issues reported by nursing. Patient wanting to watch lifetime movies, which she enjoyed in the past. However, did refuse meds last evening as well as her HS ativan and seroquel If issues again tonight consider starting remeron (4) Elevated troponin: Plan: Noted to be 16.6 on ED labs , trended and peaked at 20 and back down the morning after admission h/o CABG, CAD s/p [place] 2004 s/p 2 Intracoronary Stents followed by CABG x 2 Vessels, Ischemic Cardiomyopathy s/p AICD, Chronic Systolic CHF No chest pain or ECG changes, likely due to demand ischemia continue ASA her metoprolol is no longer on her list, not sure why stopped since last admission-daughter is not sure either but is okay with restarting it HAS BEEN CONTINUED ISSUE WITH THIS MEDICATION IN PAST BEING DISCONTINUED * Restarted Toprol-XL 25 mg p.o. once daily but had SBP<100 so reduced dose to 12.5mg daily * BP currently 135/85 , could consider increasing/parameters but will continue 12.5mg daily for now (had episode of wide complex tachycardia in February when off this medication). Refused AM metoprolol but then accepted 11/11 Had history of paroxysmal afib (has watchman device) continue statin (5) CAD (coronary artery disease): Plan: HTN, CAD (w h/o CABG), PAF (s/p watchman) -Continue aspirin and metoprolol, statin (6) Dementia: Plan: -continue Seroquel, lamictal, and ativan at bedtime as per daughter for sleep refused HS 11/10, monitor (7) Chronic respiratory failure with hypoxia and hypercapnia: Plan: D/t COPD -Baseline O2 is 3L NC, currently stable on 2L NC here 94% -Continue home breathing treatments with prn albuterol for wheezing Plan continued inpatient stay awaiting placement CM following, hoping to be able to expand bed search Admission and Anticipated Discharge Date Admission Date: October 27, 2021 Supervising Physician Co-Signing Physician Notes PA Supervision Note: I did not personally see or examine the patient today, but I verified all rivero points of PATRICIA Justice's assessment and plan with the following exceptions/additions: None Subjective eval this afternoon no acute events did refuse PM meds last night, again this morning but RN was able to late adminster encouraged complaince so that she gets better she still wants to go home, discussed continuing to work with therapy and focus on getting stronger denies any fever/chill, chest pain , shortness of breath, abd pain, n/v eating without issue. watching lifetime in bed. singing in georgian awaiting placement Review of Systems Review of Systems: All systems reviewed & are unremarkable except as noted in HPI & below Physical Exam Physical Exam: General: WD/WN 81yo female sitting in bed, watching TV, babydoll in bed with patient, NAD HEENT: head normocephalic, atraumatic, mmm, trachea midline without deviation Resp: CTAB, no w/c/r, on 2 L NC CV: RRR, +murmur, no calf tenderness, no pitting edema, pulses palapable GI: +BS, soft nontender MSK/Neuro: moves all extremities, no focal deficit Psych alert to person/place, wanting to go home, cooperative Skin: warm, dry Results & Data Results & [facility] ([facility]) Vital Signs (Past 12 Hours) Vital Signs Temp Pulse Pulse Resp BP BP Pulse Ox 11/11/21 08:29 36.8 C 73 18 135/82 94 11/11/21 03:55 36.8 C 71 20 135/82 91 O2 Del Method O2 Flow Rate 11/11/21 08:29 Nasal Cannula 2 11/11/21 03:55 Room Air PG Care Time/CCT Total # of Minutes Spent Total Time Spent with Patient: Total time spent is greater than 50% in coordination of care (as documented) at patient's floor/unit and/or counseling patient: Coding Level of Care Code 19426 Subseq Hosp Care Lvl 1 Diagnoses Fall W19.XXXA Encounter type: initial encounter UTI (urinary tract infection) N39.0 Depression F32.A Elevated troponin R77.8 CAD (coronary artery disease) I25.10 Associated angina: unspecified whether angina present Coronary Disease-Associated Artery/Lesion type: unspecified vessel or lesion type [place] vs. transplanted heart: unspecified whether [place] or transplanted heart Dementia F03.91 Dementia behavioral disturbance: with behavioral disturbance Dementia type: unspecified type Chronic respiratory failure with hypoxia and hypercapnia J96.11; J96.12 (1) CAD (coronary artery disease) Associated angina: unspecified whether angina present Coronary Disease- Associated Artery/Lesion type: unspecified vessel or lesion type [place] vs. transplanted heart: unspecified whether [place] or transplanted heart Qualified Code(s): I25.10 - Atherosclerotic heart disease of [place] coronary artery without angina pectoris (2) Dementia Dementia behavioral disturbance: with behavioral disturbance Dementia type: unspecified type Qualified Code(s): F03.91 - Unspecified dementia with behavioral disturbance (3) Fall Encounter type: initial encounter Qualified Code(s): W19.XXXA - Unspecified fall, initial encounter
[2021-11-11] MEDS: POTASSIUM CHLORIDE CRTAB 20 MEQ TABCR PO SCH (14:18)
[2021-11-11] MEDS: ATORVASTATIN 40 MG TAB PO SCH (14:19)
[2021-11-12] MEDS: oxyCODONE/ACETAMINOPHEN 10-325 TAB PO SCH ×2 (03:21→08:14)
[2021-11-12 07:32] LABS: Hemoglobin 11.3 g/dl (12.0-16.0); Mean Corpuscular Hemoglobin 28.2 pg (25.0-34.0); Mean Corpuscular Hgb Conc 32.3 g/dL (32.0-36.0); Mean Corpuscular Volume 87.3 fL (80.0-100.0); Mean Platelet Volume 10.1 fL (9.4-12.3); Platelet Count 197 K/uL (130-400); RDW Coefficient of Variation 14.5 % (11.5-14.5); RDW Standard Deviation 46.7 fL (36.4-46.3); Red Blood Count 4.01 M/uL (3.93-5.22); White Blood Count 5.22 K/ul (4.8-10.8)
[2021-11-12 07:50] LABS: BUN Creatinine Ratio 16.3 (10-20); Calcium 9.3 mg/dl (8.5-10.1); Creatinine Clr Calc Pharmacy 34.4 ml/min; Est GFR (African American) 61.8 ml/min; Est GFR (Non-African American) 53.3 ml/min; Magnesium 1.9 mg/dl (1.7-2.4); Potassium 3.6 mmol/L (3.5-5.1)
[2021-11-12] MEDS: SUCRALFATE 1 GM TAB PO SCH ×3 (08:14→15:04)
[2021-11-12] MEDS: METOPROLOL SUCC 25MG EXT REL TAB PO SCH (08:14)
[2021-11-12] MEDS: ASPIRIN 81 MG ECTAB PO SCH (08:14)
[2021-11-12] MEDS: lamoTRIgine 100 MG TAB PO SCH (08:15)
[2021-11-12] MEDS: PARoxetine HCl CONTROLLED REL 12.5 MG TABCR PO SCH (08:15)
[2021-11-12] MEDS: PANTOprazole 40 MG TAB PO SCH (08:15)
[2021-11-12] MEDS: FLUTICASONE/VILANTEROL 100/25MCG 14 PUFFS/INHALER INH SCH (08:15)
[2021-11-12] MEDS: FUROSEMIDE 40 MG TAB PO SCH (08:16)
--- NOTE | 2021-11-12 08:41 | Hospitalist Progress Note ---
Date of Service November 12, 2021 Assessment & Plan (1) Fall: Plan: Admitted after a fall (with history of falls/weakness). Imaging with minimal chronic superior endplate compression deformity of T4. Also has multilevel degenerative disc disease. Needing placement, prior in [place] but brought home after few months at patient request and rohit had been taking care of her 28/08 x ~5 weeks Also with UTI --> completed course abx inpatient B12 wnl TSH wnl earlier this year Fall precautions Pain control --controlled with Tylenol and lidocaine patch, * Percocet scheduled-has a long history of chronic neck and back pain for which she used to receive injections and see pain management * -daughter also reports pt takes scheduled percocet but is okay with decreasing dose down every 8 hours * patient denies any increased pain/need for additional pain medication PT/OT -- rec SNF awaiting placement -- may need to consider additional facilities (pancho gave 6, CM following) 11/11 --> refused all medications last evening and this morning but was able to late administer this morning without issue. Initially just said "no no no" but was able to convince VSS and remains 94% on 2L 11/12 - -> neb overnight for wheezing in system Labs stable compared to prior on repeat took medications awaiting placement locked up some kind of vape pen, ?if contributed to intermittent laughing/giggling yesterday? Unclear if tobacco product given hx smoking will need to check w/ daughter (2) UTI (urinary tract infection): Plan: Abnormal UA on arrival, urine culture growing ESBL E. coli sensitive to Augmen tin, ertapenem, meropenem, nitrofurantoin, Zosyn, and Bactrim Did have a low grade fever here on 2nd hospital day but no signs of sepsis, flank pain, etc. so could be considered uncomplicated UTI Given Rocephin 10/28 x 3 doses, then switched to IV Ertapenem 10/30 with culture results Discussed with pharmacy given ESBL Ecoli, despite sensitivities to Augmentin/Bactrim, pharmacy rec Macrobid or fosfomycin as more known about effectiveness Given additional dose Ertapenem 10/31 and switched to Nitro PO BID and completed 7 day course inpatient Repeat cx more than 3 types, all moderate counts mixed skin aida Denies any urinary sx currently (3) Depression: Plan: In speaking with the patient's daughter on the phone, she has great concerns about the patient having significant depression. She reports that the patient has become withdrawn even from her favorite family members that she usually speaks to. Is refusing to take phone calls from people. Has been eating very minimally and has lost weight as per daughter. She has also made statements that she wishes her life was over, but is not threatening to harm herself. Daughter is requesting consultation with a therapist or a stripper apprentice and is interested in perhaps starting her mother on an additional or different antidepressant. -Remeron would be a good option to stimulate appetite, help with depression, and help with insomnia from which the patient suffers-defer to psychiatry for choice of drug Consulted aircraft maintenance instructor as per daughter's request -- confirmed has visited more than once -Consult psychiatry at daughter's request --reviewed consult, noted some recommendations but no changes made --> further discussions with daughter in days past and wanted increased Paxil. Increased to 50mg daily --> continue at d/c, also continue seroquel 50mg HS mood appears stable currently consider remeron if needed (4) Elevated troponin: Plan: Noted to be 16.6 on ED labs , trended and peaked at 20 and back down the morning after admission h/o CABG, CAD s/p [place] 2004 s/p 2 Intracoronary Stents followed by CABG x 2 Vessels, Ischemic Cardiomyopathy s/p AICD, Chronic Systolic CHF No chest pain or ECG changes, likely due to demand ischemia continue ASA her metoprolol is no longer on her list, not sure why stopped since last admission-daughter is not sure either but is okay with restarting it HAS BEEN CONTINUED ISSUE WITH THIS MEDICATION IN PAST BEING DISCONTINUED * Restarted Toprol-XL 25 mg p.o. once daily but had SBP<100 so reduced dose to 12.5mg daily * BP currently 120/71 , could consider increasing/parameters but will continue 12.5mg daily for now (had episode of wide complex tachycardia in February when off this medication). Had history of paroxysmal afib (has watchman device) continue statin (5) CAD (coronary artery disease): Plan: HTN, CAD (w h/o CABG), PAF (s/p watchman) -Continue aspirin and metoprolol, statin (6) Dementia: Plan: -continue Seroquel, lamictal, and ativan at bedtime as per daughter for sleep (7) Chronic respiratory failure with hypoxia and hypercapnia: Plan: D/t COPD -Baseline O2 is 3L NC, currently stable on 2L NC here 99% -Continue home breathing treatments with prn albuterol for wheezing neb last evening Plan continued inpatient stay awaiting placement CM following, hoping to be able to expand bed search Admission and Anticipated Discharge Date Admission Date: October 27, 2021 Supervising Physician Co-Signing Physician Notes PA Supervision Note: I did not personally see or examine the patient today, but I verified all rivero points of PATRICIA Justice's assessment and plan with the following exceptions/additions: Noted that her Percocet was discontinued at the standard 14-day mat after it was ordered. I noted that the patient has only really been taking 1 tablet of Percocet once or twice daily-Will reorder Percocet 10/325 Mg p.o. every 12 hours scheduled rather than every 8 hours scheduled Subjective Eval this morning, no new issues Cognition at baseline. Took pills this morning without issue. However, of note, RN did find and lock up vape pen, unclear contents or who brought this in for patient. Review of Systems Review of Systems: All systems reviewed & are unremarkable except as noted in HPI & below Physical Exam Physical Exam: General: WD/WN 81yo female sitting in bed, watching TV, babydoll in bed with patient, NAD HEENT: head normocephalic, atraumatic, mmm, trachea midline without deviation Resp: CTAB, no w/c/r, on 2 L NC CV: RRR, +murmur, no calf tenderness, no pitting edema, pulses palapable GI: +BS, soft nontender MSK/Neuro: moves all extremities, no focal deficit Psych alert to person/place, wanting to go home, cooperative Skin: warm, dry Results & Data Results & Data ([facility]) Vital Signs (Past 12 Hours) Vital Signs Temp Pulse Resp BP Pulse Ox O2 Del Method 11/11/21 21:32 36.6 C 71 16 120/71 99 Nasal Cannula PG Care Time/CCT Total # of Minutes Spent Total Time Spent with Patient: Total time spent is greater than 50% in coordination of care (as documented) at patient's floor/unit and/or counseling patient: Coding Level of Care Code 09429 Subseq Hosp Care Lvl 1 Diagnoses Fall W19.XXXA Encounter type: initial encounter UTI (urinary tract infection) N39.0 Depression F32.A Elevated troponin R77.8 CAD (coronary artery disease) I25.10 Associated angina: unspecified whether angina present Coronary Disease-Associated Artery/Lesion type: unspecified vessel or lesion type [place] vs. transplanted heart: unspecified whether [place] or transplanted heart Dementia F03.91 Dementia behavioral disturbance: with behavioral disturbance Dementia type: unspecified type Chronic respiratory failure with hypoxia and hypercapnia J96.11; J96.12 (1) CAD (coronary artery disease) Associated angina: unspecified whether angina present Coronary Disease- Associated Artery/Lesion type: unspecified vessel or lesion type [place] vs. transplanted heart: unspecified whether [place] or transplanted heart Qualified Code(s): I25.10 - Atherosclerotic heart disease of [place] coronary artery without angina pectoris (2) Dementia Dementia behavioral disturbance: with behavioral disturbance Dementia type: unspecified type Qualified Code(s): F03.91 - Unspecified dementia with behavioral disturbance (3) Fall Encounter type: initial encounter Qualified Code(s): W19.XXXA - Unspecified fall, initial encounter
[2021-11-12] MEDS: POTASSIUM CHLORIDE CRTAB 20 MEQ TABCR PO SCH (15:04)
[2021-11-12] MEDS: ATORVASTATIN 40 MG TAB PO SCH (15:04)
[2021-11-13] MEDS: LIDOCAINE 5% 1 PATCH TD SCH ×2 (00:05→20:31)
[2021-11-13] MEDS: lamoTRIgine 100 MG TAB PO SCH ×3 (00:06→20:31)
[2021-11-13] MEDS: DOCUSATE SODIUM/SENNA 50/8.6MG TAB PO SCH ×2 (00:07→20:31)
[2021-11-13] MEDS: LORazepam 0.5 MG TAB PO SCH ×2 (00:48→20:31)
[2021-11-13] MEDS: oxyCODONE/ACETAMINOPHEN 10-325 TAB PO SCH ×3 (00:49→20:31)
[2021-11-13] MEDS: QUEtiapine FUMARATE 25 MG TABLET PO SCH ×2 (00:49→20:30)
[2021-11-13] MEDS: PANTOprazole 40 MG TAB PO SCH ×3 (00:49→20:31)
--- NOTE | 2021-11-13 09:30 | Hospitalist Progress Note ---
Date of Service November 13, 2021 Assessment & Plan (1) Fall: Plan: Admitted after a fall (with history of falls/weakness). Imaging with minimal chronic superior endplate compression deformity of T4. Also has multilevel degenerative disc disease. Needing placement, prior in [place] but brought home after few months at patient request and rohit had been taking care of her 24/7 x ~5 weeks Also with UTI --> completed course abx inpatient B12 wnl TSH wnl earlier this year Fall precautions Pain control --controlled with Tylenol and lidocaine patch, * Percocet scheduled-has a long history of chronic neck and back pain for which she used to receive injections and see pain management * -daughter also reports pt takes scheduled percocet but is okay with decreasing dose down every 8 hours-now decreased to q12 hours as not requiring it that often * patient denies any increased pain/need for additional pain medication PT/OT -- rec SNF awaiting placement -- may need to consider additional facilities (daughter gave 6, CM following) (2) UTI (urinary tract infection): Plan: Abnormal UA on arrival, urine culture growing ESBL E. coli sensitive to Augmentin, ertapenem, meropenem, nitrofurantoin, Zosyn, and Bactrim Did have a low grade fever here on 2nd hospital day but no signs of sepsis, flank pain, etc. so could be considered uncomplicated UTI Given Rocephin 10/28 x 3 doses, then switched to IV Ertapenem 10/30 with culture results Discussed with pharmacy given ESBL Ecoli, despite sensitivities to Augmentin/Bactrim, pharmacy rec Macrobid or fosfomycin as more known about effectiveness Given additional dose Ertapenem 10/31 and switched to Nitro PO BID and completed 7 day course inpatient Repeat cx more than 3 types, all moderate counts mixed skin aida Denies any urinary sx currently (3) Depression: Plan: In speaking with the patient's daughter on the phone, she has great concerns about the patient having significant depression. She reports that the patient has become withdrawn even from her favorite family members that she usually speaks to. Is refusing to take phone calls from people. Has been eating very minimally and has lost weight as per daughter. She has also made statements that she wishes her life was over, but is not threatening to harm herself. Daughter is requesting consultation with a therapist or a sole buffer and is interested in perhaps starting her mother on an additional or different antidepressant. -Remeron would be a good option to stimulate appetite, help with depression, and help with insomnia from which the patient suffers-defer to psychiatry for choice of drug Consulted assistant surveyor as per daughter's request -- confirmed has visited more than once -Consult psychiatry at daughter's request --reviewed consult, noted some recommendations but no changes made --> further discussions with daughter in days past and wanted increased Paxil. Increased to 50mg daily --> continue at d/c, also continue seroquel 50mg HS mood appears stable currently consider remeron if needed, seems in decent spirits watching mass 11/13 (4) Elevated troponin: Plan: Noted to be 16.6 on ED labs , trended and peaked at 20 and back down the morning after admission h/o CABG, CAD s/p [place] 2004 s/p 2 Intracoronary Stents followed by CABG x 2 Vessels, Ischemic Cardiomyopathy s/p AICD, Chronic Systolic CHF No chest pain or ECG changes, likely due to demand ischemia continue ASA her metoprolol is no longer on her list, not sure why stopped since last admission-daughter is not sure either but is okay with restarting it HAS BEEN CONTINUED ISSUE WITH THIS MEDICATION IN PAST BEING DISCONTINUED * Restarted Toprol-XL 25 mg p.o. once daily but had SBP<100 so reduced dose to 12.5mg daily * BP currently 120/71 , could consider increasing/parameters but will continue 12.5mg daily for now (had episode of wide complex tachycardia in February when off this medication). Had history of paroxysmal afib (has watchman device) continue statin (5) CAD (coronary artery disease): Plan: HTN, CAD (w h/o CABG), PAF (s/p watchman) -Continue aspirin and metoprolol, statin (6) Dementia: Plan: -continue Seroquel, lamictal, and ativan at bedtime as per daughter for sleep (7) Chronic respiratory failure with hypoxia and hypercapnia: Plan: D/t COPD -Baseline O2 is 3L NC, currently stable on 2L NC here 99% -Continue home breathing treatments with prn albuterol for wheezing neb evening 11/11 Plan continued inpatient stay awaiting placement CM following, hoping to be able to expand bed search Admission and Anticipated Discharge Date Admission Date: October 27, 2021 Supervising Physician Co-Signing Physician Notes PA Supervision Note: I did not personally see or examine the patient today, but I verified all rivero points of PATRICIA Justice's assessment and plan with the following exceptions/additions: None Subjective Eval this morning, sitting in bed watching mass Not much appetite for breakfast but only so much eggs she can handle she states, will see if more appetite for lunch. Reports decent appetite otherwise. States feeling stronger. No shortness of breath, chest pain or other issues. Review of Systems Review of Systems: All systems reviewed & are unremarkable except as noted in HPI & below Physical Exam Physical Exam: General: WD/WN 81yo female sitting in bed, watching TV, babydoll in bed with patient, NAD HEENT: head normocephalic, atraumatic, mmm, trachea midline without deviation Resp: CTAB, no w/c/r, on 2 L NC CV: RRR, +murmur, no calf tenderness, no pitting edema, pulses palpable GI: +BS, soft nontender MSK/Neuro: moves all extremities, no focal deficit Psych alert to person/place, wanting to go home, cooperative Skin: warm, dry PG Care Time/CCT Total # of Minutes Spent Total Time Spent with Patient: Total time spent is greater than 50% in coordination of care (as documented) at patient's floor/unit and/or counseling patient: Coding Level of Care Code 95693 Subseq Hosp Care Lvl 1 Diagnoses Fall W19.XXXA Encounter type: initial encounter UTI (urinary tract infection) N39.0 Depression F32.A Elevated troponin R77.8 CAD (coronary artery disease) I25.10 Associated angina: unspecified whether angina present Coronary Disease-Associated Artery/Lesion type: unspecified vessel or lesion type [place] vs. transplanted heart: unspecified whether [place] or transplanted heart Dementia F03.91 Dementia behavioral disturbance: with behavioral disturbance Dementia type: unspecified type Chronic respiratory failure with hypoxia and hypercapnia J96.11; J96.12 (1) CAD (coronary artery disease) Associated angina: unspecified whether angina present Coronary Disease- Associated Artery/Lesion type: unspecified vessel or lesion type [place] vs. transplanted heart: unspecified whether [place] or transplanted heart Qualified Code(s): I25.10 - Atherosclerotic heart disease of [place] coronary artery without angina pectoris (2) Dementia Dementia behavioral disturbance: with behavioral disturbance Dementia type: unspecified type Qualified Code(s): F03.91 - Unspecified dementia with behavioral disturbance (3) Fall Encounter type: initial encounter Qualified Code(s): W19.XXXA - Unspecified fall, initial encounter
[2021-11-13] MEDS: FLUTICASONE/VILANTEROL 100/25MCG 14 PUFFS/INHALER INH SCH (09:51)
[2021-11-13] MEDS: SUCRALFATE 1 GM TAB PO SCH ×3 (09:52→17:21)
[2021-11-13] MEDS: ASPIRIN 81 MG ECTAB PO SCH (09:53)
[2021-11-13] MEDS: FUROSEMIDE 40 MG TAB PO SCH (09:53)
[2021-11-13] MEDS: PARoxetine HCl CONTROLLED REL 12.5 MG TABCR PO SCH (09:54)
[2021-11-13] MEDS: METOPROLOL SUCC 25MG EXT REL TAB PO SCH (09:54)
[2021-11-13] MEDS: POTASSIUM CHLORIDE CRTAB 20 MEQ TABCR PO SCH (17:21)
[2021-11-13] MEDS: ATORVASTATIN 40 MG TAB PO SCH (17:21)
[2021-11-14] MEDS: lamoTRIgine 100 MG TAB PO SCH ×2 (08:39→20:40)
[2021-11-14] MEDS: oxyCODONE/ACETAMINOPHEN 10-325 TAB PO SCH ×2 (08:39→20:41)
[2021-11-14] MEDS: ASPIRIN 81 MG ECTAB PO SCH (08:40)
[2021-11-14] MEDS: METOPROLOL SUCC 25MG EXT REL TAB PO SCH (08:40)
[2021-11-14] MEDS: FUROSEMIDE 40 MG TAB PO SCH (08:40)
[2021-11-14] MEDS: PANTOprazole 40 MG TAB PO SCH ×2 (08:40→20:40)
[2021-11-14] MEDS: SUCRALFATE 1 GM TAB PO SCH ×3 (08:41→15:59)
[2021-11-14] MEDS: PARoxetine HCl CONTROLLED REL 12.5 MG TABCR PO SCH (08:41)
[2021-11-14] MEDS: FLUTICASONE/VILANTEROL 100/25MCG 14 PUFFS/INHALER INH SCH (08:41)
--- NOTE | 2021-11-14 09:09 | Hospitalist Progress Note ---
Date of Service November 14, 2021 Assessment & Plan (1) Fall: Plan: Admitted after a fall (with history of falls/weakness). Imaging with minimal chronic superior endplate compression deformity of T4. Also has multilevel degenerative disc disease. Needing placement, prior in [place] but brought home after few months at patient request and rohit had been taking care of her 24/7 x ~5 weeks Also with UTI --> completed course abx inpatient B12 wnl TSH wnl earlier this year Fall precautions Pain control --controlled with Tylenol and lidocaine patch, * Percocet scheduled-has a long history of chronic neck and back pain for which she used to receive injections and see pain management * -daughter also reports pt takes scheduled percocet but is okay with decreasing dose down every 8 hours-now decreased to q12 hours as not requiring it that often * patient denies any increased pain/need for additional pain medication PT/OT -- rec SNF awaiting placement -- may need to consider additional facilities (daughter gave 6, CM following) CM following and need to broaden search. CM to f/u with her tomorrow (2) UTI (urinary tract infection): Plan: Abnormal UA on arrival, urine culture growing ESBL E. coli sensitive to Augmentin, ertapenem, meropenem, nitrofurantoin, Zosyn, and Bactrim Did have a low grade fever here on 2nd hospital day but no signs of sepsis, flank pain, etc. so could be considered uncomplicated UTI Given Rocephin 10/28 x 3 doses, then switched to IV Ertapenem 10/30 with culture results Discussed with pharmacy given ESBL Ecoli, despite sensitivities to Augmentin/Bactrim, pharmacy rec Macrobid or fosfomycin as more known about effectiveness Given additional dose Ertapenem 10/31 and switched to Nitro PO BID and completed 7 day course inpatient Repeat cx more than 3 types, all moderate counts mixed skin aida Denies any urinary sx currently (3) Depression: Plan: In speaking with the patient's daughter on the phone, she has great concerns about the patient having significant depression. She reports that the patient has become withdrawn even from her favorite family members that she usually speaks to. Is refusing to take phone calls from people. Has been eating very minimally and has lost weight as per daughter. She has also made statements that she wishes her life was over, but is not threatening to harm herself. Daughter is requesting consultation with a therapist or a acupressurist and is interested in perhaps starting her mother on an additional or different antidepressant. -Remeron would be a good option to stimulate appetite, help with depression, and help with insomnia from which the patient suffers-defer to psychiatry for choice of drug Consulted forestry extension specialist as per daughter's request -- confirmed has visited more than once -Consult psychiatry at daughter's request --reviewed consult, noted some recommendations but no changes made --> further discussions with daughter in days past and wanted increased Paxil. Increased to 50mg daily --> continue at d/c, also continue seroquel 50mg HS mood appears stable currently consider remeron if needed, seems in decent spirits watching mass 11/13, stable 11/14 after visiting in [place] with her daughter (4) Elevated troponin: Plan: Noted to be 16.6 on ED labs , trended and peaked at 20 and back down the morning after admission h/o CABG, CAD s/p [place] 2004 s/p 2 Intracoronary Stents followed by CABG x 2 Vessels, Ischemic Cardiomyopathy s/p AICD, Chronic Systolic CHF No chest pain or ECG changes, likely due to demand ischemia continue ASA her metoprolol is no longer on her list, not sure why stopped since last ad mission-daughter is not sure either but is okay with restarting it HAS BEEN CONTINUED ISSUE WITH THIS MEDICATION IN PAST BEING DISCONTINUED * Restarted Toprol-XL 25 mg p.o. once daily but had SBP<100 so reduced dose to 12.5mg daily * BP currently 120/71 , could consider increasing/parameters but will continue 12.5mg daily for now (had episode of wide complex tachycardia in February when off this medication). Had history of paroxysmal afib (has watchman device) continue statin (5) CAD (coronary artery disease): Plan: HTN, CAD (w h/o CABG), PAF (s/p watchman) -Continue aspirin and metoprolol, statin (6) Dementia: Plan: -continue Seroquel, lamictal, and ativan at bedtime as per daughter for sleep (7) Chronic respiratory failure with hypoxia and hypercapnia: Plan: D/t COPD -Baseline O2 is 3L NC, currently stable on 2L NC here 99% -Continue home breathing treatments with prn albuterol for wheezing neb evening 11/11 Plan continued inpatient stay awaiting placement CM following, hoping to be able to expand bed search tomorrow in discusssions with her daughter Admission and Anticipated Discharge Date Admission Date: October 27, 2021 Subjective eval this morning, watching TV. went to [place] with daughter yesterday, enjoyed this continued inpatient stay waiting placement given diamox x 1 for CO2 retention, likely from O2 use. Does not endorse any shortness ofbreath or difficulty breathing. Review of Systems Review of Systems: All systems reviewed & are unremarkable except as noted in HPI & below Physical Exam Physical Exam: General: WD/WN 81yo female sitting in bed, watching TV, babydoll in bed with patient, NAD HEENT: head normocephalic, atraumatic, mmm, trachea midline without deviation Resp: CTAB, no w/c/r, on 2 L NC CV: RRR, +murmur, no calf tenderness, no pitting edema, pulses palpable GI: +BS, soft nontender MSK/Neuro: moves all extremities, no focal deficit Psych alert to person/place, wanting to go home, cooperative Skin: warm, dry Results & Data Results & [facility] ([facility]) Vital Signs (Past 12 Hours) Vital Signs Temp Pulse Resp BP Pulse Ox O2 Del Method O2 Flow Rate 11/14/21 07:39 36.7 C 65 16 107/66 94 Nasal Cannula 2.0 PG Care Time/CCT Total # of Minutes Spent Total Time Spent with Patient: Total time spent is greater than 50% in coordination of care (as documented) at patient's floor/unit and/or counseling patient: Coding Level of Care Code 60845 Subseq Hosp Care Lvl 1 Diagnoses Fall W19.XXXA Encounter type: initial encounter UTI (urinary tract infection) N39.0 Depression F32.A Elevated troponin R77.8 CAD (coronary artery disease) I25.10 Associated angina: unspecified whether angina present Coronary Disease-Associated Artery/Lesion type: unspecified vessel or lesion type [place] vs. transplanted heart: unspecified whether [place] or transplanted heart Dementia F03.91 Dementia behavioral disturbance: with behavioral disturbance Dementia type: unspecified type Chronic respiratory failure with hypoxia and hypercapnia J96.11; J96.12 (1) CAD (coronary artery disease) Associated angina: unspecified whether angina present Coronary Disease- Associated Artery/Lesion type: unspecified vessel or lesion type [place] vs. transplanted heart: unspecified whether [place] or transplanted heart Qualified Code(s): I25.10 - Atherosclerotic heart disease of [place] coronary artery without angina pectoris (2) Dementia Dementia behavioral disturbance: with behavioral disturbance Dementia type: unspecified type Qualified Code(s): F03.91 - Unspecified dementia with behavioral disturbance (3) Fall Encounter type: initial encounter Qualified Code(s): W19.XXXA - Unspecified fall, initial encounter
[2021-11-14] MEDS ORDERED: acetaZOLAMIDE 250 MG TAB PO ONE (13:00)
[2021-11-14] MEDS: ATORVASTATIN 40 MG TAB PO SCH (15:58)
[2021-11-14] MEDS: POTASSIUM CHLORIDE CRTAB 20 MEQ TABCR PO SCH (15:59)
[2021-11-14] MEDS: LIDOCAINE 5% 1 PATCH TD SCH (20:40)
[2021-11-14] MEDS: DOCUSATE SODIUM/SENNA 50/8.6MG TAB PO SCH (20:41)
[2021-11-14] MEDS: QUEtiapine FUMARATE 25 MG TABLET PO SCH (20:41)
[2021-11-14] MEDS: LORazepam 0.5 MG TAB PO SCH (20:47)
[2021-11-15] MEDS: PANTOprazole 40 MG TAB PO SCH ×2 (08:57→20:50)
[2021-11-15] MEDS: FUROSEMIDE 40 MG TAB PO SCH (08:57)
[2021-11-15] MEDS: FLUTICASONE/VILANTEROL 100/25MCG 14 PUFFS/INHALER INH SCH (08:57)
[2021-11-15] MEDS: ASPIRIN 81 MG ECTAB PO SCH (08:57)
[2021-11-15] MEDS: PARoxetine HCl CONTROLLED REL 12.5 MG TABCR PO SCH (08:57)
[2021-11-15] MEDS: METOPROLOL SUCC 25MG EXT REL TAB PO SCH (08:57)
[2021-11-15] MEDS: oxyCODONE/ACETAMINOPHEN 10-325 TAB PO SCH ×2 (08:57→20:50)
[2021-11-15] MEDS: SUCRALFATE 1 GM TAB PO SCH ×3 (08:57→17:17)
[2021-11-15] MEDS: lamoTRIgine 100 MG TAB PO SCH ×2 (08:57→20:50)
--- NOTE | 2021-11-15 10:34 | Hospitalist Progress Note ---
Date of Service November 15, 2021 Assessment & Plan (1) Fall: Plan: Admitted after a fall (with history of falls/weakness). Imaging with minimal chronic superior endplate compression deformity of T4. Also has multilevel degenerative disc disease. Needing placement, prior in [place] but brought home after few months at patient request and [facility]hit had been taking care of her 24/7 x ~5 weeks Also with UTI --> completed course abx inpatient B12 wnl TSH wnl earlier this year Fall precautions Pain control --controlled with Tylenol and lidocaine patch, * Percocet scheduled-has a long history of chronic neck and back pain for which she used to receive injections and see pain management * -daughter also reports pt takes scheduled percocet but is okay with decreasing dose down every 8 hours-now decreased to q12 hours as not requiring it that often * patient denies any increased pain/need for additional pain medication PT/OT -- rec SNF awaiting placement -- may need to consider additional facilities (daughter gave 6, CM following) CM following and need to broaden search. CM to f/u with her tomorrow (2) UTI (urinary tract infection): Plan: Abnormal UA on arrival, urine culture growing ESBL E. coli sensitive to Augmentin, ertapenem, meropenem, nitrofurantoin, Zosyn, and Bactrim Did have a low grade fever here on 2nd hospital day but no signs of sepsis, flank pain, etc. so could be considered uncomplicated UTI Given Rocephin 10/28 x 3 doses, then switched to IV Ertapenem 10/30 with culture results Discussed with pharmacy given ESBL Ecoli, despite sensitivities to Augmentin/Bactrim, pharmacy rec Macrobid or fosfomycin as more known about effectiveness Given additional dose Ertapenem 10/31 and switched to Nitro PO BID and completed 7 day course inpatient Repeat cx more than 3 types, all moderate counts mixed skin aida Denies any urinary sx currently (3) Depression: Plan: In speaking with the patient's daughter on the phone, she has great concerns about the patient having significant depression. She reports that the patient has become withdrawn even from her favorite family members that she usually spea ks to. Is refusing to take phone calls from people. Has been eating very minimally and has lost weight as per daughter. She has also made statements that she wishes her life was over, but is not threatening to harm herself. Daughter is requesting consultation with a therapist or a angiography nurse and is interested in perhaps starting her mother on an additional or different antidepressant. -Remeron would be a good option to stimulate appetite, help with depression, and help with insomnia from which the patient suffers-defer to psychiatry for choice of drug Consulted district representative as per daughter's request -- confirmed has visited more than once -Consult psychiatry at daughter's request --reviewed consult, noted some recommendations but no changes made --> further discussions with daughter in days past and wanted increased Paxil. Increased to 50mg daily --> continue at d/c, also continue seroquel 50mg HS mood appears stable currently consider remeron if needed, seems in decent spirits watching mass 11/13, stable 11/14 after visiting in [place] with her daughter Taken nicotine vape pen day prior, irritable with staff 11/14, no issues today. Will order nicotine patch Visit in [place] as able with family while awaiting placement (4) Elevated troponin: Plan: Noted to be 16.6 on ED labs , trended and peaked at 20 and back down the morning after admission h/o CABG, CAD s/p [place] 2004 s/p 2 Intracoronary Stents followed by CABG x 2 Vessels, Ischemic Cardiomyopathy s/p AICD, Chronic Systolic CHF No chest pain or ECG changes, likely due to demand ischemia continue ASA her metoprolol is no longer on her list, not sure why stopped since last admission-daughter is not sure either but is okay with restarting it HAS BEEN CONTINUED ISSUE WITH THIS MEDICATION IN PAST BEING DISCONTINUED * Restarted Toprol-XL 25 mg p.o. once daily but had SBP<100 so reduced dose to 12.5mg daily * BP currently 120/71 , could consider increasing/parameters but will continue 12.5mg daily for now (had episode of wide complex tachycardia in February when off this medication). Had history of paroxysmal afib (has watchman device) continue statin (5) CAD (coronary artery disease): Plan: HTN, CAD (w h/o CABG), PAF (s/p watchman) -Continue aspirin and metoprolol, statin (6) Dementia: Plan: -continue Seroquel, lamictal, and ativan at bedtime as per daughter for sleep (7) Chronic respiratory failure with hypoxia and hypercapnia: Plan: D/t COPD -Baseline O2 is 3L NC, currently stable on 2L NC here 99% -Continue home breathing treatments with prn albuterol for wheezing neb evening 11/11 Takes her O2 off at times, no acute distress Given 1x dose diamox for CO2 retention 11/14 Plan continued inpatient stay awaiting placement CM following, hoping to be able to expand bed search tomorrow in discussions with her daughter Admission and Anticipated Discharge Date Admission Date: October 27, 2021 Subjective Patient evaluated this morning. Watching the [email or web address] on TV, states "I love the [employer]" Had been combative with staff/throwing water yesterday Of note did have her vape pen taken away, no nicotine patch. Will ordered. Took her O2 off but does not appear to be in distress. Patient denied any issues, enjoyed her trip in [place] the other day. Discussed if daughter comes in its ok to repeat while awaiting placement. Denies need for anything. Review of Systems Review of Systems: All systems reviewed & are unremarkable except as noted in HPI & below Physical Exam Physical Exam: General: WD/WN 81yo female sitting in bed, watching TV, babydoll in bed with patient, NAD HEENT: head normocephalic, atraumatic, mmm, trachea midline without deviation Resp: CTAB, no w/c/r, on room CV: RRR, +murmur, no calf tenderness, no pitting edema, pulses palpable GI: +BS, soft nontender MSK/Neuro: moves all extremities, no focal deficit Psych alert to person/place, wanting to go home, cooperative Skin: warm, dry Results & Data Results & Data ([facility]) Vital Signs (Past 12 Hours) Vital Signs Temp Pulse Resp BP Pulse Ox O2 Del Method O2 Flow Rate 11/15/21 09:52 Nasal Cannula 2 11/15/21 07:45 36.7 C 63 16 99/60 L 90 Room Air PG Care Time/CCT Total # of Minutes Spent Total Time Spent with Patient: Total time spent is greater than 50% in coordination of care (as documented) at patient's floor/unit and/or counseling patient: Coding Level of Care Code 97338 Subseq Hosp Care Lvl 1 Diagnoses Fall W19.XXXA Encounter type: initial encounter UTI (urinary tract infection) N39.0 Depression F32.A Elevated troponin R77.8 CAD (coronary artery disease) I25.10 Associated angina: unspecified whether angina present Coronary Disease-Associated Artery/Lesion type: unspecified vessel or lesion type [place] vs. transplanted heart: unspecified whether [place] or transplanted heart Dementia F03.91 Dementia behavioral disturbance: with behavioral disturbance Dementia type: unspecified type Chronic respiratory failure with hypoxia and hypercapnia J96.11; J96.12 (1) CAD (coronary artery disease) Associated angina: unspecified whether angina present Coronary Disease- Associated Artery/Lesion type: unspecified vessel or lesion type [place] vs. transplanted heart: unspecified whether [place] or transplanted heart Qualified Code(s): I25.10 - Atherosclerotic heart disease of [place] coronary artery without angina pectoris (2) Dementia Dementia behavioral disturbance: with behavioral disturbance Dementia type: unspecified type Qualified Code(s): F03.91 - Unspecified dementia with behavioral disturbance (3) Fall Encounter type: initial encounter Qualified Code(s): W19.XXXA - Unspecified fall, initial encounter
[2021-11-15] MEDS: NICOTINE 14 MG/24 HR PATCH TD SCH (11:31)
[2021-11-15] MEDS: POTASSIUM CHLORIDE CRTAB 20 MEQ TABCR PO SCH (17:17)
[2021-11-15] MEDS: ATORVASTATIN 40 MG TAB PO SCH (17:17)
[2021-11-15] MEDS: LIDOCAINE 5% 1 PATCH TD SCH (20:49)
[2021-11-15] MEDS: LORazepam 0.5 MG TAB PO SCH (20:50)
[2021-11-15] MEDS: QUEtiapine FUMARATE 25 MG TABLET PO SCH (20:50)
[2021-11-15] MEDS: DOCUSATE SODIUM/SENNA 50/8.6MG TAB PO SCH (20:50)
[2021-11-16] MEDS: METOPROLOL SUCC 25MG EXT REL TAB PO SCH (09:37)
[2021-11-16] MEDS: PARoxetine HCl CONTROLLED REL 12.5 MG TABCR PO SCH (09:38)
[2021-11-16] MEDS: lamoTRIgine 100 MG TAB PO SCH ×2 (09:38→22:42)
[2021-11-16] MEDS: FUROSEMIDE 40 MG TAB PO SCH (09:39)
[2021-11-16] MEDS: SUCRALFATE 1 GM TAB PO SCH ×3 (09:39→16:03)
[2021-11-16] MEDS: PANTOprazole 40 MG TAB PO SCH ×2 (09:39→22:42)
[2021-11-16] MEDS: ASPIRIN 81 MG ECTAB PO SCH (09:40)
[2021-11-16] MEDS: FLUTICASONE/VILANTEROL 100/25MCG 14 PUFFS/INHALER INH SCH (09:40)
[2021-11-16] MEDS: NICOTINE 14 MG/24 HR PATCH TD SCH (09:41)
[2021-11-16] MEDS: oxyCODONE/ACETAMINOPHEN 10-325 TAB PO SCH ×2 (09:44→22:47)
--- NOTE | 2021-11-16 11:32 | Hospitalist Progress Note ---
Date of Service November 16, 2021 Assessment & Plan (1) Fall: Plan: Admitted after a fall (with history of falls/weakness). Imaging with minimal chronic superior endplate compression deformity of T4. Also has multilevel degenerative disc disease. - Pain control with Tylenol and lidocaine patch, * Percocet scheduled-has a long history of chronic neck and back pain for which she used to receive injections and see pain management * -daughter also reports pt takes scheduled percocet but is okay with decreasing dose down every 8 hours-now decreased to q12 hours as not requiring it that often * patient denies any increased pain/need for additional pain medication - PT/OT -- rec SNF - Awaiting placement -- may need to consider additional facilities (daughter gave 6, CM following) (2) UTI (urinary tract infection): Plan: Abnormal UA on arrival, urine culture growing ESBL E. coli sensitive to Augmentin, ertapenem, meropenem, nitrofurantoin, Zosyn, and Bactrim Did have a low grade fever here on 2nd hospital day but no signs of sepsis, flank pain, etc. so could be considered uncomplicated UTI Given Rocephin 10/28 x 3 doses, then switched to IV Ertapenem 10/30 with culture results Discussed with pharmacy given ESBL Ecoli, despite sensitivities to Augmentin/Bactrim, pharmacy rec Macrobid or fosfomycin as more known about effectiveness Given additional dose Ertapenem 10/31 and switched to Nitro PO BID and completed 7 day course inpatient Repeat cx more than 3 types, all moderate counts mixed skin aida (3) Depression: Plan: In speaking with the patient's daughter on the phone, she has great concerns about the patient having significant depression. She reports that the patient has become withdrawn even from her favorite family members that she usually speaks to. Is refusing to take phone calls from people. Has been eating very minimally and has lost weight as per daughter. She has also made statements that she wishes her life was over, but is not threatening to harm herself. Daughter is requesting consultation with a therapist or a client professional and is interested in perhaps starting her mother on an additional or different anti- depressant. - Remeron would be a good option to stimulate appetite, help with depression, and help with insomnia from which the patient suffers-defer to psychiatry for choice of drug - Consulted sales consultant residential manager as per daughter's request -- confirmed has visited more than once - Consult psychiatry at daughter's request - reviewed consult, noted some recommendations but no changes made - further discussion w/ daughter requested Paxil be increased. * Increased to 50mg daily --> continue at d/c, also continue Seroquel 50mg HS. Mood appears stable currently. - Could consider Remeron if needed (4) CAD (coronary artery disease): Plan: HTN, CAD (w h/o CABG), PAF (s/p watchman) - Continue aspirin and metoprolol, statin (5) Dementia: Plan: - continue Seroquel, lamictal, and ativan at bedtime as per daughter for sleep (6) Chronic respiratory failure with hypoxia and hypercapnia: Plan: D/t COPD - Baseline O2 is 3L NC, currently stable on 2L NC here 99% - Changed Duonebs to scheduled and can also utilize q4h prn - Obtain CXR d/t scattered wheezes on exam and cough Plan continued inpatient stay awaiting placement CM following, hoping to be able to expand bed search tomorrow in discussions with her daughter Admission and Anticipated Discharge Date Admission Date: October 27, 2021 Subjective Patient was seen on rounds this morning. She is currently pleasantly confused although has been combative at times. Mild cough noted during my visit. She has no other complaints. Review of Systems Review of Systems: Accurate ROS is limited given her dementia Physical Exam Physical Exam: GENERAL: 81 yo Well-developed, well-nourished WF. NAD. LUNGS: Nonlabored. Expiratory wheezes appreciated throughout. CARDIOVASCULAR: Regular rate and rhythm. ABDOMEN: Soft, non-tender and non-distended. BS normoactive x 4 quad. EXTREMITIES: No edema. Non-tender. Peripheral pulses +2/4. NEUROLOGIC: A&O x1 PSYCHIATRIC: Cooperative. Appropriate mood and affect. SKIN: Warm, dry, intact. No rashes or lesions. Results & Data Results & Data ([facility]) Vital Signs (Past 12 Hours) Vital Signs Temp Pulse Resp BP Pulse Ox O2 Del Method 11/16/21 07:22 36.3 C L 64 16 107/68 98 Room Air PG Care Time/CCT Total # of Minutes Spent Total Time Spent with Patient: Total time spent is greater than 50% in coordination of care (as documented) at patient's floor/unit and/or counseling patient: Coding Level of Care Code 84475 Subseq Hosp Care Lvl 2 Diagnoses Fall W19.XXXA Encounter type: initial encounter UTI (urinary tract infection) N39.0 Depression F32.A CAD (coronary artery disease) I25.10 Associated angina: unspecified whether angina present Coronary Disease-Associated Artery/Lesion type: unspecified vessel or lesion type [place] vs. transplanted heart: unspecified whether [place] or transplanted heart Dementia F03.91 Dementia behavioral disturbance: with behavioral disturbance Dementia type: unspecified type Chronic respiratory failure with hypoxia and hypercapnia J96.11; J96.12 (1) Fall Encounter type: initial encounter Qualified Code(s): W19.XXXA - Unspecified fall, initial encounter (2) CAD (coronary artery disease) Associated angina: unspecified whether angina present Coronary Disease- Associated Artery/Lesion type: unspecified vessel or lesion type [place] vs. transplanted heart: unspecified whether [place] or transplanted heart Qualified Code(s): I25.10 - Atherosclerotic heart disease of [place] coronary artery without angina pectoris (3) Dementia Dementia behavioral disturbance: with behavioral disturbance Dementia type: unspecified type Qualified Code(s): F03.91 - Unspecified dementia with behavioral disturbance
[2021-11-16] MEDS: ALBUTEROL 0.5% NEB SOLN 2.5 MG/0.5 ML VIAL NEB SCH ×2 (12:43→20:32)
[2021-11-16] MEDS: POTASSIUM CHLORIDE CRTAB 20 MEQ TABCR PO SCH (14:46)
[2021-11-16] MEDS: ATORVASTATIN 40 MG TAB PO SCH (14:46)
[2021-11-16] MEDS: LIDOCAINE 5% 1 PATCH TD SCH (22:42)
[2021-11-16] MEDS: DOCUSATE SODIUM/SENNA 50/8.6MG TAB PO SCH (22:42)
[2021-11-16] MEDS: QUEtiapine FUMARATE 25 MG TABLET PO SCH (22:42)
[2021-11-16] MEDS: LORazepam 0.5 MG TAB PO SCH (22:47)
[2021-11-17] MEDS: ALBUTEROL 0.5% NEB SOLN 2.5 MG/0.5 ML VIAL NEB SCH ×2 (00:21→07:32)
[2021-11-17] MEDS: SUCRALFATE 1 GM TAB PO SCH ×3 (08:59→16:21)
[2021-11-17] MEDS: oxyCODONE/ACETAMINOPHEN 10-325 TAB PO SCH ×2 (08:59→21:32)
[2021-11-17] MEDS: FLUTICASONE/VILANTEROL 100/25MCG 14 PUFFS/INHALER INH SCH (09:00)
[2021-11-17] MEDS: PARoxetine HCl CONTROLLED REL 12.5 MG TABCR PO SCH (09:06)
[2021-11-17] MEDS: METOPROLOL SUCC 25MG EXT REL TAB PO SCH (09:06)
[2021-11-17] MEDS: PANTOprazole 40 MG TAB PO SCH ×2 (09:07→21:31)
[2021-11-17] MEDS: FUROSEMIDE 40 MG TAB PO SCH (09:07)
[2021-11-17] MEDS: NICOTINE 14 MG/24 HR PATCH TD SCH (09:08)
[2021-11-17] MEDS: ASPIRIN 81 MG ECTAB PO SCH (09:08)
[2021-11-17] MEDS: lamoTRIgine 100 MG TAB PO SCH ×2 (09:08→21:36)
[2021-11-17] MEDS ORDERED: ALBUTEROL 0.5% NEB SOLN 2.5 MG/0.5 ML VIAL NEB PRN (10:33)
--- NOTE | 2021-11-17 10:38 | Hospitalist Progress Note ---
Date of Service November 17, 2021 Assessment & Plan (1) Fall: Plan: Admitted after a fall (with history of falls/weakness). Imaging with minimal chronic superior endplate compression deformity of T4. Also has multilevel degenerative disc disease. - Pain control with Tylenol and lidocaine patch, * Percocet scheduled-has a long history of chronic neck and back pain for which she used to receive injections and see pain management * -daughter also reports pt takes scheduled percocet but is okay with decreasing dose down every 8 hours-now decreased to q12 hours as not requiring it that often * patient denies any increased pain/need for additional pain medication - PT/OT -- rec SNF - Awaiting placement -- may need to consider additional facilities (daughter gave 6, CM following) (2) Chronic respiratory failure with hypoxia and hypercapnia: Plan: D/t COPD - Baseline O2 is 3L NC, currently stable on 2L NC here 99% - Would prefer to obtain CXR d/t scattered wheezes on exam and cough (pt refused on 11/16) - Seems to have a mild exacerbation based on clinical exam - change to Atrovent and Xopenex d/t her h/o afib - Will consider addition of Zithromax for anti-inflammatory component +/- stero ids - not as concerned about bacterial pna - Stop Breo Ellipta and change to nebulized Budesonide and Formoterol (3) UTI (urinary tract infection): Plan: Abnormal UA on arrival, urine culture growing ESBL E. coli sensitive to Augmentin, ertapenem, meropenem, nitrofurantoin, Zosyn, and Bactrim Did have a low grade fever here on 2nd hospital day but no signs of sepsis, flank pain, etc. so could be considered uncomplicated UTI Given Rocephin 10/28 x 3 doses, then switched to IV Ertapenem 10/30 with culture results Discussed with pharmacy given ESBL Ecoli, despite sensitivities to Augmentin/Bactrim, pharmacy rec Macrobid or fosfomycin as more known about effectiveness Given additional dose Ertapenem 10/31 and switched to Nitro PO BID and completed 7 day course inpatient Repeat cx more than 3 types, all moderate counts mixed skin aida (4) Depression: Plan: In speaking with the patient's daughter on the phone, she has great concerns about the patient having significant depression. She reports that the patient has become withdrawn even from her favorite family members that she usually speaks to. Is refusing to take phone calls from people. Has been eating very minimally and has lost weight as per daughter. She has also made statements that she wishes her life was over, but is not threatening to harm herself. Daughter is requesting consultation with a therapist or a cash posting representative and is interested in perhaps starting her mother on an additional or different anti- depressant. - Remeron would be a good option to stimulate appetite, help with depression, and help with insomnia from which the patient suffers-defer to psychiatry for choice of drug - Consulted automotive lot attendant as per daughter's request -- confirmed has visited more than once - Consult psychiatry at daughter's request - reviewed consult, noted some recommendations but no changes made - further discussion w/ daughter requested Paxil be increased. * Increased to 50mg daily --> continue at d/c, also continue Seroquel 50mg HS. Mood appears stable currently. - Could consider Remeron if needed (5) CAD (coronary artery disease): Plan: HTN, CAD (w h/o CABG), PAF (s/p watchman) - Continue aspirin and metoprolol, statin (6) Dementia: Plan: - continue Seroquel, lamictal, and ativan at bedtime as per daughter for sleep Plan continued inpatient stay awaiting placement CM following, hoping to be able to expand bed search tomorrow in discussions with her daughter Admission and Anticipated Discharge Date Admission Date: October 27, 2021 Subjective Patient was seen on rounds this morning. She is currently pleasantly confused although has been combative at times (not witnessed by myself but has been previously documented). She has no complaints this morning. CXR ordered 11/16 which she refused per nursing staff. Review of Systems Review of Systems: Accurate ROS is limited given her dementia Physical Exam Physical Exam: GENERAL: 81 yo Well-developed, well-nourished WF. NAD. LUNGS: Nonlabored. Expiratory wheezes and rhonchi appreciated throughout. CARDIOVASCULAR: Regular rate and rhythm. ABDOMEN: Soft, non-tender and non-distended. BS normoactive x 4 quad. EXTREMITIES: No edema. Non-tender. Peripheral pulses +2/4. NEUROLOGIC: A&O x1 PSYCHIATRIC: Cooperative. Appropriate mood and affect. SKIN: Warm, dry, intact. No rashes or lesions. Results & Data Results & Data ([facility]) Vital Signs (Past 12 Hours) Vital Signs Temp Pulse Resp BP Pulse Ox O2 Del Method O2 Flow Rate 11/17/21 09:00 Nasal Cannula 3 11/17/21 07:30 36.6 C 79 16 108/73 97 Room Air 11/17/21 07:29 78 12 97 Nasal Cannula 3 11/17/21 01:15 97 Nasal Cannula 3 11/17/21 01:00 86 L Room Air PG Care Time/CCT Total # of Minutes Spent Total Time Spent with Patient: Total time spent is greater than 50% in coordination of care (as documented) at patient's floor/unit and/or counseling patient: Coding Level of Care Code 52737 Subseq Hosp Care Lvl 2 Diagnoses Fall W19.XXXA Encounter type: initial encounter Chronic respiratory failure with hypoxia and hypercapnia J96.11; J96.12 UTI (urinary tract infection) N39.0 Depression F32.A CAD (coronary artery disease) I25.10 Associated angina: unspecified whether angina present Coronary Disease-Associated Artery/Lesion type: unspecified vessel or lesion type [place] vs. transplanted heart: unspecified whether [place] or transplanted heart Dementia F03.91 Dementia behavioral disturbance: with behavioral disturbance Dementia type: unspecified type (1) Fall Encounter type: initial encounter Qualified Code(s): W19.XXXA - Unspecified fall, initial encounter (2) CAD (coronary artery disease) Associated angina: unspecified whether angina present Coronary Disease- Associated Artery/Lesion type: unspecified vessel or lesion type [place] vs. transplanted heart: unspecified whether [place] or transplanted heart Qualified Code(s): I25.10 - Atherosclerotic heart disease of [place] coronary artery without angina pectoris (3) Dementia Dementia behavioral disturbance: with behavioral disturbance Dementia type: unspecified type Qualified Code(s): F03.91 - Unspecified dementia with behavioral disturbance
[2021-11-17] MEDS ORDERED: ALBUT/IPRATROP 3MG/0.5MG NEB 3 ML VIAL NEB SCH (11:00)
[2021-11-17] MEDS ORDERED: XOPENEX/ATROVENT 0.63mg/0.5MG NEB COMBO NEB SCH (13:00)
[2021-11-17] MEDS: LEVALBUTEROL HCL 0.63 MG/3 ML NEB NEB SCH ×2 (14:08→20:23)
[2021-11-17] MEDS: IPRATROPIUM BROMIDE NEB SOLN 0.02% 2.5 ML VIAL INH SCH ×2 (14:08→20:23)
[2021-11-17] MEDS: ATORVASTATIN 40 MG TAB PO SCH (14:11)
[2021-11-17] MEDS: POTASSIUM CHLORIDE CRTAB 20 MEQ TABCR PO SCH (14:11)
[2021-11-17] MEDS: FORMOTEROL 20 MCG/2 ML VIAL NEB SCH (20:23)
[2021-11-17] MEDS: BUDESONIDE 0.5 MG/2 ML VIAL (PULMICORT) NEB SCH (20:23)
[2021-11-17] MEDS: DOCUSATE SODIUM/SENNA 50/8.6MG TAB PO SCH (21:28)
[2021-11-17] MEDS: LIDOCAINE 5% 1 PATCH TD SCH (21:29)
[2021-11-17] MEDS: QUEtiapine FUMARATE 25 MG TABLET PO SCH (21:30)
[2021-11-17] MEDS: LORazepam 0.5 MG TAB PO SCH (21:32)
[2021-11-18] MEDS: LEVALBUTEROL HCL 0.63 MG/3 ML NEB NEB SCH ×4 (01:23→19:53)
[2021-11-18] MEDS: IPRATROPIUM BROMIDE NEB SOLN 0.02% 2.5 ML VIAL INH SCH ×4 (01:23→19:52)
[2021-11-18] MEDS: FORMOTEROL 20 MCG/2 ML VIAL NEB SCH ×2 (07:39→19:56)
[2021-11-18] MEDS: BUDESONIDE 0.5 MG/2 ML VIAL (PULMICORT) NEB SCH ×2 (07:39→19:56)
[2021-11-18] MEDS: SUCRALFATE 1 GM TAB PO SCH ×3 (09:09→16:04)
[2021-11-18] MEDS: PARoxetine HCl CONTROLLED REL 12.5 MG TABCR PO SCH (09:49)
[2021-11-18] MEDS: FUROSEMIDE 40 MG TAB PO SCH (09:49)
[2021-11-18] MEDS: PANTOprazole 40 MG TAB PO SCH ×2 (09:49→22:05)
[2021-11-18] MEDS: ASPIRIN 81 MG ECTAB PO SCH (09:49)
[2021-11-18] MEDS: NICOTINE 14 MG/24 HR PATCH TD SCH (09:50)
[2021-11-18] MEDS: METOPROLOL SUCC 25MG EXT REL TAB PO SCH (09:50)
[2021-11-18] MEDS: oxyCODONE/ACETAMINOPHEN 10-325 TAB PO SCH ×2 (09:59→22:08)
[2021-11-18] MEDS: lamoTRIgine 100 MG TAB PO SCH ×2 (11:11→22:08)
--- NOTE | 2021-11-18 11:16 | XRay Report ---
XR chest 1V portable HISTORY: 81 years-old Female wheezing, cough acute cough with wheezing COMPARISON: Chest radiograph 10/27/2021 TECHNIQUE: AP view of the chest FINDINGS: Cardiac silhouette is enlarged. Prior median sternotomy. Occlusion device projects over the left hear t border. Left subclavian pacer/AICD. No pneumothorax, pleural effusion or overt pulmonary edema. Mil d chronic interstitial coarsening. Degenerative changes of the shoulders and spine. IMPRESSION: Cardiomegaly without acute process. ACT 112: Negative or not required by law. The above report was generated using voice recognition software. It may contain grammatical, syntax o r spelling errors. Electronically signed by: Monster Viera M.D. 11/18/2021 11:14 AM
--- NOTE | 2021-11-18 12:42 | Hospitalist Progress Note ---
Date of Service November 18, 2021 Assessment & Plan (1) Fall: Plan: Admitted after a fall (with history of falls/weakness). Imaging with minimal chronic superior endplate compression deformity of T4. Also has multilevel degenerative disc disease. - Pain control with Tylenol and lidocaine patch, * Percocet scheduled-has a long history of chronic neck and back pain for which she used to receive injections and see pain management * -daughter also reports pt takes scheduled percocet but is okay with decreasing dose down every 8 hours-now decreased to q12 hours as not requiring it that often * patient denies any increased pain/need for additional pain medication - PT/OT -- rec SNF - Awaiting placement -- may need to consider additional facilities (daughter gave 6, CM following) (2) Chronic respiratory failure with hypoxia and hypercapnia: Plan: D/t COPD - Baseline O2 is 3L NC, currently sats in the low 90s which is worse as opposed to earlier in this stay - Seems to have a mild exacerbation based on clinical exam - change to Atrovent and Xopenex SCHEDULED d/t her h/o afib - Add IV solumedrol for acute bronchospasm - Stop Breo Ellipta and change to nebulized Budesonide and Formoterol - cxr does not demonstrate any focal consolidations/infiltrates (3) UTI (urinary tract infection): Plan: Abnormal UA on arrival, urine culture growing ESBL E. coli sensitive to Augmentin, ertapenem, meropenem, nitrofurantoin, Zosyn, and Bactrim Did have a low grade fever here on 2nd hospital day but no signs of sepsis, flank pain, etc. so could be considered uncomplicated UTI Given Rocephin 10/28 x 3 doses, then switched to IV Ertapenem 10/30 with culture results Discussed with pharmacy given ESBL Ecoli, despite sensitivities to Augmentin/Bactrim, pharmacy rec Macrobid or fosfomycin as more known about effectiveness Given additional dose Ertapenem 10/31 and switched to Nitro PO BID and completed 7 day course inpatient Repeat cx more than 3 types, all moderate counts mixed skin aida (4) Depression: Plan: In speaking with the patient's daughter on the phone, she has great concerns about the patient having significant depression. She reports that the patient has become withdrawn even from her favorite family members that she usually speaks to. Is refusing to take phone calls from people. Has been eating very minimally and has lost weight as per daughter. She has also made statements that she wishes her life was over, but is not threatening to harm herself. Daughter is requesting consultation with a therapist or a lot boss and is interested in perhaps starting her mother on an additional or different anti-depressant. - Remeron would be a good option to stimulate appetite, help with depression, and help with insomnia from which the patient suffers-defer to psychiatry for choice of drug - Consulted retail merchandising manager as per daughter's request -- confirmed has visited more than once - Consult psychiatry at daughter's request - reviewed consult, noted some recommendations but no changes made - further discussion w/ daughter requested Paxil be increased. * Increased to 50mg daily --> continue at d/c, also continue Seroquel 50mg HS. Mood appears stable currently. - Could consider Remeron if needed (5) CAD (coronary artery disease): Plan: HTN, CAD (w h/o CABG), PAF (s/p watchman) - Continue aspirin and metoprolol, statin (6) Dementia: Plan: - continue Seroquel, lamictal, and ativan at bedtime as per daughter for sleep Plan continued inpatient stay awaiting placement CM following, hoping to be able to expand bed search in discussions with her daughter Admission and Anticipated Discharge Date Admission Date: October 27, 2021 Subjective Patient was seen on rounds this morning. She is currently pleasantly confused but is cooperative. She says she will comply with getting a chest xray today. She still has a mild cough. Review of Systems Review of Systems: Accurate ROS is limited given her dementia Physical Exam Physical Exam: GENERAL: 81 yo Well-developed, well-nourished WF. NAD. LUNGS: Nonlabored. Expiratory wheezes and rhonchi appreciated throughout (more so anteriorly). Crackles in LLL CARDIOVASCULAR: Regular rate and rhythm. ABDOMEN: Soft, non-tender and non-distended. BS normoactive x 4 quad. EXTREMITIES: No edema. Non-tender. Peripheral pulses +2/4. NEUROLOGIC: A&O x1 PSYCHIATRIC: Cooperative. Appropriate mood and affect. SKIN: Warm, dry, intact. No rashes or lesions. Results & Data Results & Data ([facility]) Vital Signs (Past 12 Hours) Vital Signs Temp Pulse Resp BP Pulse Ox O2 Del Method O2 Flow Rate 11/18/21 08:21 Nasal Cannula 3 11/18/21 08:12 36.9 C 89 14 103/63 91 Room Air 11/18/21 07:40 85 16 92 Room Air Diagnostic Findings Chest X-Ray 11/18/21 10:44 XR chest 1V portable HISTORY: 81 years-old Female wheezing, cough acute cough with wheezing COMPARISON: Chest radiograph 10/27/2021 TECHNIQUE: AP view of the chest FINDINGS: Cardiac silhouette is enlarged. Prior median sternotomy. Occlusion device projects over the left heart border. Left subclavian pacer/AICD. No pneumothorax, pleural effusion or overt pulmonary edema. Mild chronic interstitial coarsening. Degenerative changes of the shoulders and spine. IMPRESSION: Cardiomegaly without acute process. ACT 112: Negative or not required by law. The above report was generated using voice recognition software. It may contain grammatical, syntax or spelling errors. Electronically signed by: Monster Viera M.D. 11/18/2021 11:14 AM PG Care Time/CCT Total # of Minutes Spent Total Time Spent with Patient: Total time spent is greater than 50% in coordination of care (as documented) at patient's floor/unit and/or counseling patient: Coding Level of Care Code 44440 Subseq Hosp Care Lvl 2 Diagnoses Fall W19.XXXA Encounter type: initial encounter Chronic respiratory failure with hypoxia and hypercapnia J96.11; J96.12 UTI (urinary tract infection) N39.0 Depression F32.A CAD (coronary artery disease) I25.10 Associated angina: unspecified whether angina present Coronary Disease-Associated Artery/Lesion type: unspecified vessel or lesion type [place] vs. transplanted heart: unspecified whether [place] or transplanted heart Dementia F03.91 Dementia behavioral disturbance: with behavioral disturbance Dementia type: unspecified type (1) CAD (coronary artery disease) Associated angina: unspecified whether angina present Coronary Disease- Associated Artery/Lesion type: unspecified vessel or lesion type [place] vs. transplanted heart: unspecified whether [place] or transplanted heart Qualified Code(s): I25.10 - Atherosclerotic heart disease of [place] coronary artery without angina pectoris (2) Dementia Dementia behavioral disturbance: with behavioral disturbance Dementia type: unspecified type Qualified Code(s): F03.91 - Unspecified dementia with behavioral disturbance (3) Fall Encounter type: initial encounter Qualified Code(s): W19.XXXA - Unspecified fall, initial encounter
[2021-11-18] MEDS ORDERED: methylPREDNISolone 40 MG in SYRINGE 0 ML IV SCH (14:00)
[2021-11-18] MEDS: ATORVASTATIN 40 MG TAB PO SCH (16:04)
[2021-11-18] MEDS: POTASSIUM CHLORIDE CRTAB 20 MEQ TABCR PO SCH (16:04)
[2021-11-18] MEDS: DOCUSATE SODIUM/SENNA 50/8.6MG TAB PO SCH (22:05)
[2021-11-18] MEDS: QUEtiapine FUMARATE 25 MG TABLET PO SCH (22:06)
[2021-11-18] MEDS: LIDOCAINE 5% 1 PATCH TD SCH (22:06)
[2021-11-18] MEDS: LORazepam 0.5 MG TAB PO SCH (22:08)
[2021-11-19] MEDS: IPRATROPIUM BROMIDE NEB SOLN 0.02% 2.5 ML VIAL INH SCH ×4 (00:44→19:24)
[2021-11-19] MEDS: LEVALBUTEROL HCL 0.63 MG/3 ML NEB NEB SCH ×4 (00:44→19:24)
[2021-11-19] MEDS ORDERED: ACETAMINOPHEN 1000 MG/100 ML IV IV ONE (04:51)
[2021-11-19] MEDS: BUDESONIDE 0.5 MG/2 ML VIAL (PULMICORT) NEB SCH ×2 (07:30→19:25)
[2021-11-19] MEDS: FORMOTEROL 20 MCG/2 ML VIAL NEB SCH ×2 (07:30→19:25)
[2021-11-19] MEDS: METOPROLOL SUCC 25MG EXT REL TAB PO SCH (08:16)
[2021-11-19] MEDS: PANTOprazole 40 MG TAB PO SCH ×2 (08:16→21:58)
[2021-11-19] MEDS: SUCRALFATE 1 GM TAB PO SCH ×3 (08:18→17:35)
[2021-11-19] MEDS: POTASSIUM CHLORIDE CRTAB 20 MEQ TABCR PO SCH (08:18)
[2021-11-19] MEDS: PARoxetine HCl CONTROLLED REL 12.5 MG TABCR PO SCH (08:18)
[2021-11-19] MEDS: FUROSEMIDE 40 MG TAB PO SCH (08:18)
[2021-11-19] MEDS: ATORVASTATIN 40 MG TAB PO SCH (08:18)
[2021-11-19] MEDS: NICOTINE 14 MG/24 HR PATCH TD SCH (08:19)
[2021-11-19] MEDS: predniSONE 20 MG TAB PO SCH (08:19)
[2021-11-19] MEDS: lamoTRIgine 100 MG TAB PO SCH ×2 (08:21→21:59)
[2021-11-19] MEDS: ASPIRIN 81 MG ECTAB PO SCH (08:21)
--- NOTE | 2021-11-19 12:08 | Hospitalist Progress Note ---
Date of Service November 19, 2021 Assessment & Plan (1) Fall: Plan: Admitted after a fall (with history of falls/weakness). Imaging with minimal chronic superior endplate compression deformity of T4. Also has multilevel degenerative disc disease. - Pain control with Tylenol and lidocaine patch, * Percocet scheduled-has a long history of chronic neck and back pain for which she used to receive injections and see pain management * -daughter also reports pt takes scheduled percocet but is okay with decreasing dose down every 8 hours-now decreased to q12 hours as not requiring it that often * patient denies any increased pain/need for additional pain medication - PT/OT -- rec SNF - Awaiting placement -- may need to consider additional facilities (daughter gave 6, CM following) (2) Chronic respiratory failure with hypoxia and hypercapnia: Plan: D/t COPD - Baseline O2 is 3L NC, currently sats in the low 90s which is worse as opposed to earlier in this stay - Seems to have a mild exacerbation based on clinical exam - change to Atrovent and Xopenex SCHEDULED d/t her h/o afib - Initially added IV solumedrol for acute bronchospasm on 11/18 but pt w/o IV access so changed to oral Prednisone to start 11/19 - Stop Breo Ellipta and change to nebulized Budesonide and Formoterol - cxr does not demonstrate any focal consolidations/infiltrates - Add Mucinex - Test for flu/rsv/covid for completeness (3) UTI (urinary tract infection): Plan: Abnormal UA on arrival, urine culture growing ESBL E. coli sensitive to Augmentin, ertapenem, meropenem, nitrofurantoin, Zosyn, and Bactrim Did have a low grade fever here on 2nd hospital day but no signs of sepsis, flank pain, etc. so could be considered uncomplicated UTI Given Rocephin 10/28 x 3 doses, then switched to IV Ertapenem 10/30 with culture results Discussed with pharmacy given ESBL Ecoli, despite sensitivities to Augmentin/Bactrim, pharmacy rec Macrobid or fosfomycin as more known about effectiveness Given additional dose Ertapenem 10/31 and switched to Nitro PO BID and completed 7 day course inpatient Repeat cx more than 3 types, all moderate counts mixed skin aida (4) Depression: Plan: In speaking with the patient's daughter on the phone, she has great concerns ab out the patient having significant depression. She reports that the patient has become withdrawn even from her favorite family members that she usually speaks to. Is refusing to take phone calls from people. Has been eating very minimally and has lost weight as per daughter. She has also made statements that she wishes her life was over, but is not threatening to harm herself. Daughter is requesting consultation with a therapist or a brush or broom cutter and is interested in perhaps starting her mother on an additional or different anti- depressant. - Remeron would be a good option to stimulate appetite, help with depression, and help with insomnia from which the patient suffers-defer to psychiatry for choice of drug - Consulted sales representative trainee as per daughter's request -- confirmed has visited more than once - Consult psychiatry at daughter's request - reviewed consult, noted some recommendations but no changes made - further discussion w/ daughter requested Paxil be increased. * Increased to 50mg daily --> continue at d/c, also continue Seroquel 50mg HS. Mood appears stable currently. - Could consider Remeron if needed (5) CAD (coronary artery disease): Plan: HTN, CAD (w h/o CABG), PAF (s/p watchman) - Continue aspirin and metoprolol, statin (6) Dementia: Plan: - continue Seroquel, lamictal, and ativan at bedtime as per daughter for sleep Plan continued inpatient stay awaiting placement CM following, are looking at [facility] in [place] but will not be until Sunday at earliest and pt will still require auth. Family aware. Admission and Anticipated Discharge Date Admission Date: October 27, 2021 Subjective Patient was seen on rounds this morning. She is currently pleasantly confused but is cooperative. She is laying in bed. Still has cough. Nebs ordered, started oral steroids this morning. Review of Systems Review of Systems: Accurate ROS is limited given her dementia Physical Exam Physical Exam: GENERAL: 81 yo Well-developed, well-nourished WF. NAD. LUNGS: Nonlabored. Expiratory wheezes and rhonchi appreciated throughout. CARDIOVASCULAR: Regular rate and rhythm. ABDOMEN: Soft, non-tender and non-distended. BS normoactive x 4 quad. EXTREMITIES: No edema. Non-tender. Peripheral pulses +2/4. NEUROLOGIC: A&O x1 PSYCHIATRIC: Cooperative. Appropriate mood and affect. SKIN: Warm, dry, intact. No rashes or lesions. Results & Data Results & Data ([facility]) Vital Signs (Past 12 Hours) Vital Signs Temp Pulse Resp BP Pulse Ox O2 Del Method 11/19/21 07:47 36.6 C 72 16 116/67 92 Room Air 11/19/21 07:31 78 18 95 Room Air PG Care Time/CCT Total # of Minutes Spent Total Time Spent with Patient: Total time spent is greater than 50% in coordination of care (as documented) at patient's floor/unit and/or counseling patient: Coding Level of Care Code 91053 Subseq Hosp Care Lvl 2 Diagnoses Fall W19.XXXA Encounter type: initial encounter Chronic respiratory failure with hypoxia and hypercapnia J96.11; J96.12 UTI (urinary tract infection) N39.0 Depression F32.A CAD (coronary artery disease) I25.10 Associated angina: unspecified whether angina present Coronary Disease-Associated Artery/Lesion type: unspecified vessel or lesion type [place] vs. transplanted heart: unspecified whether [place] or transplanted heart Dementia F03.91 Dementia behavioral disturbance: with behavioral disturbance Dementia type: unspecified type (1) Fall Encounter type: initial encounter Qualified Code(s): W19.XXXA - Unspecified fall, initial encounter (2) CAD (coronary artery disease) Associated angina: unspecified whether angina present Coronary Disease- Associated Artery/Lesion type: unspecified vessel or lesion type [place] vs. transplanted heart: unspecified whether [place] or transplanted heart Qualified Code(s): I25.10 - Atherosclerotic heart disease of [place] coronary artery without angina pectoris (3) Dementia Dementia behavioral disturbance: with behavioral disturbance Dementia type: unspecified type Qualified Code(s): F03.91 - Unspecified dementia with behavioral disturbance
[2021-11-19] MEDS: oxyCODONE/ACETAMINOPHEN 10-325 TAB PO SCH ×2 (12:56→21:57)
[2021-11-19 14:30] LABS: Influenza A virus by PCR Negative (Neg); Influenza B virus by PCR Negative (Neg); RSV by PCR Negative (Neg); SARS CoV2 RNA(COVID-19) InHosp NEGATIVE (Negative)
[2021-11-19] MEDS ORDERED: OLANZapine 10 MG/2.1 ML SDV IM PRN (18:36)
[2021-11-19] MEDS: QUEtiapine FUMARATE 25 MG TABLET PO SCH (21:58)
[2021-11-19] MEDS: LORazepam 0.5 MG TAB PO SCH (21:58)
[2021-11-19] MEDS: guaiFENesin 600 MG TABCR PO SCH (21:58)
[2021-11-19] MEDS: MELATONIN 3 MG TAB PO PRN (21:58)
[2021-11-19] MEDS: DOCUSATE SODIUM/SENNA 50/8.6MG TAB PO SCH (21:59)
[2021-11-19] MEDS: LIDOCAINE 5% 1 PATCH TD SCH (21:59)
[2021-11-20] MEDS: IPRATROPIUM BROMIDE NEB SOLN 0.02% 2.5 ML VIAL INH SCH ×3 (00:11→13:12)
[2021-11-20] MEDS: LEVALBUTEROL HCL 0.63 MG/3 ML NEB NEB SCH ×2 (00:11→07:30)
[2021-11-20] MEDS: BUDESONIDE 0.5 MG/2 ML VIAL (PULMICORT) NEB SCH ×2 (07:29→19:18)
[2021-11-20] MEDS: FORMOTEROL 20 MCG/2 ML VIAL NEB SCH ×2 (07:29→19:18)
[2021-11-20] MEDS: ASPIRIN 81 MG ECTAB PO SCH (08:59)
[2021-11-20] MEDS: NICOTINE 14 MG/24 HR PATCH TD SCH (08:59)
[2021-11-20] MEDS: METOPROLOL SUCC 25MG EXT REL TAB PO SCH (08:59)
[2021-11-20] MEDS: predniSONE 20 MG TAB PO SCH (09:00)
[2021-11-20] MEDS: POTASSIUM CHLORIDE CRTAB 20 MEQ TABCR PO SCH (09:00)
[2021-11-20] MEDS: SUCRALFATE 1 GM TAB PO SCH ×3 (09:00→17:15)
[2021-11-20] MEDS: FUROSEMIDE 40 MG TAB PO SCH (09:01)
[2021-11-20] MEDS: PARoxetine HCl CONTROLLED REL 12.5 MG TABCR PO SCH (09:01)
[2021-11-20] MEDS: ATORVASTATIN 40 MG TAB PO SCH (09:01)
[2021-11-20] MEDS: guaiFENesin 600 MG TABCR PO SCH ×2 (09:02→21:46)
[2021-11-20] MEDS: lamoTRIgine 100 MG TAB PO SCH ×2 (09:02→21:46)
[2021-11-20] MEDS: PANTOprazole 40 MG TAB PO SCH ×2 (09:02→21:46)
--- NOTE | 2021-11-20 09:16 | Hospitalist Progress Note ---
Date of Service November 20, 2021 Assessment & Plan (1) Fall: Plan: Admitted after a fall (with history of falls/weakness). Imaging with minimal chronic superior endplate compression deformity of T4. Also has multilevel degenerative disc disease. - Pain control with Tylenol and lidocaine patch, * Percocet scheduled-has a long history of chronic neck and back pain for which she used to receive injections and see pain management * -daughter also reports pt takes scheduled percocet but is okay with decreasing dose down every 8 hours-now decreased to q12 hours as not requiring it that often * patient denies any increased pain/need for additional pain medication - PT/OT -- rec SNF - Awaiting placement -- may need to consider additional facilities (daughter gave 6, CM following) (2) Chronic respiratory failure with hypoxia and hypercapnia: Plan: D/t COPD - Baseline O2 is 3L [place], currently sats in the low 90s which is worse as opposed to earlier in this stay - Seems to have a mild exacerbation based on clinical exam - change to Atrovent and Xopenex SCHEDULED d/t her h/o afib - Initially added IV solumedrol for acute bronchospasm on 11/18 but pt w/o IV access so changed to oral Prednisone to start 11/19 - Stop Breo Ellipta and change to nebulized Budesonide and Formoterol - cxr does not demonstrate any focal consolidations/infiltrates - Added Mucinex - Tested for flu/rsv/covid on 11/19, negative - BS improved today, will change nebs to PRN and dc formoterol and budesonide resume Breo on 11/21 (3) UTI (urinary tract infection): Plan: Abnormal UA on arrival, urine culture growing ESBL E. coli sensitive to Augmentin, ertapenem, meropenem, nitrofurantoin, Zosyn, and Bactrim Did have a low grade fever here on 2nd hospital day but no signs of sepsis, flank pain, etc. so could be considered uncomplicated UTI Given Rocephin 10/28 x 3 doses, then switched to IV Ertapenem 10/30 with culture results Discussed with pharmacy given ESBL Ecoli, despite sensitivities to Augmentin/Bactrim, pharmacy rec Macrobid or fosfomycin as more known about effectiveness Given additional dose Ertapenem 10/31 and switched to Nitro PO BID and completed 7 day course inpatient Repeat cx more than 3 types, all moderate counts mixed skin aida (4) Depression: Plan: In speaking with the patient's daughter on the phone, she has great concerns about the patient having significant depression. She reports that the patient has become withdrawn even from her favorite family members that she usually speaks to. Is refusing to take phone calls from people. Has been eating very minimally and has lost weight as per daughter. She has also made statements that she wishes her life was over, but is not threatening to harm herself. Daughter is requesting consultation with a therapist or a school cafeteria cook head and is interested in perhaps starting her mother on an additional or different anti- depressant. - Remeron would be a good option to stimulate appetite, help with depression, and help with insomnia from which the patient suffers-defer to psychiatry for choice of drug - Consulted voice instructor as per daughter's request -- confirmed has visited more than once - Consult psychiatry at daughter's request - reviewed consult, noted some recommendations but no changes made - further discussion w/ daughter requested Paxil be increased. * Increased to 50mg daily --> continue at d/c, also continue Seroquel 50mg HS. M ood appears stable currently. - Could consider Remeron if needed (5) CAD (coronary artery disease): Plan: HTN, CAD (w h/o CABG), PAF (s/p watchman) - Continue aspirin and metoprolol, statin (6) Dementia: Plan: - continue Seroquel, lamictal, and ativan at bedtime as per daughter for sleep Plan continued inpatient stay awaiting placement CM following, are looking at [facility] in [place] but will not be until Sunday at earliest and pt will still require auth. Family aware. Admission and Anticipated Discharge Date Admission Date: October 27, 2021 Subjective Patient was seen on rounds this morning. She is currently pleasantly confused but is cooperative. Tested for COVID/Flu/RSV on 11/19 which came back negative. Review of Systems Review of Systems: Accurate ROS is limited given her dementia Physical Exam Physical Exam: GENERAL: 81 yo Well-developed, well-nourished WF. NAD. LUNGS: Nonlabored. Few mild end expiratory wheezes noted but overall greatly improved from days prior CARDIOVASCULAR: Regular rate and rhythm. ABDOMEN: Soft, non-tender and non-distended. BS normoactive x 4 quad. EXTREMITIES: No edema. Non-tender. Peripheral pulses +2/4. NEUROLOGIC: A&O x1 PSYCHIATRIC: Cooperative. Appropriate mood and affect. SKIN: Warm, dry, intact. No rashes or lesions. Results & Data Results & Data ([facility]) Vital Signs (Past 12 Hours) Vital Signs Temp Pulse Pulse Resp BP BP Pulse Ox 11/20/21 08:57 36.4 C L 60 16 112/65 94 11/20/21 07:30 78 16 92 11/19/21 22:58 36.8 C 88 20 108/65 93 O2 Del Method O2 Flow Rate 11/20/21 08:57 Nasal Cannula 2 11/20/21 07:30 Nasal Cannula 1 11/19/21 22:58 Nasal Cannula 2 PG Care Time/CCT Total # of Minutes Spent Total Time Spent with Patient: Total time spent is greater than 50% in coordination of care (as documented) at patient's floor/unit and/or counseling patient: Coding Level of Care Code 27870 Subseq Hosp Care Lvl 1 Diagnoses Fall W19.XXXA Encounter type: initial encounter Chronic respiratory failure with hypoxia and hypercapnia J96.11; J96.12 UTI (urinary tract infection) N39.0 Depression F32.A CAD (coronary artery disease) I25.10 Associated angina: unspecified whether angina present Coronary Disease-Associated Artery/Lesion type: unspecified vessel or lesion type [place] vs. transplanted heart: unspecified whether [place] or transplanted heart Dementia F03.91 Dementia behavioral disturbance: with behavioral disturbance Dementia type: unspecified type (1) Fall Encounter type: initial encounter Qualified Code(s): W19.XXXA - Unspecified fall, initial encounter (2) CAD (coronary artery disease) Associated angina: unspecified whether angina present Coronary Disease- Associated Artery/Lesion type: unspecified vessel or lesion type [place] vs. transplanted heart: unspecified whether [place] or transplanted heart Qualified Code(s): I25.10 - Atherosclerotic heart disease of [place] coronary artery withou t angina pectoris (3) Dementia Dementia behavioral disturbance: with behavioral disturbance Dementia type: unspecified type Qualified Code(s): F03.91 - Unspecified dementia with behavioral disturbance
[2021-11-20] MEDS ORDERED: LEVALBUTEROL HCL 0.63 MG/3 ML NEB NEB PRN (09:17)
[2021-11-20] MEDS: oxyCODONE/ACETAMINOPHEN 10-325 TAB PO SCH ×2 (09:44→21:47)
[2021-11-20] MEDS ORDERED: IPRATROPIUM BROMIDE NEB SOLN 0.02% 2.5 ML VIAL INH PRN (13:10)
[2021-11-20] MEDS ORDERED: OLANZapine 10 MG/2.1 ML SDV IM ONE (17:00)
[2021-11-20] MEDS: QUEtiapine FUMARATE 25 MG TABLET PO SCH (21:46)
[2021-11-20] MEDS: DOCUSATE SODIUM/SENNA 50/8.6MG TAB PO SCH (21:47)
[2021-11-20] MEDS: LORazepam 0.5 MG TAB PO SCH (21:47)
[2021-11-20] MEDS: LIDOCAINE 5% 1 PATCH TD SCH (21:47)
[2021-11-21] MEDS: oxyCODONE/ACETAMINOPHEN 10-325 TAB PO SCH ×2 (09:51→22:15)
[2021-11-21] MEDS: FUROSEMIDE 40 MG TAB PO SCH (09:51)
[2021-11-21] MEDS: SUCRALFATE 1 GM TAB PO SCH ×3 (09:51→16:58)
[2021-11-21] MEDS: NICOTINE 14 MG/24 HR PATCH TD SCH (09:52)
[2021-11-21] MEDS: predniSONE 20 MG TAB PO SCH (09:52)
[2021-11-21] MEDS: ASPIRIN 81 MG ECTAB PO SCH (09:52)
[2021-11-21] MEDS: ATORVASTATIN 40 MG TAB PO SCH (09:54)
[2021-11-21] MEDS: METOPROLOL SUCC 25MG EXT REL TAB PO SCH (09:54)
[2021-11-21] MEDS: PARoxetine HCl CONTROLLED REL 12.5 MG TABCR PO SCH (09:55)
[2021-11-21] MEDS: PANTOprazole 40 MG TAB PO SCH ×2 (09:56→22:17)
[2021-11-21] MEDS: lamoTRIgine 100 MG TAB PO SCH ×2 (09:56→22:18)
[2021-11-21] MEDS: guaiFENesin 600 MG TABCR PO SCH ×2 (09:56→22:19)
[2021-11-21] MEDS: FLUTICASONE/VILANTEROL 100/25MCG 14 PUFFS/INHALER INH SCH (09:57)
[2021-11-21] MEDS: POTASSIUM CHLORIDE CRTAB 20 MEQ TABCR PO SCH (09:57)
--- NOTE | 2021-11-21 11:33 | Hospitalist Progress Note ---
Date of Service November 21, 2021 Assessment & Plan (1) Fall: Plan: Admitted after a fall (with history of falls/weakness). Imaging with minimal chronic superior endplate compression deformity of T4. Also has multilevel degenerative disc disease. - Pain control with Tylenol and lidocaine patch, * Percocet scheduled-has a long history of chronic neck and back pain for which she used to receive injections and see pain management * -daughter also reports pt takes scheduled percocet but is okay with decreasing dose down every 8 hours-now decreased to q12 hours as not requiring it that often * patient denies any increased pain/need for additional pain medication - PT/OT -- rec SNF - Awaiting placement -- may need to consider additional facilities (daughter gave 6, CM following) (2) Chronic respiratory failure with hypoxia and hypercapnia: Plan: D/t COPD - Baseline O2 is 3L NC, currently sats in the low 90s which is worse as opposed to earlier in this stay - Seems to have a mild exacerbation based on clinical exam - change to Atrovent and Xopenex SCHEDULED d/t her h/o afib - Initially added IV solumedrol for acute bronchospasm on 11/18 but pt w/o IV access so changed to oral Prednisone to start 11/19 - Stop Breo Ellipta and change to nebulized Budesonide and Formoterol - cxr does not demonstrate any focal consolidations/infiltrates - Added Mucinex - Tested for flu/rsv/covid on 11/19, negative - Changed nebs to PRN and dc formoterol and budesonide resumed Breo on 11/21 (3) UTI (urinary tract infection): Plan: Abnormal UA on arrival, urine culture growing ESBL E. coli sensitive to Augmentin, ertapenem, meropenem, nitrofurantoin, Zosyn, and Bactrim Did have a low grade fever here on 2nd hospital day but no signs of sepsis, flank pain, etc. so could be considered uncomplicated UTI Given Rocephin 10/28 x 3 doses, then switched to IV Ertapenem 10/30 with culture results Discussed with pharmacy given ESBL Ecoli, despite sensitivities to Augmentin/Bactrim, pharmacy rec Macrobid or fosfomycin as more known about effectiveness Given additional dose Ertapenem 10/31 and switched to Nitro PO BID and completed 7 day course inpatient Repeat cx more than 3 types, all moderate counts mixed skin aida (4) Depression: Plan: In speaking with the patient's daughter on the phone, she has great concerns about the patient having significant depression. She reports that the patient has become withdrawn even from her favorite family members that she usually speaks to. Is refusing to take phone calls from people. Has been eating very minimally and has lost weight as per daughter. She has also made statements that she wishes her life was over, but is not threatening to harm herself. Daughter is requesting consultation with a therapist or a breastfeeding educator and is interested in perhaps starting her mother on an additional or different anti- depressant. - Remeron would be a good option to stimulate appetite, help with depression, and help with insomnia from which the patient suffers-defer to psychiatry for choice of drug - Consulted coat checker as per daughter's request -- confirmed has visited more than once - Consult psychiatry at daughter's request - reviewed consult, noted some recommendations but no changes made - further discussion w/ daughter requested Paxil be increased. * Increased to 50mg daily --> continue at d/c, also continue Seroquel 50mg HS. - Could consider Remeron if needed (5) CAD (coronary artery disease): Plan: HTN, CAD (w h/o CABG), PAF (s/p watchman) - Continue aspirin and metoprolol, statin (6) Dementia: Plan: - continue Seroquel, lamictal, and ativan at bedtime as per daughter for sleep - consistently ing in late afternoon, I have reached out to psych regarding recommendations for med adjustments to better manage Plan continued inpatient stay awaiting placement CM following, are looking at [facility] in [place] but will not be until Sunday at earliest and pt will still require auth. Family aware. CM to follow up on this Admission and Anticipated Discharge Date Admission Date: October 27, 2021 Subjective Patient was seen on rounds this morning. She is currently pleasantly confused but is cooperative. Review of Systems Review of Systems: Accurate ROS is limited given her dementia Physical Exam Physical Exam: GENERAL: 81 yo Well-developed, well-nourished WF. NAD. LUNGS: Nonlabored. Few mild end expiratory wheezes noted but overall greatly improved from days prior CARDIOVASCULAR: Regular rate and rhythm. ABDOMEN: Soft, non-tender and non-distended. BS normoactive x 4 quad. EXTREMITIES: No edema. Non-tender. Peripheral pulses +2/4. NEUROLOGIC: A&O x1 PSYCHIATRIC: Cooperative. Appropriate mood and affect. SKIN: Warm, dry, intact. No rashes or lesions. Results & Data Results & Data ([facility]) Vital Signs (Past 12 Hours) Vital Signs Temp Pulse Resp BP Pulse Ox O2 Del Method O2 Flow Rate 11/21/21 10:00 Nasal Cannula 3 11/21/21 09:50 36.6 C 75 18 120/79 94 Nasal Cannula 2 PG Care Time/CCT Total # of Minutes Spent Total Time Spent with Patient: Total time spent is greater than 50% in coordination of care (as documented) at patient's floor/unit and/or counseling patient: Coding Level of Care Code 93943 Subseq Hosp Care Lvl 1 Diagnoses Fall W19.XXXA Encounter type: initial encounter Chronic respiratory failure with hypoxia and hypercapnia J96.11; J96.12 UTI (urinary tract infection) N39.0 Depression F32.A CAD (coronary artery disease) I25.10 Associated angina: unspecified whether angina present Coronary Disease-Associated Artery/Lesion type: unspecified vessel or lesion type [place] vs. transplanted heart: unspecified whether [place] or transplanted heart Dementia F03.91 Dementia behavioral disturbance: with behavioral disturbance Dementia type: unspecified type (1) Fall Encounter type: initial encounter Qualified Code(s): W19.XXXA - Unspecified fall, initial encounter (2) CAD (coronary artery disease) Associated angina: unspecified whether angina present Coronary Disease- Associated Artery/Lesion type: unspecified vessel or lesion type [place] vs. transplanted heart: unspecified whether [place] or transplanted heart Qualified Code(s): I25.10 - Atherosclerotic heart disease of [place] coronary artery without angina pectoris (3) Dementia Dementia behavioral disturbance: with behavioral disturbance Dementia type: unspecified type Qualified Code(s): F03.91 - Unspecified dementia with behavioral disturbance
--- NOTE | 2021-11-21 20:09 | Communication Note ---
Date of Service: November 21, 2021 Nursing messaged about patient having agitation and confusion this evening during transfer. Per my assessment, will hold off on IM Zyprexa for now.
[2021-11-21] MEDS: LIDOCAINE 5% 1 PATCH TD SCH (22:14)
[2021-11-21] MEDS: MELATONIN 3 MG TAB PO PRN (22:15)
[2021-11-21] MEDS: LORazepam 0.5 MG TAB PO SCH (22:16)
[2021-11-21] MEDS: DOCUSATE SODIUM/SENNA 50/8.6MG TAB PO SCH (22:17)
[2021-11-21] MEDS: QUEtiapine FUMARATE 25 MG TABLET PO SCH (22:17)
[2021-11-22] MEDS: SUCRALFATE 1 GM TAB PO SCH ×3 (09:10→17:29)
[2021-11-22] MEDS: guaiFENesin 600 MG TABCR PO SCH ×2 (09:16→21:27)
[2021-11-22] MEDS: FUROSEMIDE 40 MG TAB PO SCH (09:16)
[2021-11-22] MEDS: PARoxetine HCl CONTROLLED REL 12.5 MG TABCR PO SCH (09:17)
[2021-11-22] MEDS: predniSONE 10 MG TABLET PO SCH (09:17)
[2021-11-22] MEDS: POTASSIUM CHLORIDE CRTAB 20 MEQ TABCR PO SCH (09:19)
[2021-11-22] MEDS: lamoTRIgine 100 MG TAB PO SCH ×2 (09:19→21:26)
[2021-11-22] MEDS: PANTOprazole 40 MG TAB PO SCH ×2 (09:19→21:26)
[2021-11-22] MEDS: ASPIRIN 81 MG ECTAB PO SCH (09:19)
[2021-11-22] MEDS: ATORVASTATIN 40 MG TAB PO SCH (09:20)
[2021-11-22] MEDS: METOPROLOL SUCC 25MG EXT REL TAB PO SCH (09:20)
[2021-11-22] MEDS: FLUTICASONE/VILANTEROL 100/25MCG 14 PUFFS/INHALER INH SCH (09:20)
[2021-11-22] MEDS: NICOTINE 14 MG/24 HR PATCH TD SCH (09:28)
[2021-11-22] MEDS: oxyCODONE/ACETAMINOPHEN 10-325 TAB PO SCH ×2 (10:32→21:25)
--- NOTE | 2021-11-22 11:10 | Hospitalist Progress Note ---
Date of Service November 22, 2021 Assessment & Plan (1) Fall: Plan: Admitted after a fall (with history of falls/weakness). Imaging with minimal chronic superior endplate compression deformity of T4. Also has multilevel degenerative disc disease. - Pain control with Tylenol and lidocaine patch, * Percocet scheduled-has a long history of chronic neck and back pain for which she used to receive injections and see pain management * -daughter also reports pt takes scheduled percocet but is okay with decreasing dose down every 8 hours-now decreased to q12 hours as not requiring it that often * patient denies any increased pain/need for additional pain medication - PT/OT -- rec SNF - Awaiting placement -- at this point, none of the facilities that the patient daughter has provided as preferential have accepted patient (2) Chronic respiratory failure with hypoxia and hypercapnia: Plan: D/t COPD - Baseline O2 is 3L NC, currently sats in the low 90s which is worse as opposed to earlier in this stay - Treated for mild AECOPD with scheduled Xopenex/Atrovent, Budesonide, and Formoterol, and steroids - cxr obtained negative for focal consolidations/infiltrates - Added Mucinex - Tested for flu/rsv/covid on 11/19, negative - Resumed Breo on 11/21 - Continue steroid taper as ordered - May need to resume scheduled nebs 4x per day (3) UTI (urinary tract infection): Plan: Abnormal UA on arrival, urine culture growing ESBL E. coli sensitive to Augmentin, ertapenem, meropenem, nitrofurantoin, Zosyn, and Bactrim Did have a low grade fever here on 2nd hospital day but no signs of sepsis, flank pain, etc. so could be considered uncomplicated UTI Given Rocephin 10/28 x 3 doses, then switched to IV Ertapenem 10/30 with culture results Discussed with pharmacy given ESBL Ecoli, despite sensitivities to Augmentin/Bactrim, pharmacy rec Macrobid or fosfomycin as more known about effectiveness Given additional dose Ertapenem 10/31 and switched to Nitro PO BID and completed 7 day course inpatient Repeat cx more than 3 types, all moderate counts mixed skin aida (4) Depression: Plan: In speaking with the patient's daughter on the phone, she has great concerns about the patient having significant depression. She reports that the patient has become withdrawn even from her favorite family members that she usually speaks to. Is refusing to take phone calls from people. Has been eating very minimally and has lost weight as per daughter. She has also made statements that she wishes her life was over, but is not threatening to harm herself. Daughter is requesting consultation with a therapist or a freight traffic consultant and is interested in perhaps starting her mother on an additional or different anti- depressant. - Remeron would be a good option to stimulate appetite, help with depression, and help with insomnia from which the patient suffers-defer to psychiatry for choice of drug - Consulted urban anthropologist as per daughter's request -- confirmed has visited more than once - Consult psychiatry at daughter's request - reviewed consult, noted some recommendations but no changes made - further discussion w/ daughter requested Paxil be increased. * Increased to 50mg daily --> continue at d/c (5) CAD (coronary artery disease): Plan: HTN, CAD (w h/o CABG), PAF (s/p watchman) - Continue aspirin and metoprolol, statin (6) Dementia: Plan: - continue Seroquel, lamictal, and ativan at bedtime as per daughter for sleep - On Seroquel 50mg at HS and added 25mg daily @ 1200 to assist with late afternoon ing, continue at d/c Plan continued inpatient stay awaiting placement CM following, are looking at in [place] but per CM has not received a call back on whether they will accept. Family aware. CM following, will need to expand bed search to any/all facilities and will need to be discharged to nearest facility that can accept pt Admission and Anticipated Discharge Date Admission Date: October 27, 2021 Subjective Patient was seen on rounds this morning. She remains pleasantly confused this morning but does endorse some back discomfort. Continues to have cough. Review of Systems Review of Systems: Accurate ROS is limited given her dementia but endorses back pain this morning Physical Exam Physical Exam: GENERAL: 81 yo Well-developed, well-nourished WF. NAD. LUNGS: Nonlabored. Posteriorly with mild expiratory wheezes and scattered rhonchi CARDIOVASCULAR: Regular rate and rhythm. ABDOMEN: Soft, non-tender and non-distended. BS normoactive x 4 quad. EXTREMITIES: No edema. Non-tender. Peripheral pulses +2/4. NEUROLOGIC: A&O x1 PSYCHIATRIC: Cooperative. Appropriate mood and affect. SKIN: Warm, dry, intact. No rashes or lesions. Results & Data Results & Data ([facility]) Vital Signs (Past 12 Hours) Vital Signs Temp Pulse Pulse Resp BP Pulse Ox O2 Del Method 11/22/21 09:13 54 L 114/69 11/22/21 09:01 36.6 C 73 16 112/83 96 Room Air PG Care Time/CCT Total # of Minutes Spent Total Time Spent with Patient: Total time spent is greater than 50% in coordination of care (as documented) at patient's floor/unit and/or counseling patient: Coding Level of Care Code 90144 Subseq Hosp Care Lvl 1 Diagnoses Fall W19.XXXA Encounter type: initial encounter Chronic respiratory failure with hypoxia and hypercapnia J96.11; J96.12 UTI (urinary tract infection) N39.0 Depression F32.A CAD (coronary artery disease) I25.10 Associated angina: unspecified whether angina present Coronary Disease-Associated Artery/Lesion type: unspecified vessel or lesion type [place] vs. transplanted heart: unspecified whether [place] or transplanted heart Dementia F03.91 Dementia behavioral disturbance: with behavioral disturbance Dementia type: unspecified type (1) Fall Encounter type: initial encounter Qualified Code(s): W19.XXXA - Unspecified fall, initial encounter (2) CAD (coronary artery disease) Associated angina: unspecified whether angina present Coronary Disease- Associated Artery/Lesion type: unspecified vessel or lesion type [place] vs. transplanted heart: unspecified whether [place] or transplanted heart Qualified Code(s): I25.10 - Atherosclerotic heart disease of [place] coronary artery without angina pectoris (3) Dementia Dementia behavioral disturbance: with behavioral disturbance Dementia type: unspecified type Qualified Code(s): F03.91 - Unspecified dementia with behavioral disturbance
[2021-11-22] MEDS: QUEtiapine FUMARATE 25 MG TABLET PO SCH ×2 (12:05→21:28)
[2021-11-22] MEDS: DOCUSATE SODIUM/SENNA 50/8.6MG TAB PO SCH (21:25)
[2021-11-22] MEDS: LORazepam 0.5 MG TAB PO SCH (21:25)
[2021-11-22] MEDS: LIDOCAINE 5% 1 PATCH TD SCH (21:29)
[2021-11-23] MEDS: ASPIRIN 81 MG ECTAB PO SCH (08:16)
[2021-11-23] MEDS: ATORVASTATIN 40 MG TAB PO SCH (08:16)
[2021-11-23] MEDS: SUCRALFATE 1 GM TAB PO SCH ×3 (08:16→17:27)
[2021-11-23] MEDS: PANTOprazole 40 MG TAB PO SCH ×2 (08:17→21:19)
[2021-11-23] MEDS: lamoTRIgine 100 MG TAB PO SCH ×2 (08:17→21:19)
[2021-11-23] MEDS: FUROSEMIDE 40 MG TAB PO SCH (08:17)
[2021-11-23] MEDS: guaiFENesin 600 MG TABCR PO SCH ×2 (08:17→21:19)
[2021-11-23] MEDS: METOPROLOL SUCC 25MG EXT REL TAB PO SCH (08:17)
[2021-11-23] MEDS: predniSONE 10 MG TABLET PO SCH (08:18)
[2021-11-23] MEDS: PARoxetine HCl CONTROLLED REL 12.5 MG TABCR PO SCH (08:18)
[2021-11-23] MEDS: POTASSIUM CHLORIDE CRTAB 20 MEQ TABCR PO SCH (08:18)
[2021-11-23] MEDS: FLUTICASONE/VILANTEROL 100/25MCG 14 PUFFS/INHALER INH SCH (08:19)
[2021-11-23] MEDS: NICOTINE 14 MG/24 HR PATCH TD SCH (08:19)
[2021-11-23] MEDS: oxyCODONE/ACETAMINOPHEN 10-325 TAB PO SCH ×2 (10:59→21:11)
[2021-11-23] MEDS: QUEtiapine FUMARATE 25 MG TABLET PO SCH ×2 (11:56→21:18)
--- NOTE | 2021-11-23 19:19 | Hospitalist Progress Note ---
Date of Service November 23, 2021 Assessment & Plan (1) Fall: Plan: Admitted after a fall (with history of falls/weakness). Imaging with minimal chronic superior endplate compression deformity of T4. Also has multilevel degenerative disc disease. - Pain generally controled with Tylenol and lidocaine patch, * Percocet scheduled-has a long history of chronic neck and back pain for which she used to receive injections and see pain management * -daughter also reports pt takes scheduled percocet but is okay with decreasing dose down every 8 hours-now decreased to q12 hours as not requiring it that often * patient denies any increased pain/need for additional pain medication - PT/OT -- rec SNF - Awaiting placement -- at this point, none of the facilities that the patient daughter has provided as preferential have accepted patient (2) Chronic respiratory failure with hypoxia and hypercapnia: Plan: D/t COPD - Baseline O2 is 3L NC, currently sats in the low 90s which is worse as opposed to earlier in this stay - Treated for mild AECOPD with scheduled Xopenex/Atrovent, Budesonide, and Formoterol, and steroids - cxr obtained negative for focal consolidations/infiltrates - Continue Mucinex - Negative for flu/rsv/covid on 11/19 - Resumed Breo on 11/21 - Continue steroid taper as ordered - No wheezes today on examination (3) UTI (urinary tract infection): Plan: Abnormal UA on arrival, urine culture growing ESBL E. coli sensitive to Augmentin, ertapenem, meropenem, nitrofurantoin, Zosyn, and Bactrim Did have a low grade fever here on 2nd hospital day but no signs of sepsis, flank pain, etc. so could be considered uncomplicated UTI Given Rocephin 10/28 x 3 doses, then switched to IV Ertapenem 10/30 with culture results Discussed with pharmacy given ESBL Ecoli, despite sensitivities to Augmentin/Bactrim, pharmacy rec Macrobid or fosfomycin as more known about effectiveness Given additional dose Ertapenem 10/31 and switched to Macrobid PO BID and completed 7 day course inpatient Repeat cx more than 3 types, all moderate counts mixed skin aida No acute complaints from the patient today (4) Depression: Plan: Prior provider spoke with the patient's daughter on the phone, she has great concerns about the patient having significant depression. She reports that the patient has become withdrawn even from her favorite family members that she usually speaks to. Is refusing to take phone calls from people. Has been eating very minimally and has lost weight as per daughter. She has also made statements that she wishes her life was over, but is not threatening to harm herself. Daughter is requesting consultation with a therapist or a disbursing officer and is interested in perhaps starting her mother on an additional or different anti- depressant. - Remeron would be a good option to stimulate appetite, help with depression, and help with insomnia from which the patient suffers-defer to psychiatry for choice of drug - Consulted spreader operator automatic as per daughter's request -- confirmed has visited more than once - Consult psychiatry at daughter's request - reviewed consult, noted some recommendations but no changes made - further discussion w/ daughter requested Paxil be increased. * Increased to 50mg daily --> continue at d/c Called to discuss with daughter today. She answered the phone but saoid that she had poor service and would call back. No return call by 19:30 (5) CAD (coronary artery disease): Plan: HTN, CAD (w h/o CABG), PAF (s/p watchman) - Continue aspirin and metoprolol, statin (6) Dementia: Plan: - continue Seroquel, lamictal, and ativan at bedtime as per daughter for sleep - On Seroquel 50mg at HS and added 25mg daily @ 1200 to assist with late afternoon sundowning, continue at d/c Plan Continued inpatient stay awaiting placement CM following, are looking at in [place] but per CM has not received a call back on whether they will accept. Family aware. CM following, will need to expand bed search to any/all facilities and will need to be discharged to [facility] facility that can accept pt Admission and Anticipated Discharge Date Admission Date: October 27, 2021 Subjective attending: Dr. Gonzalez Patient seen and examined at bedside in room 383 bed 1. She is having no new complaints. Pain is generally controlled although she does report that she has increased pain with ambulation and when laying in bed all the time. Discussion with RN. Patient fairly noncompliant. She continues to encourage compliance. No acute complaints Review of Systems Review of Systems: A total of 10 systems was reviewed and is negative other than as listed in the HPI Physical Exam Physical Exam: GENERAL : No acute distress EYES: No icterus, gaze conjugate NOSE: No evidence of epistaxis MOUTH: No lesions or candidiasis NECK: Supple LUNGS: CTA B/L, no wheezes, rales or rhonchi BACK: No tenderness with palpation. HEART: Regular, rate controlled ABDOMEN: Soft, NT, ND, BS Present EXTREMITIES: No LE edema, pedal pulses intact NEURO: A&OX3 Results & Data Results & Data ([facility]) Vital Signs (Past 12 Hours) Vital Signs Temp Pulse Resp BP Pulse Ox O2 Del Method O2 Flow Rate 11/23/21 07:47 Nasal Cannula 2 11/23/21 07:46 36.5 C 72 16 93/57 L 99 Room Air PG Care Time/CCT Total # of Minutes Spent Total Time Spent with Patient: Total time spent is greater than 50% in coordination of care (as documented) at patient's floor/unit and/or counseling patient: Coding Level of Care Code 07117 Subseq Hosp Care Lvl 2 Diagnoses Fall W19.XXXA Encounter type: initial encounter Chronic respiratory failure with hypoxia and hypercapnia J96.11; J96.12 UTI (urinary tract infection) N39.0 Depression F32.A CAD (coronary artery disease) I25.10 Associated angina: unspecified whether angina present Coronary Disease-Associated Artery/Lesion type: unspecified vessel or lesion type [place] vs. transplanted heart: unspecified whether [place] or transplanted heart Dementia F03.91 Dementia behavioral disturbance: with behavioral disturbance Dementia type: unspecified type (1) CAD (coronary artery disease) Associated angina: unspecified whether angina present Coronary Disease- Associated Artery/Lesion type: unspecified vessel or lesion type [place] vs. transplanted heart: unspecified whether [place] or transplanted heart Qualified Code(s): I25.10 - Atherosclerotic heart disease of [place] coronary artery without angina pectoris (2) Dementia Dementia behavioral disturbance: with behavioral disturbance Dementia type: unspecified type Qualified Code(s): F03.91 - Unspecified dementia with behavioral disturbance (3) Fall Encounter type: initial encounter Qualified Code(s): W19.XXXA - Unspecified fall, initial encounter
[2021-11-23] MEDS: LIDOCAINE 5% 1 PATCH TD SCH (21:10)
[2021-11-23] MEDS: LORazepam 0.5 MG TAB PO SCH (21:11)
[2021-11-23] MEDS: DOCUSATE SODIUM/SENNA 50/8.6MG TAB PO SCH (21:18)
[2021-11-24] MEDS: SUCRALFATE 1 GM TAB PO SCH ×3 (08:35→16:41)
[2021-11-24] MEDS: guaiFENesin 600 MG TABCR PO SCH ×2 (08:35→21:02)
[2021-11-24] MEDS: PANTOprazole 40 MG TAB PO SCH ×2 (08:35→21:02)
[2021-11-24] MEDS: lamoTRIgine 100 MG TAB PO SCH ×2 (08:36→21:03)
[2021-11-24] MEDS: METOPROLOL SUCC 25MG EXT REL TAB PO SCH (08:36)
[2021-11-24] MEDS: ATORVASTATIN 40 MG TAB PO SCH (08:36)
[2021-11-24] MEDS: POTASSIUM CHLORIDE CRTAB 20 MEQ TABCR PO SCH (08:36)
[2021-11-24] MEDS: FLUTICASONE/VILANTEROL 100/25MCG 14 PUFFS/INHALER INH SCH (08:38)
[2021-11-24] MEDS: FUROSEMIDE 40 MG TAB PO SCH (08:50)
[2021-11-24] MEDS: ASPIRIN 81 MG ECTAB PO SCH (08:51)
[2021-11-24] MEDS: NICOTINE 14 MG/24 HR PATCH TD SCH (08:51)
[2021-11-24] MEDS: PARoxetine HCl CONTROLLED REL 12.5 MG TABCR PO SCH (08:51)
[2021-11-24] MEDS: predniSONE 10 MG TABLET PO SCH (08:51)
[2021-11-24] MEDS: oxyCODONE/ACETAMINOPHEN 10-325 TAB PO SCH ×2 (10:00→22:20)
[2021-11-24] MEDS: QUEtiapine FUMARATE 25 MG TABLET PO SCH ×2 (11:44→21:03)
[2021-11-24 12:24] LABS: Hematocrit (blood only) 35.2 % (34.1-44.9); Hemoglobin 11.5 g/dl (12.0-16.0); Mean Corpuscular Hgb Conc 32.7 g/dL (32.0-36.0); Mean Corpuscular Volume 85.9 fL (80.0-100.0); Mean Platelet Volume 10.9 fL (9.4-12.3); Platelet Count 198 K/uL (130-400); RDW Coefficient of Variation 15.1 % (11.5-14.5); RDW Standard Deviation 47.8 fL (36.4-46.3); White Blood Count 8.36 K/ul (4.8-10.8)
[2021-11-24 13:27] LABS: BUN Creatinine Ratio 29.3 (10-20); Calcium 8.9 mg/dl (8.5-10.1); Est GFR (African American) 85.4 ml/min; Est GFR (Non-African American) 73.7 ml/min; Magnesium 1.8 mg/dl (1.7-2.4); Potassium 2.9 mmol/L (3.5-5.1)
[2021-11-24] MEDS ORDERED: POTASSIUM CHLORIDE CRTAB 20 MEQ TABCR PO STA (17:35)
[2021-11-24] MEDS ORDERED: MAGNESIUM SULFATE / D5W 1 GM/100 ML BAG IV ONE (17:35)
--- NOTE | 2021-11-24 17:44 | Hospitalist Progress Note ---
Date of Service November 24, 2021 Assessment & Plan (1) Electrolyte imbalance: Plan: Potassium 2.9 this morning. Will replete with KChl 40mEq PO Magnesium 1.8. Will replete with 2 gms Mag Sulfate in D5 Check repeat labs in the morning (2) Fall: Plan: Admitted after a fall (with history of falls/weakness). Imaging with minimal chronic superior endplate compression deformity of T4. Also has multilevel degenerative disc disease. - Pain controled with Tylenol and lidocaine patch * Percocet scheduled-has a long history of chronic neck and back pain for which she used to receive injections and see pain management * -daughter also reports pt takes scheduled percocet but is okay with decreasing dose down every 8 hours-now decreased to q12 hours as not requiring it that often * patient denies any increased pain/need for additional pain medication - PT/OT -- rec SNF - Awaiting placement --new referral placed to a [facility] close to the daughter. They indicate that they may have a room soon. (3) Chronic respiratory failure with hypoxia and hypercapnia: Plan: D/t COPD - Baseline O2 is 3L NC, currently sats in the low 90s which is worse as opposed to earlier in this stay - Treated for mild AECOPD with scheduled Xopenex/Atrovent, Budesonide, and Formoterol, and steroids - cxr obtained negative for focal consolidations/infiltrates - Continue Mucinex - Negative for flu/rsv/covid on 11/19 - Resumed Breo on 11/21 - Continue steroid taper as ordered - No wheezes today on examination -Continue diuresis as needed. Continue with respiratory therapy treatments as needed. -No prior PFTs are available. (4) UTI (urinary tract infection): Plan: Abnormal UA on arrival, urine culture growing ESBL E. coli sensitive to Augmentin, ertapenem, meropenem, nitrofurantoin, Zosyn, and Bactrim Did have a low grade fever here on 2nd hospital day but no signs of sepsis, flank pain, etc. so could be considered uncomplicated UTI Given Rocephin 10/28 x 3 doses, then switched to IV Ertapenem 10/30 with culture results Discussed with pharmacy given ESBL Ecoli, despite sensitivities to Augmentin/Bactrim, pharmacy rec Macrobid or fosfomycin as more known about effectiveness Given additional dose Ertapenem 10/31 and switched to Macrobid PO BID and completed 7 day course inpatient Repeat cx more than 3 types, all moderate counts mixed skin aida No acute complaints from the patient today (5) Depression: Plan: Prior provider spoke with the patient's daughter on the phone, she has great concerns about the patient having significant depression. She reports that the patient has become withdrawn even from her favorite family members that she usually speaks to. Is refusing to take phone calls from people. Has been eating very minimally and has lost weight as per daughter. She has also made statements that she wishes her life was over, but is not threatening to harm herself. Daughter is requesting consultation with a therapist or a retail attendant and is interested in perhaps starting her mother on an additional or different anti- depressant. - Remeron would be a good option to stimulate appetite, help with depression, and help with insomnia from which the patient suffers-defer to psychiatry for choice of drug - Consulted triage clinician as per daughter's request -- confirmed has visited more than once - Consult psychiatry at daughter's request - reviewed consult, noted some recommendations but no changes made - further discussion w/ daughter requested Paxil be increased. * Increased to 50mg daily --> continue at d/c (6) CAD (coronary artery disease): Plan: HTN, CAD (w h/o CABG), PAF (s/p watchman) - Continue aspirin and metoprolol, statin (7) Dementia: Plan: - continue Seroquel, lamictal, and ativan at bedtime as per daughter for sleep - On Seroquel 50mg at HS and added 25mg daily @ 1200 to assist with late afternoon sundowning, continue at d/c Plan Continued inpatient stay awaiting placement [facility] following, are looking at in [place] but per CM has not received a call back on whether they will accept. Family aware. CM following, will need to expand bed search to any/all facilities and will need to be discharged to nearest facility that can accept pt Admission and Anticipated Discharge Date Admission Date: October 27, 2021 Subjective Attending: Dr. Gonzalez Patient seen and examined at bedside. She has no acute complaints. She does have chronic back pain and states that it seems to be somewhat worse today. She has no fever or chills. She has no leg cramping. She has no other acute complaints. Patient does report that she did talk to her daughter that she called back last night. She is currently being referred for placement in a [facility] close to her daughter. She is willing to go there once approval is authorized. Review of Systems Review of Systems: A total of 10 systems was reviewed and is negative other than as listed in the HPI Physical Exam Physical Exam: GENERAL : No acute distress EYES: No icterus, gaze conjugate NOSE: No evidence of epistaxis MOUTH: No lesions or candidiasis NECK: Supple LUNGS: CTA B/L, no wheezes, rales or rhonchi HEART: Regular, rate controlled ABDOMEN: Soft, NT, ND, BS Present EXTREMITIES: No LE edema, pedal pulses intact NEURO: A&OX3 Results & Data Results & Data ([facility]) Vital Signs (Past 12 Hours) Vital Signs Temp Pulse Resp BP Pulse Ox O2 Del Method 11/24/21 16:00 36.6 C 91 H 18 117/78 97 Room Air 11/24/21 08:00 Nasal Cannula Critical Care Results & Data Vital Signs (Past 12 Hours) Vital Signs Temp Pulse Resp BP Pulse Ox O2 Del Method 11/24/21 16:00 36.6 C 91 H 18 117/78 97 Room Air 11/24/21 08:00 Nasal Cannula Lab & Micro Results (Past 24 Hours) RBC 4.10 M/uL (3.93-5.22) 11/24/21 WBC 8.36 K/ul (4.8-10.8) 11/24/21 Hgb 11.5 g/dl (12.0-16.0) L 11/24/21 Hct 35.2 % (34.1-44.9) 11/24/21 MCV 85.9 fL (80.0-100.0) 11/24/21 MCH 28.0 pg (25.0-34.0) 11/24/21 MCHC 32.7 g/dL (32.0-36.0) 11/24/21 RDW Standard Deviation 47.8 fL (36.4-46.3) H 11/24/21 RDW Coefficient of Variation 15.1 % (11.5-14.5) H 11/24/21 Plt Count 198 K/uL (130-400) 11/24/21 MPV 10.9 fL (9.4-12.3) 11/24/21 Na 141 mmol/L (136-145) 11/24/21 K 2.9 mmol/L (3.5-5.1) L 11/24/21 Cl 104 mmol/L (98-107) 11/24/21 CO2 30 mmol/L (21-32) 11/24/21 Anion Gap 7 (3-11) 11/24/21 BUN 22 mg/dl (6-23) 11/24/21 Creatinine 0.75 mg/dl (0.6-1.2) 11/24/21 Estimated GFR ( Amer) 85.4 ml/min 11/24/21 Estimated GFR (Non-Af Amer) 73.7 ml/min 11/24/21 BUN/Creatinine Ratio 29.3 (10-20) H 11/24/21 Glu 120 mg/dl (70-99(Fasting)) H 11/24/21 Ca 8.9 mg/dl (8.5-10.1) 11/24/21 Mg 1.8 mg/dl (1.7-2.4) 11/24/21 11:54 Calcium Level 8.9 mg/dl (8.5-10.1) 11/24/21 11:54 I & O Totals 24 Hours 11/23/21 11/24/21 11/25/21 06:59 06:59 06:59 Intake Total 500 / 500 Output Total 4 / 4 Balance -4 / -4 500 / 500 Cumulative 10/27/21 12:55 thru 11/24/21 12:30 Intake Total 5218.333 Output Total 876 Balance 4342.333 RT Ventilator Mngmt (Last Documented) Ventilator Ordered Settings Respiratory Rate 18 11/24/21 16:00 Ventilator - PT Measurements Respiratory Rate 18 PG Care Time/CCT Total # of Minutes Spent Total Time Spent with Patient: Total time spent is greater than 50% in coordination of care (as documented) at patient's floor/unit and/or counseling patient: Coding Level of Care Code 16026 Subseq Hosp Care Lvl 2 Diagnoses Electrolyte imbalance E87.8 Fall W19.XXXA Encounter type: initial encounter Chronic respiratory failure with hypoxia and hypercapnia J96.11; J96.12 UTI (urinary tract infection) N39.0 Depression F32.A CAD (coronary artery disease) I25.10 Associated angina: unspecified whether angina present Coronary Disease-Associated Artery/Lesion type: unspecified vessel or lesion type [place] vs. transplanted heart: unspecified whether [place] or transplanted heart Dementia F03.91 Dementia behavioral disturbance: with behavioral disturbance Dementia type: unspecified type (1) Fall Encounter type: initial encounter Qualified Code(s): W19.XXXA - Unspecified fall, initial encounter (2) CAD (coronary artery disease) Associated angina: unspecified whether angina present Coronary Disease- Associated Artery/Lesion type: unspecified vessel or lesion type [place] vs. transplanted heart: unspecified whether [place] or transplanted heart Qualified Code(s): I25.10 - Atherosclerotic heart disease of [place] coronary artery without angina pectoris (3) Dementia Dementia behavioral disturbance: with behavioral disturbance Dementia type: unspecified type Qualified Code(s): F03.91 - Unspecified dementia with behavioral disturbance
[2021-11-24] MEDS: LORazepam 0.5 MG TAB PO SCH (21:01)
[2021-11-24] MEDS: MELATONIN 3 MG TAB PO PRN (21:01)
[2021-11-24] MEDS: DOCUSATE SODIUM/SENNA 50/8.6MG TAB PO SCH (21:02)
[2021-11-24] MEDS: POTASSIUM CHLORIDE / WTR 10 MEQ/100 ML PLCT IV SCH ×3 (21:04→23:28)
[2021-11-24] MEDS: ACETAMINOPHEN 325 MG TAB PO PRN (21:04)
[2021-11-24] MEDS: LIDOCAINE 5% 1 PATCH TD SCH (21:08)
[2021-11-25] MEDS: SUCRALFATE 1 GM TAB PO SCH (06:37)
--- NOTE | 2021-11-25 08:17 | Discharge Summary ---
Date of Service November 25, 2021 Admission HPI Per Admitting Provider 81 YOF with medical history of: PAF(watchman's procedure), AICD secondary to CM, MR, CAD with CABG, COPD, GERD, Frequent Falls, Dementia, COVID and influenza 01/25 who presented to the [facility] ED on 10/27/21 with a chief complaint of fall. In the ED the patient was found to be afebrile, hemodynamically stable, and stable on 3L NC. Trauma scans including xray of the wrsit, thoracic spine CT, head CT, chest CT, and cervical spine CT were negative for acute trauma. Labs were remarkable for a potassium of 3.0, high sensitivity troponin of 16.6. At the time of the exam the patient was resting comfortably in bed in no acute distress. History is difficult to obtain as patient has a history of dementia. The patient knows who she is and where she is, she tells me she is here because she fell out of bed. She states that her neck and right wrist hurt but has no other complaints at this time. I called and spoke to her Daughter (Kristine [phone]) to get the rest of the history. She states that her mother was initially in a [facility] a few months ago for recurrent falls but her daughter brought her back home when the patient was begging her. Initially the patient was doing well at her daughter's home with PT/OT but she has become progressively less compliant, aggressive, weak, and has had multiple falls over the past week. Her Daughter states that she cannot safely take care of her mother at this time and she will need to be placed again. She confirmed that the patient is normally on 3L NC at all times and is a DNR/DNI. Admission Exam Per Admitting Provider Physical Exam: General:In no acute distress, stated age, chronically ill-appearing HEENT:Normocephalic, atraumatic, no scleral icterus, pupils around round, symmetrical, and reactive to light, moist mucus membranes, trachea midline, no thyromegaly Chest/Pulm:Currently on 3L NC,No respiratory distress, symmetrical chest expansion, expiratory wheezing noted throughout Cardiac:RRR, systolic murmur noted Abdomen:Negative for ascites and bruising, normoactive bowel sounds, soft, non-tender to palpation throughout Musculoskeletal:Patient is tender to palpation over the cervical spine but without acute trauma or crepitus, pain/tenderness to the right wrist but has full ROM of the upper and lower extremities, no other acute trauma noted Extremities:Radial, dorsalis pedis, and posterior tibial pulses are intact and symmetrical, no edema noted in the BL LE's Skin:Warm, dry, no rashes , lesions, or scars noted Neuro:Alert and oriented to person and place but not to month, year, or president, no focal defects, CN II-XII tested and intact Psych:No acute distress, calm and cooperative during the exam Principal Diagnosis Recurrent Falls, Electrolyte Abnormality, 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 Discharge Exam General: WD/WN 81yo female sitting in bed, watching TV, babydoll in bed with patient, NAD HEENT: head normocephalic, atraumatic, mmm, trachea midline without deviation Resp: CTAB, no w/c/r, on room CV: RRR, +murmur, no calf tenderness, no pitting edema, pulses palpable GI: +BS, soft nontender MSK/Neuro: moves all extremities, no focal deficit Psych alert to person/place, wanting to go home, cooperative Skin: warm, dry Discharge Data Allergies Allergy/AdvReac Type Severity Reaction Status Date / Time No Known Allergies Allergy Verified 07/10/21 10:55 Consultations 10/27/21 17:02 ED Decision to Admit Stat 10/31/21 18:47 Consult Psychiatry Routine Ordered Studies Cervical Spine CT 10/27/21 13:[address] DOSE: HISTORY: Neck pain. fall TECHNIQUE: Multiaxial CT images of the cervical spine were performed and reformatted in the sagittal and coronal plane without the use of contrast. A dose lowering technique was utilized adhering to the principles of ALARA. COMPARISON: Cervical spine CT 07/10/2021. FINDINGS: No fractures. Prevertebral soft tissues and the C1-C2 interval are intact. No pneumothorax. Left-sided pacemaker wires are noted. Emphysema. Interstitial thickening within the right lung apex. Moderate to severe disc space narrowing from C3 through C7, unchanged. There is stable 2 mm of autumn listhesis of C3 on C4 likely due to the long-standing degenerative change. IMPRESSION: No fractures within the cervical spine. ACT 112: Negative or not required by law. Electronically signed by: Fred Corbett M.D. 10/27/2021 3:[address] 10/27/21 13:57 CT SCAN OF THE CHEST WITHOUT IV CONTRAST; CT SCAN OF THE THORACIC SPINE WITHOUT IV CONTRAST CLINICAL HISTORY: Trauma. Fall. COMPARISON STUDY: Chest x-ray dated 10/27/2021. Chest CT dated 02/28/2021. TECHNIQUE: CT scan of the thorax was performed from the thoracic inlet to the upper abdomen. Additionally, CT scan of the thoracic spine is performed from the lower cervical spine to the upper lumbar spine. Images for both examinations are reviewed in the axial, sagittal, and coronal planes. IV contrast was not administered for this examination as per the referring clinician. A dose lowering technique was utilized adhering to the principles of ALARA. CT DOSE: 1666.95 mGy.cm FINDINGS: Thyroid: Normal in size and heterogeneous in attenuation. Thoracic aorta: There is atherosclerotic calcification of the thoracic aorta, which is normal in caliber and demonstrates standard 3-vessel arch anatomy. Heart: A cardiac pacemaker is present in the left chest wall. The patient is status post midline sternotomy appear The heart is enlarged and without pericardial effusion. There is diminished attenuation of the cardiac blood pool as compared to the myocardium suggesting anemia. The coronary arteries are densely calcified. A presumed occlusion device is noted in the left atrial appendage. Lungs and pleural spaces: Evaluation of the lung parenchyma is degraded by motion artifact. The trachea and central airways are clear. There is moderate emphysema. No airspace consolidation, pleural effusion, or pneumothorax is identified. Foci of probable scarring/atelectasis are seen throughout both lungs. There are scattered calcified granulomas. A 6 mm pulmonary nodule in the right lower lobe is seen on image #198. Mediastinum: There is no mediastinal hematoma or lymphadenopathy. Tammie: Not well assessed without IV contrast. Axillae: There is no axillary lymphadenopathy. Upper abdomen: There is a calcified hepatic granuloma. Partially visualized upper abdominal viscera is otherwise grossly unremarkable. Skeletal structures: The skeletal structures are osteopenic. See below for dedicated discussion of the thoracic spine. No lytic or blastic bony lesions are seen. The bony thorax appears intact. There is a mild chronic superior endplate compression deformity of L1. THORACIC SPINE: There is a minimal chronic superior endplate compression deformity of T4. Vertebral body height and alignment are otherwise maintained throughout the thoracic spine. There is no evidence of fracture or malalignment. Anterior osteophytes are seen throughout. The transverse and spinous processes are intact. There is multilevel degenerative disc space narrowing with associated endplate sclerosis. This is greatest between T8-T9 and T11-T12. There is no CT evidence of large disc herniation or high-grade central canal stenosis The paraspinous soft tissues are normal in appearance. IMPRESSION: 1. There is no acute posttraumatic intrathoracic abnormality. 2. There is no airspace consolidation, pleural effusion, or pneumothorax. 3. There is no evidence of fracture or malalignment involving the thoracic spine. 4. Cardiomegaly and emphysema. 5. There is a 6 mm right lower lobe pulmonary nodule. This is is unchanged from previous and can be followed as per the Fleischner criteria. See below. 6. Additional findings as above. Please refer to below summary of Fleischner criteria recommendations for follow- up of incidental CT nodules (Lisseth Quiñones, Guidelines for management of small pulmonary nodules detected on CT scans: A statement from the Fleischner Society, Radiology 237: [phone].) SOLID NODULES Solitary nodule size: <6 mm * low risk patients: no follow-up needed * high risk patients: optional CT at 12 months Solitary nodule size: 6-8 mm * low risk patients: follow-up at 6-12 months, then consider further follow-up at 18-24 months * high risk patients: initial follow-up CT at 6-12 months and then at 18-24 months if no change Solitary nodule size: >8 mm * either low or high risk patients - consider follow-up CT at 3 months, and/or CT-PET, and/or biopsy Multiple nodules size: <6 mm * low risk patients: no routine follow-up * high risk patients: optional CT at 12 months Multiple nodules size: 6-8 mm * low risk patients: follow-up at 3-6 months, then consider further follow-up at 18-24 months * high risk patients: follow-up at 3-6 months, then at 18-24 months if no change Multiple nodules size: >8 mm * low risk patients: follow-up at 3-6 months, then consider further follow-up at 18-24 months * high risk patients: follow-up at 3-6 months, then at 18-24 months if no change Note: newly detected indeterminate nodule in persons 35 years of age or older. * low risk patients: minimal or absent history of smoking and/or other known risk factors * high risk patients: history of smoking or of other known risk factors (e.g. first degree relative with lung cancer, or exposure to asbestos, radon, uranium) * if a nodule up to 8 mm is partly solid or is ground glass further follow-up is required after 24 months to exclude possible slow growing adenocarcinoma (CAYLA) SUBSOLID NODULES Solitary pure ground-glass nodule * nodule size <6 mm - no CT follow-up required * nodule size >=6 mm - follow-up CT at 6-12 months, then every 2 years until 5 years Solitary part-solid nodule * nodule size <6 mm - no CT follow-up required * nodule size >=6 mm - follow-up CT at 3-6 months. If unchanged, and solid component remains <6 mm, then annual follow-up for 5 years Multiple subsolid nodules * nodule size <6 mm - follow-up CT at 3-6 months, consider further follow-up at 2 and 4 years if stable * nodule size >=6 mm - follow-up CT at 3-6 months, subsequent management based on the most suspicious nodule(s) ACT 112: Negative or not required by law. Electronically signed by: Doe Thibodeaux M.D. 10/27/2021 3:29 PM Chest X-Ray 10/27/21 13:57 XR chest 1V portable HISTORY: 81 years-old Female Chest Pain . Acute atypical chest pain COMPARISON: Chest radiograph 07/10/2021 TECHNIQUE: Portable AP view of the chest FINDINGS: Cardiac silhouette is enlarged. Prior median sternotomy. Left subclavian pacer/AICD. An occlusion device projects over the left heart border. Atherosclerosis of the thoracic aorta. No pneumothorax, pleural effusion, airspace consolidation or overt pulmonary edema. Chronic interstitial coarseni ng. Degenerative changes of the shoulders and spine. IMPRESSION: Cardiomegaly without acute process. ACT 112: Negative or not required by law. The above report was generated using voice recognition software. It may contain grammatical, syntax or spelling errors. Electronically signed by: Monster Viera M.D. 10/27/2021 2:[address] 10/27/21 13:57 CT head/brain wo con CLINICAL HISTORY: 81 years-old Female with fall. Acute head trauma status post fall TECHNIQUE: Multiple axial CT images of the head were obtained without contrast. A dose lowering technique was utilized adhering to the principles of ALARA. COMPARISON: Head CT 07/10/2021 FINDINGS: No acute intracranial hemorrhage, midline shift, intracranial mass, hydrocephalus, territorial ischemia or abnormal extra-axial collection. Age- related involutional changes with ex vacuo ventriculomegaly. Extensive white matter hypodensities suggest chronic microvascular ischemic disease. Cerebral vascular and senescent basal ganglia calcifications. The calvarium is intact. Prior bilateral lens repair. Paranasal sinuses, mastoid air cells, and middle ear cavities are clear. IMPRESSION: No acute intracranial abnormality or calvarial fracture. ACT 112: Negative or not required by law. The above report was generated using voice recognition software. It may contain grammatical, syntax or spelling errors. Electronically signed by: Monster Viera M.D. 10/27/2021 3:[address] 10/27/21 13:57 CT SCAN OF THE CHEST WITHOUT IV CONTRAST; CT SCAN OF THE THORACIC SPINE WITHOUT IV CONTRAST CLINICAL HISTORY: Trauma. Fall. COMPARISON STUDY: Chest x-ray dated 10/27/2021. Chest CT dated 02/28/2021. TECHNIQUE: CT scan of the thorax was performed from the thoracic inlet to the upper abdomen. Additionally, CT scan of the thoracic spine is performed from the lower cervical spine to the upper lumbar spine. Images for both examinations are reviewed in the axial, sagittal, and coronal planes. IV contrast was not administered for this examination as per the referring clinician. A dose lowering technique was utilized adhering to the principles of ALARA. CT DOSE: 1666.95 mGy.cm FINDINGS: Thyroid: Normal in size and heterogeneous in attenuation. Thoracic aorta: There is atherosclerotic calcification of the thoracic aorta, which is normal in caliber and demonstrates standard 3-vessel arch anatomy. Heart: A cardiac pacemaker is present in the left chest wall. The patient is status post midline sternotomy appear The heart is enlarged and without pericardial effusion. There is diminished attenuation of the cardiac blood pool as compared to the myocardium suggesting anemia. The coronary arteries are de nsely calcified. A presumed occlusion device is noted in the left atrial appendage. Lungs and pleural spaces: Evaluation of the lung parenchyma is degraded by motion artifact. The trachea and central airways are clear. There is moderate emphysema. No airspace consolidation, pleural effusion, or pneumothorax is identified. Foci of probable scarring/atelectasis are seen throughout both lungs. There are scattered calcified granulomas. A 6 mm pulmonary nodule in the right lower lobe is seen on image #198. Mediastinum: There is no mediastinal hematoma or lymphadenopathy. Tammie: Not well assessed without IV contrast. Axillae: There is no axillary lymphadenopathy. Upper abdomen: There is a calcified hepatic granuloma. Partially visualized upper abdominal viscera is otherwise grossly unremarkable. Skeletal structures: The skeletal structures are osteopenic. See below for dedicated discussion of the thoracic spine. No lytic or blastic bony lesions are seen. The bony thorax appears intact. There is a mild chronic superior endplate compression deformity of L1. THORACIC SPINE: There is a minimal chronic superior endplate compression deformity of T4. Vertebral body height and alignment are otherwise maintained throughout the thoracic spine. There is no evidence of fracture or malalignment. Anterior osteophytes are seen throughout. The transverse and spinous processes are intact. There is multilevel degenerative disc space narrowing with associated endplate sclerosis. This is greatest between T8-T9 and T11-T12. There is no CT evidence of large disc herniation or high-grade central canal stenosis The paraspinous soft tissues are normal in appearance. IMPRESSION: 1. There is no acute posttraumatic intrathoracic abnormality. 2. There is no airspace consolidation, pleural effusion, or pneumothorax. 3. There is no evidence of fracture or malalignment involving the thoracic spine. 4. Cardiomegaly and emphysema. 5. There is a 6 mm right lower lobe pulmonary nodule. This is is unchanged from previous and can be followed as per the Fleischner criteria. See below. 6. Additional findings as above. Please refer to below summary of Fleischner criteria recommendations for follow- up of incidental CT nodules (Lisseth Quiñones, Guidelines for management of small pulmonary nodules detected on CT scans: A statement from the Fleischner Society, Radiology 237: [phone].) SOLID NODULES Solitary nodule size: <6 mm * low risk patients: no follow-up needed * high risk patients: optional CT at 12 months Solitary nodule size: 6-8 mm * low risk patients: follow-up at 6-12 months, then consider further follow-up at 18-24 months * high risk patients: initial follow-up CT at 6-12 months and then at 18-24 months if no change Solitary nodule size: >8 mm * either low or high risk patients - consider follow-up CT at 3 months, and/or CT-PET, and/or biopsy Multiple nodules size: <6 mm * low risk patients: no routine follow-up * high risk patients: optional CT at 12 months Multiple nodules size: 6-8 mm * low risk patients: follow-up at 3-6 months, then consider further follow-up at 18-24 months * high risk patients: follow-up at 3-6 months, then at 18-24 months if no change Multiple nodules size: >8 mm * low risk patients: follow-up at 3-6 months, then consider further follow-up at 18-24 months * high risk patients: follow-up at 3-6 months, then at 18-24 months if no change Note: newly detected indeterminate nodule in persons 35 years of age or older. * low risk patients: minimal or absent history of smoking and/or other known risk factors * high risk patients: history of smoking or of other known risk factors (e.g. first degree relative with lung cancer, or exposure to asbestos, radon, uranium) * if a nodule up to 8 mm is partly solid or is ground glass further follow-up is required after 24 months to exclude possible slow growing adenocarcinoma (CAYLA) SUBSOLID NODULES Solitary pure ground-glass nodule * nodule size <6 mm - no CT follow-up required * nodule size >=6 mm - follow-up CT at 6-12 months, then every 2 years until 5 years Solitary part-solid nodule * nodule size <6 mm - no CT follow-up required * nodule size >=6 mm - follow-up CT at 3-6 months. If unchanged, and solid component remains <6 mm, then annual follow-up for 5 years Multiple subsolid nodules * nodule size <6 mm - follow-up CT at 3-6 months, consider further follow-up at 2 and 4 years if stable * nodule size >=6 mm - follow-up CT at 3-6 months, subsequent management based on the most suspicious nodule(s) ACT 112: Negative or not required by law. Electronically signed by: Doe Thibodeaux M.D. 10/27/2021 3:29 PM Wrist X-Ray 10/27/21 13:59 RIGHT WRIST 4 VIEWS CLINICAL HISTORY: Fall. Right wrist pain. FINDINGS: 4 views of the right wrist are obtained. No prior studies are available for comparison at the time of dictation. The skeletal structures are osteopenic. No acute fracture is seen. There is chronic posttraumatic deformity of the distal radius with a buttress plate along the volar cortex. The orthopedic hardware appears intact. There is a chronic avulsion injury of the ulnar styloid. Degenerative narrowing is seen at the radiocarpal articulation. 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 Milder degenerative change is seen throughout the remainder of the wrist. There is chondrocalcinosis of the triangular fibrocartilage. Mild soft tissue swelling is suggested dorsally. IMPRESSION: 1. No acute fracture is identified. 2. Osteopenia with chronic posttraumatic, postoperative, and degenerative changes as above. Electronically signed by: Doe Thibodeaux M.D. 10/27/2021 2:44 PM Chest X-Ray 11/18/21 10:44 XR chest 1V portable HISTORY: 81 years-old Female wheezing, cough acute cough with wheezing COMPARISON: Chest radiograph 10/27/2021 TECHNIQUE: AP view of the chest FINDINGS: Cardiac silhouette is enlarged. Prior median sternotomy. Occlusion device projects over the left heart border. Left subclavian pacer/AICD. No pneumothorax, pleural effusion or overt pulmonary edema. Mild chronic interstitial coarsening. Degenerative changes of the shoulders and spine. IMPRESSION: Cardiomegaly without acute process. ACT 112: Negative or not required by law. The above report was generated using voice recognition software. It may contain grammatical, syntax or spelling errors. Electronically signed by: Monster Viera M.D. 11/18/2021 11:14 AM Hospital Course (1) Fall: Admitted after a fall (with history of falls/weakness), and found to have low potassium. CT head/neck without acute CVA or fracture Imaging with minimal chronic superior endplate compression deformity of T4. Also has multilevel degenerative disc disease. Pain controlled with Tylenol and lidocaine patch --> had been using decent amount of opiates at home, suspect was contributing Percocet scheduled Q12 -- has a long history of chronic neck and back pain for which she used to receive injections and see pain management and taking Q8h as needed but had been stable on BID dosing PT/OT -- rec SNF Long waiting period for SNF placement as wanting to be in home close to daughter --> arrangements made for [facility] (2) Electrolyte imbalance: K 2.9 on 11/24, Mag 1.8 --> repeat wnl Repeat labs next week to ensure stabilty D/c on home PO Kcl supplementation (3) Chronic respiratory failure with hypoxia and hypercapnia: D/t COPD Baseline 2L NC, stays on room air at times/takes O2 off at rest tx for mild acute exacerbation last week, prednisone taper w/ reported improvement and to continue 20mg x 3 days, decrease to 10mg x 3 then stop continue mucinex, breo, inhalers Continue daily lasix Breathing stable on exam prior to d/c RSV/Covid/flu negative on repeat while inpatient when start acute ex 11/19 and was NEGATIVE Consider outpt f/u PFT testing (4) UTI (urinary tract infection): Abnormal UA on arrival, urine culture growing ESBL E. coli sensitive to Augmentin, ertapenem, meropenem, nitrofurantoin, Zosyn, and Bactrim Did have a low grade fever here on 2nd hospital day but no signs of sepsis, flank pain, etc. so could be considered uncomplicated UTI Given Rocephin 10/28 x 3 doses, then switched to IV Ertapenem 10/30 with culture results Discussed with pharmacy given ESBL Ecoli, despite sensitivities to Augmentin/Bactrim, pharmacy rec Macrobid or fosfomycin as more known about effectiveness Given additional dose Ertapenem 10/31 and switched to Macrobid PO BID and completed 7 day course inpatient Repeat cx more than 3 types, all moderate counts mixed skin aida No acute complaints from the patient today (5) Depression: Prior provider spoke with the patient's daughter on the phone, she has great concerns about the patient having significant depression. She reports that the patient has become withdrawn even from her favorite family members that she usually speaks to. Is refusing to take phone calls from people. Has been eating very minimally and has lost weight as per daughter. She has also made statements that she wishes her life was over, but is not threatening to harm herself. Daughter is requesting consultation with a therapist or a capacity manager and is interested in perhaps starting her mother on an additional or different anti- depressant. - Remeron would be a good option to stimulate appetite, help with depression, and help with insomnia from which the patient suffers-defer to psychiatry for choice of drug - Consulted planning feeder as per daughter's request -- confirmed has visited more than once - Consulted psychiatry at daughter's request - reviewed consult, noted some recommendations but no changes made - further discussion w/ daughter requested Paxil be increased. * Increased to 50mg daily --> continued at d/c (6) CAD (coronary artery disease): HTN, CAD (w h/o CABG), PAF (s/p watchman), ischemic cardiomyopathy, s/p AICD, chronic systolic CHF Elevated trop 16.6 on labs in ER, peaked at 20, trended down. - Continued aspirin and metoprolol, statin continue ASA, BB, statin, lasix Metoprolol was decreased to 12.5mg daily due to SBP <100 . Had attempted to resume and increased back to 25mg but again SBP low rec'd to continue low dose metoprolol 12.5mg daily. (had episode wide complex tachycardia in February when off this medication) (7) Dementia: - continue Seroquel, lamictal, and ativan at bedtime as per daughter for sleep - On Seroquel 50mg at HS and added 25mg daily @ 1200 to assist with late afternoon sundowning--> continued at d/c Plan discharged to [facility] [facility] to be [facility] to daughter Total Time Total Time Spent Total Time Spent (In Minutes): 70 Discharge Plan Discharge Items Patient Disposition: Transfer [facility] Reason For Visit: FALLS Discharge Diagnosis: Falls Goals: You have been hospitalized for an acute medical problem. During your stay at [facility], we have made an effort to correct the problem that brought you to the hospital while keeping you as comfortable as possible. Medications were used to bring your condition under control and your discharge instructions will include directions for any medications you should take after leaving the hospital. Please make sure you see your Primary Care Provider as part of your follow up plan. Activity: As commented below Non-emergency contact: Primary Care Provider Call non-emergency contact if: you have any medication questions, your symptoms worsen, your pain is not controlled and you have a fever Follow-up/Referrals: Bony Guerrero M.D. [Primary Care Provider] - Diet: Heart Healthy Ambulatory Orders: Basic Metabolic Panel (Routine) Timeframe: 1 Week Location: Determined by Patient Ordered By: Sharri Rivera Attending Provider Instructions: You have been hospitalized for falls. Your electrolytes were abnormal and replacement was ordered. You were treated for a urinary tract infection while in the hospital as well. We have made adjustments to your medications to help prevent issues in the future. You will continue paxil 50mg daily for depression symptoms. You will also continue seroquel 50mg at night and 25mg at lunch time to help with ing. Your metoprolol was decreased to 12.5mg daily to prevent low blood pressures that could contribute to falls. You will continue steroids with prednisone 20mg for tomorrow and 11/27, then decrease to 10mg daily for 3 days then stop. You should continue the Breo inhaler daily as well for your underlying COPD. You should follow up with primary care in the next 7-10 days. Please return to the ER with any worsening symptoms, or for any symptoms concerning for you. We have made arrangements for you to go to [facility] at discharge. Recommend you repeat your electrolyte with labs next week to ensure stability at personal care. It has been a pleasure being a part of the medical team providing for you while you have been in the hospital. Take care! Pending Studies at Discharge: No Stand-Alone Forms: My [employer], Smoking Cessation Skilled Items Patient informed of condition?: Yes DNR: Yes Discharge Level of Care: Other Communicable Disease: No Discharge Prognosis: Stable Lines: None Urinary Catheter: No Medications and DC Order Prescriptions: New quetiapine 25 mg Tablet 25 mg PO DAILY@1200 Qty: 30 0RF quetiapine 25 mg Tablet 50 mg PO HS Qty: 60 0RF prednisone 10 mg Tablet 10 mg PO DAILY Qty: 3 0RF prednisone 20 mg Tablet 20 mg PO DAILY Qty: 2 0RF melatonin 3 mg Tablet 3 mg PO HS PRN (Reason: sleep) Qty: 30 0RF oxycodone-acetaminophen 10-325 mg Tablet 1 tab PO Q12H Qty: 20 0RF pantoprazole 40 mg Tablet,Delayed Release (Dr/Ec) 40 mg PO BID Qty: 60 0RF lidocaine 5 % Adhesive Patch,Medicated 1 patch transdermal HS Qty: 3 0RF metoprolol succinate 25 mg Tablet Extended Release 24 Hr 12.5 mg PO QAM Qty: 30 0RF paroxetine HCl 12.5 mg Tablet Extended Release 24 Hr 50 mg PO DAILY Qty: 30 0RF guaifenesin [Mucinex] 600 mg Tablet Extended Release 12hr 600 mg PO Q12 Qty: 30 0RF Continued furosemide 40 mg tablet 40 mg PO QAM atorvastatin 40 mg tablet 40 mg PO DAILY@1500 sennosides-docusate sodium [Stool Softener-Laxative] 8.6-50 mg tablet 1 tab PO HS potassium chloride 20 mEq tablet,ER particles/crystals 20 meq PO DAILY@1500 lamotrigine 100 mg tablet 100 mg PO AMHS Movantik 25 mg tablet 25 mg PO QAM One-A-Day Proactive 65 Plus 200 mcg tablet 1 tab PO DAILY Daily Probiotic (10 Strains) 4 billion cell capsule 1 cap PO DAILY@1200 fluticasone furoate-vilanterol [Breo Ellipta] 100-25 mcg/dose blister with device 1 inh INHALATION DAILY omeprazole 20 mg Capsule,Delayed Release(Dr/Ec) 20 mg PO BID cyanocobalamin (vitamin B-12) 500 mcg Tablet 500 mcg PO DAILY biotin 10,000 mcg capsule 10,000 mcg PO DAILY sucralfate 1 gram tablet 1 g PO TID aspirin 81 mg tablet,delayed release (DR/EC) 81 mg PO QAM lorazepam 0.5 mg tablet 0.5 mg PO HS Discontinued oxycodone-acetaminophen 10-325 mg tablet 1 tab PO QID paroxetine HCl 37.5 mg tablet extended release 24 hr 37.5 mg PO QAM metoprolol succinate 25 mg tablet extended release 24 hr 25 mg PO QAM quetiapine 25 mg tablet 50 mg PO HS 30 Days Qty: 1 0RF Rx Instructions: 3 tablet dose Discharge Orders: Discharge Order (Routine); Ordered 11/25/21 Ordered By: Sharri Justice Admission Data Admit Date/Time: 10/27/21 18:16 Attending Provider: Shad Gonzalez Admit Provider: Kamar Metcalf Primary Care Provider: Bony Guerrero Other Providers: Kamar Metcalf ; Iraida Wood ; Deidra Harry ; Sonia Zacarias ; Raghav Garcia ; [facility] Other Interventions: Discharge Summary Assessment (RN) Last Done: 11/25/21 11:03 Coding Level of Care Code D/C DAY MANAGEMENT >30 MINS Diagnoses Fall W19.XXXA Encounter type: initial encounter Electrolyte imbalance E87.8 Chronic respiratory failure with hypoxia and hypercapnia J96.11; J96.12 UTI (urinary tract infection) N39.0 Depression F32.A CAD (coronary artery disease) I25.10 Associated angina: unspecified whether angina present Coronary Disease-Associated Artery/Lesion type: unspecified vessel or lesion type [place] vs. transplanted heart: unspecified whether [place] or transplanted heart Dementia F03.91 Dementia behavioral disturbance: with behavioral disturbance Dementia type: unspecified type
[2021-11-25] MEDS ORDERED: predniSONE 20 MG TAB PO SCH (09:00)
[2021-11-25] MEDS: ASPIRIN 81 MG ECTAB PO SCH (09:01)
[2021-11-25] MEDS: lamoTRIgine 100 MG TAB PO SCH (09:02)
[2021-11-25] MEDS: NICOTINE 14 MG/24 HR PATCH TD SCH (09:02)
[2021-11-25] MEDS: FLUTICASONE/VILANTEROL 100/25MCG 14 PUFFS/INHALER INH SCH (09:02)
[2021-11-25] MEDS: ATORVASTATIN 40 MG TAB PO SCH (09:02)
[2021-11-25] MEDS: guaiFENesin 600 MG TABCR PO SCH (09:02)
[2021-11-25] MEDS: FUROSEMIDE 40 MG TAB PO SCH (09:02)
[2021-11-25] MEDS: METOPROLOL SUCC 25MG EXT REL TAB PO SCH (09:03)
[2021-11-25] MEDS: PANTOprazole 40 MG TAB PO SCH (09:04)
[2021-11-25] MEDS: PARoxetine HCl CONTROLLED REL 12.5 MG TABCR PO SCH (09:04)
[2021-11-25] MEDS: POTASSIUM CHLORIDE CRTAB 20 MEQ TABCR PO SCH (09:04)
[2021-11-25] MEDS: oxyCODONE/ACETAMINOPHEN 10-325 TAB PO SCH (09:09)
[2021-11-25 09:16] LABS: BUN Creatinine Ratio 29.6 (10-20); Calcium 9.2 mg/dl (8.5-10.1); Creatinine Clr Calc Pharmacy 47.5 ml/min; Est GFR (African American) 91.3 ml/min; Est GFR (Non-African American) 78.8 ml/min; Magnesium 2.2 mg/dl (1.7-2.4); Potassium 3.8 mmol/L (3.5-5.1)
[2021-11-28] MEDS ORDERED: predniSONE 10 MG TABLET PO SCH (09:00)
== END 2021-11-25 11:03 | DRG 690 ==
LOC: ED 12:55 → 3N 18:16 → SUATTDRO 18:16 → 3N 20:09

== ENCOUNTER 2023-10-15 02:44 | Inpatient (IN) ==
[2023-10-15 03:13] LABS: Hemoglobin 12.4 g/dl (12.0-16.0); Mean Corpuscular Hemoglobin 31.1 pg (25.0-34.0); Mean Corpuscular Volume 100.3 fL (80.0-100.0); Mean Platelet Volume 10.3 fL (9.4-12.4); Platelet Count 160 K/uL (130-400); RDW Standard Deviation 48.4 fL (36.4-46.3); Red Blood Count 3.99 M/uL (4.20-5.40); White Blood Count 6.23 K/ul (4.8-10.8)
--- NOTE | 2023-10-15 03:20 | Emergency Department Note ---
Impression & Plan Acute exacerbation of chronic obstructive pulmonary disease, Hypoxia, COVID, Acute UTI, Acute dehydration, Acute alteration in mental status [facility] Note NAME: JENNI ARECHIGA AGE: 83 SEX: Female INFORMANT: Patient ED PROVIDER(S): No Vasquez DO CHIEF COMPLAINT: shortness of breath PLAN: Disposition: Admit to the Health System MEDICAL DECISION MAKING: this is an 83-year-old female patient from [facility] who presents to the emergency department with increased shortness of breath. Patient had been diagnosed on October 08 with COVID and had seemingly been improving but suddenly tonight had worsening shortness of breath, hypoxia, and altered mental status. Patient's daughter gives most of the history. EMS provided some of the history. Patient's daughter says she has had significant decreased in oral intake and became increasingly confused tonight. EMS found the patient's O2 saturation in the 60s. Patient is currently on 10 L of oxygen oximask and has O2 saturations in the 90s. Laboratory studies reveal no leukocytosis or anemia. Troponin is negative. Glucose is 161. Renal function is normal. Patient does have a urinary tract infection which could be contributing to her altered mental status. [facility] and [facility] will admit to the emergency department for further inpatient care. I have reviewed multiple previous urine cultures patient does have resistant bacteria. I chose piperacillin/tazobactam as bacteria has been susceptible to that in the past. Triage Nursing notes: reviewed and agree with them. Vital Signs: reviewed and remarkable for tachycardia and tachypnea Additional History obtained from: EMS and the patient's daughter who is at the bedside Chronic Medical/Social Conditions affecting care: COPD Prior/ Outside/ External records reviewed: I reviewed previous inpatient hospitalizations. Differential Diagnosis: respiratory failure, pneumonia, UTI COVID fog, dehydration hypoglycemia Diagnostics, independently interpreted by me: ECG: sinus tachycardia at a rate of 124 with T wave inversions in the inferior leads. There are flattened T waves in the lateral leads. Cardiac Monitoring: sinus tachycardia at 124 Imaging studies: portable chest x-ray as per my independent interpretation: Emphysematous changes possible bibasilar opacities. HPI: 83 year old Female arrives for evaluation of hypoxia and altered mental status. Patient resides at a longterm facility. They were doing hourly checks on the patient when they found her to be tachypneic and hypoxic. She was also noted to be increasingly confused. The patient was diagnosed on October 08 with COVID. The patient's daughter is at the bedside and states that she has had very little oral intake over the past couple of days and when EMS arrived at the facility she had an O2 saturation in the 60s on room air. PAST MEDICAL HISTORY: See Below, PAST SURGICAL HISTORY: See Below, SOCIAL HISTORY: Patient resides at [facility], she quit smoking approximately 5 years ago HOME MEDICATIONS: See list ALLERGIES: See list VITALS: See Below PHYSICAL EXAMINATION: HEENT: Head - normocephalic and atraumatic. Pupils are equal, round, and reactive to light. Extraocular eye muscles are intact, and sclera are anicteric. Nose - moist nasal mucosa without discharge. Mouth - moist buccal mucosa. Oropharynx is nonerythematous and there is no tonsillar exudate or edema noted. Neck: Supple; no JVD Heart: Regular rate and rhythm. There is a normal S1 and S2 with no murmurs, clicks, or gallops appreciated. Lungs: Diffuse rhonchi in all lung miller Abdomen: Soft, completely nontender, nondistended, with good bowel sounds. There are no palpable pulsatile masses or hepatosplenomegaly. There is no guarding, rigidity, or rebound noted. Extremities: No evidence of cyanosis, clubbing, or edema. There are easily palpable peripheral pulses. Skin: warm and dry with poor turgor and no rashes. Neuro: Patient is rhythmically moaning but will follow commands. She has equal experimental assembler strength bilaterally. Emergency department course: Patient was evaluated in room A-4. Patient was placed on oxime mask. A complete history and physical was performed. Laboratory studies were drawn as above. Patient was bolused with IV normal saline solution and started on a saline drip. Patient was catheterized for a urine specimen and given a dose of IV Solu-Medrol. A portable chest x-ray was performed. O2 saturations remained stable. She was given a dose of IV antibiotics-piperacillin/tazobactam. Patient's mental status seemed to improve somewhat while she was in the emergency department. I discussed the case with the patient's daughter who is at the bedside. I discussed the case with the watch case polisher and the [facility] and they will evaluate her here in the emergency department for admission. Past Med/Surg History Problem List Acute alteration in mental status (Acute) Acute dehydration (Acute) Acute UTI (Acute) COVID (Acute) Hypoxia (Acute) Acute exacerbation of chronic obstructive pulmonary disease (Acute) Comfort measures only status Delirium Respiratory distress COVID-19 Anemia UTI (urinary tract infection) Hypokalemia Elevated troponin Presence of Watchman left atrial appendage closure device Nonsustained ventricular tachycardia Mitral regurgitation S/P CABG x 2 AICD (automatic cardioverter/defibrillator) present (Acute) Cardiomyopathy CAD (coronary artery disease) (Acute) Fall (Acute) Cervical disc disease Hypomagnesemia Fall (Acute) Weakness (Acute) Tachycardia (Acute) Peripheral neuropathy Ulcerative colitis Paroxysmal atrial fibrillation GERD (gastroesophageal reflux disease) Depression Chronic systolic CHF (congestive heart failure) Dementia (Acute) Chronic respiratory failure with hypoxia and hypercapnia (Acute) COPD (chronic obstructive pulmonary disease) Stented coronary artery Medical History Electrolyte imbalance Elevated troponin NSTEMI (non-ST elevated myocardial infarction) Pneumonia and influenza Influenza A Myocardial infarction UTI (urinary tract infection) Nephrolithiasis Hypokalemia Goiter, nodular Chronic back pain Arthritis Surgical History Hx of cholecystectomy AICD (automatic cardioverter/defibrillator) present Social History Smoking Status: Never smoker Tobacco Type: Cigarettes Cigarettes Per Day: 1 pack per day; Second Hand Exposure: No; Do You Dip or Chew Tobacco: No; Hx Alcohol Use: No Hx Substance Use: No Preferred Language: Ecuadorean Communication Ability: Impaired Window Shade Installer Required: No Beliefs That Will Affect Care: Islam marital status: Current Living Situation: Jail Current Living Situation Comment: Caregivers, see CM note in EHR current occupational status: retired How many Children do You have: 3 Feels Safe at Home: Yes Assistive Devices: None Allergies Allergies Allergy/AdvReac Type Severity Reaction Status Date / Time No Known Allergies Allergy Verified 07/10/21 10:55 Home Meds Home Medications Medication Instructions Recorded Confirmed Lactobac 51-Bifidobac 1 cap PO DAILY@1200 03/28/20 10/28/21 3-L.lactis-S.thermophilus 4 billion cell capsule (Daily Probiotic (10 Strains)) atorvastatin 40 mg tablet 40 mg PO DAILY@1500 03/28/20 10/28/21 furosemide 40 mg tablet 40 mg PO QAM 03/28/20 10/15/23 lamotrigine 100 mg tablet 200 mg PO AMHS 03/28/20 10/15/23 multivitamin with calcium and 1 tab PO DAILY 03/28/20 10/28/21 minerals-folic acid 200 mcg tablet (One-A-Day Proactive 65 Plus) naloxegol 25 mg tablet (Movantik) 25 mg PO QAM 03/28/20 10/28/21 potassium chloride 20 mEq 20 meq PO DAILY@1500 03/28/20 10/15/23 tablet,extended release(part/cryst) sennosides 8.6 mg-docusate sodium 1 tab PO HS 03/28/20 10/28/21 50 mg tablet (Stool Softener-Laxative) fluticasone furoate 100 1 inh inhalation DAILY 02/08/21 10/15/23 mcg-vilanterol 25 mcg/dose inhalation powder (Breo Ellipta) sucralfate 1 gram tablet 1 g PO TID 02/27/21 10/28/21 aspirin 81 mg tablet,delayed 81 mg PO QAM 05/28/21 10/30/21 release lorazepam 0.5 mg tablet 0.5 mg PO DAILY PRN Anxiety 05/28/21 10/15/23 omeprazole 20 mg capsule,delayed 20 mg PO BID 10/28/21 10/28/21 release biotin 10,000 mcg capsule 10,000 mcg PO DAILY 10/29/21 10/29/21 cyanocobalamin (vitamin B-12) 500 500 mcg PO DAILY 10/29/21 10/29/21 mcg tablet lubiprostone 24 mcg capsule 24 mcg PO BID 10/15/23 10/15/23 mirabegron 50 mg tablet,extended 50 mg PO DAILY 10/15/23 10/15/23 release 24 hr (Myrbetriq) oxycodone-acetaminophen 10 mg-325 1 tab PO TID 10/15/23 10/15/23 mg tablet quetiapine 25 mg tablet 12.5 mg PO DAILY 10/15/23 10/15/23 quetiapine 25 mg tablet 25 mg PO HS 10/15/23 10/15/23 Previous Rx's Medication Instructions Recorded guaifenesin 600 mg tablet, 600 mg PO Q12 #30 tabs 11/25/21 extended release 12 hr (Mucinex) lidocaine 5 % topical patch 1 patch transdermal HS #3 ea 11/25/21 melatonin 3 mg tablet 3 mg PO HS PRN sleep #30 tabs 11/25/21 metoprolol succinate 25 mg 12.5 mg (1/2 x 25 mg) PO QAM #30 11/25/21 tablet,extended release 24 hr tabs pantoprazole 40 mg tablet,delayed 40 mg PO BID #60 tabs 11/25/21 release paroxetine HCl 12.5 mg 50 mg (4 x 12.5 mg) PO DAILY #30 11/25/21 tablet,extended release 24 hr tabs prednisone 10 mg tablet 10 mg PO DAILY #3 tabs 11/25/21 prednisone 20 mg tablet 20 mg PO DAILY #2 tabs 11/25/21 Results & Data (ED) Vital Signs Vital Signs - 24 hr 10/15/23 02:50 10/15/23 02:50 10/15/23 02:53 Temperature 37.3 C Temperature Source Oral Pulse Rate 124 H 122 H Pulse Rate from SpO2 Sensor Pulse Rhythm Regular Pulse Strength Normal Respiratory Rate 28 H Respiratory Effort / Characteristics Spontaneous Moaning Short of Breath Spontaneous Moaning Short of Breath Respiratory Depth Shallow Respiratory Pattern Rapid/Shallow Rapid/Shallow Blood Pressure 120/76 Blood Pressure Mean 90 Blood Pressure Position Lying Pulse Oximetry 92 Oxygen Delivery Method Oxymask Oxymask Oxygen Flow Rate 10 10 Sepsis Recent Fever Within 48 Hours Yes Sepsis New/Unexplained Change in Mental Status No Sepsis Action Taken by Nursing No Action Required Oxygen Flow Rate - Titration Pulse Oximetry Post Tiitration 10/15/23 03:00 10/15/23 03:30 10/15/23 03:30 Temperature Temperature Source Pulse Rate 123 H Pulse Rate from SpO2 Sensor 122 H Pulse Rhythm Pulse Strength Respiratory Rate 22 Respiratory Effort / Characteristics Respiratory Depth Respiratory Pattern Blood Pressure 120/76 110/80 Blood Pressure Mean 89 99 Blood Pressure Position Pulse Oximetry 93 88 L Oxygen Delivery Method Oxymask Oxygen Flow Rate 8 Sepsis Recent Fever Within 48 Hours Sepsis New/Unexplained Change in Mental Status Sepsis Action Taken by Nursing Oxygen Flow Rate - Titration 10 Pulse Oximetry Post Tiitration 92 10/15/23 03:30 10/15/23 04:00 10/15/23 04:30 Temperature Temperature Source Pulse Rate 122 H 118 H 112 H Pulse Rate from SpO2 Sensor 122 H 118 H 112 H Pulse Rhythm Pulse Strength Respiratory Rate 23 23 20 Respiratory Effort / Characteristics Respiratory Depth Respiratory Pattern Blood Pressure 110/80 107/72 100/61 Blood Pressure Mean 99 86 75 Blood Pressure Position Pulse Oximetry 92 95 95 Oxygen Delivery Method Oxygen Flow Rate Sepsis Recent Fever Within 48 Hours Sepsis New/Unexplained Change in Mental Status Sepsis Action Taken by Nursing Oxygen Flow Rate - Titration Pulse Oximetry Post Tiitration Laboratory Data 10/15/23 02:32 10/15/23 02:32 Lab Results 10/15/23 10/15/23 Range/Units 02:32 03:15 WBC 6.23 (4.8-10.8) K/ul RBC 3.99 L (4.20-5.40) M/uL Hgb 12.4 (12.0-16.0) g/dl Hct 40.0 (37.0-47.0) % MCV 100.3 H (80.0-100.0) fL MCH 31.1 (25.0-34.0) pg MCHC 31.0 L (32.0-36.0) g/dL RDW Std Deviation 48.4 H (36.4-46.3) fL RDW Coeff of Eric 13.0 (11.5-14.5) % Plt Count 160 (130-400) K/uL MPV 10.3 (9.4-12.4) fL Immature Gran % (Auto) 0.2 % Neut % (Auto) 65.0 % Lymph % (Auto) 27.1 % [place] % (Auto) 6.9 % Eos % (Auto) 0.3 % Baso % (Auto) 0.5 % Neut # (Auto) 4.05 (1.40-6.50) K/uL Lymph # (Auto) 1.69 (1.20-3.40) K/uL [place] # (Auto) 0.43 (0.11-0.59) K/uL Eos # (Auto) 0.02 (0.00-0.50) K/uL Baso # (Auto) 0.03 (0.00-0.20) K/uL Immature Gran # (Auto) 0.01 (0.01-0.20) K/uL Sodium 144 (136-145) mmol/L Potassium 4.7 (3.5-5.1) mmol/L Chloride 102 (98-107) mmol/L Carbon Dioxide 34 H (21-32) mmol/L Anion Gap 8 (3-11) BUN 29 H (6-23) mg/dl Creatinine 0.98 (0.6-1.2) mg/dl Est Cr Clr Drug Dosing 30.7 ml/min Est GFR ( Amer) 61.0 ml/min Est GFR (Non-Af Amer) 52.6 ml/min BUN/Creatinine Ratio 29.6 H (10-20) Glucose 161 H (70-99(Fasting)) mg/dl Calcium 9.8 (8.6-10.3) mg/dl Phosphorus 5.0 H (2.5-4.9) mg/dl Magnesium 2.2 (1.7-2.4) mg/dl Total Bilirubin 0.4 (0.2-1.0) mg/dl AST 15 (13-39) U/L ALT 11 (7-52) U/L Alkaline Phosphatase 66 (34-104) U/L Troponin I High Sens 10.3 (0-14) pg/ml C-Reactive Protein 20.25 H (0-0.5) mg/dl Total Protein 6.7 (6.0-8.3) gm/dl Albumin 3.5 (3.4-5.0) gm/dl Globulin 3.2 (2.5-4.0) gm/dl Albumin/Globulin Ratio 1.1 (0.9-2) Urine Color Dark Yellow Urine Appearance Turbid A (Clear) Urine pH 5.0 (4.5-7.5) Ur Specific [place] 1.030 (1.000-1.030) Urine Protein 2+ H (Negative) Urine Glucose (UA) Negative (Negative) Urine Ketones Negative (Negative) Urine Blood Trace H (Negative) Urine Nitrite Positive A (Negative) Urine Bilirubin Negative (Negative) Urine Urobilinogen Negative (Negative) Ur Leukocyte Esterase 2+ H (Negative) Urine WBC (Auto) >50 H (0-5) /hpf Urine RBC (Auto) 0-2 (0-2) /hpf U Hyaline Cast (Auto) 0-2 (0-2) /lpf U Epithel Cells (Auto) 0-2 (0-2) /hpf Urine Bacteria (Auto) 3+ H (None Seen) Administered Medications Acetaminophen (Ofirmev) 1,000 mg in 100 mls @ 400 mls/hr IV Q8H PRN PRN Reason: Fever Stop: 10/18/23 10:07 Last Infusion: 10/15/23 11:06 Dose: Infused Documented By: Admin: 10/15/23 10:35 Dose: 400 mls/hr Documented By: ZHAO Lorazepam (Lorazepam 2 Mg/1 Ml Vial) 0.5 mg IV Q4H PRN PRN Reason: Anxiety/Agitation Stop: 11/14/23 10:01 Last Admin: 10/15/23 13:35 Dose: 0.5 mg Documented By: JENNIFER Morphine Sulfate (Morphine Sulfate 2 Mg/Ml Carp) 1 mg IV Q2H PRN PRN Reason: Pain or Respiratory Distress Stop: 10/29/23 10:01 Last Admin: 10/15/23 16:22 Dose: 1 mg Documented By: Admin: 10/15/23 13:36 Dose: 1 mg Documented By: Admin: 10/15/23 10:35 Dose: 1 mg Documented By: ZHAO Discontinued Medications Albuterol (Albuterol Hfa 8 Gm Inhaler) 1 puffs INH QIDR [facility] Stop: 11/14/23 09:33 Last Admin: 10/15/23 10:11 Dose: 1 puffs Documented By: ZINA Benzonatate (Benzonatate 100 Mg Capsule) 100 mg PO TID [facility] Stop: 11/14/23 09:33 Last Admin: 10/15/23 11:04 Dose: Not Given Documented By: JENNIFER Fluticasone/Vilanterol (Fluticasone/Vilanterol 100/25mcg 14 Puffs/Inhaler) 1 puffs INH DAILY [facility] Stop: 11/14/23 09:33 Last Admin: 10/15/23 11:04 Dose: Not Given Documented By: JENNIFER Guaifenesin (Guaifenesin 600 Mg Tabcr) 600 mg PO Q12 [facility] Stop: 11/14/23 09:33 Last Admin: 10/15/23 11:04 Dose: Not Given Documented By: JENNIFER Piperacillin Sod/Tazobactam Sod (Zosyn) 4.5 gm in 100 mls @ 200 mls/hr IV NOW ONE Stop: 10/15/23 04:47 Last Infusion: 10/15/23 06:44 Dose: Infused Documented By: Admin: 10/15/23 05:31 Dose: 200 mls/hr Documented By: NISHANT Sodium Chloride (Nss) 500 mls @ 999 mls/hr IV .Q31M ONE Stop: 10/15/23 04:50 Last Infusion: 10/15/23 06:43 Dose: Infused Documented By: Admin: 10/15/23 05:31 Dose: 999 mls/hr Documented By: NISHANT Sodium Chloride (Nss) 500 mls @ 125 mls/hr IV .Q4H [facility] Stop: 11/14/23 04:29 Last Admin: 10/15/23 11:04 Dose: Not Given Documented By: Infusion: 10/15/23 10:27 Dose: Infused Documented By: Admin: 10/15/23 05:32 Dose: 125 mls/hr Documented By: NISHANT Ipratropium [place] (Ipratropium [place] Hfa Inhaler) 1 puffs INH QIDR [facility] Stop: 11/14/23 09:33 Last Admin: 10/15/23 10:12 Dose: 1 puffs Documented By: ZINA Lamotrigine (Lamotrigine 100 Mg Tab) 200 mg PO [facility]; Protocol Stop: 11/14/23 09:33 Last Admin: 10/15/23 11:04 Dose: Not Given Documented By: JENNIFER Methylprednisolone (Methylprednisolone 125 Mg/2 Ml Vial) 125 mg IV NOW STA Stop: 10/15/23 04:22 Last Admin: 10/15/23 05:31 Dose: 125 mg Documented By: NISHANT Metoprolol Succinate (Metoprolol Succ 25mg Ext Rel Tab) 12.5 mg PO QAM [facility] Stop: 11/14/23 09:33 Last Admin: 10/15/23 11:04 Dose: Not Given Documented By: JENNIFER Oxycodone HCl (Oxycodone Hcl Ir 5 Mg Tab (Immediate Release)) 10 mg PO TID [facility] Stop: 10/29/23 09:33 Last Admin: 10/15/23 11:05 Dose: Not Given Documented By: JENNIFER Pantoprazole Sodium (Pantoprazole 40 Mg Tab) 40 mg PO BID [facility] Stop: 11/14/23 09:33 Last Admin: 10/15/23 11:05 Dose: Not Given Documented By: JENNIFER Paroxetine HCl (Paroxetine Hcl Controlled Rel 12.5 Mg Tabcr) 50 mg PO DAILY [facility] Stop: 11/14/23 09:33 Last Admin: 10/15/23 11:05 Dose: Not Given Documented By: JENNIFER Imaging Data Radiologist's Impression: Chest X-Ray 10/15/23 03:01 SINGLE VIEW CHEST CLINICAL HISTORY: Dyspnea FINDINGS: An AP, portable, upright chest radiograph is compared to study dated 11/18/2021 and correlated with chest CT dated 10/27/2021. The patient is status post midline sternotomy. A 2-lead cardiac AICD is unchanged in position and partially obscures the left mid chest. An atrial septal device is in place. The heart is enlarged noting atherosclerotic calcification of the thoracic aorta. The pulmonary vasculature is noncongested. Emphysema and chronic interstitial thickening is similar to previous. Airspace opacities are seen at both lung bases. No large pleural effusion or pneumothorax is identified. The skeletal structures are osteopenic. The bony thorax is grossly intact. IMPRESSION: 1. Cardiomegaly and AICD without radiographic evidence of congestive failure. 2. Emphysema. 3. Bibasilar opacities could represent scarring/atelectasis versus an infectious/inflammatory pneumonitis. Clinical correlation will be required and radiographic follow-up to resolution is recommended. ACT 112: Negative or not required by law. Electronically signed by: Doe Thibodeaux M.D. 10/15/2023 7:33 AM Discharge Plan Visit Data Chief Complaint: Shortness of Breath/Dyspnea Stated Complaint: Covid+, SOB, Confusion ED Provider: No Vasquez Discharge Problem: Acute exacerbation of chronic obstructive pulmonary disease, Hypoxia, COVID, Acute UTI, Acute dehydration, Acute alteration in mental status Patient Disposition: Admitted As Inpatient Discharge Instructions Interventions: ED Discharge Assessment Last Done: 10/15/23 07:50
[2023-10-15 03:32] LABS: Albumin Globulin Ratio 1.1 (0.9-2); Albumin Level 3.5 gm/dl (3.4-5.0); BUN Creatinine Ratio 29.6 (10-20); Bilirubin,Total 0.4 mg/dl (0.2-1.0); Calcium 9.8 mg/dl (8.6-10.3); Creatinine Clr Calc Pharmacy 30.7 ml/min; Est GFR (Non-African American) 52.6 ml/min; Globulin 3.2 gm/dl (2.5-4.0); Potassium 4.7 mmol/L (3.5-5.1); Total Protein 6.7 gm/dl (6.0-8.3)
[2023-10-15 03:38] LABS: Basophils # (auto) 0.03 K/uL (0.00-0.20); Basophils % (auto) 0.5 %; Eosinophils # (auto) 0.02 K/uL (0.00-0.50); Eosinophils % (auto) 0.3 %; Immature Granulocytes # (auto) 0.01 K/uL (0.01-0.20); Immature Granulocytes % (auto) 0.2 %; Lymphocytes # (auto) 1.69 K/uL (1.20-3.40); Lymphocytes % (auto) 27.1 %; Monocytes # (auto) 0.43 K/uL (0.11-0.59); Monocytes % (auto) 6.9 %; Neutrophils # (auto) 4.05 K/uL (1.40-6.50); Troponin I High Sensitivity 10.3 pg/ml (0-14)
[2023-10-15 03:52] LABS: Appearance Urine Turbid (Clear); Bacteria Urine Automated 3+ (None Seen); Bilirubin Urine Negative (Negative); Blood Urine Trace (Negative); Color Urine Dark Yellow; Epithelial Cell Urine Auto 0-2 /hpf (0-2); Glucose Urine UA Negative (Negative); Ketones Urine Negative (Negative); Leukocyte Esterase Urine 2+ (Negative); Nitrite Urine Positive (Negative); Protein Urine 2+ (Negative); RBC Urine Automated 0-2 /hpf (0-2); Urobilinogen Urine Negative (Negative); WBC Urine Automated >50 /hpf (0-5)
[2023-10-15 04:03] LABS: Cast Urine Automated 0-2 /lpf (0-2)
--- NOTE | 2023-10-15 04:40 | History & Physical Report ---
Date of Service October 15, 2023 Assessment & Plan (1) COVID-19: Plan: Patient with Covid-19 diagnosed on 10/09/23. Has had progressive respiratory decline. Acute on chronic hypoxic respiratory failure present on arrival. Likely secondary to Covid-19 +COPD. Possibly underlying PNA as well. Saturations improved - patient presently on 10L Oxymask saturating 92% -Admit to PCU -Maintain Covid isolation -Check Procalcitonin, BNP, D-dimer and CRP -Solumedrol for Covid and presumed COPD exacerbation - 40mg IV BID -Flutter -Mucinex BID -Tylenol PRN -Albuterol PRN -Tessalon TID -Lovenox for DVT Prophylaxis (2) COPD (chronic obstructive pulmonary disease): Plan: Suspect COPD exacerbation in setting of Covid-19 infection -Solumedrol 40mg IV BID -Combivent BID -Albuterol HFA q2 hr PRN -Continue Breo -Mucinex BID -Flutter valve -Continue supplemental O2 as needed (3) UTI (urinary tract infection): Plan: UA suggestive of infection. Likely contributing to patient's delirium and confusion -Follow cultures -Zosyn (4) Respiratory distress: Plan: Acute on chronic hypoxic respiratory failure likely multifactorial - Covid-19, COPD, possible PNA -Checking BNP, Procalcitonin and Ddimer -Supplemental O2 as needed -Secretion management (5) Delirium: Plan: Multifactorial - patient with underlying dementia. Daughter reports that she has been less responsive and "almost catatonic" for the last several days. Suspect hypoactive delirium secondary to underlying infection and hypoxia -Frequent orientation -Treatment of underlying medical issues as above Plan Bipolar disorder -Continue home Lamictal -Continue home Seroquel - hold for sedation -Continue Paxil CAD -Continue Metoprolol -No ASA or statin on NH medication list GERD -Continue Protonix 40mg po BID F/E/N - Patient received IVF x 1L in ER, electrolytes WNL - checking PO4 and Mg x 1, Regular diet as tolerated with aspiration precautions Ppx - Lovenox Code - Form on chart - patient is DNR/DNI/LT - after discussion with daughter will continue IVF and antibiotics for now. However, if patient's clinical condition should deteriorate daughter would be more open to a comfort only approach Dispo - Admit to PCU History of Present Illness Chief Complaint: respiratory distress Primary Care Provider: Bony Guerrero Damaso Keita is an 83yo female with history of COPD,chronic hypoxic respiratory failure on PRN O2, CAD s/p CABG, AICD in place presenting with shortness of breath. Patient resides at [facility] in [place]. She has baseline dementia. Diagnosed with Covid-19 on 10/09/23. Daughter is at bedside and provides history as patient is nonverbal at this time. She reports that patient has been having progressive decline over the last couple of days - coughing, "gurgling" sound in her chest and worsening shortness of breath and hypoxia requiring continuous supplemental O2. Daughter has been staying in the NH room over the last couple of nights. Patient has had fever - last yesterday. She has not been eating, drinking or taking her medications for the last two days. Has not been able to swallow. She has had a moist cough with a lot of upper airway secretions. No nausea/vomiting/diarrhea. She was given some IVF at [facility]. In the ER patient afebrile, tachycardic, tachypneic, saturating 92% on 10L/min Oxymask ER Course: Zosyn Solumedrol NSS Allergies Allergy/AdvReac Type Severity Reaction Status Date / Time No Known Allergies Allergy Verified 07/10/21 10:55 Home Medications Medication Instructions Recorded Confirmed Type Lactobac 51-Bifidobac 1 cap PO DAILY@1200 03/28/20 10/28/21 History 3-L.lactis-S.thermophilus 4 billion cell capsule (Daily Probiotic (10 Strains)) atorvastatin 40 mg tablet 40 mg PO DAILY@1500 03/28/20 10/28/21 History furosemide 40 mg tablet 40 mg PO QAM 03/28/20 10/15/23 History lamotrigine 100 mg tablet 200 mg PO AMHS 03/28/20 10/15/23 History multivitamin with calcium and 1 tab PO DAILY 03/28/20 10/28/21 History minerals-folic acid 200 mcg tablet (One-A-Day Proactive 65 Plus) naloxegol 25 mg tablet (Movantik) 25 mg PO QAM 03/28/20 10/28/21 History potassium chloride 20 mEq 20 meq PO DAILY@1500 03/28/20 10/15/23 History tablet,extended release(part/cryst) sennosides 8.6 mg-docusate sodium 1 tab PO HS 03/28/20 10/28/21 History 50 mg tablet (Stool Softener-Laxative) fluticasone furoate 100 1 inh inhalation DAILY 02/08/21 10/15/23 History mcg-vilanterol 25 mcg/dose inhalation powder (Breo Ellipta) sucralfate 1 gram tablet 1 g PO TID 02/27/21 10/28/21 History aspirin 81 mg tablet,delayed 81 mg PO QAM 05/28/21 10/30/21 History release lorazepam 0.5 mg tablet 0.5 mg PO DAILY PRN Anxiety 05/28/21 10/15/23 History omeprazole 20 mg capsule,delayed 20 mg PO BID 10/28/21 10/28/21 History release biotin 10,000 mcg capsule 10,000 mcg PO DAILY 10/29/21 10/29/21 History cyanocobalamin (vitamin B-12) 500 500 mcg PO DAILY 10/29/21 10/29/21 History mcg tablet guaifenesin 600 mg tablet, 600 mg PO Q12 #30 tabs 11/25/21 10/15/23 Rx extended release 12 hr (Mucinex) lidocaine 5 % topical patch 1 patch transdermal HS #3 ea 11/25/21 Rx melatonin 3 mg tablet 3 mg PO HS PRN sleep #30 tabs 11/25/21 Rx metoprolol succinate 25 mg 12.5 mg (1/2 x 25 mg) PO QAM #30 11/25/21 10/15/23 Rx tablet,extended release 24 hr tabs pantoprazole 40 mg tablet,delayed 40 mg PO BID #60 tabs 11/25/21 10/15/23 Rx release paroxetine HCl 12.5 mg 50 mg (4 x 12.5 mg) PO DAILY #30 11/25/21 10/15/23 Rx tablet,extended release 24 hr tabs prednisone 10 mg tablet 10 mg PO DAILY #3 tabs 11/25/21 Rx prednisone 20 mg tablet 20 mg PO DAILY #2 tabs 11/25/21 Rx lubiprostone 24 mcg capsule 24 mcg PO BID 10/15/23 10/15/23 History mirabegron 50 mg tablet,extended 50 mg PO DAILY 10/15/23 10/15/23 History release 24 hr (Myrbetriq) oxycodone-acetaminophen 10 mg-325 1 tab PO TID 10/15/23 10/15/23 History mg tablet quetiapine 25 mg tablet 12.5 mg PO DAILY 10/15/23 10/15/23 History quetiapine 25 mg tablet 25 mg PO HS 10/15/23 10/15/23 History Past Med/Surg History Problem List Delirium Respiratory distress COVID-19 Anemia UTI (urinary tract infection) Hypokalemia Elevated troponin Presence of Watchman left atrial appendage closure device Nonsustained ventricular tachycardia Mitral regurgitation S/P CABG x 2 AICD (automatic cardioverter/defibrillator) present (Acute) Cardiomyopathy CAD (coronary artery disease) (Acute) Fall (Acute) Cervical disc disease Hypomagnesemia Fall (Acute) Weakness (Acute) Tachycardia (Acute) Peripheral neuropathy Ulcerative colitis Paroxysmal atrial fibrillation GERD (gastroesophageal reflux disease) Depression Chronic systolic CHF (congestive heart failure) Dementia (Acute) Chronic respiratory failure with hypoxia and hypercapnia (Acute) COPD (chronic obstructive pulmonary disease) Stented coronary artery Medical History Electrolyte imbalance Elevated troponin NSTEMI (non-ST elevated myocardial infarction) Pneumonia and influenza Influenza A Myocardial infarction UTI (urinary tract infection) Nephrolithiasis Hypokalemia Goiter, nodular Chronic back pain Arthritis Surgical History Hx of cholecystectomy AICD (automatic cardioverter/defibrillator) present Social History Smoking Status: Former smoker Tobacco Type: Cigarettes Cigarettes Per Day: 1 pack per day; Second Hand Exposure: No; Do You Dip or Chew Tobacco: No; Hx Alcohol Use: No Hx Substance Use: No Preferred Language: Uzbek Communication Ability: Effective Physician Practice Market Manager Required: No Beliefs That Will Affect Care: None marital status: Current Living Situation: Family Current Living Situation Comment: Caregivers, see CM note in EHR current occupational status: retired How many Children do You have: 3 Feels Safe at Home: Yes Assistive Devices: Walker Review of Systems Review of Systems: All systems reviewed & are unremarkable except as noted in HPI & below Physical Exam Physical Exam: General: patient somnolent, does not respond to commands or answer questions Skin: eshar present on left knee from recent fall HEENT: Fading bruise on left forehead, anicteric sclera, conjunctiva without injection, external ear normal to inspection and nontender, nares patent, dry mucus membranes, no oropharyngeal lesions, neck supple, trachea midline, no LAD, no thyromegaly, no JVD Heart: +S1/S2, regular,tachycardic, no m/r/g Lungs: coarse breath sounds anteriorly with end-expiratory wheezing, no rales Abd: +BS, soft, NT/ND, no masses/organomegaly/ascites Ext: warm, 2+ pulses in UE/LE bilaterally, no clubbing/cyanosis or edema Neuro: somnolent, patient not following commands or answering questions Results & Data Results & Data Vital Signs (Past 12 Hours) Vital Signs Temp Pulse Resp BP Pulse Ox O2 Del Method O2 Flow Rate 10/15/23 02:53 122 H 10/15/23 02:50 37.3 C 124 H 28 H 120/76 92 Oxymask 10 10/15/23 02:50 Oxymask 10 Laboratory Results Laboratory Results WBC 6.23 K/ul (4.8-10.8) 10/15/23 02:32 RBC 3.99 M/uL (4.20-5.40) L 10/15/23 02:32 Hgb 12.4 g/dl (12.0-16.0) 10/15/23 02:32 Hct 40.0 % (37.0-47.0) 10/15/23 02:32 MCV 100.3 fL (80.0-100.0) H 10/15/23 02:32 MCH 31.1 pg (25.0-34.0) 10/15/23 02:32 MCHC 31.0 g/dL (32.0-36.0) L 10/15/23 02:32 RDW Std Deviation 48.4 fL (36.4-46.3) H 10/15/23 02:32 RDW Coeff of Eric 13.0 % (11.5-14.5) 10/15/23 02:32 Plt Count 160 K/uL (130-400) 10/15/23 02:32 MPV 10.3 fL (9.4-12.4) 10/15/23 02:32 Immature Gran % (Auto) 0.2 % 10/15/23 02:32 Neut % (Auto) 65.0 % 10/15/23 02:32 Lymph % (Auto) 27.1 % 10/15/23 02:32 Alcorn % (Auto) 6.9 % 10/15/23 02:32 Eos % (Auto) 0.3 % 10/15/23 02:32 Baso % (Auto) 0.5 % 10/15/23 02:32 Neut # (Auto) 4.05 K/uL (1.40-6.50) 10/15/23 02:32 Lymph # (Auto) 1.69 K/uL (1.20-3.40) 10/15/23 02:32 Alcorn # (Auto) 0.43 K/uL (0.11-0.59) 10/15/23 02:32 Eos # (Auto) 0.02 K/uL (0.00-0.50) 10/15/23 02:32 Baso # (Auto) 0.03 K/uL (0.00-0.20) 10/15/23 02:32 Immature Gran # (Auto) 0.01 K/uL (0.01-0.20) 10/15/23 02:32 Sodium 144 mmol/L (136-145) 10/15/23 02:32 Potassium 4.7 mmol/L (3.5-5.1) 10/15/23 02:32 Chloride 102 mmol/L (98-107) 10/15/23 02:32 Carbon Dioxide 34 mmol/L (21-32) H 10/15/23 02:32 Anion Gap 8 (3-11) 10/15/23 02:32 BUN 29 mg/dl (6-23) H 10/15/23 02:32 Creatinine 0.98 mg/dl (0.6-1.2) 10/15/23 02:32 Est Cr Clr Drug Dosing 30.7 ml/min 10/15/23 02:32 Est GFR ( Amer) 61.0 ml/min 10/15/23 02:32 Est GFR (Non-Af Amer) 52.6 ml/min 10/15/23 02:32 BUN/Creatinine Ratio 29.6 (10-20) H 10/15/23 02:32 Glucose 161 mg/dl (70-99(Fasting)) H 10/15/23 02:32 Calcium 9.8 mg/dl (8.6-10.3) 10/15/23 02:32 Total Bilirubin 0.4 mg/dl (0.2-1.0) 10/15/23 02:32 AST 15 U/L (13-39) 10/15/23 02:32 ALT 11 U/L (7-52) 10/15/23 02:32 Alkaline Phosphatase 66 U/L (34-104) 10/15/23 02:32 Troponin I High Sens 10.3 pg/ml (0-14) 10/15/23 02:32 Total Protein 6.7 gm/dl (6.0-8.3) 10/15/23 02:32 Albumin 3.5 gm/dl (3.4-5.0) 10/15/23 02:32 Globulin 3.2 gm/dl (2.5-4.0) 10/15/23 02:32 Albumin/Globulin Ratio 1.1 (0.9-2) 10/15/23 02:32 Urine Color Dark Yellow 10/15/23 03:15 Urine Appearance Turbid (Clear) A 10/15/23 03:15 Urine pH 5.0 (4.5-7.5) 10/15/23 03:15 Ur Specific Mcintyre 1.030 (1.000-1.030) 10/15/23 03:15 Urine Protein 2+ (Negative) H 10/15/23 03:15 Urine Glucose (UA) Negative (Negative) 10/15/23 03:15 Urine Ketones Negative (Negative) 10/15/23 03:15 Urine Blood Trace (Negative) H 10/15/23 03:15 Urine Nitrite Positive (Negative) A 10/15/23 03:15 Urine Bilirubin Negative (Negative) 10/15/23 03:15 Urine Urobilinogen Negative (Negative) 10/15/23 03:15 Ur Leukocyte Esterase 2+ (Negative) H 10/15/23 03:15 Urine WBC (Auto) >50 /hpf (0-5) H 10/15/23 03:15 Urine RBC (Auto) 0-2 /hpf (0-2) 10/15/23 03:15 U Hyaline Cast (Auto) 0-2 /lpf (0-2) 10/15/23 03:15 U Epithel Cells (Auto) 0-2 /hpf (0-2) 10/15/23 03:15 Urine Bacteria (Auto) 3+ (None Seen) H 10/15/23 03:15 Diagnostic Findings CXR with sternotomy wires, AICD in place Bilateral airspace opacities present Code Status & VTE Plan VTE Prophylaxis Plan VTE Prophylaxis will be ordered: Yes PG Care Time/CCT Total # of Minutes Spent Total Time Spent with Patient: Total time spent is greater than 50% in coordination of care (as documented) at patient's floor/unit and/or counseling patient: Coding Level of Care Code 67229 INT INP/OBS CARE 3/75MIN Diagnoses COVID-19 U07.1 COPD (chronic obstructive pulmonary disease) J44.9 UTI (urinary tract infection) N39.0 Respiratory distress R06.03 Delirium R41.0
[2023-10-15] MEDS: methylPREDNISolone 125 MG/2 ML VIAL IV STA (05:31)
[2023-10-15] MEDS: PIPERACILLIN/TAZOBACTAM 4.5 GM/100 ML BAG IV ONE (05:31)
[2023-10-15] MEDS: SODIUM CHLORIDE 0.9% 500 ML IV ONE (05:31)
[2023-10-15] MEDS: SODIUM CHLORIDE 0.9% 500 ML IV SCH (05:32)
--- NOTE | 2023-10-15 07:34 | XRay Report ---
SINGLE VIEW CHEST CLINICAL HISTORY: Dyspnea FINDINGS: An AP, portable, upright chest radiograph is compared to study dated 11/18/2021 and correla dorys with chest CT dated 10/27/2021. The patient is status post midline sternotomy. A 2-lead cardiac AI CD is unchanged in position and partially obscures the left mid chest. An atrial septal device is in place. The heart is enlarged noting atherosclerotic calcification of the thoracic aorta. The pulmonar y vasculature is noncongested. Emphysema and chronic interstitial thickening is similar to previous. Airspace opacities are seen at both lung bases. No large pleural effusion or pneumothorax is identifi ed. The skeletal structures are osteopenic. The bony thorax is grossly intact. IMPRESSION: 1. Cardiomegaly and AICD without radiographic evidence of congestive failure. 2. Emphysema. 3. Bibasilar opacities could represent scarring/atelectasis versus an infectious/inflammatory pneumon itis. Clinical correlation will be required and radiographic follow-up to resolution is recommended. ACT 112: Negative or not required by law. Electronically signed by: Doe Thibodeaux M.D. 10/15/2023 7:33 AM
[2023-10-15] MEDS ORDERED: IPRATROPIUM BROMIDE/ALBUTEROL respimat INH INH SCH (09:34)
[2023-10-15] MEDS ORDERED: ACETAMINOPHEN 325 MG TAB PO PRN (09:34)
[2023-10-15] MEDS ORDERED: ONDANSETRON INJ 2 MG/ML 2 ML VIAL IV PRN ×2 (09:34→10:02)
[2023-10-15] MEDS ORDERED: ALBUTEROL HFA 8 GM INHALER INH PRN (09:34)
[2023-10-15 10:01] LABS: C Reactive Protein 20.25 mg/dl (0-0.5); Magnesium 2.2 mg/dl (1.7-2.4)
[2023-10-15] MEDS: ALBUTEROL HFA 8 GM INHALER INH SCH (10:11)
[2023-10-15] MEDS: IPRATROPIUM BROMIDE HFA INHALER INH SCH (10:12)
[2023-10-15 10:14] VITALS: RESP 20; O2SAT 93
[2023-10-15 10:24] VITALS: BP 127/72; TEMP 100.2
[2023-10-15] MEDS: MoRPHine SULFATE 2 MG/ML CARP IV PRN (10:35)
[2023-10-15] MEDS: ACETAMINOPHEN 1,000 MG/100 ML VIAL IV PRN (10:35)
[2023-10-15] MEDS ORDERED: PIPERACILLIN/TAZOBACTAM 4.5 GM/100 ML BAG IV SCH (11:00)
[2023-10-15] MEDS ORDERED: ENOXAPARIN INJ 40 MG/0.4 ML SYR SQ SCH (11:00)
[2023-10-15] MEDS: BENZONATATE 100 MG CAPSULE PO SCH (11:04)
[2023-10-15] MEDS: lamoTRIgine 100 MG TAB PO SCH (11:04)
[2023-10-15] MEDS: METOPROLOL SUCC 25MG EXT REL TAB PO SCH (11:04)
[2023-10-15] MEDS: FLUTICASONE/VILANTEROL 100/25MCG 14 PUFFS/INHALER INH SCH (11:04)
[2023-10-15] MEDS: guaiFENesin 600 MG TABCR PO SCH (11:04)
[2023-10-15] MEDS: PARoxetine HCl CONTROLLED REL 12.5 MG TABCR PO SCH (11:05)
[2023-10-15] MEDS: oxyCODONE HCL IR 5 MG TAB (IMMEDIATE RELEASE) PO SCH (11:05)
[2023-10-15] MEDS: PANTOprazole 40 MG TAB PO SCH (11:05)
[2023-10-15 11:42] VITALS: PULSE 108
--- NOTE | 2023-10-15 13:01 | Electrocardiogram Report ---
Test Reason : Blood Pressure : */* mmHG Vent. Rate : 124 BPM Atrial Rate : 124 BPM P-R Int : 130 ms QRS Dur : 94 ms QT Int : 308 ms P-R-T Axes : 12 72 -56 degrees QTcB Int : 442 ms Poor data quality, interpretation may be adversely affected Sinus tachycardia Abnormal ECG When compared with ECG of 27-Oct-2021 14:31, Premature ventricular complexes are no longer Present Premature supraventricular complexes are no longer Present Non-specific change in ST segment in Inferior leads Nonspecific T wave abnormality no longer evident in Anterior leads Confirmed by Malick Barfield ([id number]) on 10/15/2023 1:01:14 PM Referred By: REFERRED SELF Confirmed By: Malick Barfield
[2023-10-15] MEDS: LORazepam 2 MG/1 ML VIAL IV PRN (13:35)
--- NOTE | 2023-10-15 17:04 | Hospitalist Progress Note ---
Date of Service October 15, 2023 Assessment & Plan (1) Comfort measures only status: Plan: patient presented from nursing facility after being diagnosed with COVID-19 on 10/09/23, with worsening respiratory decline. Also concerns for an underlying pneumonia, COPD exacerbation and a urinary tract infection. Admitted requiring 10 to 15L on Oxymask. family states that patient would not want interventions further escalated. And decision was made for comfort measures only status. Morphine for air hunger/pain Ativan prn for agitation Robinul prn for secretions Tylenol prn for fever as patient was tremulous and diaphoretic earlier and would not consider that to be a comfortable state maintain covid isolation (2) COVID-19: Plan: Patient with Covid-19 diagnosed on 10/09/23. Has had progressive respiratory decline. Acute on chronic hypoxic respiratory failure present on arrival. Likely secondary to Covid-19 +COPD. Possibly underlying PNA as well. Saturations improved - patient presently on 10L Oxymask saturating 92% care withdrawn due to comfort measures only status (3) COPD (chronic obstructive pulmonary disease): Plan: Suspect COPD exacerbation in setting of Covid-19 infection, however no further management due to LIGHTING SPECIALIST (4) UTI (urinary tract infection): Plan: no further abx under LIGHTING SPECIALIST Plan No home medications will be continued. Lamictal is for mood stablization and not seizures. Dispo: continued inpatient stay, LIGHTING SPECIALIST daughter updated at bedside Admission and Anticipated Discharge Date Admission Date: October 15, 2023 Subjective called to bedside by nursing staff as patient's respiratory status was getting worse. Patient was minimally responsive, daughter Kristine at bedside very focused on not wanting her mom to suffer. Discussed the use of comfort measures only status and she was agreeable. No further testing to be done and we will stop all current interventions Review of Systems Review of Systems: Unobtainable due to reduced consciousness Physical Exam Physical Exam: patient revisited multiple times throughout the day Breathing unlabored, does not appear to be in pain or distress. oximask or nasal cannula in place Results & Data Results & Data Vital Signs (Past 12 Hours) Vital Signs Temp Pulse Pulse Resp BP BP Pulse Ox 10/15/23 11:41 108 H 10/15/23 10:12 104 H 20 93 10/15/23 09:34 10/15/23 09:34 37.9 C H 116 H 13 127/72 90 10/15/23 07:50 104 H 24 119/72 95 10/15/23 07:39 37 C 10/15/23 07:13 104 H 24 96 10/15/23 06:30 107 H 22 99/63 L 94 10/15/23 06:00 111 H 18 118/71 93 10/15/23 05:30 118 H 22 107/87 92 10/15/23 05:00 110 H 20 104/74 94 O2 Del Method O2 Flow Rate 10/15/23 11:41 10/15/23 10:12 Oxymask 15 10/15/23 09:34 Oxymask 15 10/15/23 09:34 Oxymask 15 10/15/23 07:50 Oxymask 10 10/15/23 07:39 10/15/23 07:13 Oxymask 10 10/15/23 06:30 10/15/23 06:00 10/15/23 05:30 10/15/23 05:00 PG Care Time/CCT Total # of Minutes Spent Total Time Spent with Patient: Total time spent is greater than 50% in coordination of care (as documented) at patient's floor/unit and/or counseling patient: Coding Level of Care Code None Diagnoses Comfort measures only status Z51.5 COVID-19 U07.1 COPD (chronic obstructive pulmonary disease) J44.9 UTI (urinary tract infection) N39.0
[2023-10-15] MEDS ORDERED: methylPREDNISolone 40 MG in SYRINGE 0 ML IV SCH (18:00)
[2023-10-16] MEDS ORDERED: MoRPHine SULFATE 2 MG/ML CARP IV PRN (08:31)
[2023-10-16] MEDS: MoRPHine SULFATE 2 MG/ML CARP IV SCH (09:39)
[2023-10-16] MEDS: GLYCOPYRROLATE 0.2 MG/ML VIAL IV PRN (10:08)
[2023-10-16] MEDS ORDERED: STAT IV Infusion **Titration per Protocol STA (10:27)
[2023-10-16] MEDS: MoRPHine SULF/NSS 100 MG/100 ML BAG IV SCH (11:07)
--- NOTE | 2023-10-16 13:28 | Communication Note ---
Date of Service: October 16, 2023 Patient status changed to comfort measures only. Request was made to deactivated her ICD therapies. I deactivated both the ICD therapies in the pacing function of her device. Not currently pacing. No defibrillation or cardioversion will be performed by the device. No pacing will be performed by the device.
--- NOTE | 2023-10-16 14:37 | Hospitalist Progress Note ---
Date of Service October 16, 2023 Assessment & Plan (1) Comfort measures only status: Plan: patient presented from nursing facility after being diagnosed with COVID-19 on 10/09/23, with worsening respiratory decline. Also concerns for an underlying pneumonia, COPD exacerbation and a urinary tract infection. Admitted requiring 10 to 15L on Oxymask. family states that patient would not want interventions further escalated. And decision was made for comfort measures only status. Transitioned to morphine drip Ativan prn for agitation Robinul prn for secretions Tylenol prn for fever as patient was tremulous and diaphoretic earlier and would not consider that to be a comfortable state ICD deactivated by Dr. Perez 10/15 maintain covid isolation (2) COVID-19: Plan: Patient with Covid-19 diagnosed on 10/09/23. Has had progressive respiratory decline. Acute on chronic hypoxic respiratory failure present on arrival. Likely secondary to Covid-19 +COPD. Possibly underlying PNA as well. Saturations improved - patient presently on 10L Oxymask saturating 92% care withdrawn due to comfort measures only status (3) COPD (chronic obstructive pulmonary disease): Plan: Suspect COPD exacerbation in setting of Covid-19 infection, however no further management due to INSULATION MANAGER (4) UTI (urinary tract infection): Plan: no further abx under INSULATION MANAGER Plan No home medications will be continued. Lamictal is for mood stablization and not seizures. Dispo: continued inpatient stay, INSULATION MANAGER daughters updated at bedside Admission and Anticipated Discharge Date Admission Date: October 15, 2023 Subjective Patient more alert today and now opening her eyes and said some words to family this morning Review of Systems Review of Systems: Unobtainable due to reduced consciousness Physical Exam Physical Exam: Breathing unlabored, does not appear to be in pain or distress. nasal canula in place bradypneic, with gurgles and crackles throughout RRR Results & Data Results & Data Vital Signs (Past 12 Hours) Vital Signs O2 Del Method O2 Flow Rate 10/16/23 09:34 Nasal Cannula 2 PG Care Time/CCT Total # of Minutes Spent Total Time Spent with Patient: Total time spent is greater than 50% in coordination of care (as documented) at patient's floor/unit and/or counseling patient: Coding Level of Care Code 87998 SUB INP/OBS CARE 1/25MIN Diagnoses Comfort measures only status Z51.5 COVID-19 U07.1 COPD (chronic obstructive pulmonary disease) J44.9 UTI (urinary tract infection) N39.0
[2023-10-17] MEDS: LORazepam 2 MG/1 ML VIAL IV STA (05:47)
[2023-10-17] MEDS: LORazepam 2 MG/1 ML VIAL IV PRN (12:10)
--- NOTE | 2023-10-17 17:10 | Hospitalist Progress Note ---
Date of Service October 17, 2023 Assessment & Plan (1) Comfort measures only status: Plan: patient presented from nursing facility after being diagnosed with COVID-19 on 10/09/23, with worsening respiratory decline. Also concerns for an underlying pneumonia, COPD exacerbation and a urinary tract infection. Admitted requiring 10 to 15L on Oxymask. family states that patient would not want interventions further escalated. And decision was made for comfort measures only status. continue morphine drip Ativan prn for agitation Robinul prn for secretions Tylenol prn for fever as patient was tremulous and diaphoretic earlier and would not consider that to be a comfortable state ICD deactivated by Dr. Perez 10/15 maintain covid isolation (2) COVID-19: Plan: Patient with Covid-19 diagnosed on 10/09/23. Has had progressive respiratory decline. Acute on chronic hypoxic respiratory failure present on arrival. Likely secondary to Covid-19 +COPD. Possibly underlying PNA as well. Saturations improved - patient presently on 10L Oxymask saturating 92% Metabolic encephalopathy - on admission, had been nearly unresponsive at [facility] care withdrawn due to comfort measures only status (3) COPD (chronic obstructive pulmonary disease): Plan: Suspect COPD exacerbation in setting of Covid-19 infection, however no further management due to POWERHOUSE ELECTRICIAN (4) UTI (urinary tract infection): Plan: no further abx under POWERHOUSE ELECTRICIAN Plan No home medications will be continued. Lamictal is for mood stablization and not seizures. Dispo: continued inpatient stay, POWERHOUSE ELECTRICIAN daughters updated at bedside Admission and Anticipated Discharge Date Admission Date: October 15, 2023 Subjective patient seen earlier this morning is unresponsive. Family reports that sometimes she is doing frequent mouth movements that they think is worsening her anxiety but has responded well to Ativan Review of Systems Review of Systems: Unobtainable due to reduced consciousness Physical Exam Physical Exam: patient appears comfortable Not responsive to stimuli Breathing is shallow and slow Results & Data Results & Data Vital Signs (Past 12 Hours) Vital Signs O2 Del Method O2 Flow Rate 10/17/23 09:38 Nasal Cannula 2 PG Care Time/CCT Total # of Minutes Spent Total Time Spent with Patient: Total time spent is greater than 50% in coordination of care (as documented) at patient's floor/unit and/or counseling patient: Coding Level of Care Code 17308 SUB INP/OBS CARE 1/25MIN Diagnoses Comfort measures only status Z51.5 COVID-19 U07.1 COPD (chronic obstructive pulmonary disease) J44.9 UTI (urinary tract infection) N39.0
[2023-10-17] MEDS ORDERED: HYOSCYAMINE SULFATE 0.125 MG TAB SL PRN (20:57)
[2023-10-17] MEDS: ATROPINE SULFATE 1% OP SOLN 5 ML BTL SL PRN (22:09)
[2023-10-18] MEDS: LORazepam 2 MG/1 ML VIAL IV PRN (11:44)
--- NOTE | 2023-10-18 15:37 | Hospitalist Progress Note ---
Date of Service October 18, 2023 Assessment & Plan (1) Comfort measures only status: Plan: patient presented from nursing facility after being diagnosed with COVID-19 on 10/09/23, with worsening respiratory decline. Also concerns for an underlying pneumonia, COPD exacerbation and a urinary tract infection. Admitted requiring 10 to 15L on Oxymask. family states that patient would not want interventions further escalated. And decision was made for comfort measures only status. continue morphine drip Ativan prn for agitation - dose increased to 1mg q3h Robinul prn for secretions Tylenol prn for fever as patient was tremulous and diaphoretic earlier and would not consider that to be a comfortable state ICD deactivated by Dr. Perez 10/15 maintain covid isolation (2) COVID-19: Plan: Patient with Covid-19 diagnosed on 10/09/23. Has had progressive respiratory decline. Acute on chronic hypoxic respiratory failure present on arrival. Likely secondary to Covid-19 +COPD. Possibly underlying PNA as well. Saturations improved - patient presently on 10L Oxymask saturating 92% Metabolic encephalopathy - on admission, had been nearly unresponsive at residential care withdrawn due to comfort measures only status (3) COPD (chronic obstructive pulmonary disease): Plan: Suspect COPD exacerbation in setting of Covid-19 infection, however no further management due to [employer] (4) UTI (urinary tract infection): Plan: no further abx under [employer] PHYSICIAN Plan No home medications will be continued. Lamictal is for mood stablization and not seizures. Dispo: continued inpatient stay, [employer] daughters updated at bedside Admission and Anticipated Discharge Date Admission Date: October 15, 2023 Subjective patient resting comfortably - daughters concerned about how drawn out this process is starting to have respiratory pauses Review of Systems Review of Systems: Unobtainable due to reduced consciousness Physical Exam Physical Exam: patient appears comfortable Not responsive to stimuli Breathing is shallow and slow with pauses Results & Data Results & Data Vital Signs (Past 12 Hours) Vital Signs O2 Del Method O2 Flow Rate 10/18/23 07:27 Nasal Cannula 4 PG Care Time/CCT Total # of Minutes Spent Total Time Spent with Patient: Total time spent is greater than 50% in coordination of care (as documented) at patient's floor/unit and/or counseling patient: Coding Level of Care Code 24410 SUB INP/OBS CARE 1/25MIN Diagnoses Comfort measures only status Z51.5 COVID-19 U07.1 COPD (chronic obstructive pulmonary disease) J44.9 UTI (urinary tract infection) N39.0
[2023-10-18] MEDS: MoRPHine BOLUS from BAG IV PRN (18:18)
--- NOTE | 2023-10-18 20:28 | Death Pronouncement Note ---
Date of Service October 18, 2023 Pronouncement Note Admission Date Admission Date: October 15, 2023 Contributing Factors (1) Comfort measures only status: (2) COVID-19: (3) COPD (chronic obstructive pulmonary disease): (4) UTI (urinary tract infection): Summary Additional details: I was called to pronounce the of Damaso Keita ( 1940) by nursing on 10/18/2023 Upon entering the room, patient was found to be in a terminal state. They were unresponsive to, and did not withdrawal from, verbal or tactile stimuli. They were unresponsive to corneal, pupillary, and oculocephalic reflexes. On cardiopulmonary exam, they were found to be without detectable carotid pulses, and without spontaneous heart tones or respirations. Time of was pronounced by me on 10/18/2023 at 20:22. Attending physician was notified was notified. Next of kin was notified beside. Additional Data Confirmation of : no pulse, no respirations, no heart sounds and pupils fixed and dilated Family: at bedside Attending/PCP notified?: Yes Attending physician: Shad Gonzalez MD Was code activated?: No Autopsy requested?: No
--- NOTE | 2023-10-19 08:40 | Discharge Summary ---
Discharge Summary Date of Service October 19, 2023 Principal Dx & Hospital Course #1 = Principal Diagnosis (1) Comfort measures only status: patient presented from nursing facility after being diagnosed with COVID-19 on 10/09/23, with worsening respiratory decline. Also concerns for an underlying pneumonia, COPD exacerbation and a urinary tract infection. Admitted requiring 10 to 15L on Oxymask. family states that patient would not want interventions further escalated. And decision was made for comfort measures only status. ICD deactivated by Dr. Perez 10/15 Patient was surrounded by family during the entire process and on 10/17. Pronouced by Dr. Diamond at 20:22 (2) COVID-19: Patient with Covid-19 diagnosed on 10/09/23. Has had progressive respiratory decline. Acute on chronic hypoxic respiratory failure present on arrival. Likely secondary to Covid-19 +COPD. Possibly underlying PNA as well. Saturations improved - patient presently on 10L Oxymask saturating 92% Metabolic encephalopathy - on admission, had been nearly unresponsive at half-way care withdrawn due to comfort measures only status (3) COPD (chronic obstructive pulmonary disease): Suspect COPD exacerbation in setting of Covid-19 infection, however no further management due to [employer]Y (4) UTI (urinary tract infection): no further abx under [employer] Plan Dispo: patient Admission HPI Per Admitting Provider Damaso Keita is an 83yo female with history of COPD,chronic hypoxic respiratory failure on PRN O2, CAD s/p CABG, AICD in place presenting with shortness of breath. Patient resides at [facility] in [place]. She has baseline dementia. Diagnosed with Covid-19 on 10/09/23. Daughter is at bedside and provides history as patient is nonverbal at this time. She reports that patient has been having progressive decline over the last couple of days - coughing, "gurgling" sound in her chest and worsening shortness of breath and hypoxia requiring continuous supplemental O2. Daughter has been staying in the NH room over the last couple of nights. Patient has had fever - last yesterday. She has not been eating, drinking or taking her medications for the last two days. Has not been able to swallow. She has had a moist cough with a lot of upper airway secretions. No nausea/vomiting/diarrhea. She was given some IVF at [facility]. In the ER patient afebrile, tachycardic, tachypneic, saturating 92% on 10L/min Oxymask ER Course: Zosyn Solumedrol NSS Discharge Plan Discharge Items Patient Disposition: Other Date/Time: 10/18/23 20:22 Hospital Stay Data Consultations 10/15/23 04:34 ED Decision to Admit Stat Total Time Total Time Spent Total Time Spent (In Minutes): 10 Coding Level of Care Code 75001 IN/OBS DISCH 30 MIN/LESS Diagnoses Comfort measures only status Z51.5 COVID-19 U07.1 COPD (chronic obstructive pulmonary disease) J44.9 UTI (urinary tract infection) N39.0
== END 2023-10-18 22:30 | disposition expired | DRG 177 ==
LOC: SUATTDRO → ED 02:44 → 2S 04:39 → SUATTDRO 04:39 → 2S 07:50 → 3W 19:02